=== PATIENT | female | born 1960 | race Caucasian/White ===

== ENCOUNTER → 2016-12-09 | Outpatient (CLI) | payer BC ==
[~2016-12-09] MED LIST: ADVIN25/60 INH; ALBUAER19 INH; ALPR-411 PO; APIX1TAB3 PO; ASPI81TA28 PO; BUPR150T7 PO; BUPR200T2 PO; CALC500T83 PO; DIPH25CA5 PO; GABA-113 PO; LIOT5TAB PO; LIOT5TAB9 PO; METF1000 PO; MULT-506 PO; OMEP20CA59 PO; PRAV80TA2 PO; PRVC40 PO; SNG10 PO; SPIR25TA PO; SPRIN/30 INH; SYN125 PO; THIO5CAP2 PO; TIOTCAP INH; TMB100 PO; VERA1TAB60 PO; VNTHFA/IN INH; VRPSR240 PO
--- NOTE | 2016-12-09 10:18 | DIAGNOSTIC IMAGING REPORT ---
(BARIUM SWALLOW) ESOPHAGUS CLINICAL HISTORY: DIFFICULTY SWALLOWING COMPARISON STUDY: None FLUOROSCOPY TIME: 1.4 minutes. 24 fluoroscopic spot images were acquired.. FINDINGS: The patient swallowed effervescent granules and barium without difficulty. Spot films of the pharynx examination were unremarkable. Slight mechanics appeared normal. There is no aspiration. No esophageal masses or ulcerations were visualized. The patient swallowed one half inch barium tablet which freely passed the stomach. There is disordered esophageal motility. There is a small sliding hiatal hernia. IMPRESSION: Small sliding hiatal hernia. Disordered esophageal motility. Otherwise normal study. Electronically signed by: Eric Agarwal M.D. 12/09/2016 10:16 AM Dictated Date/Time: 12/09/2016 10:14 AM
== END | disposition home or self-care (01) ==
LOC: C.RAD 09:02
PROVIDERS: ATTEND Family Medicine
DX: K22.4 Dyskinesia of esophagus (principal); K44.9 Diaphragmatic hernia without obstruction or gangrene

== ENCOUNTER → 2017-05-25 | Outpatient (CLI) | payer BC ==
[~2017-05-25] MED LIST changes: +BND25 PO; -DIPH25CA5 PO
--- NOTE | 2017-05-27 15:48 | MAMMOGRAPHY REPORT ---
BILATERAL DIGITAL SCREENING MAMMOGRAM TOMOSYNTHESIS WITH CAD: 05/25/2017 CLINICAL HISTORY: Routine screening. Patient has no complaints. TECHNIQUE: Breast tomosynthesis in addition to standard 2D mammography was performed. Current study was also evaluated with a Computer Aided Detection (CAD) system. Note that the patient had to return on 05/27/2017 for repeat bilateral CC and MLO 2-D images due to motion artifact. COMPARISON: Comparison is made to exams dated: 06/02/2016 mammogram, 05/19/2016 mammogram, 05/06/2016 mammogram, 05/05/2015 mammogram, 05/02/2014 mammogram, and 04/26/2013 mammogram - [facility] enter. BREAST COMPOSITION: There are scattered areas of fibroglandular density in both breasts. FINDINGS: No suspicious masses, calcifications, or areas of architectural distortion are noted in ei ther breast. There are new post surgical changes in the right subareolar breast from surgical excisi on of a papilloma, with new architectural distortion and density noted at the surgical bed. Bilatera l benign-appearing calcifications are not significantly changed. Bilateral asymmetries are stable. IMPRESSION: ACR BI-RADS CATEGORY 2: BENIGN There is no mammographic evidence of malignancy in either breast. A 1 year screening mammogram is rec ommended. The patient will receive written notification of the results. Approximately 10% of breast cancers are not detected with mammography. A negative mammographic report should not delay biopsy if a clinically suggestive mass is present. Annabel Lopez M.D. /:05/27/2017 12:36:58 Newspaper Managing Editor: Terra HENNESSY(Bianka)(Lamar)(CANDELARIO), [facility] letter sent: Normal 1/2 BI-RADS Code: ACR BI-RADS Category 2: Benign
== END | disposition home or self-care (01) ==
LOC: C.MAMM 17:02
PROVIDERS: ATTEND Obstetrics & Gynecology
DX: Z12.31 Encounter for screening mammogram for malignant neoplasm of breast (principal)

== ENCOUNTER 2017-05-27 15:39 | Inpatient (IN) | payer BC, OTHER ==
[~2017-05-27] VITALS: Ht 154.9 cm; Wt 74.1 kg
[2017-05-27] VITALS (7 sets, daily range): BP systolic 119–184; BP diastolic 73–94; PULSE 66–89; TEMP 36.4–36.5; O2SAT 93–98; Ht 154.9 cm; Wt 74.1 kg
[~2017-05-27 15:39] MED LIST changes: -ADVIN25/60 INH; -BND25 PO; -BUPR200T2 PO; -LIOT5TAB9 PO; -METF1000 PO; -OMEP20CA59 PO; -PRAV80TA2 PO; -SPRIN/30 INH; -VNTHFA/IN INH; -VRPSR240 PO
[2017-05-27] MEDS ORDERED: SODIUM CHLORIDE 0.9% 1000ML 1,000 ML IV SCH ×2 (16:09→20:00)
[2017-05-27 16:34] LABS: BASO % 0.3 %; BASO ABS # 0.02 K/uL (0-0.2); COMPLETE YES; EOS % 1.3 %; HEMATOCRIT 39.9 % (37-47); IG% 0.1 %; LYMPH % 33.2 %; MEAN CELL VOLUME 71.3 fL (80-100); MEAN CORPUSCULAR HEMOGLOBIN 24.6 pg (25-34); MEAN CORPUSCULAR HGB CONC 34.6 g/dl (32-36); MONO % 11.7 %; NEUT % 53.4 %; PLATELET COUNT 289 K/uL (130-400); WHITE BLOOD COUNT 6.93 K/uL (4.8-10.8)
--- NOTE | 2017-05-27 16:34 | DIAGNOSTIC IMAGING REPORT ---
HEAD WITHOUT CONTRAST (CT) CLINICAL HISTORY: 56 years-old Female presenting with Stroke. TECHNIQUE: Multidetector CT imaging of the head was performed without the use of intravenous contrast. IV contrast: None. A dose lowering technique was used consistent with the principles of ALARA (as low as reasonably achievable). COMPARISON: 11/04/2013. CT DOSE (mGy.cm): The estimated cumulative dose is 537.48 mGy.cm. FINDINGS: Frame Catcher topogram: Unremarkable. Ventricles and sulci normal in size. Periventricular and subcortical white matter hypoattenuation, nonspecific but likely indicative of chronic small vessel ischemic change. This is unchanged from prior exam. No mass effect or midline shift. No hemorrhage or acute territorial infarct. No extra-axial fluid collection. Paranasal sinuses and mastoid air cells clear. Calvarium intact. IMPRESSION: 1. No acute intracranial pathology. 2. Stable appearance of extensive chronic small vessel ischemic change. Electronically signed by: Rafael Nelson M.D. 05/27/2017 4:33 PM Dictated Date/Time: 05/27/2017 4:32 PM
[2017-05-27 16:42] LABS: INR 0.9 (0.9-1.1); PARTIAL THROMBOPLASTIN RATIO 1.3; PROTHROMBIN TIME (PATIENT) 9.9 SECONDS (9.0-12.0)
[2017-05-27 16:45] LABS: BLOOD UREA NITROGEN 11 mg/dl (7-18); BUN/CREATININE RATIO 15.5 (10-20); CALCIUM 9.4 mg/dl (8.5-10.1); CARBON DIOXIDE 24 mmol/L (21-32); CHLORIDE 92 mmol/L (98-107); CREATININE 0.68 mg/dl (0.60-1.20); GLUCOSE 92 mg/dl (70-99); POTASSIUM 4.3 mmol/L (3.5-5.1); SODIUM 127 mmol/L (136-145)
[2017-05-27 16:49] LABS: CKMB/CK RATIO 1.3 (0-3.0)
--- NOTE | 2017-05-27 17:00 | DIAGNOSTIC IMAGING REPORT ---
CHEST ONE VIEW PORTABLE CLINICAL HISTORY: 56 years-old Female presenting with Stroke. TECHNIQUE: Portable upright AP view of the chest was obtained. COMPARISON: 10/25/2014. FINDINGS: Atherosclerosis of aortic arch. Cardiac silhouette top normal in size. Lungs and pleural spaces clear. Osseous structures normal. Upper abdomen normal. IMPRESSION: 1. No acute cardiopulmonary disease. Electronically signed by: Rafael Nelson M.D. 05/27/2017 4:58 PM Dictated Date/Time: 05/27/2017 4:57 PM
[2017-05-27] MEDS ORDERED: PRAV80TA2 PO (17:52)
[2017-05-27] MEDS ORDERED: VRPSR240 PO (17:52)
[2017-05-27] MEDS ORDERED: BUPR200T2 PO (17:52)
[2017-05-27] MEDS ORDERED: LIOT5TAB9 PO (17:52)
[2017-05-27] MEDS ORDERED: ADVIN25/60 INH (17:55)
[2017-05-27] MEDS ORDERED: SPRIN/30 INH (17:55)
[2017-05-27] MEDS ORDERED: VNTHFA/IN INH (17:56)
--- NOTE | 2017-05-27 18:12 | EMERGENCY ROOM VISIT NOTE ---
History Report prepared by Natalya: Asmita Polanco Under the Supervision of: Dr. Basilio Flores M.D. First contact with patient: 16:00 Chief Complaint: STROKE SYMPTOMS Stated Complaint: DIZZINESS Nursing Triage Summary: pt to the ED via EMS from home after around 1415 she felt like something let loose in her head. pt states that she thinks she has a bleeding on her brain. she has a hx of previous CVA and LA with stents pt states that she has a funny feeling on her left arm and left leg as well as face History of Present Illness The patient is a 56 year old female who presents to the Emergency Room with complaints of persistent stroke symptoms starting 1415 today. The patient was watching TV and drinking coffee when she felt "something let go" in her brain. She is concerned for a brain bleed because she is on Eliquis. She started having dizziness which she describes as a lightheadedness and loss of equilibrium. She denies any room spinning. She had trouble walking and abnormal speech. She was not slurring her speech, but states that her mouth felt like it was not working. She was able to find words and understand words. She was with her son at the time. Her dizziness is improving. She is started to have a headache on the left side. She denies any fever or recent illness. She had a stroke 20 years ago. She had trouble writing with her right hand at that time.she currently still has some problems with fine motor skills in the right hand. She has a history of atrial fibrillation. Source of History: patient Onset: 1414 today Position: other (global) Quality: other (stroke symptoms) Timing: other (persistent) Associated Symptoms: + headache, No fevers, No weakness, No numbness Note: Pt reports lightheadedness, trouble walking, abnormal speech. Review of Systems See HPI for pertinent positives & negatives. A total of 10 systems reviewed and were otherwise negative. Past Medical & Surgical Medical Problems: (1) Asthma W/O Status Asthm (2) Asthma, Chronic Obstructive Wo Asthmaticus, Act Exac Or Unsp (3) Coron Atheroscler Nos Type Vessel, [place] Or Graft (4) Coronary Atherosclerosis Of [place] Coronary Vessel (5) Diab Ximena Wo Compl, Type Ii Or Unspec Type, Not Uncntrld (6) Diaphragmatic Hernia (7) Difficulty speaking (8) Diverticulosis Colon (W/O Ment Of Hemorrhage) (9) Dysmetabolic Syndrome X (10) Esophageal Reflux (11) Hyperlipidemia Nec/Nos (12) Hypertension (13) Hypertension Nos (14) Hypothyroidism Nos (15) Imbalance (16) Migraine Unspecified W/O Intractable Migraine (17) Obstructive Sleep Apnea (Adult) (Pediatric) (18) Osteomyelitis Nos-Ankle (19) Osteoporosis Nos (20) Schizoaffective Disorder, Unspecified (21) Tobacco Use Disorder Surgical Problems: (1) History of tubal ligation (2) History of wisdom tooth extraction (3) Percutaneous Translum Coron Angioplasty Status Family History Patient reports no known family medical history. Social History Smoking Status: Former Smoker Alcohol Use: none Drug Use: none Marital Status: Housing Status: lives with family Occupation Status: disabled Current/Historical Medications Scheduled Apixaban (Eliquis), 5 MG PO BID Aspirin (Aspirin Ec), 81 MG PO HS Bupropion Hcl (Wellbutrin Sr), 200 MG PO QAM Flecainide Acetate (Flecainide Acetate), 100 MG PO BID Fluticasone Prop/Salmeterol (Advair Diskus 250/50 60 Dose), 1 PUFF INH BID Levothyroxine Sodium (Synthroid), 125 MCG PO HS Liothyronine Sodium (Liothyronine Sodium), 5 MCG PO BID Metformin Hcl (Glucophage), 1,000 MG PO BID Montelukast Sod (Montelukast Sodium), 10 MG PO HS Multivitamin (Multivitamin), 1 TAB PO QAM Omeprazole (Prilosec), 20 MG PO BID Pravastatin Sodium (Pravastatin Sodium), 80 MG PO HS Spironolactone (Aldactone), 12.5 MG PO BID Thiothixene (Navane), 5 MG PO HS Tiotropium Monon (Spiriva Handihaler), 1 PUFF INH HS Verapamil HCl (Verapamil HCl ER), 240 MG PO HS Scheduled PRN Albuterol Hfa (Ventolin Hfa), 2 PUFFS INH QID PRN for SOB/Wheezing Diphenhydramine Hcl (Benadryl), 25 MG PO Q4H PRN for Allergy Symptoms Allergies Coded Allergies: Tetracycline (Verified Allergy, Intermediate, RASH; "MYCINS" ALLERGY, 02/17) Clindamycin (Verified Allergy, Unknown, "MYCINS" ALLERGY, 02/18/16) Diltiazem (Verified Allergy, Unknown, ?, 02/18/16) Sulfa Antibiotics (Verified Allergy, Unknown, ?, 02/18/16) Sumatriptan (Verified Allergy, Unknown, "TRIPTANS" ALLERGY, 02/13/16) Beta Adrenergic Blockers (Verified Adverse Reaction, Severe, SYNCOPE PER PATIENT, 02/13/16) Codeine (Verified Adverse Reaction, Severe, SYNCOPE PER PATIENT, 02/13/16) Acetaminophen (Verified Adverse Reaction, Mild, GI UPSET, 02/18/16) Oxycodone (Verified Adverse Reaction, Mild, GI UPSET, 02/18/16) Uncoded Allergies: METAL JEWELRY (Adverse Reaction, Mild, ITCHINESS "WITH CHEAP JEWELRY", 02/12) Physical Exam Vital Signs Date Time Temp Pulse Resp B/P (MAP) Pulse Ox O2 Delivery O2 Flow Rate FiO2 05/27/17 18:05 80 150/91 94 05/27/17 16:49 83 05/27/17 16:00 190/93 05/27/17 15:51 36.9 86 20 203/118 96 Room Air Physical Exam Constitutional: Vital signs reviewed. Repeat blood pressure is 190/93. Eyes: Pupils are equal round reactive to light. Conjunctiva are noninjected. ENT: Pharynx is clear without erythema or exudate. Mucous membranes are moist. Neck supple without meningeal signs. Respiratory: Clear to auscultation bilaterally. Breath sounds are equal bilaterally. Cardiovascular: Regular rate and rhythm. No rubs or gallops. GI: Soft, nondistended and nontender. Bowel sounds are present. Musculoskeletal: No peripheral edema. No lower extremity tenderness. Integumentary: No cyanosis. Neurological: The patient is awake and alert. Cranial nerves II-XII are intact , except diminished sensation to the left mid and upper face. Motor is 5 out of 5 all extremities. Sensation is intact to light touch all extremities, except diminished sensation to the left arm and leg. Normal speech. No pronator drift. No limb ataxia. Psychiatric: Normal affect. Medical Decision & Procedures ER Provider Diagnostic Interpretation: X-ray results as stated below per interpretation by me and the radiologist. Radiology results as stated below per my review and the radiologist's interpretation: CHEST ONE VIEW PORTABLE CLINICAL HISTORY: 56 years-old Female presenting with Stroke. TECHNIQUE: Portable upright AP view of the chest was obtained. COMPARISON: 10/25/2014. FINDINGS: Atherosclerosis of aortic arch. Cardiac silhouette top normal in size. Lungs and pleural spaces clear. Osseous structures normal. Upper abdomen normal. IMPRESSION: 1. No acute cardiopulmonary disease. Electronically signed by: Rafael Nelson M.D. 05/27/2017 4:58 PM Dictated Date/Time: 05/27/2017 4:57 PM HEAD WITHOUT CONTRAST (CT) CLINICAL HISTORY: 56 years-old Female presenting with Stroke. TECHNIQUE: Multidetector CT imaging of the head was performed without the use of intravenous contrast. IV contrast: None. A dose lowering technique was used consistent with the principles of ALARA (as low as reasonably achievable). COMPARISON: 11/04/2013. CT DOSE (mGy.cm): The estimated cumulative dose is 537.48 mGy.cm. FINDINGS: Nurse Companion topogram: Unremarkable. Ventricles and sulci normal in size. Periventricular and subcortical white matter hypoattenuation, nonspecific but likely indicative of chronic small vessel ischemic change. This is unchanged from prior exam. No mass effect or midline shift. No hemorrhage or acute territorial infarct. No extra-axial fluid collection. Paranasal sinuses and mastoid air cells clear. Calvarium intact. IMPRESSION: 1. No acute intracranial pathology. 2. Stable appearance of extensive chronic small vessel ischemic change. Electronically signed by: Rafael Nelson M.D. 05/27/2017 4:33 PM Dictated Date/Time: 05/27/2017 4:32 PM Laboratory Results 05/27/17 15:18 Red Blood Count 5.60, Mean Corpuscular Volume 71.3, Mean Corpuscular Hemoglobin 24.6, Mean Corpuscular Hemoglobin Concent 34.6, Mean Platelet Volume 10.0, Neutrophils (%) (Auto) 53.4, Lymphocytes (%) (Auto) 33.2, Monocytes (%) (Auto) 11.7, Eosinophils (%) (Auto) 1.3, Basophils (%) (Auto) 0.3, Neutrophils # (Auto ) 3.70, Lymphocytes # (Auto) 2.30, Monocytes # (Auto) 0.81, Eosinophils # (Auto ) 0.09, Basophils # (Auto) 0.02 05/27/17 15:18 Test 05/27/17 15:18 White Blood Count 6.93 K/uL (4.8-10.8) Red Blood Count 5.60 M/uL (4.2-5.4) Hemoglobin 13.8 g/dL (12.0-16.0) Hematocrit 39.9 % (37-47) Mean Corpuscular Volume 71.3 fL (80-100) Mean Corpuscular Hemoglobin 24.6 pg (25-34) Mean Corpuscular Hemoglobin Concent 34.6 g/dl (32-36) Platelet Count 289 K/uL (130-400) Mean Platelet Volume 10.0 fL (7.4-10.4) Neutrophils (%) (Auto) 53.4 % Lymphocytes (%) (Auto) 33.2 % Monocytes (%) (Auto) 11.7 % Eosinophils (%) (Auto) 1.3 % Basophils (%) (Auto) 0.3 % Neutrophils # (Auto) 3.70 K/uL (1.4-6.5) Lymphocytes # (Auto) 2.30 K/uL (1.2-3.4) Monocytes # (Auto) 0.81 K/uL (0.11-0.59) Eosinophils # (Auto) 0.09 K/uL (0-0.5) Basophils # (Auto) 0.02 K/uL (0-0.2) RDW Standard Deviation 43.7 fL (36.4-46.3) RDW Coefficient of Variation 17.0 % (11.5-14.5) Immature Granulocyte % (Auto) 0.1 % Immature Granulocyte # (Auto) 0.01 K/uL (0.00-0.02) Prothrombin Time 9.9 SECONDS (9.0-12.0) Prothromb Time International Ratio 0.9 (0.9-1.1) Activated Partial Thromboplast Time 34.9 SECONDS (21.0-31.0) Partial Thromboplastin Ratio 1.3 Anion Gap 11.0 mmol/L (3-11) Est Creatinine Clear Calc Drug Dose 85.8 ml/min Estimated GFR () 111.8 Estimated GFR (Non- 96.4 BUN/Creatinine Ratio 15.5 (10-20) Calcium Level 9.4 mg/dl (8.5-10.1) Total Creatine Kinase 94 U/L (26-192) Creatine Kinase MB 1.2 ng/ml (0.5-3.6) Creatine Kinase MB Ratio 1.3 (0-3.0) Troponin I < 0.015 ng/ml (0-0.045) Laboratory results as reviewed by me. Medications Administered Medications (Trade) Dose Ordered Sig/Lulu Route Start Time Stop Time Status Last Admin Dose Admin Sodium Chloride 1,000 ml @ 50 mls/hr Q20H IV 05/27/17 16:09 06/26/17 16:08 05/27/17 16:39 50 MLS/HR ECG Indication: other (stroke symptoms) Rate (beats per minute): 89 Rhythm: normal sinus Findings: ST depression (slight in V4-V6), no ectopy ED Course 1602: The patient was evaluated in room A4A. A complete history and physical exam was performed. 1609: NSS 1000 ml @ 50 mls/hr IV. 1700: I reevaluated the patient. Her blood pressure is now 178/96. She had a headache lasting 30-[address] which has completely resolved. I discussed the results with her. She verbalizes agreement of the treatment plan. She will be evaluated for further management. 1710: [facility] We discussed the patient and her results. The patient will be further evaluated by her. 1740: I spoke with Rhonda Lopez and informed her about the EKG findings. Medical Decision This is a 56-year-old female who presents with neurologic symptoms. Differential diagnosis includes TIA, CVA, intracranial hemorrhage, intracranial mass, metabolic derangement. I did perform a limited focused review of portions of the patient's old chart on the electronic medical record. The patient has had no recent pertinent visits to this hospital. I did evaluate the patient as noted above. The patient is presenting with dizziness and trouble with her speech starting at 2:00 PM today. She is taking Eliquis and is therefore not a TPA candidate. On examination she does have some diminished sensation on the left side including her arm, leg and upper and mid face. IV access was established. The patient was placed on a continuous diagnostic cardiac sonographer. I did order and personally review the patient's 12-lead EKG and chest x-ray as described above. Her EKG shows some mild ST depressions but she denies any chest pain or shortness of breath. I did order and review the patient's blood work as noted in the electronic medical record. Troponin is negative. She is mildly hyponatremic. I did order a CT of the head. I did review the images myself as well as the radiology report as described above. There is no evidence of acute intracranial process. I did reassess the patient. Her blood pressure steadily decreasing without any intervention. She states that whenever she goes to Hospital she has very high blood pressure which comes down on its own over several hours. I did discuss the test results with the patient and recommended hospitalization for further evaluation. I did discuss case with the hospitalist and case management associate. Medication Reconcilliation Current Medication List: was personally reviewed by me Blood Pressure Screening Patient's blood pressure: Elevated blood pressure Blood pressure disposition: Referred to PCP Consults Time Called: 1705 Consulting Physician: Rhonda Lopez PA-C [facility] hospitalist service Returned Call: 1710 I spoke with her. We discussed the patient and her results. The patient will be further evaluated by her. Impression Primary Impression: Dysarthria Additional Impressions: Disequilibrium Hyponatremia Poorly-controlled hypertension Left sided numbness Scribe Attestation The scribe's documentation has been prepared under my direct and personally reviewed by me in its entirety. I confirm that the note above accurately reflects all work, treatment, procedures, and medical decision making performed by me. Departure Information Dispostion Being Evaluated By Hospitalist Referrals Rd Anglin D.O. (PCP) Patient Instructions My [facility] Problem Qualifiers
[2017-05-27] MEDS ORDERED: BND25 PO (18:28)
[2017-05-27] MEDS ORDERED: METF1000 PO (18:28)
[2017-05-27] MEDS ORDERED: OMEP20CA59 PO (18:28)
[2017-05-27] MEDS ORDERED: ONDANSETRON INJ 2 MG/ML 2 ML VIAL IV PRN (18:45)
[2017-05-27] MEDS ORDERED: PHARMACIST DISCHARGE MED REC CONSULT PRN (18:45)
[2017-05-27] MEDS ORDERED: ASPIRIN 81 MG ECTAB PO ONE (19:20)
[2017-05-27] MEDS ORDERED: ALBUTEROL HFA 8 GM INHALER INH PRN (19:30)
--- NOTE | 2017-05-27 20:24 | History and Physical ---
History & Physical Date & Time of Service: May 27, 2017 at 19:49 Chief Complaint: Difficulty Speaking, Imbalance Primary Care Physician: Rd Anglin D.O. History of Present Illness Source: patient, clinic records, hospital records This is a 56yo F with a PMH of HTN, DM II, remote history of CVA, chronic A Fib (on Eliquis), CAD (s/p stent), schizoaffective disorder and other medical problems listed below who presents with stroke-like symptoms around 2 this afternoon. Patient was at home watching TV when she suddenly felt like "something let up" in her head. She further clarified this to mean that she felt a zimmerman of fluid to her head. When she stood up to get her son, she felt imbalanced while walking and had to hold onto the wall. When discussing these events with her son, she states that it was difficult to move her bottom lip. Also endorses a L-sided headache. Denies any facial droop, difficulty with word finding, motor weakness, etc. Son called EMS and patient was evaluated in the ER. By this point, all previous symptoms had resolved and patient started to experience L sided numbness including her L upper cheek, forearm and chance. Had a stroke approximately 20 years ago and has residual difficulty with fine motor skills such as chopping and dicing vegetables. Unable to find any imaging on chart review. Patient has been taking all medications regularly, including a Eliquis, baby aspirin and a statin. Admits to eating a high sodium diet lately and home BP readings have subsequently been higher than usual, with an average SBP of 175- 180. Denies any current lightheadedness, headache, visual changes, difficulty with speech, CP, SOB, weakness in any extremity, difficult with ambulation. Continues to endorse a fuzzy, numb feeling on left cheek. Numbness of L forearm and L lower leg are resolving. Past Medical/Surgical History Medical Problems: (1) Atrial fibrillation Status: Chronic (2) CAD (coronary artery disease) Status: Chronic (3) COPD (chronic obstructive pulmonary disease) Status: Chronic (4) Depression Status: Chronic (5) DM II (diabetes mellitus, type II), controlled Status: Chronic (6) Hypertension Status: Chronic (7) RAKESH on CPAP Status: Chronic (8) Schizoaffective disorder Status: Chronic Surgical Problems: (1) History of tubal ligation Status: Resolved (2) History of wisdom tooth extraction Status: Resolved Family History Family history was reviewed; no changes noted. Social History Smoking Status: Former Smoker (Quit in 2009) Drug Use: none Marital Status: Housing status: lives with family Occupational Status: disabled Immunizations History of Influenza Vaccine: N/A History of Tetanus Vaccine?: Yes History of Pneumococcal: Yes History of Hepatitis B Vaccine: Yes Multi-Drug Resistant Organisms History of MDRO: No Allergies Coded Allergies: Tetracycline (Verified Allergy, Intermediate, RASH; "MYCINS" ALLERGY, 02/17) Clindamycin (Verified Allergy, Unknown, "MYCINS" ALLERGY, 02/18/16) Diltiazem (Verified Allergy, Unknown, ?, 02/18/16) Sulfa Antibiotics (Verified Allergy, Unknown, ?, 02/18/16) Sumatriptan (Verified Allergy, Unknown, "TRIPTANS" ALLERGY, 02/13/16) Beta Adrenergic Blockers (Verified Adverse Reaction, Severe, SYNCOPE PER PATIENT, 02/13/16) Codeine (Verified Adverse Reaction, Severe, SYNCOPE PER PATIENT, 02/13/16) Acetaminophen (Verified Adverse Reaction, Mild, GI UPSET, 02/18/16) Oxycodone (Verified Adverse Reaction, Mild, GI UPSET, 02/18/16) Uncoded Allergies: METAL JEWELRY (Adverse Reaction, Mild, ITCHINESS "WITH CHEAP JEWELRY", 02/12) Home Medications Scheduled Apixaban (Eliquis), 5 MG PO BID Aspirin (Aspirin Ec), 81 MG PO HS Bupropion Hcl (Wellbutrin Sr), 200 MG PO QAM Flecainide Acetate (Flecainide Acetate), 100 MG PO BID Fluticasone Prop/Salmeterol (Advair Diskus 250/50 60 Dose), 1 PUFF INH BID Levothyroxine Sodium (Synthroid), 125 MCG PO HS Liothyronine Sodium (Liothyronine Sodium), 5 MCG PO BID Metformin Hcl (Glucophage), 1,000 MG PO BID Montelukast Sod (Montelukast Sodium), 10 MG PO HS Multivitamin (Multivitamin), 1 TAB PO QAM Omeprazole (Prilosec), 20 MG PO BID Pravastatin Sodium (Pravastatin Sodium), 80 MG PO HS Spironolactone (Aldactone), 12.5 MG PO DAILY Thiothixene (Navane), 5 MG PO HS Tiotropium [place] (Spiriva [place]), 1 PUFF INH HS Verapamil HCl (Verapamil HCl ER), 240 MG PO HS Scheduled PRN Albuterol Hfa (Ventolin Hfa), 2 PUFFS INH QID PRN for SOB/Wheezing Review of Systems Constitutional- no fever; no weight loss Eyes- See HPI ENT- no sinus drainage; no pharyngitis Pulmonary- no cough, no wheezing, no shortness of breath Cardiac- See HPI GI- no nausea, no vomiting, no diarrhea, no melena, no hematochezia - no dysuria, no hematuria Musculoskeletal- no arthralgias, no myalgias Derm- no rashes, no new skin lesions, no changing skin lesions Hematologic- no unusual bruising, no unusual bleeding Lymphatics- no adenopathy Endocrine- no polyuria or polydipsia; no heat or cold intolerance Neuro- See HPI Psych- no anxiety, no depression Physical Exam Vital Signs Date Time Temp Pulse Resp B/P (MAP) Pulse Ox O2 Delivery O2 Flow Rate FiO2 05/27/17 19:30 36.4 84 18 184/77 (112) 94 Room Air 05/27/17 19:21 36.4 84 18 184/77 94 Room Air 05/27/17 18:05 80 150/91 94 05/27/17 16:49 83 05/27/17 16:00 190/93 05/27/17 15:51 36.9 86 20 203/118 96 Room Air General Appearance: WD/WN, no apparent distress, + pertinent finding (Some involuntary movement of mouth and tongue) Head: normocephalic, atraumatic Eyes: normal inspection, PERRL, EOMI, sclerae normal ENT: hearing grossly normal Neck: supple, no adenopathy, thyroid normal, trachea midline Respiratory/Chest: chest non-tender, no respiratory distress, no accessory muscle use, + wheezing (Scattered expiratory wheezes) Cardiovascular: regular rate, rhythm, no murmur, normal peripheral pulses Abdomen/GI: normal bowel sounds, non tender, soft, no organomegaly Back: normal inspection Extremities/Musculoskelatal: normal inspection, no calf tenderness, normal capillary refill, no pedal edema Neurologic/Psych: towel 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 Otherwise CN exam wnl. FAROM, 5/5 ERMIAS. Gait normal. Negative pronator drift.), no motor/sensory deficits, alert, normal mood/affect, oriented x 3 Skin: normal color, warm/dry, no rash Diagnostics Laboratory Results Results Past 24 Hours Test 05/27/17 15:18 05/27/17 16:35 Range/Units White Blood Count 6.93 4.8-10.8 K/uL Red Blood Count 5.60 4.2-5.4 M/uL Hemoglobin 13.8 12.0-16.0 g/dL Hematocrit 39.9 37-47 % Mean Corpuscular Volume 71.3 80-100 fL Mean Corpuscular Hemoglobin 24.6 25-34 pg Mean Corpuscular Hemoglobin Concent 34.6 32-36 g/dl Platelet Count 289 130-400 K/uL Mean Platelet Volume 10.0 7.4-10.4 fL Neutrophils (%) (Auto) 53.4 % Lymphocytes (%) (Auto) 33.2 % Monocytes (%) (Auto) 11.7 % Eosinophils (%) (Auto) 1.3 % Basophils (%) (Auto) 0.3 % Neutrophils # (Auto) 3.70 1.4-6.5 K/uL Lymphocytes # (Auto) 2.30 1.2-3.4 K/uL Monocytes # (Auto) 0.81 0.11-0.59 K/uL Eosinophils # (Auto) 0.09 0-0.5 K/uL Basophils # (Auto) 0.02 0-0.2 K/uL RDW Standard Deviation 43.7 36.4-46.3 fL RDW Coefficient of Variation 17.0 11.5-14.5 % Immature Granulocyte % (Auto) 0.1 % Immature Granulocyte # (Auto) 0.01 0.00-0.02 K/uL Prothrombin Time 9.9 9.0-12.0 SECONDS Prothromb Time International Ratio 0.9 0.9-1.1 Activated Partial Thromboplast Time 34.9 21.0-31.0 SECONDS Partial Thromboplastin Ratio 1.3 Sodium Level 127 136-145 mmol/L Potassium Level 4.3 3.5-5.1 mmol/L Chloride Level 92 98-107 mmol/L Carbon Dioxide Level 24 21-32 mmol/L Anion Gap 11.0 3-11 mmol/L Blood Urea Nitrogen 11 7-18 mg/dl Creatinine 0.68 0.60-1.20 mg/dl Est Creatinine Clear Calc Drug Dose 85.8 ml/min Estimated GFR () 111.8 Estimated GFR (Non- 96.4 BUN/Creatinine Ratio 15.5 10-20 Random Glucose 92 70-99 mg/dl Osmolality 264 280-300 mOsm/kg Calcium Level 9.4 8.5-10.1 mg/dl Total Creatine Kinase 94 26-192 U/L Creatine Kinase MB 1.2 0.5-3.6 ng/ml Creatine Kinase MB Ratio 1.3 0-3.0 Troponin I < 0.015 0-0.045 ng/ml Bedside Glucose 98 70-90 mg/dl Diagnostic Radiology Head CT: IMPRESSION: 1. No acute intracranial pathology. 2. Stable appearance of extensive chronic small vessel ischemic change. CXR normal EKG Normal sinus rhythm Possible Left atrial enlargement Otherwise Normal ECG Impression Assessment and Plan This is a 56yo F with a PMH of HTN, DM II, remote history of CVA, chronic A Fib (on Eliquis), CAD (s/p stent), schizoaffective disorder and other medical problems listed below who presents with stroke-like symptoms around 2 this afternoon. Stroke work-up: -H/o CVA 20 years ago at age 33 -Unable to obtain more details on chart review -Has residual difficulty with fine motor movement of hands -CT head without any acute event -Work up: MRI brain without, MRA head without, MRA neck combo, echo -Fasting lipid panel and hgb a1c in AM -Continue baby aspirin, statin, Eliquis -Discussed with neuro, who recommended an extra dose of aspirin -PT/OT/Speech evals, discharge planning H/o insulin resistance: -Last hgb a1c of 5.8 -Takes metformin at home -No formal diagnosis of DM II -Continue metformin -BG checks AC HS Hyponatremia: -Na of 125 on admission -Dry on exam; initiated 1 L NSS @ 75mL -Held spironolactone -Could be SIADH 2/2 antipsychotic side effects -Serum osm, urine osm pending -Check Na Q4 hours A fib: -NSR on admission EKG -Continue Eliquis, flecainide HTN: -Initially elevated to SBP of 200, now down to 184/77 -Continue verapamil -Held spironolactone for now COPD: -Stable -Continue home inhalers, nebs, singular -Does not require home O2 CAD (s/p stent): -No chest pain -EKG with NSR, some questionable ST depression in V4-V6 -Initial troponin negative -Repeat EKG in AM RAKESH: -Stable -CPAP set-up ordered Hypothyroidism: -Continue home meds Schizoaffective disorder: -Continue thiothixene -Follows with out-patient psychiatrist Depression: -Continue bupropion DVT Ppx: On Eliquis Code status: FULL PCP: MEREDITH consulted for discharge per stroke protocol ATTENDING ADDENDUM delayed entry date of services as noted above care coordinated with DAKOTA Lopez please refer to her notes for full details, I agree with her notes patient seen and examined, records reviewed by myself as well on exam, patient seen sitting up in bed, in good spirits states left lower face numbness, left arm and lower leg numbness are improving denies other new neurologic symptoms no other symptoms VS noted and reviewed oriented x 3 , not in distress, speaks in sentences with no effort nor accessory muscle use normal rate, regular rhythm, no murmurs clear breath sounds bilaterally non distended, soft, nontender no bipedal edema, erythema, warmth mild decreased sensation small area on the left lower half of the face, left dorsal forearm, left anterior lower leg; otherwise no other focal neuro deficits Na [address] head: no acute CVA ASSESSMENT/PLAN> LEFT FACE, ARM, LEG WEAKNESS HISTORY OF A FIB ON ELIQUIS - symptoms improving - Brain MRI and MRA ordered discussed with Neurologist - continue Eliquis, Aspirin HYPONATREMIA - likely hypovolemic, possible SIADH - hold Aldactone, trial of NSS - monitor Na other diagnoses and plan of care as per DAKOTA Lopez's notes Reji Dos Santos MD Level of Care Telemetry Advanced Directives Existing Living Will: No Existing Power of Composite Bond Technician: No Resuscitation Status FULL RESUSCITATION VTE Prophylaxis VTE Risk Assessment Done? Y/N: Yes Risk Level: High Given or contraindicated: Other Anticoagulation Social Service Consult None Apply
[2017-05-27] MEDS ORDERED: INFLUENZA ADMINISTRATION CHARGE ONE (20:45)
[2017-05-27] MEDS ORDERED: INFLUENZA VIRUS QUAD VACCINE 0.5 ML SYR IM. ONE (20:45)
[2017-05-27] MEDS: FLUTICASONE/SALMETEROL 250/50 (ADVAIR) 14 PUFF/1 INHALER INH SCH (20:54)
[2017-05-27] MEDS: TIOTROPIUM BROMIDE 5 PUFF/90 MCG INH INH SCH (20:55)
[2017-05-27] MEDS: APIXABAN 2.5 MG TAB PO SCH (20:56)
[2017-05-27] MEDS: ASPIRIN 81 MG ECTAB PO SCH (20:56)
[2017-05-27] MEDS: VERAPAMIL HCL 240 MG TABCR PO SCH (20:56)
[2017-05-27] MEDS: THIOTHIXENE 5 MG CAP PO SCH (20:57)
[2017-05-27] MEDS: PANTOprazole SOD 40 MG TAB PO SCH (20:57)
[2017-05-27] MEDS: PRAVASTATIN SOD 40 MG TAB PO SCH (20:57)
[2017-05-27] MEDS: FLECAINIDE ACETATE 100 MG TAB PO SCH (20:58)
[2017-05-27] MEDS: MONTELUKAST SOD 10 MG TAB PO SCH (20:58)
[2017-05-27] MEDS ORDERED: LIOTHYRONINE SODIUM 5 MCG TAB PO SCH (21:00)
[2017-05-27] MEDS ORDERED: GADAVIST IV PRN (21:00)
--- NOTE | 2017-05-27 21:32 | DIAGNOSTIC IMAGING REPORT ---
BRAIN WITHOUT CONTRAST CLINICAL HISTORY: 56 years-old Female presenting with Stroke, dizzy for 4 hours, vision nolan fluid moving around in the brain and that brain is shadowing down, difficulty walking, history of stroke at the age of 35. TECHNIQUE: Multisequence, multiplanar MR imaging of the brain was performed without the use of intravenous contrast. IV contrast: None. COMPARISON: Correlation made to brain MR from 2014. FINDINGS: Ventricles and sulci normal in size. Periventricular and subcortical white matter T2/FLAIR hyperintensity, nonspecific but likely indicative of chronic small vessel ischemic change. These abnormalities are characterized by confluent white matter hyperintensity. Notably, the anterior temporal lobes are prominently involved. The severity and extent of disease is unchanged from prior. Extensive chronic infarct in the left basal ganglia unchanged. Additional foci of hyperintensity in the midbrain and king. No mass effect or midline shift. No restricted diffusion to suggest acute ischemia. No hemorrhage. No extra-axial fluid collection. T2 skull base flow voids preserved. Bone marrow signal intensity within the calvarium within normal limits. [place] lenses are absent from the globes bilaterally. IMPRESSION: 1. No acute intracranial abnormality. 2. Chronic severe subcortical white matter disease with focal old infarcts in the left basal ganglia and midbrain/king. 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 Differential considerations include subcortical arteriosclerotic encephalopathy or Susac syndrome. Electronically signed by: Rafael Nelson M.D. 05/27/2017 9:31 PM Dictated Date/Time: 05/27/2017 9:20 PM
--- NOTE | 2017-05-27 21:38 | DIAGNOSTIC IMAGING REPORT ---
MRA HEAD WITHOUT CONTRAST CLINICAL HISTORY: 56 years-old Female presenting with stroke, dizzy for 4 hours, difficulty ambulating, history of stroke at age 35. TECHNIQUE: MR angiography of the head was performed without the use of intravenous contrast using 3-D [id number] technique. 3-D volumetric and/or maximum intensity projection (MIP) images were subsequently reconstructed for review. IV contrast: None.. COMPARISON: None. FINDINGS: Anterior circulation demonstrates patent intracranial portions of the internal carotid arteries. Patent anterior and middle cerebral arteries and patent anterior commuting artery. Posterior circulation demonstrates codominant vertebral arteries with a patent basilar artery. Bilateral superior cerebellar and posterior cerebral arteries patent. Bilateral posterior communicating arteries patent. No evidence of aneurysm, focal vessel occlusion, or significant stenosis. IMPRESSION: 1. No significant stenosis, aneurysm, or focal vessel occlusion. Electronically signed by: Rafael Nelson M.D. 05/27/2017 9:36 PM Dictated Date/Time: 05/27/2017 9:32 PM
--- NOTE | 2017-05-27 21:45 | DIAGNOSTIC IMAGING REPORT ---
MRA NECK COMBO CLINICAL HISTORY: 56 years-old Female presenting with stroke like symptoms, dizzy for 4 hours, difficulty angulating. TECHNIQUE: MR angiography of the neck was performed before and after the administration of intravenous contrast. 3-D volumetric and/or maximum intensity projection (MIP) images were subsequently reconstructed for review. IV contrast: None. Stenosis measurements were based on NASCET-like criteria. COMPARISON: None. FINDINGS: Three-vessel aortic arch with patent origins of the major branch vessels. Bilateral common and internal carotid arteries patent. Bilateral codominant vertebral arteries patent at their origins and along the courses. Cervical veins patent. IMPRESSION: 1. No significant stenosis, aneurysm, or focal vessel occlusion. Electronically signed by: Rafael Nelson M.D. 05/27/2017 9:43 PM Dictated Date/Time: 05/27/2017 9:37 PM
[2017-05-27] MEDS ORDERED: CLONIDINE HCL 0.1 MG TAB PO PRN (23:00)
--- NOTE | 2017-05-27 23:02 | Progress Note ---
Progress Note Date of Service May 27, 2017. Progress Note please see addendum to H&P
[2017-05-28] VITALS (7 sets, daily range): BP systolic 114–156; BP diastolic 70–84; PULSE 60–82; TEMP 36.2–37.5; O2SAT 93–96
[2017-05-28 03:50] LABS: BASO % 0.3 %; BASO ABS # 0.02 K/uL (0-0.2); COMPLETE YES; EOS % 2.2 %; HEMATOCRIT 36.9 % (37-47); IG% 0.2 %; LYMPH % 41.2 %; LYMPH ABS # 2.57 K/uL (1.2-3.4); MEAN CELL VOLUME 72.1 fL (80-100); MEAN CORPUSCULAR HEMOGLOBIN 24.8 pg (25-34); MEAN CORPUSCULAR HGB CONC 34.4 g/dl (32-36); MEAN PLATELET VOLUME 9.6 fL (7.4-10.4); MONO % 14.1 %; PLATELET COUNT 258 K/uL (130-400); RED BLOOD COUNT 5.12 M/uL (4.2-5.4); WHITE BLOOD COUNT 6.24 K/uL (4.8-10.8)
[2017-05-28 04:30] LABS: BUN/CREATININE RATIO 17.2 (10-20); CALCIUM 8.9 mg/dl (8.5-10.1); CREATININE 0.69 mg/dl (0.60-1.20); POTASSIUM 4.4 mmol/L (3.5-5.1)
[2017-05-28 04:33] LABS: CHOLESTEROL/HDL RATIO 2.1
[2017-05-28] MEDS: LEVOTHYROXINE 125 MCG TAB PO SCH (05:33)
[2017-05-28] MEDS: BuPROPion SR 100 MG TABCR PO SCH (07:29)
[2017-05-28] MEDS: APIXABAN 2.5 MG TAB PO SCH ×2 (07:30→20:03)
[2017-05-28] MEDS: FLECAINIDE ACETATE 100 MG TAB PO SCH ×2 (07:30→20:05)
[2017-05-28] MEDS: FLUTICASONE/SALMETEROL 250/50 (ADVAIR) 14 PUFF/1 INHALER INH SCH ×2 (07:30→20:00)
[2017-05-28] MEDS: PANTOprazole SOD 40 MG TAB PO SCH ×2 (07:30→20:04)
--- NOTE | 2017-05-28 12:26 | ECHOCARDIOGRAM REPORT ---
*NOTICE TO RECEIVING LIBERTARIAN AGENCY This information is strictly Confidential and protected under [place] law. [place] law prohibits you from making any further disclosure of this information unless further disclosure is expressly permitted by the written consent of the person to whom it pertains or is authorized by law. A general authorization for the release of medical or other information is not sufficient for this purpose. Hospital accepts no responsibility if the information is made available to any other person, INCLUDING THE PATIENT. Interpretation Summary * Name: ROBERT TERRAZAS Study Date: 05/28/2017 06:28 AM BP: 114/70 mmHg * Patient Location: C.2T\S\S242\S\1 HR: 67 * : 1960 (M/d/yyyy) Gender: Female Height: 61 in * Age: 56 yrs Ethnicity: CA Weight: 174 lb * Ordering Physician: Rhonda Lopez * Referring Physician: Self, Referred * Performed By: Terra Morris RCS * * Reason For Study: CEREBRAL ISCHEMIA / EMBOLUS * BSA: 1.8 m2 * No cardiac source of emboli noted. * -- Conclusions -- * Left ventricular systolic function is normal. * The left atrium is mildly dilated. * Injection of contrast documented no interatrial shunt. Procedure Details * A complete two-dimensional transthoracic echocardiogram was performed (2D, M-mode, Doppler and color flow Doppler). * A saline contrast injection was performed to assess for cardiac shunting. * The injection was performed through an intravenous line in the left arm. * The attending nurse who injected the saline contrast was MOISES BROCK, RN. * A total of 10 cc of agitated saline was given. Left Ventricle * The left ventricle is normal in size. * There is normal left ventricular wall thickness. * Left ventricular systolic function is normal. * Ejection Fraction = 55-60%. * Diastolic function appears normal. * The left ventricular wall motion is normal. Right Ventricle * The right ventricle is normal in size and function. Atria * The left atrium is mildly dilated. * Right atrial size is normal. * Injection of contrast documented no interatrial shunt. Mitral Valve * The mitral valve anatomy is normal. * Significant mitral regurgitation is absent. Tricuspid Valve * The tricuspid valve is not well visualized, but is grossly normal. * Significant tricuspid regurgitation is absent. Aortic Valve * The aortic valve is normal in structure and function. * No hemodynamically significant valvular aortic stenosis. * There is no significant aortic regurgitation. Great Vessels * The aortic root is normal size. Pericardium/Pleural * There is no pericardial effusion. MMode 2D Measurements and Calculations IVSd 1.1 cm IVSs 1.2 cm LVIDd 4.4 cm LVIDs 3.2 cm LVPWd 1.0 cm LVPWs 1.4 cm IVS/LVPW 1.0 FS 27.1 % EDV(Teich) 87.5 ml ESV(Teich) 41.1 ml EF(Teich) 53.0 % EDV(cubed) 85.0 ml ESV(cubed) 32.9 ml EF(cubed) 61.3 % % IVS thick 11.0 % % LVPW thick 34.5 % LV mass(C)d 156.6 grams LV mass(C)dI 88.0 grams/m\S\2 LV mass(C)s 132.3 grams LV mass(C)sI 74.3 grams/m\S\2 SV(Teich) 46.4 ml SI(Teich) 26.1 ml/m\S\2 SV(cubed) 52.1 ml SI(cubed) 29.2 ml/m\S\2 Ao root diam 2.7 cm Ao root area 5.8 cm\S\2 LA dimension 4.1 cm LA/Ao 1.5 LVOT diam 2.0 cm LVOT area 3.2 cm\S\2 Doppler Measurements and Calculations MV E max janes 122.4 cm/sec MV A max janes 103.5 cm/sec MV E/A 1.2 MV P1/2t max janes 129.5 cm/sec MV P1/2t 71.9 msec MVA(P1/2t) 3.1 cm\S\2 MV dec slope 527.7 cm/sec\S\2 MV dec time 0.27 sec Ao V2 max 120.9 cm/sec Ao max PG 5.8 mmHg Ao max PG (full) 2.2 mmHg LEO(V,A) 2.6 cm\S\2 LEO(V,D) 2.6 cm\S\2 LV V1 max PG 3.7 mmHg LV V1 max 96.0 cm/sec PA V2 max 96.6 cm/sec PA max PG 3.7 mmHg
--- NOTE | 2017-05-28 13:32 | NEUROLOGY CONSULTATION ---
DATE OF CONSULTATION: 05/28/2017 REASON FOR CONSULTATION: Possible stroke. HISTORY OF PRESENT ILLNESS: Rebecca is a 56-year-old right-handed female with known atrial fibrillation, for which she is on Eliquis. 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 She also has known significant white matter disease and consideration of demyelinating disease such as multiple sclerosis has been considered. She apparently saw Dr. Arce in the past for evaluation and he felt that this was more vascular than it was demyelinating. The patient additionally has a stent and schizoaffective disorder. On this background, she was in her usual state of health. She was seated and she felt like something popped in her head and something ran down the right side of her head. She said she felt dizzy, but was not lightheaded or vertiginous. She felt mildly nauseated and she felt like it was hard to move her lower lip, but was not sure whether it is unilateral or bilateral. When she got up, she was stumbling, unclear if unidirectionally or not. While in the Emergency Room, although she had no subjective complaints of numbness, she indicated that it was found that there was some numbness in the left face, arm, and leg. These symptoms lasted for about 3 or 4 hours. Prior to going into the CAT scan machine, she had a minor ice pick type headache in the left side of her head. She has had ice pick type headaches in the past. This resolved after several seconds. She did notice in this time that she had some dizziness and mild nausea with movement that was better with holding still. She has never had vertigo in the past. She has some chronic right-sided hearing loss and she has some auditory processing difficulty with her left ear. She had no tinnitus, ear pain or pressure. She has otherwise been well. Recently, amitriptyline was discontinued. She is chronically taking a diuretic. In terms of the stroke, at age 33, she was not on oral contraceptives and it was thought to be a complicated migraine. She has mild residual difficulty with writing and fine motor and peeling potatoes with the right hand. She has had some chronic difficulty with swallowing, which has been attributed to esophageal dysmotility. There was no new change in swallowing. There was no diplopia, no dysarthria, and no unilateral weakness with this episode. She has been compliant with her medication; however, has been eating a high sodium diet and her blood pressures have been running somewhat higher than baseline. Her MRI of the brain shows chronic subcortical white matter changes and an infarct in the left basal ganglia. The radiologist appropriately raises the question whether or not she could have CADASIL or a subacute cortical arteriosclerotic encephalopathy or Susac's syndrome. MRA of the head, no significant stenosis or focal occlusion. EKG, normal sinus rhythm. White count 6.9, H&H 13/39, and platelet count 289. PT 9.9 and PTT 34.9. Chemistries: Sodium was 127. Parenthetically, the patient indicates she has had lower sodiums and not been symptomatic in the past. BUN and creatinine normal. Hemoglobin A1c 5.9. LDL 51. PAST MEDICAL HISTORY: AFib, coronary artery disease status post stenting, COPD, depression, schizoaffective disorder, type 2 diabetes, hypertension, obstructive sleep apnea, tubal ligation, wisdom teeth extraction, and D&C. SOCIAL HISTORY: Former smoker. Does not use drugs or alcohol. Lives with family. FAMILY HISTORY: Mother had a stroke at 50, of breast cancer and COPD. Father had cluster headache and uncle had a stroke at 70. Grandmother had dementia. Sister, liver cancer. Brother, hypertension. Son, schizoaffective disorder. ALLERGIES: TETRACYCLINE, CLINDAMYCIN, DILTIAZEM, SULFA, SUMATRIPTAN, BETA NITO, CODEINE, TYLENOL, OXYCODONE AND METAL JEWELRY. MEDICATIONS: Aspirin 81, Eliquis 5 mg b.i.d., Wellbutrin, flecainide, Advair, Synthroid, liothyronine, Glucophage, montelukast, multiple vitamins, Prilosec, pravastatin, Aldactone, Navane, Spiriva, verapamil, and albuterol p.r.n. PHYSICAL EXAMINATION: GENERAL: She is awake and alert. Normal speech and language. Affect appropriate, oriented x3. No right/left confusion. There are no carotid bruits. HEART: No heart murmurs. Heart is regular rate and rhythm. LUNGS: Clear. ABDOMEN: Soft and nontender. EXTREMITIES: Pulses are palpable in the feet. NEUROLOGIC: Pupils are equal, round, and reactive to light. I could not reliably visualize the optic nerves. There is normal nolan, motility, and facial symmetry. There is some mild flattening of the right nasolabial fold. There is decreased light touch in the left V1. Swallowing at bedside with cracker as well as applesauce was well tolerated. Motor 5/5. No drift. Normal rapid alternating movements. Sensation is decreased, cold in the left arm and leg. Reflexes are increased on the right. Toes are downgoing. [id number] and [id number] are normal. There is no dysdiadochokinesia. Gait tandem and Romberg are normal. Provocative head maneuvers with head hanging to the right, there is some mild nausea and some latency of dizziness, but no significantly abnormal eye movements and this was fatigable. IMPRESSION: This is a complicated patient, who despite hours of neurologic symptoms, has an unchanged MRI. Much of what she complained about could be attributed to positional vertigo, and she does have some findings of the same, but that would certainly not cause lack of movement to her lower lip. It would also not cause numbness in the left arm and leg, although that was something the patient discovered only by examination. She has very significant white matter changes on MRI that is subcortical and I think it does raise the question of CADASIL, cerebral autosomal dominant leukoencephalopathy with stroke-like symptoms that could be operative in this circumstance. PLAN: Echocardiography. Monitoring for dysrhythmia, which could cause nonspecific dizziness. Continue risk factor modification. I have consulted with our pharmacist about any studies about the increased risk associated with higher dose of aspirin (162 mg) when associated with Eliquis use. The patient has not had any bleeding complications that she is aware. I doubt the hyponatremia is significant enough to explain her symptoms. Finally, although I think she should be monitored in another 24 hours for dysrhythmia, I would like to see her as an outpatient and will see if her insurance would pay for genetic testing for CADASIL. QUEENIED
[2017-05-28 19:58] LABS: BUN/CREATININE RATIO 13.1 (10-20); CALCIUM 9.4 mg/dl (8.5-10.1); CREATININE 0.88 mg/dl (0.60-1.20); POTASSIUM 4.4 mmol/L (3.5-5.1)
[2017-05-28] MEDS: TIOTROPIUM BROMIDE 5 PUFF/90 MCG INH INH SCH (20:00)
[2017-05-28] MEDS: LIOTHYRONINE SODIUM 5 MCG PO SCH (20:02)
[2017-05-28] MEDS: VERAPAMIL HCL 240 MG TABCR PO SCH (20:03)
[2017-05-28] MEDS: PRAVASTATIN SOD 40 MG TAB PO SCH (20:04)
[2017-05-28] MEDS: MONTELUKAST SOD 10 MG TAB PO SCH (20:04)
[2017-05-28] MEDS ORDERED: NURSING VERBAL MED ORDER ONE (20:15)
[2017-05-28] MEDS ORDERED: ACETAMINOPHEN 325 MG TAB PO PRN (20:30)
--- NOTE | 2017-05-28 20:49 | Progress Note ---
Medicine Progress Note Date & Time of Visit: May 28, 2017 at 20:42. Subjective sitting up in bed, comfortable states left facial numbness is about the same left arm and leg numbness have resolved denies other symptoms Objective Last 8 Hrs Date Time Temp Pulse Resp B/P (MAP) Pulse Ox O2 Delivery O2 Flow Rate FiO2 05/28/17 19:43 36.4 82 20 156/78 (104) 96 Room Air 05/28/17 16:00 93 Room Air 05/28/17 15:59 37.5 73 18 138/83 (101) 93 Room Air Physical Exam: General- oriented x 3, not in distress, speaks in sentences with no effort Head- atraumatic Eyes- EOMI, anicteric ENT- oropharynx clear Neck- supple, no JVD, no adenopathy Lungs- clear to auscultation bilaterally Heart- regular rhythm; no murmur, normal rate Abdomen- normal bowel sounds, soft, nontender Extremities- no pretibial edema, no calf tenderness Neuro- alert, oriented x 3;no gross focal neuro deficits except for mild decreased sensation left lower half of the face Skin- warm & dry Laboratory Results: Last 24 Hours Test 05/27/17 23:49 05/28/17 03:31 05/28/17 07:18 05/28/17 16:16 Sodium Level 134 mmol/L 134 mmol/L 132 mmol/L White Blood Count 6.24 K/uL Red Blood Count 5.12 M/uL Hemoglobin 12.7 g/dL Hematocrit 36.9 % Mean Corpuscular Volume 72.1 fL Mean Corpuscular Hemoglobin 24.8 pg Mean Corpuscular Hemoglobin Concent 34.4 g/dl Platelet Count 258 K/uL Mean Platelet Volume 9.6 fL Neutrophils (%) (Auto) 42.0 % Lymphocytes (%) (Auto) 41.2 % Monocytes (%) (Auto) 14.1 % Eosinophils (%) (Auto) 2.2 % Basophils (%) (Auto) 0.3 % Neutrophils # (Auto) 2.62 K/uL Lymphocytes # (Auto) 2.57 K/uL Monocytes # (Auto) 0.88 K/uL Eosinophils # (Auto) 0.14 K/uL Basophils # (Auto) 0.02 K/uL RDW Standard Deviation 44.3 fL RDW Coefficient of Variation 16.8 % Immature Granulocyte % (Auto) 0.2 % Immature Granulocyte # (Auto) 0.01 K/uL Potassium Level 4.4 mmol/L Chloride Level 100 mmol/L Carbon Dioxide Level 26 mmol/L Anion Gap 8.0 mmol/L Blood Urea Nitrogen 12 mg/dl Creatinine 0.69 mg/dl Est Creatinine Clear Calc Drug Dose 84.5 ml/min Estimated GFR () 111.2 Estimated GFR (Non- 96.0 BUN/Creatinine Ratio 17.2 Random Glucose 101 mg/dl Calcium Level 8.9 mg/dl Triglycerides Level 61 mg/dl Cholesterol Level 120 mg/dl HDL Cholesterol 57 mg/dl LDL Cholesterol, Calculated 51 mg/dl VLDL Cholesterol, Calculated 12 mg/dl Cholesterol/HDL Ratio 2.1 Bedside Glucose 127 mg/dl Test 05/28/17 19:28 05/28/17 20:20 Sodium Level 132 mmol/L Potassium Level 4.4 mmol/L Chloride Level 99 mmol/L Carbon Dioxide Level 26 mmol/L Anion Gap 7.0 mmol/L Blood Urea Nitrogen 12 mg/dl Creatinine 0.88 mg/dl Est Creatinine Clear Calc Drug Dose 64.1 ml/min Estimated GFR () 83.9 Estimated GFR (Non- 72.4 BUN/Creatinine Ratio 13.1 Random Glucose 100 mg/dl Calcium Level 9.4 mg/dl Bedside Glucose 94 mg/dl Assessment & Plan This is a 56yo F with a PMH of CAD s/p Stent, Chronic A fib on Eliquis, remote history of CVA, DM, HTN,, Schizoaffective disorder and other medical problems listed below who presents with stroke-like symptoms on the day of admission. LEFT FACIAL NUMBNESS, LEFT ARM AND LEG WEAKNESS -H/o CVA 20 years ago at age 33 -Has residual difficulty with fine motor movement of hands -CT head without any acute event -Work up: MRI brain without: IMPRESSION: 1. No acute intracranial abnormality. 2. Chronic severe subcortical white matter disease with focal old infarcts in the left basal ganglia and midbrain/king. 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 Differential considerations include subcortical arteriosclerotic encephalopathy or Susac syndrome. MRA head without, MRA neck combo: unrevealing Echo: -- Conclusions -- * Left ventricular systolic function is normal. * The left atrium is mildly dilated. * Injection of contrast documented no interatrial shunt. --- added additional Aspirin Eliquis and Statin continued monitor in Tele -- possible w/u for CADASIL as outpatient H/o insulin resistance: -Takes metformin at home A1 c5.9 -No formal diagnosis of DM II -Continue metformin -BG checks AC HS Hyponatremia: -Na of 125 on admission -Dry on exam; initiated 1 L NSS @ 75mL -Held spironolactone -Could be SIADH 2/2 antipsychotic side effects -Serum osm, urine osm: Low -- Na improved to 132 monitor A fib: -NSR on admission EKG -Continue Eliquis, flecainide HTN: improving -Continue verapamil -Held spironolactone for now COPD: -Stable -Continue home inhalers, nebs, singular -Does not require home O2 CAD (s/p stent): -No chest pain -EKG with NSR, some questionable ST depression in V4-V6 -Initial troponin negative -Repeat EKG in AM : stable RAKESH: -Stable -CPAP set-up ordered Hypothyroidism: -Continue home meds Schizoaffective disorder: -Continue thiothixene -Follows with out-patient psychiatrist Depression: -Continue bupropion DVT Ppx: On Eliquis Code status: FULL Dispo pending anticipate d/c home Current Inpatient Medications: Current Inpatient Medications Medications (Trade) Dose Ordered Sig/Lulu Route Start Time Stop Time Status Last Admin Dose Admin Miscellaneous Information (Pharmacist Discharge Med Rec Consult) 1 ea UD PRN N/A 05/27/17 18:45 06/26/17 18:44 Ondansetron HCl (Zofran Inj) 4 mg Q6H PRN IV 05/27/17 18:45 06/26/17 18:44 Albuterol (Ventolin Hfa Inhaler) 2 puffs QID PRN INH 05/27/17 19:30 06/26/17 19:29 Aspirin (Ecotrin Tab) 81 mg HS PO 05/27/17 21:00 06/26/17 20:59 05/27/17 20:56 81 MG Bupropion HCl (Wellbutrin-Sr Tab) 200 mg QAM PO 05/28/17 09:00 06/27/17 08:59 05/28/17 07:29 200 MG Flecainide Acetate (Tambocor Tab) 100 mg BID PO 05/27/17 21:00 06/26/17 20:59 05/28/17 20:05 100 MG Salmeterol Xinafoate/ Fluticasone (Advair Diskus 250/50 Inh) 1 puff BID INH 05/27/17 21:00 06/26/17 20:59 05/28/17 20:00 1 PUFF Levothyroxine Sodium (Synthroid Tab) 125 mcg DAILYBB PO 05/28/17 06:00 06/27/17 05:59 05/28/17 05:33 125 MCG Montelukast Sodium (Singulair Tab) 10 mg HS PO 05/27/17 21:00 06/26/17 20:59 05/28/17 20:04 10 MG Thiothixene (Navane Cap) 5 mg HS PO 05/27/17 21:00 06/26/17 20:59 05/27/17 20:57 5 MG Tiotropium [place] (Spiriva Handihaler Inhaler) 1 puff HS INH 05/27/17 21:00 06/26/17 20:59 05/28/17 20:00 1 PUFF Verapamil HCl (Calan-Sr Tab) 240 mg HS PO 05/27/17 21:00 06/26/17 20:59 05/28/17 20:03 240 MG Apixaban (Eliquis Tab) 5 mg BID PO 05/27/17 21:00 06/26/17 20:59 05/28/17 20:03 5 MG Pantoprazole Sodium (Protonix Tab) 40 mg BID PO 05/27/17 21:00 06/26/17 20:59 05/28/17 20:04 40 MG Pravastatin Sodium (Pravachol Tab) 80 mg HS PO 05/27/17 21:00 06/26/17 20:59 05/28/17 20:04 80 MG Gadobutrol (Gadavist) 8 mmol UD PRN IV 05/27/17 21:00 05/31/17 20:59 Clonidine HCl (Catapres Tab) 0.1 mg Q6H PRN PO 05/27/17 23:00 06/26/17 22:59 Liothyronine Sodium (Cytomel Tab) 5 mcg BID PO 10/7/17 21:00 06/27/17 20:59 05/28/17 20:02 5 MCG Acetaminophen (Tylenol Tab) 650 mg Q6H PRN PO 05/28/17 20:30 06/27/17 20:29
[2017-05-28] MEDS: THIOTHIXENE 5 MG CAP PO SCH (20:55)
[2017-05-28] MEDS: ASPIRIN 81 MG ECTAB PO SCH (20:55)
[2017-05-28] MEDS ORDERED: ASPIRIN 81 MG ECTAB PO STA (21:13)
[2017-05-29 03:45] VITALS: BP 117/75; PULSE 61; TEMP 36.2; O2SAT 94
[2017-05-29] MEDS: LEVOTHYROXINE 125 MCG TAB PO SCH (05:55)
[2017-05-29 07:56] LABS: BUN/CREATININE RATIO 12.1 (10-20); CALCIUM 9.1 mg/dl (8.5-10.1); CREATININE 0.85 mg/dl (0.60-1.20)
[2017-05-29 08:12] VITALS: BP 123/62; PULSE 65; TEMP 36.9; O2SAT 95
[2017-05-29 08:24] LABS: HEMATOCRIT 39.6 % (37-47); MEAN CELL VOLUME 72.1 fL (80-100); MEAN CORPUSCULAR HEMOGLOBIN 24.2 pg (25-34); MEAN CORPUSCULAR HGB CONC 33.6 g/dl (32-36); MEAN PLATELET VOLUME 10.2 fL (7.4-10.4); PLATELET COUNT 293 K/uL (130-400); RED BLOOD COUNT 5.49 M/uL (4.2-5.4); WHITE BLOOD COUNT 5.37 K/uL (4.8-10.8)
[2017-05-29 08:40] LABS: BASO % 0.4 %; BASO ABS # 0.02 K/uL (0-0.2); COMPLETE YES; EOS % 3.4 %; LYMPH % 44.7 %; MONO % 12.3 %; NEUT % 39.2 %
--- NOTE | 2017-05-29 08:45 | Progress Note ---
Medicine Progress Note Date & Time of Visit: May 29, 2017 at 08:45. Objective Last 8 Hrs Date Time Temp Pulse Resp B/P (MAP) Pulse Ox O2 Delivery O2 Flow Rate FiO2 05/29/17 08:12 36.9 65 16 123/62 (82) 95 Room Air 05/29/17 04:24 Room Air 05/29/17 03:45 36.2 61 20 117/75 (89) 94 BiPAP Physical Exam: General- oriented x 3, not in distress, speaks in sentences with no effort Head- atraumatic Eyes- EOMI, anicteric ENT- oropharynx clear Neck- supple, no JVD, no adenopathy Lungs- clear to auscultation bilaterally Heart- regular rhythm; no murmur, normal rate Abdomen- normal bowel sounds, soft, nontender Extremities- no pretibial edema, no calf tenderness Neuro- alert, oriented x 3;no gross focal neuro deficits except for mild decreased sensation left lower half of the face Skin- warm & dry Laboratory Results: Last 24 Hours Test 05/28/17 16:16 05/28/17 19:28 05/28/17 20:20 05/29/17 06:59 Bedside Glucose 127 mg/dl 94 mg/dl Sodium Level 132 mmol/L 134 mmol/L Potassium Level 4.4 mmol/L 4.0 mmol/L Chloride Level 99 mmol/L 101 mmol/L Carbon Dioxide Level 26 mmol/L 26 mmol/L Anion Gap 7.0 mmol/L 7.0 mmol/L Blood Urea Nitrogen 12 mg/dl 10 mg/dl Creatinine 0.88 mg/dl 0.85 mg/dl Est Creatinine Clear Calc Drug Dose 64.1 ml/min 66.4 ml/min Estimated GFR () 83.9 87.5 Estimated GFR (Non- 72.4 75.5 BUN/Creatinine Ratio 13.1 12.1 Random Glucose 100 mg/dl 100 mg/dl Calcium Level 9.4 mg/dl 9.1 mg/dl White Blood Count 5.37 K/uL Red Blood Count 5.49 M/uL Hemoglobin 13.3 g/dL Hematocrit 39.6 % Mean Corpuscular Volume 72.1 fL Mean Corpuscular Hemoglobin 24.2 pg Mean Corpuscular Hemoglobin Concent 33.6 g/dl Platelet Count 293 K/uL Mean Platelet Volume 10.2 fL Neutrophils (%) (Auto) 39.2 % Lymphocytes (%) (Auto) 44.7 % Monocytes (%) (Auto) 12.3 % Eosinophils (%) (Auto) 3.4 % Basophils (%) (Auto) 0.4 % Neutrophils # (Auto) 2.11 K/uL Lymphocytes # (Auto) 2.40 K/uL Monocytes # (Auto) 0.66 K/uL Eosinophils # (Auto) 0.18 K/uL Basophils # (Auto) 0.02 K/uL RDW Standard Deviation 45.3 fL RDW Coefficient of Variation 17.1 % Immature Granulocyte % (Auto) 0.0 % Immature Granulocyte # (Auto) 0.00 K/uL Assessment & Plan This is a 56yo F with a PMH of CAD s/p Stent, Chronic A fib on Eliquis, remote history of CVA, DM, HTN,, Schizoaffective disorder and other medical problems listed below who presents with stroke-like symptoms on the day of admission. LEFT FACIAL NUMBNESS, LEFT ARM AND LEG WEAKNESS -H/o CVA 20 years ago at age 33 -Has residual difficulty with fine motor movement of hands -CT head without any acute event -Work up: MRI brain without: IMPRESSION: 1. No acute intracranial abnormality. 2. Chronic severe subcortical white matter disease with focal old infarcts in the left basal ganglia and midbrain/king. 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 Differential considerations include subcortical arteriosclerotic encephalopathy or Susac syndrome. MRA head without, MRA neck combo: unrevealing Echo: -- Conclusions -- * Left ventricular systolic function is normal. * The left atrium is mildly dilated. * Injection of contrast documented no interatrial shunt. --- added additional Aspirin Eliquis and Statin continued monitor in Tele -- possible w/u for CADASIL as outpatient H/o insulin resistance: -Takes metformin at home A1 c5.9 -No formal diagnosis of DM II -Continue metformin -BG checks AC HS Hyponatremia: -Na of 125 on admission -Dry on exam; initiated 1 L NSS @ 75mL -Held spironolactone -Could be SIADH 2/2 antipsychotic side effects -Serum osm, urine osm: Low -- Na improved to 132 monitor A fib: -NSR on admission EKG -Continue Eliquis, flecainide HTN: improving -Continue verapamil -Held spironolactone for now COPD: -Stable -Continue home inhalers, nebs, singular -Does not require home O2 CAD (s/p stent): -No chest pain -EKG with NSR, some questionable ST depression in V4-V6 -Initial troponin negative -Repeat EKG in AM : stable RAKESH: -Stable -CPAP set-up ordered Hypothyroidism: -Continue home meds Schizoaffective disorder: -Continue thiothixene -Follows with out-patient psychiatrist Depression: -Continue bupropion DVT Ppx: On Eliquis Code status: FULL Dispo pending anticipate d/c home Current Inpatient Medications: Current Inpatient Medications Medications (Trade) Dose Ordered Sig/Lulu Route Start Time Stop Time Status Last Admin Dose Admin Miscellaneous Information (Pharmacist Discharge Med Rec Consult) 1 ea UD PRN N/A 05/27/17 18:45 06/26/17 18:44 Ondansetron HCl (Zofran Inj) 4 mg Q6H PRN IV 05/27/17 18:45 06/26/17 18:44 Albuterol (Ventolin Hfa Inhaler) 2 puffs QID PRN INH 05/27/17 19:30 06/26/17 19:29 Bupropion HCl (Wellbutrin-Sr Tab) 200 mg QAM PO 05/28/17 09:00 06/27/17 08:59 05/28/17 07:29 200 MG Flecainide Acetate (Tambocor Tab) 100 mg BID PO 05/27/17 21:00 06/26/17 20:59 05/28/17 20:05 100 MG Salmeterol Xinafoate/ Fluticasone (Advair Diskus 250/50 Inh) 1 puff BID INH 05/27/17 21:00 06/26/17 20:59 05/28/17 20:00 1 PUFF Levothyroxine Sodium (Synthroid Tab) 125 mcg DAILYBB PO 05/28/17 06:00 06/27/17 05:59 05/29/17 05:55 125 MCG Montelukast Sodium (Singulair Tab) 10 mg HS PO 05/27/17 21:00 06/26/17 20:59 05/28/17 20:04 10 MG Thiothixene (Navane Cap) 5 mg HS PO 05/27/17 21:00 06/26/17 20:59 05/28/17 20:55 5 MG Tiotropium [place] (Spiriva Handihaler Inhaler) 1 puff HS INH 05/27/17 21:00 06/26/17 20:59 05/28/17 20:00 1 PUFF Verapamil HCl (Calan-Sr Tab) 240 mg HS PO 05/27/17 21:00 06/26/17 20:59 05/28/17 20:03 240 MG Apixaban (Eliquis Tab) 5 mg BID PO 05/27/17 21:00 06/26/17 20:59 05/28/17 20:03 5 MG Pantoprazole Sodium (Protonix Tab) 40 mg BID PO 05/27/17 21:00 06/26/17 20:59 05/28/17 20:04 40 MG Pravastatin Sodium (Pravachol Tab) 80 mg HS PO 05/27/17 21:00 06/26/17 20:59 05/28/17 20:04 80 MG Gadobutrol (Gadavist) 8 mmol UD PRN IV 05/27/17 21:00 05/31/17 20:59 Clonidine HCl (Catapres Tab) 0.1 mg Q6H PRN PO 05/27/17 23:00 06/26/17 22:59 Liothyronine Sodium (Cytomel Tab) 5 mcg BID PO 05/28/17 21:00 06/27/17 20:59 05/28/17 20:02 5 MCG Acetaminophen (Tylenol Tab) 650 mg Q6H PRN PO 05/28/17 20:30 06/27/17 20:29 05/28/17 20:55 650 MG Aspirin (Ecotrin Tab) 162 mg HS PO 05/29/17 21:00 06/26/17 20:59
[2017-05-29] MEDS: APIXABAN 2.5 MG TAB PO SCH (09:28)
[2017-05-29] MEDS: FLECAINIDE ACETATE 100 MG TAB PO SCH (09:28)
[2017-05-29] MEDS: BuPROPion SR 100 MG TABCR PO SCH (09:28)
[2017-05-29] MEDS: FLUTICASONE/SALMETEROL 250/50 (ADVAIR) 14 PUFF/1 INHALER INH SCH (09:29)
[2017-05-29] MEDS: PANTOprazole SOD 40 MG TAB PO SCH (09:29)
[2017-05-29] MEDS: LIOTHYRONINE SODIUM 5 MCG PO SCH (09:29)
[2017-05-29 11:03] VITALS: BP 129/83; PULSE 69; TEMP 36.6; O2SAT 92
--- NOTE | 2017-05-29 12:49 | PROGRESS NOTE ---
DATE: 05/29/2017 SUBJECTIVE: I am seeing Mrs. Doran in followup of an episode of vaguely described dizziness, imbalance, lower lip not moving as it should be, and numbness in the left face, arm, and leg, which was discovered by the examining physician that the patient was not aware of. Symptoms lasted about 3 or 4 hours or more. MRI of the brain showed extensive white matter changes and left basal ganglia infarction. Radiologist raised the question whether or not the patient could have CADASIL and she has been evaluated at least previously with thought of having multiple sclerosis; although, she did not have a lumbar puncture. MRA of the head and neck was noncontributory. Her echo is pending. Her EKG, although she has a history of AFib, showed sinus rhythm. She briefly had some dizziness after I saw her yesterday. She has no ongoing symptoms today. Provocative head maneuvers are negative. She is awake and alert. She has some tardive of movement of the tongue. IMPRESSION: This patient's episode is difficult to characterize and localize. She spoke with some nonspecific dizziness and imbalance and on exam had some positive provocative head maneuvers and MRI showed no acute infarction. She also had some subjective sensory loss, not explained by any new imaging finding. I cannot find any data suggesting that higher doses of aspirin used with Eliquis would be safe or further therapeutic. I think if she had had a true new infarction, that might change things somewhat in terms of management. It would also raised the question whether Eliquis was an adequate drug for her depending on whether an infarct was large vessel. That having been said, no new infarct was noted. I would just continue risk factor modification at current dosing of aspirin 81 and Eliquis. She has had some more elevated blood pressures recently and they should be gradually brought under control. Her cholesterol and blood sugar all otherwise appear unremarkable. I did demonstrate labyrinthine exercises and explained the symptoms of labyrinthine vertigo and symptoms that would be more consistent with the stroke. I think her imaging does raise the question whether or not she could have CADASIL and I would like to see her in 2-3 weeks in the office and we will see if insurance will pay for that genetic testing. JUSTINE
[2017-05-29 15:11] VITALS: BP 146/80; PULSE 75; TEMP 36.4; O2SAT 95
[2017-05-29 16:00] VITALS: O2SAT 95
--- NOTE | 2017-05-29 17:50 | Progress Note ---
Medicine Progress Note Date & Time of Visit: May 29, 2017 at 17:39. Subjective seen resting in bed, comfortable states she feels fine overall facial numbness is almost resolved no numbness of the arm and leg denies other symptoms ambulating with no problems states she is ready and would like to go home today Objective Last 8 Hrs Date Time Temp Pulse Resp B/P (MAP) Pulse Ox O2 Delivery O2 Flow Rate FiO2 05/29/17 16:00 95 Room Air 05/29/17 15:11 36.4 75 16 146/80 (102) 95 Room Air 05/29/17 12:00 Room Air 05/29/17 11:03 36.6 69 16 129/83 (98) 92 Room Air Physical Exam: General- oriented x 3, not in distress, speaks in sentences with no effort Eyes- anicteric Neck- supple, no JVD Lungs- clear breath sounds bilaterally Heart- regular rhythm; no murmur, normal rate Abdomen- normal bowel sounds, soft, nontender Extremities- no pretibial edema, no calf tenderness Neuro- alert, oriented x 3;no gross focal neuro deficits except for mild decreased sensation left lower half of the face Skin- warm & dry Laboratory Results: Last 24 Hours Test 05/28/17 19:28 05/28/17 20:20 05/29/17 06:59 05/29/17 16:00 Sodium Level 132 mmol/L 134 mmol/L Potassium Level 4.4 mmol/L 4.0 mmol/L Chloride Level 99 mmol/L 101 mmol/L Carbon Dioxide Level 26 mmol/L 26 mmol/L Anion Gap 7.0 mmol/L 7.0 mmol/L Blood Urea Nitrogen 12 mg/dl 10 mg/dl Creatinine 0.88 mg/dl 0.85 mg/dl Est Creatinine Clear Calc Drug Dose 64.1 ml/min 66.4 ml/min Estimated GFR () 83.9 87.5 Estimated GFR (Non- 72.4 75.5 BUN/Creatinine Ratio 13.1 12.1 Random Glucose 100 mg/dl 100 mg/dl Calcium Level 9.4 mg/dl 9.1 mg/dl Bedside Glucose 94 mg/dl 94 mg/dl White Blood Count 5.37 K/uL Red Blood Count 5.49 M/uL Hemoglobin 13.3 g/dL Hematocrit 39.6 % Mean Corpuscular Volume 72.1 fL Mean Corpuscular Hemoglobin 24.2 pg Mean Corpuscular Hemoglobin Concent 33.6 g/dl Platelet Count 293 K/uL Mean Platelet Volume 10.2 fL Neutrophils (%) (Auto) 39.2 % Lymphocytes (%) (Auto) 44.7 % Monocytes (%) (Auto) 12.3 % Eosinophils (%) (Auto) 3.4 % Basophils (%) (Auto) 0.4 % Neutrophils # (Auto) 2.11 K/uL Lymphocytes # (Auto) 2.40 K/uL Monocytes # (Auto) 0.66 K/uL Eosinophils # (Auto) 0.18 K/uL Basophils # (Auto) 0.02 K/uL RDW Standard Deviation 45.3 fL RDW Coefficient of Variation 17.1 % Immature Granulocyte % (Auto) 0.0 % Immature Granulocyte # (Auto) 0.00 K/uL Assessment & Plan This is a 56yo F with a PMH of CAD s/p Stent, Chronic A fib on Eliquis, remote history of CVA, DM, HTN,, Schizoaffective disorder and other medical problems listed below who presents with stroke-like symptoms on the day of admission. LEFT FACIAL NUMBNESS, LEFT ARM AND LEG WEAKNESS -H/o CVA 20 years ago at age 33 -Has residual difficulty with fine motor movement of hands -CT head without any acute event -Work up: MRI brain without: IMPRESSION: 1. No acute intracranial abnormality. 2. Chronic severe subcortical white matter disease with focal old infarcts in the left basal ganglia and midbrain/king. 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 Differential considerations include subcortical arteriosclerotic encephalopathy or Susac syndrome. MRA head without, MRA neck combo: unrevealing Echo: -- Conclusions -- * Left ventricular systolic function is normal. * The left atrium is mildly dilated. * Injection of contrast documented no interatrial shunt. --- evaluated by Neurology C- Dr. Price no new infarcts seen on Brain MRI w/u for CADASIL as outpatient , ff up with Neurology in 2-3 weeks Eliquis and Statin continued -- ff up with PCP in 3-5 days H/o insulin resistance, Pre Diabetes -Takes metformin at home A1 c5.9 -Continue metformin - monitor A1c Hyponatremia -Na of 125 on admission -Dry on exam; initiated 1 L NSS @ 75mL -Held spironolactone -Serum osm, urine osm: Low -- Na improved to 134 advised to decrease Spironolactone 12.5mg po daily instead of BID monitor for leg edema, dyspnea and call PCP if present -- repeat Na on ff up with PCP and monitor closely A fib: -NSR on admission EKG -Continue Eliquis, flecainide HTN: admitted with elevated BP, likely from stress BP improved eventually with no additional medications -Continue verapamil - monitor BP closely COPD: -Stable -Continue home inhalers, nebs, singular CAD (s/p stent): -No chest pain -EKG with NSR, some questionable ST depression in V4-V6 -Initial troponin negative -Repeat EKG: stable RAKESH: -Stable - continue CPAP Hypothyroidism: -Continue home meds Schizoaffective disorder: -Continue thiothixene -Follows with out-patient psychiatrist Depression: -Continue bupropion DVT Ppx: On Eliquis Code status: FULL Dispo d/c home ff up with PCP in 3-5 days ff up with Neurologist Dr. Price in 2-3 weeks Current Inpatient Medications: Current Inpatient Medications Medications (Trade) Dose Ordered Sig/Lulu Route Start Time Stop Time Status Last Admin Dose Admin Miscellaneous Information (Pharmacist Discharge Med Rec Consult) 1 ea UD PRN N/A 05/27/17 18:45 06/26/17 18:44 Ondansetron HCl (Zofran Inj) 4 mg Q6H PRN IV 05/27/17 18:45 06/26/17 18:44 Albuterol (Ventolin Hfa Inhaler) 2 puffs QID PRN INH 05/27/17 19:30 06/26/17 19:29 Bupropion HCl (Wellbutrin-Sr Tab) 200 mg QAM PO 05/28/17 09:00 06/27/17 08:59 05/29/17 09:28 200 MG Flecainide Acetate (Tambocor Tab) 100 mg BID PO 05/27/17 21:00 06/26/17 20:59 05/29/17 09:28 100 MG Salmeterol Xinafoate/ Fluticasone (Advair Diskus 250/50 Inh) 1 puff BID INH 05/27/17 21:00 06/26/17 20:59 05/29/17 09:29 1 PUFF Levothyroxine Sodium (Synthroid Tab) 125 mcg DAILYBB PO 05/28/17 06:00 06/27/17 05:59 05/29/17 05:55 125 MCG Montelukast Sodium (Singulair Tab) 10 mg HS PO 05/27/17 21:00 06/26/17 20:59 05/28/17 20:04 10 MG Thiothixene (Navane Cap) 5 mg HS PO 05/27/17 21:00 06/26/17 20:59 05/28/17 20:55 5 MG Tiotropium [place] (Spiriva Handihaler Inhaler) 1 puff HS INH 05/27/17 21:00 06/26/17 20:59 05/28/17 20:00 1 PUFF Verapamil HCl (Calan-Sr Tab) 240 mg HS PO 05/27/17 21:00 06/26/17 20:59 05/28/17 20:03 240 MG Apixaban (Eliquis Tab) 5 mg BID PO 05/27/17 21:00 06/26/17 20:59 05/29/17 09:28 5 MG Pantoprazole Sodium (Protonix Tab) 40 mg BID PO 05/27/17 21:00 06/26/17 20:59 05/29/17 09:29 40 MG Pravastatin Sodium (Pravachol Tab) 80 mg HS PO 05/27/17 21:00 06/26/17 20:59 05/28/17 20:04 80 MG Gadobutrol (Gadavist) 8 mmol UD PRN IV 05/27/17 21:00 05/31/17 20:59 Clonidine HCl (Catapres Tab) 0.1 mg Q6H PRN PO 05/27/17 23:00 06/26/17 22:59 Liothyronine Sodium (Cytomel Tab) 5 mcg BID PO 05/28/17 21:00 06/27/17 20:59 05/29/17 09:29 5 MCG Acetaminophen (Tylenol Tab) 650 mg Q6H PRN PO 05/28/17 20:30 06/27/17 20:29 05/28/17 20:55 650 MG Aspirin (Ecotrin Tab) 81 mg HS PO 05/29/17 21:00 06/28/17 20:59
[2017-05-29] MEDS ORDERED: SPIR25TA PO (17:53)
--- NOTE | 2017-05-29 17:59 | Discharge Instructions ---
Discharge Instructions Date of Service May 29, 2017. Admission Reason for Admission: Difficulty Speaking, Imbalance Discharge Discharge Diagnosis / Problem: LEFT FACE AND EXTREMITY NUMBNESS Discharge Goals Goal(s): Diagnostic testing, Therapeutic intervention Activity Recommendations Activity Limitations: as noted below (NO HEAVY EXERTION UNTIL REEVALUATED BY PRIMARY CARE PHYSICIAN) . Instructions / Follow-Up Instructions / Follow-Up PLEASE REVIEW YOUR NEW MEDICATION LIST AND FOLLOW INSTRUCTIONS CAREFULLY. CALL YOUR PRIMARY CARE PHYSICIAN OR RETURN TO ER IMMEDIATELY IF WITH INCREASING LEG SWELLING, SHORTNESS OF BREATH. Who to Call and When: Medical Emergencies: Call 911 immediately if you experience any of the following warning signs and symptoms of Stroke: * Sudden numbness or weakness of the face, arm or leg, especially on one side of the body * Sudden confusion, trouble speaking or understanding * Sudden trouble seeing in one or both eyes * Sudden trouble walking, dizziness, loss of balance or coordination * Sudden severe headache with no cause Do not delay calling 911 if you experience any warning signs or symptoms of a stroke. Delay in seeking medical attention may affect what treatments can be given to you. FOLLOW UP WITH YOUR PRIMARY CARE PHYSICIAN IN 3-5 DAYS. THE CLINIC WILL CALL YOU FOR THE APPOINTMENT SCHEDULE. FOLLOW UP WITH NEUROLOGIST DR. NUÑEZ IN 2-3 WEEKS. . Current Hospital Diet Patient's current hospital diet: Diabetes Type 2 Diet, AHA Diet (Heart Healthy) Discharge Diet Recommended Diet: AHA Diet (Heart Healthy), Diabetes Type 2 Diet Procedures Procedures Performed: BRAIN MRI, HEAD AND NECK MRA, ECHOCARDIOGRAM Pending Studies Studies pending at discharge: yes List of pending studies: BLOOD WORK C/O PRIMARY CARE PHYSICINA, NEUROLOGY FOLLOW UP Laboratory Results Hemoglobin A1c Test 05/27/17 15:18 Range/Units Estimated Average Glucose 123 mg/dl Hemoglobin A1c 5.9 H 4.5-5.6 % Lipid Panel Test 05/28/17 03:31 Range/Units Triglycerides Level 61 0-150 mg/dl Cholesterol Level 120 0-200 mg/dl HDL Cholesterol 57 mg/dl Cholesterol/HDL Ratio 2.1 LDL Cholesterol, Calculated 51 mg/dl Medical Emergencies . Who to Call and When: Medical Emergencies: If at any time you feel your situation is an emergency, please call 911 immediately. . Non-Emergent Contact Non-Emergency issues call your: Primary Care Provider Call Non-Emergent contact if: you have a fever, you have any medication questions . . "Provider Documentation" section prepared by Reji Dos Santos. . VTE Core Measure Inpt VTE Proph given/why not?: Other Anticoagulation
--- NOTE | 2017-05-29 18:01 | Discharge Summary ---
Discharge Summary Date of Service May 29, 2017. Discharge Summary Admission Date: May 27, 2017 at 18:01 Discharge Date: May 29, 2017 Discharge Disposition: Home Principal Diagnosis: LEFT FACIAL NUMBNESS, LEFT ARM AND LEG WEAKNESS Secondary Diagnoses/Problems: Please refer to hospital course below. Procedures: BRAIN WITHOUT CONTRAST CLINICAL HISTORY: 56 years-old Female presenting with Stroke, dizzy for 4 hours, vision nolan fluid moving around in the brain and that brain is shadowing down, difficulty walking, history of stroke at the age of 35. TECHNIQUE: Multisequence, multiplanar MR imaging of the brain was performed without the use of intravenous contrast. IV contrast: None. COMPARISON: Correlation made to brain MR from 2013. FINDINGS: Ventricles and sulci normal in size. Periventricular and subcortical white matter T2/FLAIR hyperintensity, nonspecific but likely indicative of chronic small vessel ischemic change. These abnormalities are characterized by confluent white matter hyperintensity. Notably, the anterior temporal lobes are prominently involved. The severity and extent of disease is unchanged from prior. Extensive chronic infarct in the left basal ganglia unchanged. Additional foci of hyperintensity in the midbrain and king. No mass effect or midline shift. No restricted diffusion to suggest acute ischemia. No hemorrhage. No extra-axial fluid collection. T2 skull base flow voids preserved. Bone marrow signal intensity within the calvarium within normal limits. [place] lenses are absent from the globes bilaterally. IMPRESSION: 1. No acute intracranial abnormality. 2. Chronic severe subcortical white matter disease with focal old infarcts in the left basal ganglia and midbrain/king. 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 Differential considerations include subcortical arteriosclerotic encephalopathy or Susac syndrome. Electronically signed by: Rafael Nelson M.D. 05/27/2017 9:31 PM MRA HEAD WITHOUT CONTRAST CLINICAL HISTORY: 56 years-old Female presenting with stroke, dizzy for 4 hours, difficulty ambulating, history of stroke at age 35. TECHNIQUE: MR angiography of the head was performed without the use of intravenous contrast using 3-D [id number] technique. 3-D volumetric and/or maximum intensity projection (MIP) images were subsequently reconstructed for review. IV contrast: None.. COMPARISON: None. FINDINGS: Anterior circulation demonstrates patent intracranial portions of the internal carotid arteries. Patent anterior and middle cerebral arteries and patent anterior commuting artery. Posterior circulation demonstrates codominant vertebral arteries with a patent basilar artery. Bilateral superior cerebellar and posterior cerebral arteries patent. Bilateral posterior communicating arteries patent. No evidence of aneurysm, focal vessel occlusion, or significant stenosis. IMPRESSION: 1. No significant stenosis, aneurysm, or focal vessel occlusion. ECHO: * -- Conclusions -- * Left ventricular systolic function is normal. * The left atrium is mildly dilated. * Injection of contrast documented no interatrial shunt. Consultations: Neurologist Dr. Price Pending Studies/Follow-Up: Please refer to hospital course below. Medication Reconciliation Changed Medications: Spironolactone (Aldactone) 25 Mg Tab 12.5 MG PO DAILY for 30 Days (Changed from: BID) Continued Medications: Albuterol Hfa (Ventolin Hfa) 200 Puffs/20899 Mcg Aers 2 PUFFS INH QID PRN for SOB/Wheezing Apixaban (Eliquis) 5 Mg Tab 5 MG PO BID Aspirin (Aspirin Ec) 81 Mg Tab 81 MG PO HS Bupropion Hcl (Wellbutrin Sr) 200 Mg Tab 200 MG PO QAM Flecainide Acetate (Flecainide Acetate) 100 Mg Tab 100 MG PO BID Fluticasone Prop/Salmeterol (Advair Diskus 250/50 60 Dose) 1 Ea Aerp 1 PUFF INH BID Levothyroxine Sodium (Synthroid) 125 Mcg Tab 125 MCG PO HS Liothyronine Sodium (Liothyronine Sodium) 5 Mcg Tab 5 MCG PO BID Metformin Hcl (Glucophage) 1,000 Mg Tab 1000 MG PO BID Montelukast Sod (Montelukast Sodium) 10 Mg Tab 10 MG PO HS Multivitamin (Multivitamin) Tab 1 TAB PO QAM, TAB Omeprazole (Prilosec) 20 Mg Capcr 20 MG PO BID Pravastatin Sodium (Pravastatin Sodium) 80 Mg Tab 80 MG PO HS Thiothixene (Navane) 5 Mg Cap 5 MG PO HS Tiotropium [place] (Spiriva Handihaler) 30 Puff/540 Mcg Aerp 1 PUFF INH HS Verapamil HCl (Verapamil HCl ER) 240 Mg Tabcr 240 MG PO HS Admission Information HPI (per Admitting provider): This is a 56yo F with a PMH of HTN, DM II, remote history of CVA, chronic A Fib (on Eliquis), CAD (s/p stent), schizoaffective disorder and other medical problems listed below who presents with stroke-like symptoms around 2 this afternoon. Patient was at home watching TV when she suddenly felt like "something let up" in her head. She further clarified this to mean that she felt a zimmerman of fluid to her head. When she stood up to get her son, she felt imbalanced while walking and had to hold onto the wall. When discussing these events with her son, she states that it was difficult to move her bottom lip. Also endorses a L-sided headache. Denies any facial droop, difficulty with word finding, motor weakness, etc. Son called EMS and patient was evaluated in the ER. By this point, all previous symptoms had resolved and patient started to experience L sided numbness including her L upper cheek, forearm and chance. Had a stroke approximately 20 years ago and has residual difficulty with fine motor skills such as chopping and dicing vegetables. Unable to find any imaging on chart review. Patient has been taking all medications regularly, including a Eliquis, baby aspirin and a statin. Admits to eating a high sodium diet lately and home BP readings have subsequently been higher than usual, with an average SBP of 175- 180. Denies any current lightheadedness, headache, visual changes, difficulty with speech, CP, SOB, weakness in any extremity, difficult with ambulation. Continues to endorse a fuzzy, numb feeling on left cheek. Numbness of L forearm and L lower leg are resolving. Physical Exam (per Admitting): General Appearance: WD/WN, no apparent distress, + pertinent finding (Some involuntary movement of mouth and tongue) Head: normocephalic, atraumatic Eyes: normal inspection, PERRL, EOMI, sclerae normal ENT: hearing grossly normal Neck: supple, no adenopathy, thyroid normal, trachea midline Respiratory/Chest: chest non-tender, no respiratory distress, no accessory muscle use, + wheezing (Scattered expiratory wheezes) Cardiovascular: regular rate, rhythm, no murmur, normal peripheral pulses Abdomen/GI: normal bowel sounds, non tender, soft, no organomegaly Back: normal inspection Extremities/Musculoskelatal: normal inspection, no calf tenderness, normal capillary refill, no pedal edema Neurologic/Psych: driveway sealer II-XII nml as tested (Delayed response to light touch on L cheek. Otherwise CN exam wnl. FAROM, 5/5 ERMIAS. Gait normal. Negative pronator drift.), no motor/sensory deficits, alert, normal mood/affect, oriented x 3 Skin: normal color, warm/dry, no rash Hospital Course This is a 56yo F with a PMH of CAD s/p Stent, Chronic A fib on Eliquis, remote history of CVA, DM, HTN,, Schizoaffective disorder and other medical problems listed below who presents with stroke-like symptoms on the day of admission. LEFT FACIAL NUMBNESS, LEFT ARM AND LEG WEAKNESS -H/o CVA 20 years ago at age 33 -CT head without any acute event -Work up: MRI brain without: IMPRESSION: 1. No acute intracranial abnormality. 2. Chronic severe subcortical white matter disease with focal old infarcts in the left basal ganglia and midbrain/king. 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 Differential considerations include subcortical arteriosclerotic encephalopathy or Susac syndrome. MRA head without, MRA neck combo: unrevealing Echo: -- Conclusions -- * Left ventricular systolic function is normal. * The left atrium is mildly dilated. * Injection of contrast documented no interatrial shunt. --- evaluated by Neurology SV- Dr. Price no new infarcts seen on Brain MRI w/u for CADASIL (cerebral autosomal dominant arteriopathy with subcortical infarcts and leukoencephalopathy) as outpatient , ff up with Neurology in 2-3 weeks Eliquis and Statin continued -- ff up with PCP in 3-5 days H/o insulin resistance, Pre Diabetes -Takes metformin at home A1 c5.9 -Continue metformin - monitor A1c Hyponatremia -Na of 125 on admission -Dry on exam; initiated 1 L NSS @ 75mL -Held spironolactone -Serum osm, urine osm: Low -- Na improved to 134 advised to decrease Spironolactone 12.5mg po daily instead of BID monitor for leg edema, dyspnea and call PCP if present -- repeat Na on ff up with PCP and monitor closely A fib: -NSR on admission EKG -Continue Eliquis, flecainide HTN: admitted with elevated BP, likely from stress BP improved eventually with no additional medications -Continue verapamil - monitor BP closely COPD: -Stable -Continue home inhalers, nebs, singular CAD (s/p stent): -No chest pain -EKG with NSR, some questionable ST depression in V4-V6 -Initial troponin negative -Repeat EKG: stable RAKESH: -Stable - continue CPAP Hypothyroidism: -Continue home meds Schizoaffective disorder: -Continue thiothixene -Follows with out-patient psychiatrist Depression: -Continue bupropion Dispo d/c home ff up with PCP in 3-5 days ff up with Neurologist Dr. Price in 2-3 weeks Total time spent on discharge = 35 minutes This includes examination of the patient, discharge planning, medication reconciliation, and communication with other providers. Discharge Instructions Discharge Instructions Date of Service May 29, 2017. Admission Reason for Admission: Difficulty Speaking, Imbalance Discharge Discharge Diagnosis / Problem: LEFT FACE AND EXTREMITY NUMBNESS Discharge Goals Goal(s): Diagnostic testing, Therapeutic intervention Activity Recommendations Activity Limitations: as noted below (NO HEAVY EXERTION UNTIL REEVALUATED BY PRIMARY CARE PHYSICIAN) . Instructions / Follow-Up Instructions / Follow-Up PLEASE REVIEW YOUR NEW MEDICATION LIST AND FOLLOW INSTRUCTIONS CAREFULLY. CALL YOUR PRIMARY CARE PHYSICIAN OR RETURN TO ER IMMEDIATELY IF WITH INCREASING LEG SWELLING, SHORTNESS OF BREATH. Who to Call and When: Medical Emergencies: Call 911 immediately if you experience any of the following warning signs and symptoms of Stroke: * Sudden numbness or weakness of the face, arm or leg, especially on one side of the body * Sudden confusion, trouble speaking or understanding * Sudden trouble seeing in one or both eyes * Sudden trouble walking, dizziness, loss of balance or coordination * Sudden severe headache with no cause Do not delay calling 911 if you experience any warning signs or symptoms of a stroke. Delay in seeking medical attention may affect what treatments can be given to you. FOLLOW UP WITH YOUR PRIMARY CARE PHYSICIAN IN 3-5 DAYS. THE CLINIC WILL CALL YOU FOR THE APPOINTMENT SCHEDULE. FOLLOW UP WITH NEUROLOGIST DR. PRICE IN 2-3 WEEKS. . Current Hospital Diet Patient's current hospital diet: Diabetes Type 2 Diet, AHA Diet (Heart Healthy) Discharge Diet Recommended Diet: AHA Diet (Heart Healthy), Diabetes Type 2 Diet Procedures Procedures Performed: BRAIN MRI, HEAD AND NECK MRA, ECHOCARDIOGRAM Pending Studies Studies pending at discharge: yes List of pending studies: BLOOD WORK C/O PRIMARY CARE PHYSICINA, NEUROLOGY FOLLOW UP
[2017-05-29 18:04] VITALS: BP 146/80; PULSE 75; TEMP 36.4; O2SAT 95
[2017-05-29] MEDS ORDERED: ASPIRIN 81 MG ECTAB PO SCH ×2 (21:00)
== END 2017-05-29 18:17 | disposition home or self-care (01) | DRG 92 ==
LOC: EDBD 15:39 → C.EDA 15:40 → C.2T 18:01 → ENRESERV 18:51
PROVIDERS: ADMIT Internal Medicine; ATTEND Internal Medicine
DX: R20.0 Anesthesia of skin (principal); E87.1 Hypo-osmolality and hyponatremia; I25.2 Old myocardial infarction; I10 Essential (primary) hypertension; I48.2 Chronic atrial fibrillation; F25.9 Schizoaffective disorder, unspecified; R73.03 Prediabetes; G47.33 Obstructive sleep apnea (adult) (pediatric); J44.9 Chronic obstructive pulmonary disease, unspecified; E03.9 Hypothyroidism, unspecified; I25.10 Atherosclerotic heart disease of native coronary artery without angina pectoris; R53.1 Weakness; F32.9 Major depressive disorder, single episode, unspecified; Z82.3 Family history of stroke; Z80.3 Family history of malignant neoplasm of breast; Z80.8 Family history of malignant neoplasm of other organs or systems; Z82.49 Family history of ischemic heart disease and other diseases of the circulatory system; Z86.73 Personal history of transient ischemic attack (TIA), and cerebral infarction without residual deficits; Z79.01 Long term (current) use of anticoagulants; Z82.0 Family history of epilepsy and other diseases of the nervous system; Z79.82 Long term (current) use of aspirin; Z95.5 Presence of coronary angioplasty implant and graft; Z87.891 Personal history of nicotine dependence

== ENCOUNTER 2019-11-06 16:57 | Inpatient (IN) ==
[2019-11-06] MEDS ORDERED: SODIUM CHLORIDE 0.9% 500 ML IV SCH (17:30)
--- NOTE | 2019-11-06 17:43 | XRay Report ---
XR chest 1V portable CLINICAL HISTORY: weakness COMPARISON STUDY: 10/31/2019 FINDINGS: The cardiac and mediastinal contours remain stable. There is no acute parenchymal consolida tion. There is no failure. There are no pleural effusions. Underlying emphysema is suspected.[ IMPRESSION: No active disease in the chest. ACT 112: Negative or not required by law. Electronically signed by: Eric Agarwal M.D. 11/06/2019 5:42 PM
--- NOTE | 2019-11-06 18:01 | Emergency Department Note ---
History of Present Illness General Chief complaint: Abnormal Labs/Diagnostic Testing Stated complaint: LOW SODIUM, LOW CHLORIDE Time Seen by Provider: 11/06/19 17:14 History of Present Illness Maximum Pain Intensity: 8 The patient is a 59-year-old female who was recently diagnosed with a recent diagnosis of lung cancer who presented to the emergency department for an evaluation of generalized weakness as well as abnormal laboratory studies. The patient has a history of atrial fibrillation. She does also have a history of COPD with emphysema. The patient is currently being evaluated for a new diagnosis of lung cancer. She does have a tobacco history in the past but she quit approximately 10 years ago. The patient is going to have a port placed very soon. She states that she has had biopsies with positive lymph nodes. He she had outpatient laboratory studies today which revealed a very low sodium and she was sent to the emergency department for further evaluation. At this time the patient denies having any chest pain or shortness of breath. She does wear oxygen as an outpatient. She does complain of cough which is not productive. She states that she has been compliant with her blood thinners. She denies having any fevers. She denies having any leg swelling greater than baseline. Home Medications Home Medications Medication Instructions Recorded Confirmed Type apixaban 5 mg tablet 5 mg PO BID #180 tab 03/14/19 11/06/19 History flecainide 100 mg tablet 100 mg PO BID #180 tab 03/14/19 11/06/19 History ipratropium 0.5 mg-albuterol 3 mg 3 ml INHALATION Q4H PRN ml 03/14/19 11/06/19 History (2.5 mg base)/3 mL nebulization soln levothyroxine 100 mcg tablet 100 mcg PO DAILYBB tab 03/14/19 11/06/19 History liothyronine 5 mcg tablet 5 mcg PO BID tab 03/14/19 11/06/19 History lisinopril 10 mg tablet 10 mg PO HS #90 tab 03/14/19 11/06/19 History metformin 500 mg tablet 500 mg PO BID tab 03/14/19 11/06/19 History montelukast 10 mg tablet 10 mg PO HS tab 03/14/19 11/06/19 History omeprazole 20 mg capsule,delayed 20 mg PO BID cap 03/14/19 11/06/19 History release pravastatin 40 mg tablet 80 mg PO HS #180 tab 03/14/19 11/06/19 History thiothixene 5 mg capsule 5 mg PO HS cap 03/14/19 11/06/19 History albuterol sulfate 90 mcg/actuation 1 puffs INH .COMPLEX PRN 03/27/19 11/06/19 History aerosol inhaler bupropion HCl 200 mg tablet,12 hr 200 mg PO QAM ea 03/27/19 11/06/19 History sustained-release fluticasone 250 mcg-salmeterol 50 1 puffs INH QDD ea 03/27/19 11/06/19 History mcg/dose blistr powdr for inhalation aspirin 81 mg PO HS 10/31/19 11/06/19 History tiotropium bromide [Spiriva with 18 mcg INHALATION QDD 10/31/19 11/06/19 History HandiHaler] ondansetron HCl 8 mg PO UD PRN 11/06/19 11/06/19 History prochlorperazine maleate 10 mg PO UD PRN 11/06/19 11/06/19 History [Compazine] verapamil 240 mg PO QAM 11/06/19 11/06/19 History Allergies Allergy/AdvReac Type Severity Reaction Status Date / Time Beta-Blockers Allergy Severe Confusion; Verified 11/06/19 19:17 (Beta-Adrenergic Bloc Diarrhea; Rash furosemide [From Lasix] Allergy Severe "LUNGS Verified 11/06/19 19:17 CLOSE UP" tetracycline Allergy Intermediate RASH; Verified 11/06/19 19:17 "MYCINS" ALLERGY acetaminophen Allergy Mild GI UPSET Verified 11/06/19 19:17 clindamycin Allergy Unknown "MYCINS" Verified 11/06/19 19:17 ALLERGY diltiazem Allergy Unknown ? Verified 11/06/19 19:17 Sulfa (Sulfonamide Allergy Unknown Unknown Unverified 11/06/19 19:17 Antibiotics) sumatriptan Allergy Unknown "TRIPTANS" Verified 11/06/19 19:17 ALLERGY codeine AdvReac Severe SYNCOPE Verified 11/06/19 19:17 PER PATIENT oxycodone AdvReac Mild GI UPSET Verified 11/06/19 19:17 METAL JEWELRY AdvReac Mild ITCHINESS Uncoded 10/31/19 10:48 "WITH CHEAP JEWELRY" Past Med/Surg History Medical History (Updated 11/06/19 @ 19:39 by Zully Thompson PA-C) Abnormal mammography CAD (coronary artery disease) Chronic cerebral ischemia Common migraine without aura Contusion of left hip (Resolved) COPD (chronic obstructive pulmonary disease) On oxygen Depression Diaphragmatic hernia Diverticulosis of colon Dizziness DS (disseminated sclerosis) Dyslipidemia Dysmetabolic syndrome X Eczema GERD (gastroesophageal reflux disease) Hearing loss Hyponatremia Hypothyroidism Memory loss Migraines Neuropathy Non-occlusive coronary artery disease RAKESH on CPAP Osteoporosis, unspecified Paroxysmal A-fib Pre-diabetes Schizoaffective disorder Unspecified osteomyelitis, ankle and foot Surgical History (Updated 11/06/19 @ 19:37 by Zully Thompson PA-C) History of bunionectomy History of colonoscopy History of coronary angioplasty Stent by Dr. Bryan History of tubal ligation (Resolved) History of wisdom tooth extraction (Resolved) Family History (Updated 11/06/19 @ 19:12 by Zully Thompson PA-C) Father Cancer Hypertension Mother Breast cancer Diabetes Hypertension Social History (Updated 11/06/19 @ 19:13 by Zully Thompson PA-C) Preferred Language: Kazakh Communication Ability: Effective Glove Maker Required: No Beliefs That Will Affect Care: None marital status: Single Current Living Situation: Family Current Living Situation Comment: Son and grandchild Feels Safe at Home: Yes Smoking Status: Former smoker Hx Alcohol Use: Yes Alcohol Intake Frequency: Rarely Hx Substance Use: No Review of Systems See HPI for pertinent positives & negatives. and A total of 10 systems reviewed and were otherwise negative Physical Exam Vital Signs Vital Signs - 24 hr 11/06/19 17:10 11/06/19 18:12 Temperature 36.5 C Temperature Source Oral Pulse Rate 71 Respiratory Rate 16 Respiratory Effort / Characteristics Non-Labored Spontaneous Respiratory Depth Normal Respiratory Pattern Regular Blood Pressure 180/82 H Blood Pressure Mean 114 Blood Pressure Position Sitting Pulse Oximetry 99 Oxygen Delivery Method Nasal Cannula Nasal Cannula Oxygen Flow Rate 2 2 Sepsis Recent Fever Within 48 Hours No Sepsis New/Unexplained Change in Mental Status No Sepsis Action Taken by Nursing No Action Required GENERAL: The patient is awake and alert. She is somewhat anxious appearing but comfortable. EYES: The conjunctivae are clear. The pupils are round and reactive. EARS, NOSE, MOUTH AND THROAT: The nose is without any evidence of any deformity. Mucous membranes are dry. NECK: The neck is nontender and supple. RESPIRATORY: Shallow respirations were noted. There were diminished breath sounds noted throughout. Scattered wheezing was noted. There was mild conver sational dyspnea. CARDIOVASCULAR: Regular rate and rhythm noted there no murmurs rubs or gallops normal S1 normal S2. GASTROINTESTINAL: The abdomen is soft. Abdomen is nontender. MUSCULOSKELETAL/EXTREMITIES: There is no evidence of gross deformity full range of motion is noted in the hips and shoulders. SKIN: There is no obvious evidence of any rash. Pedal edema was noted bilaterally. NEUROLOGIC: Patient is awake alert and oriented x3 strength is symmetric patellar reflexes are 2+ bilaterally Course Course 1749: I discussed this case with Zully who was covering for the on-call [facility] hospitalist group. They have agreed to evaluate the patient in the emergency department for further management and disposition. Administered Medications Apixaban (Eliquis) 5 mg PO BID [facility] Stop: 12/06/19 20:59 Last Admin: 11/08/19 08:37 Dose: 5 mg Documented by: [id number] Admin: 11/07/19 20:46 Dose: 5 mg Documented by: [id number] Admin: 11/07/19 08:31 Dose: 5 mg Documented by: [id number] Admin: 11/06/19 21:17 Dose: 5 mg Documented by: [id number] Aspirin (Ecotrin Ectab) 81 mg PO HS [facility] Stop: 12/06/19 20:59 Last Admin: 11/07/19 20:48 Dose: 81 mg Documented by: [id number] Admin: 11/06/19 21:17 Dose: 81 mg Documented by: [id number] Bupropion HCl (Wellbutrin-Sr) 200 mg PO QAM [facility] Stop: 12/07/19 08:59 Last Admin: 11/08/19 08:36 Dose: 200 mg Documented by: [id number] Admin: 11/07/19 08:30 Dose: 200 mg Documented by: [id number] Flecainide Acetate (Tambocor) 100 mg PO BID [facility] Stop: 12/06/19 20:59 Last Admin: 11/08/19 08:37 Dose: 100 mg Documented by: [id number] Admin: 11/07/19 20:47 Dose: 100 mg Documented by: [id number] Admin: 11/07/19 08:29 Dose: 100 mg Documented by: [id number] Admin: 11/06/19 21:19 Dose: 100 mg Documented by: [id number] Fluticasone/Vilanterol (Breo Ellipta 100/25 Mcg Inh) 1 puffs INH QDD [facility]; Protocol Stop: 12/07/19 16:29 Last Admin: 11/07/19 16:46 Dose: 1 puffs Documented by: [id number] Insulin Aspart (Novolog Flexpen) 0 units SC ACHS [facility] Stop: 12/07/19 01:59 Last Admin: 11/08/19 08:39 Dose: Not Given Documented by: [id number] Cosigned by: [id number] Admin: 11/07/19 21:25 Dose: Not Given Documented by: [id number] Cosigned by: [id number] Admin: 11/07/19 17:38 Dose: Not Given Documented by: [id number] Cosigned by: [id number] Admin: 11/07/19 12:10 Dose: Not Given Documented by: [id number] Cosigned by: [id number] Admin: 11/07/19 08:58 Dose: Not Given Documented by: [id number] Cosigned by: [id number] Admin: 11/07/19 02:20 Dose: Not Given Documented by: [id number] Cosigned by: [id number] Levothyroxine Sodium (Synthroid) 100 mcg PO DAILYBB [facility] Stop: 12/07/19 06:29 Last Admin: 11/08/19 06:03 Dose: 100 mcg Documented by: [id number] Admin: 11/07/19 06:02 Dose: 100 mcg Documented by: [id number] Lidocaine (Lidoderm 5%) 1 patch TD QAM [facility] Stop: 12/07/19 23:49 Last Admin: 11/08/19 08:37 Dose: 1 patch Documented by: [id number] Admin: 11/08/19 00:15 Dose: 1 patch Documented by: [id number] Liothyronine Sodium (Cytomel) 5 mcg PO BID [facility] Stop: 12/06/19 20:59 Last Admin: 11/08/19 08:36 Dose: 5 mcg Documented by: [id number] Admin: 11/07/19 20:49 Dose: 5 mcg Documented by: [id number] Admin: 11/07/19 08:30 Dose: 5 mcg Documented by: [id number] Admin: 11/06/19 21:17 Dose: 5 mcg Documented by: [id number] Lisinopril (Zestril) 20 mg PO BID [facility] Stop: 12/08/19 03:14 Last Admin: 11/08/19 04:23 Dose: 20 mg Documented by: [id number] Montelukast Sodium (Singulair) 10 mg PO [facility] Stop: 12/06/19 20:59 Last Admin: 11/07/19 20:46 Dose: 10 mg Documented by: [id number] Admin: 11/06/19 21:19 Dose: 10 mg Documented by: [id number] Pantoprazole Sodium (Protonix) 40 mg PO BID [facility] Stop: 12/06/19 20:59 Last Admin: 11/08/19 08:36 Dose: 40 mg Documented by: [id number] Admin: 11/07/19 20:48 Dose: 40 mg Documented by: [id number] Admin: 11/07/19 08:30 Dose: 40 mg Documented by: [id number] Admin: 11/06/19 21:18 Dose: 40 mg Documented by: [id number] Polyethylene Glycol (Miralax Powder Packet) 17 gm PO DAILY PRN PRN Reason: Constipation Stop: 12/06/19 19:58 Last Admin: 11/08/19 06:36 Dose: 17 gm Documented by: [id number] Admin: 11/07/19 08:41 Dose: 17 gm Documented by: [id number] Pravastatin Sodium (Pravachol) 80 mg PO [facility] Stop: 12/06/19 20:59 Last Admin: 11/07/19 20:47 Dose: 80 mg Documented by: [id number] Admin: 11/06/19 21:19 Dose: 80 mg Documented by: [id number] Senna/Docusate Sodium (Senokot S) 1 tab PO QAM [facility] Stop: 12/07/19 17:44 Last Admin: 11/08/19 08:36 Dose: 1 tab Documented by: [id number] Admin: 11/07/19 19:07 Dose: 1 tab Documented by: [id number] Thiothixene (Navane) 5 mg PO [facility] Stop: 12/06/19 20:59 Last Admin: 11/07/19 20:47 Dose: 5 mg Documented by: [id number] Admin: 11/06/19 21:22 Dose: 5 mg Documented by: [id number] Umeclidinium [place] (Incruse Ellipta) 1 puffs INH QDD [facility]; Protocol Stop: 12/07/19 16:29 Last Admin: 11/07/19 16:46 Dose: 1 puffs Documented by: [id number] Verapamil HCl (Calan Sr) 240 mg PO QAM [facility] Stop: 12/07/19 08:59 Last Admin: 11/08/19 08:39 Dose: 240 mg Documented by: [id number] Admin: 11/07/19 08:29 Dose: 240 mg Documented by: [id number] Discontinued Medications Sodium Chloride (Nss) 500 mls @ 999 mls/hr IV .Q31M [facility] Stop: 11/06/19 18:00 Last Admin: 11/06/19 18:43 Dose: Not Given Documented by: [id number] Lisinopril (Zestril) 10 mg PO HS [facility] Stop: 12/06/19 20:59 Last Admin: 11/07/19 20:48 Dose: 10 mg Documented by: [id number] Admin: 11/06/19 21:20 Dose: 10 mg Documented by: [id number] Lisinopril (Zestril) 10 mg PO NOW STA Stop: 11/07/19 23:48 Last Admin: 11/08/19 00:16 Dose: 10 mg Documented by: [id number] Medical Decision Making Differential Diagnosis Etiologies such as metabolic, infection, hypo/hyperglycemia, electrolyte abnormalities, cardiac sources, intracerebral event, toxicologic, neurologic, as well as others were entertained. Medical Records Attestation: I reviewed the patient's medical records. Home Medications Current Medication List: was personally reviewed by me Laboratory Data Attestation: I reviewed the patient's lab results. Result diagrams: 11/08/19 05:59 11/08/19 05:59 Lab Results 11/06/19 11/06/19 11/06/19 Range/Units 18:08 18:08 18:08 WBC 5.86 (4.8-10.8) K/uL RBC 4.85 (4.2-5.4) M/uL Hgb 11.1 L (12.0-16.0) g/dL Hct 33.5 L (37-47) % MCV 69.1 L (80-100) fL MCH 22.9 L (25-34) pg MCHC 33.1 (32-36) g/dL RDW Std Deviation 41.9 (36.4-46.3) fL RDW Coeff of Chepe 16.7 H (11.5-14.5) % Plt Count 288 (130-400) K/uL MPV 8.6 (7.4-10.4) fL Immature Gran % (Auto) 0.2 % Neut % (Auto) 52.4 % Lymph % (Auto) 37.0 % [place] % (Auto) 10.2 % Eos % (Auto) 0.0 % Baso % (Auto) 0.2 % Immature Gran # (Auto) 0.01 (0.00-0.02) K/uL Neut # (Auto) 3.07 (1.4-6.5) K/uL Lymph # (Auto) 2.17 (1.2-3.4) K/uL [place] # (Auto) 0.60 H (0.11-0.59) K/uL Eos # (Auto) 0.00 (0-0.5) K/uL Baso # (Auto) 0.01 (0-0.2) K/uL Hypochromasia Present Ovalocytes 1+ PT 10.2 (9.0-12.0) Seconds INR 1.0 (0.9-1.1) APTT 35.9 H (21.0-31.0) Seconds PTT Ratio 1.3 Sodium 118 L* (136-145) mmol/L Potassium 3.8 (3.5-5.1) mmol/L Chloride 83 L (98-107) mmol/L Carbon Dioxide 29 (21-32) mmol/L Anion Gap 6.0 (3-11) BUN 5 L (7-18) mg/dl Creatinine 0.53 L (0.6-1.2) mg/dl Est Cr Clr Drug Dosing 101.1 ml/min Est GFR ( Amer) 118.8 Est GFR (Non-Af Amer) 102.5 BUN/Creatinine Ratio 9.2 L (10-20) Glucose 102 H (70-99) mg/dl Osmolality (280-300) mOsm/kg Calcium 8.9 (8.5-10.1) mg/dl Magnesium 1.8 (1.8-2.4) mg/dl Total Bilirubin 0.2 (0.2-1) mg/dl AST 25 (15-37) U/L ALT 27 (12-78) U/L Alkaline Phosphatase 100 (45-117) U/L Troponin I < 0.015 (0-0.045) ng/ml Total Protein 7.5 (6.4-8.2) gm/dl Albumin 3.7 (3.4-5.0) gm/dl Globulin 3.8 (2.5-4.0) gm/dl Albumin/Globulin Ratio 1.0 (0.9-2) TSH 3.910 (0.300-4.500) uIu/ml 11/06/19 Range/Units 18:08 WBC (4.8-10.8) K/uL RBC (4.2-5.4) M/uL Hgb (12.0-16.0) g/dL Hct (37-47) % MCV (80-100) fL MCH (25-34) pg MCHC (32-36) g/dL RDW Std Deviation (36.4-46.3) fL RDW Coeff of Chepe (11.5-14.5) % Plt Count (130-400) K/uL MPV (7.4-10.4) fL Immature Gran % (Auto) % Neut % (Auto) % Lymph % (Auto) % [place] % (Auto) % Eos % (Auto) % Baso % (Auto) % Immature Gran # (Auto) (0.00-0.02) K/uL Neut # (Auto) (1.4-6.5) K/uL Lymph # (Auto) (1.2-3.4) K/uL [place] # (Auto) (0.11-0.59) K/uL Eos # (Auto) (0-0.5) K/uL Baso # (Auto) (0-0.2) K/uL Hypochromasia Ovalocytes PT (9.0-12.0) Seconds INR (0.9-1.1) APTT (21.0-31.0) Seconds PTT Ratio Sodium (136-145) mmol/L Potassium (3.5-5.1) mmol/L Chloride (98-107) mmol/L Carbon Dioxide (21-32) mmol/L Anion Gap (3-11) BUN (7-18) mg/dl Creatinine (0.6-1.2) mg/dl Est Cr Clr Drug Dosing ml/min Est GFR ( Amer) Est GFR (Non-Af Amer) BUN/Creatinine Ratio (10-20) Glucose (70-99) mg/dl Osmolality 244 L (280-300) mOsm/kg Calcium (8.5-10.1) mg/dl Magnesium (1.8-2.4) mg/dl Total Bilirubin (0.2-1) mg/dl AST (15-37) U/L ALT (12-78) U/L Alkaline Phosphatase (45-117) U/L Troponin I (0-0.045) ng/ml Total Protein (6.4-8.2) gm/dl Albumin (3.4-5.0) gm/dl Globulin (2.5-4.0) gm/dl Albumin/Globulin Ratio (0.9-2) TSH (0.300-4.500) uIu/ml Imaging Data Radiologist's Impression: XR chest 1V portable CLINICAL HISTORY: weakness COMPARISON STUDY: 10/31/2019 FINDINGS: The cardiac and mediastinal contours remain stable. There is no acute parenchymal consolidation. There is no failure. There are no pleural effusions. Underlying emphysema is suspected.[ IMPRESSION: No active disease in the chest. ACT 112: Negative or not required by law. Electronically signed by: Eric Agarwal M.D. 11/06/2019 5:42 PM Dictated: 11/06/191740 Transcribed: 11/06/191740 ECG Data Attestation: I personally reviewed and interpreted this ECG as follows: Indication: + weakness Rate (beats per minute): 72 Additional Comments: EKG revealed normal sinus rhythm at 72 bpm. No ectopy no acute ST segment abnormalities were noted. No significant change compared to tracing from September 04, 2018. Blood Pressure Blood Pressure Findings: Elevated blood pressure Blood Pressure Disposition: further management by hospitalist [facility] Narrative The patient is a 59-year-old female with recently diagnosed small cell lung carcinoma who presented to the emergency department for an evaluation of generalized weakness as well as abnormal laboratory studies. The patient had laboratory studies obtained in preparation for port placement as well as further treatment of this cancer and she was found to have very low sodium. The patient was advised to go to the emergency department. The patient was treated with a small fluid bolus in the emergency department. I discussed the patient's laboratory and radiographic studies with her. Because of the degree of hyponatremia I discussed her case with the on-call [facility] hospitalist group. They have agreed to evaluate the patient in the emergency department for further management and disposition. Impression & Plan Acute hyponatremia, Small cell lung cancer in adult Discharge Plan Visit Data *Final* Discharge Date/Time: 11/06/19 19:06 Chief Complaint: Abnormal Labs/Diagnostic Testing Stated Complaint: LOW SODIUM, LOW CHLORIDE ED Provider: Paulino Gudino Discharge Problem: Acute hyponatremia, Small cell lung cancer in adult Patient Disposition: Admitted As Inpatient Condition: Good Discharge Instructions Interventions: ED Discharge Assessment Last Done: 11/06/19 19:06
[2019-11-06 18:23] LABS: Basophils # (auto) 0.01 K/uL (0-0.2); Basophils % (auto) 0.2 %; Hematocrit (blood only) 33.5 % (37-47); Hemoglobin 11.1 g/dL (12.0-16.0); Immature Granulocytes # (auto) 0.01 K/uL (0.00-0.02); Immature Granulocytes % (auto) 0.2 %; Lymphocytes # (auto) 2.17 K/uL (1.2-3.4); Mean Corpuscular Hemoglobin 22.9 pg (25-34); Mean Corpuscular Hgb Conc 33.1 g/dL (32-36); Mean Corpuscular Volume 69.1 fL (80-100); Mean Platelet Volume 8.6 fL (7.4-10.4); Monocytes % (auto) 10.2 %; Neutrophils # (auto) 3.07 K/uL (1.4-6.5); Neutrophils % (auto) 52.4 %; Platelet Count 288 K/uL (130-400); RDW Coefficient of Variation 16.7 % (11.5-14.5); RDW Standard Deviation 41.9 fL (36.4-46.3); Red Blood Count 4.85 M/uL (4.2-5.4); White Blood Count 5.86 K/uL (4.8-10.8)
[2019-11-06 18:33] LABS: Partial Thromboplastin Ratio 1.3; Partial Thromboplastin Time 35.9 Seconds (21.0-31.0); Prothrombin Time 10.2 Seconds (9.0-12.0)
[2019-11-06 18:34] LABS: Appearance Urine Clear (Clear); Bacteria Urine Automated Negative (Negative); Bilirubin Urine Negative (Negative); Blood Urine Negative (Negative); Cast Urine Automated 0 /lpf (0-5); Color Urine Yellow; Epithelial Cell Urine Auto 0-5 /lpf (0-5); Glucose Urine UA Negative (Negative); Ketones Urine Negative (Negative); Leukocyte Esterase Urine 2+ (Negative); Nitrite Urine Negative (Negative); Protein Urine Negative (Negative); RBC Urine Automated 0-4 /hpf (0-4); Specific Gravity Urine 1.008 (1.000-1.030); Urobilinogen Urine Negative (Negative)
[2019-11-06 18:41] LABS: Alanine Aminotransferase 27 U/L (12-78); Albumin Level 3.7 gm/dl (3.4-5.0); Aspartate Aminotransferase 25 U/L (15-37); BUN Creatinine Ratio 9.2 (10-20); Blood Urea Nitrogen 5 mg/dl (7-18); Calcium 8.9 mg/dl (8.5-10.1); Carbon Dioxide 29 mmol/L (21-32); Chloride 83 mmol/L (98-107); Creatinine Clr Calc Pharmacy 101.1 ml/min; Est GFR (African American) 118.8; Est GFR (Non-African American) 102.5; Glucose 102 mg/dl (70-99); Magnesium 1.8 mg/dl (1.8-2.4); Potassium 3.8 mmol/L (3.5-5.1); Sodium 118 mmol/L (136-145)
[2019-11-06 18:45] LABS: Hypochromasia Present; Ovalocytes 1+
[2019-11-06 18:51] LABS: Alkaline Phosphatase 100 U/L (45-117); Bilirubin,Total 0.2 mg/dl (0.2-1); Globulin 3.8 gm/dl (2.5-4.0); Total Protein 7.5 gm/dl (6.4-8.2); Troponin I < 0.015 ng/ml (0-0.045)
--- NOTE | 2019-11-06 19:08 | History & Physical Report ---
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 Matson who recommends fluid restrict 1800ml with repeat Na at 9pm to be sure not over correcting Pt mostly asymptomatic except for dizziness and unsteady gait with freq falls She does have psych hx with psychosis and schizophrenia on Navane and expresses polydipsia (2) Small cell lung cancer in adult: recent dx follows thoracic medicine in [place] follows Dr. Nolasco for oncology To have port placed by Dr. Bergeron 11/11 and to begin chemo carboplatin 11/12 (3) Paroxysmal A-fib: rate and rhythm controlled on flecanide and verapamil continue eliquis for stroke prophylaxis (4) CAD (coronary artery disease): History of stent LAD Follows [facility] continue asa, statin, lisinopril (5) COPD (chronic obstructive pulmonary disease): Emphysema with chronic respiratory failure on 2 L of O2 Continue Advair, Spiriva No acute exacerbation (6) Hypertension: blood pressure elevated in ED continue lisinopril and verapamil monitor (7) RAKESH on CPAP: CPAP at bedtime (8) Pre-diabetes: Last A1c 5.7 08/13/19 She is on metformin 500 mg twice daily, hold while inpatient Monitor Accu-Cheks AC/HS if consistently > 180 add sliding scale coverage obtain A1C in a.m. (9) Left rib fracture: seen and examined in ED 10/30 09/23 to fall dx nondistracted left anterior 8th and 9th rib fractures seen on the rib series conservative tx, not complaining of pain (10) Hypothyroidism: Continue levothyroxine and Cytomel TSH WNL (11) Schizoaffective disorder: mood stable, does have mild TD sx continue navane (12) DVT prophylaxis: Continue eliquis Disposition: admit to tele Follow up: PCP Dr. Roland upon discharge Pt was seen and examined in collaboration with Dr. Rodriges, please see addendum History of Present Illness Chief Complaint: Referred by oncology secondary to abnormal labs Primary Care Provider: Dmitry Roland DO This is a 59-year-old female who has significant past medical history of recent ly diagnosed left lower lobe lung small cell carcinoma, PAF anticoagulated on Eliquis and rhythm controlled on flecainide, chronic respiratory failure secondary to emphysema on chronic 2 L of O2, RAKESH on CPAP, history of CVA without residual deficit, CAD, hypothyroidism, prediabetes, depression, schizoaffective disorder, PTSD who presents to ED at referral of her oncologist secondary to abnormal labs. She was told she had low sodium and low chloride and was urged to seek ED. Of significance patiently recently diagnosed with primary left lower lobe lung small cell CA by biopsy on 10/11/2019. She had appointment with general surgery Dr. Bergeron today to arrange Mediport placement on 11/11. She had preoperative lab work-up which revealed serum sodium of 117 and was urged to seek ED. She states this is the first time she has had low sodium as she has been told this before. She does admit over the past 2 to 3 weeks she has not been drinking as much because of having appointments. He said she usually drinks 8-16 ounce bottles of water daily, but lately has only been drinking 5. She also admits to frequent falls over the past 3 months with 5 of them and occasional dizziness. She denies any fever, chills, sweats, lightheadedness, syncope, chest pain, shortness of breath, palpitations, cough, hemoptysis, nausea, vomiting, abdominal pain. She is more on the constipated side and her l ast BM was 2 to 3 days ago. She denies any increased frequency with urination, dysuria or hematuria. Her appetite has otherwise been decreased. She has been compliant with her medications. In ED she remained hemodynamically stable. Lab work revealed serum sodium 118, K3.8, chloride 83, BUN 5, creatinine 1.53 glucose 102, serum osmolality 244, TSH and troponin WNL, urine osmolality 106, urine sodium 16. Chest x-ray was negative for acute cardiopulmonary abnormality. Allergies Allergy/AdvReac Type Severity Reaction Status Date / Time Beta-Blockers Allergy Severe Confusion; Verified 11/06/19 19:17 (Beta-Adrenergic Bloc Diarrhea; Rash furosemide [From Lasix] Allergy Severe "LUNGS Verified 11/06/19 19:17 CLOSE UP" tetracycline Allergy Intermediate RASH; Verified 11/06/19 19:17 "MYCINS" ALLERGY acetaminophen Allergy Mild GI UPSET Verified 11/06/19 19:17 clindamycin Allergy Unknown "MYCINS" Verified 11/06/19 19:17 ALLERGY diltiazem Allergy Unknown ? Verified 11/06/19 19:17 Sulfa (Sulfonamide Allergy Unknown Unknown Unverified 11/06/19 19:17 Antibiotics) sumatriptan Allergy Unknown "TRIPTANS" Verified 11/06/19 19:17 ALLERGY codeine AdvReac Severe SYNCOPE Verified 11/06/19 19:17 PER PATIENT oxycodone AdvReac Mild GI UPSET Verified 11/06/19 19:17 METAL JEWELRY AdvReac Mild ITCHINESS Uncoded 10/31/19 10:48 "WITH CHEAP JEWELRY" Home Medications Home Medications Medication Instructions Recorded Confirmed Type apixaban 5 mg tablet 5 mg PO BID #180 tab 03/14/19 11/06/19 History flecainide 100 mg tablet 100 mg PO BID #180 tab 03/14/19 11/06/19 History ipratropium 0.5 mg-albuterol 3 mg 3 ml INHALATION Q4H PRN ml 03/14/19 11/06/19 History (2.5 mg base)/3 mL nebulization soln levothyroxine 100 mcg tablet 100 mcg PO DAILYBB tab 03/14/19 11/06/19 History liothyronine 5 mcg tablet 5 mcg PO BID tab 03/14/19 11/06/19 History lisinopril 10 mg tablet 10 mg PO HS #90 tab 03/14/19 11/06/19 History metformin 500 mg tablet 500 mg PO BID tab 03/14/19 11/06/19 History montelukast 10 mg tablet 10 mg PO HS tab 03/14/19 11/06/19 History omeprazole 20 mg capsule,delayed 20 mg PO BID cap 03/14/19 11/06/19 History release pravastatin 40 mg tablet 80 mg PO HS #180 tab 03/14/19 11/06/19 History thiothixene 5 mg capsule 5 mg PO HS cap 03/14/19 11/06/19 History albuterol sulfate 90 mcg/actuation 1 puffs INH .COMPLEX PRN 03/27/19 11/06/19 History aerosol inhaler bupropion HCl 200 mg tablet,12 hr 200 mg PO QAM ea 03/27/19 11/06/19 History sustained-release fluticasone 250 mcg-salmeterol 50 1 puffs INH QDD ea 03/27/19 11/06/19 History mcg/dose blistr powdr for inhalation aspirin 81 mg PO HS 10/31/19 11/06/19 History tiotropium bromide [Spiriva with 18 mcg INHALATION QDD 10/31/19 11/06/19 History HandiHaler] ondansetron HCl 8 mg PO UD PRN 11/06/19 11/06/19 History prochlorperazine maleate 10 mg PO UD PRN 11/06/19 11/06/19 History [Compazine] verapamil 240 mg PO QAM 11/06/19 11/06/19 History Past Med/Surg History Medical History (Updated 11/06/19 @ 19:39 by Zully Thompson PA-C) Abnormal mammography CAD (coronary artery disease) Chronic cerebral ischemia Common migraine without aura Contusion of left hip (Resolved) COPD (chronic obstructive pulmonary disease) On oxygen Depression Diaphragmatic hernia Diverticulosis of colon Dizziness DS (disseminated sclerosis) Dyslipidemia Dysmetabolic syndrome X Eczema GERD (gastroesophageal reflux disease) Hearing loss Hyponatremia Hypothyroidism Memory loss Migraines Neuropathy Non-occlusive coronary artery disease RAKESH on CPAP Osteoporosis, unspecified Paroxysmal A-fib Pre-diabetes Schizoaffective disorder Unspecified osteomyelitis, ankle and foot Surgical History (Updated 11/06/19 @ 19:37 by Zully Thompson PA-C) History of bunionectomy History of colonoscopy History of coronary angioplasty Stent by Dr. Bryan History of tubal ligation (Resolved) History of wisdom tooth extraction (Resolved) Family History (Updated 11/06/19 @ 19:12 by Zully Thompson PA-C) Father Cancer Hypertension Mother Breast cancer Diabetes Hypertension Social History (Updated 11/06/19 @ 19:13 by Zully Thompson PA-C) Preferred Language: Hungarian Communication Ability: Effective Cco & President Required: No Beliefs That Will Affect Care: None marital status: Single Current Living Situation: Family Current Living Situation Comment: Son and grandchild Other Information That Helps Us Care for You: No Feels Safe at Home: Yes Safety Concerns: Feels Safe At This Time Smoking Status: Former smoker Tobacco Cessation Education Requested by Patient: No Hx Alcohol Use: Yes Alcohol Intake Frequency: Rarely Hx Substance Use: No Review of Systems Review of Systems: All systems reviewed & are unremarkable except as noted in HPI & below Physical Exam Physical Exam: Constitutional: WD/WN, female, appears older than stated age, vitals as above, NAD, sitting up in bed, pleasant, conversing easily Head: Normocephalic, Atraumatic Eyes: PERRL, conjunctivae normal, anicteric sclerae ENMT: external ear and nose normal, oropharynx normal Neck: trachea midline, no thyromegaly normal visual inspection Respiratory: normal respiratory effort, lungs clear to auscultation, no wheeze, rales, rhonchi. Normal insp/exp effort, no accessory muscle use Cardiovascular: RRR, no murmur, no edema Vessels: no JVD or carotid bruit Chest: normal inspection of chest Abdomen: Obese abdomen,normal bowel sounds, soft, nontender, no hepatosplenomegaly Musculoskeletal: no cyanosis or clubbing, extremities motor strength 5/5 Skin: no rashes, warm and dry normal turgor Neurologic: PERRL, EOMI, accommodation nl, no face palsy, no dysarthria CN's II-XI intact bilaterally and moves all extremities Psychiatric: A+Ox3, euthymic affect Lymphatic: no cervical or axillary lymphadenopathy : deferred Results & Data Vital Signs (Past 12 Hours) Vital Signs Temp Pulse Resp BP Pulse Ox 11/06/19 17:10 36.5 C 71 16 180/82 H 99 Laboratory Results Short CBC 11/06/19 Range/Units 18:08 WBC 5.86 (4.8-10.8) K/uL Hgb 11.1 L (12.0-16.0) g/dL Hct 33.5 L (37-47) % Plt Count 288 (130-400) K/uL BMP 11/06/19 18:08 Sodium 118 L* Potassium 3.8 Chloride 83 L Carbon Dioxide 29 BUN 5 L Creatinine 0.53 L Glucose 102 H Calcium 8.9 Cardiac Enzymes 11/06/19 Range/Units 18:08 Troponin I < 0.015 (0-0.045) ng/ml Liver Function 11/06/19 Range/Units 18:08 Total Bilirubin 0.2 (0.2-1) mg/dl AST 25 (15-37) U/L ALT 27 (12-78) U/L Alkaline Phosphatase 100 (45-117) U/L Albumin 3.7 (3.4-5.0) gm/dl Urine 11/06/19 Range/Units Unknown Urine Color Yellow Urine Appearance Clear (Clear) Urine pH 7.0 (4.5-7.5) Ur Specific [place] 1.008 (1.000-1.030) Urine Protein Negative (Negative) Urine Glucose (UA) Negative (Negative) Diagnostic Findings CXR: IMPRESSION: No active disease in the chest. Medications Administered Discontinued Medications Sodium Chloride (Nss) 500 mls @ 999 mls/hr IV .Q31M LEROY Stop: 11/06/19 18:00 Last Admin: 11/06/19 18:43 Dose: Not Given Documented by: [id number] ECG Rate (beats per minute): 72 Rhythm: normal sinus Code Status & VTE Plan Code Status Full Code VTE Prophylaxis Plan VTE Prophylaxis will be ordered: Yes Supervising Physician Co-Signing Physician Notes Care coordinated with Zully Thompson PA-C. Agree with above note. Patient seen and examined. Please refer to her notes for full details. Vital signs reviewed. Physical exam: General exam: Alert and oriented. Not in acute distress. CVS: S1 and S2 heard, regular rate and rhythm, no murmurs. RS: Clear to auscultation, no wheezing or crackles. ABD: Soft, bowel sounds present, nontender, no distention. 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 EXT: No edema, no erythema. Labs: Reviewed. Assessment and plan: 59F with multiple medical problems recent diagnosis of small cell lung cancer of left lower lobe and plan for a port placement next week and out patinet labs showed hyponatremia Hyponatremia na 118 today asymptomatic moslty siadh d/w nephrology plan for fluid restriction 1800ml/day bmp q4hrs close monitoring for over correction nephro consulted Lung cancer small cell followup with heme/onco Other diagnosis and plan of care as per Zully Thompson PA-C. Jarrod del rio MD. (1) Left rib fracture Encounter type: initial encounter Fracture type: closed Rib fracture type: multiple ribs Qualified Code(s): S22.42XA - Multiple fractures of ribs, left side, initial encounter for closed fracture
[2019-11-06] MEDS ORDERED: GLUCOSE 40% GEL 15 GM TUBE PO PRN (19:59)
[2019-11-06] MEDS ORDERED: GLUCAGON FOR INJ 1 MG VIAL SQ PRN (19:59)
[2019-11-06] MEDS ORDERED: ALBUTEROL HFA 8 GM INHALER INH PRN (19:59)
[2019-11-06] MEDS ORDERED: ALUMINUM/MAGNESIUM SUSP 30 ML UDC PO PRN (19:59)
[2019-11-06] MEDS ORDERED: DEXTROSE 50% 50 ML SYRINGE IV PRN (19:59)
[2019-11-06] MEDS ORDERED: ALBUT/IPRATROP 3MG/0.5MG NEB 3 ML VIAL INH PRN (19:59)
[2019-11-06] MEDS ORDERED: GLUCOSE 10 TABS/TUBE PO PRN (19:59)
[2019-11-06] MEDS ORDERED: CARBOHYDRATES FOR HYPOGLYCEMIA PO PRN (19:59)
[2019-11-06] MEDS: APIXABAN 5 MG TABLET PO SCH (21:17)
[2019-11-06] MEDS: ASPIRIN 81 MG ECTAB PO SCH (21:17)
[2019-11-06] MEDS: LIOTHYRONINE SODIUM 5 MCG TAB PO SCH (21:17)
[2019-11-06] MEDS: PANTOprazole 40 MG TAB PO SCH (21:18)
[2019-11-06] MEDS: FLECAINIDE ACETATE 100 MG TABLET PO SCH (21:19)
[2019-11-06] MEDS: MONTELUKAST SODIUM 10 MG TABLET PO SCH (21:19)
[2019-11-06] MEDS: PRAVASTATIN SOD 40 MG TAB PO SCH (21:19)
[2019-11-06] MEDS: lisinopriL 10 MG TAB PO SCH (21:20)
[2019-11-06] MEDS: THIOTHIXENE 5 MG CAP PO SCH (21:22)
[2019-11-06 21:27] LABS: BUN Creatinine Ratio 6.6 (10-20); Calcium 9.5 mg/dl (8.5-10.1); Creatinine Clr Calc Pharmacy 93.1 ml/min; Est GFR (African American) 115.3; Est GFR (Non-African American) 99.5; Potassium 3.6 mmol/L (3.5-5.1)
[2019-11-07 01:21] LABS: BUN Creatinine Ratio 11.7 (10-20); Calcium 8.7 mg/dl (8.5-10.1); Est GFR (Non-African American) 101.8; Potassium 3.9 mmol/L (3.5-5.1)
[2019-11-07] MEDS ORDERED: GLUCAGON FOR INJ 1 MG VIAL SQ PRN (01:56)
[2019-11-07] MEDS ORDERED: GLUCOSE 40% GEL 15 GM TUBE PO PRN (01:56)
[2019-11-07] MEDS ORDERED: GLUCOSE 10 TABS/TUBE PO PRN (01:56)
[2019-11-07] MEDS ORDERED: CARBOHYDRATES FOR HYPOGLYCEMIA PO PRN (01:56)
[2019-11-07] MEDS ORDERED: DEXTROSE 50% 50 ML SYRINGE IV PRN (01:56)
[2019-11-07] MEDS: INSULIN ASPART 100 UNITS/ML 3 ML PEN SC SCH ×5 (02:20→21:25)
[2019-11-07] MEDS: LEVOTHYROXINE SODIUM 100 MCG TABLET PO SCH (06:02)
[2019-11-07 06:11] LABS: Hemoglobin 11.2 g/dL (12.0-16.0); Mean Corpuscular Hemoglobin 22.5 pg (25-34); Mean Corpuscular Hgb Conc 32.9 g/dL (32-36); Mean Corpuscular Volume 68.4 fL (80-100); Mean Platelet Volume 8.9 fL (7.4-10.4); Platelet Count 290 K/uL (130-400); RDW Coefficient of Variation 16.9 % (11.5-14.5); RDW Standard Deviation 42.1 fL (36.4-46.3); Red Blood Count 4.97 M/uL (4.2-5.4); White Blood Count 4.77 K/uL (4.8-10.8)
[2019-11-07 06:44] LABS: BUN Creatinine Ratio 11.4 (10-20); Calcium 8.8 mg/dl (8.5-10.1); Creatinine Clr Calc Pharmacy 96.4 ml/min; Est GFR (African American) 116.6; Est GFR (Non-African American) 100.6; Potassium 4.1 mmol/L (3.5-5.1)
[2019-11-07] MEDS: VERAPAMIL HCL 240 MG TABCR PO SCH (08:29)
[2019-11-07] MEDS: FLECAINIDE ACETATE 100 MG TABLET PO SCH ×2 (08:29→20:47)
[2019-11-07] MEDS: PANTOprazole 40 MG TAB PO SCH ×2 (08:30→20:48)
[2019-11-07] MEDS: LIOTHYRONINE SODIUM 5 MCG TAB PO SCH ×2 (08:30→20:49)
[2019-11-07] MEDS: BuPROPion SR 100 MG TABCR PO SCH (08:30)
[2019-11-07] MEDS: APIXABAN 5 MG TABLET PO SCH ×2 (08:31→20:46)
[2019-11-07] MEDS: POLYETHYLENE (MIRALAX) 17 GM PACK PO PRN (08:41)
[2019-11-07 09:14] LABS: Estimated Average Glucose 120 mg/dl; Hemoglobin A1C 5.8 % (4.5-5.6)
[2019-11-07 09:43] LABS: BUN Creatinine Ratio 10.3 (10-20); Calcium 9.2 mg/dl (8.5-10.1); Creatinine Clr Calc Pharmacy 81.8 ml/min; Est GFR (African American) 110.5; Est GFR (Non-African American) 95.3; Potassium 4.1 mmol/L (3.5-5.1)
--- NOTE | 2019-11-07 09:47 | Consultation Report ---
DATE OF CONSULTATION: 11/07/2019 NEPHROLOGY CONSULTATION REASON FOR CONSULT: Hyponatremia. HISTORY OF PRESENT ILLNESS: The patient is a 59-year-old female with history of schizophrenia relatively controlled, but also has a diagnosis of left lower lobe small cell carcinoma; chronic atrial fibrillation, on Eliquis; chronic respiratory failure secondary to severe emphysema, on chronic oxygen; obstructive sleep apnea, on CPAP as well as history of stroke without residual deficit and multiple other medical problems. She was sent over to the Emergency Department yesterday by her oncologist because of abnormal labs. Her sodium has been somewhat low even in the past, but yesterday was extremely low at 118. She was completely asymptomatic. She has had low sodium of 125 on October 23 and 130 on October 11. She does drink lots of water as she feels she is constantly thirsty because of oxygen. She is to have MediPort placed on 11/12/2019 and to begin chemotherapy with carboplatin on 11/13/2019. Overnight, she was placed just on fluid restriction of 1800 mL, but with that sodium is correcting slightly faster than we like and is up to 126 by this morning. She is still completely asymptomatic. Blood pressure is slightly high in the 150 systolic range. She is already complaining a lot about fluid restriction. PAST MEDICAL AND SURGICAL HISTORY: Already reviewed in HPI. ALLERGIES: List reviewed in detail. HOME MEDICATIONS: List was reviewed in detail and includes extensive list of medicines including Eliquis, flecainide, levothyroxine, lisinopril, metformin, montelukast, omeprazole, pravastatin, albuterol inhaler, bupropion tablet, aspirin, Spiriva, ondansetron, Compazine, verapamil. PAST SURGICAL HISTORY: History of bunionectomy, history of colonoscopy, coronary angioplasty, tubal ligation. FAMILY HISTORY: Not significant for any renal disease. SOCIAL HISTORY: Former smoker. No heavy alcohol use. She is single, lives with her family. REVIEW OF SYSTEMS: Other than chronic shortness of breath from her severe COPD, no acute symptoms noted. PHYSICAL EXAMINATION: GENERAL: Middle-aged white female, who is not in any overt respiratory distress. She is awake, alert, oriented x3. HEENT: Mucous membrane is moist. NECK: Supple. No jugular venous distention. CHEST: Bilateral prolonged wheezing as well as prolonged expiration with occasional crackles. CARDIOVASCULAR: S1 and S2 distant. No edema, no JVD. ABDOMEN: Soft, nontender. EXTREMITIES: Shows no edema. NECK: Supple. No jugular venous distention. ABDOMEN: Soft and nontender. LABORATORY TESTS: Reviewed in detail. Serum sodium was 118 on admission with a urine osmolarity of 106, urine sodium was 16, BUN was 5, creatinine 0.5, chloride 83, serum osmolarity was 244. ASSESSMENT AND PLAN: A 59-year-old female with underlying severe COPD and small cell carcinoma of the lung, presenting with severe hyponatremia of 118. I have been consulted for hyponatremia. Hyponatremia: She has true hyponatremia. She is euvolemic in status. Both the diagnosis of severe COPD as well as small cell carcinoma of the lung makes her extremely susceptible to hyponatremia problem. She has underlying SIADH that is most likely related with her underlying diagnosis of small cell carcinoma of the lung. However, she does have significant component of polydipsia and was drinking excessive amount of liquid. She feels her mouth is constantly thirsty and she drinks a lot of water, although she is still in somewhat of a denial about the amount of fluid she is drinking. It also does not appear she has very good intake of protein, so the combination of underlying SIADH with excessive liquid drinking and inadequate protein intake is causing the super low serum sodium. Blood sodium has gone up relatively fast, in fact slightly too fast than ideal. I would like her serum sodium to go no more than 10 mEq in a 24-hour time period. At this time, it is going faster than that. We will increase the fluid limit to 2200 mL. Also suggested she can drink 1 bottle of water within the next few hours to slow down the rate of correction. She will be instructed about the fluid limit she can do when she gets discharged. However, it does not appear she actually needs a truly restrictive fluid restriction. She may just have to drink reasonable amount. We will do labs again in 6 hour at 12 o'clock and then again at 6:00 p.m. I expect her serum sodium to be 130 plus by tomorrow morning. [facility]
[2019-11-07] MEDS ORDERED: FLUTICASONE/SALMETEROL 250/50 (ADVAIR) 14 PUFF/1 INHALER INH SCH (11:00)
[2019-11-07] MEDS ORDERED: TIOTROPIUM BROMIDE 5 PUFF/90 MCG INH INH SCH (11:00)
--- NOTE | 2019-11-07 11:12 | Hospitalist Progress Note ---
Date of Service November 07, 2019 Assessment & Plan (1) Chronic hyponatremia: 59-year-old female who has significant past medical history of recently diagnosed left lower lobe lung small cell carcinoma, PAF anticoagulated on Eliquis and rhythm controlled on flecainide, chronic respiratory failure secondary to emphysema on chronic 2 L of O2, RAKESH on CPAP, history of CVA without residual deficit, CAD, hypothyroidism, prediabetes, depression, schizoaffective disorder, PTSD who presents to ED at referral of her oncologist secondary to abnormal labs. Na on 10/23 was 125 and 10/11/17 130 Chronic hyponatremia with Na 118 yesterday Hypotonic hypovolemia. Serum osm is 244. Uosm is 106. Euvolemia Likely combination of SIADH, excessive water drinking and low caloric intake Na has increased to 126 this AM. Increasing too fast in 24h Fluid restriction increased to 2200cc per Renal recs. RN updated. Continue to monitor Na q6h Avoid rapid correction of >10 in 24h (2) Small cell lung cancer in adult: Recent dx Follows thoracic medicine in [place] Follows Dr. Nolasco for oncology To have port placed by Dr. Bergeron 11/11 and to begin chemo carboplatin 11/12 (3) Paroxysmal A-fib: Rate and rhythm controlled on flecanide and verapamil continue eliquis for stroke prophylaxis (4) CAD (coronary artery disease): History of stent LAD Follows [facility] cardiology Continue asa, statin, lisinopril (5) COPD (chronic obstructive pulmonary disease): Emphysema with chronic respiratory failure on 2 L of O2 Continue Advair, Spiriva No acute exacerbation (6) Hypertension: BP elevated on admission Currently better controlled Continue lisinopril and verapamil Continue to monitor (7) RAKESH on CPAP: CPAP at bedtime (8) Pre-diabetes: Last A1c 5.7 08/13/19, now 5.8 She is on metformin 500 mg twice daily, hold while inpatient Monitor Accu-Cheks AC/HS if consistently > 180 add sliding scale coverage Insulin sliding scale for now (9) Left rib fracture: Seen and examined in ED 10/30 09/23 to fall dx nondistracted left anterior 8th and 9th rib fractures seen on the rib series conservative tx, not complaining of pain (10) Hypothyroidism: Continue levothyroxine and Cytomel TSH WNL (11) Schizoaffective disorder: Mood stable, does have mild TD sx Continue navane (12) DVT prophylaxis: Continue eliquis Admission and Anticipated Discharge Date Admission Date: November 06, 2019 Subjective Patient seen and examined. She has no new complaints Physical Exam Constitutional: + well hydrated; no acute distress Eyes: PERRL, conjunctivae normal, anicteric sclerae ENMT: external ear and nose normal, oropharynx normal On nasal oxygen at 2l/min Respiratory: normal respiratory effort, lungs clear to auscultation Cardiovascular: RRR, no murmur, no edema Gastrointestinal (Abdomen): normal bowel sounds, soft, nontender, no hepatos plenomegaly Musculoskeletal: no cyanosis or clubbing, extremities motor strength 5/5 Neurologic: PERRL, EOMI, accommodation nl, no face palsy, no dysarthria Psychiatric: A+Ox3, euthymic affect Results & Data ([facility] [place]) Vital Signs (Past 12 Hours) Vital Signs Temp Pulse Pulse Resp BP Pulse Ox 11/07/19 08:00 77 11/07/19 07:30 36.5 C 75 18 152/81 H 98 11/07/19 04:25 79 16 96 11/07/19 03:43 36.5 C 88 18 145/79 H 98 11/06/19 23:21 36.7 C 84 18 157/71 H 97 Laboratory Results Abnormal lab results 11/06/19 11/06/19 11/06/19 Range/Units 18:08 18:08 18:08 WBC (4.8-10.8) K/uL Hgb 11.1 L (12.0-16.0) g/dL Hct 33.5 L (37-47) % MCV 69.1 L (80-100) fL MCH 22.9 L (25-34) pg RDW Coeff of [place] 16.7 H (11.5-14.5) % [place] # (Auto) 0.60 H (0.11-0.59) K/uL APTT 35.9 H (21.0-31.0) Seconds Sodium 118 L* (136-145) mmol/L Chloride 83 L (98-107) mmol/L BUN 5 L (7-18) mg/dl Creatinine 0.53 L (0.6-1.2) mg/dl BUN/Creatinine Ratio 9.2 L (10-20) Glucose 102 H (70-99) mg/dl POC Glucose (70-99) mg/dl Hemoglobin A1c (4.5-5.6) % Osmolality (280-300) mOsm/kg Ur Leukocyte Esterase (Negative) Urine WBC (Auto) (0-5) /hpf Urine Osmolality (500-800) mOsm/kg 11/06/19 11/06/19 11/06/19 Range/Units 18:08 20:47 Unknown WBC (4.8-10.8) K/uL Hgb (12.0-16.0) g/dL Hct (37-47) % MCV (80-100) fL MCH (25-34) pg RDW Coeff of [place]pe (11.5-14.5) % [place] # (Auto) (0.11-0.59) K/uL APTT (21.0-31.0) Seconds Sodium 120 L (136-145) mmol/L Chloride 85 L (98-107) mmol/L BUN 4 L (7-18) mg/dl Creatinine 0.58 L (0.6-1.2) mg/dl BUN/Creatinine Ratio 6.6 L (10-20) Glucose 100 H (70-99) mg/dl POC Glucose (70-99) mg/dl Hemoglobin A1c (4.5-5.6) % Osmolality 244 L (280-300) mOsm/kg Ur Leukocyte Esterase 2+ H (Negative) Urine WBC (Auto) 10-30 H (0-5) /hpf Urine Osmolality (500-800) mOsm/kg 11/06/19 11/07/19 11/07/19 Range/Units Unknown 00:49 02:04 WBC (4.8-10.8) K/uL Hgb (12.0-16.0) g/dL Hct (37-47) % MCV (80-100) fL MCH (25-34) pg RDW Coeff of [place]pe (11.5-14.5) % [place] # (Auto) (0.11-0.59) K/uL APTT (21.0-31.0) Seconds Sodium 123 L (136-145) mmol/L Chloride 90 L (98-107) mmol/L BUN 6 L (7-18) mg/dl Creatinine 0.54 L (0.6-1.2) mg/dl BUN/Creatinine Ratio (10-20) Glucose 106 H (70-99) mg/dl POC Glucose 105 H (70-99) mg/dl Hemoglobin A1c (4.5-5.6) % Osmolality (280-300) mOsm/kg Ur Leukocyte Esterase (Negative) Urine WBC (Auto) (0-5) /hpf Urine Osmolality 106 L (500-800) mOsm/kg 11/07/19 11/07/19 11/07/19 Range/Units 05:57 05:57 05:57 WBC 4.77 L (4.8-10.8) K/uL Hgb 11.2 L (12.0-16.0) g/dL Hct 34.0 L (37-47) % MCV 68.4 L (80-100) fL MCH 22.5 L (25-34) pg RDW Coeff of [place]pe 16.9 H (11.5-14.5) % [place] # (Auto) (0.11-0.59) K/uL APTT (21.0-31.0) Seconds Sodium 126 L (136-145) mmol/L Chloride 92 L (98-107) mmol/L BUN 6 L (7-18) mg/dl Creatinine 0.56 L (0.6-1.2) mg/dl BUN/Creatinine Ratio (10-20) Glucose (70-99) mg/dl POC Glucose (70-99) mg/dl Hemoglobin A1c 5.8 H (4.5-5.6) % Osmolality (280-300) mOsm/kg Ur Leukocyte Esterase (Negative) Urine WBC (Auto) (0-5) /hpf Urine Osmolality (500-800) mOsm/kg 11/07/19 11/07/19 Range/Units 07:19 09:04 WBC (4.8-10.8) K/uL Hgb (12.0-16.0) g/dL Hct (37-47) % MCV (80-100) fL MCH (25-34) pg RDW Coeff of [place]pe (11.5-14.5) % [place] # (Auto) (0.11-0.59) K/uL APTT (21.0-31.0) Seconds Sodium 125 L (136-145) mmol/L Chloride 91 L (98-107) mmol/L BUN (7-18) mg/dl Creatinine (0.6-1.2) mg/dl BUN/Creatinine Ratio (10-20) Glucose (70-99) mg/dl POC Glucose 109 H (70-99) mg/dl Hemoglobin A1c (4.5-5.6) % Osmolality (280-300) mOsm/kg Ur Leukocyte Esterase (Negative) Urine WBC (Auto) (0-5) /hpf Urine Osmolality (500-800) mOsm/kg (1) Left rib fracture Encounter type: initial encounter Fracture type: closed Rib fracture type: multiple ribs Qualified Code(s): S22.42XA - Multiple fractures of ribs, left side, initial encounter for closed fracture
[2019-11-07 13:52] LABS: BUN Creatinine Ratio 12.9 (10-20); Calcium 9.1 mg/dl (8.5-10.1); Creatinine Clr Calc Pharmacy 88.5 ml/min; Est GFR (African American) 113.4; Est GFR (Non-African American) 97.8
--- NOTE | 2019-11-07 15:31 | Electrocardiogram Report ---
Test Reason : Blood Pressure : / mmHG Vent. Rate : 072 BPM Atrial Rate : 072 BPM P-R Int : 174 ms QRS Dur : 094 ms QT Int : 410 ms P-R-T Axes : 056 068 070 degrees QTc Int : 448 ms Poor data quality, interpretation may be adversely affected Normal sinus rhythm Normal ECG When compared with ECG of 04-SEP-2018 23:21, No significant change was found Confirmed by Mikhail Mayes ([id number]) on 11/07/2019 3:31:00 PM Referred By: REFERRED SELF Confirmed By:Mikhail Mayes
--- NOTE | 2019-11-07 15:57 | Electrocardiogram Report ---
Test Reason : Blood Pressure : / mmHG Vent. Rate : 075 BPM Atrial Rate : 075 BPM P-R Int : 184 ms QRS Dur : 090 ms QT Int : 390 ms P-R-T Axes : 080 073 076 degrees QTc Int : 435 ms Normal sinus rhythm Normal ECG When compared with ECG of 06-NOV-2019 18:12, No significant change was found Confirmed by Mikhail Mayes ([id number]) on 11/07/2019 3:56:53 PM Referred By: REFERRED SELF Confirmed By:Mikhail Mayes
[2019-11-07] MEDS: UMECLIDINIUM BROMIDE 62.5MCG/BLISTER 7 PUFFS/INHALER INH SCH (16:46)
[2019-11-07] MEDS: FLUTICASONE/VILANTEROL 100/25MCG 14 PUFFS/INHALER INH SCH (16:46)
[2019-11-07 18:49] LABS: BUN Creatinine Ratio 9.9 (10-20); Calcium 9.1 mg/dl (8.5-10.1); Est GFR (African American) 98.1; Est GFR (Non-African American) 84.7; Potassium 4.1 mmol/L (3.5-5.1)
[2019-11-07] MEDS: DOCUSATE SODIUM/SENNA 50/8.6MG TAB PO SCH (19:07)
[2019-11-07] MEDS: MONTELUKAST SODIUM 10 MG TABLET PO SCH (20:46)
[2019-11-07] MEDS: THIOTHIXENE 5 MG CAP PO SCH (20:47)
[2019-11-07] MEDS: PRAVASTATIN SOD 40 MG TAB PO SCH (20:47)
[2019-11-07] MEDS: lisinopriL 10 MG TAB PO SCH (20:48)
[2019-11-07] MEDS: ASPIRIN 81 MG ECTAB PO SCH (20:48)
[2019-11-07] MEDS ORDERED: lisinopriL 10 MG TAB PO STA (23:47)
[2019-11-08] MEDS: LIDOCAINE 5% 1 PATCH TD SCH ×2 (00:15→08:37)
[2019-11-08] MEDS: lisinopriL 20 MG TAB PO SCH ×2 (04:23→20:07)
[2019-11-08] MEDS: LEVOTHYROXINE SODIUM 100 MCG TABLET PO SCH (06:03)
[2019-11-08 06:17] LABS: Hematocrit (blood only) 34.5 % (37-47); Mean Corpuscular Hgb Conc 31.9 g/dL (32-36); Mean Corpuscular Volume 69.1 fL (80-100); Mean Platelet Volume 8.9 fL (7.4-10.4); Platelet Count 301 K/uL (130-400); RDW Coefficient of Variation 17.1 % (11.5-14.5); Red Blood Count 4.99 M/uL (4.2-5.4); White Blood Count 4.48 K/uL (4.8-10.8)
[2019-11-08] MEDS: POLYETHYLENE (MIRALAX) 17 GM PACK PO PRN (06:36)
[2019-11-08 06:50] LABS: BUN Creatinine Ratio 10.2 (10-20); Calcium 9.2 mg/dl (8.5-10.1); Creatinine Clr Calc Pharmacy 89.5 ml/min; Est GFR (Non-African American) 98.4; Potassium 4.2 mmol/L (3.5-5.1)
--- NOTE | 2019-11-08 08:00 | Nephrology Progress Note ---
Date of Service November 08, 2019 Assessment & Plan (1) Hyponatremia: improving clinically on FR 2L daily and no diuretic. Note that she had worse labs however this afternoon w/ sNa down to 126 -goal sNa 133 tomorrow -cont FR and after this afternoon's labs tightened FR to 1.5 L given lasix al lergy; salt tabs not an option d/t HTN; consider Urea in aM -check bmp later today -- order in (see response as above) -continue to encourage protein rich diet /protein supplements - may need to consult dietary for best supplement Present on Admission?: Yes (2) Hypertension: on verapamil 240 mg daily and lisinopril 20 mg bid (on 10 mg daily as OP). -this evening added hydralazine 5 mg IV q4h prn sbp >170 -lasix allergy noted; would avoid all diuretics in this case d/t hyponatremia Present on Admission?: Yes Admission and Anticipated Discharge Date Admission Date: November 06, 2019 Subjective seen on rounds this am; no c/o uncontrolled pain, n/v, sob, edema, voiding concerns, rash, confusion, gait concerns Review of Systems Review of Systems: All systems reviewed & are unremarkable except as noted in HPI & below Physical Exam Constitutional: well developed and well nourished; no acute distress sitting in bed on ra Eyes: EOM intact bilaterally ENMT: Ears: no external ear abnormality Nose: no external nose abnormality Mouth: + dry oral mucous membranes Neck: no nuchal rigidity Respiratory: normal respiratory effort Auscultation: lungs clear to auscultation bilaterally and + diminished lung sounds Cardiovascular: RRR, no murmur, no edema Gastrointestinal (Abdomen): Inspection/Auscultation: normal bowel sounds Percussion/Palpation: abdomen soft; abdomen nontender Musculoskeletal: no cyanosis or clubbing, extremities motor strength 5/5 Extremities: strength 5/5 throughout Skin: no rashes, warm and dry + pallor Neurologic: bonilla, fluent speech, no tremor Psychiatric: A+Ox3, euthymic affect Genitourinary: no gaming Results & Data ([facility]) Vital Signs (Past 12 Hours) Vital Signs Temp Pulse Resp BP BP Pulse Ox 11/08/19 07:27 36.4 C L 75 17 172/82 H 96 11/08/19 03:02 36.9 C 65 17 182/81 H 94 11/07/19 23:42 36.8 C 74 19 194/81 H 99 Laboratory Results 11/08/19 05:59 11/08/19 05:59
[2019-11-08] MEDS: PANTOprazole 40 MG TAB PO SCH ×2 (08:36→20:08)
[2019-11-08] MEDS: DOCUSATE SODIUM/SENNA 50/8.6MG TAB PO SCH (08:36)
[2019-11-08] MEDS: LIOTHYRONINE SODIUM 5 MCG TAB PO SCH ×2 (08:36→20:07)
[2019-11-08] MEDS: BuPROPion SR 100 MG TABCR PO SCH (08:36)
[2019-11-08] MEDS: APIXABAN 5 MG TABLET PO SCH ×2 (08:37→20:07)
[2019-11-08] MEDS: FLECAINIDE ACETATE 100 MG TABLET PO SCH ×2 (08:37→20:09)
[2019-11-08] MEDS: INSULIN ASPART 100 UNITS/ML 3 ML PEN SC SCH ×4 (08:39→20:43)
[2019-11-08] MEDS: VERAPAMIL HCL 240 MG TABCR PO SCH (08:39)
--- NOTE | 2019-11-08 09:45 | Electrocardiogram Report ---
Test Reason : Blood Pressure : / mmHG Vent. Rate : 078 BPM Atrial Rate : 078 BPM P-R Int : 176 ms QRS Dur : 092 ms QT Int : 388 ms P-R-T Axes : 076 070 071 degrees QTc Int : 442 ms Normal sinus rhythm Normal ECG When compared with ECG of 07-NOV-2019 06:57, No significant change was found Confirmed by Mikhail Mayes ([id number]) on 11/08/2019 9:45:14 AM Referred By: REFERRED SELF Confirmed By:Mikhail Mayes
--- NOTE | 2019-11-08 12:44 | Hospitalist Progress Note ---
Date of Service November 08, 2019 Assessment & Plan (1) Chronic hyponatremia: 59-year-old female who has significant past medical history of recently diagnosed left lower lobe lung small cell carcinoma, PAF anticoagulated on Eliquis and rhythm controlled on flecainide, chronic respiratory failure secondary to emphysema on chronic 2 L of O2, RAKESH on CPAP, history of CVA without residual deficit, CAD, hypothyroidism, prediabetes, depression, schizoaffective disorder, PTSD who presents to ED at referral of her oncologist secondary to abnormal labs. Na on 10/23 was 125 and 10/11/17 130 Chronic hyponatremia with Na 118 on admission Hypotonic hypovolemia. Serum osm is 244. Uosm is 106. 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 Encourage to take protein rich diet. (2) Small cell lung cancer in adult: Recent dx Follows thoracic medicine in [place] Follows Dr. Nolasco for oncology To have port placed by Dr. Bergeron 11/11 and to begin chemo carboplatin 11/12 (3) Paroxysmal A-fib: Rate and rhythm controlled on flecanide and verapamil continue eliquis for stroke prophylaxis (4) CAD (coronary artery disease): History of stent LAD [place] [facility] [place] Continue asa, statin, lisinopril (5) COPD (chronic obstructive pulmonary disease): Emphysema with chronic respiratory failure on 2 L of O2 Continue Advair, Spiriva No acute exacerbation (6) Hypertension: Still poorly controlled Lisinopril increased to 20mg bid Continue verapamil Continue to monitor (7) RAKESH on CPAP: CPAP at bedtime (8) Pre-diabetes: Last A1c 5.7 08/13/19, now 5.8 She is on metformin 500 mg twice daily, hold while inpatient Monitor Accu-Cheks AC/HS if consistently > 180 add sliding scale coverage Insulin sliding scale for now (9) Left rib fracture: Seen and examined in ED 10/30 09/23 to fall dx nondistracted left anterior 8th and 9th rib fractures seen on the rib series conservative tx, not complaining of pain (10) Hypothyroidism: Continue levothyroxine and Cytomel TSH WNL (11) Schizoaffective disorder: Mood stable, does have mild TD sx Continue navane (12) DVT prophylaxis: Continue eliquis Asymptomatic bacteruria Patient denies any urinary symptoms at this time Urine culture grew Grp B strep Will not treat for now Admission and Anticipated Discharge Date Admission Date: November 06, 2019 Subjective Patient seen and examined Denied any symptoms Denies any dysuria, frequency, incontinence, suprapubic pain no flank pain. Denies any fevers, chills, nausea vomiting Denies any abdominal pain, diarrhea Physical Exam Constitutional: well developed and + well hydrated; no acute distress Eyes: PERRL, conjunctivae normal, anicteric sclerae ENMT: external ear and nose normal, oropharynx normal Respiratory: normal respiratory effort, lungs clear to auscultation on nasal oxygen 2l/min Cardiovascular: RRR, no murmur, no edema Gastrointestinal (Abdomen): normal bowel sounds, soft, nontender, no hepatosplenomegaly Musculoskeletal: no cyanosis or clubbing, extremities motor strength 5/5 Neurologic: PERRL, EOMI, accommodation nl, no face palsy, no dysarthria Psychiatric: A+Ox3, euthymic affect Results & Data ([facility]) Vital Signs (Past 12 Hours) Vital Signs Temp Pulse Resp BP BP Pulse Ox 11/08/19 11:39 36.9 C 76 19 153/85 H 97 11/08/19 07:27 36.4 C L 75 17 172/82 H 96 11/08/19 03:02 36.9 C 65 17 182/81 H 94 Laboratory Results Short CBC 11/08/19 Range/Units 05:59 WBC 4.48 L (4.8-10.8) K/uL Hgb 11.0 L (12.0-16.0) g/dL Hct 34.5 L (37-47) % Plt Count 301 (130-400) K/uL BMP 11/07/19 11/07/19 11/08/19 13:10 18:25 05:59 Sodium 125 L 126 L 128 L Potassium 4.0 4.1 4.2 Chloride 91 L 92 L 95 L Carbon Dioxide 28 29 27 BUN 8 8 6 L Creatinine 0.61 0.76 0.60 Glucose 107 H 106 H 97 Calcium 9.1 9.1 9.2 (1) Left rib fracture Encounter type: initial encounter Fracture type: closed Rib fracture type: multiple ribs Qualified Code(s): S22.42XA - Multiple fractures of ribs, left side, initial encounter for closed fracture
[2019-11-08 16:32] LABS: BUN Creatinine Ratio 10.2 (10-20); Calcium 9.2 mg/dl (8.5-10.1); Creatinine Clr Calc Pharmacy 75.6 ml/min; Est GFR (African American) 106.5; Est GFR (Non-African American) 91.9; Potassium 4.2 mmol/L (3.5-5.1)
[2019-11-08] MEDS: UMECLIDINIUM BROMIDE 62.5MCG/BLISTER 7 PUFFS/INHALER INH SCH (17:26)
[2019-11-08] MEDS: FLUTICASONE/VILANTEROL 100/25MCG 14 PUFFS/INHALER INH SCH (17:26)
[2019-11-08] MEDS: THIOTHIXENE 5 MG CAP PO SCH (20:08)
[2019-11-08] MEDS: MONTELUKAST SODIUM 10 MG TABLET PO SCH (20:08)
[2019-11-08] MEDS: ASPIRIN 81 MG ECTAB PO SCH (20:08)
[2019-11-08] MEDS: PRAVASTATIN SOD 40 MG TAB PO SCH (20:09)
[2019-11-08] MEDS ORDERED: lisinopriL 20 MG TAB PO SCH (21:00)
[2019-11-08] MEDS: HydrALAZINE HCL 20 MG/ML VIAL IV PRN (23:49)
[2019-11-09] MEDS: LEVOTHYROXINE SODIUM 100 MCG TABLET PO SCH (06:14)
[2019-11-09 07:03] LABS: BUN Creatinine Ratio 11.6 (10-20); Calcium 9.1 mg/dl (8.5-10.1); Creatinine Clr Calc Pharmacy 78.4 ml/min; Est GFR (African American) 109.4; Est GFR (Non-African American) 94.4; Potassium 4.2 mmol/L (3.5-5.1)
--- NOTE | 2019-11-09 07:41 | Nephrology Progress Note ---
Date of Service November 09, 2019 Assessment & Plan (1) Hyponatremia: improvement stalled but remains asx -goal sNa 133 tomorrow -cont tightened FR to 1.5 L given lasix allergy; salt tabs not an option d/t HTN -trial of ureaN; unfortunately this will be over the counter med post d/c -check bmp later today -- order in (see response as above) -continue to encourage protein rich diet /protein supplements - may need to consult dietary for best supplement Present on Admission?: Yes (2) Hypertension: on verapamil 240 mg daily and lisinopril 20 mg bid (on 10 mg daily as OP). -cont added hydralazine 5 mg IV q4h prn sbp >170 -hydralazine 10 mg tid trial -lasix allergy noted; would avoid all diuretics in this case d/t hyponatremia Present on Admission?: Yes Admission and Anticipated Discharge Date Admission Date: November 06, 2019 Subjective no events overnight; aware of new tighter FR; no sob, no edema, no n/v, no confusion; worried about making CTX appt on 11/11 Review of Systems Review of Systems: All systems reviewed & are unremarkable except as noted in HPI & below Physical Exam Constitutional: well developed and well nourished waking up in bed on Eyes: EOM intact bilaterally ENMT: Mouth: + muffled voice and + dry oral mucous membranes Neck: no nuchal rigidity Respiratory: no respiratory distress Auscultation: lungs clear to auscultation bilaterally and + diminished lung sounds Cardiovascular: Rate/Rhythm: regular rate and regular rhythm Extremities: no edema Gastrointestinal (Abdomen): normal bowel sounds, soft, nontender, no hepatosplenomegaly Neurologic: awake Speech / Cognition: normal speech bonilla, speech fluent, no tremor Psychiatric: A+Ox3, euthymic affect Results & Data ([facility]) Vital Signs (Past 12 Hours) Vital Signs Temp Pulse Pulse Resp BP BP Pulse Ox 11/09/19 07:33 36.3 C L 77 18 178/81 H 95 11/09/19 07:30 80 11/09/19 03:31 36.6 C 82 18 161/75 H 96 11/09/19 03:27 86 17 94 11/08/19 23:34 36.7 C 75 18 197/81 H 99 11/08/19 22:23 72 16 98 Laboratory Results 11/08/19 05:59 11/09/19 06:06 (1) Hypertension Hypertension type: essential hypertension Qualified Code(s): I10 - Essential (primary) hypertension
[2019-11-09] MEDS: INSULIN ASPART 100 UNITS/ML 3 ML PEN SC SCH ×4 (08:00→21:09)
[2019-11-09] MEDS: PANTOprazole 40 MG TAB PO SCH ×2 (08:01→20:29)
[2019-11-09] MEDS: APIXABAN 5 MG TABLET PO SCH ×2 (08:01→20:31)
[2019-11-09] MEDS: VERAPAMIL HCL 240 MG TABCR PO SCH (08:01)
[2019-11-09] MEDS: BuPROPion SR 100 MG TABCR PO SCH (08:01)
[2019-11-09] MEDS: FLECAINIDE ACETATE 100 MG TABLET PO SCH ×2 (08:01→20:31)
[2019-11-09] MEDS: LIOTHYRONINE SODIUM 5 MCG TAB PO SCH ×2 (08:01→20:31)
[2019-11-09] MEDS: lisinopriL 20 MG TAB PO SCH ×2 (08:01→21:11)
[2019-11-09] MEDS: DOCUSATE SODIUM/SENNA 50/8.6MG TAB PO SCH (08:02)
[2019-11-09] MEDS: LIDOCAINE 5% 1 PATCH TD SCH ×2 (08:03→20:40)
[2019-11-09] MEDS: HydrALAZINE 10 MG TAB PO SCH ×3 (08:56→20:31)
--- NOTE | 2019-11-09 12:21 | Hospitalist Progress Note ---
Date of Service November 09, 2019 Assessment & Plan (1) Chronic hyponatremia: 59-year-old female who has significant past medical history of recently diagnosed left lower lobe lung small cell carcinoma, PAF anticoagulated on Eliquis and rhythm controlled on flecainide, chronic respiratory failure secondary to emphysema on chronic 2 L of O2, RAKESH on CPAP, history of CVA without residual deficit, CAD, hypothyroidism, prediabetes, depression, schizoaffective disorder, PTSD who presents to ED at referral of her oncologist secondary to abnormal labs. Na on 10/23 was 125 and 10/11/17 130 Chronic hyponatremia with Na 118 on admission Hypotonic hypovolemia. Serum osm is 244. Uosm is 106. 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 Nolasco for oncology To have port placed by Dr. Bergeron 11/11 and to begin chemo carboplatin 11/12 (3) Paroxysmal A-fib: Rate and rhythm controlled on flecanide and verapamil continue eliquis for stroke prophylaxis (4) CAD (coronary artery disease): History of stent LAD [place] [facility] [place] Continue asa, statin, lisinopril (5) COPD (chronic obstructive pulmonary disease): Emphysema with chronic respiratory failure on 2 L of O2 Continue Advair, Spiriva No acute exacerbation (6) Hypertension: Poorly controlled Lisinopril increased to 20mg bid Hydralazine added 10mg tid Continue verapamil Continue to monitor (7) RAKESH on CPAP: CPAP at bedtime (8) Pre-diabetes: Last A1c 5.7 08/13/19, now 5.8 She is on metformin 500 mg twice daily, hold while inpatient Monitor Accu-Cheks AC/HS if consistently > 180 add sliding scale coverage Insulin sliding scale for now (9) Left rib fracture: Seen and examined in ED 10/30 09/23 to fall dx nondistracted left anterior 8th and 9th rib fractures seen on the rib series conservative tx, not complaining of pain (10) Hypothyroidism: Continue levothyroxine and Cytomel TSH WNL (11) Schizoaffective disorder: Mood stable, does have mild TD sx Continue navane (12) DVT prophylaxis: Continue eliquis Asymptomatic bacteruria Patient denied any urinary symptoms at this time Urine culture grew Grp B strep Will not treat for now Admission and Anticipated Discharge Date Admission Date: November 06, 2019 Subjective Patient seen and examined Has no complaints Physical Exam Constitutional: well developed; no acute distress Eyes: PERRL, conjunctivae normal, anicteric sclerae ENMT: external ear and nose normal, oropharynx normal Respiratory: normal respiratory effort, lungs clear to auscultation Cardiovascular: RRR, no murmur, no edema Gastrointestinal (Abdomen): normal bowel sounds, soft, nontender, no hepatosplenomegaly Neurologic: PERRL, EOMI, accommodation nl, no face palsy, no dysarthria Psychiatric: A+Ox3, euthymic affect Results & Data ([facility]) Vital Signs (Past 12 Hours) Vital Signs Temp Pulse Pulse Resp BP BP Pulse Ox 11/09/19 11:25 36.5 C 67 16 133/69 93 11/09/19 07:33 36.3 C L 77 18 178/81 H 95 11/09/19 07:30 80 11/09/19 03:31 36.6 C 82 18 161/75 H 96 11/09/19 03:27 86 17 94 Laboratory Results BMP 11/08/19 11/09/19 15:58 06:06 Sodium 126 L 127 L Potassium 4.2 4.2 Chloride 92 L 94 L Carbon Dioxide 29 28 BUN 7 8 Creatinine 0.71 0.68 Glucose 116 H 104 H Calcium 9.2 9.1 (1) Hypertension Hypertension type: essential hypertension Qualified Code(s): I10 - Essential (primary) hypertension (2) Left rib fracture Encounter type: initial encounter Fracture type: closed Rib fracture type: multiple ribs Qualified Code(s): S22.42XA - Multiple fractures of ribs, left side, initial encounter for closed fracture
[2019-11-09] MEDS: UMECLIDINIUM BROMIDE 62.5MCG/BLISTER 7 PUFFS/INHALER INH SCH (17:12)
[2019-11-09] MEDS: FLUTICASONE/VILANTEROL 100/25MCG 14 PUFFS/INHALER INH SCH (17:12)
[2019-11-09] MEDS: ASPIRIN 81 MG ECTAB PO SCH (20:29)
[2019-11-09] MEDS: MONTELUKAST SODIUM 10 MG TABLET PO SCH (20:30)
[2019-11-09] MEDS: THIOTHIXENE 5 MG CAP PO SCH (20:30)
[2019-11-09] MEDS: PRAVASTATIN SOD 40 MG TAB PO SCH (20:30)
[2019-11-09] MEDS ORDERED: ACETAMINOPHEN 325 MG TAB PO PRN (21:32)
[2019-11-10] MEDS: HydrALAZINE HCL 20 MG/ML VIAL IV PRN (05:36)
[2019-11-10] MEDS: LEVOTHYROXINE SODIUM 100 MCG TABLET PO SCH (05:36)
[2019-11-10 07:19] LABS: BUN Creatinine Ratio 12.4 (10-20); Creatinine Clr Calc Pharmacy 79.4 ml/min; Est GFR (African American) 109.4; Est GFR (Non-African American) 94.4; Potassium 4.2 mmol/L (3.5-5.1)
[2019-11-10] MEDS: INSULIN ASPART 100 UNITS/ML 3 ML PEN SC SCH ×4 (07:43→20:46)
[2019-11-10] MEDS: DOCUSATE SODIUM/SENNA 50/8.6MG TAB PO SCH (08:59)
[2019-11-10] MEDS: HydrALAZINE 10 MG TAB PO SCH ×3 (09:00→20:08)
[2019-11-10] MEDS: PANTOprazole 40 MG TAB PO SCH ×2 (09:00→20:09)
[2019-11-10] MEDS: FLECAINIDE ACETATE 100 MG TABLET PO SCH ×2 (09:00→20:07)
[2019-11-10] MEDS: APIXABAN 5 MG TABLET PO SCH ×2 (09:00→20:08)
[2019-11-10] MEDS: BuPROPion SR 100 MG TABCR PO SCH (09:00)
[2019-11-10] MEDS: LIOTHYRONINE SODIUM 5 MCG TAB PO SCH ×2 (09:00→20:07)
[2019-11-10] MEDS: VERAPAMIL HCL 240 MG TABCR PO SCH (09:00)
[2019-11-10] MEDS: LIDOCAINE 5% 1 PATCH TD SCH (09:01)
[2019-11-10] MEDS: UREA (URE-NA) 15 GM PACK PO SCH ×2 (10:12→20:06)
[2019-11-10] MEDS ORDERED: VERAPAMIL HCL 40 MG TAB PO STA (10:41)
[2019-11-10] MEDS ORDERED: VERAPAMIL HCL 40 MG TAB PO ONE (10:45)
[2019-11-10] MEDS: lisinopriL 20 MG TAB PO SCH ×2 (11:46→20:09)
[2019-11-10] MEDS: VERAPAMIL HCL 40 MG TAB PO SCH ×2 (11:47→20:10)
--- NOTE | 2019-11-10 11:47 | Hospitalist Progress Note ---
Date of Service November 10, 2019 Assessment & Plan (1) Chronic hyponatremia: 59-year-old female who has significant past medical history of recently diagnosed left lower lobe lung small cell carcinoma, PAF anticoagulated on Eliquis and rhythm controlled on flecainide, chronic respiratory failure secondary to emphysema on chronic 2 L of O2, RAKESH on CPAP, history of CVA without residual deficit, CAD, hypothyroidism, prediabetes, depression, schizoaffective disorder, PTSD who presents to ED at referral of her oncologist secondary to abnormal labs. Na on 10/23 was 125 and 10/11/17 130 Chronic hyponatremia with Na 118 on admission Hypotonic hypovolemia. Serum osm is 244. Uosm is 106. 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 Started on Urea-Na today. Patient reports allergy to lasix, hence cannot do diuretic with sodium tab Patient does have chronic asymptomatic hyponatremia. Will monitor for another 24h. If hyponatremia does not worsen, may discharge tomorrow for repeat blood work on tuesday. patient reports she has chemo on Tue. Labs may be done at the time Will need follow up with nephrology outpatient for continued management (2) Small cell lung cancer in adult: Recent dx Follows thoracic medicine in [place] Follows Dr. Nolasco for oncology To have port placed by Dr. Bergeron 11/11 and to begin chemo carboplatin 11/12 (3) Paroxysmal A-fib: Rate and rhythm controlled on flecanide and verapamil continue eliquis for stroke prophylaxis (4) CAD (coronary artery disease): History of stent LAD Follows [facility] [place] Continue asa, statin, lisinopril (5) COPD (chronic obstructive pulmonary disease): Emphysema with chronic respiratory failure on 2 L of O2 Continue Advair, Spiriva No acute exacerbation (6) Hypertension: Poorly controlled Lisinopril increased to 20mg bid Hydralazine added 10mg tid Will give additional doses of verapamil short acting and assess response. If well tolerated, AM extended release may be increased tomorrow AM Continue to monitor (7) RAKESH on CPAP: CPAP at bedtime (8) Pre-diabetes: Last A1c 5.7 08/13/19, now 5.8 She is on metformin 500 mg twice daily, hold while inpatient Monitor Accu-Cheks AC/HS if consistently > 180 add sliding scale coverage Insulin sliding scale for now (9) Left rib fracture: Seen and examined in ED 10/30 2/ to fall dx nondistracted left anterior 8th and 9th rib fractures seen on the rib series conservative tx, not complaining of pain (10) Hypothyroidism: Continue levothyroxine and Cytomel TSH WNL (11) Schizoaffective disorder: Mood stable, does have mild TD sx Continue navane (12) DVT prophylaxis: Continue eliquis Asymptomatic bacteruria Patient denied any urinary symptoms at this time Urine culture grew Grp B strep Will not treat for now Admission and Anticipated Discharge Date Admission Date: November 06, 2019 Subjective Patient seen and examined No complaints. Patient still has poorly controlled BP and hyponatremia Physical Exam Constitutional: well developed; no acute distress Eyes: PERRL, conjunctivae normal, anicteric sclerae ENMT: external ear and nose normal, oropharynx normal Respiratory: normal respiratory effort, lungs clear to auscultation Cardiovascular: RRR, no murmur, no edema Gastrointestinal (Abdomen): normal bowel sounds, soft, nontender, no hepatosplenomegaly Neurologic: PERRL, EOMI, accommodation nl, no face palsy, no dysarthria Psychiatric: A+Ox3, euthymic affect Results & Data ([facility]) Vital Signs (Past 12 Hours) Vital Signs Temp Pulse Pulse Resp BP BP Pulse Ox 11/10/19 11:32 37.2 C 83 21 151/70 H 92 11/10/19 07:42 94 H 11/10/19 07:32 37.3 C 92 H 20 157/77 H 96 11/10/19 04:59 37.1 C 92 H 18 179/84 H 94 11/10/19 03:43 90 16 94 Laboratory Results [facility] 11/10/19 06:11 Sodium 127 L Potassium 4.2 Chloride 94 L Carbon Dioxide 27 BUN 8 Creatinine 0.68 Glucose 101 H Calcium 9.0 (1) Hypertension Hypertension type: essential hypertension Qualified Code(s): I10 - Essential (primary) hypertension (2) Left rib fracture Encounter type: initial encounter Fracture type: closed Rib fracture type: multiple ribs Qualified Code(s): S22.42XA - Multiple fractures of ribs, left side, initial encounter for closed fracture
[2019-11-10] MEDS: FLUTICASONE/VILANTEROL 100/25MCG 14 PUFFS/INHALER INH SCH (16:44)
[2019-11-10] MEDS: UMECLIDINIUM BROMIDE 62.5MCG/BLISTER 7 PUFFS/INHALER INH SCH (16:44)
[2019-11-10 16:46] LABS: BUN Creatinine Ratio 34.3 (10-20); Calcium 8.8 mg/dl (8.5-10.1); Est GFR (African American) 98.1; Est GFR (Non-African American) 84.7; Potassium 4.6 mmol/L (3.5-5.1)
--- NOTE | 2019-11-10 18:00 | Nephrology Progress Note ---
Date of Service November 10, 2019 Assessment & Plan (1) Hyponatremia: improvement stalled but remains asx -goal sNa 133 tomorrow -cont tightened FR to 1.5 L given lasix allergy; salt tabs not an option d/t HTN; FR 1.5 L now and at d/c -trial of ureaN; unfortunately this will be over the counter med post d/c; pt aware -continue to encourage protein rich diet /protein supplements Dr Fields aware of pt sob >> CXR pending (2) Hypertension: on verapamil 240 mg daily and lisinopril 20 mg bid (on 10 mg daily as OP). -cont added hydralazine 5 mg IV q4h prn sbp >170 -hydralazine 10 mg tid trial -increased verapamil to 320mg daily today to start this standing in am if tolerated -lasix allergy noted; would avoid all diuretics in this case d/t hyponatremia Admission and Anticipated Discharge Date Admission Date: November 06, 2019 Subjective seen on rounds about 1740; c/o increasing sob and more weakness generally ; tolerating po ; no chest pain Review of Systems Review of Systems: All systems reviewed & are unremarkable except as noted in HPI & below Physical Exam Constitutional: well developed, well nourished and + acute distress (very sligth w/ increased wob) Eyes: EOM intact bilaterally ENMT: Ears: no external ear abnormality Nose: no external nose abnormality Mouth: + muffled voice and + dry oral mucous membranes Neck: no nuchal rigidity Respiratory: normal respiratory effort, + labored breathing and + paradoxical thoraco-abdominal movement; + not able to speak in complete sentence (stops mid sentence but can then finish) Auscultation: + diminished lung sounds Cardiovascular: RRR, no murmur, no edema Rate/Rhythm: regular rate and regular rhythm Extremities: no edema Gastrointestinal (Abdomen): normal bowel sounds, soft, nontender, no hepatosplenomegaly Inspection/Auscultation: normal bowel sounds Percussion/Palpation: abdomen soft; abdomen nontender Musculoskeletal: no cyanosis or clubbing, extremities motor strength 5/5 Extremities: strength 5/5 throughout Skin: no rashes, warm and dry + pallor Neurologic: awake Speech / Cognition: normal speech Psychiatric: A+Ox3, euthymic affect Results & Data ([facility]) Vital Signs (Past 12 Hours) Vital Signs Temp Pulse Pulse Resp BP BP Pulse Ox 11/10/19 15:16 36.7 C 70 18 126/68 91 11/10/19 14:59 81 11/10/19 14:17 80 138/76 11/10/19 11:32 37.2 C 83 21 151/70 H 92 11/10/19 07:42 94 H 11/10/19 07:32 37.3 C 92 H 20 157/77 H 96 Laboratory Results 11/08/19 05:59 11/10/19 16:03 (1) Hypertension Hypertension type: essential hypertension Qualified Code(s): I10 - Essential (primary) hypertension
--- NOTE | 2019-11-10 18:25 | XRay Report ---
XR chest 1V portable HISTORY: shortness of breath COMPARISON: Chest 11/06/2019. FINDINGS: No focal lung consolidations to suggest pneumonia. Mild interstitial prominence is likely d ue to the AP portable technique. The heart is normal in size. No pleural effusions. No pneumothorax. No evidence for pulmonary edema. IMPRESSION: No acute process. ACT 112: Negative or not required by law. Electronically signed by: Abiel Garza M.D. 11/10/2019 6:23 PM
[2019-11-10] MEDS: POLYETHYLENE (MIRALAX) 17 GM PACK PO PRN (19:36)
[2019-11-10] MEDS: THIOTHIXENE 5 MG CAP PO SCH (20:09)
[2019-11-10] MEDS: PRAVASTATIN SOD 40 MG TAB PO SCH (20:09)
[2019-11-10] MEDS: MONTELUKAST SODIUM 10 MG TABLET PO SCH (20:09)
[2019-11-10] MEDS: ASPIRIN 81 MG ECTAB PO SCH (20:09)
[2019-11-11] MEDS: LEVOTHYROXINE SODIUM 100 MCG TABLET PO SCH (05:44)
[2019-11-11 06:50] LABS: Calcium 8.8 mg/dl (8.5-10.1); Creatinine Clr Calc Pharmacy 90.3 ml/min; Est GFR (Non-African American) 98.4; Potassium 4.2 mmol/L (3.5-5.1)
[2019-11-11] MEDS: INSULIN ASPART 100 UNITS/ML 3 ML PEN SC SCH ×4 (08:25→20:28)
[2019-11-11] MEDS: APIXABAN 5 MG TABLET PO SCH ×2 (08:26→20:27)
[2019-11-11] MEDS: PANTOprazole 40 MG TAB PO SCH ×2 (08:26→20:25)
[2019-11-11] MEDS: lisinopriL 20 MG TAB PO SCH ×2 (08:26→20:26)
[2019-11-11] MEDS: LIOTHYRONINE SODIUM 5 MCG TAB PO SCH ×2 (08:26→20:25)
[2019-11-11] MEDS: DOCUSATE SODIUM/SENNA 50/8.6MG TAB PO SCH (08:26)
[2019-11-11] MEDS: UREA (URE-NA) 15 GM PACK PO SCH ×2 (08:27→20:25)
[2019-11-11] MEDS: FLECAINIDE ACETATE 100 MG TABLET PO SCH ×2 (08:27→20:26)
[2019-11-11] MEDS: BuPROPion SR 100 MG TABCR PO SCH (08:27)
[2019-11-11] MEDS: HydrALAZINE 10 MG TAB PO SCH ×3 (08:27→20:26)
[2019-11-11] MEDS: LIDOCAINE 5% 1 PATCH TD SCH (08:28)
[2019-11-11] MEDS: VERAPAMIL HCL 180 MG TABCR PO SCH (09:01)
--- NOTE | 2019-11-11 11:54 | Hospitalist Progress Note ---
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 Na on 10/23 was 125 and 10/11/17 130 Chronic hyponatremia with Na 118 on admission Hypotonic hypovolemia. Serum osm is 244. Uosm is 106. Euvolemic Likely combination of SIADH, excessive water drinking and low caloric intake Na has been improving slowly. 128 today Continue fluid restriction at 1500cc Discussed with high school band director Dr [place]. Started on Urea-Na yesterday (2) Small cell lung cancer in adult: Recent dx Follows thoracic medicine in [place] Follows Dr. Nolasco for oncology Patient was supposed to have ports placed by Dr. Bergeron on 11/11 and to begin chemo carboplatin 11/12 However, due to the coronavirus pandemic, patient outpatient port placement scheduled was canceled. I discussed this protective services case worker and Dr. Bergeron. Dr Bergeron agreed to do the port placement tomorrow prior to discharge so that patient can continue with chemo planned for 11/12 (3) Paroxysmal A-fib: Rate and rhythm controlled on flecanide and verapamil continue eliquis for stroke prophylaxis (4) CAD (coronary artery disease): History of stent LAD [place] [facility] [place] Continue asa, statin, lisinopril (5) COPD (chronic obstructive pulmonary disease): Emphysema with chronic respiratory failure on 2 L of O2 Continue Advair, Spiriva No acute exacerbation (6) Hypertension: Blood pressure is better controlled. Lisinopril increased to 20mg bid Will continue verapamil at increased dose of 360 mg ER daily on discharge (7) RAKESH on CPAP: CPAP at bedtime (8) Pre-diabetes: Last A1c 5.7 08/13/19, now 5.8 She is on metformin 500 mg twice daily, hold while inpatient Monitor Accu-Cheks AC/HS if consistently > 180 add sliding scale coverage Insulin sliding scale for now (9) Left rib fracture: Seen and examined in ED 3/11 2/2 to fall dx nondistracted left anterior 8th and 9th rib fractures seen on the rib series conservative tx, not complaining of pain (10) Hypothyroidism: Continue levothyroxine and Cytomel TSH WNL (11) Schizoaffective disorder: Mood stable, does have mild TD sx Continue navane (12) DVT prophylaxis: Continue eliquis Asymptomatic bacteruria Patient denied any urinary symptoms at this time Urine culture grew Grp B strep Will not treat for now Admission and Anticipated Discharge Date Admission Date: November 06, 2019 Subjective Patient seen and examined. Denies any complaints Physical Exam Constitutional: well developed and + well hydrated; no acute distress Eyes: PERRL, conjunctivae normal, anicteric sclerae ENMT: external ear and nose normal, oropharynx normal Respiratory: normal respiratory effort, lungs clear to auscultation Cardiovascular: RRR, no murmur, no edema Gastrointestinal (Abdomen): normal bowel sounds, soft, nontender, no hepatosplenomegaly Musculoskeletal: no cyanosis or clubbing, extremities motor strength 5/5 Neurologic: PERRL, EOMI, accommodation nl, no face palsy, no dysarthria Psychiatric: A+Ox3, euthymic affect Results & Data ([facility]) Vital Signs (Past 12 Hours) Vital Signs Temp Pulse Pulse Resp BP Pulse Ox 11/11/19 10:53 36.7 C 85 19 157/73 H 95 11/11/19 07:39 86 11/11/19 07:17 36.8 C 87 18 138/70 90 11/11/19 03:57 37.1 C 80 20 136/63 94 11/11/19 02:40 80 16 95 (1) Left rib fracture Encounter type: initial encounter Fracture type: closed Rib fracture type: multiple ribs Qualified Code(s): S22.42XA - Multiple fractures of ribs, left side, initial encounter for closed fracture (2) Hypertension Hypertension type: essential hypertension Qualified Code(s): I10 - Essential (primary) hypertension
[2019-11-11] MEDS: UMECLIDINIUM BROMIDE 62.5MCG/BLISTER 7 PUFFS/INHALER INH SCH (16:17)
[2019-11-11] MEDS: FLUTICASONE/VILANTEROL 100/25MCG 14 PUFFS/INHALER INH SCH (16:17)
[2019-11-11] MEDS: PRAVASTATIN SOD 40 MG TAB PO SCH (20:27)
[2019-11-11] MEDS: THIOTHIXENE 5 MG CAP PO SCH (20:27)
[2019-11-11] MEDS: ASPIRIN 81 MG ECTAB PO SCH (20:27)
[2019-11-11] MEDS: MONTELUKAST SODIUM 10 MG TABLET PO SCH (20:27)
[2019-11-12] MEDS: LEVOTHYROXINE SODIUM 100 MCG TABLET PO SCH (05:37)
[2019-11-12] MEDS ORDERED: fentaNYL citrate 100 MCG/2 ML VIAL IV ONE (07:22)
[2019-11-12] MEDS ORDERED: MIDAZOLAM HCL 1 MG/ML 2ML VIAL IV ONE (07:22)
[2019-11-12] MEDS ORDERED: PROPOFOL IV EMULSION 10 MG/ML 20 ML VIAL IV ONE (07:24)
[2019-11-12] MEDS ORDERED: LIDOCAINE HCL 2% 2 ML VIAL/AMP(20MG/ML) INFIL ONE (07:24)
[2019-11-12 07:26] LABS: BUN Creatinine Ratio 34.6 (10-20); Calcium 9.1 mg/dl (8.5-10.1); Creatinine Clr Calc Pharmacy 94.6 ml/min; Est GFR (Non-African American) 100.1; Potassium 4.1 mmol/L (3.5-5.1)
[2019-11-12] MEDS ORDERED: HEPARIN 100 UNIT/ML 5ML FLUSH IV ONE (07:27)
[2019-11-12] MEDS ORDERED: CEFAZOLIN 2,000 MG/15 ML IV PUSH IV ONE (07:57)
[2019-11-12] MEDS ORDERED: CEFAZOLIN 2000MG 2,000 MG/15 ML SYR IV ONE (08:14)
[2019-11-12] MEDS ORDERED: ONDANSETRON INJ 2 MG/ML 2 ML VIAL IV ONE (08:44)
[2019-11-12] MEDS ORDERED: HEPARIN 100 UNIT/ML 5ML FLUSH ONE (09:09)
[2019-11-12] MEDS ORDERED: BUPIVACAINE 0.5 % 5 MG/1 ML MPF 30ML VIAL ONE (09:09)
[2019-11-12] MEDS ORDERED: LIDOCAINE HCL 1% 20 ML VIAL ONE (09:09)
[2019-11-12] MEDS ORDERED: ATROPINE SULFATE 0.1 MG/ML 10ML SYR IV PRN (09:40)
--- NOTE | 2019-11-12 09:40 | Anesthesiology Progress Note ---
Date of Service November 12, 2019 Anesthesia Post Procedure Vital Signs Vital Signs: Temp Pulse Pulse Pulse Resp BP BP 11/12/19 09:35 36.8 C 78 17 143/79 H 11/12/19 09:25 79 18 137/64 11/12/19 09:15 79 18 139/60 11/12/19 09:07 36.4 C L 83 19 126/78 11/12/19 08:00 80 11/12/19 07:35 37 C 81 20 163/83 H 11/12/19 07:00 36.8 C 78 16 142/80 H 11/12/19 04:11 36.4 C L 76 17 146/84 H 11/12/19 03:16 70 16 11/11/19 23:41 36.9 C 71 18 137/73 11/11/19 23:18 72 16 11/11/19 22:19 65 11/11/19 19:12 36.7 C 60 20 134/75 11/11/19 16:29 64 11/11/19 15:26 36.7 C 67 20 101/63 11/11/19 14:14 112/66 11/11/19 10:53 36.7 C 85 19 157/73 H Pulse Ox 11/12/19 09:35 93 11/12/19 09:25 93 11/12/19 09:15 91 11/12/19 09:07 89 L 11/12/19 08:00 11/12/19 07:35 92 11/12/19 07:00 92 11/12/19 04:11 90 11/12/19 03:16 94 11/11/19 23:41 92 11/11/19 23:18 93 11/11/19 22:19 11/11/19 19:12 92 11/11/19 16:29 11/11/19 15:26 92 11/11/19 14:14 11/11/19 10:53 95 Pain Intensity Left Lower Ribs: Pain Intensity: 3 Transfer of Care Handoff Completed per policy Notes Mental Status: alert / awake / arousable Patient Amnestic to Procedure: Yes Nausea / Vomiting: adequately controlled Pain: adequately controlled Airway Patency, RR, SpO2: stable & adequate BP & HR: stable & adequate Hydration State: stable & adequate Anesthetic Complications: no major complications apparent
--- NOTE | 2019-11-12 09:56 | Operative Report (OR) ---
DATE OF OPERATION: 11/12/2019 PREOPERATIVE DIAGNOSIS: Lung cancer. POSTOPERATIVE DIAGNOSIS: Lung cancer. PROCEDURE: Tunneled insertion port catheter on right internal jugular vein. SURGEON: Rachael Begreron MD. ANESTHESIA: Conscious sedation plus local. ESTIMATED BLOOD LOSS: About 5 mL FINDINGS: Patent right internal jugular vein. COMPLICATIONS: None. INDICATIONS FOR THE PROCEDURE: This is a 59-year-old female who has new diagnosis of lung cancer. The patient required to do the port reinsertion, I did talk to the patient about the benefit and risk, alternate procedure. I indicated the risks may include but not limited such as bleeding, infection, blood clot, dysfunction catheter. The patient understands and she signed informed consent and I answered all questions. DETAILS OF PROCEDURE: We brought the patient to the OR, put the patient in the supine position. The patient received SCD on bilateral legs to prevent DVT. Also, patient received 2 grams Ancef IV for prophylactic antibiotic. The patient received conscious sedation by the Anesthesiology. The patient's right side upper neck and right upper chest was appropriately draped in routine sterile fashion. After timeout, I injected the local anesthesia on the right side of the neck and right upper chest by using 1% lidocaine mixed with 0.5% Marcaine. Then we used the ultrasound guide to use a 16 gauge needle, punctured the right internal jugular vein, easy blood return, passed the wire and removed the needle. Then we used the fluorescence to confirm the wire located at superior vena cava then I made about 2.5 cm incision on the right upper chest to create the approach to subcutaneous layer and hemostasis was obtained. Then we passed the catheter through the right upper chest towards the right side of neck; the end of the port catheter connected to the port. Then, we used the dilator with sheath to pass the wire, removed the wire, removed the dilator and passed the catheter through the sheath. Then we removed the sheath. Again, we used fluorescence to confirm the table catheter located junction between the right atrium and superior vena cava, then closed the incision subcutaneous layer by using 2-0 Vicryl continuous running and also before we closed the incision, we used a 2-0 Prolene to fix the port on the chest wall at 3 points. Then we used 2-0 Vicryl to close subcutaneous layer continuous running, closed skin by using 4-0 Vicryl continuous running. Then we put the dressing on. Then we used heparinized saline needle connected to the port from all sites of skin, easy blood returned and injected 10 mL heparin with saline into port. Then we put the dressing on. The patient tolerated the procedure well. All instrument, needle and sponge count were correct x2 at the end of the case. The patient transferred to recovery room in stable condition. I attest to the content of the Intraoperative Record and any orders documented therein. Any exceptions are noted below. QUEENIED
[2019-11-12] MEDS ORDERED: ONDANSETRON 4 MG OD TAB PO PRN (10:09)
[2019-11-12] MEDS ORDERED: PROCHLORPERAZINE MALEATE 10 MG TAB PO PRN (10:09)
[2019-11-12] MEDS: INSULIN ASPART 100 UNITS/ML 3 ML PEN SC SCH ×2 (10:11→12:19)
[2019-11-12] MEDS: LIDOCAINE 5% 1 PATCH TD SCH (10:12)
[2019-11-12] MEDS: DOCUSATE SODIUM/SENNA 50/8.6MG TAB PO SCH (10:13)
[2019-11-12] MEDS: HydrALAZINE 10 MG TAB PO SCH ×2 (10:13→13:51)
[2019-11-12] MEDS: PANTOprazole 40 MG TAB PO SCH (10:13)
[2019-11-12] MEDS: LIOTHYRONINE SODIUM 5 MCG TAB PO SCH (10:13)
[2019-11-12] MEDS: UREA (URE-NA) 15 GM PACK PO SCH (10:14)
[2019-11-12] MEDS: BuPROPion SR 100 MG TABCR PO SCH (10:14)
[2019-11-12] MEDS: lisinopriL 20 MG TAB PO SCH (10:14)
[2019-11-12] MEDS: VERAPAMIL HCL 180 MG TABCR PO SCH (10:14)
[2019-11-12] MEDS: FLECAINIDE ACETATE 100 MG TABLET PO SCH (10:14)
[2019-11-12] MEDS: APIXABAN 5 MG TABLET PO SCH (10:28)
--- NOTE | 2019-11-12 10:43 | Discharge Summary ---
Date of Service November 12, 2019 Admission HPI Per Admitting Provider This is a 59-year-old female who has significant past medical history of recently diagnosed left lower lobe lung small cell carcinoma, PAF anticoagulated on Eliquis and rhythm controlled on flecainide, chronic respiratory failure secondary to emphysema on chronic 2 L of O2, RAKESH on CPAP, history of CVA without residual deficit, CAD, hypothyroidism, prediabetes, depression, schizoaffective disorder, PTSD who presents to ED at referral of her oncologist secondary to abnormal labs. She was told she had low sodium and low chloride and was urged to seek ED. Of significance patiently recently diagnosed with primary left lower lobe lung small cell CA by biopsy on 10/11/2019. She had appointment with general surgery Dr. Bergeron today to arrange Mediport placement on 11/11. She had preoperative lab work-up which revealed serum sodium of 117 and was urged to seek ED. She states this is the first time she has had low sodium as she has been told this before. She does admit over the past 2 to 3 weeks she has not been drinking as much because of having appointments. He said she usually drinks 8-16 ounce bottles of water daily, but lately has only been drinking 5. She also admits to frequent falls over the past 3 months with 5 of them and occasional dizziness. She denies any fever, chills, sweats, lightheadedness, syncope, chest pain, shortness of breath, palpitations, cough, hemoptysis, nausea, vomiting, abdominal pain. She is more on the constipated side and her last BM was 2 to 3 days ago. She denies any increased frequency with urination, dysuria or hematuria. Her appetite has otherwise been decreased. She has been compliant with her medications. In ED she remained hemodynamically stable. Lab work revealed serum sodium 118, K3.8, chloride 83, BUN 5, creatinine 1.53 glucose 102, serum osmolality 244, TSH and troponin WNL, urine osmolality 106, urine sodium 16. Chest x-ray was negative for acute cardiopulmonary abnormality. Admission Exam Per Admitting Provider Constitutional: WD/WN, female, appears older than stated age, vitals as above, NAD, sitting up in bed, pleasant, conversing easily Head: Normocephalic, Atraumatic Eyes: PERRL, conjunctivae normal, anicteric sclerae ENMT: external ear and nose normal, oropharynx normal Neck: trachea midline, no thyromegaly normal visual inspection Respiratory: normal respiratory effort, lungs clear to auscultation, no wheeze, rales, rhonchi. Normal insp/exp effort, no accessory muscle use Cardiovascular: RRR, no murmur, no edema Vessels: no JVD or carotid bruit Chest: normal inspection of chest Abdomen: Obese abdomen,normal bowel sounds, soft, nontender, no hepatosplenomegaly Musculoskeletal: no cyanosis or clubbing, extremities motor strength 5/5 Skin: no rashes, warm and dry normal turgor Neurologic: PERRL, EOMI, accommodation nl, no face palsy, no dysarthria CN's II-XI intact bilaterally and moves all extremities Psychiatric: A+Ox3, euthymic affect Lymphatic: no cervical or axillary lymphadenopathy : deferred Principal Diagnosis Chronic hyponatremia Hypertension Recent diagnosis of Small cell lung cancer Asymptomatic bacteruria Discharge Exam Constitutional well developed and + well hydrated; no acute distress Eyes PERRL, conjunctivae normal, anicteric sclerae ENMT external ear and nose normal, oropharynx normal On nasal oxygen (chronically) Respiratory normal respiratory effort, lungs clear to auscultation Cardiovascular RRR, no murmur, no edema Gastrointestinal (Abdomen) normal bowel sounds, soft, nontender, no hepatosplenomegaly Musculoskeletal no cyanosis or clubbing, extremities motor strength 5/5 Neurologic PERRL, EOMI, accommodation nl, no face palsy, no dysarthria Psychiatric A+Ox3, euthymic affect Discharge Data Allergies Allergy/AdvReac Type Severity Reaction Status Date / Time Beta-Blockers Allergy Severe Confusion; Verified 11/12/19 07:53 (Beta-Adrenergic Bloc Diarrhea; Rash furosemide [From Lasix] Allergy Severe "LUNGS Verified 11/12/19 07:53 CLOSE UP" tetracycline Allergy Intermediate RASH; Verified 11/12/19 07:53 "MYCINS" ALLERGY acetaminophen Allergy Mild GI UPSET Verified 11/12/19 07:53 clindamycin Allergy Unknown "MYCINS" Verified 11/12/19 07:53 ALLERGY diltiazem Allergy Unknown ? Verified 11/12/19 07:53 Sulfa (Sulfonamide Allergy Unknown Unknown Unverified 11/12/19 07:53 Antibiotics) sumatriptan Allergy Unknown "TRIPTANS" Verified 11/12/19 07:53 ALLERGY codeine AdvReac Severe SYNCOPE Verified 11/12/19 07:53 PER PATIENT oxycodone AdvReac Mild GI UPSET Verified 11/12/19 07:53 METAL JEWELRY AdvReac Mild ITCHINESS Uncoded 11/12/19 07:53 "WITH CHEAP JEWELRY" Consultations 11/06/19 18:11 ED Decision to Admit Stat 11/06/19 19:59 Consult Case Management - Discharge Planning Routine Consult Nephrology Routine 11/12/19 07:28 Consult General Surgery Routine Procedures Performed Operation Date: 11/12/19 08:50 Actual Procedures p Mediport Placement Right Internal Jugular(Right) - Rachael Bergeron MD Hospital Course (1) Chronic hyponatremia: 59-year-old female who has significant past medical history of recently diagnosed left lower lobe lung small cell carcinoma, PAF anticoagulated on Eliquis and rhythm controlled on flecainide, chronic respiratory failure secondary to emphysema on chronic 2 L of O2, RAKESH on CPAP, history of CVA without residual deficit, CAD, hypothyroidism, prediabetes, depression, schizoaffective disorder, PTSD who presents to ED at referral of her oncologist secondary to abnormal labs. Na on 10/23 was 125 and 10/11/17 130 Chronic hyponatremia with Na 118 on admission Hypotonic hypovolemia. Serum osm is 244. Uosm is 106. Euvolemic Likely combination of SIADH, excessive water drinking and low caloric intake Na has been improving slowly. 131 today Continue fluid restriction at 1500cc at home Was started on urea-na. Patient to continue taking this at home on discharge. Provided patient with pharm details at [facility] where patient can get this tomorrow Patient gets labwork with chemo that is supposed to start tomorrow. Discussed with Dr Alford, Blasting Entry Specialist, He will follow up patient's sodium outpatient (2) Small cell lung cancer in adult: Recent dx Follows thoracic medicine in [place] Follows Dr. Nolasco for oncology Patient was supposed to have ports placed by Dr. Bergeron on 11/11 outpatient and to begin chemo carboplatin 11/12 However, due to the coronavirus pandemic, patient outpatient port placement scheduled was canceled. I discussed with Dr. Bergeron. and he had the port placed this morning. Patient discharged today to follow up with her preplanned chemotherapy from tomorrow (3) Paroxysmal A-fib: Rate and rhythm controlled on flecanide Continue eliquis for stroke prophylaxis (4) CAD (coronary artery disease): History of stent LAD [place] [facility] Continue asa, statin, lisinopril (5) COPD (chronic obstructive pulmonary disease): Emphysema with chronic respiratory failure on 2 L of O2 Continue Advair, Spiriva No acute exacerbation (6) Hypertension: Patient's blood pressure was very poorly controlled Hypertensive urgency. Adjustments were made to patient's blood pressure meds Lisinopril increased to 20mg bid Verapamil was increased dose to 360 mg ER daily (7) RAKESH on CPAP: CPAP at bedtime (8) Pre-diabetes: Last A1c 5.7 08/13/19, now 5.8 Continue home metformin 500 mg twice daily (9) Left rib fracture: Seen and examined in ED 10/30 09/23 to fall dx nondistracted left anterior 8th and 9th rib fractures seen on the rib series conservative tx, not complaining of pain (10) Hypothyroidism: Continue levothyroxine and Cytomel TSH WNL (11) Schizoaffective disorder: Mood stable, does have mild TD sx Continue navane Asymptomatic bacteruria Patient denied any urinary symptoms at this time Urine culture grew Grp B strep Will not treat for now Total Time Total Time Spent Total Time Spent (In Minutes): 50 Total Time Includes: Examination of the Patient, Discharge Planning, Medication Reconciliation and Communication With Other Providers Discharge Plan Discharge Items Patient Disposition: Home - Self-Care Reason For Visit: HYPONATREMIA Discharge Diagnosis: Hyponatremia Asymptomatic bacteruria Condition on Discharge: Good Activity: Resume your previous activity Non-emergency contact: Primary Care Provider and Blasting Entry Specialist Call non-emergency contact if: you have any medication questions Follow-up/Referrals: Dmitry Roland DO [Primary Care Provider] - 11/16/19 9:50 am (11/16/2019 9:50 AM Provider Michaela Anglin DO [facility] ) Diet: Regular Fluids: 2000ml (8 cups) Addtl Attending Provider Instructions: Ms Doran You were sent to the hospital due to very low sodium levels. You were evaluated and treated for this. Your sodium level improved It is important you monitor how much you drink and not take more [id number] per day. Eat high protein diet as we discussed Please continue to follow up with your doctors. You also got port placed for your planned chemotherapy for your lung cancer. It was a pleasure taking care of you. Pending Studies at Discharge: No Stand-Alone Forms: My [facility], Smoking Cessation Medications and DC Order Prescriptions: New lisinopril 20 mg Tablet 20 mg PO BID 30 Days Qty: 60 RF: 0 sennosides-docusate sodium [Senokot-S] 8.6-50 mg Tablet 1 tab PO QAM PRN (Reason: constipation) Qty: 30 RF: 0 verapamil 360 mg capsule,ext rel. pellets 24 hr 360 mg PO DAILY Qty: 30 RF: 0 urea 15 gram powder in packet 1 pkt PO DAILY 14 Days Qty: 8 RF: 0 Continued ipratropium-albuterol 0.5 mg-3 mg(2.5 mg base)/3 mL solution for nebulization 3 ml inhalation Q4H PRN (Reason: Shortness Of Breath Or Wheezing) RF: 0 apixaban 5 mg tablet 5 mg PO BID Qty: 180 RF: 0 flecainide 100 mg tablet 100 mg PO BID Qty: 180 RF: 0 liothyronine 5 mcg tablet 5 mcg PO BID RF: 0 levothyroxine 100 mcg tablet 100 mcg PO DAILYBB RF: 0 metformin 500 mg tablet 500 mg PO BID RF: 0 omeprazole 20 mg capsule,delayed release(DR/EC) 20 mg PO BID RF: 0 pravastatin 40 mg tablet 80 mg PO HS Qty: 180 RF: 0 montelukast 10 mg tablet 10 mg PO HS RF: 0 thiothixene 5 mg capsule 5 mg PO HS RF: 0 fluticasone propion-salmeterol [Advair Diskus] 250-50 mcg/dose blister with device 1 puffs INH QDD RF: 0 albuterol sulfate [Ventolin HFA] 90 mcg/actuation HFA aerosol inhaler 1 puffs INH .COMPLEX PRN (Reason: Shortness Of Breath Or Wheezing) RF: 0 bupropion HCl 200 mg tablet sustained-release 12 hr 200 mg PO QAM RF: 0 aspirin 81 mg Tablet,Delayed Release (Dr/Ec) 81 mg PO HS RF: 0 Spiriva with HandiHaler 18 mcg capsule, w/inhalation device 18 mcg INHALATION QDD RF: 0 ondansetron HCl 8 mg tablet 8 mg PO UD PRN (Reason: nausea/vomiting) RF: 0 prochlorperazine maleate [Compazine] 10 mg tablet 10 mg PO UD PRN (Reason: Nausea) RF: 0 Discontinued lisinopril 10 mg tablet 10 mg PO HS Qty: 90 RF: 0 verapamil 240 mg tablet extended release 240 mg PO QAM RF: 0 Discharge Orders: Discharge Order (Routine); Ordered 11/12/19 Ordered By: Cindy Santiago/Other Patient Handouts: Vascular Access Port Implantation, Urea oral solution Admission Data Admit Date/Time: 11/06/19 18:13 Attending Provider: Cindy Fields I. Admit Provider: Jarrod Rodriges Primary Care Provider: Dmitry Roland Other Providers: Jarrod Rodriges ; Donavan Matson ; Rachael Bergeron Other Interventions: Discharge Summary Assessment (RN) Last Done: 11/12/19 13:51
--- NOTE | 2019-11-12 10:55 | Nephrology Progress Note ---
Date of Service November 12, 2019 Assessment & Plan (1) Hyponatremia: improvement stalled but remains asx. na at 131 today -cont tightened FR to 1.2 L given lasix allergy; salt tabs not an option d/t HTN; FR 1.5 L now and at d/c -trial of ureaN; unfortunately this will be over the counter med post d/c; pt aware. -If patient can not afford the cost for Corona bid, will try 15g once daily with 1.2 litre fluid restriction. Case management also following up. -continue to encourage protein rich diet /protein supplements -BMP weekly by hem/Onc to be copied to Nephrology. Dr Fields aware (2) Hypertension: Controlled on current medications. Admission and Anticipated Discharge Date Admission Date: November 06, 2019 Subjective Patient had a port placed this morning. No new complaints Review of Systems Review of Systems: All systems reviewed & are unremarkable except as noted in HPI & below Physical Exam Physical Exam: General exam: Appears comfortable, no acute distress HEENT: Pupils are equal and reactive to light Neck: No JVD, neck is supple trachea is midline Respiratory system: Clear breath sounds bilaterally. Gastrointestinal: Abdomen is soft, non distended, non tender, bowel sounds are present CVS: Regular rate and rhythm. No murmurs, rubs or gallops Musculoskeletal: No joint or muscle tenderness Extremities: Non tender, no edema, peripheral pulses are present Neuro: Oriented, no tremors, no focal neurological deficits Skin: No rashes Results & Data ([facility]) Vital Signs (Past 12 Hours) Vital Signs Temp Pulse Pulse Pulse Resp BP Pulse Ox 11/12/19 10:20 82 20 133/75 90 11/12/19 10:10 36.8 C 80 18 133/75 93 11/12/19 09:45 36.8 C 78 14 144/80 H 92 11/12/19 09:35 36.8 C 78 17 143/79 H 93 11/12/19 09:25 79 18 137/64 93 11/12/19 09:15 79 18 139/60 91 11/12/19 09:07 36.4 C L 83 19 126/78 89 L 11/12/19 08:00 80 11/12/19 07:35 37 C 81 20 163/83 H 92 11/12/19 07:00 36.8 C 78 16 142/80 H 92 11/12/19 04:11 36.4 C L 76 17 146/84 H 90 11/12/19 03:16 70 16 94 11/11/19 23:41 36.9 C 71 18 137/73 92 11/11/19 23:18 72 16 93 Laboratory Results 11/12/19 05:55 (1) Hypertension Hypertension type: essential hypertension Qualified Code(s): I10 - Essential (primary) hypertension
[2019-11-12 11:40] VITALS: TEMP 97.9
[2019-11-12 13:53] VITALS: BP 122/72; PULSE 85; O2SAT 91
[2019-11-12] MEDS ORDERED: METFORMIN HCL 500 MG TAB PO SCH (21:00)
[2019-11-12] MEDS ORDERED: lisinopriL 10 MG TAB PO SCH (21:00)
[2019-11-13] MEDS ORDERED: VERAPAMIL HCL 240 MG TABCR PO SCH (09:00)
== END 2019-11-12 15:00 | disposition home or self-care (01) | DRG 644 ==
LOC: ED 16:57 → SUATTDRO 18:13 → 2S 18:13

== ENCOUNTER 2019-11-13 12:38 | Inpatient (IN) ==
[2019-11-13] MEDS ORDERED: SODIUM CHLORIDE 0.9% 500 ML IV ONE (12:56)
[2019-11-13 13:25] LABS: Basophils # (auto) 0.01 K/uL (0-0.2); Basophils % (auto) 0.2 %; Eosinophils # (auto) 0.02 K/uL (0-0.5); Eosinophils % (auto) 0.4 %; Hematocrit (blood only) 30.8 % (37-47); Hemoglobin 9.8 g/dL (12.0-16.0); Immature Granulocytes # (auto) 0.01 K/uL (0.00-0.02); Immature Granulocytes % (auto) 0.2 %; Lymphocytes # (auto) 0.75 K/uL (1.2-3.4); Lymphocytes % (auto) 13.3 %; Mean Corpuscular Hemoglobin 22.2 pg (25-34); Mean Corpuscular Hgb Conc 31.8 g/dL (32-36); Mean Corpuscular Volume 69.8 fL (80-100); Mean Platelet Volume 9.5 fL (7.4-10.4); Monocytes # (auto) 0.63 K/uL (0.11-0.59); Monocytes % (auto) 11.2 %; Neutrophils # (auto) 4.21 K/uL (1.4-6.5); Neutrophils % (auto) 74.7 %; Platelet Count 241 K/uL (130-400); RDW Coefficient of Variation 17.7 % (11.5-14.5); RDW Standard Deviation 45.5 fL (36.4-46.3); Red Blood Count 4.41 M/uL (4.2-5.4); White Blood Count 5.63 K/uL (4.8-10.8)
[2019-11-13 13:38] LABS: INR 1.1 (0.9-1.1); Partial Thromboplastin Ratio 1.4; Partial Thromboplastin Time 38.5 Seconds (21.0-31.0); Prothrombin Time 11.8 Seconds (9.0-12.0)
[2019-11-13 13:44] LABS: Albumin Level 2.9 gm/dl (3.4-5.0); BUN Creatinine Ratio 27.6 (10-20); Calcium 8.8 mg/dl (8.5-10.1); Creatinine Clr Calc Pharmacy 83.4 ml/min; Est GFR (African American) 110.5; Est GFR (Non-African American) 95.3; Magnesium 2.1 mg/dl (1.8-2.4); Microcytosis Present; Ovalocytes 1+; Potassium 4.5 mmol/L (3.5-5.1)
[2019-11-13 13:58] LABS: Albumin Globulin Ratio 0.7 (0.9-2); Bilirubin Direct 0.1 mg/dl (0-0.2); Bilirubin,Total 0.2 mg/dl (0.2-1); Globulin 4.1 gm/dl (2.5-4.0); Phosphorus 3.6 mg/dl (2.5-4.9); Thyroid Stimulating Hormone 3.02 uIu/ml (0.300-4.500); Troponin I 0.399 ng/ml (0-0.045)
--- NOTE | 2019-11-13 13:58 | XRay Report ---
XR chest 1V portable HISTORY: SEPSIS COMPARISON: Chest 11/12/2019. FINDINGS: No pneumothorax. No pleural effusions. The heart is normal in size. Mild diffuse interstiti al thickening has slightly progressed. No new focal lung consolidations to suggest pneumonia. No evid ence for pulmonary edema. Right jugular Port-A-Cath terminates in the proximal SVC. This remains unch anged. IMPRESSION: Progression of the mild interstitial thickening. This may represent mild congestive change on the carmelo k[place] of chronic interstitial lung disease. ACT 112: Negative or not required by law. Electronically signed by: Abiel Garza M.D. 11/13/2019 1:57 PM
--- NOTE | 2019-11-13 14:33 | Electrocardiogram Report ---
Test Reason : Blood Pressure : / mmHG Vent. Rate : 090 BPM Atrial Rate : 090 BPM P-R Int : 196 ms QRS Dur : 096 ms QT Int : 348 ms P-R-T Axes : 072 077 068 degrees QTc Int : 425 ms Normal sinus rhythm Normal ECG When compared with ECG of 08-NOV-2019 06:13, No significant change was found Confirmed by Get Nick ([id number]) on 11/13/2019 2:32:33 PM Referred By: ED Confirmed By:Andre Nick
[2019-11-13] MEDS ORDERED: OPTIRAY 320 125ml IV PRN (15:23)
--- NOTE | 2019-11-13 15:35 | CT Scan Report ---
CT SCAN OF THE BRAIN WITHOUT IV CONTRAST CLINICAL HISTORY: Change in mental status. History of lung cancer. COMPARISON STUDY: CT of the brain dated 04/20/2018. MRI of the brain dated 05/27/2017. TECHNIQUE: Unenhanced axial CT scan of the brain is performed from the vertex to the skull base. A do se lowering technique was utilized adhering to the principles of ALARA. The skull base was scanned tw ice due to motion artifact. FINDINGS: Brain parenchyma: There is advanced confluent change seen throughout the subcortical and periventricu lar White matter. There is no hemorrhage, mass effect, or evidence of acute territorial ischemia by C T criteria. A chronic lacunar infarct is noted in the left basal ganglia and. Leone-white matter diffe rentiation is preserved. No extra-axial fluid collection is seen. Ventricles, sulci, cisterns: Prominent secondary to involutional change. Intracranial vasculature: There is atherosclerotic calcification of the cavernous carotid and vertebr al arteries. Calvarium: Unremarkable. Sinuses and mastoids: The visualized paranasal sinuses are clear. The mastoid air cells are well pneu matized. Orbits: The bony orbits are grossly intact. There are bilateral ocular lens implants. IMPRESSION: 1. There is no hemorrhage, mass effect, or evidence of acute territorial ischemia by CT criteria. 2. Advanced confluent change throughout the subcortical and periventricular white matter likely repre sents microangiopathic disease. This could also represent treatment related change if there has been a history of brain radiation. This is unchanged from prior studies and clinical correlation will be e ssential. ACT 112: Negative or not required by law. Electronically signed by: Tan Ruiz M.D. 11/13/2019 3:34 PM
--- NOTE | 2019-11-13 15:44 | Emergency Department Note ---
ED Provider Note NAME: ROBERT TERRAZAS AGE: 59 SEX: F ARRIVES VIA: Ambulance INFORMANT: Patient, ED PROVIDER(S): Thad Bergeron MD CHIEF COMPLAINT: Confusion MEDICAL DECISION MAKING: The patient is a pleasant 59-year-old woman with a past medical history of left lower lobe small cell lung cancer, PAF on Eliquis and flecainide, chronic respiratory failure secondary to emphysema on chronic 2 L nasal cannula, RAKESH on CPAP, history of CVA without residual deficit, CAD, hypothyroidism, prediabetes, depression, schizoaffective disorder, PTSD who presents emergency department for evaluation of intermittent confusion which family noticed today in the setting of being evaluated for possible initiation of chemotherapy today but was deferred given temperature of 99.8 and report of elevated liver function test with plan to reassess tomorrow for treatment and discharged home but seen by family were concerned that she was more confused and wondered if she may have had a "stroke". On arrival the patient is chronically ill-appearing but no acute distress, afebrile stable vital signs. She is mentating normally at this time without confusion. EKG without overt acute ischemia. Chest x-ray with mild progression of interstitial thickening and otherwise no acute process. WBC and platelets within normal limits. H/H 9.8/30.8 lately decreased from last week. Sodium 124 on lower end of range of patient's recent values. History without acidosis. Lactate 1.3, within normal limits. AST 62 slightly elevated from previous normal value however LFTs otherwise unremarkable. Troponin is elevated at 0.399 without prior elevations documented. TSH within normal limits. CT head negative for acute process and similar to prior. CT of the chest negative for PE or focal infiltrates. The patient's previous the identified left lower lobe SC LC is again seen. CT abdomen pelvis negative for acute process. Given the patient's elevated troponin reasonable admit the patient for further management and monitoring of symptoms. Case was discussed with John Marquez PA-C working with Dr. Fields, John hospitalist, who will evaluate the patient for admission. Triage Nursing notes reviewed and agree them. Prior medical records reviewed Vital Signs: reviewed and remarkable for hypertension Differential diagnosis: Infection, hypoglycemia, electrolyte abnormalities, overdose, toxicologic, cardiac sources, intracerebral event, neurologic, trauma, as well as other pathologies. ER treatment provided: See Below. Diagnostics interpreted by me: ECG: Normal sinus rhythm, 90 bpm, normal axis, no ST elevation or depression, QTC 425, QRS 96. Cardiac Monitoring: Normal sinus rhythm, 90 bpm, no ectopy. Laboratory studies: See below Imaging studies: XR chest 1V portable HISTORY: SEPSIS COMPARISON: Chest 11/12/2019. FINDINGS: No pneumothorax. No pleural effusions. The heart is normal in size. Mild diffuse interstitial thickening has slightly progressed. No new focal lung consolidations to suggest pneumonia. No evidence for pulmonary edema. Right jugular Port-A-Cath terminates in the proximal SVC. This remains unchanged. IMPRESSION: Progression of the mild interstitial thickening. This may represent mild congestive change on the background of chronic interstitial lung disease. -- CT SCAN OF THE BRAIN WITHOUT IV CONTRAST CLINICAL HISTORY: Change in mental status. History of lung cancer. COMPARISON STUDY: CT of the brain dated 04/20/2018. MRI of the brain dated 05/27/2017. TECHNIQUE: Unenhanced axial CT scan of the brain is performed from the vertex to the skull base. A dose lowering technique was utilized adhering to the principles of ALARA. The skull base was scanned twice due to motion artifact. FINDINGS: Brain parenchyma: There is advanced confluent change seen throughout the sub cortical and periventricular White matter. There is no hemorrhage, mass effect, or evidence of acute territorial ischemia by CT criteria. A chronic lacunar infarct is noted in the left basal ganglia and. Leone-white matter differentiation is preserved. No extra-axial fluid collection is seen. Ventricles, sulci, cisterns: Prominent secondary to involutional change. Intracranial vasculature: There is atherosclerotic calcification of the cavernous carotid and vertebral arteries. Calvarium: Unremarkable. Sinuses and mastoids: The visualized paranasal sinuses are clear. The mastoid air cells are well pneumatized. Orbits: The bony orbits are grossly intact. There are bilateral ocular lens impl ants. IMPRESSION: 1. There is no hemorrhage, mass effect, or evidence of acute territorial ischem ia by CT criteria. 2. Advanced confluent change throughout the subcortical and periventricular whit e matter likely represents microangiopathic disease. This could also represent treatment related change if there has been a history of brain radiation. This is unchanged from prior studies and clinical correlation will be essential. -- Consultation(s): None HPI: The patient is a pleasant 59-year-old woman with a past medical history of left lower lobe small cell lung cancer, PAF on Eliquis and flecainide, chronic respiratory failure secondary to emphysema on chronic 2 L nasal cannula, RAKESH on CPAP, history of CVA without residual deficit, CAD, hypothyroidism, prediabetes, depression, schizoaffective disorder, PTSD who presents emergency department for evaluation of intermittent confusion which family noticed today in the setting of being evaluated for possible initiation of chemotherapy today but was deferred given temperature of 99.8 and report of elevated liver function test with plan to reassess tomorrow for treatment and discharged home but seen by family were concerned that she was more confused and wondered if she may have had a "stroke". The details of the patient's confusion are unclear but per the patient's report he had missed her medications today and did not eat breakfast which is not normal for her. However, patient family did call to check on the patient and again expressed her concern that she was confused to the degree that they were worried she had a stroke. Patient denies any confusion at this time, chest pain or new shortness of breath. She denies nausea, vomiting, diarrhea. ROS: See above HPI for pertinent positives & negatives. A total of 10 systems reviewed and were otherwise negative. PAST MEDICAL HISTORY:See Below PAST SURGICAL HISTORY:See Below FAMILY HISTORY:See Below SOCIAL HISTORY:See Below HOME MEDICATIONS:See Below ALLERGIES:See Below VITALS:See Below PHYSICAL EXAMINATION: GENERAL: Awake, alert, chronically ill-appearing, in no distress HENT: Normocephalic, atraumatic. Oropharynx with dry mucous membranes and otherwise unremarkable. EYES: Normal conjunctiva. Sclera non-icteric. NECK: Supple. No nuchal rigidity. FROM. No JVD. RESPIRATORY: Diminished breath sounds at the bases with diminished breath sounds of the left lung field. CARDIAC: Regular rate, normal rhythm. Extremities warm and well perfused. Pulses equal. ABDOMEN: Soft, non-distended. No tenderness to palpation. No rebound or guarding. No masses. RECTAL: Deferred. MUSCULOSKELETAL: Chest examination reveals no tenderness. The back is symmetrical on inspection without obvious abnormality. There is no CVA tenderness to palpation. No joint edema. LOWER EXTREMITIES: Calves are equal size bilaterally and non-tender. No edema. No discoloration. NEURO: Normal sensorium. No sensory or motor deficits noted. 5/5 strength and SILT x 4 extremities. Cerebellar function intact including [id number], alternating palms, [id number]. SKIN: No rash or jaundice noted. Thad Bergeron MD Impression & Plan Small cell lung cancer in adult, Hyponatremia, Intermittent confusion, Elevated troponin Past Med/Surg History Medical History Abnormal mammography CAD (coronary artery disease) Chronic cerebral ischemia Common migraine without aura Contusion of left hip (Resolved) COPD (chronic obstructive pulmonary disease) On oxygen Depression Diaphragmatic hernia Diverticulosis of colon Dizziness DS (disseminated sclerosis) Dyslipidemia Dysmetabolic syndrome X Eczema GERD (gastroesophageal reflux disease) Hearing loss Hyponatremia Hypothyroidism Memory loss Migraines Neuropathy Non-occlusive coronary artery disease RAKESH on CPAP Osteoporosis, unspecified Paroxysmal A-fib Pre-diabetes Schizoaffective disorder Unspecified osteomyelitis, ankle and foot Surgical History History of bunionectomy History of colonoscopy History of coronary angioplasty Stent by Dr. 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[place] Required: No Beliefs That Will Affect Care: None marital status: Single Current Living Situation: Alone Current Living Situation Comment: Son and grandchild Other Information That Helps Us Care for You: No Feels Safe at Home: Yes Safety Concerns: Feels Safe At This Time Smoking Status: Former smoker Do You Dip or Chew Tobacco: No ; Second Hand Exposure: No ; Tobacco Cessation Education Requested by Patient: No Hx Alcohol Use: Yes Alcohol Intake Frequency: Rarely Hx Substance Use: No Results & Data (ED) Vital Signs Vital Signs - 24 hr 11/13/19 12:42 11/13/19 12:45 11/13/19 12:47 Temperature 36.8 C Temperature Source Oral Pulse Rate 90 94 H 89 Pulse Rate from SpO2 Sensor 91 H 89 Respiratory Rate 23 30 H 25 H Respiratory Depth Shallow Respiratory Pattern Tachypnea Blood Pressure 158/85 H 158/85 H Blood Pressure Mean 104 109 Blood Pressure Position Sitting Pulse Oximetry 95 94 95 Oxygen Delivery Method Nasal Cannula Oxygen Flow Rate 2 Sepsis Recent Fever Within 48 Hours Yes Sepsis Action Taken by Nursing No Action Required 11/13/19 12:50 11/13/19 13:00 11/13/19 13:10 Temperature Temperature Source Pulse Rate 87 86 88 Pulse Rate from SpO2 Sensor 87 86 Respiratory Rate 21 22 29 H Respiratory Depth Respiratory Pattern Blood Pressure Blood Pressure Mean Blood Pressure Position Pulse Oximetry 95 94 Oxygen Delivery Method Oxygen Flow Rate Sepsis Recent Fever Within 48 Hours Sepsis Action Taken by Nursing 11/13/19 13:12 11/13/19 13:15 11/13/19 13:20 Temperature Temperature Source Pulse Rate 87 87 Pulse Rate from SpO2 Sensor 89 88 Respiratory Rate 23 22 Respiratory Depth Respiratory Pattern Blood Pressure 165/91 H Blood Pressure Mean 127 Blood Pressure Position Pulse Oximetry 92 96 95 Oxygen Delivery Method Nasal Cannula Oxygen Flow Rate 2 Sepsis Recent Fever Within 48 Hours Sepsis Action Taken by Nursing 11/13/19 13:30 11/13/19 13:40 11/13/19 13:45 Temperature Temperature Source Pulse Rate 88 87 88 Pulse Rate from SpO2 Sensor 88 87 88 Respiratory Rate 20 19 20 Respiratory Depth Respiratory Pattern Blood Pressure 159/83 H 169/88 H Blood Pressure Mean 89 119 Blood Pressure Position Pulse Oximetry 95 96 94 Oxygen Delivery Method Oxygen Flow Rate Sepsis Recent Fever Within 48 Hours Sepsis Action Taken by Nursing 11/13/19 13:50 11/13/19 14:00 11/13/19 14:01 Temperature Temperature Source Pulse Rate 88 88 90 Pulse Rate from SpO2 Sensor 88 88 89 Respiratory Rate 20 21 22 Respiratory Depth Respiratory Pattern Blood Pressure 171/89 H Blood Pressure Mean 121 Blood Pressure Position Pulse Oximetry 94 94 93 Oxygen Delivery Method Oxygen Flow Rate Sepsis Recent Fever Within 48 Hours Sepsis Action Taken by Nursing 11/13/19 14:10 11/13/19 14:15 11/13/19 14:20 Temperature Temperature Source Pulse Rate 88 87 88 Pulse Rate from SpO2 Sensor 88 89 88 Respiratory Rate 21 20 20 Respiratory Depth Respiratory Pattern Blood Pressure 154/87 H Blood Pressure Mean 103 Blood Pressure Position Pulse Oximetry 95 93 94 Oxygen Delivery Method Oxygen Flow Rate Sepsis Recent Fever Within 48 Hours Sepsis Action Taken by Nursing 11/13/19 14:30 11/13/19 14:31 11/13/19 14:40 Temperature Temperature Source Pulse Rate 87 87 88 Pulse Rate from SpO2 Sensor 88 88 87 Respiratory Rate 20 20 20 Respiratory Depth Respiratory Pattern Blood Pressure 173/81 H Blood Pressure Mean 111 Blood Pressure Position Pulse Oximetry 94 94 94 Oxygen Delivery Method Oxygen Flow Rate Sepsis Recent Fever Within 48 Hours Sepsis Action Taken by Nursing 11/13/19 14:45 11/13/19 14:50 11/13/19 15:00 Temperature Temperature Source Pulse Rate 89 87 87 Pulse Rate from SpO2 Sensor 89 88 86 Respiratory Rate 24 21 24 Respiratory Depth Respiratory Pattern Blood Pressure 158/85 H 152/94 H Blood Pressure Mean 93 113 Blood Pressure Position Pulse Oximetry 94 96 96 Oxygen Delivery Method Oxygen Flow Rate Sepsis Recent Fever Within 48 Hours Sepsis Action Taken by Nursing 11/13/19 15:10 11/13/19 15:15 11/13/19 15:33 Temperature Temperature Source Pulse Rate 87 87 88 Pulse Rate from SpO2 Sensor 87 88 Respiratory Rate 22 25 H 22 Respiratory Depth Respiratory Pattern Blood Pressure 154/90 H Blood Pressure Mean 126 Blood Pressure Position Pulse Oximetry 91 92 Oxygen Delivery Method Oxygen Flow Rate Sepsis Recent Fever Within 48 Hours Sepsis Action Taken by Nursing 11/13/19 15:40 11/13/19 15:46 11/13/19 15:50 Temperature Temperature Source Pulse Rate 83 85 84 Pulse Rate from SpO2 Sensor 87 84 Respiratory Rate 22 26 H 24 Respiratory Depth Respiratory Pattern Blood Pressure 181/103 H Blood Pressure Mean 130 Blood Pressure Position Pulse Oximetry 97 98 Oxygen Delivery Method Oxygen Flow Rate Sepsis Recent Fever Within 48 Hours Sepsis Action Taken by Nursing 11/13/19 16:00 11/13/19 16:10 11/13/19 16:15 Temperature Temperature Source Pulse Rate 84 84 85 Pulse Rate from SpO2 Sensor 86 83 85 Respiratory Rate 23 25 H 20 Respiratory Depth Respiratory Pattern Blood Pressure 174/107 H Blood Pressure Mean 127 Blood Pressure Position Pulse Oximetry 99 100 100 Oxygen Delivery Method Oxygen Flow Rate Sepsis Recent Fever Within 48 Hours Sepsis Action Taken by Nursing 11/13/19 16:20 11/13/19 16:30 11/13/19 16:40 Temperature Temperature Source Pulse Rate 83 83 84 Pulse Rate from SpO2 Sensor 83 82 85 Respiratory Rate 23 23 33 H Respiratory Depth Respiratory Pattern Blood Pressure 177/91 H Blood Pressure Mean 116 Blood Pressure Position Pulse Oximetry 100 100 100 Oxygen Delivery Method Oxygen Flow Rate Sepsis Recent Fever Within 48 Hours Sepsis Action Taken by Nursing 11/13/19 16:50 11/13/19 17:02 11/13/19 17:10 Temperature Temperature Source Pulse Rate 86 114 H 86 Pulse Rate from SpO2 Sensor 86 87 Respiratory Rate 28 H 31 H 18 Respiratory Depth Respiratory Pattern Blood Pressure Blood Pressure Mean Blood Pressure Position Pulse Oximetry 100 94 Oxygen Delivery Method Oxygen Flow Rate Sepsis Recent Fever Within 48 Hours Sepsis Action Taken by Nursing 11/13/19 17:17 11/13/19 17:20 11/13/19 17:30 Temperature Temperature Source Pulse Rate 84 84 86 Pulse Rate from SpO2 Sensor 84 84 81 Respiratory Rate 20 22 15 Respiratory Depth Respiratory Pattern Blood Pressure 197/117 H Blood Pressure Mean 159 Blood Pressure Position Pulse Oximetry 97 97 93 Oxygen Delivery Method Nasal Cannula Oxygen Flow Rate 2 Sepsis Recent Fever Within 48 Hours Sepsis Action Taken by Nursing 11/13/19 17:35 11/13/19 17:37 Temperature Temperature Source Pulse Rate 85 85 Pulse Rate from SpO2 Sensor 85 86 Respiratory Rate 20 21 Respiratory Depth Respiratory Pattern Blood Pressure 165/71 H Blood Pressure Mean 105 Blood Pressure Position Pulse Oximetry 98 99 Oxygen Delivery Method Oxygen Flow Rate Sepsis Recent Fever Within 48 Hours Sepsis Action Taken by Nursing Laboratory Data Attestation: I reviewed the patient's lab results. Result diagrams: 11/13/19 13:05 11/13/19 13:05 Lab Results 11/13/19 11/13/19 11/13/19 Range/Units 13:05 13:05 13:05 WBC 5.63 (4.8-10.8) K/uL RBC 4.41 (4.2-5.4) M/uL Hgb 9.8 L (12.0-16.0) g/dL Hct 30.8 L (37-47) % MCV 69.8 L (80-100) fL MCH 22.2 L (25-34) pg MCHC 31.8 L (32-36) g/dL RDW Std Deviation 45.5 (36.4-46.3) fL RDW Coeff of Chepe 17.7 H (11.5-14.5) % Plt Count 241 (130-400) K/uL MPV 9.5 (7.4-10.4) fL Immature Gran % (Auto) 0.2 % Neut % (Auto) 74.7 % Lymph % (Auto) 13.3 % [place] % (Auto) 11.2 % Eos % (Auto) 0.4 % Baso % (Auto) 0.2 % Immature Gran # (Auto) 0.01 (0.00-0.02) K/uL Neut # (Auto) 4.21 (1.4-6.5) K/uL Lymph # (Auto) 0.75 L (1.2-3.4) K/uL [place] # (Auto) 0.63 H (0.11-0.59) K/uL Eos # (Auto) 0.02 (0-0.5) K/uL Baso # (Auto) 0.01 (0-0.2) K/uL Microcytosis Present Ovalocytes 1+ PT 11.8 (9.0-12.0) Seconds INR 1.1 (0.9-1.1) APTT 38.5 H (21.0-31.0) Seconds PTT Ratio 1.4 Sodium 124 L D (136-145) mmol/L Potassium 4.5 (3.5-5.1) mmol/L Chloride 94 L (98-107) mmol/L Carbon Dioxide 26 (21-32) mmol/L Anion Gap 4.0 (3-11) BUN 18 (7-18) mg/dl Creatinine 0.66 (0.6-1.2) mg/dl Est Cr Clr Drug Dosing 83.4 ml/min Est GFR ( Amer) 110.5 Est GFR (Non-Af Amer) 95.3 BUN/Creatinine Ratio 27.6 H (10-20) Glucose 108 H (70-99) mg/dl Osmolality (280-300) mOsm/kg Lactate (0.4-2.0) mmol/L Calcium 8.8 (8.5-10.1) mg/dl Phosphorus 3.6 (2.5-4.9) mg/dl Magnesium 2.1 (1.8-2.4) mg/dl Total Bilirubin 0.2 (0.2-1) mg/dl Direct Bilirubin 0.1 (0-0.2) mg/dl AST 60 H (15-37) U/L ALT 60 (12-78) U/L Alkaline Phosphatase 114 (45-117) U/L Troponin I 0.399 H* (0-0.045) ng/ml Total Protein 7.0 (6.4-8.2) gm/dl Albumin 2.9 L (3.4-5.0) gm/dl Globulin 4.1 H (2.5-4.0) gm/dl Albumin/Globulin Ratio 0.7 L (0.9-2) TSH 3.020 (0.300-4.500) uIu/ml Urine Color Urine Appearance (Clear) Urine pH (4.5-7.5) Ur Specific Muir (1.000-1.030) Urine Protein (Negative) Urine Glucose (UA) (Negative) Urine Ketones (Negative) Urine Blood (Negative) Urine Nitrite (Negative) Urine Bilirubin (Negative) Urine Urobilinogen (Negative) Ur Leukocyte Esterase (Negative) 11/13/19 11/13/19 11/13/19 Range/Units 13:05 17:05 17:05 WBC (4.8-10.8) K/uL RBC (4.2-5.4) M/uL Hgb (12.0-16.0) g/dL Hct (37-47) % MCV (80-100) fL MCH (25-34) pg MCHC (32-36) g/dL RDW Std Deviation (36.4-46.3) fL RDW Coeff of Chepe (11.5-14.5) % Plt Count (130-400) K/uL MPV (7.4-10.4) fL Immature Gran % (Auto) % Neut % (Auto) % Lymph % (Auto) % [place] % (Auto) % Eos % (Auto) % Baso % (Auto) % Immature Gran # (Auto) (0.00-0.02) K/uL Neut # (Auto) (1.4-6.5) K/uL Lymph # (Auto) (1.2-3.4) K/uL [place] # (Auto) (0.11-0.59) K/uL Eos # (Auto) (0-0.5) K/uL Baso # (Auto) (0-0.2) K/uL Microcytosis Ovalocytes PT (9.0-12.0) Seconds INR (0.9-1.1) APTT (21.0-31.0) Seconds PTT Ratio Sodium (136-145) mmol/L Potassium (3.5-5.1) mmol/L Chloride (98-107) mmol/L Carbon Dioxide (21-32) mmol/L Anion Gap (3-11) BUN (7-18) mg/dl Creatinine (0.6-1.2) mg/dl Est Cr Clr Drug Dosing ml/min Est GFR ( Amer) Est GFR (Non-Af Amer) BUN/Creatinine Ratio (10-20) Glucose (70-99) mg/dl Osmolality 271 L (280-300) mOsm/kg Lactate 1.3 (0.4-2.0) mmol/L Calcium (8.5-10.1) mg/dl Phosphorus (2.5-4.9) mg/dl Magnesium (1.8-2.4) mg/dl Total Bilirubin (0.2-1) mg/dl Direct Bilirubin (0-0.2) mg/dl AST (15-37) U/L ALT (12-78) U/L Alkaline Phosphatase (45-117) U/L Troponin I (0-0.045) ng/ml Total Protein (6.4-8.2) gm/dl Albumin (3.4-5.0) gm/dl Globulin (2.5-4.0) gm/dl Albumin/Globulin Ratio (0.9-2) TSH (0.300-4.500) uIu/ml Urine Color Yellow Urine Appearance Clear (Clear) Urine pH 6.0 (4.5-7.5) Ur Specific Muir <= 1.005 (1.000-1.030) Urine Protein Negative (Negative) Urine Glucose (UA) Negative (Negative) Urine Ketones Negative (Negative) Urine Blood Negative (Negative) Urine Nitrite Negative (Negative) Urine Bilirubin Negative (Negative) Urine Urobilinogen Negative (Negative) Ur Leukocyte Esterase Negative (Negative) Administered Medications Ioversol (Optiray 320 125ml) 118 ml IV ONCE PRN PRN Reason: Interaction Checking Stop: 11/17/19 15:22 Last Admin: 11/13/19 15:23 Dose: 118 ml Documented by: [id number] Discontinued Medications Sodium Chloride (Nss) 500 mls @ 999 mls/hr IV .Q31M ONE Stop: 11/13/19 13:26 Last Infusion: 11/13/19 14:23 Dose: 0 mls/hr Documented by: [id number] Admin: 11/13/19 13:37 Dose: 999 mls/hr Documented by: [id number] Blood Pressure Blood Pressure Findings: Elevated blood pressure Blood Pressure Disposition: further management by hospitalist Discharge Plan Visit Data Chief Complaint: Illness ED Provider: Thad Bergeron Discharge Problem: Small cell lung cancer in adult, Hyponatremia, Intermittent confusion, Elevated troponin Discharge Instructions Interventions: ED Discharge Assessment Last Done: 11/13/19 17:17 Forms Stand Alone Forms: [employer] Prescriptions Prescriptions: No Action ipratropium-albuterol 0.5 mg-3 mg(2.5 mg base)/3 mL solution for nebulization 3 ml inhalation Q4H PRN (Reason: Shortness Of Breath Or Wheezing) RF: 0 apixaban 5 mg tablet 5 mg PO BID Qty: 180 RF: 0 flecainide 100 mg tablet 100 mg PO BID Qty: 180 RF: 0 levothyroxine 100 mcg tablet 100 mcg PO DAILYBB RF: 0 omeprazole 20 mg capsule,delayed release(DR/EC) 20 mg PO BID RF: 0 pravastatin 40 mg tablet 80 mg PO HS Qty: 180 RF: 0 montelukast 10 mg tablet 10 mg PO HS RF: 0 thiothixene 5 mg capsule 5 mg PO HS RF: 0 fluticasone propion-salmeterol [Advair Diskus] 250-50 mcg/dose blister with device 1 puffs INH QDD RF: 0 albuterol sulfate [Ventolin HFA] 90 mcg/actuation HFA aerosol inhaler 1 puffs INH .COMPLEX PRN (Reason: Shortness Of Breath Or Wheezing) RF: 0 bupropion HCl 200 mg tablet sustained-release 12 hr 200 mg PO QAM RF: 0 lisinopril 10 mg tablet 20 mg PO BID RF: 0 lorazepam 0.5 mg tablet 0.5 mg PO BID RF: 0 verapamil 360 mg Capsule,Ext Rel. Pellets 24 Hr 360 mg PO DAILY RF: 0 metformin 500 mg Tablet 500 mg PO BID RF: 0 aspirin 81 mg Tablet,Delayed Release (Dr/Ec) 81 mg PO HS RF: 0 Spiriva with HandiHaler 18 mcg capsule, w/inhalation device 18 mcg INHALATION QDD RF: 0 ondansetron HCl 8 mg tablet 8 mg PO UD PRN (Reason: nausea/vomiting) RF: 0 prochlorperazine maleate [Compazine] 10 mg tablet 10 mg PO UD PRN (Reason: Nausea) RF: 0 sennosides-docusate sodium [Senokot-S] 8.6-50 mg Tablet 1 tab PO QAM PRN (Reason: constipation) Qty: 30 RF: 0 urea 15 gram powder in packet 1 pkt PO DAILY 14 Days Qty: 8 RF: 0 Referrals Referrals: Dmitry Roland DO [Primary Care Provider] -
--- NOTE | 2019-11-13 15:52 | CT Scan Report ---
CT ANGIOGRAM OF THE CHEST; CT SCAN OF THE ABDOMEN AND PELVIS WITH IV CONTRAST CLINICAL HISTORY: Fever. Lung cancer. Change in mental status. Elevated serum troponin levels. COMPARISON STUDY: Chest CT scans dated 09/13/2019 and 07/02/2014. Pelvic CT dated 04/20/2018. TECHNIQUE: Following the IV administration of 118 of Optiray 320, CT angiogram of the chest is perfor med from the upper abdomen to the thoracic inlet utilizing the pulmonary embolus protocol. Images are reviewed in the axial, sagittal, coronal planes. 3-D MIPS images are created and assessed. Subsequen tly, CT scan of the abdomen and pelvis was performed from the lung bases to the proximal femora. Imag es are reviewed in the axial, sagittal, and coronal planes. IV contrast was administered without comp lication. A dose lowering technique was utilized adhering to the principles of ALARA. CT DOSE: 2596.60 mGy.cm FINDINGS: CHEST: Thyroid: Atrophic versus surgically absent. Thoracic aorta: There is atherosclerotic calcification of the thoracic aorta, which is normal in [place] and demonstrates standard 3-vessel arch anatomy. No dissection is seen. Pulmonary vasculature: The pulmonary trunk is mildly dilated measuring 3.3 cm in diameter. This sugge sts pulmonary artery hypertension. There are no filling defects identified in the main, lobar, or seg mental pulmonary arteries to indicate pulmonary embolus. Heart: A right internal jugular central venous infusion port is in place. The heart is mildly enlarge d and without pericardial effusion. The coronary arteries are densely calcified. Lungs and pleural spaces: Advanced emphysema is again noted. There are trace pleural effusions. No ai rspace consolidation is identified typical for pneumonia. The trachea and central airways are clear. Mild diffuse peribronchial thickening is noted. A linear irregular opacity in the left lower lobe see n on image #101 measures approximately 3 x 2 x 1 cm. This is similar in appearance to 09/13/[facility]. Tiny satellite nodules are again noted, and this remains concerning for neoplasm. No addition al pulmonary lesion is clearly identified. Infrahilar/peribronchial lymph nodes are noted in the left lower lobe. There is mild diffuse intralobular septal thickening. Mediastinum: There are mildly enlarged mediastinal lymph nodes. A pretracheal node on image #220 angi ures 1.1 cm in short axis. An AP window node on image #190 measures 1.1 cm in short axis. Myrna: Enlarged left hilar lymph nodes measure up to 1.3 cm in short axis. Axillae: There is no axillary lymphadenopathy. Bony thorax: The skeletal structures are osteopenic. No lytic or blastic lesions are identified. Soft tissues: A 5 cm intramuscular lipoma is again noted in the left chest wall on image #123. ABDOMEN AND PELVIS: Liver: The contrast-enhanced liver is enlarged, measuring 20.7 cm in length. The liver is otherwise n ormal in contour and attenuation. There is no intrahepatic or ductal dilatation. The hepatic veins an d portal veins are patent. Gallbladder: There are calcified gallstones with no CT evidence of acute cholecystitis. Spleen: Normal in size and attenuation. Pancreas: Unremarkable. Adrenal glands: A 2.1 cm right adrenal adenoma is unchanged dating back to 2013. The left adrenal gla nd is normal in appearance. Kidneys: The contrast enhanced kidneys are normal in size and without hydronephrosis. The kidneys enh ance symmetrically. Abdominal vasculature: The abdominal aorta is normal in course and caliber noting advanced atheroscle rotic calcification. Bowel: There is moderate colonic fecal retention. No bowel obstruction is seen. The appendix is well -visualized and normal. Peritoneum: There is no intraperitoneal free air or abdominal ascites. Lymphadenopathy: None. Pelvic viscera: The bladder is distended but otherwise normal in appearance. The uterus and adnexa ar e normal as imaged. Skeletal structures: The skeletal structures are osteopenic. No lytic or blastic lesions are seen. IMPRESSION: 1. There is no evidence of pulmonary embolus in the main, lobar, or segmental pulmonary arteries. 2. Mild cardiac enlargement and advanced emphysema. Intraoperative septal thickening suggests a compo nent of congestive failure. Clinical correlation will be required. 3. An irregular linear/branching lesion at the left lung base is similar in appearance to 09/13/2019. This remains concerning for neoplasm. 4. There is left hilar adenopathy as well as left infrahilar/peribronchial adenopathy. 5. Mild diffuse pericardial thickening suggests bronchitis/reactive airway disease. Clinical correlat ion will be required. 6. Trace pleural effusions. 7. There are no acute infectious or inflammatory findings in the abdomen or pelvis. 8. Moderate constipation. 9. Hepatomegaly. 10. Cholelithiasis. 11. Additional findings as above. ACT 112: Negative or not required by law. Electronically signed by: Tan Ruiz M.D. 11/13/2019 3:51 PM
[2019-11-13 17:19] LABS: Appearance Urine Clear (Clear); Bilirubin Urine Negative (Negative); Blood Urine Negative (Negative); Color Urine Yellow; Glucose Urine UA Negative (Negative); Ketones Urine Negative (Negative); Leukocyte Esterase Urine Negative (Negative); Nitrite Urine Negative (Negative); Protein Urine Negative (Negative); Specific Gravity Urine <= 1.005 (1.000-1.030); Urobilinogen Urine Negative (Negative)
--- NOTE | 2019-11-13 17:25 | History & Physical Report ---
Date of Service November 13, 2019 Assessment & Plan (1) Intermittent confusion: (2) Elevated temperature: This is a 59-year-old female who has significant past medical history of recently diagnosed left lower lobe lung small cell carcinoma, PAF anticoagulated on Eliquis and rhythm controlled on flecainide, chronic respiratory failure secondary to emphysema on chronic 2 L of O2, RAKESH on CPAP, history of CVA without residual deficit, CAD, hypothyroidism, prediabetes, depression, schizoaffective disorder, PTSD who presents to ED 2/2 to elevated temperature and reported confusion prior to arrival. During recent admission pt did have asymptomatic bacteria, group B strep Given above symptoms, despite afebrile and normal WBC will initiate IV ceftriaxone 2 g daily. Her mental status is at baseline with no signs .of confusion currently Blood cultures obtained. Repeat urine culture. Lactic acid WNL. No signs of SIRS/SEPSIS per current guidelines Possible increase confusion given significant decrease in serum na in 24hrs admit to PCU obtain MRSA swab - give Vanco x 1 dose, if mrsa swab negative d/c (given recent port placement 11/11) begin empiric tx for UTI with Ceftriaxone PT/OT repeat bmp 10pm (3) Elevated troponin: pt with elevated troponin 0.399 She is without complaint of chest pain and no EKG changes Uncertain etiology for elevated troponin Cycle x2 Repeat EKG Obtain echocardiogram low threshold for cards consult; she [place] [facility] [place]) Chronic hyponatremia: 2/2 to Small cell lung ca and polydipsia Na 131 at d/c yesterday; today 124 may be contributing to intermittent confusion Patient does report polydipsia last evening Strict 1.2L FR, increase urea to BID consult nephro - appreciate their input (5) Small cell lung cancer in adult: recent dx follows thoracic medicine in [place] follows Dr. Nolasco for oncology Had port placement by Dr. Bergeron yesterday, dressing clean and dry Was to begin Chemo - carboplatin today, but did not due to abn labs (6) Paroxysmal A-fib: rate and rhythm controlled with flecainide and verapamil continue Eliquis for stroke prophylaxis (7) CAD (coronary artery disease): History of stent LAD Follow[place] [facility] [place] continue asa, statin, lisinopril eval for elevated trop as above (8) COPD (chronic obstructive pulmonary disease): With CHRONIC Hypoxic Resp Failure on 2L of O2 pt with wheezing on exam schedule duoneb continue Inhaled corticosteroid (9) Hypertension: blood pressure elevated in ED During recent admission had lisinopril increased to 20 mg twice daily and verapamil increased to 360 mg daily continue lisinopril and verapamil monitor (10) RAKESH on CPAP: CPAP at HS (11) Pre-diabetes: Last A1c 5.8 11/07/19 She is on metformin 500 mg twice daily, hold while inpatient Novolog sliding scale per protocol (12) Left rib fracture: seen and examined in ED 10/30 09/23 to fall dx nondistracted left anterior 8th and 9th rib fractures seen on the rib series conservative tx, not complaining of pain (13) Schizoaffective disorder: mood stable, does get TD sx continue navane (14) Chronic cerebral ischemia: documented on Head CT had outpt brain MRI 10/2019 which revealed chronic microvascular ischemic white matter changes On ASA, statin, Eliquis Recommend good blood pressure control (15) Hypothyroidism: Continue levothyroxine and Cytomel TSH WNL (16) DVT prophylaxis: Continue eliquis Disposition: admit to tele Follow up: PCP Dr. Roland upon discharge Pt was seen and examined in collaboration with Dr. Fields, please see addendum History of Present Illness Chief Complaint: Elevated temperature and report confusion prior to arrival. Primary Care Provider: Dmitry Roland DO This is a 59-year-old female who has significant past medical history of recently diagnosed left lower lobe lung small cell carcinoma, PAF anticoagulated on Eliquis and rhythm controlled on flecainide, chronic respiratory failure secondary to emphysema on chronic 2 L of O2, RAKESH on CPAP, history of CVA without residual deficit, CAD, hypothyroidism, prediabetes, depression, schizoaffective disorder, PTSD who presents to ED 09/23 to elevated temperature and reported confusion prior to arrival. Of significance patient recently hospitalized 11/05 to 11/12 secondary to chronic hyponatremia in setting of SIADH and known small cell lung CA and polydipsia. She was seen and evaluated by nephrology. Placed on fluid restriction which was adjusted to 1.2 L at discharge. She was also placed on urea 15 g daily. During hospitalization she did undergo right chest wall port placement by Dr. Bergeron due to plan for chemo today. She went to oncology office when it was documented she had a low-grade 99.4 elevated temperature. Notable lab abnormalities included low sodium and elevated LFTs. Due to this she did not undergo her chemo treatment today and was told to come back tomorrow for repeat blood work. When she went home family felt that she was confused and sent her to ED. She elicits that she woke this morning approximately 4 AM and felt, "not herself." When she got up she felt like she was stumbling around and still feels like her gait is off. She denies any documented fever but states when she went into oncology office she felt warm. She denies any chills or sweats, lightheadedness, dizziness, syncope, fall, chest pain, shortness breath, cough, palpitations, nausea, vomiting, abdominal pain. She does elicit to still having some left chest wall pain secondary to old rib fracture. She denies any flank pain. She admits to increased urine frequency but denies any dysuria or hematuria. Her last bowel movement was this morning and normal for her. She has not had anything to eat today. She states when she was discharged yesterday she had eggs for dinner and 3 - 24 oz glasses of water. She states she only drank one small cup of water today. She did not check her blood sugar when feeling, "off." But after drinking boost this morning it did make her feel improved. She denies similar feeling in the past. She is currently living with son and girlfriend and denies any contact with CoVid-19. In ED patient remained hemodynamically stable saturating well on her usual 2 L of O2. She was hypertensive 177/91 but admits to likely not taking her morning meds. Lab work revealed normal WBC, H&H 9.8 and 30.8, platelet 241, sodium 124, chloride 94, BUN 18, creatinine 0.66, glucose 108, lactate 1.3, AST 60, normal ALT, troponin 0.399, TSH WNL. EKG revealed normal sinus rhythm with no ST or T wave changes. Urinalysis currently pending. She did undergo a head CT which is negative for acute intracranial abnormality. Did reveal advanced confluent changes throughout the subcortical and periventricular white matter likely representing microangiopathic disease. CTA of chest abdomen pelvis revealed no PE, cardiac enlargement and advanced emphysema, known left lung neoplasm, with hilar adenopathy, bronchitis/reactive airway disease, trace pleural effusions, moderate constipation, hepatomegaly. She received IVF while in ED. Allergies Allergy/AdvReac Type Severity Reaction Status Date / Time Beta-Blockers Allergy Severe Confusion; Verified 11/13/19 13:32 (Beta-Adrenergic Bloc Diarrhea; Rash furosemide [From Lasix] Allergy Severe "LUNGS Verified 11/13/19 13:32 CLOSE UP" tetracycline Allergy Intermediate RASH; Verified 11/13/19 13:32 "MYCINS" ALLERGY acetaminophen Allergy Mild GI UPSET Verified 11/13/19 13:32 clindamycin Allergy Unknown "MYCINS" Verified 11/13/19 13:32 ALLERGY diltiazem Allergy Unknown ? Verified 11/13/19 13:32 Sulfa (Sulfonamide Allergy Unknown Unknown Unverified 11/13/19 13:32 Antibiotics) sumatriptan Allergy Unknown "TRIPTANS" Verified 11/13/19 13:32 ALLERGY codeine AdvReac Severe SYNCOPE Verified 11/13/19 13:32 PER PATIENT oxycodone AdvReac Mild GI UPSET Verified 11/13/19 13:32 METAL JEWELRY AdvReac Mild ITCHINESS Uncoded 11/13/19 13:32 "WITH CHEAP JEWELRY" Home Medications Home Medications Medication Instructions Recorded Confirmed Type apixaban 5 mg tablet 5 mg PO BID #180 tab 03/14/19 11/13/19 History flecainide 100 mg tablet 100 mg PO BID #180 tab 03/14/19 11/13/19 History ipratropium 0.5 mg-albuterol 3 mg 3 ml INHALATION Q4H PRN ml 03/14/19 11/13/19 History (2.5 mg base)/3 mL nebulization soln levothyroxine 100 mcg tablet 100 mcg PO DAILYBB tab 03/14/19 11/13/19 History montelukast 10 mg tablet 10 mg PO HS tab 03/14/19 11/13/19 History omeprazole 20 mg capsule,delayed 20 mg PO BID cap 03/14/19 11/13/19 History release pravastatin 40 mg tablet 80 mg PO HS #180 tab 03/14/19 11/13/19 History thiothixene 5 mg capsule 5 mg PO HS cap 03/14/19 11/13/19 History albuterol sulfate 90 mcg/actuation 1 puffs INH .COMPLEX PRN 03/27/19 11/13/19 History aerosol inhaler bupropion HCl 200 mg tablet,12 hr 200 mg PO QAM ea 03/27/19 11/13/19 History sustained-release fluticasone 250 mcg-salmeterol 50 1 puffs INH QDD ea 03/27/19 11/13/19 History mcg/dose blistr powdr for inhalation Spiriva with HandiHaler 18 mcg INHALATION QDD 10/31/19 11/13/19 History aspirin 81 mg PO HS 10/31/19 11/13/19 History ondansetron HCl 8 mg PO UD PRN 11/06/19 11/13/19 History prochlorperazine maleate 10 mg PO UD PRN 11/06/19 11/13/19 History [Compazine] sennosides-docusate sodium 1 tab PO QAM PRN #30 tab 11/12/19 11/13/19 Rx [Senokot-S] urea 1 pkt PO DAILY 14 Days #8 ea 11/12/19 11/13/19 Rx lisinopril 20 mg PO BID 11/13/19 11/13/19 History lorazepam 0.5 mg PO BID 11/13/19 11/13/19 History metformin 500 mg PO BID 11/13/19 11/13/19 History verapamil 360 mg PO DAILY 11/13/19 11/13/19 History Past Med/Surg History Medical History Abnormal mammography CAD (coronary artery disease) Chronic cerebral ischemia Common migraine without aura Contusion of left hip (Resolved) COPD (chronic obstructive pulmonary disease) On oxygen Depression Diaphragmatic hernia Diverticulosis of colon Dizziness DS (disseminated sclerosis) Dyslipidemia Dysmetabolic syndrome X Eczema GERD (gastroesophageal reflux disease) Hearing loss Hyponatremia Hypothyroidism Memory loss Migraines Neuropathy Non-occlusive coronary artery disease RAKESH on CPAP Osteoporosis, unspecified Paroxysmal A-fib Pre-diabetes Schizoaffective disorder Unspecified osteomyelitis, ankle and foot Surgical History History of bunionectomy History of colonoscopy History of coronary angioplasty Stent by Dr. Bryan History of tubal ligation (Resolved) History of wisdom tooth extraction (Resolved) Family History Father Cancer Hypertension Mother Breast cancer Diabetes Hypertension Social History Preferred Language: Romanian Communication Ability: Effective Press Manager Required: No Beliefs That Will Affect Care: None marital status: Single Current Living Situation: Alone Current Living Situation Comment: Son and grandchild Other Information That Helps Us Care for You: No Feels Safe at Home: Yes Safety Concerns: Feels Safe At This Time Smoking Status: Former smoker Do You Dip or Chew Tobacco: No ; Second Hand Exposure: No ; Tobacco Cessation Education Requested by Patient: No Hx Alcohol Use: Yes Alcohol Intake Frequency: Rarely Hx Substance Use: No Review of Systems Review of Systems: All systems reviewed & are unremarkable except as noted in HPI & below Physical Exam Physical Exam: Please refer to Dr. Fields addendum for Physical Exam Results & Data Vital Signs (Past 12 Hours) Vital Signs Temp Pulse Resp BP Pulse Ox 11/13/19 16:30 83 23 177/91 H 100 11/13/19 16:20 83 23 100 11/13/19 16:15 85 20 100 11/13/19 16:10 84 25 H 100 11/13/19 16:00 84 23 174/107 H 99 11/13/19 15:50 84 24 98 11/13/19 15:46 85 26 H 181/103 H 97 11/13/19 15:40 83 22 11/13/19 15:33 88 22 11/13/19 15:15 87 25 H 154/90 H 92 11/13/19 15:10 87 22 91 11/13/19 15:00 87 24 152/94 H 96 11/13/19 14:50 87 21 96 11/13/19 14:45 89 24 158/85 H 94 11/13/19 14:40 88 20 94 11/13/19 14:31 87 20 94 11/13/19 14:30 87 20 173/81 H 94 11/13/19 14:20 88 20 94 11/13/19 14:15 87 20 154/87 H 93 11/13/19 14:10 88 21 95 11/13/19 14:01 90 22 93 11/13/19 14:00 88 21 171/89 H 94 11/13/19 13:50 88 20 94 11/13/19 13:45 88 20 169/88 H 94 11/13/19 13:40 87 19 96 11/13/19 13:30 88 20 159/83 H 95 11/13/19 13:20 87 22 95 11/13/19 13:15 87 23 165/91 H 96 11/13/19 13:12 92 11/13/19 13:10 88 29 H 11/13/19 13:00 86 22 94 11/13/19 12:50 87 21 95 11/13/19 12:47 89 25 H 95 11/13/19 12:45 36.8 C 94 H 30 H 158/85 H 94 11/13/19 12:42 90 23 158/85 H 95 Laboratory Results Short CBC 11/13/19 Range/Units 13:05 WBC 5.63 (4.8-10.8) K/uL Hgb 9.8 L (12.0-16.0) g/dL Hct 30.8 L (37-47) % MCV 69.8 L (80-100) fL MCH 22.2 L (25-34) pg Plt Count 241 (130-400) K/uL BMP 11/13/19 13:05 Sodium 124 L D Potassium 4.5 Chloride 94 L Carbon Dioxide 26 BUN 18 Creatinine 0.66 Glucose 108 H Calcium 8.8 Cardiac Enzymes 11/13/19 Range/Units 13:05 Troponin I 0.399 H* (0-0.045) ng/ml Liver Function 11/13/19 Range/Units 13:05 Total Bilirubin 0.2 (0.2-1) mg/dl Direct Bilirubin 0.1 (0-0.2) mg/dl AST 60 H (15-37) U/L ALT 60 (12-78) U/L Alkaline Phosphatase 114 (45-117) U/L Albumin 2.9 L (3.4-5.0) gm/dl Urine 11/13/19 Range/Units 17:05 Urine Color Yellow Urine Appearance Clear (Clear) Urine pH 6.0 (4.5-7.5) Ur Specific [place] <= 1.005 (1.000-1.030) Urine Protein Negative (Negative) Urine Glucose (UA) Negative (Negative) Diagnostic Findings CXR: IMPRESSION: Progression of the mild interstitial thickening. This may represent mild congestive change on the background of chronic interstitial lung disease. Chest/Abd/pelvis CT: ABDOMEN AND PELVIS: Liver: The contrast-enhanced liver is enlarged, measuring 20.7 cm in length. The liver is otherwise normal in contour and attenuation. There is no intrahepatic or ductal dilatation. The hepatic veins and portal veins are patent. Gallbladder: There are calcified gallstones with no CT evidence of acute cholecystitis. Spleen: Normal in size and attenuation. Pancreas: Unremarkable. Adrenal glands: A 2.1 cm right adrenal adenoma is unchanged dating back to 2013. The left adrenal gland is normal in appearance. Kidneys: The contrast enhanced kidneys are normal in size and without h ydronephrosis. The kidneys enhance symmetrically. Abdominal vasculature: The abdominal aorta is normal in course and caliber noting advanced atherosclerotic calcification. Bowel: There is moderate colonic fecal retention. No bowel obstruction is seen. The appendix is well-visualized and normal. Peritoneum: There is no intraperitoneal free air or abdominal ascites. Lymphadenopathy: None. Pelvic viscera: The bladder is distended but otherwise normal in appearance. The uterus and adnexa are normal as imaged. Skeletal structures: The skeletal structures are osteopenic. No lytic or blastic lesions are seen. IMPRESSION: 1. There is no evidence of pulmonary embolus in the main, lobar, or segmental pulmonary arteries. 2. Mild cardiac enlargement and advanced emphysema. Intraoperative septal thickening suggests a component of congestive failure. Clinical correlation will be required. 3. An irregular linear/branching lesion at the left lung base is similar in appearance to 09/13/2019. This remains concerning for neoplasm. 4. There is left hilar adenopathy as well as left infrahilar/peribronchial adenopathy. 5. Mild diffuse pericardial thickening suggests bronchitis/reactive airway disease. Clinical correlation will be required. 6. Trace pleural effusions. 7. There are no acute infectious or inflammatory findings in the abdomen or pelvis. 8. Moderate constipation. 9. Hepatomegaly. 10. Cholelithiasis. 11. Additional findings as above. Head CT: IMPRESSION: 1. There is no hemorrhage, mass effect, or evidence of acute territorial ischemia by CT criteria. 2. Advanced confluent change throughout the subcortical and periventricular white matter likely represents microangiopathic disease. This could also represent treatment related change if there has been a history of brain radiation. This is unchanged from prior studies and clinical correlation will be essential. Medications Administered Ioversol (Optiray 320 125ml) 118 ml IV ONCE PRN PRN Reason: Interaction Checking Stop: 11/17/19 15:22 Last Admin: 11/13/19 15:23 Dose: 118 ml Documented by: [id number] Discontinued Medications Sodium Chloride (Nss) 500 mls @ 999 mls/hr IV .Q31M ONE Stop: 11/13/19 13:26 Last Infusion: 11/13/19 14:23 Dose: 0 mls/hr Documented by: [id number] Admin: 11/13/19 13:37 Dose: 999 mls/hr Documented by: [id number] ECG Rate (beats per minute): 90 Rhythm: normal sinus Change: no significant change Code Status & VTE Plan Code Status Full Code VTE Prophylaxis Plan VTE Prophylaxis will be ordered: Yes Supervising Physician Co-Signing Physician Notes 59-year-old female who has significant past medical history of recently diagnosed left lower lobe lung small cell carcinoma, PAF anticoagulated on Eliquis and rhythm controlled on flecainide, chronic respiratory failure secondary to emphysema on chronic 2 L of O2, RAKESH on CPAP, history of CVA without residual deficit, CAD, hypothyroidism, prediabetes, depression, schizoaffective disorder, PTSD who presents to ED 2/2 to elevated temperature and reported confusion prior to arrival. Patient was recently discharged yesterday after being managed for hyponatremia She also got port placement yesterday for commencement of chemo today for her recent lung cancer diagnosis Detailed history as documented by Zully Thompson PA-C History notable for subjective fever at chemo, temp of 99 at the time. When asked if she was having is having urinary frequency, she answered yes but only acknowledged urinating twice today. Denied any other urinary symptoms Denied any worsening pain at port site. Reports mild chest discomfort on left which she stated was chronic and related to her old rib fractures Denied any shortness of breath, cough Physical exam General: Well hydrated, obese, no acute distress and not ill appearing Eyes: PERRL, conjunctivae normal, not pale, anicteric sclerae, EOM intact bilaterally ENMT: External ear and nose normal, oropharynx normal Neck: Normal visual inspection, no tracheal deviation, no swelling noted Respiratory: Normal respiratory effort, no respiratory distress, on nasal oxygen at 2l/min (baseline), mild expiratory rhonchi, no crackles Cardiovascular: Pulse is RRR. S1 S2. No pedal edema Chest (Breasts): Chest: normal inspection of chest Gastrointestinal (Abdomen): Abdomen is not distended, soft, non-tender to palpation, no guarding, no palpable hepatosplenomegaly, normal bowel sounds Musculoskeletal: No cyanosis or clubbing, all extremities motor strength 5/5 Genitourinary: No suprapubic tenderness or CVA tenderness Neurologic: Alert and oriented x 3, No focal weakness, sensation grossly intact Psychiatric: Alert and oriented x 3, euthymic affect Labs significant for Na 124, serum osm 271 Urine osm 449 Trop 0.399 AST 60 UA was unremarkable Assessment Confusion Reported confusion is currently resolved. Patient is back to her baseline. Son not available to provide more history. Possibilities include UTI. Port site does not look infected. Patient did have asymptomatic bacteruria on recent admission. UA does not suggest infection but will send for culture and start ceftriaxone for now pending culture result. Confusion is likely related to hyponatremia which is due to SIADH + poor caloric intake per labs and history Na is 124, was 131 yesterday on discharge. Was discharged on urea 15g daily as she could not afford BID and was supposed to pick this [facility] but was brought to the hospital before that. Resume urea 15g bid Continue fluid restriction Nephrology consult Elevated troponin, unclear cause Patient does not report any ACS symptoms EKG was NSR, no ischemic changes. Will trend trop and monitor. Get 2D Echo Possible cause is demand from elevated blood pressure Stated she did not take her BP meds today Resume verapamil and lisinopril and monitor BP Nebs for wheezing Other plans as above (1) Left rib fracture Encounter type: initial encounter Fracture type: closed Rib fracture type: multiple ribs Qualified Code(s): S22.42XA - Multiple fractures of ribs, left side, initial encounter for closed fracture (2) Hypertension Hypertension type: essential hypertension Qualified Code(s): I10 - Essential (primary) hypertension
[2019-11-13] MEDS ORDERED: DEXTROSE 50% 50 ML SYRINGE IV PRN (17:56)
[2019-11-13] MEDS ORDERED: CARBOHYDRATES FOR HYPOGLYCEMIA PO PRN (17:56)
[2019-11-13] MEDS ORDERED: ONDANSETRON INJ 2 MG/ML 2 ML VIAL IV PRN (17:56)
[2019-11-13] MEDS ORDERED: ALUMINUM/MAGNESIUM SUSP 30 ML UDC PO PRN (17:56)
[2019-11-13] MEDS ORDERED: GLUCOSE 10 TABS/TUBE PO PRN (17:56)
[2019-11-13] MEDS ORDERED: VANCOMYCIN CONSULT ACTIVE PRN (17:56)
[2019-11-13] MEDS ORDERED: GLUCAGON FOR INJ 1 MG VIAL SQ PRN (17:56)
[2019-11-13] MEDS ORDERED: GLUCOSE 40% GEL 15 GM TUBE PO PRN (17:56)
[2019-11-13] MEDS ORDERED: VERAPAMIL HCL 40 MG TAB PO ONE (18:30)
[2019-11-13] MEDS ORDERED: VANCOMYCIN HCL 2,000 MG in SODIUM CHLORIDE 0.9% 500 ML IV ONE (18:30)
[2019-11-13] MEDS ORDERED: ALBUT/IPRATROP 3MG/0.5MG NEB 3 ML VIAL NEB SCH (19:00)
[2019-11-13] MEDS: cefTRIAXone SODIUM 2,000 MG in DEXTROSE 5% 50 ML IV SCH (19:02)
[2019-11-13] MEDS ORDERED: ALBUT/IPRATROP 3MG/0.5MG NEB 3 ML VIAL NEB PRN (20:17)
[2019-11-13] MEDS: LORazepam 0.5 MG TAB PO SCH (20:51)
[2019-11-13] MEDS: APIXABAN 5 MG TABLET PO SCH (20:52)
[2019-11-13] MEDS: lisinopriL 20 MG TAB PO SCH (20:53)
[2019-11-13] MEDS: MONTELUKAST SODIUM 10 MG TABLET PO SCH (20:54)
[2019-11-13] MEDS: FLECAINIDE ACETATE 100 MG TABLET PO SCH (20:54)
[2019-11-13] MEDS: UREA (URE-NA) 15 GM PACK PO SCH (20:54)
[2019-11-13] MEDS: DOCUSATE SODIUM/SENNA 50/8.6MG TAB PO SCH (20:54)
[2019-11-13] MEDS: THIOTHIXENE 5 MG CAP PO SCH (20:55)
[2019-11-13] MEDS: PRAVASTATIN SOD 40 MG TAB PO SCH (20:55)
[2019-11-13] MEDS: PANTOprazole 40 MG TAB PO SCH (20:55)
--- NOTE | 2019-11-13 21:48 | Pharmacy Report ---
Pharmacy Abx Initial Consult - Date of Service November 13, 2019 - Pharmacy Dosing Scope Date of Consult: 11/13/2019 Consultation requested by: Zully Thompson Pharmacy is consulted to initiate vancomycin IV dosing therapy, order appropriate labs and adjust drug dose/frequency. - Subjective The patient is a 59 year old F admitted on 11/13/19 16:29 with weakness. - Objective Height: 5 ft 1 in Weight: 75.8 kg Vital Signs (Past 12hrs): Vital Signs Temp Pulse Pulse Resp BP BP Pulse Ox 11/13/19 19:13 36.6 C 93 H 20 168/81 H 99 11/13/19 19:05 93 H 18 91 11/13/19 18:00 89 11/13/19 17:37 85 21 165/71 H 99 11/13/19 17:35 85 20 98 11/13/19 17:30 37.1 C 86 88 15 181/84 H 99 11/13/19 17:20 84 22 97 11/13/19 17:17 84 20 197/117 H 97 11/13/19 17:10 86 18 94 11/13/19 17:02 114 H 31 H 11/13/19 16:50 86 28 H 100 11/13/19 16:40 84 33 H 100 11/13/19 16:30 83 23 177/91 H 100 11/13/19 16:20 83 23 100 11/13/19 16:15 85 20 100 11/13/19 16:10 84 25 H 100 11/13/19 16:00 84 23 174/107 H 99 11/13/19 15:50 84 24 98 11/13/19 15:46 85 26 H 181/103 H 97 11/13/19 15:40 83 22 11/13/19 15:33 88 22 11/13/19 15:15 87 25 H 154/90 H 92 11/13/19 15:10 87 22 91 11/13/19 15:00 87 24 152/94 H 96 11/13/19 14:50 87 21 96 11/13/19 14:45 89 24 158/85 H 94 11/13/19 14:40 88 20 94 11/13/19 14:31 87 20 94 11/13/19 14:30 87 20 173/81 H 94 11/13/19 14:20 88 20 94 11/13/19 14:15 87 20 154/87 H 93 11/13/19 14:10 88 21 95 11/13/19 14:01 90 22 93 11/13/19 14:00 88 21 171/89 H 94 11/13/19 13:50 88 20 94 11/13/19 13:45 88 20 169/88 H 94 11/13/19 13:40 87 19 96 11/13/19 13:30 88 20 159/83 H 95 11/13/19 13:20 87 22 95 11/13/19 13:15 87 23 165/91 H 96 11/13/19 13:12 92 11/13/19 13:10 88 29 H 11/13/19 13:00 86 22 94 11/13/19 12:50 87 21 95 11/13/19 12:47 89 25 H 95 11/13/19 12:45 36.8 C 94 H 30 H 158/85 H 94 11/13/19 12:42 90 23 158/85 H 95 Lab Results (24hrs): Laboratory Tests (24 Hours) 11/13/19 11/13/19 13:05 13:05 WBC 5.63 Neut # (Auto) 4.21 Creatinine 0.66 Est Cr Clr Drug Dosing 83.4 Micro Results: 11/13/19 13:05 Aerobic Blood Culture - Pending Blood Anaerobic Blood Culture - Pending 11/13/19 13:05 Aerobic Blood Culture - Pending Blood Anaerobic Blood Culture - Pending - Risk Factors for Resistance * Hospitalization for 48 hours or more within the past 90 days * COPD * recent diagnosis of LLL SCLC - Assessment & Plan Assessment 59 year old F admitted with weakness and possible pneumonia. Plan vancomycin for treatment of pneumonia Vancomycin IV * Loading dose: 2000 mg (25 mg/kg) * Maintenance dose: 1250 mg IV (16 mg/kg) every 12 hours * Patient meets criteria for vancomycin AUC dosing nomogram * AUC/CHRISTIAN is the preferred PK/PD target for vancomycin * Target AUC/CHRISTIAN = 400-600 * AUC guided dosing is effective and associated with decreased risk of nephrotoxicity Pharmacy will continue to follow and will adjust dose/frequency as necessary. Thank you.
[2019-11-13 21:56] LABS: BUN Creatinine Ratio 17.8 (10-20); Calcium 8.7 mg/dl (8.5-10.1); Creatinine Clr Calc Pharmacy 82.1 ml/min; Est GFR (Non-African American) 94.9; Potassium 4.4 mmol/L (3.5-5.1)
[2019-11-13] MEDS: INSULIN ASPART 100 UNITS/ML 3 ML PEN SC SCH (21:57)
[2019-11-13] MEDS: ASPIRIN 81 MG ECTAB PO SCH (22:04)
[2019-11-14] MEDS: LEVOTHYROXINE SODIUM 100 MCG TABLET PO SCH (06:02)
[2019-11-14 06:28] LABS: Alanine Aminotransferase 125 U/L (12-78); Albumin Level 2.6 gm/dl (3.4-5.0); Alkaline Phosphatase 158 U/L (45-117); Aspartate Aminotransferase 139 U/L (15-37); Bilirubin Direct < 0.1 mg/dl (0-0.2); Bilirubin,Total 0.3 mg/dl (0.2-1); Iron 13 mcg/dl (35-150); Total Iron Binding Capacity 263 mcg/dl (250-450); Total Protein 6.5 gm/dl (6.4-8.2); Transferrin 203 mg/dl (200-360)
[2019-11-14] MEDS: lisinopriL 20 MG TAB PO SCH ×2 (07:49→20:44)
[2019-11-14] MEDS: FLECAINIDE ACETATE 100 MG TABLET PO SCH ×2 (07:50→20:43)
[2019-11-14] MEDS: UREA (URE-NA) 15 GM PACK PO SCH ×2 (07:50→20:44)
[2019-11-14] MEDS: PANTOprazole 40 MG TAB PO SCH ×2 (07:51→20:43)
[2019-11-14] MEDS: DOCUSATE SODIUM/SENNA 50/8.6MG TAB PO SCH ×2 (07:51→20:41)
[2019-11-14] MEDS: BuPROPion SR 100 MG TABCR PO SCH (07:52)
[2019-11-14] MEDS: VERAPAMIL HCL 180 MG TABCR PO SCH (07:52)
[2019-11-14] MEDS: APIXABAN 5 MG TABLET PO SCH ×2 (07:53→20:42)
[2019-11-14] MEDS: ALBUTEROL HFA 8 GM INHALER INH SCH ×4 (07:54→20:44)
[2019-11-14] MEDS: FLUTICASONE/VILANTEROL 100/25MCG 14 PUFFS/INHALER INH SCH (07:55)
[2019-11-14] MEDS: UMECLIDINIUM BROMIDE 62.5MCG/BLISTER 7 PUFFS/INHALER INH SCH (07:56)
[2019-11-14] MEDS: LORazepam 0.5 MG TAB PO SCH (07:59)
[2019-11-14] MEDS: INSULIN ASPART 100 UNITS/ML 3 ML PEN SC SCH ×5 (08:00→20:45)
[2019-11-14] MEDS ORDERED: VANCOMYCIN HCL 1,250 MG in SODIUM CHLORIDE 0.9% 250 ML IV SCH (08:00)
[2019-11-14] MEDS ORDERED: POLYETHYLENE (MIRALAX) 17 GM PACK PO PRN (08:34)
--- NOTE | 2019-11-14 10:39 | Nephrology Consultation ---
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 Sodium was 131 2 days ago but dropped to 124 yesterday and now back up to 1.7. Resume 1.2 L fluid restriction. Patient will need to adhere to some fluid restriction even after discharge. Continue urea 15 g twice daily given on discharge. Monitor sodium daily. History of Present Illness Attending Physician: Benigno Shannon MD History of Present Illness This is a 59-year-old female who has significant past medical history of recently diagnosed left lower lobe lung small cell carcinoma, PAF anticoagulated on Eliquis and rhythm controlled on flecainide, chronic respiratory failure secondary to emphysema on chronic 2 L of O2, RAKESH on CPAP, history of CVA without residual deficit, CAD, hypothyroidism, prediabetes, depression, schizoaffective disorder, PTSD who was admitted on 11/13/2019 with altered mental status and fever. I have been asked to evaluate her for hyponatremia. Patient recently hospitalized 11/06/2019 with hyponatremia of 118. She improved on urea and discharge sodium was 131 on 11/12/2019. The patient was at the oncologist office yesterday for possible chemotherapy but was found to have hyponatremia of 124 as well as liver enzyme abnormalities and chemo could not be administered. She r eports drinking an extra bottle of water at home and had no urea at home.The son later brought her to the emergency room due to altered mental status. She was restarted on urea and her sodium is back up 127. This morning she is awake and oriented. No confusion. No shortness of breath. She is also receiving empiric ceftriaxone given history of UTI on the last admission. Allergies Allergy/AdvReac Type Severity Reaction Status Date / Time Beta-Blockers Allergy Severe Confusion; Verified 11/13/19 13:32 (Beta-Adrenergic Bloc Diarrhea; Rash furosemide [From Lasix] Allergy Severe "LUNGS Verified 11/13/19 13:32 CLOSE UP" tetracycline Allergy Intermediate RASH; Verified 11/13/19 13:32 "MYCINS" ALLERGY acetaminophen Allergy Mild GI UPSET Verified 11/13/19 13:32 clindamycin Allergy Unknown "MYCINS" Verified 11/13/19 13:32 ALLERGY diltiazem Allergy Unknown ? Verified 11/13/19 13:32 Sulfa (Sulfonamide Allergy Unknown Unknown Unverified 11/13/19 13:32 Antibiotics) sumatriptan Allergy Unknown "TRIPTANS" Verified 11/13/19 13:32 ALLERGY codeine AdvReac Severe SYNCOPE Verified 11/13/19 13:32 PER PATIENT oxycodone AdvReac Mild GI UPSET Verified 11/13/19 13:32 METAL JEWELRY AdvReac Mild ITCHINESS Uncoded 11/13/19 13:32 "WITH CHEAP JEWELRY" Home Medications Home Medications Medication Instructions Recorded Confirmed Type apixaban 5 mg tablet 5 mg PO BID #180 tab 03/14/19 11/13/19 History flecainide 100 mg tablet 100 mg PO BID #180 tab 03/14/19 11/13/19 History ipratropium 0.5 mg-albuterol 3 mg 3 ml INHALATION Q4H PRN ml 03/14/19 11/13/19 History (2.5 mg base)/3 mL nebulization soln levothyroxine 100 mcg tablet 100 mcg PO DAILYBB tab 03/14/19 11/13/19 History montelukast 10 mg tablet 10 mg PO HS tab 03/14/19 11/13/19 History omeprazole 20 mg capsule,delayed 20 mg PO BID cap 03/14/19 11/13/19 History release pravastatin 40 mg tablet 80 mg PO HS #180 tab 03/14/19 11/13/19 History thiothixene 5 mg capsule 5 mg PO HS cap 03/14/19 11/13/19 History albuterol sulfate 90 mcg/actuation 1 puffs INH .COMPLEX PRN 03/27/19 11/13/19 History aerosol inhaler bupropion HCl 200 mg tablet,12 hr 200 mg PO QAM ea 03/27/19 11/13/19 History sustained-release fluticasone 250 mcg-salmeterol 50 1 puffs INH QDD ea 03/27/19 11/13/19 History mcg/dose blistr powdr for inhalation Spiriva with HandiHaler 18 mcg INHALATION QDD 10/31/19 11/13/19 History aspirin 81 mg PO HS 10/31/19 11/13/19 History ondansetron HCl 8 mg PO UD PRN 11/06/19 11/13/19 History prochlorperazine maleate 10 mg PO UD PRN 11/06/19 11/13/19 History [Compazine] sennosides-docusate sodium 1 tab PO QAM PRN #30 tab 11/12/19 11/13/19 Rx [Senokot-S] urea 1 pkt PO DAILY 14 Days #8 ea 11/12/19 11/13/19 Rx lisinopril 20 mg PO BID 11/13/19 11/13/19 History lorazepam 0.5 mg PO BID 11/13/19 11/13/19 History metformin 500 mg PO BID 11/13/19 11/13/19 History verapamil 360 mg PO DAILY 11/13/19 11/13/19 History Patient History Medical History Abnormal mammography CAD (coronary artery disease) Chronic cerebral ischemia Common migraine without aura Contusion of left hip (Resolved) COPD (chronic obstructive pulmonary disease) On oxygen Depression Diaphragmatic hernia Diverticulosis of colon Dizziness DS (disseminated sclerosis) Dyslipidemia Dysmetabolic syndrome X Eczema GERD (gastroesophageal reflux disease) Hearing loss Hyponatremia Hypothyroidism Memory loss Migraines Neuropathy Non-occlusive coronary artery disease RAKESH on CPAP Osteoporosis, unspecified Paroxysmal A-fib Pre-diabetes Schizoaffective disorder Unspecified osteomyelitis, ankle and foot Surgical History History of bunionectomy History of colonoscopy History of coronary angioplasty Stent by Dr. Bryan History of tubal ligation (Resolved) History of wisdom tooth extraction (Resolved) Family History Father Cancer Hypertension Mother Breast cancer Diabetes Hypertension Social History Preferred Language: Citizen Of [place] Communication Ability: Effective Coagulant Dipper Required: No Beliefs That Will Affect Care: None marital status: Single Current Living Situation: Alone Current Living Situation Comment: Son and grandchild Other Information That Helps Us Care for You: No Feels Safe at Home: Yes Safety Concerns: Feels Safe At This Time Smoking Status: Former smoker Do You Dip or Chew Tobacco: No ; Second Hand Exposure: No ; Tobacco Cessation Education Requested by Patient: No Hx Alcohol Use: Yes Alcohol Intake Frequency: Rarely Hx Substance Use: No Review of Systems Review of Systems: All systems reviewed & are unremarkable except as noted in HPI & below Physical Exam Physical Exam: General exam: Appears comfortable, no acute distress HEENT: Pupils are equal and reactive to light Neck: No JVD, neck is supple trachea is midline Respiratory system: Clear breath sounds bilaterally. Gastrointestinal: Abdomen is soft, non distended, non tender, bowel sounds are present CVS: Regular rate and rhythm. No murmurs, rubs or gallops Musculoskeletal: No joint or muscle tenderness Extremities: Non tender, no edema, peripheral pulses are present Neuro: Oriented, no tremors, no focal neurological deficits Skin: No rashes Results & Data Vital Signs (Past 12 Hours) Vital Signs Temp Pulse Pulse Resp BP Pulse Ox Pulse Ox 11/14/19 08:00 81 95 11/14/19 07:13 37.2 C 78 19 155/79 H 95 11/14/19 04:20 37.2 C 86 18 163/77 H 93 11/13/19 23:47 36.8 C 83 19 150/81 H 95 Laboratory Results 11/13/19 21:08 11/13/19 11/13/19 11/14/19 13:05 13:05 05:18 WBC 5.63 RBC 4.41 MCV 69.8 L MCH 22.2 L MCHC 31.8 L RDW Std Deviation 45.5 RDW Coeff of [place] 17.7 H Plt Count 241 MPV 9.5 Phosphorus 3.6 Albumin 2.9 L 2.6 L
--- NOTE | 2019-11-14 11:58 | XCELERA ---
[id number] \\[email or web address]\[id number]_[email or web address]\[id number]
--- NOTE | 2019-11-14 15:36 | Hospitalist Progress Note ---
Date of Service November 14, 2019 Assessment & Plan (1) Intermittent confusion: (2) Elevated temperature: Patient is a 59 yr female with H/O left lower lobe lung small cell carcinoma, PAF on Eliquis, chronic respiratory failure secondary to emphysema on chronic 2 L of O2, RAKESH on CPAP, H/O CVA, CAD, hypothyroidism, prediabetes, depression, schizoaffective disorder, PTSD who presented with elevated temperature and reported confusion prior to arrival. Encephalopathy DD: Metabolic in setting of hyponatremia Medication induced as per patient--due to Ativan --CT Head:There is no hemorrhage, mass effect, or evidence of acute territorial ischemia by CT criteria. Advanced confluent change throughout the subcortical and periventricular white matter likely represents microangiopathic disease. This could also represent treatment related change if there has been a history of brain radiation. This is unchanged from prior studies and clinical correlation will be essential. --Mental status back to baseline --Less likely UTI--given asymptomatic and afebrile currently. Receiving IV Rocephin --Blood Cx:No growth to date (3) Elevated troponin: Likely due to uncontrolled HTN on admission Denies any Angina Symptoms ECHO: No wall motion abnormality She is without complaint of chest pain and no EKG changes EKG: no signs of Ischemia (4) Chronic hyponatremia: Likely due to SIADH in setting of small cell lung cancer Sodium level improved to 127 today Continue fluid restriction Continue urea sodium Appreciate nephrology input Monitor sodium levels (5) Small cell lung cancer in adult: Recently diagnosed Follows with thoracic medicine in [place] Follows with Dr. Nolasco for oncology Chemo Port placement by Dr. Bergeron on 11/12/19 Planned to be started on Chemotherapy as outpatient (6) Paroxysmal A-fib: Continue flecainide and verapamil On Eliquis for anticoagulation (7) CAD (coronary artery disease): Follows [facility] [place] cardiology continue Aspirin, statin, lisinopril (8) COPD (chronic obstructive pulmonary disease): Chronic Hypoxic Respiratory Failure on 2L of O2 Continue usual meds (9) Hypertension: Last admission, lisinopril increased to 20 mg twice daily and verapamil increased to 360 mg daily continue lisinopril and verapamil monitor (10) RAKESH on CPAP: CPAP at HS (11) Pre-diabetes: Last A1c 5.8 11/07/19 Hold PO meds while hospitalized Novolog sliding scale per protocol (12) Left rib fracture: Secondary to fall dx nondistracted left anterior 8th and 9th rib fractures seen on the rib series conservative management (13) Schizoaffective disorder: mood stable continue navane (14) Chronic cerebral ischemia: Outpatient brain MRI 10/2019 which revealed chronic microvascular ischemic white matter changes On ASA, statin, Eliquis (15) Hypothyroidism: Continue levothyroxine and Cytomel TSH: Normal (16) DVT prophylaxis: On Eliquis Code Status Full Code Admission and Anticipated Discharge Date Admission Date: November 14, 2019 Subjective Patient is seen and examined at bedside States having mild discomfort at the Chemo-Port placement Mental status back to baseline--oriented today Sodium levels improved to 127 today Offers no other complaints Review of Systems Review of Systems: All systems reviewed & are unremarkable except as noted in HPI & below Physical Exam Physical Exam: Physical Exam: Vitals signs as noted above General Appearance:Moderately built and nourished, no apparent distress Head: normocephalic, Atraumatic Eyes: normal inspection, EOMI Neck: supple, Trachea midline Respiratory/Chest: Decreased breath sounds, CTA, + Chemo Port Cardiovascular: S1, S2, No murmur Abdomen/GI:Soft, Non tender, Bowel sounds present Extremities/Musculoskelatal:normal inspection, no edema Neurologic/Psych:AAOX3, grossly no focal neurological deficits Skin: normal color, warm Results & Data Results & Data ([facility]) Vital Signs (Past 12 Hours) Vital Signs Temp Pulse Pulse Resp BP Pulse Ox Pulse Ox 11/14/19 13:59 11/14/19 13:42 90 11/14/19 11:49 37.0 C 80 18 139/76 93 11/14/19 08:00 81 95 11/14/19 07:13 37.2 C 78 19 155/79 H 95 11/14/19 04:20 37.2 C 86 18 163/77 H 93 Pulse Ox Pulse Ox Pulse Ox 11/14/19 13:59 92 89 L 78 L 11/14/19 13:42 11/14/19 11:49 11/14/19 08:00 11/14/19 07:13 11/14/19 04:20 Laboratory Results BMP 11/13/19 21:08 Sodium 127 L Potassium 4.4 Chloride 94 L Carbon Dioxide 28 BUN 12 Creatinine 0.67 Glucose 112 H Calcium 8.7 Cardiac Enzymes 11/13/19 11/14/19 Range/Units 17:05 00:18 Troponin I 0.505 H* 0.445 H* (0-0.045) ng/ml Liver Function 11/14/19 Range/Units 05:18 Total Bilirubin 0.3 (0.2-1) mg/dl Direct Bilirubin < 0.1 (0-0.2) mg/dl AST 139 H (15-37) U/L ALT 125 H (12-78) U/L Alkaline Phosphatase 158 H (45-117) U/L Albumin 2.6 L (3.4-5.0) gm/dl Urine 11/13/19 Range/Units 17:05 Urine Color Yellow Urine Appearance Clear (Clear) Urine pH 6.0 (4.5-7.5) Ur Specific [place] <= 1.005 (1.000-1.030) Urine Protein Negative (Negative) Urine Glucose (UA) Negative (Negative) (1) Hypertension Hypertension type: essential hypertension Qualified Code(s): I10 - Essential (primary) hypertension (2) Left rib fracture Encounter type: initial encounter Fracture type: closed Rib fracture type: multiple ribs Qualified Code(s): S22.42XA - Multiple fractures of ribs, left side, initial encounter for closed fracture
[2019-11-14] MEDS: cefTRIAXone SODIUM 2,000 MG in DEXTROSE 5% 50 ML IV SCH (20:02)
[2019-11-14] MEDS: ASPIRIN 81 MG ECTAB PO SCH (20:40)
[2019-11-14] MEDS: PRAVASTATIN SOD 40 MG TAB PO SCH (20:41)
[2019-11-14] MEDS: THIOTHIXENE 5 MG CAP PO SCH (20:42)
[2019-11-14] MEDS: MONTELUKAST SODIUM 10 MG TABLET PO SCH (20:43)
[2019-11-15] MEDS: LEVOTHYROXINE SODIUM 100 MCG TABLET PO SCH (05:28)
[2019-11-15 06:01] LABS: Hematocrit (blood only) 28.9 % (37-47); Hemoglobin 9.2 g/dL (12.0-16.0); Mean Corpuscular Hemoglobin 22.3 pg (25-34); Mean Corpuscular Hgb Conc 31.8 g/dL (32-36); Platelet Count 253 K/uL (130-400); RDW Coefficient of Variation 17.7 % (11.5-14.5); RDW Standard Deviation 45.5 fL (36.4-46.3); Red Blood Count 4.13 M/uL (4.2-5.4); White Blood Count 6.42 K/uL (4.8-10.8)
[2019-11-15 06:39] LABS: BUN Creatinine Ratio 32.6 (10-20); Calcium 8.7 mg/dl (8.5-10.1); Creatinine Clr Calc Pharmacy 104.7 ml/min; Est GFR (African American) 119.5; Est GFR (Non-African American) 103.1; Potassium 3.7 mmol/L (3.5-5.1)
[2019-11-15 07:25] VITALS: TEMP 98.4
[2019-11-15] MEDS: INSULIN ASPART 100 UNITS/ML 3 ML PEN SC SCH ×2 (08:21→12:26)
[2019-11-15] MEDS: lisinopriL 20 MG TAB PO SCH (08:22)
[2019-11-15] MEDS: DOCUSATE SODIUM/SENNA 50/8.6MG TAB PO SCH ×2 (08:22→10:53)
[2019-11-15] MEDS: BuPROPion SR 100 MG TABCR PO SCH (08:22)
[2019-11-15] MEDS: UMECLIDINIUM BROMIDE 62.5MCG/BLISTER 7 PUFFS/INHALER INH SCH (08:23)
[2019-11-15] MEDS: UREA (URE-NA) 15 GM PACK PO SCH (08:23)
[2019-11-15] MEDS: VERAPAMIL HCL 180 MG TABCR PO SCH (08:23)
[2019-11-15] MEDS: FLECAINIDE ACETATE 100 MG TABLET PO SCH (08:23)
[2019-11-15] MEDS: PANTOprazole 40 MG TAB PO SCH (08:23)
[2019-11-15] MEDS: FLUTICASONE/VILANTEROL 100/25MCG 14 PUFFS/INHALER INH SCH (08:23)
[2019-11-15] MEDS: APIXABAN 5 MG TABLET PO SCH (08:23)
[2019-11-15] MEDS: ALBUTEROL HFA 8 GM INHALER INH SCH ×2 (08:23→13:46)
[2019-11-15] MEDS ORDERED: POTASSIUM CHLORIDE PWD 20 MEQ PACK PO SCH (09:15)
[2019-11-15 11:10] VITALS: BP 130/77; PULSE 76
--- NOTE | 2019-11-15 14:29 | Hospitalist Progress Note ---
Date of Service November 15, 2019 Assessment & Plan (1) Intermittent confusion: (2) Elevated temperature: Patient is a 59 yr female with H/O left lower lobe lung small cell carcinoma, PAF on Eliquis, chronic respiratory failure secondary to emphysema on chronic 2 L of O2, RAKESH on CPAP, H/O CVA, CAD, hypothyroidism, prediabetes, depression, schizoaffective disorder, PTSD who presented with elevated temperature and reported confusion prior to arrival. Encephalopathy--Resolved DD: Metabolic in setting of hyponatremia Medication induced as per patient--due to Ativan --CT Head:There is no hemorrhage, mass effect, or evidence of acute territorial ischemia by CT criteria. Advanced confluent change throughout the subcortical and periventricular white matter likely represents microangiopathic disease. This could also represent treatment related change if there has been a history of brain radiation. This is unchanged from prior studies and clinical correlation will be essential. --Mental status back to baseline --Less likely UTI--given asymptomatic and afebrile currently. Receiving IV Rocephin --Blood Cx:No growth to date (3) Elevated troponin: Likely demand ischemia due to uncontrolled HTN on admission Denies any Angina Symptoms ECHO: No wall motion abnormality She is without complaint of chest pain and no EKG changes EKG: no signs of Ischemia (4) Chronic hyponatremia: Likely due to SIADH in setting of small cell lung cancer Sodium level improved to 130 today Continue fluid restriction 1.2 liters/day upon discharge Continue urea sodium 15mg Twice a day Appreciate nephrology input Monitor sodium levels Needs repeat BMP in 1 week upon discharge (5) Small cell lung cancer in adult: Recently diagnosed Follows with thoracic medicine in [place] Follows with Dr. Nolasco for oncology Chemo Port placement by Dr. Bergeron on 11/12/19 Planned to be started on Chemotherapy as outpatient (6) Paroxysmal A-fib: Continue flecainide and verapamil On Eliquis for anticoagulation (7) CAD (coronary artery disease): Follows [facility] [place] cardiology continue Aspirin, statin, lisinopril (8) COPD (chronic obstructive pulmonary disease): Chronic Hypoxic Respiratory Failure on 2L of O2 Continue usual meds (9) Hypertension: Last admission, lisinopril increased to 20 mg twice daily and verapamil increased to 360 mg daily BP variable continue lisinopril and verapamil monitor (10) RAKESH on CPAP: CPAP at (11) Pre-diabetes: Last A1c 5.8 3/18/20 Hold PO meds while hospitalized Novolog sliding scale per protocol (12) Left rib fracture: Secondary to fall dx nondistracted left anterior 8th and 9th rib fractures seen on the rib series conservative management (13) Schizoaffective disorder: mood stable continue navane (14) Chronic cerebral ischemia: Outpatient brain MRI 10/2019 which revealed chronic microvascular ischemic white matter changes On ASA, statin, Eliquis (15) Hypothyroidism: Continue levothyroxine and Cytomel TSH: Normal (16) DVT prophylaxis: On Eliquis Code Status Full Code Admission and Anticipated Discharge Date Admission Date: November 14, 2019 Subjective Patient is seen and examined at bedside Doing well today Still has some soreness at the Chemo-Port site Sodium levels improved to 130 today Discussed with Nephrology today Offers no other complaints Review of Systems Review of Systems: All systems reviewed & are unremarkable except as noted in HPI & below Physical Exam Physical Exam: Physical Exam: Vitals signs as noted above General Appearance:Moderately built and nourished, no apparent distress Head: normocephalic, Atraumatic Eyes: normal inspection, EOMI Neck: supple, Trachea midline Respiratory/Chest: Decreased breath sounds, CTA, + Chemo Port Cardiovascular: S1, S2, No murmur Abdomen/GI:Soft, Non tender, Bowel sounds present Extremities/Musculoskelatal:normal inspection, no edema Neurologic/Psych:AAOX3, grossly no focal neurological deficits Skin: normal color, warm Results & Data Results & Data ([facility]) Vital Signs (Past 12 Hours) Vital Signs Temp Pulse Pulse Resp BP BP Pulse Ox 11/15/19 11:09 36.9 C 76 18 130/77 93 11/15/19 07:24 36.9 C 79 18 173/85 H 96 11/15/19 04:05 70 18 97 11/15/19 03:15 36.6 C 70 16 169/78 H 98 Laboratory Results Short CBC 11/15/19 Range/Units 05:17 WBC 6.42 (4.8-10.8) K/uL Hgb 9.2 L (12.0-16.0) g/dL Hct 28.9 L (37-47) % Plt Count 253 (130-400) K/uL BMP 11/15/19 05:17 Sodium 130 L Potassium 3.7 D Chloride 96 L Carbon Dioxide 29 BUN 17 Creatinine 0.52 L Glucose 97 Calcium 8.7 (1) Hypertension Hypertension type: essential hypertension Qualified Code(s): I10 - Essential (primary) hypertension (2) Left rib fracture Encounter type: initial encounter Fracture type: closed Rib fracture type: multiple ribs Qualified Code(s): S22.42XA - Multiple fractures of ribs, left side, initial encounter for closed fracture
[2019-11-15 14:32] VITALS: O2SAT 85
--- NOTE | 2019-11-15 14:40 | Discharge Summary ---
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 Of significance patient recently hospitalized 11/05 to 11/12 secondary to chronic hyponatremia in setting of SIADH and known small cell lung CA and polydipsia. She was seen and evaluated by nephrology. Placed on fluid restriction which was adjusted to 1.2 L at discharge. She was also placed on urea 15 g daily. During hospitalization she did undergo right chest wall port placement by Dr. Bergeron due to plan for chemo today. She went to oncology office when it was documented she had a low-grade 99.4 elevated temperature. Notable lab abnormalities included low sodium and elevated LFTs. Due to this she did not undergo her chemo treatment today and was told to come back tomorrow for repeat blood work. When she went home family felt that she was confused and sent her to ED. She elicits that she woke this morning approximately 4 AM and felt, "not herself." When she got up she felt like she was stumbling around and still feels like her gait is off. She denies any documented fever but states when she went into oncology office she felt warm. She denies any chills or sweats, lightheadedness, dizziness, syncope, fall, chest pain, shortness breath, cough, palpitations, nausea, vomiting, abdominal pain. She does elicit to still having some left chest wall pain secondary to old rib fracture. She denies any flank pain. She admits to increased urine frequency but denies any dysuria or hematuria. Her last bowel movement was this morning and normal for her. She has not had anything to eat today. She states when she was discharged yesterday she had eggs for dinner and 3 - 24 oz glasses of water. She states she only drank one small cup of water today. She did not check her blood sugar when feeling, "off." But after drinking boost this morning it did make her feel improved. She denies similar feeling in the past. She is currently living with son and girlfriend and denies any contact with CoVid-19. In ED patient remained hemodynamically stable saturating well on her usual 2 L of O2. She was hypertensive 177/91 but admits to likely not taking her morning meds. Lab work revealed normal WBC, H&H 9.8 and 30.8, platelet 241, sodium 124, chloride 94, BUN 18, creatinine 0.66, glucose 108, lactate 1.3, AST 60, normal ALT, troponin 0.399, TSH WNL. EKG revealed normal sinus rhythm with no ST or T wave changes. Urinalysis currently pending. She did undergo a head CT which is negative for acute intracranial abnormality. Did reveal advanced confluent changes throughout the subcortical and periv entricular white matter likely representing microangiopathic disease. CTA of chest abdomen pelvis revealed no PE, cardiac enlargement and advanced emphysema, known left lung neoplasm, with hilar adenopathy, bronchitis/reactive airway disease, trace pleural effusions, moderate constipation, hepatomegaly. She received IVF while in ED. Admission Exam Per Admitting Provider Physical exam General: Well hydrated, obese, no acute distress and not ill appearing Eyes: PERRL, conjunctivae normal, not pale, anicteric sclerae, EOM intact bilaterally ENMT: External ear and nose normal, oropharynx normal Neck: Normal visual inspection, no tracheal deviation, no swelling noted Respiratory: Normal respiratory effort, no respiratory distress, on nasal oxygen at 2l/min (baseline), mild expiratory rhonchi, no crackles Cardiovascular: Pulse is RRR. S1 S2. No pedal edema Chest (Breasts): Chest: normal inspection of chest Gastrointestinal (Abdomen): Abdomen is not distended, soft, non-tender to palpation, no guarding, no palpable hepatosplenomegaly, normal bowel sounds Musculoskeletal: No cyanosis or clubbing, all extremities motor strength 5/5 Genitourinary: No suprapubic tenderness or CVA tenderness Neurologic: Alert and oriented x 3, No focal weakness, sensation grossly intact Psychiatric: Alert and oriented x 3, euthymic affect Principal Diagnosis Hyponatremia Encephalopathy Discharge Data Allergies Allergy/AdvReac Type Severity Reaction Status Date / Time Beta-Blockers Allergy Severe Confusion; Verified 11/13/19 13:32 (Beta-Adrenergic Bloc Diarrhea; Rash furosemide [From Lasix] Allergy Severe "LUNGS Verified 11/13/19 13:32 CLOSE UP" tetracycline Allergy Intermediate RASH; Verified 11/13/19 13:32 "MYCINS" ALLERGY acetaminophen Allergy Mild GI UPSET Verified 11/13/19 13:32 clindamycin Allergy Unknown "MYCINS" Verified 11/13/19 13:32 ALLERGY diltiazem Allergy Unknown ? Verified 11/13/19 13:32 Sulfa (Sulfonamide Allergy Unknown Unknown Unverified 11/13/19 13:32 Antibiotics) sumatriptan Allergy Unknown "TRIPTANS" Verified 11/13/19 13:32 ALLERGY codeine AdvReac Severe SYNCOPE Verified 11/13/19 13:32 PER PATIENT oxycodone AdvReac Mild GI UPSET Verified 11/13/19 13:32 METAL JEWELRY AdvReac Mild ITCHINESS Uncoded 11/13/19 13:32 "WITH CHEAP JEWELRY" Consultations 11/13/19 16:14 ED Decision to Admit Stat 11/13/19 17:56 Consult Case Management - Discharge Planning Routine Consult Nephrology Routine Procedures Performed CT Head:There is no hemorrhage, mass effect, or evidence of acute territorial ischemia by CT criteria. Advanced confluent change throughout the subcortical and periventricular white matter likely represents microangiopathic disease. This could also represent treatment related change if there has been a history of brain radiation. This is unchanged from prior studies and clinical correlation will be essential. 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 Encephalopathy--Resolved DD: Metabolic in setting of hyponatremia Medication induced as per patient--due to Ativan --CT Head:There is no hemorrhage, mass effect, or evidence of acute territorial ischemia by CT criteria. Advanced confluent change throughout the subcortical and periventricular white matter likely represents microangiopathic disease. This could also represent treatment related change if there has been a history of brain radiation. This is unchanged from prior studies and clinical correlation will be essential. --Mental status back to baseline --Less likely UTI--given asymptomatic and afebrile currently. Received IV Rocephin --Blood Cx:No growth to date (3) Elevated troponin: Likely demand ischemia due to uncontrolled HTN on admission Denies any Angina Symptoms ECHO: No wall motion abnormality She is without complaint of chest pain and no EKG changes EKG: no signs of Ischemia (4) Chronic hyponatremia: Likely due to SIADH in setting of small cell lung cancer Sodium level improved to 130 today Continue fluid restriction 1.2 liters/day upon discharge Continue urea sodium 15mg Twice a day Appreciate nephrology input Monitor sodium levels Needs repeat BMP in 1 week upon discharge (5) Small cell lung cancer in adult: Recently diagnosed Follows with thoracic medicine in [place] Follows with Dr. Nolasco for oncology Chemo Port placement by Dr. Bergeron on 11/12/19 Planned to be started on Chemotherapy as outpatient (6) Paroxysmal A-fib: Continue flecainide and verapamil On Eliquis for anticoagulation (7) CAD (coronary artery disease): Follows [facility] cardiology continue Aspirin, statin, lisinopril (8) COPD (chronic obstructive pulmonary disease): Chronic Hypoxic Respiratory Failure on 2L of O2 Continue usual meds (9) Hypertension: Last admission, lisinopril increased to 20 mg twice daily and verapamil increased to 360 mg daily BP variable continue lisinopril and verapamil monitor (10) RAKESH on CPAP: CPAP at (11) Pre-diabetes: Last A1c 5.8 11/07/19 Hold PO meds while hospitalized Novolog sliding scale per protocol (12) Left rib fracture: Secondary to fall dx nondistracted left anterior 8th and 9th rib fractures seen on the rib series conservative management (13) Schizoaffective disorder: mood stable continue navane (14) Chronic cerebral ischemia: Outpatient brain MRI 10/2019 which revealed chronic microvascular ischemic white matter changes On ASA, statin, Eliquis (15) Hypothyroidism: Continue levothyroxine and Cytomel TSH: Normal (16) DVT prophylaxis: On Eliquis Code Status Full Code Total Time Total Time Spent Total Time Spent (In Minutes): 40 minutes Total Time Includes: Examination of the Patient, Discharge Planning, Medication Reconciliation, Communication With Other Providers and Other Discharge Plan Discharge Items Patient Disposition: Home - Self-Care Reason For Visit: ELEVATED TROPONIN, CONFUSION Discharge Diagnosis: Hyponatremia Activity: Resume your previous activity Exercise/Sports: Gradually increase as tolerated Non-emergency contact: Primary Care Provider and Investor Relations Coordinator Call non-emergency contact if: you have any medication questions, your symptoms worsen, your pain is not controlled, your pain is worsening, your pain is unusual for you, your pain is concerning for you and you have a fever Diet: Heart Healthy Fluids: 1200ml (5 cups) Diet Texture: Easy to Chew Ambulatory Orders: Basic Metabolic Panel (Routine) Timeframe: 1 Week Location: Determined by Patient Ordered By: Benigon Blankenship Attending Provider Instructions: Follow-up with your primary physician Dr. Moralez on 11/16/19 at 9:25AM Follow-up with your station baggage agent Dr. Alford in 2 weeks as advised --Get Blood test (basic metabolic panel) in 1 week and follow-up with your station baggage agent--Dr. Alford with results --Your fluid daily intake is restricted to 1200ml/day as recommended by your station baggage agent --Your blood pressure is variable during your hospital stay. Check your blood pressure regularly at home and discuss with your physician for further adjustment of your blood pressure medications as needed. --Final blood cultures are pending at the time of discharge. Follow-up with your physician for results. Seek immediate medical attention if your symptoms reoccur or worsen Pending Studies at Discharge: Yes Studies:: Blood Cultures Stand-Alone Forms: My [facility] [employer], Smoking Cessation Medications and DC Order Prescriptions: New potassium chloride 20 mEq Packet 20 meq PO QAM Qty: 30 RF: 0 Continued ipratropium-albuterol 0.5 mg-3 mg(2.5 mg base)/3 mL solution for nebulization 3 ml inhalation Q4H PRN (Reason: Shortness Of Breath Or Wheezing) RF: 0 apixaban 5 mg tablet 5 mg PO BID Qty: 180 RF: 0 flecainide 100 mg tablet 100 mg PO BID Qty: 180 RF: 0 levothyroxine 100 mcg tablet 100 mcg PO DAILYBB RF: 0 omeprazole 20 mg capsule,delayed release(DR/EC) 20 mg PO BID RF: 0 pravastatin 40 mg tablet 80 mg PO HS Qty: 180 RF: 0 montelukast 10 mg tablet 10 mg PO HS RF: 0 thiothixene 5 mg capsule 5 mg PO HS RF: 0 fluticasone propion-salmeterol [Advair Diskus] 250-50 mcg/dose blister with device 1 puffs INH QDD RF: 0 albuterol sulfate [Ventolin HFA] 90 mcg/actuation HFA aerosol inhaler 1 puffs INH .COMPLEX PRN (Reason: Shortness Of Breath Or Wheezing) RF: 0 bupropion HCl 200 mg tablet sustained-release 12 hr 200 mg PO QAM RF: 0 lisinopril 10 mg tablet 20 mg PO BID RF: 0 verapamil 360 mg Capsule,Ext Rel. Pellets 24 Hr 360 mg PO DAILY RF: 0 metformin 500 mg Tablet 500 mg PO BID RF: 0 aspirin 81 mg Tablet,Delayed Release (Dr/Ec) 81 mg PO HS RF: 0 Spiriva with HandiHaler 18 mcg capsule, w/inhalation device 18 mcg INHALATION QDD RF: 0 ondansetron HCl 8 mg tablet 8 mg PO UD PRN (Reason: nausea/vomiting) RF: 0 prochlorperazine maleate [Compazine] 10 mg tablet 10 mg PO UD PRN (Reason: Nausea) RF: 0 sennosides-docusate sodium [Senokot-S] 8.6-50 mg Tablet 1 tab PO QAM PRN (Reason: constipation) Qty: 30 RF: 0 urea 15 gram powder in packet 1 pkt PO DAILY 14 Days Qty: 8 RF: 0 Discontinued lorazepam 0.5 mg tablet 0.5 mg PO BID RF: 0 Discharge Orders: Discharge Order (Routine); Ordered 11/15/19 Ordered By: Benigno Shannon Admission Data Admit Date/Time: 11/14/19 08:24 Attending Provider: Benigno Shannon Admit Provider: Cindy Fields I. Primary Care Provider: Dmitry Roland Other Providers: Cindy Fields I. ; Radha Alford Other Interventions: Discharge Summary Assessment (RN) Last Done: 11/15/19 14:46 DC Date/Time DO NOT enter until pt leaves facility: 11/15/19 15:56
== END 2019-11-15 15:56 | disposition home or self-care (01) | DRG 643 ==
LOC: 2S 12:38 → ED 12:38 → SUATTDRO 16:29 → 2S 17:17

== ENCOUNTER 2020-07-21 14:19 | Observation (INO) ==
[2020-07-21] MEDS ORDERED: SODIUM CHLORIDE 0.9% 1000ML 1,000 ML IV SCH (15:00)
[2020-07-21 15:35] LABS: Hematocrit (blood only) 36.1 % (37-47); Hemoglobin 11.7 g/dL (12.0-16.0); Immature Granulocytes # (auto) 0.01 K/uL (0.00-0.02); Immature Granulocytes % (auto) 0.2 %; Lymphocytes # (auto) 0.72 K/uL (1.2-3.4); Lymphocytes % (auto) 12.8 %; Mean Corpuscular Hemoglobin 25.9 pg (25-34); Mean Corpuscular Hgb Conc 32.4 g/dL (32-36); Mean Corpuscular Volume 79.9 fL (80-100); Mean Platelet Volume 9.8 fL (7.4-10.4); Monocytes # (auto) 0.68 K/uL (0.11-0.59); Monocytes % (auto) 12.1 %; Neutrophils # (auto) 4.23 K/uL (1.4-6.5); Neutrophils % (auto) 74.9 %; Platelet Count 256 K/uL (130-400); RDW Coefficient of Variation 21.1 % (11.5-14.5); RDW Standard Deviation 62.6 fL (36.4-46.3); Red Blood Count 4.52 M/uL (4.2-5.4); White Blood Count 5.64 K/uL (4.8-10.8)
--- NOTE | 2020-07-21 15:37 | Emergency Department Note ---
History of Present Illness General Chief complaint: Confusion Time Seen by Provider: 07/21/20 14:43 Source: patient Mode of arrival: EMS Limitations: no limitations History of Present Illness Provider complaint: Weakness Onset (ago): day(s) 4 Associated symptoms: + loss of appetite, + malaise, + nausea/vomiting and + weakness Treatments prior to arrival: none This is a 59-year-old female with complicated past medical history who presents due to concern for worsening weakness. Patient states she was seen and evaluated here last for weakness also and was ultimately sent home. Patient states last she noticed that she was having difficulty writing. She states that this is happened before, and has been a persistent finding since a prior stroke. Patient states it is intermittent now, and she is not aware of any triggers or patterns to these episodes. Patient states she felt that she was less weak and improving over the weekend until today when she felt worse. Patient states she feels better when she eats, however she usually only gets to eat dinner because her son whom she lives with has to prepare her food and he sleeps in so late that she does not typically get lunch. Patient denies any change in medications. Patient denies any change in bowel movements, and then mentions "I think I might have a UTI". Patient denies fevers or chills, cough or cold symptoms, chest pain, abdominal pain, shortness of breath, dizziness, vision changes. Patient states she does not wear home oxygen despite it being listed in her history. Pt seen during a time of high acuity and national emergency pandemic while wearing PPE. Home Medications Medication Instructions Recorded Confirmed Type apixaban 5 mg tablet 5 mg PO BID #180 tab 03/14/19 07/21/20 History flecainide 100 mg tablet 100 mg PO BID #180 tab 03/14/19 07/21/20 History levothyroxine 100 mcg tablet 100 mcg PO DAILYBB tab 03/14/19 07/21/20 History montelukast 10 mg tablet 10 mg PO HS tab 03/14/19 07/21/20 History omeprazole 20 mg capsule,delayed 20 mg PO BID cap 03/14/19 07/21/20 History release albuterol sulfate 90 mcg/actuation 2 puffs INH Q6H PRN 03/27/19 07/21/20 History aerosol inhaler bupropion HCl 200 mg tablet,12 hr 200 mg PO QAM ea 03/27/19 07/21/20 History sustained-release sennosides-docusate sodium 1 tab PO QAM PRN #30 tab 11/12/19 07/21/20 Rx [Senokot-S] Oxygen Home #1 ea 11/20/19 07/21/20 History calcium carbonate 500 mg calcium 500 mg PO DAILY 11/20/19 07/21/20 History (1,250 mg) tablet liothyronine 5 mcg tablet 5 mcg PO BID tab 11/20/19 07/21/20 History magnesium oxide 400 mg PO DAILY 11/20/19 07/21/20 History metformin 1,000 mg tablet 1,000 mg PO BID 11/20/19 07/21/20 History multivitamin 1 tab PO DAILY 11/20/19 07/21/20 History ondansetron HCl 8 mg tablet 8 mg PO TID PRN tab 11/20/19 07/21/20 History prochlorperazine maleate 10 mg 10 mg PO Q6H PRN tab 11/20/19 07/21/20 History tablet verapamil 240 mg 24 hr 240 mg PO DAILY 11/20/19 07/21/20 History capsule,extended release fluticasone propionate 50 2 sprays INTNAS DAILY PRN 11/22/19 07/21/20 History mcg/actuation nasal spray,suspension thiothixene 5 mg capsule 5 mg PO DAILY cap 11/22/19 07/21/20 History tiotropium bromide 18 mcg capsule 18 mcg INHALATION DAILY puffs 01/21/20 07/21/20 History with inhalation device albuterol sulfate 2.5 mg INH Q6H PRN 04/01/20 07/21/20 History tizanidine 2 mg capsule 2 mg PO HS PRN cap 04/01/20 07/21/20 History fluticasone propion-salmeterol 1 ea INHALATION BID 07/21/20 07/21/20 History [Emelynxela Inhub] lisinopril 20 mg PO BID 07/21/20 07/21/20 History pravastatin 80 mg PO DAILY 07/21/20 07/21/20 History prednisone 0 mg PO .TAPER UD 07/21/20 07/21/20 History urea 1 packet PO DAILY 07/21/20 07/21/20 History aspirin 162 mg PO HS #30 tab 07/22/20 07/21/20 Rx Allergies Allergy/AdvReac Type Severity Reaction Status Date / Time Beta-Blockers Allergy Severe Confusion; Verified 07/21/20 18:11 (Beta-Adrenergic Bloc Diarrhea; Rash furosemide [From Lasix] Allergy Severe "LUNGS Verified 07/21/20 18:11 CLOSE UP" tetracycline Allergy Intermediate RASH; Verified 07/21/20 18:11 "MYCINS" ALLERGY acetaminophen Allergy Mild GI UPSET Verified 07/21/20 18:11 clindamycin Allergy Unknown "MYCINS" Verified 07/21/20 18:11 ALLERGY diltiazem Allergy Unknown ? Verified 07/21/20 18:11 Sulfa (Sulfonamide Allergy Unknown Unknown Verified 07/21/20 18:11 Antibiotics) sumatriptan Allergy Unknown "TRIPTANS" Verified 07/21/20 18:11 ALLERGY morphine Allergy Unknown Verified 07/21/20 18:11 codeine AdvReac Severe SYNCOPE Verified 07/21/20 18:11 PER PATIENT oxycodone AdvReac Mild GI UPSET Verified 07/21/20 18:11 METAL JEWELRY AdvReac Mild ITCHINESS Uncoded 05/12/20 13:27 "WITH CHEAP JEWELRY" Past Med/Surg History Medical History (Updated 07/22/20 @ 20:03 by Shell Valencia DO) Abnormal mammography CAD (coronary artery disease) Chronic cerebral ischemia Chronic hyponatremia Chronic respiratory failure with hypoxia Common migraine without aura Contusion of left hip COPD (chronic obstructive pulmonary disease) On oxygen Depression Diaphragmatic hernia Diverticulosis of colon Dizziness DS (disseminated sclerosis) Dyslipidemia Dysmetabolic syndrome X Eczema Encounter for pre-operative examination GERD (gastroesophageal reflux disease) Hearing loss HTN (hypertension) Hypothyroidism Memory loss Migraines Neuropathy Non-occlusive coronary artery disease Old anteroseptal myocardial infarction (2004) RAKESH on CPAP Osteoporosis, unspecified Paroxysmal A-fib Presence of stent in LAD coronary artery (2004) Schizoaffective disorder SIADH (syndrome of inappropriate ADH production) Small cell carcinoma of lung Unspecified osteomyelitis, ankle and foot Surgical History History of bunionectomy History of colonoscopy History of coronary angioplasty Stent by Dr. Bryan History of tubal ligation History of wisdom tooth extraction Family History Father , 56yo Hypertension Liver cancer Migraines Mother , at 65yo Breast cancer Diabetes Hypertension Emphysema lung Brother No problems noted. Sister Diabetes Liver cancer H/O liver transplant Hypertension Son No problems noted. Son Prediabetes Social History Smoking Status: Former smoker Tobacco Type: Cigarettes Cigarettes Per Day: 2-2.5 packs per day; Second Hand Exposure: No; Do You Dip or Chew Tobacco: No; Hx Alcohol Use: No Hx Substance Use: No Preferred Language: Polish Communication Ability: Effective Visual Impairment: No Limitations Hearing Ability: Normal Press Service Reader Required: No Beliefs That Will Affect Care: None marital status: Current Living Situation: Family Current Living Situation Comment: Son and grandchild current occupational status: unemployed current occupation: On disability How many Children do You have: 2 Other Information That Helps Us Care for You: No Feels Safe at Home: Yes Safety Concerns: Feels Safe At This Time Diet Comment: High protein diet, fluid restriction, diabetic diet; caffeine: No during the past year weight has: decreased > 10 lbs Assistive Devices: CPAP Review of Systems See HPI for pertinent positives & negatives. and A total of 10 systems reviewed and were otherwise negative Physical Exam Vital Signs Vital Signs - 24 hr 07/21/20 14:25 07/21/20 15:04 Temperature 36.7 C Temperature Source Oral Pulse Rate 102 H Respiratory Rate 18 Respiratory Effort / Characteristics Non-Labored Spontaneous Respiratory Depth Normal Blood Pressure 142/81 H Blood Pressure Mean 101 Blood Pressure Position Lying Pulse Oximetry 95 95 Oxygen Delivery Method Room Air Room Air Sepsis Recent Fever Within 48 Hours No Sepsis New/Unexplained Change in Mental Status N/A Sepsis Action Taken by Nursing No Action Required GENERAL: alert, well appearing, well nourished, no distress, non-toxic, alopecia, wearing a hat EYE EXAM: normal conjunctiva, PERRL and EOM's grossly intact OROPHARYNX: no exudate, no erythema, lips, buccal mucosa, and tongue normal and mucous membranes are moist NECK: supple, no nuchal rigidity, no adenopathy, non-tender LUNGS: Clear to auscultation. Normal chest wall mechanics, no w/r/r, no increased work of breathing HEART: no murmurs, S1 normal and S2 normal ABDOMEN: abdomen soft, non-tender, normo-active bowel sounds, no masses, no rebound or guarding. BACK: Back is symmetrical on inspection and there is no deformity, no midline tenderness, no CVA tenderness. SKIN: no rashes and no bruising UPPER EXTREMITIES: upper extremities are grossly normal. FROM, nml pulses b/l. LOWER EXTREMITIES: No pitting edema. FROM, nml pulses b/l. NEURO EXAM: Normal sensorium, cranial nerves II-XII grossly intact, normal speech, no facial droop, no gross weakness of arms, no gross weakness of legs. Gross sensation intact. Course Administered Medications Discontinued Medications Apixaban (Apixaban 5 Mg Tablet) 5 mg PO BID [facility] Stop: 08/20/20 20:59 Last Admin: 07/22/20 08:02 Dose: 5 mg Documented by: [id number] Admin: 07/21/20 21:37 Dose: 5 mg Documented by: [id number] Aspirin (Aspirin 81 Mg Ectab) 162 mg PO QAM [facility] Stop: 08/20/20 20:01 Last Admin: 07/22/20 08:03 Dose: 162 mg Documented by: [id number] Admin: 07/21/20 21:36 Dose: 162 mg Documented by: [id number] Bupropion HCl (Bupropion Sr 100 Mg Tabcr) 200 mg PO QAM [facility] Stop: 08/21/20 08:59 Last Admin: 07/22/20 08:01 Dose: 200 mg Documented by: [id number] Calcium Carbonate (Calcium Carbonate 1250mg Tab) 1,250 mg PO DAILY [facility] Stop: 08/21/20 08:59 Last Admin: 07/22/20 08:13 Dose: Not Given Documented by: [id number] Flecainide Acetate (Flecainide Acetate 100 Mg Tablet) 100 mg PO BID [facility] Stop: 08/20/20 20:59 Last Admin: 07/22/20 08:01 Dose: 100 mg Documented by: [id number] Admin: 07/21/20 21:38 Dose: 100 mg Documented by: [id number] Fluticasone/Vilanterol (Fluticasone/Vilanterol 100/25mcg 14 Puffs/Inhaler) 1 puffs INH DAILY [facility] Stop: 08/21/20 08:59 Last Admin: 07/22/20 08:01 Dose: 1 puffs Documented by: [id number] Gadobutrol (Gadobutrol 65ml Vial) 7.6 ml IV ONCE ONE Stop: 07/21/20 22:35 Last Admin: 07/21/20 22:35 Dose: 7.6 ml Documented by: [id number] Heparin Sodium (Porcine) (Heparin 100 Unit/Ml 5ml Flush) 5 ml FLUSH PRN PRN PRN Reason: Flush Stop: 08/20/20 22:10 Last Admin: 07/22/20 16:46 Dose: 5 ml Documented by: [id number] Sodium Chloride (Nss 1000ml) 1,000 mls @ 999 mls/hr IV .Q1H1M [facility] Stop: 07/21/20 16:00 Last Infusion: 07/21/20 16:48 Dose: 0 mls/hr Documented by: [id number] Admin: 07/21/20 15:34 Dose: 999 mls/hr Documented by: [id number] Magnesium Sulfate/Dextrose (Magnesium Sulfate / D5w) 1 gm in 100 mls @ 100 mls/hr IV NOW STA Stop: 07/21/20 18:15 Last Infusion: 07/21/20 18:30 Dose: 0 mls/hr Documented by: [id number] Admin: 07/21/20 17:33 Dose: 100 mls/hr Documented by: [id number] Levofloxacin/Dextrose (Levaquin/D5w) 750 mg in 150 mls @ 100 mls/hr IV NOW STA Stop: 07/21/20 18:49 Last Infusion: 07/21/20 21:51 Dose: 0 mls/hr Documented by: [id number] Admin: 07/21/20 18:28 Dose: 100 mls/hr Documented by: [id number] Sodium Chloride (Nss 1000ml) 1,000 mls @ 80 mls/hr IV .[id number] [facility] Stop: 08/20/20 20:01 Last Admin: 07/22/20 08:00 Dose: 80 mls/hr Documented by: [id number] Infusion: 07/22/20 08:00 Dose: 80 mls/hr Documented by: [id number] Admin: 07/21/20 21:01 Dose: 80 mls/hr Documented by: [id number] Insulin Aspart (Insulin Aspart 100 Units/Ml 3 Ml Pen) 0 units SC ACHS [facility] Stop: 08/20/20 20:59 Last Admin: 07/22/20 17:41 Dose: Not Given Documented by: [id number] Cosigned by: [id number] Admin: 07/22/20 12:07 Dose: 3 units Documented by: [id number] Cosigned by: [id number] Admin: 07/22/20 07:59 Dose: 2 units Documented by: [id number] Cosigned by: [id number] Admin: 07/21/20 21:39 Dose: 2 units Documented by: [id number] Cosigned by: [id number] Ioversol (Optiray 320 125ml) 118 ml IV ONCE ONE Stop: 07/21/20 20:32 Last Admin: 07/22/20 00:43 Dose: Not Given Documented by: [id number] Levothyroxine Sodium (Levothyroxine Sodium 100 Mcg Tablet) 100 mcg PO DAILYBB [facility] Stop: 08/21/20 06:29 Last Admin: 07/22/20 06:08 Dose: 100 mcg Documented by: [id number] Liothyronine Sodium (Liothyronine Sodium 5 Mcg Tab) 5 mcg PO BID@0600,1800 [facility] Stop: 08/20/20 20:59 Last Admin: 07/22/20 17:16 Dose: 5 mcg Documented by: [id number] Admin: 07/22/20 06:08 Dose: 5 mcg Documented by: [id number] Admin: 07/21/20 21:37 Dose: 5 mcg Documented by: [id number] Lisinopril (Lisinopril 20 Mg Tab) 20 mg PO BID [facility] Stop: 08/20/20 20:59 Last Admin: 07/22/20 08:02 Dose: 20 mg Documented by: [id number] Admin: 07/21/20 21:36 Dose: 20 mg Documented by: [id number] Magnesium Oxide (Magnesium Oxide 400 Mg Tab) 400 mg PO DAILY [facility] Stop: 08/21/20 08:59 Last Admin: 07/22/20 08:13 Dose: Not Given Documented by: [id number] Montelukast Sodium (Montelukast Sodium 10 Mg Tablet) 10 mg PO HS [facility] Stop: 08/20/20 20:59 Last Admin: 07/21/20 21:38 Dose: 10 mg Documented by: [id number] Multivitamins (Multivitamin Tab) 1 tab PO DAILY [facility] Stop: 08/21/20 08:59 Last Admin: 07/22/20 08:02 Dose: 1 tab Documented by: [id number] Pantoprazole Sodium (Pantoprazole 40 Mg Tab) 40 mg PO BID [facility] Stop: 08/20/20 20:59 Last Admin: 07/22/20 08:02 Dose: 40 mg Documented by: [id number] Admin: 07/21/20 21:38 Dose: 40 mg Documented by: [id number] Pravastatin Sodium (Pravastatin Sod 40 Mg Tab) 80 mg PO DAILY [facility] Stop: 08/21/20 08:59 Last Admin: 07/22/20 08:02 Dose: 80 mg Documented by: [id number] Prednisone (Prednisone 5 Mg Tab) 5 mg PO DAILY [facility] Stop: 07/24/20 08:59 Last Admin: 07/22/20 08:02 Dose: 5 mg Documented by: [id number] Umeclidinium [place] (Umeclidinium [place] 62.5mcg/Blister 7 Puffs/Inhaler) 1 puffs INH DAILY [facility] Stop: 08/21/20 08:59 Last Admin: 07/22/20 08:08 Dose: 1 puffs Documented by: [id number] Urea (Urea (Ure-Na) 15 Gm Pack) 15 gm PO DAILY [facility] Stop: 08/21/20 08:59 Last Admin: 07/22/20 08:03 Dose: 15 gm Documented by: [id number] Verapamil HCl (Verapamil Hcl 240 Mg Tabcr) 240 mg PO DAILY [facility] Stop: 08/21/20 08:59 Last Admin: 07/22/20 08:02 Dose: 240 mg Documented by: [id number] Medical Decision Making Differential Diagnosis Differential Diagnosis includes but is not limited to dehydration, stroke, anemia, hypoglycemia, hyponatremia, hypernatremia, urinary tract infection, pneumonia, bronchitis, sepsis, gastroenteritis, additional abdominal pathology, metabolic abnormalities and infections. Medical Records Attestation: I reviewed the patient's medical records. Home Medications Current Medication List: was personally reviewed by me Laboratory Data Attestation: I reviewed the patient's lab results. Result diagrams: 07/22/20 06:14 07/22/20 06:14 Lab Results 07/21/20 07/21/20 07/21/20 Range/Units 14:26 15:24 15:24 WBC 5.64 (4.8-10.8) K/uL RBC 4.52 (4.2-5.4) M/uL Hgb 11.7 L (12.0-16.0) g/dL Hct 36.1 L (37-47) % MCV 79.9 L (80-100) fL MCH 25.9 (25-34) pg MCHC 32.4 (32-36) g/dL RDW Std Deviation 62.6 H (36.4-46.3) fL RDW Coeff of Chepe 21.1 H (11.5-14.5) % Plt Count 256 (130-400) K/uL MPV 9.8 (7.4-10.4) fL Immature Gran % (Auto) 0.2 % Neut % (Auto) 74.9 % Lymph % (Auto) 12.8 % [place] % (Auto) 12.1 % Eos % (Auto) 0.0 % Baso % (Auto) 0.0 % Neut # (Auto) 4.23 (1.4-6.5) K/uL Lymph # (Auto) 0.72 L (1.2-3.4) K/uL [place] # (Auto) 0.68 H (0.11-0.59) K/uL Eos # (Auto) 0.00 (0-0.5) K/uL Baso # (Auto) 0.00 (0-0.2) K/uL Immature Gran # (Auto) 0.01 (0.00-0.02) K/uL Anisocytosis Present PT 10.9 (9.0-12.0) Seconds INR 1.0 (0.9-1.1) APTT 48.8 H* (21.0-31.0) Seconds PTT Ratio 1.7 Sodium (136-145) mmol/L Potassium (3.5-5.1) mmol/L Chloride (98-107) mmol/L Carbon Dioxide (21-32) mmol/L Anion Gap (3-11) BUN (7-18) mg/dl Creatinine (0.6-1.2) mg/dl Est Cr Clr Drug Dosing ml/min Est GFR ( Amer) Est GFR (Non-Af Amer) BUN/Creatinine Ratio (10-20) Glucose (70-99) mg/dl POC Glucose 101 H (70-99) mg/dl Lactate (0.4-2.0) mmol/L Calcium (8.5-10.1) mg/dl Magnesium (1.8-2.4) mg/dl Total Bilirubin (0.2-1) mg/dl AST (15-37) U/L ALT (12-78) U/L Alkaline Phosphatase (45-117) U/L Troponin I (0-0.045) ng/ml Total Protein (6.4-8.2) gm/dl Albumin (3.4-5.0) gm/dl Globulin (2.5-4.0) gm/dl Albumin/Globulin Ratio (0.9-2) Procalcitonin (0-0.5) ng/ml Urine Color Urine Appearance (Clear) Urine pH (4.5-7.5) Ur Specific [place] (1.000-1.030) Urine Protein (Negative) Urine Glucose (UA) (Negative) Urine Ketones (Negative) Urine Blood (Negative) Urine Nitrite (Negative) Urine Bilirubin (Negative) Urine Urobilinogen (Negative) Ur Leukocyte Esterase (Negative) COVID-19 Eval Order Influ A Molecular Assay (Negative) Influ B Molecular Assay (Negative) SARS-CoV-2, RNA, NAAT (NEGATIVE) 07/21/20 07/21/20 07/21/20 Range/Units 15:24 15:24 15:24 WBC (4.8-10.8) K/uL RBC (4.2-5.4) M/uL Hgb (12.0-16.0) g/dL Hct (37-47) % MCV (80-100) fL MCH (25-34) pg MCHC (32-36) g/dL RDW Std Deviation (36.4-46.3) fL RDW Coeff of Chepe (11.5-14.5) % Plt Count (130-400) K/uL MPV (7.4-10.4) fL Immature Gran % (Auto) % Neut % (Auto) % Lymph % (Auto) % [place] % (Auto) % Eos % (Auto) % Baso % (Auto) % Neut # (Auto) (1.4-6.5) K/uL Lymph # (Auto) (1.2-3.4) K/uL [place] # (Auto) (0.11-0.59) K/uL Eos # (Auto) (0-0.5) K/uL Baso # (Auto) (0-0.2) K/uL Immature Gran # (Auto) (0.00-0.02) K/uL Anisocytosis PT (9.0-12.0) Seconds INR (0.9-1.1) APTT (21.0-31.0) Seconds PTT Ratio Sodium 131 L (136-145) mmol/L Potassium 4.2 (3.5-5.1) mmol/L Chloride 100 (98-107) mmol/L Carbon Dioxide 24 (21-32) mmol/L Anion Gap 7.0 (3-11) BUN 10 (7-18) mg/dl Creatinine 0.69 (0.6-1.2) mg/dl Est Cr Clr Drug Dosing 80.4 ml/min Est GFR ( Amer) 108.9 Est GFR (Non-Af Amer) 94.0 BUN/Creatinine Ratio 14.5 (10-20) Glucose 105 H (70-99) mg/dl POC Glucose (70-99) mg/dl Lactate 3.4 H* (0.4-2.0) mmol/L Calcium 9.1 (8.5-10.1) mg/dl Magnesium 1.7 L (1.8-2.4) mg/dl Total Bilirubin 0.2 (0.2-1) mg/dl AST 7 L (15-37) U/L ALT 16 (12-78) U/L Alkaline Phosphatase 61 (45-117) U/L Troponin I < 0.015 (0-0.045) ng/ml Total Protein 6.7 (6.4-8.2) gm/dl Albumin 3.3 L (3.4-5.0) gm/dl Globulin 3.4 (2.5-4.0) gm/dl Albumin/Globulin Ratio 1.0 (0.9-2) Procalcitonin < 0.05 (0-0.5) ng/ml Urine Color Urine Appearance (Clear) Urine pH (4.5-7.5) Ur Specific [place] (1.000-1.030) Urine Protein (Negative) Urine Glucose (UA) (Negative) Urine Ketones (Negative) Urine Blood (Negative) Urine Nitrite (Negative) Urine Bilirubin (Negative) Urine Urobilinogen (Negative) Ur Leukocyte Esterase (Negative) COVID-19 Eval Order Influ A Molecular Assay (Negative) Influ B Molecular Assay (Negative) SARS-CoV-2, RNA, NAAT (NEGATIVE) 07/21/20 07/21/20 07/21/20 Range/Units 16:50 16:51 16:51 WBC (4.8-10.8) K/uL RBC (4.2-5.4) M/uL Hgb (12.0-16.0) g/dL Hct (37-47) % MCV (80-100) fL MCH (25-34) pg MCHC (32-36) g/dL RDW Std Deviation (36.4-46.3) fL RDW Coeff of Chepe (11.5-14.5) % Plt Count (130-400) K/uL MPV (7.4-10.4) fL Immature Gran % (Auto) % Neut % (Auto) % Lymph % (Auto) % [place] % (Auto) % Eos % (Auto) % Baso % (Auto) % Neut # (Auto) (1.4-6.5) K/uL Lymph # (Auto) (1.2-3.4) K/uL [place] # (Auto) (0.11-0.59) K/uL Eos # (Auto) (0-0.5) K/uL Baso # (Auto) (0-0.2) K/uL Immature Gran # (Auto) (0.00-0.02) K/uL Anisocytosis PT (9.0-12.0) Seconds INR (0.9-1.1) APTT (21.0-31.0) Seconds PTT Ratio Sodium (136-145) mmol/L Potassium (3.5-5.1) mmol/L Chloride (98-107) mmol/L Carbon Dioxide (21-32) mmol/L Anion Gap (3-11) BUN (7-18) mg/dl Creatinine (0.6-1.2) mg/dl Est Cr Clr Drug Dosing ml/min Est GFR ( Amer) Est GFR (Non-Af Amer) BUN/Creatinine Ratio (10-20) Glucose (70-99) mg/dl POC Glucose (70-99) mg/dl Lactate (0.4-2.0) mmol/L Calcium (8.5-10.1) mg/dl Magnesium (1.8-2.4) mg/dl Total Bilirubin (0.2-1) mg/dl AST (15-37) U/L ALT (12-78) U/L Alkaline Phosphatase (45-117) U/L Troponin I (0-0.045) ng/ml Total Protein (6.4-8.2) gm/dl Albumin (3.4-5.0) gm/dl Globulin (2.5-4.0) gm/dl Albumin/Globulin Ratio (0.9-2) Procalcitonin (0-0.5) ng/ml Urine Color Urine Appearance (Clear) Urine pH (4.5-7.5) Ur Specific [place] (1.000-1.030) Urine Protein (Negative) Urine Glucose (UA) (Negative) Urine Ketones (Negative) Urine Blood (Negative) Urine Nitrite (Negative) Urine Bilirubin (Negative) Urine Urobilinogen (Negative) Ur Leukocyte Esterase (Negative) COVID[facility]19 [facility] A Molecular Assay Negative (Negative) Influ B Molecular Assay Negative (Negative) SARS-CoV-2, RNA, NAAT NEGATIVE (NEGATIVE) 07/21/20 07/21/20 Range/Units 17:08 18:08 WBC (4.8-10.8) K/uL RBC (4.2-5.4) M/uL Hgb (12.0-16.0) g/dL Hct (37-47) % MCV (80-100) fL MCH (25-34) pg MCHC (32-36) g/dL RDW Std Deviation (36.4-46.3) fL RDW Coeff of Chepe (11.5-14.5) % Plt Count (130-400) K/uL MPV (7.4-10.4) fL Immature Gran % (Auto) % Neut % (Auto) % Lymph % (Auto) % [place] % (Auto) % Eos % (Auto) % Baso % (Auto) % Neut # (Auto) (1.4-6.5) K/uL Lymph # (Auto) (1.2-3.4) K/uL [place] # (Auto) (0.11-0.59) K/uL Eos # (Auto) (0-0.5) K/uL Baso # (Auto) (0-0.2) K/uL Immature Gran # (Auto) (0.00-0.02) K/uL Anisocytosis PT (9.0-12.0) Seconds INR (0.9-1.1) APTT (21.0-31.0) Seconds PTT Ratio Sodium (136-145) mmol/L Potassium (3.5-5.1) mmol/L Chloride (98-107) mmol/L Carbon Dioxide (21-32) mmol/L Anion Gap (3-11) BUN (7-18) mg/dl Creatinine (0.6-1.2) mg/dl Est Cr Clr Drug Dosing ml/min Est GFR ( Amer) Est GFR (Non-Af Amer) BUN/Creatinine Ratio (10-20) Glucose (70-99) mg/dl POC Glucose (70-99) mg/dl Lactate 2.9 H* (0.4-2.0) mmol/L Calcium (8.5-10.1) mg/dl Magnesium (1.8-2.4) mg/dl Total Bilirubin (0.2-1) mg/dl AST (15-37) U/L ALT (12-78) U/L Alkaline Phosphatase (45-117) U/L Troponin I (0-0.045) ng/ml Total Protein (6.4-8.2) gm/dl Albumin (3.4-5.0) gm/dl Globulin (2.5-4.0) gm/dl Albumin/Globulin Ratio (0.9-2) Procalcitonin (0-0.5) ng/ml Urine Color Yellow Urine Appearance Clear (Clear) Urine pH 6.0 (4.5-7.5) Ur Specific [place] 1.005 (1.000-1.030) Urine Protein Negative (Negative) Urine Glucose (UA) Negative (Negative) Urine Ketones Negative (Negative) Urine Blood Negative (Negative) Urine Nitrite Negative (Negative) Urine Bilirubin Negative (Negative) Urine Urobilinogen Negative (Negative) Ur Leukocyte Esterase Negative (Negative) COVID-19 Eval Order Influ A Molecular Assay (Negative) Influ B Molecular Assay (Negative) SARS-CoV-2, RNA, NAAT (NEGATIVE) Imaging Data Radiologist's Impression: CT head/brain wo con CLINICAL HISTORY: weakness, nausea COMPARISON STUDY: 11/13/2019 TECHNIQUE: Axial CT of the brain is performed from the vertex to the skull base. IV contrast was not administered for this examination. A dose lowering technique was utilized adhering to the principles of ALARA. CT DOSE: 614.27 mGy.cm FINDINGS: No intra or extra-axial mass lesions are visualized. There is no CT evidence of acute cortical infarction. There is no evidence of midline shift. There is no acute hemorrhage. No calvarial fractures are visualized. There are moderately extensive white matter hypodensities likely on a small vessel basis, or related to prior radiation therapy. There is an old left basal ganglia lacunar infarct. There is no evidence of pathologic ventricular dilatation. There is no evidence of acute sinusitis IMPRESSION: No acute intracranial findings ACT 112: Negative or not required by law. Electronically signed by: Eric Agarwal M.D. 07/21/2020 3:55 PM XR chest 1V portable HISTORY: SEPSIS COMPARISON: Chest 07/15/2020. FINDINGS: Right jugular Port-A-Cath terminates at the proximal SVC. No pneumothorax. No pleural effusions. Emphysema. Patchy left retrocardiac density is noted. The right lung is clear. No evidence for pulmonary edema. IMPRESSION: There is a patchy left retrocardiac density. This may represent a developing pneumonia. ACT 112: Negative or not required by law. Electronically signed by: Abiel Garza M.D. 07/21/2020 3:44 PM ECG Data Attestation: I personally reviewed and interpreted this ECG as follows: Indication: + weakness Rate (beats per minute): 101 Rhythm: + sinus tachycardia ECG Intervals/blocks: + Normal QRS and + Normal QT ECG [place]: + Normal ECG ST segments: + Normal ST segments Additional Comments: low voltage MDM Narrative This is an ill-appearing female who lives at home with family who presents with complaints of increased weakness. Patient was a poor and difficult historian and her description of events and review of systems changed multiple times yoana jameson my initial evaluation as well as on subsequent repeat evaluation. Patient remained hemodynamically stable here. She was reevaluated multiple times. Due to her concern as well as a mention of nausea and dizziness, patient was sent for head CT which was unremarkable. Chest x-ray did reveal possible evolving retrocardiac pneumonia. Coronavirus testing was sent, patient started on antibiotics as a precaution due to her underlying COPD and use of home oxygen. It does seem in discussion with the patient that she is noncompliant and tends to pick and choose when she wants to use oxygen which makes me concern for her compliance with her medication regimen also. Patient denied trauma or injury, no evidence of sepsis. No evidence of underlying cardiac etiology. Coronavirus testing ultimately negative as was influenza. Patient did have an elevated lactic acid which is new compared to 4 days ago. While she does use Metformin, this is significantly elevated and I feel should be monitored and rechecked especially in light of an evolving infection. No evidence for DKA. Mild anemia was noted and this does appear chronic for the patient. Mild hypomagnesemia was noted and was repleted while in the emergency room. Patient does have a history of chronic hyponatremia, level today improved compared to 4 days ago. Patient kept up-to-date on all results on subsequent rechecks, and was in agreement with plan. Patient did not feel safe going home despite no use of oxygen here. Case discussed with hospitalist. An order was placed for continuous cardiac monitoring. The monitor shows a rate of _92_ with _normal sinus_ rhythm. Impression & Plan Weakness, Hyponatremia, Pneumonia, Hypomagnesemia, Anemia Discharge Plan Visit Data Chief Complaint: Confusion ED Provider: Shell Valencia Discharge Problem: Weakness, Hyponatremia, Pneumonia, Hypomagnesemia, Anemia Patient Disposition: Admitted As Inpatient Discharge Instructions Interventions: ED Discharge Assessment Last Done: 07/21/20 18:48 Discharge Problem: Pneumonia Qualifiers: Pneumonia type: due to unspecified organism Laterality: left Lung location: lower lobe of lung Qualified Code(s): J18.9 - Pneumonia, unspecified organism Anemia Qualifiers: Anemia type: unspecified type Qualified Code(s): D64.9 - Anemia, unspecified
--- NOTE | 2020-07-21 15:45 | XRay Report ---
XR chest 1V portable HISTORY: SEPSIS COMPARISON: Chest 07/15/2020. FINDINGS: Right jugular Port-A-Cath terminates at the proximal SVC. No pneumothorax. No pleural effus ions. Emphysema. Patchy left retrocardiac density is noted. The right lung is clear. No evidence for pulmonary edema. IMPRESSION: There is a patchy left retrocardiac density. This may represent a developing pneumonia. ACT 112: Negative or not required by law. Electronically signed by: Abiel Garza M.D. 07/21/2020 3:44 PM
[2020-07-21 15:57] LABS: Alanine Aminotransferase 16 U/L (12-78); Albumin Level 3.3 gm/dl (3.4-5.0); Aspartate Aminotransferase 7 U/L (15-37); BUN Creatinine Ratio 14.5 (10-20); Blood Urea Nitrogen 10 mg/dl (7-18); Calcium 9.1 mg/dl (8.5-10.1); Carbon Dioxide 24 mmol/L (21-32); Chloride 100 mmol/L (98-107); Creatinine Clr Calc Pharmacy 80.4 ml/min; Est GFR (African American) 108.9; Glucose 105 mg/dl (70-99); Magnesium 1.7 mg/dl (1.8-2.4); Potassium 4.2 mmol/L (3.5-5.1); Sodium 131 mmol/L (136-145)
--- NOTE | 2020-07-21 15:57 | CT Scan Report ---
CT head/brain wo con CLINICAL HISTORY: weakness, nausea COMPARISON STUDY: 11/13/2019 TECHNIQUE: Axial CT of the brain is performed from the vertex to the skull base. IV contrast was not administered for this examination. A dose lowering technique was utilized adhering to the principles of ALARA. CT DOSE: 614.27 mGy.cm FINDINGS: No intra or extra-axial mass lesions are visualized. There is no CT evidence of acute cortical infarc tion. There is no evidence of midline shift. There is no acute hemorrhage. No calvarial fractures ar e visualized. There are moderately extensive white matter hypodensities likely on a small vessel basis, or related to prior radiation therapy. There is an old left basal ganglia lacunar infarct. There is no evidence of pathologic ventricular dilatation. There is no evidence of acute sinusitis IMPRESSION: No acute intracranial findings ACT 112: Negative or not required by law. Electronically signed by: Eric Agarwal M.D. 07/21/2020 3:55 PM
[2020-07-21 15:58] LABS: Partial Thromboplastin Ratio 1.7; Prothrombin Time 10.9 Seconds (9.0-12.0)
[2020-07-21 16:02] LABS: Alkaline Phosphatase 61 U/L (45-117); Anisocytosis Present; Bilirubin,Total 0.2 mg/dl (0.2-1); Globulin 3.4 gm/dl (2.5-4.0); Total Protein 6.7 gm/dl (6.4-8.2); Troponin I < 0.015 ng/ml (0-0.045)
[2020-07-21 16:07] LABS: Partial Thromboplastin Time 48.8 Seconds (21.0-31.0)
--- NOTE | 2020-07-21 16:28 | Electrocardiogram Report ---
Test Reason : Blood Pressure : / mmHG Vent. Rate : 101 BPM Atrial Rate : 101 BPM P-R Int : 156 ms QRS Dur : 084 ms QT Int : 356 ms P-R-T Axes : 079 082 081 degrees QTc Int : 461 ms Poor data quality, interpretation may be adversely affected Sinus tachycardia Low voltage QRS Nonspecific ST abnormality Abnormal ECG When compared with ECG of 15-JUL-2020 17:43, No significant change was found Confirmed by Get Nick ([id number]) on 07/21/2020 4:28:00 PM Referred By: REFERRED SELF Confirmed By:Andre Nick
[2020-07-21] MEDS ORDERED: MAGNESIUM SULFATE / D5W 1 GM/100 ML BAG IV STA (17:16)
[2020-07-21 17:20] LABS: Appearance Urine Clear (Clear); Bilirubin Urine Negative (Negative); Blood Urine Negative (Negative); Color Urine Yellow; Glucose Urine UA Negative (Negative); Ketones Urine Negative (Negative); Leukocyte Esterase Urine Negative (Negative); Nitrite Urine Negative (Negative); Protein Urine Negative (Negative); Specific Gravity Urine 1.005 (1.000-1.030); Urobilinogen Urine Negative (Negative)
[2020-07-21] MEDS ORDERED: levoFLOXacin/D5W 750 MG/150 ML BAG IV STA (17:20)
[2020-07-21 17:35] LABS: Influenza A virus by PCR Negative (Negative); Influenza B virus by PCR Negative (Negative)
[2020-07-21] MEDS ORDERED: GLUCAGON FOR INJ 1 MG VIAL SQ PRN (20:02)
[2020-07-21] MEDS ORDERED: CARBOHYDRATES FOR HYPOGLYCEMIA PO PRN (20:02)
[2020-07-21] MEDS ORDERED: PHARMACIST DISCHARGE MED REC CONSULT PRN (20:02)
[2020-07-21] MEDS ORDERED: GLUCOSE 40% GEL 15 GM TUBE PO PRN (20:02)
[2020-07-21] MEDS ORDERED: ALBUTEROL 0.083% NEBU SOLN 3 ML VIAL INH PRN (20:02)
[2020-07-21] MEDS ORDERED: GLUCOSE 10 TABS/TUBE PO PRN (20:02)
[2020-07-21] MEDS ORDERED: DOCUSATE SODIUM/SENNA 50/8.6MG TAB PO PRN (20:02)
[2020-07-21] MEDS ORDERED: DEXTROSE 50% 50 ML SYRINGE IV PRN (20:02)
[2020-07-21] MEDS ORDERED: OPTIRAY 320 125ml IV ONE (20:31)
--- NOTE | 2020-07-21 20:37 | History & Physical Report ---
Date of Service July 21, 2020 Assessment & Plan (1) Stroke-like symptom: -Admit to [facility] with telemetry -Patient presenting from home with reports of generalized weakness and difficulty with speech -History of prior CVA and idiopathic leukoencephalopathy -Head CT negative for acute findings -Case discussed with neurology, Dr. Hatch -Increase aspirin to 162 mg daily, continue statin -Brain MRI -Head/neck CTA -Echo -Neuro checks (2) Elevated lactic acid level: -Lactic acid 3.4 -> 2.9 -Likely due to dehydration and/or Metformin -Doubt sepsis given lack of fever and leukocytosis and normal procalcitonin -IVF, trend lactate (3) Radiation pneumonitis: -Currently on steroid taper, to complete on 07/23 -patchy left retrocardiac density seen on CXR likely secondary to radiation pneumonitis (similar in appearance from outpatient CT chest 07/09/2020) -No pulmonary symptoms reported, saturating well on room air -Normal procalcitonin -Continue steroids to complete taper (4) SIADH (syndrome of inappropriate ADH production): -Na+ 131, at baseline -Follow sodium levels (5) Small cell carcinoma of lung: -S/p chemotherapy completed 02/2020, radiation completed 01/2020, prophylactic cranial radiation completed 04/2020 (6) Chronic respiratory failure with hypoxia: (7) COPD (chronic obstructive pulmonary disease): -Patient reports wearing 2 L of oxygen continuous -Currently saturating well on room air -No signs of acute exacerbation -Continue home inhalers (8) Paroxysmal A-fib: -Rate controlled on verapamil, rhythm controlled on flecainide, anticoagulated on Eliquis (9) CAD (coronary artery disease): -Appears stable, no reports of chest pain -Continue aspirin and statin (10) HTN (hypertension): -BP controlled, continue lisinopril (11) RAKESH on CPAP: -CPAP as per home settings (12) Hypothyroidism: -Continue levothyroxine (13) Schizoaffective disorder: -Stable, continue home meds (14) DVT prophylaxis: -Anticoagulated on Eliquis Admission and Anticipated Discharge Date Admission Date: July 21, 2020 History of Present Illness Chief Complaint: Weakness, speech difficulty Primary Care Provider: Dmitry Roland DO 59-year-old female with PMH chronic hypoxic respiratory failure, COPD, SIADH, hypothyroidism, small cell lung CA s/p chemo and radiation, idiopathic leukoencephalopathy, schizoaffective disorder, CAD, paroxysmal atrial fibrillation anticoagulated on Eliquis, and other problems listed below who presents to the ED for evaluation of generalized weakness and difficulty speaking. Patient was seen in the ED on 07/15 for complaints of generalized weakness and nausea. Patient had great improvement after IVF and was discharged home. Patient reports that over the past 1 week, she has noted increasing speech difficulties and difficulty forming sentences. She reports she feels generally weak and is having trouble getting out of bed and standing up from her chair. She notes increased tremors. Today she reports a headache. Denies blurred or double vision. No unilateral weakness, numbness, tingling. Denies difficulty swallowing or understanding. No chest pain or shortness of breath. Denies lightheadedness, dizziness, diaphoresis, syncopal events. Reports a poor appetite and some nausea however denies vomiting, abdominal pain. Reports some intermittent diarrhea last week however that has since resolved. No fevers or chills. Reports chronic urinary frequency which is unchanged from baseline. In the ED, labs show elevated lactate 3.4, otherwise unremarkable. Patient has mild tachycardia, otherwise hemodynamically stable. CXR shows patchy left retrocardiac density. Head CT negative for acute findings. Patient received IVF, IV Levaquin, IV magnesium replacement. Allergies Allergy/AdvReac Type Severity Reaction Status Date / Time Beta-Blockers Allergy Severe Confusion; Verified 07/21/20 18:11 (Beta-Adrenergic Bloc Diarrhea; Rash furosemide [From Lasix] Allergy Severe "LUNGS Verified 07/21/20 18:11 CLOSE UP" tetracycline Allergy Intermediate RASH; Verified 07/21/20 18:11 "MYCINS" ALLERGY acetaminophen Allergy Mild GI UPSET Verified 07/21/20 18:11 clindamycin Allergy Unknown "MYCINS" Verified 07/21/20 18:11 ALLERGY diltiazem Allergy Unknown ? Verified 07/21/20 18:11 Sulfa (Sulfonamide Allergy Unknown Unknown Verified 07/21/20 18:11 Antibiotics) sumatriptan Allergy Unknown "TRIPTANS" Verified 07/21/20 18:11 ALLERGY morphine Allergy Unknown Verified 07/21/20 18:11 codeine AdvReac Severe SYNCOPE Verified 07/21/20 18:11 PER PATIENT oxycodone AdvReac Mild GI UPSET Verified 07/21/20 18:11 METAL JEWELRY AdvReac Mild ITCHINESS Uncoded 05/12/20 13:27 "WITH CHEAP JEWELRY" Home Medications Medication Instructions Recorded Confirmed Type apixaban 5 mg tablet 5 mg PO BID #180 tab 03/14/19 07/21/20 History flecainide 100 mg tablet 100 mg PO BID #180 tab 03/14/19 07/21/20 History levothyroxine 100 mcg tablet 100 mcg PO DAILYBB tab 03/14/19 07/21/20 History montelukast 10 mg tablet 10 mg PO HS tab 03/14/19 07/21/20 History omeprazole 20 mg capsule,delayed 20 mg PO BID cap 03/14/19 07/21/20 History release albuterol sulfate 90 mcg/actuation 2 puffs INH Q6H PRN 03/27/19 07/21/20 History aerosol inhaler bupropion HCl 200 mg tablet,12 hr 200 mg PO QAM ea 03/27/19 07/21/20 History sustained-release aspirin 81 mg PO HS 10/31/19 07/21/20 History sennosides-docusate sodium 1 tab PO QAM PRN #30 tab 11/12/19 07/21/20 Rx [Senokot-S] Oxygen Home #1 ea 11/20/19 07/21/20 History calcium carbonate 500 mg calcium 500 mg PO DAILY 11/20/19 07/21/20 History (1,250 mg) tablet liothyronine 5 mcg tablet 5 mcg PO BID tab 11/20/19 07/21/20 History magnesium oxide 400 mg PO DAILY 11/20/19 07/21/20 History metformin 1,000 mg tablet 1,000 mg PO BID 11/20/19 07/21/20 History multivitamin 1 tab PO DAILY 11/20/19 07/21/20 History ondansetron HCl 8 mg tablet 8 mg PO TID PRN tab 11/20/19 07/21/20 History prochlorperazine maleate 10 mg 10 mg PO Q6H PRN tab 11/20/19 07/21/20 History tablet verapamil 240 mg 24 hr 240 mg PO DAILY 11/20/19 07/21/20 History capsule,extended release fluticasone propionate 50 2 sprays INTNAS DAILY PRN 11/22/19 07/21/20 History mcg/actuation nasal spray,suspension thiothixene 5 mg capsule 5 mg PO DAILY cap 11/22/19 07/21/20 History tiotropium bromide 18 mcg capsule 18 mcg INHALATION DAILY puffs 01/21/20 07/21/20 History with inhalation device albuterol sulfate 2.5 mg INH Q6H PRN 04/01/20 07/21/20 History tizanidine 2 mg capsule 2 mg PO HS PRN cap 04/01/20 07/21/20 History fluticasone propion-salmeterol 1 ea INHALATION BID 07/21/20 07/21/20 History [Wixela Inhub] lisinopril 20 mg PO BID 07/21/20 07/21/20 History pravastatin 80 mg PO DAILY 07/21/20 07/21/20 History prednisone 0 mg PO .TAPER UD 07/21/20 07/21/20 History urea 1 packet PO DAILY 07/21/20 07/21/20 History Past Med/Surg History Medical History (Updated 07/21/20 @ 20:34 by PARRIS Burton) Abnormal mammography CAD (coronary artery disease) Chronic cerebral ischemia Chronic hyponatremia Chronic respiratory failure with hypoxia Common migraine without aura Contusion of left hip COPD (chronic obstructive pulmonary disease) On oxygen Depression Diaphragmatic hernia Diverticulosis of colon Dizziness DS (disseminated sclerosis) Dyslipidemia Dysmetabolic syndrome X Eczema Encounter for pre-operative examination GERD (gastroesophageal reflux disease) Hearing loss HTN (hypertension) Hypothyroidism Memory loss Migraines Neuropathy Non-occlusive coronary artery disease Old anteroseptal myocardial infarction (2004) RAKESH on CPAP Osteoporosis, unspecified Paroxysmal A-fib Presence of stent in LAD coronary artery (2004) Schizoaffective disorder SIADH (syndrome of inappropriate ADH production) Small cell carcinoma of lung Unspecified osteomyelitis, ankle and foot Surgical History History of bunionectomy History of colonoscopy History of coronary angioplasty Stent by Dr. Bryan History of tubal ligation History of wisdom tooth extraction Family History Father , 56yo Hypertension Liver cancer Migraines Mother , at 65yo Breast cancer Diabetes Hypertension Emphysema lung Brother No problems noted. Sister Diabetes Liver cancer H/O liver transplant Hypertension Son No problems noted. Son Prediabetes Social History Smoking Status: Former smoker Tobacco Type: Cigarettes Cigarettes Per Day: 2-2.5 packs per day; Second Hand Exposure: No; Do You Dip or Chew Tobacco: No; Hx Alcohol Use: No Hx Substance Use: No Preferred Language: Welsh Communication Ability: Impaired Visual Impairment: No Limitations Hearing Ability: Normal Lamp Wirer Required: No Beliefs That Will Affect Care: None marital status: Single Current Living Situation: Family Current Living Situation Comment: Son and grandchild current occupational status: unemployed current occupation: On disability Other Information That Helps Us Care for You: No Feels Safe at Home: Yes Safety Concerns: Feels Safe At This Time Diet Comment: High protein diet, fluid restriction, diabetic diet; caffeine: No during the past year weight has: decreased > 10 lbs Assistive Devices: CPAP Review of Systems Review of Systems: ROS per HPI, all other systems reviewed and negative Physical Exam Constitutional: WD/WN, vitals as above Eyes: PERRL, conjunctivae normal, anicteric sclerae ENMT: Ears: no external ear abnormality Nose: no external nose abnormality Mouth: + dry oral mucous membranes Respiratory: normal respiratory effort; no respiratory distress Auscultation: + wheezes (Very scattered, faint) Cardiovascular: Rate/Rhythm: regular rate and regular rhythm Vessels: normal peripheral pulses Extremities: no edema Gastrointestinal (Abdomen): normal bowel sounds, soft, nontender, no hepatosplenomegaly Musculoskeletal: no cyanosis or clubbing, extremities motor strength 5/5 Skin: no rashes, warm and dry Neurologic: PERRL, EOMI, accommodation nl, no face palsy, no dysarthria moves all extremities and awake; no focal motor deficits Speech / Cognition: + abnormal speech (Intermittent word finding/expressive aphasia) Motor/Sensory: + tremor Coordination: normal [id number] test Psychiatric: A+Ox3, euthymic affect Results & Data Results & Data ([facility]) Vital Signs (Past 12 Hours) Vital Signs Temp Pulse Pulse Resp BP BP Pulse Ox 07/21/20 20:03 36.3 C L 109 H 19 164/85 H 93 07/21/20 18:24 102 H 18 149/91 H 94 07/21/20 17:00 104 H 20 127/81 95 07/21/20 16:45 101 H 18 142/76 H 93 07/21/20 16:30 97 H 24 123/70 95 07/21/20 16:20 95 H 20 07/21/20 16:10 95 H 22 07/21/20 16:01 95 H 19 07/21/20 16:00 96 H 22 132/98 94 07/21/20 15:54 95 H 21 115/84 07/21/20 15:53 97 H 16 07/21/20 15:40 100 H 20 07/21/20 15:31 97 H 20 07/21/20 15:30 96 H 19 135/80 95 07/21/20 15:20 96 H 22 93 07/21/20 15:10 95 H 22 92 07/21/20 15:04 95 07/21/20 15:01 97 H 24 93 07/21/20 15:00 97 H 24 127/79 93 07/21/20 14:50 98 H 19 95 07/21/20 14:40 95 H 20 92 07/21/20 14:33 97 H 18 94 07/21/20 14:30 96 H 20 133/80 94 07/21/20 14:25 36.7 C 102 H 18 142/81 H 95 Laboratory Results Short CBC 07/21/20 07/21/20 07/21/20 Range/Units 15:24 15:24 18:08 WBC 5.64 (4.8-10.8) K/uL Hgb 11.7 L (12.0-16.0) g/dL Hct 36.1 L (37-47) % Plt Count 256 (130-400) K/uL Lactate 3.4 H* 2.9 H* (0.4-2.0) mmol/L BMP 07/21/20 15:24 Sodium 131 L Potassium 4.2 Chloride 100 Carbon Dioxide 24 BUN 10 Creatinine 0.69 Glucose 105 H Calcium 9.1 Cardiac Enzymes 07/21/20 Range/Units 15:24 Troponin I < 0.015 (0-0.045) ng/ml Liver Function 07/21/20 Range/Units 15:24 Total Bilirubin 0.2 (0.2-1) mg/dl AST 7 L (15-37) U/L ALT 16 (12-78) U/L Alkaline Phosphatase 61 (45-117) U/L Albumin 3.3 L (3.4-5.0) gm/dl Urine 07/21/20 Range/Units 17:08 Urine Color Yellow Urine Appearance Clear (Clear) Urine pH 6.0 (4.5-7.5) Ur Specific [place] 1.005 (1.000-1.030) Urine Protein Negative (Negative) Urine Glucose (UA) Negative (Negative) Diagnostic Findings HEAD CT IMPRESSION: No acute intracranial findings CXR IMPRESSION: There is a patchy left retrocardiac density. This may represent a developing pneumonia. Code Status & VTE Plan Code Status Patient is a full code as per my discussion with her. VTE Prophylaxis Plan VTE Prophylaxis will be ordered: No Supervising Physician Co-Signing Physician Notes HISTORY: Record reviewed. Patient interviewed and examined in her room. Care coordinated with PARRIS Burton. Please refer to her documentation for complete history. Briefly, 59 YO F with history of PAF on apixaban, stroke, lung Ca, radiation pneumonitis, DM, and other problems. Presented to ED complaining of weakness and difficulty speaking. No headache. No other neuro symptoms. No fever, cough, SOB. EXAM: General- no distress Lungs- clear to auscultation; no respiratory distress Cardiovascular- RRR; no murmur; no gallop; no JVD; no pretibial edema Abdomen- + bowel sounds, soft, nontender Extremities- no cyanosis; no calf tenderness Neuro- alert, oriented; PERRL, EOMI; no facial palsy; ? mild dysarthria; motor strength 5/5 bilat Skin- warm & dry DATA: Hgb 11.7 WBC 5640 Plts 256,000 Na 131 Lactate 3.4 --> 2.9 Procalcitonin < 0.05 Other lab studies as noted. Chest x-ray demonstrated left retrocardiac density, ? pneumonia. CT head negative. EKG performed at [address] at 101 / minute, no acute changes. ASSESSMENT AND PLAN: STROKE-LIKE SYMPTOMS History of PAF, anticoagulated on apixaban. Head CT negative. Check MRI. Consult Neuro. LACTIC ACIDOSIS Does not appear to be septic. Afebrile. No leukocytosis. Procalcitonin normal. No cough. LLL pulmonary density noted on previous imaging and probably due to radiation pneumonitis. Hold metformin. Follow. ABNORMAL CHEST X-RAY Doubt pneumonia as discussed above. PAF Currently in SR. Continue verapamil and apixaban. HYPONATREMIA Chronic. Probable SIADH. Follow. Consider fluid restriction. Please refer to TOM Navas's documentation for discussion of other issues.
[2020-07-21] MEDS ORDERED: ASPIRIN 81 MG ECTAB PO SCH (21:00)
[2020-07-21] MEDS ORDERED: MONTELUKAST SODIUM 10 MG TABLET PO SCH (21:00)
[2020-07-21] MEDS: SODIUM CHLORIDE 0.9% 1000ML 1,000 ML IV SCH (21:01)
[2020-07-21] MEDS: lisinopril 20 MG TAB PO SCH (21:36)
[2020-07-21] MEDS: ASPIRIN 81 MG ECTAB PO SCH (21:36)
[2020-07-21] MEDS: APIXABAN 5 MG TABLET PO SCH (21:37)
[2020-07-21] MEDS: LIOTHYRONINE SODIUM 5 MCG TAB PO SCH (21:37)
[2020-07-21] MEDS: PANTOprazole 40 MG TAB PO SCH (21:38)
[2020-07-21] MEDS: FLECAINIDE ACETATE 100 MG TABLET PO SCH (21:38)
[2020-07-21] MEDS: INSULIN ASPART 100 UNITS/ML 3 ML PEN SC SCH (21:39)
--- NOTE | 2020-07-21 21:55 | CT Scan Report ---
HEAD & NECK CTA HISTORY: expressive aphasia TECHNIQUE: Multiaxial CT images of the head were performed following the intravenous administration o f contrast to evaluate the major cerebral vessels. Multiaxial CT images of the neck were also perform ed following the intravenous administration of contrast to evaluate the major cervical vessels. Maxim um intensity projection images were also obtained. A dose lowering technique was utilized adhering to the principles of ALARA. COMPARISON: Head CT 07/21/2020. FINDINGS: There is no mass, hematoma, midline shift, or acute infarct. Mild calcified plaque within the bilater al carotid siphons with mild focal narrowing at the bilateral supraclinoid ICAs. The distal vertebral arteries, and basilar artery are widely patent. There is no significant stenosis, occlusion, or aneu rysm seen within the bilateral ACAs, MCAs, or change management manager. The aortic arch and proximal great vessels are widely patent. There is no significant stenosis, occ lusion, or dissection identified within the bilateral common carotid, internal carotid, or vertebral arteries. There is a right jugular Port-A-Cath identified. Mild calcified plaque within the bilateral carotid indications. IMPRESSION: 1. Mild narrowing of the bilateral supraclinoid ICAs. Otherwise, no significant stenosis, occlusion, or aneurysm within the [place]. 2. No significant stenosis, occlusion, or dissection identified within the cervical carotid or verteb ral arteries. ACT 112: Negative or not required by law. Electronically signed by: Abiel Garza M.D. 07/21/2020 9:53 PM
--- NOTE | 2020-07-21 21:55 | CT Scan Report ---
HEAD & NECK CTA HISTORY: expressive aphasia TECHNIQUE: Multiaxial CT images of the head were performed following the intravenous administration o f contrast to evaluate the major cerebral vessels. Multiaxial CT images of the neck were also perform ed following the intravenous administration of contrast to evaluate the major cervical vessels. Maxim um intensity projection images were also obtained. A dose lowering technique was utilized adhering to the principles of ALARA. COMPARISON: Head CT 07/21/2020. FINDINGS: There is no mass, hematoma, midline shift, or acute infarct. Mild calcified plaque within the bilater al carotid siphons with mild focal narrowing at the bilateral supraclinoid ICAs. The distal vertebral arteries, and basilar artery are widely patent. There is no significant stenosis, occlusion, or aneu rysm seen within the bilateral ACAs, MCAs, or bridge crane operator. The aortic arch and proximal great vessels are widely patent. There is no significant stenosis, occ lusion, or dissection identified within the bilateral common carotid, internal carotid, or vertebral arteries. There is a right jugular Port-A-Cath identified. Mild calcified plaque within the bilateral carotid indications. IMPRESSION: 1. Mild narrowing of the bilateral supraclinoid ICAs. Otherwise, no significant stenosis, occlusion, or aneurysm within the [place]. 2. No significant stenosis, occlusion, or dissection identified within the cervical carotid or verteb ral arteries. ACT 112: Negative or not required by law. Electronically signed by: Abiel Garza M.D. 07/21/2020 9:53 PM
[2020-07-21] MEDS ORDERED: HEPARIN 100 UNIT/ML 5ML FLUSH FLUSH PRN (22:11)
[2020-07-21] MEDS ORDERED: GADOBUTROL 65ML VIAL IV ONE (22:34)
[2020-07-22] MEDS: LIOTHYRONINE SODIUM 5 MCG TAB PO SCH ×2 (06:08→17:16)
[2020-07-22] MEDS ORDERED: LEVOTHYROXINE SODIUM 100 MCG TABLET PO SCH (06:30)
[2020-07-22 06:37] LABS: Hematocrit (blood only) 33.3 % (37-47); Hemoglobin 10.6 g/dL (12.0-16.0); Mean Corpuscular Hemoglobin 25.7 pg (25-34); Mean Corpuscular Hgb Conc 31.8 g/dL (32-36); Mean Corpuscular Volume 80.6 fL (80-100); Mean Platelet Volume 9.7 fL (7.4-10.4); Platelet Count 217 K/uL (130-400); RDW Coefficient of Variation 20.9 % (11.5-14.5); RDW Standard Deviation 62.1 fL (36.4-46.3); Red Blood Count 4.13 M/uL (4.2-5.4); White Blood Count 4.89 K/uL (4.8-10.8)
[2020-07-22 07:06] LABS: BUN Creatinine Ratio 10.3 (10-20); Calcium 8.5 mg/dl (8.5-10.1); Creatinine Clr Calc Pharmacy 76.3 ml/min; Est GFR (African American) 106.5; Est GFR (Non-African American) 91.9
[2020-07-22 07:07] LABS: Estimated Average Glucose 126 mg/dl
--- NOTE | 2020-07-22 07:51 | Magnetic Resonance Report ---
MRI OF THE BRAIN WITHOUT AND WITH IV CONTRAST CLINICAL HISTORY: expressive aphasia LUNG CARCINOMA. COMPARISON STUDY: MRI dated 10/25/2019, head CT dated 07/21/2020 TECHNIQUE: MRI of the brain was performed from the vertex to the skull base utilizing various T1 and T2 weighted sequences. Following the IV administration of 7.6 mL of Gadavist contrast, additional enh anced images were obtained. FINDINGS: Sagittal T1, axial diffusion, proton density and T2 weighted axial, coronal FLAIR, and pre and post a xial T1-weighted images were acquired. These were supplemented with post gadolinium coronal T1 weight ed images. No intra or extra-axial mass lesions are visualized. Axial diffusion-weighted images reveal no evidence of acute or subacute infarction. There is no evidence of ventricular dilatation. Proton density T2-weighted and FLAIR images reveal extensive confluent foci of increased T2 and FLAIR signal within the white matter. The findings may be secondary to post radiation change. There is an old left basal ganglia infarct. There are no abnormal flow voids. There is no evidence of pathologic enhancement. IMPRESSION: 1. No acute intracranial findings 2. No evidence of acute or subacute infarction 3. No evidence of metastatic disease 4. Old left basal ganglia infarct 5. Extensive white matter disease, possibly secondary to prior brain irradiation. ACT 112: Negative or not required by law. Electronically signed by: Eric Agarwal M.D. 07/22/2020 7:50 AM
[2020-07-22] MEDS: INSULIN ASPART 100 UNITS/ML 3 ML PEN SC SCH ×3 (07:59→17:41)
[2020-07-22] MEDS: SODIUM CHLORIDE 0.9% 1000ML 1,000 ML IV SCH (08:00)
[2020-07-22] MEDS: FLECAINIDE ACETATE 100 MG TABLET PO SCH (08:01)
[2020-07-22] MEDS: lisinopril 20 MG TAB PO SCH (08:02)
[2020-07-22] MEDS: APIXABAN 5 MG TABLET PO SCH (08:02)
[2020-07-22] MEDS: MAGNESIUM OXIDE 400 MG TAB PO SCH ×2 (08:02→08:13)
[2020-07-22] MEDS: PANTOprazole 40 MG TAB PO SCH (08:02)
[2020-07-22] MEDS: CALCIUM CARBONATE 1250MG TAB PO SCH ×2 (08:03→08:13)
[2020-07-22] MEDS: ASPIRIN 81 MG ECTAB PO SCH (08:03)
[2020-07-22] MEDS ORDERED: Nursing to Pharmacy Communication SCH (08:15)
[2020-07-22] MEDS ORDERED: UREA (URE-NA) 15 GM PACK PO SCH (09:00)
[2020-07-22] MEDS ORDERED: MULTIVITAMIN TAB PO SCH (09:00)
[2020-07-22] MEDS ORDERED: UMECLIDINIUM BROMIDE 62.5MCG/BLISTER 7 PUFFS/INHALER INH SCH (09:00)
[2020-07-22] MEDS ORDERED: buPROPion SR 100 MG TABCR PO SCH (09:00)
[2020-07-22] MEDS ORDERED: FLUTICASONE/VILANTEROL 100/25MCG 14 PUFFS/INHALER INH SCH (09:00)
[2020-07-22] MEDS ORDERED: PRAVASTATIN SOD 40 MG TAB PO SCH (09:00)
[2020-07-22] MEDS ORDERED: THIOTHIXENE 5 MG CAP PO SCH ×2 (09:00→21:00)
[2020-07-22] MEDS ORDERED: VERAPAMIL HCL 240 MG TABCR PO SCH (09:00)
[2020-07-22] MEDS ORDERED: predniSONE 5 MG TAB PO SCH (09:00)
[2020-07-22 11:12] VITALS: O2SAT 95
[2020-07-22 15:13] VITALS: BP 117/76; PULSE 88; TEMP 97.9
--- NOTE | 2020-07-22 15:39 | Neurology Consultation ---
Date of Consultation July 22, 2020 Assessment & Plan (1) Stroke-like symptom: 1. MRI with no new stroke 2. progressive white matter changes and CADASIL (not confirmed by genetic testing) can cause stroke like symptoms and she has also had whole brain radiation that can cause cognitive issues 3. optimize HTN, HLD, DM LDL <70 4. continue Eliquis 5 mg twice daily 5. increase aspirin from 81 mg to 162 mg daily 6. TTE no ASD 7. will see back in our office in 3-4 weeks for further evaluation 8. follow as schedule with hemotology and PCP Present on Admission?: Yes (2) SIADH (syndrome of inappropriate ADH production): Present on Admission?: Yes (3) Paroxysmal A-fib: Present on Admission?: Yes Supervising Physician Co-Signing Physician Notes I have seen and discussed above patient with Dr Norris Hatch, neurology I have interviewed and examined this unfortunate woman with Pearl Black PA-C. 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 or syndrome closely related to this and now is in atrial fibrillation is on Eliquis, aspirin, as small cell carcinoma lung status post whole brain radiation August 2019 now has several weeks of intermittent confusion with negative evidence on MRI for new ischemic events, with no evidence for potential NBTE on echocardiography and with no significant intracranial or extracranial stenoses on CT angiography studies of the head and neck She is better with hydration today examination shows evidence for what appears to be a polyneuropathy, mild gait apraxia, and some minimal dysarthria of speech My suspicions are that this is 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 I doubt that these are partial seizures but on an outpatient basis we may elect to get an EEG possibly a 72 hour study if the episodes recur and we will see her back in the office for assessment in several weeks time We will try to schedule this actually as a video visit to minimize her transportation needs Unfortunately I do not see any other treatable conditions here and I am not willing to start her on anticonvulsants based on the relatively flimsy history for seizures I obtained today but would reconsider should the EEG show unequ ivocal focal spikes Dr. Collins is going to discharge her to home today and we will arrange the follow-up Norris Hatch MD History of Present Illness Reason for Consultation: aphasia and generalized weakness Requesting Physician: Cony Soto Attending Physician: Cony Soto MD History of Present Illness Rebecca is a 59 year old female with PMH- chronic hypoxic respiratory failure, COPD, SIADH, hypothyroidism, small cell lung CA s/p chemo (last 6 weeks ago) and radiation (last in August), idiopathic leukoencephalopathy, schizoaffective disorder, CAD, paroxysmal afib on Eliquis. She was evalated in the ED for generalized weakness and difficulty speaking. She was also assessed in the ED on 07/15 for complaints of generalized weakness and nausea. IVF were given and she was discharged home. For the past 2 weeks, she has noted increasing speech difficulties and difficulty forming sentences. She also feels generally weak and is having trouble getting out of bed and standing up from her chair. Her tremors are also increased. and was having a headache. She does have a poor appetite and some nausea without vomiting or abdominal pain. Her lactate acid wa s 3.4. Today she states she is feeling better after the IV fluids were given. She still feels she needs a walker to support her walking. denies CP, SOB, abdominal pain, headache, vision changes new bowel or bladder issues. Allergies Allergy/AdvReac Type Severity Reaction Status Date / Time Beta-Blockers Allergy Severe Confusion; Verified 07/21/20 18:11 (Beta-Adrenergic Bloc Diarrhea; Rash furosemide [From Lasix] Allergy Severe "LUNGS Verified 07/21/20 18:11 CLOSE UP" tetracycline Allergy Intermediate RASH; Verified 07/21/20 18:11 "MYCINS" ALLERGY acetaminophen Allergy Mild GI UPSET Verified 07/21/20 18:11 clindamycin Allergy Unknown "MYCINS" Verified 07/21/20 18:11 ALLERGY diltiazem Allergy Unknown ? Verified 07/21/20 18:11 Sulfa (Sulfonamide Allergy Unknown Unknown Verified 07/21/20 18:11 Antibiotics) sumatriptan Allergy Unknown "TRIPTANS" Verified 07/21/20 18:11 ALLERGY morphine Allergy Unknown Verified 07/21/20 18:11 codeine AdvReac Severe SYNCOPE Verified 07/21/20 18:11 PER PATIENT oxycodone AdvReac Mild GI UPSET Verified 07/21/20 18:11 METAL JEWELRY AdvReac Mild ITCHINESS Uncoded 05/12/20 13:27 "WITH CHEAP JEWELRY" Home Medications Medication Instructions Recorded Confirmed Type apixaban 5 mg tablet 5 mg PO BID #180 tab 03/14/19 07/21/20 History flecainide 100 mg tablet 100 mg PO BID #180 tab 03/14/19 07/21/20 History levothyroxine 100 mcg tablet 100 mcg PO DAILYBB tab 03/14/19 07/21/20 History montelukast 10 mg tablet 10 mg PO HS tab 03/14/19 07/21/20 History omeprazole 20 mg capsule,delayed 20 mg PO BID cap 03/14/19 07/21/20 History release albuterol sulfate 90 mcg/actuation 2 puffs INH Q6H PRN 03/27/19 07/21/20 History aerosol inhaler bupropion HCl 200 mg tablet,12 hr 200 mg PO QAM ea 03/27/19 07/21/20 History sustained-release sennosides-docusate sodium 1 tab PO QAM PRN #30 tab 11/12/19 07/21/20 Rx [Senokot-S] Oxygen Home #1 ea 11/20/19 07/21/20 History calcium carbonate 500 mg calcium 500 mg PO DAILY 11/20/19 07/21/20 History (1,250 mg) tablet liothyronine 5 mcg tablet 5 mcg PO BID tab 11/20/19 07/21/20 History magnesium oxide 400 mg PO DAILY 11/20/19 07/21/20 History metformin 1,000 mg tablet 1,000 mg PO BID 11/20/19 07/21/20 History multivitamin 1 tab PO DAILY 11/20/19 07/21/20 History ondansetron HCl 8 mg tablet 8 mg PO TID PRN tab 11/20/19 07/21/20 History prochlorperazine maleate 10 mg 10 mg PO Q6H PRN tab 11/20/19 07/21/20 History tablet verapamil 240 mg 24 hr 240 mg PO DAILY 11/20/19 07/21/20 History capsule,extended release fluticasone propionate 50 2 sprays INTNAS DAILY PRN 11/22/19 07/21/20 History mcg/actuation nasal spray,suspension thiothixene 5 mg capsule 5 mg PO DAILY cap 11/22/19 07/21/20 History tiotropium bromide 18 mcg capsule 18 mcg INHALATION DAILY puffs 01/21/20 07/21/20 History with inhalation device albuterol sulfate 2.5 mg INH Q6H PRN 04/01/20 07/21/20 History tizanidine 2 mg capsule 2 mg PO HS PRN cap 04/01/20 07/21/20 History fluticasone propion-salmeterol 1 ea INHALATION BID 07/21/20 07/21/20 History [Wixela Inhub] lisinopril 20 mg PO BID 07/21/20 07/21/20 History pravastatin 80 mg PO DAILY 07/21/20 07/21/20 History prednisone 0 mg PO .TAPER UD 07/21/20 07/21/20 History urea 1 packet PO DAILY 07/21/20 07/21/20 History aspirin 162 mg PO HS #30 tab 07/22/20 07/21/20 Rx Patient History Medical History (Updated 07/21/20 @ 20:34 by PARRIS Burton) Abnormal mammography CAD (coronary artery disease) Chronic cerebral ischemia Chronic hyponatremia Chronic respiratory failure with hypoxia Common migraine without aura Contusion of left hip COPD (chronic obstructive pulmonary disease) On oxygen Depression Diaphragmatic hernia Diverticulosis of colon Dizziness DS (disseminated sclerosis) Dyslipidemia Dysmetabolic syndrome X Eczema Encounter for pre-operative examination GERD (gastroesophageal reflux disease) Hearing loss HTN (hypertension) Hypothyroidism Memory loss Migraines Neuropathy Non-occlusive coronary artery disease Old anteroseptal myocardial infarction (2004) RAKESH on CPAP Osteoporosis, unspecified Paroxysmal A-fib Presence of stent in LAD coronary artery (2004) Schizoaffective disorder SIADH (syndrome of inappropriate ADH production) Small cell carcinoma of lung Unspecified osteomyelitis, ankle and foot Surgical History History of bunionectomy History of colonoscopy History of coronary angioplasty Stent by Dr. Bryan History of tubal ligation History of wisdom tooth extraction Family History Father , 56yo Hypertension Liver cancer Migraines Mother , at 65yo Breast cancer Diabetes Hypertension Emphysema lung Brother No problems noted. Sister Diabetes Liver cancer H/O liver transplant Hypertension Son No problems noted. 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 Required: No Beliefs That Will Affect Care: None marital status: Current Living Situation: Family Current Living Situation Comment: Son and grandchild current occupational status: unemployed current occupation: On disability How many Children do You have: 2 Other Information That Helps Us Care for You: No Feels Safe at Home: Yes Safety Concerns: Feels Safe At This Time Diet Comment: High protein diet, fluid restriction, diabetic diet; caffeine: No during the past year weight has: decreased > 10 lbs Assistive Devices: CPAP Review of Systems Review of Systems: All systems reviewed & are unremarkable except as noted in HPI & below and All systems reviewed & are unremarkable except as noted in Subjective Physical Exam Physical Exam: Physical Exam: Constitutional: appearance over nourished, ill appearing Ears, Nose, Mouth and Throat: mucous membranes moist, no injection and skin normal, eyes normal Cardiovascular: irregular Respiratory: course breath sounds Musculoskeletal: no peripheral edema Skin: no stigmata of neurocutaneous disease noted and normal and intact Eyes: extraocular muscles intact (EOMI) and pupils equal, round and reactive to light (PERRL) NEUROLOGIC EXAMINATION: Mental status: Alert and interactive Oriented to person Speech no evidence of aphasia but slowed speech Cranial Nerves no facial asymmetry Reflexes: Deep tendon reflexes were symmetrical UE 2/5, LE decreased down going toes Sensory: intact to light touch Coordination: finger to nose slow but no bipass Gait/Stance: Posture normal. Gait normal: steady with walker or assistance tandem gait. stands up from bed without assistance Motor: Negative for pronator drift of out stretched arms with eyes closed. Strength: hand skull splitter biceps triceps bilaterally 5/5, hip flex plantar flex ext 4+/5 Results & Data ([facility]) Vital Signs (Past 12 Hours) Vital Signs Temp Pulse Pulse Resp BP Pulse Ox 07/22/20 15:12 36.6 C 88 20 117/76 95 07/22/20 15:00 79 07/22/20 13:45 95 07/22/20 11:11 36.7 C 92 H 20 130/83 95 12/01/20 07:28 36.6 C 84 20 136/87 96 07/22/20 07:24 66 07/22/20 04:25 36.5 C 92 H 18 118/75 94 Laboratory Results Abnormal lab results 07/21/20 07/21/20 07/21/20 Range/Units 15:24 15:24 15:24 RBC (4.2-5.4) M/uL Hgb (12.0-16.0) g/dL Hct (37-47) % MCHC (32-36) g/dL RDW Std Deviation (36.4-46.3) fL RDW Coeff of Chepe (11.5-14.5) % APTT 48.8 H* (21.0-31.0) Seconds Sodium 131 L (136-145) mmol/L Glucose 105 H (70-99) mg/dl POC Glucose (70-99) mg/dl Hemoglobin A1c (4.5-5.6) % Lactate 3.4 H* (0.4-2.0) mmol/L Magnesium 1.7 L (1.8-2.4) mg/dl AST 7 L (15-37) U/L Albumin 3.3 L (3.4-5.0) gm/dl 07/21/20 07/22/20 07/22/20 Range/Units 18:08 06:14 06:14 RBC 4.13 L (4.2-5.4) M/uL Hgb 10.6 L (12.0-16.0) g/dL Hct 33.3 L (37-47) % MCHC 31.8 L (32-36) g/dL RDW Std Deviation 62.1 H (36.4-46.3) fL RDW Coeff of Chepe 20.9 H (11.5-14.5) % APTT (21.0-31.0) Seconds Sodium 133 L (136-145) mmol/L Glucose (70-99) mg/dl POC Glucose (70-99) mg/dl Hemoglobin A1c (4.5-5.6) % Lactate 2.9 H* (0.4-2.0) mmol/L Magnesium (1.8-2.4) mg/dl AST (15-37) U/L Albumin (3.4-5.0) gm/dl 07/22/20 07/22/20 07/22/20 Range/Units 06:14 07:19 11:20 RBC (4.2-5.4) M/uL Hgb (12.0-16.0) g/dL Hct (37-47) % MCHC (32-36) g/dL RDW Std Deviation (36.4-46.3) fL RDW Coeff of Chepe (11.5-14.5) % APTT (21.0-31.0) Seconds Sodium (136-145) mmol/L Glucose (70-99) mg/dl POC Glucose 126 H 110 H (70-99) mg/dl Hemoglobin A1c 6.0 H (4.5-5.6) % Lactate (0.4-2.0) mmol/L Magnesium (1.8-2.4) mg/dl AST (15-37) U/L Albumin (3.4-5.0) gm/dl Diagnostic Findings MRI brain with and without-. No acute intracranial findings No evidence of acute or subacute infarction No evidence of metastatic disease Old left basal ganglia infarct Extensive white matter disease, possibly secondary to prior brain irradiation. CTA head/neck-Mild narrowing of the bilateral supraclinoid ICAs. Otherwise, no significant stenosis, occlusion, or aneurysm within the [place]. No significant stenosis, occlusion, or dissection identified within the cervical carotid or vertebral arteries. TTE- 55-60% no ASD
[2020-07-22] MEDS ORDERED: STROKE PATIENT DISCHARGE STA (15:58)
--- NOTE | 2020-07-22 17:29 | Discharge Summary ---
Date of Service July 22, 2020 Admission HPI Per Admitting Provider 59-year-old female with PMH chronic hypoxic respiratory failure, COPD, SIADH, hypothyroidism, small cell lung CA s/p chemo and radiation, idiopathic leukoencephalopathy, schizoaffective disorder, CAD, paroxysmal atrial fibrillation anticoagulated on Eliquis, and other problems listed below who presents to the ED for evaluation of generalized weakness and difficulty speaking. Patient was seen in the ED on 07/15 for complaints of generalized weakness and nausea. Patient had great improvement after IVF and was discharged home. Patient reports that over the past 1 week, she has noted increasing speech difficulties and difficulty forming sentences. She reports she feels generally weak and is having trouble getting out of bed and standing up from her chair. She notes increased tremors. Today she reports a headache. Denies blurred or double vision. No unilateral weakness, numbness, tingling. Denies difficulty swallowing or understanding. No chest pain or shortness of breath. Denies lightheadedness, dizziness, diaphoresis, syncopal events. Reports a poor appetite and some nausea however denies vomiting, abdominal pain. Reports some intermittent diarrhea last week however that has since resolved. No fevers or chills. Reports chronic urinary frequency which is unchanged from baseline. In the ED, labs show elevated lactate 3.4, otherwise unremarkable. Patient has mild tachycardia, otherwise hemodynamically stable. CXR shows patchy left retrocardiac density. Head CT negative for acute findings. Patient received IVF, IV Levaquin, IV magnesium replacement. Principal Diagnosis Stroke like symptoms/TIA Discharge Exam Constitutional WD/WN, vitals as above Eyes PERRL, conjunctivae normal, anicteric sclerae ENMT external ear and nose normal, oropharynx normal Neck trachea midline, no thyromegaly Respiratory normal respiratory effort and + cough Auscultation: + diminished lung sounds Cardiovascular RRR, no murmur, no edema Gastrointestinal (Abdomen) normal bowel sounds, soft, nontender, no hepatosplenomegaly Musculoskeletal no cyanosis or clubbing, extremities motor strength 5/5 Skin no rashes, warm and dry Neurologic PERRL, EOMI, accommodation nl, no face palsy, no dysarthria Psychiatric A+Ox3, euthymic affect Discharge Data Allergies Allergy/AdvReac Type Severity Reaction Status Date / Time Beta-Blockers Allergy Severe Confusion; Verified 07/21/20 18:11 (Beta-Adrenergic Bloc Diarrhea; Rash furosemide [From Lasix] Allergy Severe "LUNGS Verified 07/21/20 18:11 CLOSE UP" tetracycline Allergy Intermediate RASH; Verified 07/21/20 18:11 "MYCINS" ALLERGY acetaminophen Allergy Mild GI UPSET Verified 07/21/20 18:11 clindamycin Allergy Unknown "MYCINS" Verified 07/21/20 18:11 ALLERGY diltiazem Allergy Unknown ? Verified 07/21/20 18:11 Sulfa (Sulfonamide Allergy Unknown Unknown Verified 07/21/20 18:11 Antibiotics) sumatriptan Allergy Unknown "TRIPTANS" Verified 07/21/20 18:11 ALLERGY morphine Allergy Unknown Verified 07/21/20 18:11 codeine AdvReac Severe SYNCOPE Verified 07/21/20 18:11 PER PATIENT oxycodone AdvReac Mild GI UPSET Verified 07/21/20 18:11 METAL JEWELRY AdvReac Mild ITCHINESS Uncoded 05/12/20 13:27 "WITH CHEAP JEWELRY" Consultations 07/21/20 18:47 ED Decision to Admit Stat 07/21/20 20:02 Consult Case Management - Discharge Planning Routine Consult Case Management - Discharge Planning Routine Consult Neurology Routine Ordered Studies 07/21/20 14:54 CT head/brain wo con Stat 07/21/20 20:02 CT angio head w con Routine CT angio neck with con Routine MR brain wo/w con Routine Hospital Course (1) Stroke-like symptom: -Patient presented from home with reports of generalized weakness and difficulty with speech -symptoms has resolved , speech fluent , no weakness or paresthesia -History of prior CVA and idiopathic leukoencephalopathy -Head CT negative for acute findings/MRI of brain shows no new stroke -appreciate input neurology, Dr. Hatch -Increase aspirin to 162 mg daily, continue statin -stable to be discharged home today -Neurology follow up in 2-3 weeks (2) Elevated lactic acid level: -resolved /lactic acid level normalized after Iv hydration -Likely due to dehydration and/or Metformin -no evidence of infection , no abx indicated (3) Radiation pneumonitis: -Currently on steroid taper, to complete on 07/23 -patchy left retrocardiac density seen on CXR likely secondary to radiation pneumonitis (similar in appearance from outpatient CT chest 07/09/2020) -No pulmonary symptoms reported, saturating well on room air -Normal procalcitonin -Continue steroids to complete taper (4) SIADH (syndrome of inappropriate ADH production): -Na+ 131, at baseline - (5) Small cell carcinoma of lung: -S/p chemotherapy completed 02/2020, radiation completed 01/2020, prophylactic cranial radiation completed 04/2020 (6) Chronic respiratory failure with hypoxia: (7) COPD (chronic obstructive pulmonary disease): -Patient reports wearing 2 L of oxygen continuous -Currently saturating well on room air -No signs of acute exacerbation -Continue home inhalers (8) Paroxysmal A-fib: -Rate controlled on verapamil, rhythm controlled on flecainide, anticoagulated on Eliquis (9) CAD (coronary artery disease): -Appears stable, no reports of chest pain -Continue aspirin dose adjusted as above and statin (10) HTN (hypertension): -BP controlled, continue lisinopril (11) RAKESH on CPAP: -CPAP as per home settings (12) Hypothyroidism: -Continue levothyroxine (13) Schizoaffective disorder: -Stable, continue home meds (14) DVT prophylaxis: -Anticoagulated on Eliquis DISPOSITION discharged home today Total Time Total Time Spent Total Time Spent (In Minutes): 30 mins Total Time Includes: Examination of the Patient, Discharge Planning and Medication Reconciliation Discharge Plan Discharge Items Patient Disposition: Home - Self-Care Reason For Visit: WEAKNESS,ELEVATED LACTIC ACID Discharge Diagnosis: STROKE LIKE SYMPTOMS/TIA Activity: Resume your previous activity Non-emergency contact: Primary Care Provider Call non-emergency contact if: you have any medication questions Follow-up/Referrals: Norris Hatch MD [Physician] - (NEUROLOGY FOLLOW UP IN 2-3 WEEKS ) Dmitry Roland DO [Primary Care Provider] - (HOSPITAL FOLLOW UP IN A WEEK ) Diet: Heart Healthy Addtl Attending Provider Instructions: ASPIRIN DOSE INCREASED TO 162 MG ( 2X 81 MG TABLET ) DAILY -TAKE WITH FOOD NEUROLOGY FOLLOW UP IN 2-3 WEEKS Pending Studies at Discharge: No Stand-Alone Forms: My [employer], Smoking Cessation Medications and DC Order Prescriptions: Continued calcium carbonate [Calcium 500] 500 mg calcium (1,250 mg) tablet 500 mg PO DAILY RF: 0 magnesium oxide 400 mg magnesium capsule 400 mg PO DAILY RF: 0 metformin 1,000 mg tablet 1,000 mg PO BID RF: 0 verapamil 240 mg capsule,ext rel. pellets 24 hr 240 mg PO DAILY RF: 0 (DME) Oxygen Home Liters Per Minute See Rx Instructions .ROUTE .MEDSUPPLY Qty: 1 RF: 0 liothyronine [Cytomel] 5 mcg tablet 5 mcg PO BID RF: 0 multivitamin Tablet 1 tab PO DAILY RF: 0 fluticasone propionate [Flonase Allergy Relief] 50 mcg/actuation spray,suspension 2 sprays INTNAS DAILY PRN (Reason: allergy symptoms) RF: 0 albuterol sulfate 2.5 mg /3 mL (0.083 %) solution for nebulization 2.5 mg INH Q6H PRN (Reason: shortness of breath or wheezing) RF: 0 tizanidine 2 mg capsule 2 mg PO HS PRN (Reason: muscle spasticity) RF: 0 apixaban 5 mg tablet 5 mg PO BID Qty: 180 RF: 0 flecainide 100 mg tablet 100 mg PO BID Qty: 180 RF: 0 levothyroxine 100 mcg tablet 100 mcg PO DAILYBB RF: 0 omeprazole 20 mg capsule,delayed release(DR/EC) 20 mg PO BID RF: 0 montelukast 10 mg tablet 10 mg PO HS RF: 0 albuterol sulfate [Ventolin HFA] 90 mcg/actuation HFA aerosol inhaler 2 puffs INH Q6H PRN (Reason: Shortness Of Breath Or Wheezing) RF: 0 bupropion HCl 200 mg tablet sustained-release 12 hr 200 mg PO QAM RF: 0 thiothixene 5 mg capsule 5 mg PO DAILY RF: 0 Spiriva with HandiHaler 18 mcg capsule, w/inhalation device 18 mcg INHALATION DAILY RF: 0 sennosides-docusate sodium [Senokot-S] 8.6-50 mg Tablet 1 tab PO QAM PRN (Reason: constipation) Qty: 30 RF: 0 ondansetron HCl 8 mg tablet 8 mg PO TID PRN (Reason: nausea/vomiting) RF: 0 prochlorperazine maleate [Compazine] 10 mg tablet 10 mg PO Q6H PRN (Reason: Nausea) RF: 0 prednisone 10 mg tablet 0 mg PO .TAPER UD RF: 0 pravastatin 80 mg tablet 80 mg PO DAILY RF: 0 fluticasone propion-salmeterol [Wixela Inhub] 500-50 mcg/dose blister with device 1 ea INHALATION BID RF: 0 urea 15 gram Powder In Packet 1 packet PO DAILY RF: 0 lisinopril 20 mg tablet 20 mg PO BID RF: 0 Changed aspirin 81 mg Tablet,Delayed Release (Dr/Ec) 162 mg PO HS Qty: 30 RF: 3 Discharge Orders: Discharge Order (Routine); Ordered 07/22/20 Ordered By: Cony Santiago/Other Patient Handouts: Prediabetes, 5 Steps for Eating Healthier, A1C Admission Data Admit Date/Time: 07/21/20 18:21 Attending Provider: Cony Soto Admit Provider: Norris Kenyon Primary Care Provider: Dmitry Roland Other Providers: Norris Kenyon ; Norris Hatch Other Interventions: Discharge Summary Assessment (RN) Last Done: 07/22/20 16:15
== END 2020-07-22 18:32 | disposition home or self-care (01) ==
LOC: ED 14:19 → 2W 14:19 → SUATTDRO 18:21 → 2W 18:48

== ENCOUNTER 2020-10-01 14:06 | Inpatient (IN) ==
[2020-10-01] MEDS ORDERED: SODIUM CHLORIDE 0.9% 500 ML IV SCH ×2 (14:30→17:48)
--- NOTE | 2020-10-01 14:32 | Emergency Department Note ---
Impression & Plan Weakness, Dizziness, Acute hyponatremia, Falling ED Provider Note NAME: ROBERT TERRAZAS AGE: 60 SEX: F : 1960 ARRIVES VIA: Walk-In INFORMANT: [Patient] ED PROVIDER(S): [Tan Ibarra MD] CHIEF COMPLAINT: Weakness, dizziness HISTORY OF PRESENT ILLNESS: The patient is a 60-year-old female with small cell lung cancer. He also has COPD and wears 3 L of oxygen at all times. Patient in the last month has had increasing dizziness and weakness. She was in our ED just under a month ago for a fall. Imaging was unrevealing. The patient states that she has stumbled a few times since the visit in the ED but has not had any serious fall since then. She complains of some occasional headaches but they are minimal. She has no chest pain, no shortness of breath. There has been no vomiting or diarrhea. She has not had fever. There have been no Covid exposures. She has no urinary complaints. Patient had outpatient laboratory work done showing a sodium of 120, she has a history of hyponatremia. She states that she was sent here for hospitalization. REVIEW OF SYSTEMS: See HPI for pertinent positives and negatives. A total of ten systems were reviewed and were otherwise negative. PMHx/PSHx: See Below SOCIAL HISTORY: See Below. PHYSICAL EXAM: GENERAL: Patient is in no acute distress. HEENT: No acute trauma, normocephalic atraumatic, mucous membranes moist, no nasal congestion, no scleral icterus. NECK: No stridor, no adenopathy, no meningismus, trachea is midline. LUNGS: Clear to auscultation bilaterally, no wheeze, no rhonchi, breath sounds equal. HEART: Without murmurs gallops or rubs, regular rate and rhythm. ABDOMEN: Soft, nontender, bowel sounds positive, no hernias, no peritonitis. EXTREMITIES: No cyanosis or edema, full range of motion of all the joints without pain or difficulty, no signs for acute trauma. NEUROLOGIC: Oriented x 3, no acute motor or sensory deficits, no focal weakness. No speech slur, no one-sided weakness. SKIN: No rash, no jaundice, no diaphoresis. DIFFERENTIAL DIAGNOSIS: Infection, dehydration, metabolic abnormality, hypo/hyperglycemia, electrolyte disturbance, anemia, hypoxia, cardiac sources, intracerebral event, toxicologic issues, stroke, TIA, as well as other pathologies. EMERGENCY DEPARTMENT COURSE/PROCEDURES: ECG: Refused by the patient. MEDICAL DECISION MAKING: There is a slightly low white count at 3.87. There is a mild anemia at 11.5. Platelet count was normal. Renal panel testing showed a low sodium at 122, no kidney failure. Magnesium is low at 1.7. No worrisome liver enzyme elevation. TSH was elevated however, the T4 was normal. ECG was refused by the patient. Cardiac enzyme testing x1 does not show evidence for acute cardiac injury. Chest x-ray showed some chronic findings, there was no acute infiltrate, no pneumothorax or CHF. On exam, there were no focal neurologic findings. The patient presents with falling, dizziness and weakness. She was found to have a low sodium as an outpatient, this was confirmed by our repeat testing. The patient received 750 cc of IV saline, she was given IV magnesium. Given the low sodium value, given her dizziness, weakness and falling, hospitalization is warranted. I spoke to the patient, I talked to case management. The on-call hospitalist was consulted. Past Med/Surg History Medical History Abnormal mammography CAD (coronary artery disease) Chronic cerebral ischemia Chronic hyponatremia Chronic respiratory failure with hypoxia Common migraine without aura Contusion of left hip COPD (chronic obstructive pulmonary disease) On oxygen Depression Diaphragmatic hernia Diverticulosis of colon Dizziness DS (disseminated sclerosis) Dyslipidemia Dysmetabolic syndrome X Eczema Encounter for pre-operative examination GERD (gastroesophageal reflux disease) Hearing loss HTN (hypertension) Hypothyroidism Memory loss Migraines Neuropathy Non-occlusive coronary artery disease Old anteroseptal myocardial infarction (2004) RAKESH on CPAP Osteoporosis, unspecified Paroxysmal A-fib Presence of stent in LAD coronary artery (2004) Schizoaffective disorder SIADH (syndrome of inappropriate ADH production) Small cell carcinoma of lung Unspecified osteomyelitis, ankle and foot Surgical History History of bunionectomy History of colonoscopy History of coronary angioplasty Stent by Dr. Bryan History of tubal ligation History of wisdom tooth extraction Family History Father , 56yo Hypertension Liver cancer Migraines Mother , at 65yo Breast cancer Diabetes Hypertension Emphysema lung Brother No problems noted. Sister Diabetes Liver cancer H/O liver transplant Hypertension Son No problems noted. Son Prediabetes Social History Smoking Status: Never smoker Tobacco Type: Cigarettes Cigarettes Per Day: 2-2.5 packs per day; Second Hand Exposure: No; Hx Alcohol Use: No Hx Substance Use: No Preferred Language: Kinyarwanda Communication Ability: Effective Visual Impairment: No Limitations Hearing Ability: Normal [place] Administrator Required: No Beliefs That Will Affect Care: None marital status: Current Living Situation: Family Current Living Situation Comment: Son and grandchild current occupational status: unemployed current occupation: On disability How many Children do You have: 2 Feels Safe at Home: Yes Diet Comment: High protein diet, fluid restriction, diabetic diet; caffeine: No during the past year weight has: decreased > 10 lbs Assistive Devices: CPAP Allergies Allergies Allergy/AdvReac Type Severity Reaction Status Date / Time Beta-Blockers Allergy Severe Confusion; Verified 09/03/20 00:11 (Beta-Adrenergic Bloc Diarrhea; Rash furosemide [From Lasix] Allergy Severe "LUNGS Verified 09/03/20 00:11 CLOSE UP" tetracycline Allergy Intermediate RASH; Verified 09/03/20 00:11 "MYCINS" ALLERGY acetaminophen Allergy Mild GI UPSET Verified 09/03/20 00:11 clindamycin Allergy Unknown "MYCINS" Verified 09/03/20 00:11 ALLERGY diltiazem Allergy Unknown ? Verified 09/03/20 00:11 Sulfa (Sulfonamide Allergy Unknown Unknown Verified 09/03/20 00:11 Antibiotics) sumatriptan Allergy Unknown "TRIPTANS" Verified 09/03/20 00:11 ALLERGY morphine Allergy Unknown Verified 09/03/20 00:11 codeine AdvReac Severe SYNCOPE Verified 09/03/20 00:11 PER PATIENT oxycodone AdvReac Mild GI UPSET Verified 09/03/20 00:11 METAL JEWELRY AdvReac Mild ITCHINESS Uncoded 09/03/20 00:11 "WITH CHEAP JEWELRY" Home Meds Home Medications Medication Instructions Recorded Confirmed apixaban 5 mg tablet 5 mg PO BID #180 tab 03/14/19 09/03/20 flecainide 100 mg tablet 100 mg PO BID #180 tab 03/14/19 09/03/20 levothyroxine 100 mcg tablet 100 mcg PO DAILYBB tab 03/14/19 09/03/20 montelukast 10 mg tablet 10 mg PO HS tab 03/14/19 09/03/20 omeprazole 20 mg capsule,delayed 20 mg PO BID cap 03/14/19 09/03/20 release albuterol sulfate 90 mcg/actuation 2 puffs INH Q6H PRN 03/27/19 09/03/20 aerosol inhaler bupropion HCl 200 mg tablet,12 hr 200 mg PO QAM ea 03/27/19 09/03/20 sustained-release Oxygen Home #1 ea 11/20/19 07/21/20 calcium carbonate 500 mg calcium 500 mg PO DAILY 11/20/19 09/03/20 (1,250 mg) tablet liothyronine 5 mcg tablet 5 mcg PO BID tab 11/20/19 09/03/20 magnesium oxide 400 mg PO DAILY 11/20/19 09/03/20 metformin 1,000 mg tablet 1,000 mg PO BID 11/20/19 09/03/20 multivitamin 1 tab PO DAILY 11/20/19 09/03/20 ondansetron HCl 8 mg tablet 8 mg PO TID PRN tab 11/20/19 09/03/20 prochlorperazine maleate 10 mg 10 mg PO Q6H PRN tab 11/20/19 09/03/20 tablet verapamil 240 mg 24 hr 240 mg PO DAILY 11/20/19 09/03/20 capsule,extended release fluticasone propionate 50 2 sprays INTNAS DAILY PRN 11/22/19 09/03/20 mcg/actuation nasal spray,suspension thiothixene 5 mg capsule 5 mg PO DAILY cap 11/22/19 09/03/20 tiotropium bromide 18 mcg capsule 18 mcg INHALATION DAILY puffs 01/21/20 09/03/20 with inhalation device albuterol sulfate 2.5 mg INH Q6H PRN 04/01/20 09/03/20 tizanidine 2 mg capsule 2 mg PO HS PRN cap 04/01/20 09/03/20 fluticasone propion-salmeterol 1 ea INHALATION BID 07/21/20 09/03/20 [Wixela Inhub] lisinopril 20 mg PO BID 07/21/20 09/03/20 pravastatin 80 mg PO DAILY 07/21/20 09/03/20 prednisone 0 mg PO .TAPER UD 07/21/20 09/03/20 urea 1 packet PO DAILY 07/21/20 09/03/20 Previous Rx's Medication Instructions Recorded sennosides-docusate sodium 1 tab PO QAM PRN #30 tab 11/12/19 [Senokot-S] aspirin 162 mg PO HS #30 tab 07/22/20 Results & Data (ED) Vital Signs Vital Signs - 24 hr 10/01/20 14:07 Temperature 36.9 C Temperature Source Temporal Artery Scan Pulse Rate 88 Respiratory Rate 16 Blood Pressure 152/88 H Blood Pressure Mean 109 Pulse Oximetry 100 Oxygen Delivery Method Nasal Cannula Oxygen Flow Rate 2 Sepsis Recent Fever Within 48 Hours No Sepsis New/Unexplained Change in Mental Status No Sepsis Action Taken by Nursing No Action Required Home Medications Current Medication List: was personally reviewed by me Laboratory Data Attestation: I reviewed the patient's lab results. Result diagrams: 10/01/20 15:00 10/01/20 15:00 Lab Results 10/01/20 10/01/20 10/01/20 Range/Units 15:00 15:00 15:00 WBC 3.87 L (4.8-10.8) K/uL RBC 4.56 (4.2-5.4) M/uL Hgb 11.5 L (12.0-16.0) g/dL Hct 34.2 L (37-47) % MCV 75.0 L (80-100) fL MCH 25.2 (25-34) pg MCHC 33.6 (32-36) g/dL RDW Std Deviation 42.4 (36.4-46.3) fL RDW Coeff of Chepe 15.5 H (11.5-14.5) % Plt Count 254 (130-400) K/uL MPV 8.8 (7.4-10.4) fL Immature Gran % (Auto) 0.3 % Neut % (Auto) 71.3 % Lymph % (Auto) 16.5 % [place] % (Auto) 11.9 % Eos % (Auto) 0.0 % Baso % (Auto) 0.0 % Neut # (Auto) 2.76 (1.4-6.5) K/uL Lymph # (Auto) 0.64 L (1.2-3.4) K/uL [place] # (Auto) 0.46 (0.11-0.59) K/uL Eos # (Auto) 0.00 (0-0.5) K/uL Baso # (Auto) 0.00 (0-0.2) K/uL Immature Gran # (Auto) 0.01 (0.00-0.02) K/uL Sodium 122 L (136-145) mmol/L Potassium 4.2 (3.5-5.1) mmol/L Chloride 91 L (98-107) mmol/L Carbon Dioxide 23 (21-32) mmol/L Anion Gap 8.0 (3-11) BUN 6 L (7-18) mg/dl Creatinine 0.60 (0.6-1.2) mg/dl Est Cr Clr Drug Dosing Not Reportable Est GFR ( Amer) 113.2 Est GFR (Non-Af Amer) 97.7 BUN/Creatinine Ratio 10.5 (10-20) Glucose 80 (70-99) mg/dl Osmolality 248 L (280-300) mOsm/kg Calcium 9.0 (8.5-10.1) mg/dl Phosphorus 3.8 (2.5-4.9) mg/dl Magnesium 1.7 L (1.8-2.4) mg/dl Total Bilirubin 0.3 (0.2-1) mg/dl AST 11 L (15-37) U/L ALT 18 (12-78) U/L Alkaline Phosphatase 72 (45-117) U/L Troponin I < 0.015 (0-0.045) ng/ml Total Protein 7.1 (6.4-8.2) gm/dl Albumin 3.8 (3.4-5.0) gm/dl Globulin 3.3 (2.5-4.0) gm/dl Albumin/Globulin Ratio 1.2 (0.9-2) TSH 13.000 H (0.300-4.500) uIu/ml Free T4 1.05 (0.8-1.6) ng/dl Administered Medications Magnesium Sulfate/Dextrose (Magnesium Sulfate / D5w) 1 gm in 100 mls @ 100 mls/hr IV NOW STA Stop: 10/01/20 16:38 Last Admin: 10/01/20 15:45 Dose: 100 mls/hr Documented by: [id number] Discontinued Medications Sodium Chloride (Nss) 500 mls @ 999 mls/hr IV .Q31M LEROY Stop: 10/01/20 15:00 Last Infusion: 10/01/20 15:35 Dose: 0 mls/hr Documented by: [id number] Admin: 10/01/20 15:00 Dose: 999 mls/hr Documented by: [id number] Sodium Chloride (Nss) 250 mls @ 999 mls/hr IV .Q16M ONE Stop: 10/01/20 15:54 Last Infusion: 10/01/20 16:08 Dose: 0 mls/hr Documented by: [id number] Admin: 10/01/20 15:45 Dose: 999 mls/hr Documented by: [id number] Imaging Data Radiologist's Impression: SINGLE VIEW CHEST CLINICAL HISTORY: Generalized weakness. FINDINGS: An AP, portable, semierect chest radiograph is compared to study dated 07/21/2020 and correlated with chest CT dated 05/01/2020. The examination is degraded by portable technique, apical lordotic positioning, and patient rotation. A right internal jugular central venous infusion port is unchanged in position. The cardiomediastinal silhouette is unremarkable noting atherosclerotic calcification of the thoracic aorta. Emphysema and chronic interstitial thickening is similar to previous. There are foci of bibasilar scarring/atelectasis. Fibrotic change is seen at the left lung base. No airspace consolidation or large pleural effusion is identified. No pneumothorax is seen. The skeletal structures are osteopenic. The bony thorax is grossly intact. IMPRESSION: 1. Advanced emphysematous change with no acute cardiopulmonary abnormality. 2. Fibrotic change is again noted at the left lung base. Discharge Plan Visit Data Chief Complaint: Abnormal Labs/Diagnostic Testing Stated Complaint: SODIUM IS LOW ED Provider: Tan Ibarra Discharge Problem: Weakness, Dizziness, Acute hyponatremia, Falling Patient Disposition: Admitted As Inpatient Condition: Fair Forms Stand Alone Forms: My [facility] Guide Prescriptions Prescriptions: No Action calcium carbonate [Calcium 500] 500 mg calcium (1,250 mg) tablet 500 mg PO DAILY RF: 0 magnesium oxide 400 mg magnesium capsule 400 mg PO DAILY RF: 0 metformin 1,000 mg tablet 1,000 mg PO BID RF: 0 verapamil 240 mg capsule,ext rel. pellets 24 hr 240 mg PO DAILY RF: 0 (DME) Oxygen Home Liters Per Minute See Rx Instructions .ROUTE .MEDSUPPLY Qty: 1 RF: 0 liothyronine [Cytomel] 5 mcg tablet 5 mcg PO BID RF: 0 multivitamin Tablet 1 tab PO DAILY RF: 0 fluticasone propionate [Flonase Allergy Relief] 50 mcg/actuation spray,suspension 2 sprays INTNAS DAILY PRN (Reason: allergy symptoms) RF: 0 albuterol sulfate 2.5 mg /3 mL (0.083 %) solution for nebulization 2.5 mg INH Q6H PRN (Reason: shortness of breath or wheezing) RF: 0 tizanidine 2 mg capsule 2 mg PO HS PRN (Reason: muscle spasticity) RF: 0 apixaban 5 mg tablet 5 mg PO BID Qty: 180 RF: 0 flecainide 100 mg tablet 100 mg PO BID Qty: 180 RF: 0 levothyroxine 100 mcg tablet 100 mcg PO DAILYBB RF: 0 omeprazole 20 mg capsule,delayed release(DR/EC) 20 mg PO BID RF: 0 montelukast 10 mg tablet 10 mg PO HS RF: 0 albuterol sulfate [Ventolin HFA] 90 mcg/actuation HFA aerosol inhaler 2 puffs INH Q6H PRN (Reason: Shortness Of Breath Or Wheezing) RF: 0 bupropion HCl 200 mg tablet sustained-release 12 hr 200 mg PO QAM RF: 0 thiothixene 5 mg capsule 5 mg PO DAILY RF: 0 Spiriva with HandiHaler 18 mcg capsule, w/inhalation device 18 mcg INHALATION DAILY RF: 0 sennosides-docusate sodium [Senokot-S] 8.6-50 mg Tablet 1 tab PO QAM PRN (Reason: constipation) Qty: 30 RF: 0 ondansetron HCl 8 mg tablet 8 mg PO TID PRN (Reason: nausea/vomiting) RF: 0 prochlorperazine maleate [Compazine] 10 mg tablet 10 mg PO Q6H PRN (Reason: Nausea) RF: 0 prednisone 10 mg tablet 0 mg PO .TAPER UD RF: 0 pravastatin 80 mg tablet 80 mg PO DAILY RF: 0 fluticasone propion-salmeterol [Wixela Inhub] 500-50 mcg/dose blister with device 1 ea INHALATION BID RF: 0 urea 15 gram Powder In Packet 1 packet PO DAILY RF: 0 lisinopril 20 mg tablet 20 mg PO BID RF: 0 aspirin 81 mg Tablet,Delayed Release (Dr/Ec) 162 mg PO HS Qty: 30 RF: 3 Referrals Referrals: Dmitry Roland DO [Primary Care Provider] -
[2020-10-01 15:11] LABS: Hematocrit (blood only) 34.2 % (37-47); Hemoglobin 11.5 g/dL (12.0-16.0); Immature Granulocytes # (auto) 0.01 K/uL (0.00-0.02); Immature Granulocytes % (auto) 0.3 %; Lymphocytes # (auto) 0.64 K/uL (1.2-3.4); Lymphocytes % (auto) 16.5 %; Mean Corpuscular Hemoglobin 25.2 pg (25-34); Mean Corpuscular Hgb Conc 33.6 g/dL (32-36); Mean Platelet Volume 8.8 fL (7.4-10.4); Monocytes # (auto) 0.46 K/uL (0.11-0.59); Monocytes % (auto) 11.9 %; Neutrophils # (auto) 2.76 K/uL (1.4-6.5); Neutrophils % (auto) 71.3 %; Platelet Count 254 K/uL (130-400); RDW Coefficient of Variation 15.5 % (11.5-14.5); RDW Standard Deviation 42.4 fL (36.4-46.3); Red Blood Count 4.56 M/uL (4.2-5.4); White Blood Count 3.87 K/uL (4.8-10.8)
[2020-10-01 15:36] LABS: Alanine Aminotransferase 18 U/L (12-78); Albumin Level 3.8 gm/dl (3.4-5.0); Aspartate Aminotransferase 11 U/L (15-37); BUN Creatinine Ratio 10.5 (10-20); Blood Urea Nitrogen 6 mg/dl (7-18); Carbon Dioxide 23 mmol/L (21-32); Chloride 91 mmol/L (98-107); Est GFR (African American) 113.2; Est GFR (Non-African American) 97.7; Glucose 80 mg/dl (70-99); Magnesium 1.7 mg/dl (1.8-2.4); Potassium 4.2 mmol/L (3.5-5.1); Sodium 122 mmol/L (136-145)
[2020-10-01] MEDS ORDERED: MAGNESIUM SULFATE / D5W 1 GM/100 ML BAG IV STA (15:39)
[2020-10-01] MEDS ORDERED: SODIUM CHLORIDE 0.9% 250 ML IV ONE (15:39)
[2020-10-01 15:47] LABS: Albumin Globulin Ratio 1.2 (0.9-2); Alkaline Phosphatase 72 U/L (45-117); Bilirubin,Total 0.3 mg/dl (0.2-1); Globulin 3.3 gm/dl (2.5-4.0); Total Protein 7.1 gm/dl (6.4-8.2); Troponin I < 0.015 ng/ml (0-0.045)
--- NOTE | 2020-10-01 15:52 | XRay Report ---
SINGLE VIEW CHEST CLINICAL HISTORY: Generalized weakness. FINDINGS: An AP, portable, semierect chest radiograph is compared to study dated 07/21/2020 and corre lated with chest CT dated 05/01/2020. The examination is degraded by portable technique, apical lordot ic positioning, and patient rotation. A right internal jugular central venous infusion port is unchan ged in position. The cardiomediastinal silhouette is unremarkable noting atherosclerotic calcificatio n of the thoracic aorta. Emphysema and chronic interstitial thickening is similar to previous. There are foci of bibasilar scarring/atelectasis. Fibrotic change is seen at the left lung base. No airspac e consolidation or large pleural effusion is identified. No pneumothorax is seen. The skeletal struct ures are osteopenic. The bony thorax is grossly intact. IMPRESSION: 1. Advanced emphysematous change with no acute cardiopulmonary abnormality. 2. Fibrotic change is again noted at the left lung base. ACT 112: Negative or not required by law. Electronically signed by: Tan Ruiz M.D. 10/01/2020 3:51 PM
[2020-10-01 15:59] LABS: T4 Free Thyroxine 1.05 ng/dl (0.8-1.6)
[2020-10-01 16:21] LABS: Phosphorus 3.8 mg/dl (2.5-4.9)
--- NOTE | 2020-10-01 16:48 | History & Physical Report ---
Date of Service October 01, 2020 Assessment & Plan (1) Weakness: (2) SIADH (syndrome of inappropriate ADH production): (3) Hyponatremia: This is a 60 year-old female who has significant past medical history of Small cell lung ca s/p 4 cycles of carboplatin and etoposide with radiation completed 02/21/2020 as well as prophylactic cranial radiation, SIADH, PAF anticoagulated on Eliquis and rhythm controlled on flecainide, chronic respiratory failure secondary to emphysema on chronic 2 L of O2, RAKESH on CPAP, history of CVA without residual deficit, CAD, hypothyroidism, prediabetes, depression, schizoaffective disorder, PTSD who presents to ED 2/2 hyponatremia and referred by oncology. OP NA 120, ED 122 Pt with Chronic hyponatremia, Known hx of SIADH and has been compliant with FR 1.2-1.5L but states has not been even drinking that much appears dry on exam, although renal function okay Has been compliant with UREA last Na 07/22 - 133 received 700ml of IVF in ED so far admit to PCU repeat bmp NA 122 --> 123, give 500ml IV @ 80cc/hr consult nephro obtain urine na, urine osm continue UREA daily bmp q4hr pt/ot (4) Hypomagnesemia: repleted with 1g mag sulfate repeat mag in a.m. (5) Chronic respiratory failure with hypoxia: 2/2 to COPD continue 2-3L of O2, home inhalers no acute exacerbation (6) Small cell carcinoma of lung: Small cell lung ca s/p 4 cycles of carboplatin and etoposide with radiation completed 02/21/2020 as well as prophylactic cranial radiation, Follows Dr. Gaurav burroughs in place (7) Paroxysmal A-fib: rate and rhythm controlled on flecainide anticoagulated with Eliquis HTN bp elevated in ED continue lisinopril and verapmil PRE DIABETES on metformin, last a1c 5.8 09/30 will monitor accuchecks for now but no coverage HX of RADIATION PNEUMONITIS follows [facility] pulm s/p prednisone therapy, completed Hx of CVA continue asa, statin, eliquis no current deficits RAKESH bipap 02/20 @ HS HYPOTHYROIDISM elevated TSH, but t4 ok continue levothyroxine, cytomel, thiothixene DISPO: PCU PCP: Asuncion FULL CODE Pt was seen and examined in collaboration with Dr. Borges, please see addendum History of Present Illness Chief Complaint: Referred by oncology 09/23 to hyponatremia Primary Care Provider: Dmitry Roland DO This is a 60 year-old female who has significant past medical history of Small cell lung ca s/p 4 cycles of carboplatin and etoposide with radiation completed 02/21/2020 as well as prophylactic cranial radiation, SIADH, PAF anticoagulated on Eliquis and rhythm controlled on flecainide, chronic respiratory failure secondary to emphysema on chronic 2 L of O2, RAKESH on CPAP, history of CVA without residual deficit, CAD, hypothyroidism, prediabetes, depression, schizoaffective disorder, PTSD who presents to ED 2/2 hyponatremia and referred by oncology. Of significance patient last hospitalization was 07/21 to 07/22/2020 secondary to strokelike symptoms. MRI was negative for new insult. She was discharged home with increased ASA dose to 160 mg daily. She was also seen and evaluated in ED on 09/03/2020 secondary to fall and was diagnosed with new T-spine compression fracture. This has since improved. She presents today after abnormal lab work done by hematology. Her sodium is outpatient was found to be 120. She was seen and evaluated by hematology yesterday and noted to have increased weakness, dizziness and mental fogginess. She also complains of being fatigued. She has had a 10 pound weight loss in the past 2 months, unintentional. Overall decent appetite but poor fluid intake. She has been following 1.2 to 1.5 L fluid restriction, but most days drinks less than that. She does live at home with her son. No new falls since August. Since being in ED she overall feels improved and feels mentally, "clear." She she also denies any dizziness or lightheadedness. She states this has improved since receiving some IV fluid. She otherwise denies recent illness, fever, chills, sweats, syncope, chest pain, shortness of breath, palpitations, nausea, vomiting, abdominal pain, dysuria, increased urgency or frequency with urination, melena or hematochezia. She does have a chronic dry cough secondary to lung cancer. In ED sodium mildly improved to 122. So far she has received 700 mL of IV fluid. Allergies Allergy/AdvReac Type Severity Reaction Status Date / Time Beta-Blockers Allergy Severe Confusion; Verified 09/03/20 00:11 (Beta-Adrenergic Bloc Diarrhea; Rash furosemide [From Lasix] Allergy Severe "LUNGS Verified 09/03/20 00:11 CLOSE UP" tetracycline Allergy Intermediate RASH; Verified 09/03/20 00:11 "MYCINS" ALLERGY acetaminophen Allergy Mild GI UPSET Verified 09/03/20 00:11 clindamycin Allergy Unknown "MYCINS" Verified 09/03/20 00:11 ALLERGY diltiazem Allergy Unknown ? Verified 09/03/20 00:11 Sulfa (Sulfonamide Allergy Unknown Unknown Verified 09/03/20 00:11 Antibiotics) sumatriptan Allergy Unknown "TRIPTANS" Verified 09/03/20 00:11 ALLERGY morphine Allergy Unknown Verified 09/03/20 00:11 codeine AdvReac Severe SYNCOPE Verified 09/03/20 00:11 PER PATIENT oxycodone AdvReac Mild GI UPSET Verified 09/03/20 00:11 METAL JEWELRY AdvReac Mild ITCHINESS Uncoded 09/03/20 00:11 "WITH CHEAP JEWELRY" Home Medications Medication Instructions Recorded Confirmed Type apixaban 5 mg tablet 5 mg PO BID #180 tab 03/14/19 10/01/20 History flecainide 100 mg tablet 100 mg PO BID #180 tab 03/14/19 10/01/20 History levothyroxine 100 mcg tablet 100 mcg PO DAILYBB tab 03/14/19 10/01/20 History montelukast 10 mg tablet 10 mg PO HS tab 03/14/19 10/01/20 History omeprazole 20 mg capsule,delayed 20 mg PO BID cap 03/14/19 10/01/20 History release albuterol sulfate 90 mcg/actuation 2 puffs INH Q6H PRN 03/27/19 10/01/20 History aerosol inhaler bupropion HCl 200 mg tablet,12 hr 200 mg PO QAM ea 03/27/19 10/01/20 History sustained-release sennosides-docusate sodium 1 tab PO QAM PRN #30 tab 11/12/19 10/01/20 Rx [Senokot-S] Oxygen Home #1 ea 11/20/19 10/01/20 History calcium carbonate 500 mg calcium 500 mg PO DAILY 11/20/19 10/01/20 History (1,250 mg) tablet liothyronine 5 mcg tablet 5 mcg PO BID tab 11/20/19 10/01/20 History magnesium oxide 400 mg PO DAILY 11/20/19 10/01/20 History metformin 1,000 mg tablet 1,000 mg PO BID 11/20/19 10/01/20 History multivitamin 1 tab PO DAILY 11/20/19 10/01/20 History ondansetron HCl 8 mg tablet 8 mg PO TID PRN tab 11/20/19 10/01/20 History prochlorperazine maleate 10 mg 10 mg PO Q6H PRN tab 11/20/19 10/01/20 History tablet verapamil 240 mg 24 hr 240 mg PO DAILY 11/20/19 10/01/20 History capsule,extended release fluticasone propionate 50 2 sprays INTNAS DAILY PRN 11/22/19 10/01/20 History mcg/actuation nasal spray,suspension thiothixene 5 mg capsule 5 mg PO DAILY cap 11/22/19 10/01/20 History tiotropium bromide 18 mcg capsule 18 mcg INHALATION DAILY puffs 01/21/20 10/01/20 History with inhalation device albuterol sulfate 2.5 mg INH Q6H PRN 04/01/20 10/01/20 History lisinopril 20 mg PO BID 07/21/20 10/01/20 History pravastatin 80 mg PO DAILY 07/21/20 10/01/20 History urea 1 packet PO DAILY 07/21/20 10/01/20 History aspirin 162 mg PO HS #30 tab 07/22/20 10/01/20 Rx fluticasone propion-salmeterol 1 inh INHALATION Q12H 10/01/20 10/01/20 History [Shanae Inhsrinivasan] Past Med/Surg History Medical History Abnormal mammography CAD (coronary artery disease) Chronic cerebral ischemia Chronic hyponatremia Chronic respiratory failure with hypoxia Common migraine without aura Contusion of left hip COPD (chronic obstructive pulmonary disease) On oxygen Depression Diaphragmatic hernia Diverticulosis of colon Dizziness DS (disseminated sclerosis) Dyslipidemia Dysmetabolic syndrome X Eczema Encounter for pre-operative examination GERD (gastroesophageal reflux disease) Hearing loss HTN (hypertension) Hypothyroidism Memory loss Migraines Neuropathy Non-occlusive coronary artery disease Old anteroseptal myocardial infarction (2004) RAKESH on CPAP Osteoporosis, unspecified Paroxysmal A-fib Presence of stent in LAD coronary artery (2004) Schizoaffective disorder SIADH (syndrome of inappropriate ADH production) Small cell carcinoma of lung Unspecified osteomyelitis, ankle and foot Surgical History History of bunionectomy History of colonoscopy History of coronary angioplasty Stent by Dr. Bryan History of tubal ligation History of wisdom tooth extraction Family History Father , 56yo Hypertension Liver cancer Migraines Mother , at 65yo Breast cancer Diabetes Hypertension Emphysema lung Brother No problems noted. Sister Diabetes Liver cancer H/O liver transplant Hypertension Son No problems noted. Son Prediabetes Social History Smoking Status: Never smoker Tobacco Type: Cigarettes Cigarettes Per Day: 2-2.5 packs per day; Second Hand Exposure: No; Hx Alcohol Use: No Hx Substance Use: No Preferred Language: Citizen Of [place] Communication Ability: Effective Visual Impairment: No Limitations Hearing Ability: Normal Moulder Operator Required: No Beliefs That Will Affect Care: None marital status: Current Living Situation: Family Current Living Situation Comment: Lives with son current occupational status: unemployed current occupation: On disability How many Children do You have: 2 Other Information That Helps Us Care for You: No Feels Safe at Home: Yes Safety Concerns: Feels Safe At This Time Diet Comment: High protein diet, fluid restriction, diabetic diet; caffeine: No during the past year weight has: decreased > 10 lbs Assistive Devices: Oxygen - Continuous Review of Systems Review of Systems: All systems reviewed & are unremarkable except as noted in HPI & below Physical Exam Physical Exam: Constitutional: Petite, chronically ill-appearing, female, vitals as above, NAD, sitting up in bed, pleasant, conversing easily Head: Normocephalic, Atraumatic Eyes: PERRL, conjunctivae normal, anicteric sclerae ENMT: external ear and nose normal, oropharynx normal Neck: trachea midline, no thyromegaly normal visual inspection Respiratory: normal respiratory effort, lungs clear to auscultation, no wheeze, rales, rhonchi. Normal insp/exp effort, no accessory muscle use Cardiovascular: RRR, no murmur, no edema Vessels: no JVD or carotid bruit Chest: RACW port in place Abdomen: normal bowel sounds, soft, nontender, no hepatosplenomegaly Musculoskeletal: no cyanosis or clubbing, extremities motor strength 5/5 Skin: no rashes, warm and dry moderate turgor Neurologic: PERRL, EOMI, accommodation nl, no face palsy, no dysarthria CN's II-XI intact bilaterally and moves all extremities Psychiatric: A+Ox3, euthymic affect Lymphatic: no cervical or axillary lymphadenopathy : deferred Results & Data Results & Data ([facility]) Vital Signs (Past 12 Hours) Vital Signs Temp Pulse Resp BP Pulse Ox 10/01/20 14:07 36.9 C 88 16 152/88 H 100 Diagnostic Findings CXR: IMPRESSION: 1. Advanced emphysematous change with no acute cardiopulmonary abnormality. 2. Fibrotic change is again noted at the left lung base. Medications Administered Discontinued Medications Sodium Chloride (Nss) 500 mls @ 999 mls/hr IV .Q31M LEROY Stop: 10/01/20 15:00 Last Infusion: 10/01/20 15:35 Dose: 0 mls/hr Documented by: [id number] Admin: 10/01/20 15:00 Dose: 999 mls/hr Documented by: [id number] Magnesium Sulfate/Dextrose (Magnesium Sulfate / D5w) 1 gm in 100 mls @ 100 mls/hr IV NOW STA Stop: 10/01/20 16:38 Last Infusion: 10/01/20 16:46 Dose: 0 mls/hr Documented by: [id number] Admin: 10/01/20 15:45 Dose: 100 mls/hr Documented by: [id number] Sodium Chloride (Nss) 250 mls @ 999 mls/hr IV .Q16M ONE Stop: 10/01/20 15:54 Last Infusion: 10/01/20 16:08 Dose: 0 mls/hr Documented by: [id number] Admin: 10/01/20 15:45 Dose: 999 mls/hr Documented by: [id number] COVID-19 Results Results COVID-19 Adm Lab Results: RBC 4.50 M/uL (4.2-5.4) 10/03/20 WBC 2.99 K/uL (4.8-10.8) L 10/03/20 Hgb 11.2 g/dL (12.0-16.0) L 10/03/20 Hct 33.9 % (37-47) L 10/03/20 Plt Count 260 K/uL (130-400) 10/03/20 Neutrophils (%) (Auto) 71.3 % 10/01/20 Lymphocytes (%) (Auto) 16.5 % 10/01/20 Monocytes # (Auto) 0.46 K/uL (0.11-0.59) 10/01/20 Eosinophils # (Auto) 0.00 K/uL (0-0.5) 10/01/20 Immature Granulocyte % (Auto) 0.3 % 10/01/20 Neutrophils # (Auto) 2.76 K/uL (1.4-6.5) 10/01/20 Lymphocytes # (Auto) 0.64 K/uL (1.2-3.4) L 10/01/20 Monocytes # (Auto) 0.46 K/uL (0.11-0.59) 10/01/20 Eosinophils # (Auto) 0.00 K/uL (0-0.5) 10/01/20 Basophils # (Auto) 0.00 K/uL (0-0.2) 10/01/20 Immature Granulocyte # (Auto) 0.01 K/uL (0.00-0.02) 10/01/20 Na 130 mmol/L (136-145) L 10/04/20 K 4.0 mmol/L (3.5-5.1) 10/04/20 Cl 96 mmol/L (98-107) L 10/04/20 CO2 27 mmol/L (21-32) 10/04/20 Anion Gap 7.0 (3-11) 10/04/20 BUN 15 mg/dl (7-18) 10/04/20 Creatinine 0.57 mg/dl (0.6-1.2) L 10/04/20 BUN/Creatinine Ratio 27.0 (10-20) H 10/04/20 Glucose Level 95 mg/dl (70-99) 10/04/20 Ca 9.1 mg/dl (8.5-10.1) 10/04/20 Phosphorus Level 3.8 mg/dl (2.5-4.9) 10/01/20 Total Bilirubin 0.3 mg/dl (0.2-1) 10/02/20 AST/SGOT 9 U/L (15-37) L 10/02/20 ALT/SGPT 17 U/L (12-78) 10/02/20 Alkaline Phosphatase 68 U/L (45-117) 10/02/20 Total Protein 6.1 gm/dl (6.4-8.2) L 10/02/20 Albumin 3.3 gm/dl (3.4-5.0) L 10/02/20 Globulin 2.8 gm/dl (2.5-4.0) 10/02/20 Albumin/Globulin Ratio 1.2 (0.9-2) 10/02/20 Troponin I < 0.015 ng/ml (0-0.045) 10/01/20 SARS-CoV-2, RNA, NAAT NEGATIVE (NEGATIVE) 10/01/20 Chest X-Ray 10/01/20 Code Status & VTE Plan Code Status Full Code VTE Prophylaxis Plan VTE Prophylaxis will be ordered: Yes Supervising Physician Co-Signing Physician Notes Pt seen and examined by me, care coordinated with Zully Thompson PA-C, pls refer to her note above for further detail. Pt is a 60 y/o F with hx of Small cell lung ca s/p 4 cycles of carboplatin and etoposide with radiation completed 02/21/2020 as well as prophylactic cranial radiation, SIADH, PAF anticoagulated on Eliquis and rhythm controlled on flecainide, chronic respiratory failure secondary to emphysema on chronic 2 L of O2, RAKESH on CPAP, history of CVA without residual deficit, CAD, hypothyroidism, prediabetes, depression, schizoaffective disorder, PTSD who presents with weakness and found to be hyponatremic and was referred by oncology. She has been following 1.2 to 1.5 L fluid restriction, but most days drinks less than that. Reports that she stopped taking urea for about a month and then restarted few days ago. She received about 700 cc of IVF in the ED and feels improved. Currently sitting up in bed in NAD. She is alert and oriented and answering questions appropriately. Her speech is soft and slow. She is using suppl. O2 which is chronic for her. 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 Hearts sounds seem regular, nl. s1s2, abd. soft, nontender, pt moves extremities spontaneously. UA ordered as well urine studies - U sodium and U osm/S osm. Luis ferris monitor BMP after pt received IVF. Nephrology consult. PT/OT. Mag replaced. TSH elevated T4 pending. Dilcia Borges MD
[2020-10-01 17:18] LABS: BUN Creatinine Ratio 9.6 (10-20); Blood Urea Nitrogen 5 mg/dl (7-18); Calcium 8.9 mg/dl (8.5-10.1); Carbon Dioxide 23 mmol/L (21-32); Chloride 90 mmol/L (98-107); Est GFR (African American) 117.9; Est GFR (Non-African American) 101.8; Glucose 111 mg/dl (70-99); Sodium 123 mmol/L (136-145)
[2020-10-01] MEDS ORDERED: CARBOHYDRATES FOR HYPOGLYCEMIA PO PRN (17:48)
[2020-10-01] MEDS ORDERED: ALUMINUM/MAGNESIUM SUSP 30 ML UDC PO PRN (17:48)
[2020-10-01] MEDS ORDERED: POLYETHYLENE (MIRALAX) 17 GM PACK PO PRN (17:48)
[2020-10-01] MEDS ORDERED: GLUCOSE 10 TABS/TUBE PO PRN (17:48)
[2020-10-01] MEDS ORDERED: ALBUTEROL 0.083% NEBU SOLN 3 ML VIAL INH PRN (17:48)
[2020-10-01] MEDS ORDERED: DEXTROSE 50% 50 ML SYRINGE IV PRN (17:48)
[2020-10-01] MEDS ORDERED: FLUTICASONE PROPIONATE NA SPR 16 GM BTL PRN (17:48)
[2020-10-01] MEDS ORDERED: MAGNESIUM HYDROXIDE SUSP 30 ML UDC PO PRN (17:48)
[2020-10-01] MEDS ORDERED: ALBUTEROL HFA 8 GM INHALER INH PRN (17:48)
[2020-10-01] MEDS ORDERED: ONDANSETRON INJ 2 MG/ML 2 ML VIAL IV PRN (17:48)
[2020-10-01] MEDS ORDERED: GLUCOSE 40% GEL 15 GM TUBE PO PRN (17:48)
[2020-10-01] MEDS ORDERED: DOCUSATE SODIUM/SENNA 50/8.6MG TAB PO PRN (17:48)
[2020-10-01] MEDS ORDERED: GLUCAGON FOR INJ 1 MG VIAL SQ PRN (17:48)
[2020-10-01] MEDS: LIOTHYRONINE SODIUM 5 MCG TAB PO SCH (20:58)
[2020-10-01] MEDS: APIXABAN 5 MG TABLET PO SCH (20:59)
[2020-10-01] MEDS: ASPIRIN 81 MG ECTAB PO SCH (20:59)
[2020-10-01] MEDS: FLECAINIDE ACETATE 100 MG TABLET PO SCH (20:59)
[2020-10-01] MEDS: PANTOprazole 40 MG TAB PO SCH (20:59)
[2020-10-01] MEDS: MONTELUKAST SODIUM 10 MG TABLET PO SCH (20:59)
[2020-10-01] MEDS: lisinopril 20 MG TAB PO SCH (21:00)
[2020-10-01 22:21] LABS: Appearance Urine Clear (Clear); Bilirubin Urine Negative (Negative); Blood Urine Negative (Negative); Color Urine Yellow; Glucose Urine UA Negative (Negative); Ketones Urine Negative (Negative); Leukocyte Esterase Urine 2+ (Negative); Nitrite Urine Positive (Negative); Protein Urine Negative (Negative); Specific Gravity Urine 1.008 (1.000-1.030); Urobilinogen Urine Negative (Negative)
[2020-10-01 22:32] LABS: RBC Urine 0-4 /hpf (0-4)
[2020-10-01 22:33] LABS: Bacteria Urine 3+ (Negative); Renal Epithelial Cells Urine 0-5 /lpf (0-5); WBC Urine >30 /hpf (0-5)
[2020-10-01 23:08] LABS: BUN Creatinine Ratio 9.1 (10-20); Calcium 8.8 mg/dl (8.5-10.1); Creatinine Clr Calc Pharmacy 81.6 ml/min; Est GFR (African American) 111.4; Est GFR (Non-African American) 96.1; Potassium 3.7 mmol/L (3.5-5.1)
[2020-10-02 02:26] LABS: Hemoglobin 10.3 g/dL (12.0-16.0); Mean Corpuscular Hemoglobin 25.1 pg (25-34); Mean Corpuscular Hgb Conc 33.2 g/dL (32-36); Mean Corpuscular Volume 75.6 fL (80-100); Platelet Count 234 K/uL (130-400); RDW Coefficient of Variation 15.6 % (11.5-14.5); RDW Standard Deviation 43.7 fL (36.4-46.3); White Blood Count 3.11 K/uL (4.8-10.8)
[2020-10-02 02:44] LABS: Albumin Level 3.3 gm/dl (3.4-5.0); BUN Creatinine Ratio 9.5 (10-20); Calcium 8.3 mg/dl (8.5-10.1); Creatinine Clr Calc Pharmacy 93.5 ml/min; Est GFR (African American) 116.5; Est GFR (Non-African American) 100.5; Magnesium 1.8 mg/dl (1.8-2.4); Potassium 3.8 mmol/L (3.5-5.1)
[2020-10-02 02:46] LABS: Albumin Globulin Ratio 1.2 (0.9-2); Bilirubin,Total 0.3 mg/dl (0.2-1); Globulin 2.8 gm/dl (2.5-4.0); Total Protein 6.1 gm/dl (6.4-8.2)
[2020-10-02] MEDS: LEVOTHYROXINE SODIUM 100 MCG TABLET PO SCH (05:07)
[2020-10-02 06:53] LABS: BUN Creatinine Ratio 8.9 (10-20); Calcium 8.5 mg/dl (8.5-10.1); Creatinine Clr Calc Pharmacy 92.9 ml/min; Est GFR (African American) 115.8; Est GFR (Non-African American) 99.9; Potassium 3.7 mmol/L (3.5-5.1)
[2020-10-02] MEDS: UMECLIDINIUM BROMIDE 62.5MCG/BLISTER 7 PUFFS/INHALER INH SCH (08:19)
[2020-10-02] MEDS: FLUTICASONE/VILANTEROL 100/25MCG 14 PUFFS/INHALER INH SCH (08:20)
[2020-10-02] MEDS: MULTIVITAMIN TAB PO SCH (08:20)
[2020-10-02] MEDS: PRAVASTATIN SOD 40 MG TAB PO SCH (08:20)
[2020-10-02] MEDS: PANTOprazole 40 MG TAB PO SCH ×2 (08:20→20:56)
[2020-10-02] MEDS: VERAPAMIL HCL 240 MG TABCR PO SCH (08:20)
[2020-10-02] MEDS: FLECAINIDE ACETATE 100 MG TABLET PO SCH ×2 (08:20→20:56)
[2020-10-02] MEDS: LIOTHYRONINE SODIUM 5 MCG TAB PO SCH ×2 (08:20→20:56)
[2020-10-02] MEDS: APIXABAN 5 MG TABLET PO SCH ×2 (08:20→20:56)
[2020-10-02] MEDS: lisinopril 20 MG TAB PO SCH (08:20)
[2020-10-02] MEDS: MAGNESIUM OXIDE 400 MG TAB PO SCH (08:21)
[2020-10-02] MEDS: buPROPion SR 100 MG TABCR PO SCH (08:21)
[2020-10-02] MEDS: UREA (URE-NA) 15 GM PACK PO SCH (08:21)
[2020-10-02] MEDS: CALCIUM CARBONATE 1250MG TAB PO SCH (08:21)
[2020-10-02] MEDS ORDERED: THIOTHIXENE 5 MG CAP PO SCH (09:00)
[2020-10-02 10:33] LABS: BUN Creatinine Ratio 31.4 (10-20); Calcium 9.2 mg/dl (8.5-10.1); Creatinine Clr Calc Pharmacy 92.9 ml/min; Est GFR (African American) 115.8; Est GFR (Non-African American) 99.9; Potassium 3.8 mmol/L (3.5-5.1)
--- NOTE | 2020-10-02 11:11 | Nephrology Consultation ---
Date of Consultation October 02, 2020 Assessment & Plan (1) Hyponatremia: hypotonic euvolemic hyponatremia > most c/w SIADH, though she had an element of volume depletion on presentation; response to hydration stalled. also w/ elevated TSH, on recently increased nsaid, and ACEI. OP sNa 120; was 122 on presentation 10/01 at 1500; trended up to 126 by 0200 then plateau'd as of 10 am today. K and mag ok. Max sNa for tomorrow am is 130 -tightened FR to 1.5L -recheck bmp 1600 ordered -cont urea -defer to primary service to manage thyroid meds as needed -lowered lisinopril to 10 mg bid from 20 bid -no further IV fluids at this time -cont current ASA for now -lasix allergy noted Present on Admission?: Yes History of Present Illness Reason for Consultation: hyponatremia Requesting Physician: Dr Shannon Attending Physician: Benigno Shannon MD History of Present Illness 60 y/o F whom I'm asked to see for hyponatremia was admitted w/ sNa 122 (120 as OP) yesterday after presenting w/ lightheadedness, generalized weakness, and inability to ambulate. PMH includes small cell lung ca s/p 4 cycles of carboplatin and etoposide with radiation completed 02/21/2020 including prophylactic cranial radiation, known hx of SIADH on urea and 1.2-1.5L FR as OP, hypothyroid, HTN, PAF on Eliquis and flecainide, chronic respiratory failure secondary to emphysema on 2-3 L of O2, RAKESH on CPAP, history of CVA without residual deficit, CAD, prediabetes, depression, schizoaffective disorder, PTSD. Also w/ recent fall 09/03/20 > c/b acute T spine compression fracture -- her ASA was increased to 162 mg daily for this. Note severe allergy to lasix. Denies other nsaid use. Most recent sodium prior to this was 07/22 at 133. She states had not been drinking even a liter daily of late. Had 700 mL NS in ER as well as another 500 mL overnight. SNa has uptrended to 126 where it has since plateau'd from 0200 through 10 am labs today. No sob and w/ stable chronic cough, no n/v, no fall. endorses some confusion, vinny at admission, as well as marked fatigue, unintended 10 lb wt loss past 8 wks. Allergies Allergy/AdvReac Type Severity Reaction Status Date / Time Beta-Blockers Allergy Severe Confusion; Verified 09/03/20 00:11 (Beta-Adrenergic Bloc Diarrhea; Rash furosemide [From Lasix] Allergy Severe "LUNGS Verified 09/03/20 00:11 CLOSE UP" tetracycline Allergy Intermediate RASH; Verified 09/03/20 00:11 "MYCINS" ALLERGY acetaminophen Allergy Mild GI UPSET Verified 09/03/20 00:11 clindamycin Allergy Unknown "MYCINS" Verified 09/03/20 00:11 ALLERGY diltiazem Allergy Unknown ? Verified 09/03/20 00:11 Sulfa (Sulfonamide Allergy Unknown Unknown Verified 09/03/20 00:11 Antibiotics) sumatriptan Allergy Unknown "TRIPTANS" Verified 09/03/20 00:11 ALLERGY morphine Allergy Unknown Verified 09/03/20 00:11 codeine AdvReac Severe SYNCOPE Verified 09/03/20 00:11 PER PATIENT oxycodone AdvReac Mild GI UPSET Verified 09/03/20 00:11 METAL JEWELRY AdvReac Mild ITCHINESS Uncoded 09/03/20 00:11 "WITH CHEAP JEWELRY" Home Medications Medication Instructions Recorded Confirmed Type apixaban 5 mg tablet 5 mg PO BID #180 tab 03/14/19 10/01/20 History flecainide 100 mg tablet 100 mg PO BID #180 tab 03/14/19 10/01/20 History levothyroxine 100 mcg tablet 100 mcg PO DAILYBB tab 03/14/19 10/01/20 History montelukast 10 mg tablet 10 mg PO HS tab 03/14/19 10/01/20 History omeprazole 20 mg capsule,delayed 20 mg PO BID cap 03/14/19 10/01/20 History release albuterol sulfate 90 mcg/actuation 2 puffs INH Q6H PRN 03/27/19 10/01/20 History aerosol inhaler bupropion HCl 200 mg tablet,12 hr 200 mg PO QAM ea 03/27/19 10/01/20 History sustained-release sennosides-docusate sodium 1 tab PO QAM PRN #30 tab 11/12/19 10/01/20 Rx [Senokot-S] Oxygen Home #1 ea 11/20/19 10/01/20 History calcium carbonate 500 mg calcium 500 mg PO DAILY 11/20/19 10/01/20 History (1,250 mg) tablet liothyronine 5 mcg tablet 5 mcg PO BID tab 11/20/19 10/01/20 History magnesium oxide 400 mg PO DAILY 11/20/19 10/01/20 History metformin 1,000 mg tablet 1,000 mg PO BID 11/20/19 10/01/20 History multivitamin 1 tab PO DAILY 11/20/19 10/01/20 History ondansetron HCl 8 mg tablet 8 mg PO TID PRN tab 11/20/19 10/01/20 History prochlorperazine maleate 10 mg 10 mg PO Q6H PRN tab 11/20/19 10/01/20 History tablet verapamil 240 mg 24 hr 240 mg PO DAILY 11/20/19 10/01/20 History capsule,extended release fluticasone propionate 50 2 sprays INTNAS DAILY PRN 11/22/19 10/01/20 History mcg/actuation nasal spray,suspension thiothixene 5 mg capsule 5 mg PO DAILY cap 11/22/19 10/01/20 History tiotropium bromide 18 mcg capsule 18 mcg INHALATION DAILY puffs 01/21/20 10/01/20 History with inhalation device albuterol sulfate 2.5 mg INH Q6H PRN 04/01/20 10/01/20 History lisinopril 20 mg PO BID 07/21/20 10/01/20 History pravastatin 80 mg PO DAILY 07/21/20 10/01/20 History urea 1 packet PO DAILY 07/21/20 10/01/20 History aspirin 162 mg PO HS #30 tab 07/22/20 10/01/20 Rx fluticasone propion-salmeterol 1 inh INHALATION Q12H 10/01/20 10/01/20 History [Wixela Inhub] Patient History Medical History Abnormal mammography CAD (coronary artery disease) Chronic cerebral ischemia Chronic hyponatremia Chronic respiratory failure with hypoxia Common migraine without aura Contusion of left hip COPD (chronic obstructive pulmonary disease) On oxygen Depression Diaphragmatic hernia Diverticulosis of colon Dizziness DS (disseminated sclerosis) Dyslipidemia Dysmetabolic syndrome X Eczema Encounter for pre-operative examination GERD (gastroesophageal reflux disease) Hearing loss HTN (hypertension) Hypothyroidism Memory loss Migraines Neuropathy Non-occlusive coronary artery disease Old anteroseptal myocardial infarction (2004) RAKESH on CPAP Osteoporosis, unspecified Paroxysmal A-fib Presence of stent in LAD coronary artery (2004) Schizoaffective disorder SIADH (syndrome of inappropriate ADH production) Small cell carcinoma of lung Unspecified osteomyelitis, ankle and foot Surgical History History of bunionectomy History of colonoscopy History of coronary angioplasty Stent by Dr. Bryan History of tubal ligation History of wisdom tooth extraction Family History Father , 56yo Hypertension Liver cancer Migraines Mother , at 65yo Breast cancer Diabetes Hypertension Emphysema lung Brother No problems noted. Sister Diabetes Liver cancer H/O liver transplant Hypertension Son No problems noted. Son Prediabetes Social History Smoking Status: Never smoker Tobacco Type: Cigarettes Cigarettes Per Day: 2-2.5 packs per day; Second Hand Exposure: No; Hx Alcohol Use: No Hx Substance Use: No Preferred Language: [place]ian Communication Ability: Effective Visual Impairment: No Limitations Hearing Ability: Normal Oxyacetylene Burner Required: No Beliefs That Will Affect Care: None marital status: Current Living Situation: Family Current Living Situation Comment: Lives with son current occupational status: unemployed current occupation: On disability How many Children do You have: 2 Other Information That Helps Us Care for You: No Feels Safe at Home: Yes Safety Concerns: Feels Safe At This Time Diet Comment: High protein diet, fluid restriction, diabetic diet; caffeine: No during the past year weight has: decreased > 10 lbs Assistive Devices: None Review of Systems Review of Systems: All systems reviewed & are unremarkable except as noted in HPI & below Physical Exam Constitutional: well developed; no acute distress on 02NC; appears chronically ill/frail Eyes: EOM intact bilaterally ENMT: Ears: no external ear abnormality Nose: no external nose abnormality Mouth: + dry oral mucous membranes Neck: no nuchal rigidity Respiratory: normal respiratory effort Auscultation: lungs clear to auscultation bilaterally and + diminished lung sounds Cardiovascular: Rate/Rhythm: regular rate and regular rhythm Extremities: no edema Gastrointestinal (Abdomen): Inspection/Auscultation: normal bowel sounds Percussion/Palpation: abdomen soft; abdomen nontender Musculoskeletal: Extremities: strength 5/5 throughout Skin: no rashes, warm and dry Neurologic: bonilla, fluent speech, no tremor Psychiatric: Orientation: alert and oriented x 3 (some confusion) Speech: normal rate/rhythm/volume of speech Results & Data ([facility]) Vital Signs (Past 12 Hours) Vital Signs Temp Pulse Pulse Resp BP BP Pulse Ox 10/02/20 07:29 36.6 C 77 19 117/76 99 10/02/20 04:06 20 10/02/20 02:46 36.8 C 82 24 153/88 H 96 10/01/20 23:39 36.5 C 82 24 151/81 H 100 10/01/20 23:07 82 16 98 Laboratory Results 10/02/20 02:17 10/02/20 09:52 TSH 13 serum osm 255 urine osm 257, Danish 60 UA s.g 1008
--- NOTE | 2020-10-02 15:39 | Hospitalist Progress Note ---
Date of Service October 02, 2020 Assessment & Plan (1) Weakness: (2) SIADH (syndrome of inappropriate ADH production): (3) Hyponatremia: Patient is a 60 yr female With H/O Small cell lung ca s/p 4 cycles of carboplatin and etoposide with radiation completed 02/21/2020 as well as prophylactic cranial radiation, SIADH, PAF anticoagulated on Eliquis and rhythm controlled on flecainide, chronic respiratory failure secondary to emphysema on chronic 2 L of O2, RAKESH on CPAP, history of CVA without residual deficit, CAD, hypothyroidism, prediabetes, depression, schizoaffective disorder, PTSD who presents to ED 2/2 hyponatremia and referred by oncology. Hyponatremia Likely SIADH H/O Chronic hyponatremia, SIADH Sodium levels: 122>>126 Continue fluid restriction Continue renal Appreciate nephrology input IV fluids discontinued Monitor sodium levels Elevated TSH H/O hypothyroidism Normal Free T4 continue levothyroxine, cytomel, thiothixene Will recheck TSH, Free T4 in AM (4) Hypomagnesemia: Replace electrolytes as needed Monitor (5) Chronic respiratory failure with hypoxia: Secondary to COPD continue 2-3L of O2, home inhalers No signs of acute exacerbation Continue home inhalers (6) Small cell carcinoma of lung: Small cell lung ca s/p 4 cycles of carboplatin and etoposide with radiation completed 02/21/2020 as well as prophylactic cranial radiation Follows Dr. Nolasco (7) Paroxysmal A-fib: Rate controlled Continue verapamil, flecainide On apixaban for anticoagulation HTN Lisinopril dose decreased to 10 mg twice daily Continue current medications Prediabetes HbA1C: 6.0 on 07/22/20 Was on metformin Diet control History of radiation pneumonitis Follows with [facility] pulmonology s/p prednisone therapy H/O CVA continue Asa, statin Also on Eliquis RAKESH Bipap 02/20 @ HS DVT Px: Apixaban Code Status Full Code Disposition Likely discharge home when medically stable Admission and Anticipated Discharge Date Admission Date: October 01, 2020 Subjective Patient is seen and examined at bedside States feeling tired today Sodium level slowly improving Denies chest pain, dyspnea, dizziness, nausea, abdominal pain Offers no other complaints Review of Systems Review of Systems: All systems reviewed & are unremarkable except as noted in HPI & below Physical Exam Physical Exam: Physical Exam: Vitals signs as noted above General Appearance:Moderately built and nourished, no apparent distress Head: normocephalic, Atraumatic Eyes: normal inspection, EOMI Neck: supple, Trachea midline Respiratory/Chest: Decreased breath sounds, CTA, No accessory muscle use Cardiovascular: S1, S2, No murmur Abdomen/GI:Soft, Non tender, Bowel sounds present Extremities/Musculoskelatal:normal inspection, no edema Neurologic/Psych:AAOX3, grossly no focal neurological deficits Skin: normal color, warm Results & Data Results & Data ([facility]) Vital Signs (Past 12 Hours) Vital Signs Temp Pulse Resp BP Pulse Ox 10/02/20 11:32 36.9 C 79 17 144/78 H 95 10/02/20 07:29 36.6 C 77 19 117/76 99 10/02/20 04:06 20 Laboratory Results Short CBC 10/02/20 Range/Units 02:17 WBC 3.11 L (4.8-10.8) K/uL Hgb 10.3 L (12.0-16.0) g/dL Hct 31.0 L (37-47) % Plt Count 234 (130-400) K/uL BMP 10/01/20 10/01/20 10/02/20 16:55 22:25 02:17 Sodium 123 L 124 L 126 L Potassium 4.0 3.7 3.8 Chloride 90 L 91 L 94 L Carbon Dioxide 23 24 26 BUN 5 L 6 L 5 L Creatinine 0.53 L 0.63 0.55 L Glucose 111 H 77 81 Calcium 8.9 8.8 8.3 L 10/02/20 10/02/20 05:44 09:52 Sodium 126 L 126 L Potassium 3.7 3.8 Chloride 94 L 92 L Carbon Dioxide 24 27 BUN 5 L 18 D Creatinine 0.56 L 0.56 L Glucose 72 79 Calcium 8.5 9.2 Cardiac Enzymes 10/01/20 Range/Units 15:00 Troponin I < 0.015 (0-0.045) ng/ml Liver Function 10/01/20 10/02/20 Range/Units 15:00 02:17 Total Bilirubin 0.3 0.3 (0.2-1) mg/dl AST 9 L (15-37) U/L ALT 17 (12-78) U/L Alkaline Phosphatase 72 68 (45-117) U/L Albumin 3.3 L (3.4-5.0) gm/dl Urine 10/01/20 Range/Units 22:00 Urine Color Yellow Urine Appearance Clear (Clear) Urine pH 6.0 (4.5-7.5) Ur Specific [place] 1.008 (1.000-1.030) Urine Protein Negative (Negative) Urine Glucose (UA) Negative (Negative)
[2020-10-02 16:30] LABS: BUN Creatinine Ratio 28.1 (10-20); Creatinine Clr Calc Pharmacy 76.5 ml/min; Est GFR (African American) 108.7; Est GFR (Non-African American) 93.7; Potassium 4.1 mmol/L (3.5-5.1)
[2020-10-02] MEDS: lisinopril 10 MG TAB PO SCH (20:56)
[2020-10-02] MEDS: MONTELUKAST SODIUM 10 MG TABLET PO SCH (20:56)
[2020-10-02] MEDS: ASPIRIN 81 MG ECTAB PO SCH (20:56)
[2020-10-02] MEDS: THIOTHIXENE 5 MG CAP PO SCH (22:07)
[2020-10-03] MEDS: LEVOTHYROXINE SODIUM 100 MCG TABLET PO SCH (06:32)
[2020-10-03 06:57] LABS: Hematocrit (blood only) 33.9 % (37-47); Hemoglobin 11.2 g/dL (12.0-16.0); Mean Corpuscular Hemoglobin 24.9 pg (25-34); Mean Corpuscular Volume 75.3 fL (80-100); Mean Platelet Volume 9.6 fL (7.4-10.4); Platelet Count 260 K/uL (130-400); RDW Coefficient of Variation 15.5 % (11.5-14.5); RDW Standard Deviation 42.9 fL (36.4-46.3); White Blood Count 2.99 K/uL (4.8-10.8)
[2020-10-03 07:44] LABS: BUN Creatinine Ratio 14.9 (10-20); Calcium 9.2 mg/dl (8.5-10.1); Creatinine Clr Calc Pharmacy 89.2 ml/min; Est GFR (African American) 114.5; Est GFR (Non-African American) 98.8; Magnesium 1.7 mg/dl (1.8-2.4); Potassium 3.7 mmol/L (3.5-5.1)
[2020-10-03 07:50] LABS: T4 Free Thyroxine 0.93 ng/dl (0.8-1.6); Thyroid Stimulating Hormone 11.4 uIu/ml (0.300-4.500)
[2020-10-03] MEDS ORDERED: POTASSIUM CHLORIDE CRTAB 20 MEQ TABCR PO ONE (09:02)
--- NOTE | 2020-10-03 09:02 | Nephrology Progress Note ---
Date of Service October 03, 2020 Assessment & Plan (1) Hyponatremia: hypotonic euvolemic hyponatremia > most c/w SIADH, though she had an element of volume depletion on presentation; response to hydration stalled. also w/ elevated TSH, on recently increased nsaid, and ACEI. OP sNa 120; was 122 on presentation 10/01 at 1500; trended up to 126 by 0200 on 10/02 since then plateau'd 126-128. K and mag ok. Max sNa for tomorrow am is 133 ->>>tightened FR to 1.2L ->>>recheck bmp 1600 ordered>> K 4.1, Na 127 still; no changes to care ->>>doubled urea dose to 30 gm daily >>>repleted K -defer to primary service to manage thyroid meds as needed -lowered lisinopril to 10 mg bid from 20 bid -no further IV fluids at this time -cont current ASA for now -lasix allergy noted Care coordinated w/ Dr Shannon. Admission and Anticipated Discharge Date Admission Date: October 01, 2020 Subjective no interval events or concerns -- denies N, worsenign sob, edema, confusion; feels her weaknes sis improving. seen on rounds this am 1020. Review of Systems Review of Systems: All systems reviewed & are unremarkable except as noted in Subjective Physical Exam Constitutional: well developed; no acute distress Eyes: EOM intact bilaterally ENMT: Ears: no external ear abnormality Nose: no external nose abnormality Mouth: + dry oral mucous membranes Neck: no nuchal rigidity Respiratory: normal respiratory effort Auscultation: lungs clear to auscultation bilaterally and + diminished lung sounds Cardiovascular: Rate/Rhythm: regular rate and regular rhythm Extremities: no edema Gastrointestinal (Abdomen): Inspection/Auscultation: normal bowel sounds Percussion/Palpation: abdomen soft; abdomen nontender Musculoskeletal: Extremities: strength 5/5 throughout Skin: no rashes, warm and dry Neurologic: bonilla, fluent speech, no tremor Psychiatric: Orientation: alert and oriented x 3 (some confusion) Speech: normal rate/rhythm/volume of speech Results & Data ([facility]) Vital Signs (Past 12 Hours) Vital Signs Temp Pulse Resp BP BP Pulse Ox 10/03/20 08:47 37.0 C 88 18 104/64 95 10/03/20 05:04 36.5 C 76 16 139/83 99 10/02/20 23:40 36.4 C L 75 16 149/84 H 99 Laboratory Results 10/03/20 06:37 10/03/20 06:37
[2020-10-03] MEDS: UREA (URE-NA) 15 GM PACK PO SCH ×2 (09:56→10:47)
[2020-10-03] MEDS: buPROPion SR 100 MG TABCR PO SCH (09:57)
[2020-10-03] MEDS: FLECAINIDE ACETATE 100 MG TABLET PO SCH ×2 (09:57→21:27)
[2020-10-03] MEDS: MULTIVITAMIN TAB PO SCH (09:57)
[2020-10-03] MEDS: PRAVASTATIN SOD 40 MG TAB PO SCH (09:57)
[2020-10-03] MEDS: lisinopril 10 MG TAB PO SCH ×2 (09:57→21:26)
[2020-10-03] MEDS: VERAPAMIL HCL 240 MG TABCR PO SCH (09:57)
[2020-10-03] MEDS: PANTOprazole 40 MG TAB PO SCH ×2 (09:57→21:27)
[2020-10-03] MEDS: LIOTHYRONINE SODIUM 5 MCG TAB PO SCH ×2 (09:57→21:28)
[2020-10-03] MEDS: APIXABAN 5 MG TABLET PO SCH ×2 (09:57→21:26)
[2020-10-03] MEDS: cefTRIAXone SODIUM 1,000 MG in DEXTROSE 5% 50 ML IV SCH (09:58)
[2020-10-03] MEDS: CALCIUM CARBONATE 1250MG TAB PO SCH (09:58)
[2020-10-03] MEDS: FLUTICASONE/VILANTEROL 100/25MCG 14 PUFFS/INHALER INH SCH (09:58)
[2020-10-03] MEDS: MAGNESIUM OXIDE 400 MG TAB PO SCH (09:58)
[2020-10-03] MEDS: UMECLIDINIUM BROMIDE 62.5MCG/BLISTER 7 PUFFS/INHALER INH SCH (09:58)
--- NOTE | 2020-10-03 15:43 | Hospitalist Progress Note ---
Date of Service October 03, 2020 Assessment & Plan (1) Weakness: (2) SIADH (syndrome of inappropriate ADH production): (3) Hyponatremia: Patient is a 60 yr female With H/O Small cell lung ca s/p 4 cycles of carboplatin and etoposide with radiation completed 02/21/2020 as well as prophylactic cranial radiation, SIADH, PAF anticoagulated on Eliquis and rhythm controlled on flecainide, chronic respiratory failure secondary to emphysema on chronic 2 L of O2, RAKESH on CPAP, history of CVA without residual deficit, CAD, hypothyroidism, prediabetes, depression, schizoaffective disorder, PTSD who presents to ED 2/2 hyponatremia and referred by oncology. Hyponatremia Likely SIADH H/O Chronic hyponatremia, SIADH Sodium levels: 122>>126>127 Continue fluid restriction-- Continue Urea--increased o 30mg daily Appreciate nephrology input IV fluids discontinued Monitor sodium levels UTI-POA Urine Cx:E.Coli Continue Ceftriaxone Subclinical hypothyroidism H/O hypothyroidism Elevated TSH Normal Free T4 continue levothyroxine, cytomel, thiothixene Increased Levothyroxine to 112 mcg daily Needs repeat thyroid function tests in 4 to 6 weeks as outpatient (4) Hypomagnesemia: Replace electrolytes as needed Monitor (5) Chronic respiratory failure with hypoxia: Secondary to COPD continue 2-3L of O2, home inhalers No signs of acute exacerbation Continue home inhalers (6) Small cell carcinoma of lung: Small cell lung ca s/p 4 cycles of carboplatin and etoposide with radiation completed 02/21/2020 as well as prophylactic cranial radiation Follows Dr. Nolasco (7) Paroxysmal A-fib: Rate controlled Continue verapamil, flecainide On apixaban for anticoagulation HTN Lisinopril dose decreased to 10 mg twice daily Continue current medications Prediabetes HbA1C: 6.0 on 07/22/20 Was on metformin Diet control History of radiation pneumonitis Follows with [facility] pulmonology s/p prednisone therapy H/O CVA continue Asa, statin Also on Eliquis RAKESH Bipap 02/20 @ HS DVT Px: Apixaban Code Status Full Code Disposition Likely discharge home when medically stable Admission and Anticipated Discharge Date Admission Date: October 01, 2020 Subjective Patient is seen and examined at bedside Generalized weakness much improved Reports increased urine frequency Denies chest pain, dyspnea, dizziness, nausea, abdominal pain, dysuria, hematria Offers no other complaints Review of Systems Review of Systems: All systems reviewed & are unremarkable except as noted in HPI & below Physical Exam Physical Exam: Physical Exam: Vitals signs as noted above General Appearance:Moderately built and nourished, no apparent distress Head: normocephalic, Atraumatic Eyes: normal inspection, EOMI Neck: supple, Trachea midline Respiratory/Chest: Decreased breath sounds, CTA, No accessory muscle use Cardiovascular: S1, S2, No murmur Abdomen/GI:Soft, Non tender, Bowel sounds present Extremities/Musculoskelatal:normal inspection, no edema Neurologic/Psych:AAOX3, grossly no focal neurological deficits Skin: normal color, warm Results & Data Results & Data ([facility]) Vital Signs (Past 12 Hours) Vital Signs Temp Pulse Pulse Resp BP BP Pulse Ox 10/03/20 12:25 36.9 C 82 18 112/74 100 10/03/20 08:47 37.0 C 88 18 104/64 95 10/03/20 08:00 72 10/03/20 05:04 36.5 C 76 16 139/83 99 Laboratory Results Short CBC 10/03/20 Range/Units 06:37 WBC 2.99 L (4.8-10.8) K/uL Hgb 11.2 L (12.0-16.0) g/dL Hct 33.9 L (37-47) % Plt Count 260 (130-400) K/uL BMP 10/02/20 10/03/20 15:54 06:37 Sodium 128 L 127 L Potassium 4.1 3.7 Chloride 94 L 93 L Carbon Dioxide 27 26 BUN 19 H 9 D Creatinine 0.68 0.58 L Glucose 86 87 Calcium 9.0 9.2
[2020-10-03 17:30] LABS: BUN Creatinine Ratio 52.8 (10-20); Calcium 9.2 mg/dl (8.5-10.1); Est GFR (African American) 108.7; Est GFR (Non-African American) 93.7; Potassium 4.1 mmol/L (3.5-5.1)
[2020-10-03] MEDS: THIOTHIXENE 5 MG CAP PO SCH (21:27)
[2020-10-03] MEDS: ASPIRIN 81 MG ECTAB PO SCH (21:27)
[2020-10-03] MEDS: MONTELUKAST SODIUM 10 MG TABLET PO SCH (21:27)
[2020-10-03] MEDS ORDERED: HEPARIN 100 UNIT/ML 5ML FLUSH FLUSH PRN (22:59)
[2020-10-04] MEDS: LEVOTHYROXINE SODIUM 112 MCG TABLET PO SCH (06:30)
[2020-10-04 07:11] LABS: Calcium 9.1 mg/dl (8.5-10.1); Creatinine Clr Calc Pharmacy 90.7 ml/min; Est GFR (African American) 115.2; Est GFR (Non-African American) 99.4; Magnesium 1.9 mg/dl (1.8-2.4)
[2020-10-04] MEDS: VERAPAMIL HCL 240 MG TABCR PO SCH (07:55)
[2020-10-04] MEDS: FLUTICASONE/VILANTEROL 100/25MCG 14 PUFFS/INHALER INH SCH (07:55)
[2020-10-04] MEDS: PANTOprazole 40 MG TAB PO SCH ×2 (07:55→20:35)
[2020-10-04] MEDS: CALCIUM CARBONATE 1250MG TAB PO SCH (07:55)
[2020-10-04] MEDS: LIOTHYRONINE SODIUM 5 MCG TAB PO SCH ×2 (07:55→20:32)
[2020-10-04] MEDS: MAGNESIUM OXIDE 400 MG TAB PO SCH (07:55)
[2020-10-04] MEDS: APIXABAN 5 MG TABLET PO SCH ×2 (07:55→20:33)
[2020-10-04] MEDS: MULTIVITAMIN TAB PO SCH (07:55)
[2020-10-04] MEDS: UMECLIDINIUM BROMIDE 62.5MCG/BLISTER 7 PUFFS/INHALER INH SCH (07:55)
[2020-10-04] MEDS: PRAVASTATIN SOD 40 MG TAB PO SCH (07:55)
[2020-10-04] MEDS: UREA (URE-NA) 15 GM PACK PO SCH (07:56)
[2020-10-04] MEDS: buPROPion SR 100 MG TABCR PO SCH (07:56)
[2020-10-04] MEDS: lisinopril 10 MG TAB PO SCH ×2 (07:56→20:35)
[2020-10-04] MEDS: FLECAINIDE ACETATE 100 MG TABLET PO SCH ×2 (07:56→20:35)
[2020-10-04] MEDS: cefTRIAXone SODIUM 1,000 MG in DEXTROSE 5% 50 ML IV SCH (10:16)
--- NOTE | 2020-10-04 15:01 | Hospitalist Progress Note ---
Date of Service October 04, 2020 Assessment & Plan (1) Weakness: (2) SIADH (syndrome of inappropriate ADH production): (3) Hyponatremia: Patient is a 60 yr female With H/O Small cell lung ca s/p 4 cycles of carboplatin and etoposide with radiation completed 02/21/2020 as well as prophylactic cranial radiation, SIADH, PAF anticoagulated on Eliquis and rhythm controlled on flecainide, chronic respiratory failure secondary to emphysema on chronic 2 L of O2, RAKESH on CPAP, history of CVA without residual deficit, CAD, hypothyroidism, prediabetes, depression, schizoaffective disorder, PTSD who presents to ED 2/2 hyponatremia and referred by oncology. Hyponatremia Likely SIADH H/O Chronic hyponatremia, SIADH Sodium levels: 122>>126>127>130 Continue fluid restriction Continue Urea--increased o 30mg daily Appreciate nephrology input IV fluids discontinued Monitor sodium levels Nephrology following UTI-POA Urine Cx:E.Coli Continue Ceftriaxone Day #2 Subclinical hypothyroidism H/O hypothyroidism Elevated TSH Normal Free T4 continue levothyroxine, cytomel, thiothixene Increased Levothyroxine to 112 mcg daily Needs repeat thyroid function tests in 4 to 6 weeks as outpatient (4) Hypomagnesemia: Replace electrolytes as needed Monitor (5) Chronic respiratory failure with hypoxia: Secondary to COPD continue 2-3L of O2, home inhalers No signs of acute exacerbation Continue home inhalers (6) Small cell carcinoma of lung: Small cell lung ca s/p 4 cycles of carboplatin and etoposide with radiation completed 02/21/2020 as well as prophylactic cranial radiation Follows Dr. Nolasco (7) Paroxysmal A-fib: Rate controlled Continue verapamil, flecainide On apixaban for anticoagulation HTN Lisinopril dose decreased to 10 mg twice daily Continue current medications Prediabetes HbA1C: 6.0 on 07/22/20 Was on metformin Diet control History of radiation pneumonitis Follows with [facility] pulmonology s/p prednisone therapy H/O CVA continue Asa, statin Also on Eliquis RAKESH Bipap 02/20 @ HS DVT Px: Apixaban Code Status Full Code Disposition Likely discharge home when medically stable Admission and Anticipated Discharge Date Admission Date: October 01, 2020 Subjective Patient is seen and examined at bedside Sitting in bed comfortably this morning No new complaints Sodium levels improved to 130 Denies chest pain, dyspnea, dizziness, nausea, abdominal pain, dysuria, hematuria Review of Systems Review of Systems: All systems reviewed & are unremarkable except as noted in HPI & below Physical Exam Physical Exam: Physical Exam: Vitals signs as noted above General Appearance:Moderately built and nourished, no apparent distress Head: normocephalic, Atraumatic Eyes: normal inspection, EOMI Neck: supple, Trachea midline Respiratory/Chest: Decreased breath sounds, CTA, No accessory muscle use Cardiovascular: S1, S2, No murmur Abdomen/GI:Soft, Non tender, Bowel sounds present Extremities/Musculoskelatal:normal inspection, no edema Neurologic/Psych:AAOX3, grossly no focal neurological deficits Skin: normal color, warm Results & Data Results & Data ([facility]) Vital Signs (Past 12 Hours) Vital Signs Temp Pulse Pulse Resp BP Pulse Ox 10/04/20 11:12 36.6 C 74 18 144/58 H 99 10/04/20 08:00 36.4 C 76 20 136/85 98 10/04/20 07:32 68 Laboratory Results [facility] 10/03/20 10/04/20 16:31 06:13 Sodium 127 L 130 L Potassium 4.1 4.0 Chloride 92 L 96 L Carbon Dioxide 27 27 BUN 36 H D 15 D Creatinine 0.68 0.57 L Glucose 111 H 95 Calcium 9.2 9.1 Diagnostic Findings [facility] 10/03/20 10/04/20 16:31 06:13 Sodium 127 L 130 L Potassium 4.1 4.0 Chloride 92 L 96 L Carbon Dioxide 27 27 BUN 36 H D 15 D Creatinine 0.68 0.57 L Glucose 111 H 95 Calcium 9.2 9.1
--- NOTE | 2020-10-04 15:27 | Progress Notes ---
DATE: 10/04/2020 SUBJECTIVE: Overnight, no new issues. Serum sodium has steadily improved and is now 130. OBJECTIVE: VITAL SIGNS: Blood pressure 144/58, pulse rate 74, temperature 36.6, 99% on 2 liter nasal cannula. HEENT: Mucous membranes moist. NECK: Supple. No jugular venous distention. CHEST: Bilateral prolonged expiration. Occasional wheezing. CARDIOVASCULAR: S1, S2 regular. ABDOMEN: Soft, nontender. EXTREMITIES: Shows no edema. NEUROLOGIC: No focal deficit. LABORATORY TESTS: From this morning was reviewed and compared to the previous labs; sodium slightly better at 130, BUN 15, creatinine 0.57. ASSESSMENT AND PLAN: A 60-year-old female with hyponatremia. Hyponatremia -----consistent with syndrome of inappropriate antidiuretic hormone secretion with some element of volume depletion on presentation. Serum sodium has improved to 130 with fluid restriction and urea. Given the rate of correction, which is appropriate, continue current management. At this point, we can do labs 2 times a day. [facility]
[2020-10-04] MEDS: ASPIRIN 81 MG ECTAB PO SCH (20:32)
[2020-10-04] MEDS: THIOTHIXENE 5 MG CAP PO SCH (20:34)
[2020-10-04] MEDS: MONTELUKAST SODIUM 10 MG TABLET PO SCH (20:34)
[2020-10-05] MEDS: LEVOTHYROXINE SODIUM 112 MCG TABLET PO SCH (05:56)
[2020-10-05 08:22] LABS: BUN Creatinine Ratio 20.1 (10-20); Calcium 8.8 mg/dl (8.5-10.1); Creatinine Clr Calc Pharmacy 87.9 ml/min; Est GFR (African American) 113.9; Est GFR (Non-African American) 98.2; Magnesium 1.9 mg/dl (1.8-2.4)
--- NOTE | 2020-10-05 08:27 | Progress Notes ---
DATE: 10/05/2020 NEPHROLOGY PROGRESS NOTE SUBJECTIVE: Overnight, no new issues. Her serum sodium from this morning is not back yet. She denies any complaints. PHYSICAL EXAMINATION: VITAL SIGNS: Blood pressure 118/73, pulse rate 74, temperature 36.5, 100% on 3 liter nasal cannula. HEENT: Mucous membrane is moist. NECK: Supple. No jugular venous distention. CHEST: Bilaterally clear to auscultation. Poor inspiratory effort. CARDIOVASCULAR: S1, S2 regular. ABDOMEN: Soft, nontender. EXTREMITIES: Show no edema. LABORATORY TEST: From this morning is not back, but it is pending. ASSESSMENT AND PLAN: A 60-year-old female with hyponatremia. Hyponatremia: This is consistent with syndrome of inappropriate antidiuretic hormone secretion with some element of volume depletion on presentation. Serum sodium was 130 with fluid restriction and low-dose urea yesterday. Further recommendation will depend on the blood work results that is still pending at this time. Please call me with the result of the BMP for recommendation regarding discharge medications.
[2020-10-05] MEDS: UMECLIDINIUM BROMIDE 62.5MCG/BLISTER 7 PUFFS/INHALER INH SCH (08:31)
[2020-10-05] MEDS: FLUTICASONE/VILANTEROL 100/25MCG 14 PUFFS/INHALER INH SCH (08:31)
[2020-10-05] MEDS: MULTIVITAMIN TAB PO SCH (08:32)
[2020-10-05] MEDS: CALCIUM CARBONATE 1250MG TAB PO SCH (08:32)
[2020-10-05] MEDS: PRAVASTATIN SOD 40 MG TAB PO SCH (08:32)
[2020-10-05] MEDS: MAGNESIUM OXIDE 400 MG TAB PO SCH (08:32)
[2020-10-05] MEDS: LIOTHYRONINE SODIUM 5 MCG TAB PO SCH (08:32)
[2020-10-05] MEDS: PANTOprazole 40 MG TAB PO SCH (08:32)
[2020-10-05] MEDS: APIXABAN 5 MG TABLET PO SCH (08:32)
[2020-10-05] MEDS: FLECAINIDE ACETATE 100 MG TABLET PO SCH (08:32)
[2020-10-05] MEDS: lisinopril 10 MG TAB PO SCH (08:32)
[2020-10-05] MEDS: buPROPion SR 100 MG TABCR PO SCH (08:32)
[2020-10-05] MEDS: VERAPAMIL HCL 240 MG TABCR PO SCH (08:32)
[2020-10-05] MEDS: UREA (URE-NA) 15 GM PACK PO SCH (08:33)
[2020-10-05] MEDS: cefTRIAXone SODIUM 1,000 MG in DEXTROSE 5% 50 ML IV SCH (10:11)
[2020-10-05 11:11] VITALS: PULSE 75; TEMP 98.1; O2SAT 98
--- NOTE | 2020-10-05 12:11 | Hospitalist Progress Note ---
Date of Service October 05, 2020 Assessment & Plan (1) Weakness: (2) SIADH (syndrome of inappropriate ADH production): (3) Hyponatremia: Patient is a 60 yr female With H/O Small cell lung ca s/p 4 cycles of carboplatin and etoposide with radiation completed 02/21/2020 as well as prophylactic cranial radiation, SIADH, PAF anticoagulated on Eliquis and rhythm controlled on flecainide, chronic respiratory failure secondary to emphysema on chronic 2 L of O2, RAKESH on CPAP, history of CVA without residual deficit, CAD, hypothyroidism, prediabetes, depression, schizoaffective disorder, PTSD who presents to ED 2/2 hyponatremia and referred by oncology. Hyponatremia Likely SIADH H/O Chronic hyponatremia, SIADH Sodium levels: 122>126>127>130>132 Continue fluid restriction Continue Urea Appreciate nephrology input Monitor sodium levels Needs follow up with Nephrology upon discharge UTI-POA Urine Cx:E.Coli Continue Ceftriaxone Day #3 Subclinical hypothyroidism H/O hypothyroidism Elevated TSH Normal Free T4 continue levothyroxine, cytomel, thiothixene Increased Levothyroxine to 112 mcg daily Needs repeat thyroid function tests in 4 to 6 weeks as outpatient (4) Hypomagnesemia: Replace electrolytes as needed Monitor (5) Chronic respiratory failure with hypoxia: Secondary to COPD continue 2-3L of O2, home inhalers No signs of acute exacerbation Continue home inhalers (6) Small cell carcinoma of lung: Small cell lung ca s/p 4 cycles of carboplatin and etoposide with radiation completed 02/21/2020 as well as prophylactic cranial radiation Follows Dr. Nolasco (7) Paroxysmal A-fib: Rate controlled Continue verapamil, flecainide On apixaban for anticoagulation HTN Lisinopril dose decreased to 10 mg twice daily Continue current medications Prediabetes HbA1C: 6.0 on 07/22/20 Was on metformin Diet control History of radiation pneumonitis Follows with [facility] pulmonology s/p prednisone therapy H/O CVA continue Asa, statin Also on Eliquis RAKESH Bipap 02/20 @ HS DVT Px: Apixaban Code Status Full Code Disposition Plan to discharge home today Admission and Anticipated Discharge Date Admission Date: October 01, 2020 Subjective Patient is seen and examined at bedside Sodium levels improved to 132 today Discussed with Nephrology Denies chest pain, dyspnea, dizziness, nausea, abdominal pain, dysuria, hematuria Eager to get discharged Review of Systems Review of Systems: All systems reviewed & are unremarkable except as noted in HPI & below Physical Exam Physical Exam: Physical Exam: Vitals signs as noted above General Appearance:Moderately built and nourished, no apparent distress Head: normocephalic, Atraumatic Eyes: normal inspection, EOMI Neck: supple, Trachea midline Respiratory/Chest: Decreased breath sounds, CTA, No accessory muscle use Cardiovascular: S1, S2, No murmur Abdomen/GI:Soft, Non tender, Bowel sounds present Extremities/Musculoskelatal:normal inspection, no edema Neurologic/Psych:AAOX3, grossly no focal neurological deficits Skin: normal color, warm Results & Data Results & Data ([facility]) Vital Signs (Past 12 Hours) Vital Signs Temp Pulse Pulse Resp BP Pulse Ox 10/05/20 11:10 36.7 C 75 20 125/81 98 10/05/20 07:41 36.5 C 74 18 118/73 100 10/05/20 07:01 69 10/05/20 03:08 36.5 C 69 17 146/81 H 100 10/05/20 00:29 63 Laboratory Results [facility] 10/05/20 07:15 Sodium 132 L Potassium 4.0 Chloride 97 L Carbon Dioxide 29 BUN 12 Creatinine 0.59 L Glucose 101 H Calcium 8.8
--- NOTE | 2020-10-05 12:34 | Discharge Summary ---
Date of Service October 05, 2020 Admission HPI Per Admitting Provider This is a 60 year-old female who has significant past medical history of Small cell lung ca s/p 4 cycles of carboplatin and etoposide with radiation completed 02/21/2020 as well as prophylactic cranial radiation, SIADH, PAF anticoagulated on Eliquis and rhythm controlled on flecainide, chronic respiratory failure secondary to emphysema on chronic 2 L of O2, RAKESH on CPAP, history of CVA without residual deficit, CAD, hypothyroidism, prediabetes, depression, schizoaffective disorder, PTSD who presents to ED 2/2 hyponatremia and referred by oncology. Of significance patient last hospitalization was 07/21 to 07/22/2020 secondary to strokelike symptoms. MRI was negative for new insult. She was discharged home with increased ASA dose to 160 mg daily. She was also seen and evaluated in ED on 09/03/2020 secondary to fall and was diagnosed with new T-spine compression fracture. This has since improved. She presents today after abnormal lab work done by hematology. Her sodium is outpatient was found to be 120. She was seen and evaluated by hematology yesterday and noted to have increased weakness, dizziness and mental fogginess. She also complains of being fatigued. She has had a 10 pound weight loss in the past 2 months, unintentional. Overall decent appetite but poor fluid intake. She has been following 1.2 to 1.5 L fluid restriction, but most days drinks less than that. She does live at home with her son. No new falls since August. Since being in ED she overall feels improved and feels mentally, "clear." She she also denies any dizziness or lightheadedness. She states this has improved since receiving some IV fluid. She otherwise denies recent illness, fever, chills, sweats, syncope, chest pain, shortness of breath, palpitations, nausea, vomiting, abdominal pain, dysuria, increased urgency or frequency with urination, melena or hematochezia. She does have a chronic dry cough secondary to lung cancer. In ED sodium mildly improved to 122. So far she has received 700 mL of IV fluid. Admission Exam Per Admitting Provider Physical Exam Physical Exam: Constitutional: Petite, chronically ill-appearing, female, vitals as above, NAD, sitting up in bed, pleasant, conversing easily Head: Normocephalic, Atraumatic Eyes: PERRL, conjunctivae normal, anicteric sclerae ENMT: external ear and nose normal, oropharynx normal Neck: trachea midline, no thyromegaly normal visual inspection Respiratory: normal respiratory effort, lungs clear to auscultation, no wheeze, rales, rhonchi. Normal insp/exp effort, no accessory muscle use Cardiovascular: RRR, no murmur, no edema Vessels: no JVD or carotid bruit Chest: RACW port in place Abdomen: normal bowel sounds, soft, nontender, no hepatosplenomegaly Musculoskeletal: no cyanosis or clubbing, extremities motor strength 5/5 Skin: no rashes, warm and dry moderate turgor Neurologic: PERRL, EOMI, accommodation nl, no face palsy, no dysarthria CN's II-XI intact bilaterally and moves all extremities Psychiatric: A+Ox3, euthymic affect Lymphatic: no cervical or axillary lymphadenopathy : deferred Principal Diagnosis Hyponatremia Urinary Tract Infection Hypothyroidism Discharge Data Allergies Allergy/AdvReac Type Severity Reaction Status Date / Time Beta-Blockers Allergy Severe Confusion; Verified 09/03/20 00:11 (Beta-Adrenergic Bloc Diarrhea; Rash furosemide [From Lasix] Allergy Severe "LUNGS Verified 09/03/20 00:11 CLOSE UP" tetracycline Allergy Intermediate RASH; Verified 09/03/20 00:11 "MYCINS" ALLERGY acetaminophen Allergy Mild GI UPSET Verified 09/03/20 00:11 clindamycin Allergy Unknown "MYCINS" Verified 09/03/20 00:11 ALLERGY diltiazem Allergy Unknown ? Verified 09/03/20 00:11 Sulfa (Sulfonamide Allergy Unknown Unknown Verified 09/03/20 00:11 Antibiotics) sumatriptan Allergy Unknown "TRIPTANS" Verified 09/03/20 00:11 ALLERGY morphine Allergy Unknown Verified 09/03/20 00:11 codeine AdvReac Severe SYNCOPE Verified 09/03/20 00:11 PER PATIENT oxycodone AdvReac Mild GI UPSET Verified 09/03/20 00:11 METAL JEWELRY AdvReac Mild ITCHINESS Uncoded 09/03/20 00:11 "WITH CHEAP JEWELRY" Consultations 10/01/20 15:44 ED Decision to Admit Stat 10/01/20 15:54 Consult Nephrology Routine Procedures Performed CXR: 1. Advanced emphysematous change with no acute cardiopulmonary abnormality. 2. Fibrotic change is again noted at the left lung base. Hospital Course (1) SIADH (syndrome of inappropriate ADH production): (2) Hyponatremia: Patient is a 60 yr female With H/O Small cell lung ca s/p 4 cycles of carbop latin and etoposide with radiation completed 02/21/2020 as well as prophylactic cranial radiation, SIADH, PAF anticoagulated on Eliquis and rhythm controlled on flecainide, chronic respiratory failure secondary to emphysema on chronic 2 L of O2, RAKESH on CPAP, history of CVA without residual deficit, CAD, hypothyroidism, prediabetes, depression, schizoaffective disorder, PTSD who presents to ED 2/2 hyponatremia and referred by oncology. Hyponatremia Likely SIADH H/O Chronic hyponatremia, SIADH Sodium levels: 122>126>127>130>132 Continue fluid restriction Continue Urea Appreciate nephrology input Monitor sodium levels Needs follow up with Nephrology upon discharge UTI-POA Urine Cx:E.Coli Continue Ceftriaxone Day #3 Subclinical hypothyroidism H/O hypothyroidism Elevated TSH Normal Free T4 continue levothyroxine, cytomel, thiothixene Increased Levothyroxine to 112 mcg daily Needs repeat thyroid function tests in 4 to 6 weeks as outpatient (3) Chronic respiratory failure with hypoxia: Secondary to COPD continue 2-3L of O2, home inhalers No signs of acute exacerbation Continue home inhalers (4) Small cell carcinoma of lung: Small cell lung ca s/p 4 cycles of carboplatin and etoposide with radiation completed 02/21/2020 as well as prophylactic cranial radiation Follows Dr. Nolasco (5) Paroxysmal A-fib: Rate controlled Continue verapamil, flecainide On apixaban for anticoagulation HTN Lisinopril dose decreased to 10 mg twice daily Continue current medications Prediabetes HbA1C: 6.0 on 07/22/20 Was on metformin Diet control History of radiation pneumonitis Follows with [facility] pulmonology s/p prednisone therapy H/O CVA continue Asa, statin Also on Eliquis RAKESH Bipap 02/20 @ HS DVT Px: Apixaban Code Status Full Code Disposition Plan to discharge home today Total Time Total Time Spent Total Time Spent (In Minutes): 41 minutes Discharge Plan Discharge Items Patient Disposition: Home - Self-Care Reason For Visit: Hyponatremia Discharge Diagnosis: Hyponatremia Urinary Tract Infection Hypothyroidism Condition on Discharge: Fair Activity: Per Instructions section Exercise/Sports: Gradually increase as tolerated Non-emergency contact: Primary Care Provider and Assistant Tennis Professional Call non-emergency contact if: you have any medication questions, your symptoms worsen, your pain is not controlled, your pain is worsening, your pain is concerning for you and you have a fever Follow-up/Referrals: Dmitry Roland DO [Primary Care Provider] - Diet: Carb Consistent or DM2 and Heart Healthy Fluids: 1500ml (6 cups) Ambulatory Orders: Basic Metabolic Panel (Routine) Timeframe: 3 Days Location: Determined by Patient Ordered By: Benigno Blankenship Attending Provider Instructions: Follow-up with your primary care physician Dr. Roland in 1 week Follow up with your Assistant Tennis Professional in 1 week with blood test (Basic metabolic Panel) Complete the antibiotic course Cefuroxime 250mg Twice a day for 2 more days to complete the antibiotic course for urinary tract infection Get Blood Test (Basic metabolic Panel) in 3 days and follow-up with your sterile preparation technician for further recommendations. Get repeat thyroid function tests (TSH, Free T4) in 4 weeks and follow-up with your primary care physician/Land Resource Specialist for further adjustment of your levothyroxine dose. Continue Fluid restriction as recommended by your Assistant Tennis Professional. Medication Changes: Lisinopril is decreased to 10 mg twice a day as recommended by your sterile preparation technician Levothyroxine is increased to 112 mcg daily Seek immediate medical attention if your symptoms reoccur or worsen Pending Studies at Discharge: No Stand-Alone Forms: My Results [employer], Smoking Cessation Medications and DC Order Prescriptions: New lisinopril 10 mg Tablet 10 mg PO BID Qty: 60 RF: 0 levothyroxine [Synthroid] 112 mcg Tablet 112 mcg PO DAILYBB Qty: 30 RF: 0 cefuroxime axetil 250 mg tablet 250 mg PO BID Qty: 4 RF: 0 Continued calcium carbonate [Calcium 500] 500 mg calcium (1,250 mg) tablet 500 mg PO DAILY RF: 0 magnesium oxide 400 mg magnesium capsule 400 mg PO DAILY RF: 0 metformin 1,000 mg tablet 1,000 mg PO BID RF: 0 verapamil 240 mg capsule,ext rel. pellets 24 hr 240 mg PO DAILY RF: 0 (DME) Oxygen Home Liters Per Minute See Rx Instructions .ROUTE .MEDSUPPLY Qty: 1 RF: 0 liothyronine [Cytomel] 5 mcg tablet 5 mcg PO BID RF: 0 multivitamin Tablet 1 tab PO DAILY RF: 0 fluticasone propionate [Flonase Allergy Relief] 50 mcg/actuation spray,suspension 2 sprays INTNAS DAILY PRN (Reason: allergy symptoms) RF: 0 albuterol sulfate 2.5 mg /3 mL (0.083 %) solution for nebulization 2.5 mg INH Q6H PRN (Reason: shortness of breath or wheezing) RF: 0 apixaban 5 mg tablet 5 mg PO BID Qty: 180 RF: 0 flecainide 100 mg tablet 100 mg PO BID Qty: 180 RF: 0 omeprazole 20 mg capsule,delayed release(DR/EC) 20 mg PO BID RF: 0 montelukast 10 mg tablet 10 mg PO HS RF: 0 albuterol sulfate [Ventolin HFA] 90 mcg/actuation HFA aerosol inhaler 2 puffs INH Q6H PRN (Reason: Shortness Of Breath Or Wheezing) RF: 0 bupropion HCl 200 mg tablet sustained-release 12 hr 200 mg PO QAM RF: 0 thiothixene 5 mg capsule 5 mg PO DAILY RF: 0 fluticasone propion-salmeterol [Wixela Inhub] 500-50 mcg/dose Blister With Device 1 inh INHALATION Q12H RF: 0 Spiriva with HandiHaler 18 mcg capsule, w/inhalation device 18 mcg INHALATION DAILY RF: 0 sennosides-docusate sodium [Senokot-S] 8.6-50 mg Tablet 1 tab PO QAM PRN (Reason: constipation) Qty: 30 RF: 0 ondansetron HCl 8 mg tablet 8 mg PO TID PRN (Reason: nausea/vomiting) RF: 0 prochlorperazine maleate [Compazine] 10 mg tablet 10 mg PO Q6H PRN (Reason: Nausea) RF: 0 pravastatin 80 mg tablet 80 mg PO DAILY RF: 0 urea 15 gram Powder In Packet 1 packet PO DAILY RF: 0 aspirin 81 mg Tablet,Delayed Release (Dr/Ec) 162 mg PO HS Qty: 30 RF: 3 Discontinued levothyroxine 100 mcg tablet 100 mcg PO DAILYBB RF: 0 lisinopril 20 mg tablet 20 mg PO BID RF: 0 Discharge Orders: Discharge Order (Routine); Ordered 10/05/20 Ordered By: Benigno Shannon Admission Data Admit Date/Time: 10/01/20 15:54 Attending Provider: Benigno Shannon Admit Provider: Darrian Borges Primary Care Provider: Dmitry Roland Other Providers: Darrian Borges ; Lu [place] Other Interventions: Discharge Summary Assessment (RN) Last Done: 10/05/20 12:41
[2020-10-05 12:42] VITALS: BP 138/82
== END 2020-10-05 16:15 | disposition home or self-care (01) | DRG 644 ==
LOC: ED 14:06 → 2S 15:54 → SUATTDRO 15:54 → 2S 17:06 → 2N 10-04 01:47

== ENCOUNTER 2021-02-02 13:04 | Inpatient (IN) ==
--- NOTE | 2021-02-02 14:35 | Emergency Department Note ---
Impression & Plan Hyponatremia, Small cell carcinoma of lung, SIADH (syndrome of inappropriate ADH production) ED Provider Note NAME: ROBERT TERRAZAS AGE: 60 SEX: F : 1960 ARRIVES VIA: Ambulance INFORMANT: Patient, ED PROVIDER(S): Philippe Caban MD CHIEF COMPLAINT: Abnormal lab HPI: This is a 60-year-old female who presents emergency department after being sent in by her oncologist. The patient's oncologist is concerned that the patient's sodium level is low. The patient has a history of SIADH. She has been diagnosed with small cell carcinoma of the lung however she reports she is not receiving any treatment including radiation or chemotherapy. The patient herself has no complaints. She denies any fevers chills weakness confusion. ROS: See above HPI for pertinent positives & negatives. A total of 10 systems reviewed and were otherwise negative. PAST MEDICAL HISTORY: See Below PAST SURGICAL HISTORY: See Below FAMILY HISTORY: See Below SOCIAL HISTORY: See Below HOME MEDICATIONS: See Below ALLERGIES: See Below VITALS: See Below PHYSICAL EXAMINATION: VITAL SIGNS - Vital signs and nursing notes were reviewed. GENERAL - 60-year-old female appearing stated age who is in no acute distress. Communicates well with provider and answers questions appropriately. SKIN - Without rashes. HEAD - NC/AT. EYES - PERRL with EOMI bilaterally. Sclera anicteric. Palpebral conjunctiva pink and moist with no injection noted. EARS - No deformities of external structures noted on gross examination bilaterally. NOSE - Midline and without cyanosis. No epistaxis or purulent drainage noted. Septum midline without deviation or septal hematoma noted. MOUTH/OROPHARYNX - Without perioral cyanosis. Buccal mucosa pink and moist and without leukoplakia. Tongue midline with equal elevation of palate bilaterally. No tonsillar hypertrophy, erythema, or exudates noted. NECK - Neck with FROM. Supple to palpation. No nuchal rigidity. LUNGS - Chest wall symmetric without accessory muscle use, intercostals retractions, or central cyanosis. Normal vesicular breath sounds CTA B/L. No wheezes, rales, or rhonchi appreciated. CARDIAC - RRR with S1/S2. No murmur, rubs, or gallops appreciated. ABDOMEN - Abdominal contour without pulsations or visible masses. BS normoactive all four quadrants. No tenderness, palpable masses, hepatosplenomegaly, or ascites noted. EXTREMITIES - No clubbing or peripheral cyanosis. No pretibial edema present. +3/5 radial, posterior tibial, and dorsalis pedis pulses palpated throughout. +5/5 strength noted in UE/LE bilaterally. NEUROLOGIC - Cranial nerves II through XII grossly intact. Sensory intact to light touch throughout. Patellar reflexes +2/4. PSYCH - A&Ox3 and cooperates fully with examiner. Pt is very pleasant and interacts well with examiner. MEDICAL DECISION MAKING: Patient was seen and evaluated as above in room A3. Review was performed of nursing notes and vital signs. I did review pertinent previous visits and patien t history. After obtaining a thorough history and physical examination the above work up was performed. This 60-year-old female with a history of SIADH who presents to the [facility] complaining of hyponatremia. Patient sodium level was found to be low at 122. She was given a normal saline bolus here. I did discuss the case with the hospitalist service he did agree to admit the patient. Patient is in agreement with treatment plan An order was placed for continuous cardiac monitoring. The monitor shows a rate of 80 with Normal SInus rhythm. The patient was evaluated during a period of high volume and high acuity during the global COVID-19 pandemic, and that diagnosis was suspected/considered upon their initial presentation. Their evaluation, treatment and testing was consistent with current guidelines for patients who present with complaints or symptoms that may be related to COVID-19. Patient was seen while provider was wearing PPE. Triage Nursing notes reviewed. Prior medical records reviewed Vital Signs: reviewed and remarkable for no significant abnormalities Differential diagnosis: Infection, dehydration, metabolic abnormality, hypo/hyperglycemia, electrolyte disturbance, anemia, hypoxia, cardiac sources, intracerebral event, toxicologic, neurologic, as well as other pathologies. ER treatment provided: See below Diagnostics interpreted by me: ECG: Normal sinus rhythm QTC is 452 ventricular rate is [address] elevation or depression, EKG is compared to 07/21/2020 no significant change was found. Laboratory studies: As stated above and show below. Imaging studies: See below Consultation(s): Internal Medicine Past Med/Surg History Medical History Abnormal mammography CAD (coronary artery disease) Chronic cerebral ischemia Chronic hyponatremia Chronic respiratory failure with hypoxia Common migraine without aura Contusion of left hip COPD (chronic obstructive pulmonary disease) On oxygen Depression Diaphragmatic hernia Diverticulosis of colon Dizziness DS (disseminated sclerosis) Dyslipidemia Dysmetabolic syndrome X Eczema Encounter for pre-operative examination GERD (gastroesophageal reflux disease) Hearing loss HTN (hypertension) Hypothyroidism Memory loss Migraines Neuropathy Non-occlusive coronary artery disease Old anteroseptal myocardial infarction (2004) RAKESH on CPAP Osteoporosis, unspecified Paroxysmal A-fib Presence of stent in LAD coronary artery (2004) Schizoaffective disorder SIADH (syndrome of inappropriate ADH production) Small cell carcinoma of lung Unspecified osteomyelitis, ankle and foot Surgical History History of bunionectomy History of colonoscopy History of coronary angioplasty Stent by Dr. Bryan History of tubal ligation History of wisdom tooth extraction Family History Father , 56yo Hypertension Liver cancer Migraines Mother , at 65yo Breast cancer Diabetes Hypertension Emphysema lung Brother No problems noted. Sister Diabetes Liver cancer H/O liver transplant Hypertension Son No problems noted. 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 Operator Required: No Beliefs That Will Affect Care: None marital status: Current Living Situation: Family Current Living Situation Comment: House no steps into home, into bedroom or into bathroom current occupational status: unemployed current occupation: On disability How many Children do You have: 2 Other Information That Helps Us Care for You: No Feels Safe at Home: Yes Safety Concerns: Feels Safe At This Time Diet Comment: High protein diet, fluid restriction, diabetic diet; caffeine: No during the past year weight has: decreased > 10 lbs Assistive Devices: Oxygen - Continuous Assistive Devices Comment: has CPAP but does not use Allergies Allergies Allergy/AdvReac Type Severity Reaction Status Date / Time Beta-Blockers Allergy Severe Confusion; Verified 02/02/21 14:01 (Beta-Adrenergic Bloc Diarrhea; Rash tetracycline Allergy Intermediate RASH; Verified 02/02/21 14:01 "MYCINS" ALLERGY clindamycin Allergy Unknown "MYCINS" Verified 02/02/21 14:01 ALLERGY diltiazem Allergy Unknown ? Verified 02/02/21 14:01 Sulfa (Sulfonamide Allergy Unknown Unknown Verified 02/02/21 14:01 Antibiotics) sumatriptan Allergy Unknown "TRIPTANS" Verified 02/02/21 14:01 ALLERGY morphine Allergy Unknown Verified 02/02/21 14:01 codeine AdvReac Severe SYNCOPE Verified 02/02/21 14:01 PER PATIENT oxycodone AdvReac Mild GI UPSET Verified 02/02/21 14:01 Home Meds Home Medications Medication Instructions Recorded Confirmed apixaban 5 mg tablet 5 mg PO BID #180 tab 03/14/19 02/02/21 flecainide 100 mg tablet 100 mg PO BID #180 tab 03/14/19 02/02/21 montelukast 10 mg tablet 10 mg PO HS tab 03/14/19 02/02/21 omeprazole 20 mg capsule,delayed 20 mg PO BID cap 03/14/19 02/02/21 release albuterol sulfate 90 mcg/actuation 2 puffs INH Q6H PRN 03/27/19 02/02/21 aerosol inhaler bupropion HCl 200 mg tablet,12 hr 200 mg PO QAM ea 03/27/19 02/02/21 sustained-release Oxygen Home #1 ea 11/20/19 02/02/21 calcium carbonate 500 mg calcium 500 mg PO DAILY 11/20/19 02/02/21 (1,250 mg) tablet liothyronine 5 mcg tablet 5 mcg PO BID tab 11/20/19 02/02/21 magnesium oxide 400 mg PO DAILY 11/20/19 02/02/21 metformin 1,000 mg tablet 1,000 mg PO BID 11/20/19 02/02/21 multivitamin 1 tab PO DAILY 11/20/19 02/02/21 ondansetron HCl 8 mg tablet 8 mg PO TID PRN tab 11/20/19 02/02/21 prochlorperazine maleate 10 mg 10 mg PO Q6H PRN tab 11/20/19 02/02/21 tablet verapamil 240 mg 24 hr 240 mg PO DAILY 11/20/19 02/02/21 capsule,extended release fluticasone propionate 50 2 sprays INTNAS DAILY PRN 11/22/19 02/02/21 mcg/actuation nasal spray,suspension thiothixene 5 mg capsule 5 mg PO DAILY cap 11/22/19 02/02/21 tiotropium bromide 18 mcg capsule 18 mcg INHALATION DAILY puffs 01/21/20 02/02/21 with inhalation device pravastatin 80 mg PO DAILY 07/21/20 02/02/21 urea 1 packet PO DAILY 07/21/20 02/02/21 fluticasone propion-salmeterol 1 inh INHALATION Q12H 10/01/20 02/02/21 [Wixela Inhub] furosemide 20 mg PO BID 02/02/21 02/02/21 sodium chloride 1,000 mg PO BID 02/02/21 02/02/21 Previous Rx's Medication Instructions Recorded sennosides-docusate sodium 1 tab PO QAM PRN #30 tab 11/12/19 [Senokot-S] aspirin 162 mg PO HS #30 tab 07/22/20 levothyroxine [Synthroid] 112 mcg PO DAILYBB #30 tab 10/05/20 lisinopril 10 mg PO BID #60 tab 10/05/20 Results & Data (ED) Vital Signs Vital Signs - 24 hr 02/02/21 13:24 Temperature 36.7 C Temperature Source Oral Pulse Rate 82 Respiratory Rate 18 Blood Pressure 148/93 H Blood Pressure Mean 111 Pulse Oximetry 93 Oxygen Delivery Method Room Air Sepsis Recent Fever Within 48 Hours No Sepsis New/Unexplained Change in Mental Status N/A Sepsis Action Taken by Nursing No Action Required Laboratory Data Result diagrams: 02/04/21 04:08 02/04/21 15:50 Lab Results 02/02/21 02/02/21 02/02/21 Range/Units 14:25 14:25 14:25 WBC 3.61 L (4.8-10.8) K/uL RBC 4.74 (4.2-5.4) M/uL Hgb 12.2 (12.0-16.0) g/dL Hct 35.4 L (37-47) % MCV 74.7 L (80-100) fL MCH 25.7 (25-34) pg MCHC 34.5 (32-36) g/dL RDW Std Deviation 49.2 H (36.4-46.3) fL RDW Coeff of Chepe 17.8 H (11.5-14.5) % Plt Count 237 (130-400) K/uL MPV 9.3 (7.4-10.4) fL Immature Gran % (Auto) 0.0 % Neut % (Auto) 70.0 % Lymph % (Auto) 21.6 % [place] % (Auto) 7.8 % Eos % (Auto) 0.6 % Baso % (Auto) 0.0 % Neut # (Auto) 2.53 (1.4-6.5) K/uL Lymph # (Auto) 0.78 L (1.2-3.4) K/uL [place] # (Auto) 0.28 (0.11-0.59) K/uL Eos # (Auto) 0.02 (0-0.5) K/uL Baso # (Auto) 0.00 (0-0.2) K/uL Immature Gran # (Auto) 0.00 (0.00-0.02) K/uL Sodium 120 L (136-145) mmol/L Potassium 3.9 (3.5-5.1) mmol/L Chloride 86 L (98-107) mmol/L Carbon Dioxide 25 (21-32) mmol/L Anion Gap 9.0 (3-11) BUN 10 (7-18) mg/dl Creatinine 0.45 L (0.6-1.2) mg/dl Est Cr Clr Drug Dosing 116.4 ml/min Est GFR ( Amer) 124.5 ml/min Est GFR (Non-Af Amer) 107.4 ml/min BUN/Creatinine Ratio 20.9 H (10-20) Glucose 93 (70-99) mg/dl Osmolality (280-300) mOsm/kg Calcium 8.9 (8.5-10.1) mg/dl Total Bilirubin 0.3 (0.2-1) mg/dl AST 18 (15-37) U/L ALT 20 (12-78) U/L Alkaline Phosphatase 89 (45-117) U/L Total Creatine Kinase 65 (26-192) U/L Troponin I < 0.015 (0-0.045) ng/ml Total Protein 7.0 (6.4-8.2) gm/dl Albumin 3.6 (3.4-5.0) gm/dl Globulin 3.4 (2.5-4.0) gm/dl Albumin/Globulin Ratio 1.0 (0.9-2) TSH 3.490 (0.300-4.500) uIu/ml COVID-19 Eval Order Covid19 at [facility] SARS-CoV-2 (PCR) (Negative) 02/02/21 02/02/21 Range/Units 14:25 14:25 WBC (4.8-10.8) K/uL RBC (4.2-5.4) M/uL Hgb (12.0-16.0) g/dL Hct (37-47) % MCV (80-100) fL MCH (25-34) pg MCHC (32-36) g/dL RDW Std Deviation (36.4-46.3) fL RDW Coeff of Chepe (11.5-14.5) % Plt Count (130-400) K/uL MPV (7.4-10.4) fL Immature Gran % (Auto) % Neut % (Auto) % Lymph % (Auto) % [place] % (Auto) % Eos % (Auto) % Baso % (Auto) % Neut # (Auto) (1.4-6.5) K/uL Lymph # (Auto) (1.2-3.4) K/uL [place] # (Auto) (0.11-0.59) K/uL Eos # (Auto) (0-0.5) K/uL Baso # (Auto) (0-0.2) K/uL Immature Gran # (Auto) (0.00-0.02) K/uL Sodium (136-145) mmol/L Potassium (3.5-5.1) mmol/L Chloride (98-107) mmol/L Carbon Dioxide (21-32) mmol/L Anion Gap (3-11) BUN (7-18) mg/dl Creatinine (0.6-1.2) mg/dl Est Cr Clr Drug Dosing ml/min Est GFR ( Amer) ml/min Est GFR (Non-Af Amer) ml/min BUN/Creatinine Ratio (10-20) Glucose (70-99) mg/dl Osmolality 247 L (280-300) mOsm/kg Calcium (8.5-10.1) mg/dl Total Bilirubin (0.2-1) mg/dl AST (15-37) U/L ALT (12-78) U/L Alkaline Phosphatase (45-117) U/L Total Creatine Kinase (26-192) U/L Troponin I (0-0.045) ng/ml Total Protein (6.4-8.2) gm/dl Albumin (3.4-5.0) gm/dl Globulin (2.5-4.0) gm/dl Albumin/Globulin Ratio (0.9-2) TSH (0.300-4.500) uIu/ml COVID-19 Eval Order SARS-CoV-2 (PCR) NEGATIVE (Negative) Administered Medications Bupropion HCl (Bupropion Sr 100 Mg Tabcr) 200 mg PO QAM LEROY Stop: 03/05/21 08:59 Last Admin: 02/04/21 10:06 Dose: 200 mg Documented by: [id number] Admin: 02/03/21 08:30 Dose: 200 mg Documented by: [id number] Calcium Carbonate (Calcium Carbonate 1250mg Tab) 1,250 mg PO DAILY LEROY Stop: 03/05/21 08:59 Last Admin: 02/04/21 10:06 Dose: 1,250 mg Documented by: [id number] Admin: 02/03/21 08:30 Dose: 1,250 mg Documented by: [id number] Flecainide Acetate (Flecainide Acetate 100 Mg Tablet) 100 mg PO BID LEROY Stop: 03/04/21 20:59 Last Admin: 02/04/21 22:00 Dose: 100 mg Documented by: [id number] Admin: 02/04/21 10:06 Dose: 100 mg Documented by: [id number] Admin: 02/03/21 21:34 Dose: 100 mg Documented by: [id number] Admin: 02/03/21 08:31 Dose: 100 mg Documented by: [id number] Admin: 02/02/21 21:02 Dose: 100 mg Documented by: [id number] Fluticasone/Vilanterol (Fluticasone/Vilanterol 200/25mcg 14 Puffs/Inhaler) 1 puffs INH DAILY LEROY Stop: 03/05/21 08:59 Last Admin: 02/04/21 10:04 Dose: 1 puffs Documented by: [id number] Admin: 02/03/21 08:29 Dose: 1 puffs Documented by: [id number] Sodium Chloride (Nss 1000ml) 1,000 mls @ 80 mls/hr IV .[id number] LEROY Stop: 03/05/21 09:59 Last Admin: 02/04/21 13:41 Dose: 80 mls/hr Documented by: [id number] Infusion: 02/04/21 13:31 Dose: 80 mls/hr Documented by: [id number] Infusion: 02/04/21 10:03 Dose: 80 mls/hr Documented by: [id number] Infusion: 02/04/21 06:06 Dose: 80 mls/hr Documented by: [id number] Admin: 02/04/21 01:01 Dose: 80 mls/hr Documented by: [id number] Infusion: 02/03/21 23:14 Dose: 80 mls/hr Documented by: [id number] Admin: 02/03/21 10:44 Dose: 80 mls/hr Documented by: [id number] Furosemide 20 mg/ Syringe 2 mls @ 4 mls/min IV BID LEROY Stop: 03/05/21 09:59 Last Admin: 02/04/21 22:00 Dose: 4 mls/min Documented by: [id number] Admin: 02/04/21 10:10 Dose: 4 mls/min Documented by: [id number] Admin: 02/03/21 21:33 Dose: 4 mls/min Documented by: [id number] Admin: 02/03/21 10:45 Dose: 4 mls/min Documented by: [id number] Levothyroxine Sodium (Levothyroxine Sodium 112 Mcg Tablet) 112 mcg PO DAILYBB LEROY Stop: 03/05/21 06:29 Last Admin: 02/04/21 05:52 Dose: 112 mcg Documented by: [id number] Admin: 02/03/21 06:09 Dose: 112 mcg Documented by: [id number] Liothyronine Sodium (Liothyronine Sodium 5 Mcg Tab) 5 mcg PO BID LEROY Stop: 03/04/21 20:59 Last Admin: 02/04/21 22:00 Dose: 5 mcg Documented by: [id number] Admin: 02/04/21 10:06 Dose: 5 mcg Documented by: [id number] Admin: 02/03/21 21:33 Dose: 5 mcg Documented by: [id number] Admin: 02/03/21 08:30 Dose: 5 mcg Documented by: [id number] Admin: 02/02/21 21:01 Dose: 5 mcg Documented by: [id number] Lisinopril (Lisinopril 10 Mg Tab) 10 mg PO BID LEROY Stop: 03/05/21 08:59 Last Admin: 02/04/21 10:06 Dose: 10 mg Documented by: [id number] Admin: 02/03/21 21:33 Dose: 10 mg Documented by: [id number] Admin: 02/03/21 08:30 Dose: 10 mg Documented by: [id number] Magnesium Oxide (Magnesium Oxide 400 Mg Tab) 400 mg PO DAILY LEROY Stop: 03/05/21 08:59 Last Admin: 02/04/21 10:06 Dose: 400 mg Documented by: [id number] Admin: 02/03/21 08:30 Dose: 400 mg Documented by: [id number] Montelukast Sodium (Montelukast Sodium 10 Mg Tablet) 10 mg PO HS LEROY Stop: 03/04/21 20:59 Last Admin: 02/04/21 22:00 Dose: 10 mg Documented by: [id number] Admin: 02/03/21 21:33 Dose: 10 mg Documented by: [id number] Admin: 02/02/21 21:02 Dose: 10 mg Documented by: [id number] Multivitamins (Multivitamin Tab) 1 tab PO DAILY LEROY Stop: 03/05/21 08:59 Last Admin: 02/04/21 10:06 Dose: 1 tab Documented by: [id number] Admin: 02/03/21 08:30 Dose: 1 tab Documented by: [id number] Ondansetron HCl (Ondansetron Inj 2 Mg/Ml 2 Ml Vial) 4 mg IV Q6H PRN PRN Reason: Nausea Stop: 03/04/21 18:02 Last Admin: 02/04/21 10:18 Dose: 4 mg Documented by: [id number] Pantoprazole Sodium (Pantoprazole 40 Mg Tab) 40 mg PO BID LEROY Stop: 03/04/21 20:59 Last Admin: 02/04/21 22:00 Dose: 40 mg Documented by: [id number] Admin: 02/04/21 10:05 Dose: 40 mg Documented by: [id number] Admin: 02/03/21 21:34 Dose: 40 mg Documented by: [id number] Admin: 02/03/21 08:30 Dose: 40 mg Documented by: [id number] Admin: 02/02/21 21:01 Dose: 40 mg Documented by: [id number] Pravastatin Sodium (Pravastatin Sod 40 Mg Tab) 80 mg PO DAILY LEROY Stop: 03/05/21 08:59 Last Admin: 02/04/21 10:06 Dose: 80 mg Documented by: [id number] Admin: 02/03/21 08:30 Dose: 80 mg Documented by: [id number] Sodium Chloride (Sodium Chloride 1 Gm Tablet) 1 gm PO BID LEROY Stop: 03/04/21 20:59 Last Admin: 02/04/21 22:00 Dose: 1 gm Documented by: [id number] Admin: 02/04/21 10:05 Dose: 1 gm Documented by: [id number] Admin: 02/03/21 21:34 Dose: 1 gm Documented by: [id number] Admin: 02/03/21 08:31 Dose: 1 gm Documented by: [id number] Admin: 02/02/21 21:01 Dose: 1 gm Documented by: [id number] Thiothixene (Thiothixene 5 Mg Cap) 5 mg PO DAILY LEROY Stop: 03/05/21 08:59 Last Admin: 02/04/21 10:06 Dose: 5 mg Documented by: [id number] Admin: 02/03/21 08:30 Dose: 5 mg Documented by: [id number] Umeclidinium [place] (Umeclidinium [place] 62.5mcg/Blister 7 Puffs/Inhaler) 1 puffs INH DAILY LEROY Stop: 03/05/21 08:59 Last Admin: 02/04/21 10:05 Dose: 1 puffs Documented by: [id number] Admin: 02/03/21 08:29 Dose: 1 puffs Documented by: [id number] Urea (Urea (Ure-Na) 15 Gm Pack) 15 gm PO TID LEROY Stop: 03/05/21 09:59 Last Admin: 02/04/21 22:00 Dose: 15 gm Documented by: [id number] Admin: 02/04/21 14:43 Dose: 15 gm Documented by: [id number] Admin: 02/04/21 10:15 Dose: 15 gm Documented by: [id number] Admin: 02/03/21 21:34 Dose: 15 gm Documented by: [id number] Admin: 02/03/21 13:32 Dose: 15 gm Documented by: [id number] Admin: 02/03/21 10:01 Dose: Not Given Documented by: [id number] Verapamil HCl (Verapamil Hcl 240 Mg Tabcr) 240 mg PO DAILY LEROY Stop: 03/05/21 08:59 Last Admin: 02/04/21 10:05 Dose: 240 mg Documented by: [id number] Admin: 02/03/21 08:30 Dose: 240 mg Documented by: [id number] Discontinued Medications Apixaban (Apixaban 5 Mg Tablet) 5 mg PO BID LEROY Stop: 03/04/21 20:59 Last Admin: 02/02/21 21:02 Dose: 5 mg Documented by: [id number] Aspirin (Aspirin 81 Mg Ectab) 162 mg PO HS LEROY Stop: 03/04/21 20:59 Last Admin: 02/02/21 21:01 Dose: 162 mg Documented by: [id number] Furosemide (Furosemide 20 Mg Tab) 20 mg PO BID17 LEROY Stop: 03/05/21 08:59 Last Admin: 02/03/21 08:30 Dose: 20 mg Documented by: [id number] Lisinopril (Lisinopril 10 Mg Tab) 10 mg PO NOW ONE Stop: 02/02/21 20:01 Last Admin: 02/02/21 21:02 Dose: 10 mg Documented by: [id number] Urea (Urea (Ure-Na) 15 Gm Pack) 15 gm PO DAILY LEROY Stop: 03/04/21 19:44 Last Admin: 02/03/21 08:31 Dose: 15 gm Documented by: [id number] Admin: 02/02/21 21:01 Dose: 15 gm Documented by: [id number] Discharge Plan Visit Data Chief Complaint: Abnormal Labs/Diagnostic Testing Stated Complaint: LOW NA ED Provider: Philippe Caban Discharge Problem: Hyponatremia, Small cell carcinoma of lung, SIADH (syndrome of inappropriate ADH production) Patient Disposition: Admitted As Inpatient Discharge Instructions Interventions: ED Discharge Assessment Last Done: 02/02/21 17:36
[2021-02-02 14:54] LABS: Eosinophils # (auto) 0.02 K/uL (0-0.5); Eosinophils % (auto) 0.6 %; Hematocrit (blood only) 35.4 % (37-47); Hemoglobin 12.2 g/dL (12.0-16.0); Lymphocytes # (auto) 0.78 K/uL (1.2-3.4); Lymphocytes % (auto) 21.6 %; Mean Corpuscular Hemoglobin 25.7 pg (25-34); Mean Corpuscular Hgb Conc 34.5 g/dL (32-36); Mean Corpuscular Volume 74.7 fL (80-100); Mean Platelet Volume 9.3 fL (7.4-10.4); Monocytes # (auto) 0.28 K/uL (0.11-0.59); Monocytes % (auto) 7.8 %; Neutrophils # (auto) 2.53 K/uL (1.4-6.5); Platelet Count 237 K/uL (130-400); RDW Coefficient of Variation 17.8 % (11.5-14.5); RDW Standard Deviation 49.2 fL (36.4-46.3); Red Blood Count 4.74 M/uL (4.2-5.4); White Blood Count 3.61 K/uL (4.8-10.8)
--- NOTE | 2021-02-02 15:16 | XRay Report ---
XR chest 1V portable HISTORY: weakness COMPARISON: Chest 10/01/2020. FINDINGS: Right jugular Port-A-Cath remains at the proximal SVC. No pneumothorax. No pleural effusion s. The heart is normal in size. Mild emphysema. The right lung is clear. A 1 cm nodular density withi n the left lung apex. This could be due to the overlapping second rib. There is also a new left infra hilar density with a few linear scarlike densities in the left midlung zone. Left basilar interstitia l thickening remain stable. IMPRESSION: Left infrahilar irregular density which is new from the prior study and could be due to post radiatio n change. There is also possible 1 cm left upper lobe nodule. Follow-up chest CT is recommended for f urther evaluation of these findings. ACT 112: Negative or not required by law. Electronically signed by: Abiel Garza M.D. 02/02/2021 3:15 PM
[2021-02-02 15:22] LABS: Alanine Aminotransferase 20 U/L (12-78); Albumin Level 3.6 gm/dl (3.4-5.0); Alkaline Phosphatase 89 U/L (45-117); Aspartate Aminotransferase 18 U/L (15-37); BUN Creatinine Ratio 20.9 (10-20); Bilirubin,Total 0.3 mg/dl (0.2-1); Blood Urea Nitrogen 10 mg/dl (7-18); Calcium 8.9 mg/dl (8.5-10.1); Carbon Dioxide 25 mmol/L (21-32); Chloride 86 mmol/L (98-107); Creatine Kinase 65 U/L (26-192); Creatinine Clr Calc Pharmacy 116.4 ml/min; Est GFR (African American) 124.5 ml/min; Est GFR (Non-African American) 107.4 ml/min; Globulin 3.4 gm/dl (2.5-4.0); Glucose 93 mg/dl (70-99); Potassium 3.9 mmol/L (3.5-5.1); Sodium 120 mmol/L (136-145); Troponin I < 0.015 ng/ml (0-0.045)
--- NOTE | 2021-02-02 16:40 | History & Physical Report ---
Date of Service February 02, 2021 Assessment & Plan (1) Hyponatremia: (2) SIADH (syndrome of inappropriate ADH production): (3) Small cell carcinoma of lung: (4) Chronic respiratory failure with hypoxia: (5) COPD (chronic obstructive pulmonary disease): (6) Paroxysmal A-fib: (7) Hypertension: (8) Chronic cerebral ischemia: (9) Hypothyroidism: (10) Depression: (11) RAKESH on CPAP: This is a 60yo F with a PMH of small cell lung ca s/p 4 cycles of carboplatin and etoposide with radiation completed 02/21/2020 as well as prophylactic cranial radiation, SIADH, PAF anticoagulated on Eliquis and rhythm controlled on flecainide, chronic respiratory failure secondary to emphysema on chronic 2 L of O2, RAKESH on CPAP, history of CVA without residual deficit, CAD, hypothyroidism, prediabetes, depression, schizoaffective disorder, PTSD and other medical problems listed below who was sent over by oncologist for laboratory findings of hyponatremia. Hyponatremia History of chronic hyponatremia, known hx of SIADH - patient unsure whether or note she has been compliant with fluid restriction of 1.2-1.5L -believes she has been drinking less but does not count Endorses "groggy" feeling, generalized weakness CT head wo contrast ordered Unsure if compliant with Urea Sodium of 119 today, last Na was 134 on 12/26/20 Serum osm low at 247 Urine osm, urine urea pending Discussed with Dr. Matson of nephrology - fluid restrict at 1.2 L, continue sodium tablets, urea and lasix per home doses BMP Q4H Small cell carcinoma of lung S/p 4 cycles of carboplatin and etoposide with radiation completed 02/21/2020 as well as prophylactic cranial radiation Recent PET scan from December 2020 shows new metabolically active hepatic metastasis and new lung nodules and metabolically active mediastinal lymphadenopathy. now considered incurable disease Plan to start palliative chemotherapy today with atezolizumab but sent to ER for admission for hyponatremia Follows with Dr. Nolasco Chronic respiratory failure with hypoxia COPD In setting of COPD Continue O2 supplementation 2L NC, home inhalers Paroxysmal Atrial fibrillation Rate and rhythm controlled on flecainide Anticoagulated with Eliquis Hypertension Unsure whether or not she took home BP medications today Continue lisinopril and Verapmil History of CVA Continue asa, statin, Eliquis No current deficits Hypothyroidism TSH wnl Continue levothyroxine, Cytomel, thiothixene Depression Continue bupropion Prediabetes A1c 5.7 in Sep 2020 Holding metformin while inpatient BSG ACHS, add SSI if indicated RAKESH bipap 02/20 @ HS DVT Ppx: Eliquis Code status: FULL PCP: [facility] Dispo: Admitted to PCU Patient seen in collaboration with Dr. Soto. Please see addendum. History of Present Illness Chief Complaint: hyponatremia, sent from onc Primary Care Provider: Dmitry Roland DO This is a 60yo F with a PMH of small cell lung ca s/p 4 cycles of carboplatin and etoposide with radiation completed 02/21/2020 as well as prophylactic cranial radiation, SIADH, PAF anticoagulated on Eliquis and rhythm controlled on flecain anuradha, chronic respiratory failure secondary to emphysema on chronic 2 L of O2, RAKESH on CPAP, history of CVA without residual deficit, CAD, hypothyroidism, prediabetes, depression, schizoaffective disorder, PTSD and other medical problems listed below who was sent over by oncologist for laboratory findings of hyponatremia. Patient follows with oncologist Dr. Nolasco. Recent PET scan from December 2020 shows new metabolically active hepatic metastasis and new lung nodules and metabolically active mediastinal lymphadenopathy. Also with history of a small 5 mm nodule in the brain. She have received 2 prophylactic cranial radiation therapy. Per most recent oncology note, recurrent metastatic disease is incurable. Plan to start palliative chemotherapy with atezolizumab today but lab work revealed hyponatremia at 119. Patient was sent to ED for further evaluation and treatment. Patient with history of SIADH in the setting of lung cancer with fluid restriction in the past of 1.2 to [address] Matson of nephrology in clinic. When asked today about recent food and fluid intake, patient states appetite is decreased and she has been nauseous. Unable to quantify amount of fluid or answer whether or not she is being compliant with restriction. Unsure how many glasses of water she is drinking daily. Feels mentally foggy but not confused. Chronic difficulty with word finding, follows with neurology. Endorses generalized weakness and decreased urinary output. Denies any fever, chills, headache, chest pain, palpitations, shortness of breath, vomiting. Mild left lower quadrant abdominal pain. Denies any diarrhea or constipation. Allergies Allergy/AdvReac Type Severity Reaction Status Date / Time Beta-Blockers Allergy Severe Confusion; Verified 02/02/21 14:01 (Beta-Adrenergic Bloc Diarrhea; Rash furosemide [From Lasix] Allergy Severe "LUNGS Verified 02/02/21 14:01 CLOSE UP" tetracycline Allergy Intermediate RASH; Verified 02/02/21 14:01 "MYCINS" ALLERGY acetaminophen Allergy Mild GI UPSET Verified 02/02/21 14:01 clindamycin Allergy Unknown "MYCINS" Verified 02/02/21 14:01 ALLERGY diltiazem Allergy Unknown ? Verified 02/02/21 14:01 Sulfa (Sulfonamide Allergy Unknown Unknown Verified 02/02/21 14:01 Antibiotics) sumatriptan Allergy Unknown "TRIPTANS" Verified 02/02/21 14:01 ALLERGY morphine Allergy Unknown Verified 02/02/21 14:01 codeine AdvReac Severe SYNCOPE Verified 02/02/21 14:01 PER PATIENT oxycodone AdvReac Mild GI UPSET Verified 02/02/21 14:01 METAL JEWELRY AdvReac Mild ITCHINESS Uncoded 02/02/21 14:01 "WITH CHEAP JEWELRY" Home Medications Medication Instructions Recorded Confirmed Type apixaban 5 mg tablet 5 mg PO BID #180 tab 03/14/19 02/02/21 History flecainide 100 mg tablet 100 mg PO BID #180 tab 03/14/19 02/02/21 History montelukast 10 mg tablet 10 mg PO HS tab 03/14/19 02/02/21 History omeprazole 20 mg capsule,delayed 20 mg PO BID cap 03/14/19 02/02/21 History release albuterol sulfate 90 mcg/actuation 2 puffs INH Q6H PRN 03/27/19 02/02/21 History aerosol inhaler bupropion HCl 200 mg tablet,12 hr 200 mg PO QAM ea 03/27/19 02/02/21 History sustained-release sennosides-docusate sodium 1 tab PO QAM PRN #30 tab 11/12/19 02/02/21 Rx [Senokot-S] Oxygen Home #1 ea 11/20/19 02/02/21 History calcium carbonate 500 mg calcium 500 mg PO DAILY 11/20/19 02/02/21 History (1,250 mg) tablet liothyronine 5 mcg tablet 5 mcg PO BID tab 11/20/19 02/02/21 History magnesium oxide 400 mg PO DAILY 11/20/19 02/02/21 History metformin 1,000 mg tablet 1,000 mg PO BID 11/20/19 02/02/21 History multivitamin 1 tab PO DAILY 11/20/19 02/02/21 History ondansetron HCl 8 mg tablet 8 mg PO TID PRN tab 11/20/19 02/02/21 History prochlorperazine maleate 10 mg 10 mg PO Q6H PRN tab 11/20/19 02/02/21 History tablet verapamil 240 mg 24 hr 240 mg PO DAILY 11/20/19 02/02/21 History capsule,extended release fluticasone propionate 50 2 sprays INTNAS DAILY PRN 11/22/19 02/02/21 History mcg/actuation nasal spray,suspension thiothixene 5 mg capsule 5 mg PO DAILY cap 11/22/19 02/02/21 History tiotropium bromide 18 mcg capsule 18 mcg INHALATION DAILY puffs 01/21/20 02/02/21 History with inhalation device pravastatin 80 mg PO DAILY 07/21/20 02/02/21 History urea 1 packet PO DAILY 07/21/20 02/02/21 History aspirin 162 mg PO HS #30 tab 07/22/20 02/02/21 Rx fluticasone propion-salmeterol 1 inh INHALATION Q12H 10/01/20 02/02/21 History [Wixela Inhub] levothyroxine [Synthroid] 112 mcg PO DAILYBB #30 tab 10/05/20 02/02/21 Rx lisinopril 10 mg PO BID #60 tab 10/05/20 02/02/21 Rx furosemide 20 mg PO BID 02/02/21 02/02/21 History sodium chloride 1,000 mg PO BID 02/02/21 02/02/21 History Past Med/Surg History Medical History Abnormal mammography CAD (coronary artery disease) Chronic cerebral ischemia Chronic hyponatremia Chronic respiratory failure with hypoxia Common migraine without aura Contusion of left hip COPD (chronic obstructive pulmonary disease) On oxygen Depression Diaphragmatic hernia Diverticulosis of colon Dizziness DS (disseminated sclerosis) Dyslipidemia Dysmetabolic syndrome X Eczema Encounter for pre-operative examination GERD (gastroesophageal reflux disease) Hearing loss HTN (hypertension) Hypothyroidism Memory loss Migraines Neuropathy Non-occlusive coronary artery disease Old anteroseptal myocardial infarction (2004) RAKESH on CPAP Osteoporosis, unspecified Paroxysmal A-fib Presence of stent in LAD coronary artery (2004) Schizoaffective disorder SIADH (syndrome of inappropriate ADH production) Small cell carcinoma of lung Unspecified osteomyelitis, ankle and foot Surgical History History of bunionectomy History of colonoscopy History of coronary angioplasty Stent by Dr. Bryan History of tubal ligation History of wisdom tooth extraction Family History Father , 56yo Hypertension Liver cancer Migraines Mother , at 65yo Breast cancer Diabetes Hypertension Emphysema lung Brother No problems noted. Sister Diabetes Liver cancer H/O liver transplant Hypertension Son No problems noted. Son Prediabetes Social History Smoking Status: Former smoker Tobacco Type: Cigarettes Cigarettes Per Day: 2-2.5 packs per day; Second Hand Exposure: No; Hx Alcohol Use: No Hx Substance Use: No Preferred Language: Kiswahili Communication Ability: Effective Visual Impairment: No Limitations Hearing Ability: Normal Educational Paraprofessional Required: No Beliefs That Will Affect Care: None marital status: Current Living Situation: Family Current Living Situation Comment: House no steps into home, into bedroom or into bathroom current occupational status: unemployed current occupation: On disability How many Children do You have: 2 Other Information That Helps Us Care for You: No Feels Safe at Home: Yes Safety Concerns: Feels Safe At This Time Diet Comment: High protein diet, fluid restriction, diabetic diet; caffeine: No during the past year weight has: decreased > 10 lbs Assistive Devices: Oxygen - Continuous Assistive Devices Comment: has CPAP but does not use Review of Systems Review of Systems: At least ten systems reviewed and negative except as noted in the HPI. Physical Exam Physical Exam: General Appearance: vitals as above, sitting up in bed, appears chronically ill pleasant, answers questions appropriately but slow zina to speech Head: normocephalic, atraumatic Eyes: normal inspection, PERRL, conjunctivae normal, anicteric sclerae ENT: external ear and nose normal, oropharynx normal Neck: normal visual inspection, trachea midline, no thyromegaly Respiratory: normal respiratory effort, lungs clear to auscultation, no wheeze, rales, rhonchi. No accessory muscle use Cardiovascular: regular rate, rhythm, no murmur appreciated, normal peripheral pulses, no BLE edema. Vessels: no JVD Chest: normal inspection of chest. Port in place Abdomen/GI: normal bowel sounds, soft, mild TTP of LLQ. No hepatosplenomegaly Extremities/Musculoskeletal: no cyanosis or clubbing, extremities motor strength 5/5 Neurologic: PERRL, EOMI, accommodation nl, no face palsy, no dysarthria, CN's II-XI intact bilaterally and moves all extremities Psychiatric: A+Ox3, euthymic affect Skin: no rashes, normal color, warm/dry Results & Data Results & Data ([facility]) Vital Signs (Past 12 Hours) Vital Signs Temp Pulse Pulse Resp BP BP Pulse Ox 02/02/21 15:39 81 21 160/88 H 100 02/02/21 15:30 79 18 02/02/21 15:00 79 22 02/02/21 14:33 93 02/02/21 14:32 93 02/02/21 14:31 81 21 148/92 H 02/02/21 14:30 81 20 148/92 H 93 02/02/21 13:24 36.7 C 82 18 148/93 H 93 Laboratory Results Short CBC 02/02/21 02/02/21 02/02/21 Range/Units 14:25 14:25 14:25 WBC 3.61 L (4.8-10.8) K/uL RBC 4.74 (4.2-5.4) M/uL Hgb 12.2 (12.0-16.0) g/dL Hct 35.4 L (37-47) % MCV 74.7 L (80-100) fL MCH 25.7 (25-34) pg MCHC 34.5 (32-36) g/dL RDW Std Deviation 49.2 H (36.4-46.3) fL RDW Coeff of Chepe 17.8 H (11.5-14.5) % Plt Count 237 (130-400) K/uL MPV 9.3 (7.4-10.4) fL Immature Gran % (Auto) 0.0 % Neut % (Auto) 70.0 % Lymph % (Auto) 21.6 % [place] % (Auto) 7.8 % Eos % (Auto) 0.6 % Baso % (Auto) 0.0 % Neut # (Auto) 2.53 (1.4-6.5) K/uL Lymph # (Auto) 0.78 L (1.2-3.4) K/uL [place] # (Auto) 0.28 (0.11-0.59) K/uL Eos # (Auto) 0.02 (0-0.5) K/uL Baso # (Auto) 0.00 (0-0.2) K/uL Immature Gran # (Auto) 0.00 (0.00-0.02) K/uL Sodium 120 L (136-145) mmol/L Potassium 3.9 (3.5-5.1) mmol/L Chloride 86 L (98-107) mmol/L Carbon Dioxide 25 (21-32) mmol/L Anion Gap 9.0 (3-11) BUN 10 (7-18) mg/dl Creatinine 0.45 L (0.6-1.2) mg/dl Est Cr Clr Drug Dosing 116.4 ml/min Est GFR ( Amer) 124.5 ml/min Est GFR (Non-Af Amer) 107.4 ml/min BUN/Creatinine Ratio 20.9 H (10-20) Glucose 93 (70-99) mg/dl Osmolality (280-300) mOsm/kg Calcium 8.9 (8.5-10.1) mg/dl Total Bilirubin 0.3 (0.2-1) mg/dl AST 18 (15-37) U/L ALT 20 (12-78) U/L Alkaline Phosphatase 89 (45-117) U/L Total Creatine Kinase 65 (26-192) U/L Troponin I < 0.015 (0-0.045) ng/ml Total Protein 7.0 (6.4-8.2) gm/dl Albumin 3.6 (3.4-5.0) gm/dl Globulin 3.4 (2.5-4.0) gm/dl Albumin/Globulin Ratio 1.0 (0.9-2) TSH 3.490 (0.300-4.500) uIu/ml COVID-19 Eval Order Covid19 at [facility] SARS-CoV-2 (PCR) (Negative) 02/02/21 02/02/21 Range/Units 14:25 14:25 WBC (4.8-10.8) K/uL RBC (4.2-5.4) M/uL Hgb (12.0-16.0) g/dL Hct (37-47) % MCV (80-100) fL MCH (25-34) pg MCHC (32-36) g/dL RDW Std Deviation (36.4-46.3) fL RDW Coeff of Chepe (11.5-14.5) % Plt Count (130-400) K/uL MPV (7.4-10.4) fL Immature Gran % (Auto) % Neut % (Auto) % Lymph % (Auto) % [place] % (Auto) % Eos % (Auto) % Baso % (Auto) % Neut # (Auto) (1.4-6.5) K/uL Lymph # (Auto) (1.2-3.4) K/uL [place] # (Auto) (0.11-0.59) K/uL Eos # (Auto) (0-0.5) K/uL Baso # (Auto) (0-0.2) K/uL Immature Gran # (Auto) (0.00-0.02) K/uL Sodium (136-145) mmol/L Potassium (3.5-5.1) mmol/L Chloride (98-107) mmol/L Carbon Dioxide (21-32) mmol/L Anion Gap (3-11) BUN (7-18) mg/dl Creatinine (0.6-1.2) mg/dl Est Cr Clr Drug Dosing ml/min Est GFR ( Amer) ml/min Est GFR (Non-Af Amer) ml/min BUN/Creatinine Ratio (10-20) Glucose (70-99) mg/dl Osmolality 247 L (280-300) mOsm/kg Calcium (8.5-10.1) mg/dl Total Bilirubin (0.2-1) mg/dl AST (15-37) U/L ALT (12-78) U/L Alkaline Phosphatase (45-117) U/L Total Creatine Kinase (26-192) U/L Troponin I (0-0.045) ng/ml Total Protein (6.4-8.2) gm/dl Albumin (3.4-5.0) gm/dl Globulin (2.5-4.0) gm/dl Albumin/Globulin Ratio (0.9-2) TSH (0.300-4.500) uIu/ml COVID-19 Eval Order SARS-CoV-2 (PCR) NEGATIVE (Negative) BMP 02/02/21 14:25 Sodium 120 L Potassium 3.9 Chloride 86 L Carbon Dioxide 25 BUN 10 Creatinine 0.45 L Glucose 93 Calcium 8.9 Cardiac Enzymes 02/02/21 Range/Units 14:25 Total Creatine Kinase 65 (26-192) U/L Troponin I < 0.015 (0-0.045) ng/ml Liver Function 02/02/21 Range/Units 14:25 Total Bilirubin 0.3 (0.2-1) mg/dl AST 18 (15-37) U/L ALT 20 (12-78) U/L Alkaline Phosphatase 89 (45-117) U/L Albumin 3.6 (3.4-5.0) gm/dl Diagnostic Findings Chest X-Ray 02/02/21 14:18 XR chest 1V portable HISTORY: weakness COMPARISON: Chest 10/01/2020. FINDINGS: Right jugular Port-A-Cath remains at the proximal SVC. No pneumothorax. No pleural effusions. The heart is normal in size. Mild emphysema. The right lung is clear. A 1 cm nodular density within the left lung apex. This could be due to the overlapping second rib. There is also a new left infrahilar density with a few linear scarlike densities in the left midlung zone. Left basilar interstitial thickening remain stable. IMPRESSION: Left infrahilar irregular density which is new from the prior study and could be due to post radiation change. There is also possible 1 cm left upper lobe nodule. Follow-up chest CT is recommended for further evaluation of these findings. ACT 112: Negative or not required by law. Electronically signed by: Abiel Garza M.D. 02/02/2021 3:15 PM Code Status & VTE Plan VTE Prophylaxis Plan VTE Prophylaxis will be ordered: Yes Supervising Physician Co-Signing Physician Notes 60 yo F with hx of lung ca with brain mets; SIADH presented with weakness , lethargy , fatigue Na 121 continue fluid restriction 1.2 L , on Lasix and salt tab repeat BMP in 4 hrs shows improvement of Na 121 no indication for IV fluid , will worsen hyponatremia -due to dilution /fluid retention in setting of SIADH cont to follow BMP q4 hrs expecting gradual improvement of Na level Nephrology consulted , please refer to further documentation by Rhonda Lopez PA-C for discussion of other medical issues Cony Soto MD (1) Hypertension Hypertension type: essential hypertension Qualified Code(s): I10 - Essential (primary) hypertension
--- NOTE | 2021-02-02 17:07 | Electrocardiogram Report ---
Test Reason : Blood Pressure : / mmHG Vent. Rate : 080 BPM Atrial Rate : 080 BPM P-R Int : 160 ms QRS Dur : 088 ms QT Int : 392 ms P-R-T Axes : 064 079 071 degrees QTc Int : 452 ms Normal sinus rhythm Normal ECG When compared with ECG of 21-JUL-2020 14:25, No significant change was found Confirmed by Get Nick ([id number]) on 02/02/2021 5:07:29 PM Referred By: Confirmed By:Andre Nick
[2021-02-02] MEDS ORDERED: ONDANSETRON INJ 2 MG/ML 2 ML VIAL IV PRN (18:03)
[2021-02-02] MEDS ORDERED: POLYETHYLENE (MIRALAX) 17 GM PACK PO PRN (18:03)
[2021-02-02 19:09] LABS: BUN Creatinine Ratio 17.7 (10-20); Calcium 8.7 mg/dl (8.5-10.1); Creatinine Clr Calc Pharmacy 111.8 ml/min; Est GFR (African American) 124.5 ml/min; Est GFR (Non-African American) 107.4 ml/min; Magnesium 1.7 mg/dl (1.8-2.4); Potassium 3.9 mmol/L (3.5-5.1)
[2021-02-02] MEDS ORDERED: ALBUTEROL HFA 8 GM INHALER INH PRN (19:37)
[2021-02-02] MEDS ORDERED: DOCUSATE SODIUM/SENNA 50/8.6MG TAB PO PRN (19:37)
[2021-02-02] MEDS ORDERED: FLUTICASONE PROPIONATE NA SPR 16 GM BTL NAE PRN (19:37)
[2021-02-02] MEDS ORDERED: PROCHLORPERAZINE MALEATE 10 MG TAB PO PRN (19:37)
[2021-02-02] MEDS ORDERED: lisinopril 10 MG TAB PO ONE (20:00)
[2021-02-02] MEDS ORDERED: ASPIRIN 81 MG ECTAB PO SCH (21:00)
[2021-02-02] MEDS ORDERED: APIXABAN 5 MG TABLET PO SCH (21:00)
[2021-02-02] MEDS: UREA (UREA-NA) 15 GM PACK PO SCH (21:01)
[2021-02-02] MEDS: LIOTHYRONINE SODIUM 5 MCG TAB PO SCH (21:01)
[2021-02-02] MEDS: SODIUM CHLORIDE 1 GM TABLET PO SCH (21:01)
[2021-02-02] MEDS: PANTOprazole 40 MG TAB PO SCH (21:01)
[2021-02-02] MEDS: FLECAINIDE ACETATE 100 MG TABLET PO SCH (21:02)
[2021-02-02] MEDS: MONTELUKAST SODIUM 10 MG TABLET PO SCH (21:02)
--- NOTE | 2021-02-02 21:12 | CT Scan Report ---
CT head/brain wo con CLINICAL HISTORY: mentation change COMPARISON STUDY: September 02, 2020 TECHNIQUE: Axial CT of the brain is performed from the vertex to the skull base. IV contrast was not administered for this examination. A dose lowering technique was utilized adhering to the principles of ALARA. CT DOSE: 614.27 mGy.cm FINDINGS: Interval development of focal area of increased attenuation adjacent to the posterior aspect of the f jose/temporal region which was not seen during September 11, 2020 and might represent developing calcifi cations, however small focal hemorrhage cannot be completely ruled out (301/111). Evaluation is limit ed due to beam hardening artifact. Mild atrophic changes of brain parenchyma are again seen and associated with ex vacuo dilatation of v entricles. Large lacunar infarct is seen within left basal ganglia and was also seen during prior study. Extensive areas of decreased attenuation are seen within periventricular and subcortical white matter likely representing chronic small vessel ischemia. There is no acute depressed skull fractures seen. Visualized paranasal sinuses and mastoid air cells are patent and well aerated. IMPRESSION: 1. Interval development of small focal area of increased attenuation adjacent to the posterior aspec t of the falx which was not seen on on recent prior study, might represent developing calcifications, however small bleeding cannot be completely ruled out. Short-term follow-up is recommended. 2. Extensive areas of decreased attenuation within periventricular and subcortical white matter are similar to prior study representing chronic small vessel ischemia. 3. Large lacunar infarct within the left basal ganglia, was also seen during prior study. 4. Limited exam due to beam hardening artifact. ACT 112: Positive. There are findings on this exam that require communication between the performing entity and the patient following Patient Test Result Information Act ([place] Act 112) guidelines. The above report was generated using voice recognition software. It may contain grammatical, syntax o r spelling errors. Electronically signed by: Miranda Campa DO 02/02/2021 9:11 PM
--- NOTE | 2021-02-02 21:20 | Communication Note ---
Date of Service: February 02, 2021 60 yo F with hx of lung ca with brain mets; SIADH presented with weakness , lethargy , fatigue Na 121 continue fluid restriction 1.2 L , on Lasix and salt tab repeat BMP in 4 hrs shows improvement of Na 121 no indication for IV fluid , will worsen hyponatremia -due to dilution /fluid retention in setting of SIADH cont to follow BMP q4 hrs expecting gradual improvement of Na level Nephrology consulted , please refer to further documentation by hRonda Lopez PA-C for discussion of other medical issues Cony Soto MD
[2021-02-02 23:26] LABS: Appearance Urine Clear (Clear); Bacteria Urine Automated 4+ (Negative); Bilirubin Urine Negative (Negative); Blood Urine Negative (Negative); Color Urine Yellow; Glucose Urine UA Negative (Negative); Ketones Urine Negative (Negative); Leukocyte Esterase Urine 1+ (Negative); Nitrite Urine Positive (Negative); Protein Urine Negative (Negative); RBC Urine Automated 0-4 /hpf (0-4); Specific Gravity Urine 1.016 (1.000-1.030); Urobilinogen Urine Negative (Negative); WBC Urine Automated >30 /hpf (0-5); pH Urine 6.5 (4.5-7.5)
[2021-02-02 23:45] LABS: BUN Creatinine Ratio 60.2 (10-20); Calcium 9.2 mg/dl (8.5-10.1); Creatinine Clr Calc Pharmacy 94.9 ml/min; Est GFR (African American) 117.9 ml/min; Est GFR (Non-African American) 101.8 ml/min; Potassium 3.7 mmol/L (3.5-5.1)
[2021-02-03 03:52] LABS: Hematocrit (blood only) 34.1 % (37-47); Hemoglobin 11.6 g/dL (12.0-16.0); Mean Corpuscular Hemoglobin 25.2 pg (25-34); Platelet Count 209 K/uL (130-400); RDW Coefficient of Variation 17.9 % (11.5-14.5); RDW Standard Deviation 48.3 fL (36.4-46.3); Red Blood Count 4.61 M/uL (4.2-5.4); White Blood Count 3.51 K/uL (4.8-10.8)
[2021-02-03 04:09] LABS: BUN Creatinine Ratio 44.3 (10-20); Calcium 8.4 mg/dl (8.5-10.1); Creatinine Clr Calc Pharmacy 100.6 ml/min; Est GFR (African American) 120.2 ml/min; Est GFR (Non-African American) 103.7 ml/min; Potassium 3.9 mmol/L (3.5-5.1)
[2021-02-03] MEDS: LEVOTHYROXINE SODIUM 112 MCG TABLET PO SCH (06:09)
[2021-02-03] MEDS: UMECLIDINIUM BROMIDE 62.5MCG/BLISTER 7 PUFFS/INHALER INH SCH (08:29)
[2021-02-03] MEDS: FLUTICASONE/VILANTEROL 200/25MCG 14 PUFFS/INHALER INH SCH (08:29)
[2021-02-03] MEDS: lisinopril 10 MG TAB PO SCH ×2 (08:30→21:33)
[2021-02-03] MEDS: MULTIVITAMIN TAB PO SCH (08:30)
[2021-02-03] MEDS: VERAPAMIL HCL 240 MG TABCR PO SCH (08:30)
[2021-02-03] MEDS: CALCIUM CARBONATE 1250MG TAB PO SCH (08:30)
[2021-02-03] MEDS: buPROPion SR 100 MG TABCR PO SCH (08:30)
[2021-02-03] MEDS: PRAVASTATIN SOD 40 MG TAB PO SCH (08:30)
[2021-02-03] MEDS: LIOTHYRONINE SODIUM 5 MCG TAB PO SCH ×2 (08:30→21:33)
[2021-02-03] MEDS: MAGNESIUM OXIDE 400 MG TAB PO SCH (08:30)
[2021-02-03] MEDS: PANTOprazole 40 MG TAB PO SCH ×2 (08:30→21:34)
[2021-02-03] MEDS: THIOTHIXENE 5 MG CAP PO SCH (08:30)
[2021-02-03] MEDS: FLECAINIDE ACETATE 100 MG TABLET PO SCH ×2 (08:31→21:34)
[2021-02-03] MEDS: UREA (UREA-NA) 15 GM PACK PO SCH ×4 (08:31→21:34)
[2021-02-03] MEDS: SODIUM CHLORIDE 1 GM TABLET PO SCH ×2 (08:31→21:34)
[2021-02-03] MEDS ORDERED: FUROSEMIDE 20 MG TAB PO SCH (09:00)
[2021-02-03] MEDS: SODIUM CHLORIDE 0.9% 1000ML 1,000 ML IV SCH (10:44)
[2021-02-03] MEDS: FUROSEMIDE 20 MG in SYRINGE 0 ML IV SCH ×2 (10:45→21:33)
--- NOTE | 2021-02-03 12:33 | Consultation Report ---
NEPHROLOGY CONSULTATION NOTE DATE OF CONSULTATION: 02/03/2021. REASON FOR CONSULTATION: Hyponatremia. HISTORY OF PRESENT ILLNESS: The patient is a 60-year-old female who has known diagnosis of small abril l lung cancer, undergoing chemotherapy. She also has associated hyponatremia which has been worked u p in detail in the past and was secondary to SIADH. She has had hyponatremia of varying severity for the last few months. She had routine blood work done yesterday through oncology and because of the low sodium, she was transferred to the Emergency Department. Serum sodium is around 120, but not sidney nging much. She really cannot tell about the fluid intake, she has given her psychological status as well as weakness. Renal function is normal. At home, she is supposed to be on salt tablet, Lasix an d fluid restriction. She claims she is doing all of that even though she was prescribed urea tablet in the past. She is not really taking it at this time because of insurance/cost issue. Patient's bl ood pressure was slightly high at the time of admission, serum osmolarity was low, urine osmolarity y was 491. Urine sodium was 60. She was fairly euvolemic. PAST MEDICAL AND SURGICAL HISTORY: Includes hyponatremia secondary to SIADH, small cell carcinoma of the lung recently diagnosed undergoing chemotherapy, COPD, chronic respiratory failure with hypoxia, history of paroxysmal AFib, hypertension, chronic cerebral ischemia, hypothyroidism, depression, obs tructive sleep apnea on CPAP, history of CVA, seizure affective disorder, posttraumatic stress disord er. ALLERGY: List is very long and was reviewed in detail and is as per the reconciliation list. HOME MEDICATIONS: List was also reviewed in detail. I want to clarify that even the urea is listed in the medicine list. She was not taking it. Lasix 20 twice daily, sodium chloride 1000 twice daily. PAST SURGICAL HISTORY: Bunion surgery, colonoscopy, coronary angioplasty, tubal ligation, wisdom brenton th extraction. FAMILY HISTORY: Negative for renal disease or dialysis. SOCIAL HISTORY: Former smoker for many years. No alcohol. She is . She is unemployed and is on disability. She uses oxygen continuous at home. REVIEW OF SYSTEMS: Unable to obtain as the patient really does not seem to be in good condition to a nswer the question. PHYSICAL EXAMINATION: GENERAL: A middle-aged white female, who appears older than her stated age. She is awake, alert, ca nnot really comment about the orientation secondary to lack of patient effort. CHEST: Bilateral decreased breath sounds, prolonged expiration occasional crackles. CARDIOVASCULAR: S1, S2 regular. ABDOMEN: Soft, nontender. EXTREMITIES: Shows no edema. NEUROLOGIC: She is awake and alert, answering normal questions, normal sounding speech, but slow. SKIN: Appears without rashes. LABORATORY TEST: Urine osmolality is inappropriately high at 491. Serum osmolarity is low, serum sod ium is 120 range for the last 3 readings, most recent one is 122 this morning, BUN 22, creatinine 0.5 , calcium 8.4, potassium 3.9, hemoglobin 11.6. Chest x-ray did not show any evidence of CHF. There is mention of some lung mass which is not totally new. ASSESSMENT AND PLAN: A 60-year-old female with known chronic hyponatremia secondary to syndrome of i nappropriate antidiuretic hormone in the setting of small cell cancer of lung for which she is underg oing chemotherapy. Hyponatremia. There is no question about the diagnosis of syndrome of inappropriate antidiuretic hor antolin in the setting of small cell lung cancer. I am not quite certain how closely, she follows with the fluid restriction at home. During her previous admission, we managed her essentially with fluid restriction and some salt tablets and Lasix. We will do the same this time. RECOMMENDATIONS: For today; 1. Normal saline 1000 mL at 80 mL per hour. 2. Lasix 20 mg IV twice daily. 3. Urea 15 grams twice daily. 4. Salt tablet 1 g twice daily. 5. BMP every 8 hours. 6. Our goal for sodium will be around 127 by tomorrow. 7. Most likely she will continue to have chronic mild hyponatremia given underlying SIADH in the set ting of small cell lung cancer. Job ID: [id number]
--- NOTE | 2021-02-03 14:32 | CT Scan Report ---
HEAD CT NONCONTRAST CT DOSE: 884.08 mGy.cm HISTORY: questionable small bleeding ? on prior ct scan TECHNIQUE: Multiaxial CT images of the head were performed without the use of intravenous contrast. A utomated exposure control was utilized for this study. A dose lowering technique was utilized adheri ng to the principles of ALARA. Comparison: Head CT 02/02/2021 and 09/02/2020. Findings: The paranasal sinuses and mastoid air cells are clear. Old left basal ganglia infarct remai ns unchanged. Extensive white matter hypodensity is also unchanged and favors advanced microvascular ischemic change. No midline shift identified. Redemonstration of the 4 mm hyperdense focus within the cortex of the right high convexity. This may contain a small focus of calcification. However, a smal l intraparenchymal hematoma cannot be excluded. [address] follow-up recommended to ensure stability. Impression: Redemonstration of the 4 mm hyperdense focus within the cortex of the right high convexity. This may contain a small focus of calcification. However, a small intraparenchymal hematoma cannot be excluded . [address] follow-up recommended to ensure stability. ACT 112: Negative or not required by law. Electronically signed by: Abiel Garza M.D. 02/03/2021 2:30 PM
--- NOTE | 2021-02-03 15:12 | Communication Note ---
Date of Service: February 03, 2021 CT head noncontrast this morning Impression: Redemonstration of the 4 mm hyperdense focus within the cortex of the right high convexity. This may contain a small focus of calcification. However, a small intraparenchymal hematoma cannot be excluded. [address] follow-up recommended to ensure stability. Continue to hold aspirin and Eliquis Repeat CT head noncontrast ordered for morning Patient cardiac rhythm has been stable, no tachyarrhythmia noted, cardiac monitoring discontinued Cony Soto MD
[2021-02-03 16:30] LABS: BUN Creatinine Ratio 56.2 (10-20); Calcium 8.8 mg/dl (8.5-10.1); Creatinine Clr Calc Pharmacy 82.4 ml/min; Est GFR (African American) 112.6 ml/min; Est GFR (Non-African American) 97.2 ml/min; Potassium 3.7 mmol/L (3.5-5.1)
--- NOTE | 2021-02-03 17:00 | Hospitalist Progress Note ---
Date of Service February 03, 2021 Assessment & Plan (1) Hyponatremia: (2) SIADH (syndrome of inappropriate ADH production): (3) Small cell carcinoma of lung: (4) Chronic respiratory failure with hypoxia: (5) COPD (chronic obstructive pulmonary disease): (6) Paroxysmal A-fib: (7) Hypertension: (8) Chronic cerebral ischemia: (9) Hypothyroidism: (10) Depression: (11) RAKESH on CPAP: This is a 60yo F with a PMH of small cell lung ca s/p 4 cycles of carboplatin and etoposide with radiation completed 02/21/2020 as well as prophylactic cranial radiation, SIADH, PAF anticoagulated on Eliquis and rhythm controlled on flecainide, chronic respiratory failure secondary to emphysema on chronic 2 L of O2, RAKESH on CPAP, history of CVA without residual deficit, CAD, hypothyroidism, prediabetes, depression, schizoaffective disorder, PTSD and other medical problems listed below who was sent over by oncologist for laboratory findings of hyponatremia. Hyponatremia History of chronic hyponatremia, known hx of SIADH - patient unsure whether or note she has been compliant with fluid restriction of 1.2-1.5L -believes she has been drinking less but does not count Endorses "groggy" feeling, generalized weakness fluid restrict at 1.2 L, continue sodium tablets, urea and lasix per home doses nephrology consulted Small cell carcinoma of lung S/p 4 cycles of carboplatin and etoposide with radiation completed 02/21/2020 as well as prophylactic cranial radiation Recent PET scan from December 2020 shows new metabolically active hepatic metastasis and new lung nodules and metabolically active mediastinal lymphadenopathy. now considered incurable disease Follows with Dr. Nolasco Chronic respiratory failure with hypoxia COPD In setting of COPD Continue O2 supplementation 2L NC, home inhalers Paroxysmal Atrial fibrillation Rate and rhythm controlled on flecainide Anticoagulated with Eliquis Hypertension Unsure whether or not she took home BP medications today Continue lisinopril and Verapmil History of CVA Continue asa, statin, Eliquis No current deficits Hypothyroidism TSH wnl Continue levothyroxine, Cytomel, thiothixene Depression Continue bupropion Prediabetes A1c 5.7 in Sep 2020 Holding metformin while inpatient BSG ACHS, add SSI if indicated RAKESH bipap 02/20 @ HS DVT Ppx: Eliquis Code status: FULL PCP: [facility] Admission and Anticipated Discharge Date Admission Date: February 02, 2021 Physical Exam Physical Exam: Physical exam: General: No acute distress, alert awake oriented x3 HEENT: PERRLA, EOMI, Heart: Regular S1-S2, no carotid bruit, no JVD, no lower extremity edema Lungs: Clear to auscultate, no wheeze or rales Abdomen: Soft nontender, no organomegaly Extremity: No cyanosis, no deformity, normal strength 5 out of 5 with upper and lower Neuro: No focal neurological deficit normal speech, normal visual field, Motor strength : normal both upper and lower extremity, sensation intact Psych: Alert awake oriented x3, normal affect Results & Data Results & Data ([facility]) Vital Signs (Past 12 Hours) Vital Signs Temp Pulse Pulse Pulse Resp BP Pulse Ox 02/03/21 16:20 90 02/03/21 15:37 36.3 C L 84 16 116/67 93 02/03/21 11:37 36.8 C 86 20 115/71 95 02/03/21 07:48 36.3 C L 80 20 147/81 H 98 02/03/21 07:00 79 (1) Hypertension Hypertension type: essential hypertension Qualified Code(s): I10 - Essential (primary) hypertension
[2021-02-03] MEDS: MONTELUKAST SODIUM 10 MG TABLET PO SCH (21:33)
[2021-02-04] MEDS: SODIUM CHLORIDE 0.9% 1000ML 1,000 ML IV SCH ×2 (01:01→13:41)
[2021-02-04 04:23] LABS: Hematocrit (blood only) 34.6 % (37-47); Hemoglobin 11.7 g/dL (12.0-16.0); Mean Corpuscular Hemoglobin 25.4 pg (25-34); Mean Corpuscular Hgb Conc 33.8 g/dL (32-36); Mean Corpuscular Volume 75.2 fL (80-100); Mean Platelet Volume 8.8 fL (7.4-10.4); Platelet Count 192 K/uL (130-400); RDW Standard Deviation 49.8 fL (36.4-46.3); White Blood Count 3.45 K/uL (4.8-10.8)
[2021-02-04 04:38] LABS: BUN Creatinine Ratio 61.1 (10-20); Calcium 8.6 mg/dl (8.5-10.1); Creatinine Clr Calc Pharmacy 85.2 ml/min; Est GFR (African American) 113.9 ml/min; Est GFR (Non-African American) 98.2 ml/min; Magnesium 1.8 mg/dl (1.8-2.4); Potassium 3.6 mmol/L (3.5-5.1)
[2021-02-04] MEDS: LEVOTHYROXINE SODIUM 112 MCG TABLET PO SCH (05:52)
--- NOTE | 2021-02-04 09:11 | CT Scan Report ---
HEAD CT NONCONTRAST CT DOSE: 823.94 mGycm HISTORY: Abnormal head CT. Follow-up. eval for intracranial bleed TECHNIQUE: Multiaxial CT images of the head were performed without the use of intravenous contrast. A utomated exposure control was utilized for this study. A dose lowering technique was utilized adheri ng to the principles of ALARA. Comparison: Head CT 02/03/2021. Findings: The paranasal sinuses and mastoid air cells are clear. The calvarium and skull base are int act. Stable punctate 4 mm hyperdense focus within the right high convexity. Stable chronic periventri cular white matter hypodensity and an old left basal ganglia lacunar infarct are identified. No acute infarcts or midline shift. The ventricles and sulci are stable. Impression: No change in the 4 mm hyperdense focus within the right high convexity. This could represent calcific ation or a small hyperdense lesion rather than intraparenchymal hemorrhage given the stability. [facility] er, an additional [address] or MRI follow-up recommended for confirmation. ACT 112: Negative or not required by law. Electronically signed by: Abiel Garza M.D. 02/04/2021 9:10 AM
--- NOTE | 2021-02-04 09:26 | Nephrology Progress Note ---
Date of Service February 04, 2021 Assessment & Plan Admission and Anticipated Discharge Date Admission Date: February 02, 2021 Subjective No new issues. Making urine. Na rising slowly. PHYSICAL EXAMINATION: GENERAL: A middle-aged white female, who appears older than her stated age. She is awake, alert, cannot really comment about the orientation secondary to lack of patient effort. CHEST: Bilateral decreased breath sounds, prolonged expiration occasional crackles. CARDIOVASCULAR: S1, S2 regular. ABDOMEN: Soft, nontender. EXTREMITIES: Shows no edema. NEUROLOGIC: She is awake and alert, answering normal questions, normal sounding speech, but slow. SKIN: Appears without rashes. LABORATORY TEST: Urine osmolality is inappropriately high at 491. Serum osmolarity is low, serum sodium is 120 range for the last 3 readings, most recent one is 122 this morning, BUN 22, creatinine 0.5, calcium 8.4, potassium 3.9, hemoglobin 11.6. Chest x-ray did not show any evidence of CHF. There is mention of some lung mass which is not totally new. ASSESSMENT AND PLAN: A 60-year-old female with known chronic hyponatremia secondary to syndrome of inappropriate antidiuretic hormone in the setting of small cell cancer of lung for which she is undergoing chemotherapy. Hyponatremia. There is no question about the diagnosis of syndrome of inappropriate antidiuretic hormone in the setting of small cell lung cancer. I am not quite certain how closely, she follows with the fluid restriction at home. During her previous admission, we managed her essentially with fluid restriction and some salt tablets and Lasix. We will do the same this time. RECOMMENDATIONS: For today; 1. Continue Normal saline 1000 mL at 80 mL per hour. 2. Lasix 20 mg IV twice daily. 3. Urea 15 grams twice daily. 4. Salt tablet 1 g twice daily. 5. BMP every 12 hours. 6. So continue same as yesterday. 7. Most likely she will continue to have chronic mild hyponatremia given underlying SIADH in the setting of small cell lung cancer. Results & Data ([facility]) Vital Signs (Past 12 Hours) Vital Signs Temp Pulse Resp BP Pulse Ox 02/04/21 07:52 36.5 C 68 19 118/79 96 02/03/21 22:24 36.3 C L 68 16 106/68 94
[2021-02-04] MEDS: FLUTICASONE/VILANTEROL 200/25MCG 14 PUFFS/INHALER INH SCH (10:04)
[2021-02-04] MEDS: UMECLIDINIUM BROMIDE 62.5MCG/BLISTER 7 PUFFS/INHALER INH SCH (10:05)
[2021-02-04] MEDS: PANTOprazole 40 MG TAB PO SCH ×2 (10:05→22:00)
[2021-02-04] MEDS: SODIUM CHLORIDE 1 GM TABLET PO SCH ×2 (10:05→22:00)
[2021-02-04] MEDS: VERAPAMIL HCL 240 MG TABCR PO SCH (10:05)
[2021-02-04] MEDS: MULTIVITAMIN TAB PO SCH (10:06)
[2021-02-04] MEDS: MAGNESIUM OXIDE 400 MG TAB PO SCH (10:06)
[2021-02-04] MEDS: CALCIUM CARBONATE 1250MG TAB PO SCH (10:06)
[2021-02-04] MEDS: lisinopril 10 MG TAB PO SCH ×2 (10:06→22:04)
[2021-02-04] MEDS: buPROPion SR 100 MG TABCR PO SCH (10:06)
[2021-02-04] MEDS: FLECAINIDE ACETATE 100 MG TABLET PO SCH ×2 (10:06→22:00)
[2021-02-04] MEDS: LIOTHYRONINE SODIUM 5 MCG TAB PO SCH ×2 (10:06→22:00)
[2021-02-04] MEDS: THIOTHIXENE 5 MG CAP PO SCH (10:06)
[2021-02-04] MEDS: PRAVASTATIN SOD 40 MG TAB PO SCH (10:06)
[2021-02-04] MEDS: FUROSEMIDE 20 MG in SYRINGE 0 ML IV SCH ×2 (10:10→22:00)
[2021-02-04] MEDS: UREA (UREA-NA) 15 GM PACK PO SCH ×3 (10:15→22:00)
[2021-02-04 16:48] LABS: BUN Creatinine Ratio 70.9 (10-20); Calcium 8.7 mg/dl (8.5-10.1); Creatinine Clr Calc Pharmacy 77.3 ml/min; Est GFR (African American) 110.3 ml/min; Est GFR (Non-African American) 95.2 ml/min; Potassium 3.7 mmol/L (3.5-5.1)
--- NOTE | 2021-02-04 19:00 | Hospitalist Progress Note ---
Date of Service February 04, 2021 Assessment & Plan (1) Hyponatremia: (2) SIADH (syndrome of inappropriate ADH production): (3) Small cell carcinoma of lung: (4) Chronic respiratory failure with hypoxia: (5) COPD (chronic obstructive pulmonary disease): (6) Paroxysmal A-fib: (7) Hypertension: (8) Chronic cerebral ischemia: (9) Hypothyroidism: (10) Depression: (11) RAKESH on CPAP: This is a 60yo F with a PMH of small cell lung ca s/p 4 cycles of carboplatin and etoposide with radiation completed 02/21/2020 as well as prophylactic cranial radiation, SIADH, PAF anticoagulated on Eliquis and rhythm controlled on flecainide, chronic respiratory failure secondary to emphysema on chronic 2 L of O2, RAKESH on CPAP, history of CVA without residual deficit, CAD, hypothyroidism, prediabetes, depression, schizoaffective disorder, PTSD and other medical problems listed below who was sent over by oncologist for laboratory findings of hyponatremia. Hyponatremia History of chronic hyponatremia, known hx of SIADH - patient unsure whether or note she has been compliant with fluid restriction of 1.2-1.5L -believes she has been drinking less but does not count Endorses "groggy" feeling, generalized weakness CT head wo contrast ordered Unsure if compliant with Urea Sodium of 120 on admission last Na was 134 on 12/26/20 Na 128 today Serum osm low at 247 Nephrology on board Recommended to continue fluid restrict at 1.2 L, continue sodium tablets, urea and lasix per home doses Continue monitor BMP Small cell carcinoma of lung S/p 4 cycles of carboplatin and etoposide with radiation completed 02/21/2020 as well as prophylactic cranial radiation Recent PET scan from December 2020 shows new metabolically active hepatic metastasis and new lung nodules and metabolically active mediastinal lymphadenopathy. now considered incurable disease Plan to start palliative chemotherapy today with atezolizumab but sent to ER for admission for hyponatremia Follows with Dr. Nolasco Chronic respiratory failure with hypoxia COPD In setting of COPD Continue O2 supplementation 2L NC, home inhalers Paroxysmal Atrial fibrillation Rate and rhythm controlled on flecainide Anticoagulated with Eliquis that has been on hold Abnormal CT head finding Pt said that she had a fall 2 weeks ago when she hit her head No focal neuro deficit currently CT head on admission showed interval development of small focal area of increased attenuation adjacent to the posterior aspect of the falx which was not seen on on recent prior study, might represent developing calcifications, however small bleeding cannot be completely ruled out. Short-term follow-up is recommended. Repeat CT head on 02/04 showed no change in the 4 mm hyperdense focus within the right high convexity. This could represent calcification or a small hyperdense lesion rather than intraparenchymal hemorrhage given the stability. Continue to hold Eliquis for now Will get an MRI of the head Hypertension Unsure whether or not she took home BP medications today Continue lisinopril and Verapmil History of CVA Continue asa, statin No current deficits Hypothyroidism TSH wnl Continue levothyroxine, Cytomel, thiothixene Depression Continue bupropion Prediabetes A1c 5.7 in Sep 2020 Holding metformin while inpatient BSG ACHS, add SSI if indicated RAKESH bipap 02/20 @ HS DVT Ppx: Eliquis on hold Will add SCD Code status: FULL PCP: [facility] Admission and Anticipated Discharge Date Admission Date: February 02, 2021 Subjective Pt was seen and examined Sitting in chair with no distress Pt said that she feels fine Denies any chest pain, palpitation, dizziness and SOB Review of Systems Review of Systems: All systems reviewed & are unremarkable except as noted in Subjective Physical Exam Physical Exam: General- No acute distress Head- atraumatic Eyes- PERRL, EOMI, ENT- oropharynx clear Neck- supple, no JVD Lungs- clear to auscultation Heart- regular rhythm; no murmur Abdomen- normal bowel sounds, soft, nontender Extremities- no calf tenderness Neuro- alert, oriented x 3; PERRL, EOMI; no facial palsy; no dysarthria Skin- warm & dry Results & Data Results & Data ([facility]) Vital Signs (Past 12 Hours) Vital Signs Temp Pulse Resp BP Pulse Ox 02/04/21 15:55 36.5 C 67 16 89/56 L 94 02/04/21 07:52 36.5 C 68 19 118/79 96 (1) Hypertension Hypertension type: essential hypertension Qualified Code(s): I10 - Essential (primary) hypertension
[2021-02-04] MEDS: MONTELUKAST SODIUM 10 MG TABLET PO SCH (22:00)
[2021-02-05] MEDS: SODIUM CHLORIDE 0.9% 1000ML 1,000 ML IV SCH (01:12)
[2021-02-05 04:52] LABS: BUN Creatinine Ratio 78.6 (10-20); Creatinine Clr Calc Pharmacy 104.7 ml/min; Est GFR (African American) 121.8 ml/min; Est GFR (Non-African American) 105.1 ml/min; Potassium 3.5 mmol/L (3.5-5.1)
[2021-02-05] MEDS: LEVOTHYROXINE SODIUM 112 MCG TABLET PO SCH (05:51)
[2021-02-05] MEDS: FLUTICASONE/VILANTEROL 200/25MCG 14 PUFFS/INHALER INH SCH (09:08)
[2021-02-05] MEDS: UREA (UREA-NA) 15 GM PACK PO SCH ×2 (09:09→14:17)
[2021-02-05] MEDS: UMECLIDINIUM BROMIDE 62.5MCG/BLISTER 7 PUFFS/INHALER INH SCH (09:09)
[2021-02-05] MEDS: CALCIUM CARBONATE 1250MG TAB PO SCH (09:10)
[2021-02-05] MEDS: buPROPion SR 100 MG TABCR PO SCH (09:10)
[2021-02-05] MEDS: FLECAINIDE ACETATE 100 MG TABLET PO SCH (09:10)
[2021-02-05] MEDS: SODIUM CHLORIDE 1 GM TABLET PO SCH (09:10)
[2021-02-05] MEDS: PRAVASTATIN SOD 40 MG TAB PO SCH (09:10)
[2021-02-05] MEDS: MULTIVITAMIN TAB PO SCH (09:10)
[2021-02-05] MEDS: LIOTHYRONINE SODIUM 5 MCG TAB PO SCH (09:10)
[2021-02-05] MEDS: lisinopril 10 MG TAB PO SCH (09:10)
[2021-02-05] MEDS: PANTOprazole 40 MG TAB PO SCH (09:10)
[2021-02-05] MEDS: VERAPAMIL HCL 240 MG TABCR PO SCH (09:10)
[2021-02-05] MEDS: MAGNESIUM OXIDE 400 MG TAB PO SCH (09:10)
[2021-02-05] MEDS: FUROSEMIDE 20 MG in SYRINGE 0 ML IV SCH (09:13)
[2021-02-05] MEDS: HEPARIN 100 UNIT/ML 5ML FLUSH FLUSH PRN ×2 (10:16→16:55)
--- NOTE | 2021-02-05 11:39 | Magnetic Resonance Report ---
Brain MRI WITHOUT CONTRAST HISTORY: Normal head CT. F/U 4 mm hyperdense focus TECHNIQUE: Multiplanar multisequence MRI of the brain was performed without the use of contrast. COMPARISON STUDY: Head CT 02/04/2021. Brain MRI 07/21/2020. FINDINGS: There is again noted a subtle nodular focus within the right parietal lobe near the high co nvexity best seen on axial T2 image 19 and coronal FLAIR sequence image 19. There is minimal surround ing edema. This is hypointense on both T2 and T1 sequences. There appears to be a small amount of res tricted diffusion at this location. This remains nonspecific but is concerning for a small lesion and could be metastatic. Contrast-enhanced sequences of the brain are recommended for follow-up. A small focus of hemorrhage could also a similar appearance. Extensive white matter T2 hyperintensity seen t hroughout the supratentorial brain has progressed in the interval. There is an old left basal ganglia infarct, unchanged. The paranasal sinuses and mastoid air cells are clear. The nature vascular flow voids at the skull base are well-maintained. No midline shift or acute infarct. IMPRESSION: 1. Redemonstration of a subtle nodular focus within the right parietal lobe near the high convexity w ith minimal surrounding edema. This demonstrates hypointense signal with possible restricted diffusio n. This remains nonspecific but is concerning for a small lesion could represent a metastatic focus. Small focus of intracranial hemorrhage is considered less likely but not entirely excluded. Therefore , dedicated contrast-enhanced MR of the brain is recommended for further evaluation. 2. No acute infarct. 3. Progressive T2 signal abnormality seen throughout the white matter. This could be due to posttreat ment changes or a nonspecific leukoencephalopathy. ACT 112: Negative or not required by law. Electronically signed by: Abiel Garza M.D. 02/05/2021 11:38 AM
--- NOTE | 2021-02-05 11:47 | Nephrology Progress Note ---
Date of Service February 05, 2021 Assessment & Plan Admission and Anticipated Discharge Date Admission Date: February 02, 2021 Subjective No new issues. Making urine. Na rising slowly and now normal. PHYSICAL EXAMINATION: GENERAL: A middle-aged white female, who appears older than her stated age. She is awake, alert, cannot really comment about the orientation secondary to lack of patient effort. CHEST: Bilateral decreased breath sounds, prolonged expiration occasional crackles. CARDIOVASCULAR: S1, S2 regular. ABDOMEN: Soft, nontender. EXTREMITIES: Shows no edema. NEUROLOGIC: She is awake and alert, answering normal questions, normal sounding speech, but slow. SKIN: Appears without rashes. LABORATORY TEST: Urine osmolality is inappropriately high at 491. There is mention of some lung mass which is not totally new. ASSESSMENT AND PLAN: A 60-year-old female with known chronic hyponatremia secondary to syndrome of inappropriate antidiuretic hormone in the setting of small cell cancer of lung for which she is undergoing chemotherapy. Hyponatremia. There is no question about the diagnosis of syndrome of inappropriate antidiuretic hormone in the setting of small cell lung cancer. I am not quite certain how closely, she follows with the fluid restriction at home. During her previous admission, we managed her essentially with fluid restriction and some salt tablets and Lasix. We will do the same this time. RECOMMENDATIONS: For today; 1. Stop Normal saline 2. Lasix 20 mg po twice daily. 3. Urea 15 grams twice daily--continue if we can get the Rx covered 4. Salt tablet 1 g twice daily. 5. BMP on tuesday--post discharge 6. Most likely she will continue to have chronic mild hyponatremia given underlying SIADH in the setting of small cell lung cancer. 7 Can be discharged today Results & Data ([facility]) Vital Signs (Past 12 Hours) Vital Signs Temp Pulse Resp BP Pulse Ox 02/05/21 07:40 36.4 C L 73 16 132/76 96
[2021-02-05 12:01] VITALS: O2SAT 96
[2021-02-05 15:38] VITALS: TEMP 97.7
--- NOTE | 2021-02-05 16:21 | Hospitalist Progress Note ---
Date of Service February 05, 2021 Assessment & Plan (1) Hyponatremia: (2) SIADH (syndrome of inappropriate ADH production): (3) Small cell carcinoma of lung: (4) Chronic respiratory failure with hypoxia: (5) COPD (chronic obstructive pulmonary disease): (6) Paroxysmal A-fib: (7) Hypertension: (8) Chronic cerebral ischemia: (9) Hypothyroidism: (10) Depression: (11) RAKESH on CPAP: This is a 60yo F with a PMH of small cell lung ca s/p 4 cycles of carboplatin and etoposide with radiation completed 02/21/2020 as well as prophylactic cranial radiation, SIADH, PAF anticoagulated on Eliquis and rhythm controlled on flecainide, chronic respiratory failure secondary to emphysema on chronic 2 L of O2, RAKESH on CPAP, history of CVA without residual deficit, CAD, hypothyroidism, prediabetes, depression, schizoaffective disorder, PTSD and other medical problems listed below who was sent over by oncologist for laboratory findings of hyponatremia. Hyponatremia History of chronic hyponatremia, known hx of SIADH - patient unsure whether or note she has been compliant with fluid restriction of 1.2-1.5L -believes she has been drinking less but does not count Endorses "groggy" feeling, generalized weakness CT head wo contrast ordered Unsure if compliant with Urea Sodium of 120 on admission last Na was 134 on 12/26/20 Na 133 today Serum osm low at 247 Nephrology on board Case discussed with Nephrology that recommended to continue Lasix 20 mg po twice daily, Urea 15 grams twice daily--continue if we can get the Rx covered, Salt tablet 1 g twice daily. Will check BMP on Tuesday Ok from nephrology standpoint to discharge home Small cell carcinoma of lung S/p 4 cycles of carboplatin and etoposide with radiation completed 02/21/2020 as well as prophylactic cranial radiation Recent PET scan from December 2020 shows new metabolically active hepatic metastasis and new lung nodules and metabolically active mediastinal lymphadenopathy. now considered incurable disease Plan to start palliative chemotherapy today with atezolizumab but sent to ER for admission for hyponatremia Follows with Dr. Nolasco Chronic respiratory failure with hypoxia COPD In setting of COPD Continue O2 supplementation 2L NC, home inhalers Paroxysmal Atrial fibrillation Rate and rhythm controlled on flecainide Anticoagulated with Eliquis was on hold, will resume Abnormal CT head finding Pt said that she had a fall 2 weeks ago when she hit her head No focal neuro deficit currently CT head on admission showed interval development of small focal area of increased attenuation adjacent to the posterior aspect of the falx which was not seen on on recent prior study, might represent developing calcifications, however small bleeding cannot be completely ruled out. Short-term follow-up is recommended. Repeat CT head on 02/04 showed no change in the 4 mm hyperdense focus within the right high convexity. This could represent calcification or a small hyperdense lesion rather than intraparenchymal hemorrhage given the stability. MRI on 02/05 showed redemonstration of a subtle nodular focus within the right parietal lobe near the high convexity with minimal surrounding edema. This demonstrates hypointense signal with possible restricted diffusion. This remains nonspecific but is concerning for a small lesion could represent a metastatic focus. Small focus of intracranial hemorrhage is considered less likely but not entirely excluded. No acute infarct. Imaging finding discussed with patient in details Discussed MRI finding with neurology Dr. Ny that recommended to repeat the MRI in 1 month. No additional testing needed for now Ok from neurology standpoint to resume the Eliquis (No official consult place for neurology ) Will need to repeat MRI in 1 month Hypertension Unsure whether or not she took home BP medications today Continue lisinopril and Verapmil Continue monitor BP History of CVA Continue asa, statin No current deficits Hypothyroidism TSH wnl Continue levothyroxine, Cytomel, thiothixene Depression Continue bupropion Prediabetes A1c 5.7 in Sep 2020 Holding metformin while inpatient BSG ACHS, add SSI if indicated RAKESH bipap 7/2 @ HS DVT Ppx: Eliquis on hold due to abnormal CT head finding Will add SCD Code status: FULL PCP: Asuncion Disposition Will discharge home today Admission and Anticipated Discharge Date Admission Date: February 02, 2021 Subjective Pt was seen and examined for follow up of hyponatremia Lying in bed with no distress comfortable Pt said that she feels ok She denies any new complaints Denies any chest pain, palpitation, dizziness Review of Systems Review of Systems: All systems reviewed & are unremarkable except as noted in Subjective Physical Exam Physical Exam: General- No acute distress Head- atraumatic Eyes- PERRL, EOMI, ENT- oropharynx clear Neck- supple, no JVD Lungs- clear to auscultation Heart- regular rhythm; no murmur Abdomen- normal bowel sounds, soft, nontender Extremities- no calf tenderness Neuro- alert, oriented x 3; PERRL, EOMI; no facial palsy; no dysarthria Skin- warm & dry Results & Data Results & Data ([facility]) Vital Signs (Past 12 Hours) Vital Signs Temp Pulse Resp BP BP Pulse Ox 02/05/21 15:43 73 98/63 L 02/05/21 15:37 36.5 C 76 16 95/63 L 96 02/05/21 07:00 36.4 C L 73 16 132/76 96 (1) Hypertension Hypertension type: essential hypertension Qualified Code(s): I10 - Essential (primary) hypertension
[2021-02-05 16:46] VITALS: BP 132/76; PULSE 86
--- NOTE | 2021-02-05 16:48 | Hospitalist Progress Note ---
Date of Service February 05, 2021 Assessment & Plan (1) Hyponatremia: (2) SIADH (syndrome of inappropriate ADH production): (3) Small cell carcinoma of lung: (4) Chronic respiratory failure with hypoxia: (5) COPD (chronic obstructive pulmonary disease): (6) Paroxysmal A-fib: (7) Hypertension: (8) Chronic cerebral ischemia: (9) Hypothyroidism: (10) Depression: (11) RAKESH on CPAP: This is a 60yo F with a PMH of small cell lung ca s/p 4 cycles of carboplatin and etoposide with radiation completed 02/21/2020 as well as prophylactic cranial radiation, SIADH, PAF anticoagulated on Eliquis and rhythm controlled on flecainide, chronic respiratory failure secondary to emphysema on chronic 2 L of O2, RAKESH on CPAP, history of CVA without residual deficit, CAD, hypothyroidism, prediabetes, depression, schizoaffective disorder, PTSD and other medical problems listed below who was sent over by oncologist for laboratory findings of hyponatremia. Hyponatremia History of chronic hyponatremia, known hx of SIADH - patient unsure whether or note she has been compliant with fluid restriction of 1.2-1.5L -believes she has been drinking less but does not count Endorses "groggy" feeling, generalized weakness CT head wo contrast ordered Unsure if compliant with Urea Sodium of 120 on admission last Na was 134 on 12/26/20 Na 133 today Serum osm low at 247 Nephrology on board Case discussed with Nephrology that recommended to continue Lasix 20 mg po twice daily, Urea 15 grams twice daily--continue if we can get the Rx covered, Salt tablet 1 g twice daily. Will check BMP on Tuesday Ok from nephrology standpoint to discharge home Small cell carcinoma of lung S/p 4 cycles of carboplatin and etoposide with radiation completed 02/21/2020 as well as prophylactic cranial radiation Recent PET scan from December 2020 shows new metabolically active hepatic metastasis and new lung nodules and metabolically active mediastinal lymphadenopathy. now considered incurable disease Plan to start palliative chemotherapy today with atezolizumab but sent to ER for admission for hyponatremia Follows with Dr. Nolasco Chronic respiratory failure with hypoxia COPD In setting of COPD Continue O2 supplementation 2L NC, home inhalers Paroxysmal Atrial fibrillation Rate and rhythm controlled on flecainide Anticoagulated with Eliquis was on hold, will resume Abnormal CT head finding Pt said that she had a fall 2 weeks ago when she hit her head No focal neuro deficit currently CT head on admission showed interval development of small focal area of increased attenuation adjacent to the posterior aspect of the falx which was not seen on on recent prior study, might represent developing calcifications, however small bleeding cannot be completely ruled out. Short-term follow-up is recommended. Repeat CT head on 02/04 showed no change in the 4 mm hyperdense focus within the right high convexity. This could represent calcification or a small hyperdense lesion rather than intraparenchymal hemorrhage given the stability. MRI on 02/05 showed redemonstration of a subtle nodular focus within the right parietal lobe near the high convexity with minimal surrounding edema. This demonstrates hypointense signal with possible restricted diffusion. This remains nonspecific but is concerning for a small lesion could represent a metastatic focus. Small focus of intracranial hemorrhage is considered less likely but not entirely excluded. No acute infarct. Discussed MRI finding with neurology Dr. Ny that recommended to repeat the MRI in 1 month. No additional testing needed for now Ok from neurology standpoint to resume the Eliquis (No official consult place for neurology ) Will need to repeat MRI in 1 month Hypertension Unsure whether or not she took home BP medications today Continue lisinopril and Verapmil Continue monitor BP History of CVA Continue asa, statin No current deficits Hypothyroidism TSH wnl Continue levothyroxine, Cytomel, thiothixene Depression Continue bupropion Prediabetes A1c 5.7 in Sep 2020 Holding metformin while inpatient BSG ACHS, add SSI if indicated RAKESH bipap 7/2 @ HS DVT Ppx: Eliquis on hold due to abnormal CT head finding Will add SCD Code status: FULL PCP: Asuncion Disposition Will discharge home today Admission and Anticipated Discharge Date Admission Date: February 02, 2021 Physical Exam Physical Exam: General- No acute distress Head- atraumatic Eyes- PERRL, EOMI, ENT- oropharynx clear Neck- supple, no JVD Lungs- clear to auscultation Heart- regular rhythm; no murmur Abdomen- normal bowel sounds, soft, nontender Extremities- no calf tenderness Neuro- alert, oriented x 3; PERRL, EOMI; no facial palsy; no dysarthria Skin- warm & dry Results & Data Results & Data ([facility]) Vital Signs (Past 12 Hours) Vital Signs Temp Pulse Pulse Pulse Resp BP BP 02/05/21 16:43 36.5 C 86 67 73 16 132/76 98/63 L 02/05/21 15:43 73 98/63 L 02/05/21 15:37 36.5 C 76 16 95/63 L 02/05/21 07:00 36.4 C L 73 16 132/76 Pulse Ox 02/05/21 16:43 96 02/05/21 15:43 02/05/21 15:37 96 02/05/21 07:00 96 (1) Hypertension Hypertension type: essential hypertension Qualified Code(s): I10 - Essential (primary) hypertension
[2021-02-05] MEDS ORDERED: FUROSEMIDE 20 MG TAB PO SCH (17:00)
[2021-02-05] MEDS: THIOTHIXENE 5 MG CAP PO SCH (18:09)
--- NOTE | 2021-02-09 08:53 | Discharge Summary ---
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 Patient follows with oncologist Dr. Nolasco. Recent PET scan from December 2020 shows new metabolically active hepatic metastasis and new lung nodules and metabolically active mediastinal lymphadenopathy. Also with history of a small 5 mm nodule in the brain. She have received 2 prophylactic cranial radiation therapy. Per most recent oncology note, recurrent metastatic disease is incurable. Plan to start palliative chemotherapy with atezolizumab today but lab work revealed hyponatremia at 119. Patient was sent to ED for further evaluation and treatment. Patient with history of SIADH in the setting of lung cancer with fluid restriction in the past of 1.2 to 1.[address] Matson of nephrology in clinic. When asked today about recent food and fluid intake, patient states appetite is decreased and she has been nauseous. Unable to quantify amount of fluid or answer whether or not she is being compliant with restriction. Unsure how many glasses of water she is drinking daily. Feels mentally foggy but not confused. Chronic difficulty with word finding, follows with neurology. Endorses generalized weakness and decreased urinary output. Denies any fever, chills, headache, chest pain, palpitations, shortness of breath, vomiting. Mild left l ower quadrant abdominal pain. Denies any diarrhea or constipation. Admission Exam Per Admitting Provider General Appearance: vitals as above, sitting up in bed, appears chronically ill pleasant, answers questions appropriately but slow zina to speech Head: normocephalic, atraumatic Eyes: normal inspection, PERRL, conjunctivae normal, anicteric sclerae ENT: external ear and nose normal, oropharynx normal Neck: normal visual inspection, trachea midline, no thyromegaly Respiratory: normal respiratory effort, lungs clear to auscultation, no wheeze, rales, rhonchi. No accessory muscle use Cardiovascular: regular rate, rhythm, no murmur appreciated, normal peripheral pulses, no BLE edema. Vessels: no JVD Chest: normal inspection of chest. Port in place Abdomen/GI: normal bowel sounds, soft, mild TTP of LLQ. No hepatosplenomegaly Extremities/Musculoskeletal: no cyanosis or clubbing, extremities motor str ength 5/5 Neurologic: PERRL, EOMI, accommodation nl, no face palsy, no dysarthria, CN's II-XI intact bilaterally and moves all extremities Psychiatric: A+Ox3, euthymic affect Skin: no rashes, normal color, warm/dry Principal Diagnosis (1) Hyponatremia: (2) SIADH (syndrome of inappropriate ADH production): (3) Small cell carcinoma of lung: (4) Chronic respiratory failure with hypoxia: (5) COPD (chronic obstructive pulmonary disease): (6) Paroxysmal A-fib: (7) Hypertension: (8) Chronic cerebral ischemia: (9) Hypothyroidism: (10) Depression: (11) RAKESH on CPAP: Discharge Exam General- No acute distress Head- atraumatic Eyes- PERRL, EOMI, ENT- oropharynx clear Neck- supple, no JVD Lungs- clear to auscultation Heart- regular rhythm; no murmur Abdomen- normal bowel sounds, soft, nontender Extremities- no calf tenderness Neuro- alert, oriented x 3; PERRL, EOMI; no facial palsy; no dysarthria Skin- warm & dry Discharge Data Allergies Allergy/AdvReac Type Severity Reaction Status Date / Time Beta-Blockers Allergy Severe Confusion; Verified 02/02/21 14:01 (Beta-Adrenergic Bloc Diarrhea; Rash tetracycline Allergy Intermediate RASH; Verified 02/02/21 14:01 "MYCINS" ALLERGY clindamycin Allergy Unknown "MYCINS" Verified 02/02/21 14:01 ALLERGY diltiazem Allergy Unknown ? Verified 02/02/21 14:01 Sulfa (Sulfonamide Allergy Unknown Unknown Verified 02/02/21 14:01 Antibiotics) sumatriptan Allergy Unknown "TRIPTANS" Verified 02/02/21 14:01 ALLERGY morphine Allergy Unknown Verified 02/02/21 14:01 codeine AdvReac Severe SYNCOPE Verified 02/02/21 14:01 PER PATIENT oxycodone AdvReac Mild GI UPSET Verified 02/02/21 14:01 Consultations 02/02/21 15:58 ED Decision to Admit Stat 02/02/21 18:03 Consult Nephrology Routine Ordered Studies 02/02/21 19:43 CT head/brain wo con Urgent 02/03/21 07:00 CT head/brain wo con Routine 02/04/21 09:00 CT head/brain wo con Routine 02/05/21 09:22 MR brain wo con Routine Brain MRI WITHOUT CONTRAST HISTORY: Normal head CT. F/U 4 mm hyperdense focus TECHNIQUE: Multiplanar multisequence MRI of the brain was performed without the use of contrast. COMPARISON STUDY: Head CT 02/04/2021. Brain MRI 07/21/2020. FINDINGS: There is again noted a subtle nodular focus within the right parietal lobe near the high convexity best seen on axial T2 image 19 and coronal FLAIR sequence image 19. There is minimal surrounding edema. This is hypointense on both T2 and T1 sequences. There appears to be a small amount of restricted diffusion at this location. This remains nonspecific but is concerning for a small lesion and could be metastatic. Contrast-enhanced sequences of the brain are recommended for follow-up. A small focus of hemorrhage could also a similar appearance. Extensive white matter T2 hyperintensity seen throughout the supratentorial brain has progressed in the interval. There is an old left basal ganglia infarct, unchanged. The paranasal sinuses and mastoid air cells are clear. The nature vascular flow voids at the skull base are well-maintained. No midline shift or acute infarct. IMPRESSION: 1. Redemonstration of a subtle nodular focus within the right parietal lobe near the high convexity with minimal surrounding edema. This demonstrates hypointense signal with possible restricted diffusion. This remains nonspecific but is concerning for a small lesion could represent a metastatic focus. Small focus of intracranial hemorrhage is considered less likely but not entirely excluded. Therefore, dedicated contrast-enhanced MR of the brain is recommended for further evaluation. 2. No acute infarct. 3. Progressive T2 signal abnormality seen throughout the white matter. This could be due to posttreatment changes or a nonspecific leukoencephalopathy. ACT 112: Negative or not required by law. Electronically signed by: Abiel Garza M.D. 02/05/2021 11:38 AM Dictated: 02/05/21 1130Transcribed: 02/05/[address] DOSE: 823.94 mGycm HISTORY: Abnormal head CT. Follow-up. eval for intracranial bleed TECHNIQUE: Multiaxial CT images of the head were performed without the use of intravenous contrast. Automated exposure control was utilized for this study. A dose lowering technique was utilized adhering to the principles of ALARA. Comparison: Head CT 02/03/2021. Findings: The paranasal sinuses and mastoid air cells are clear. The calvarium and skull base are intact. Stable punctate 4 mm hyperdense focus within the right high convexity. Stable chronic periventricular white matter hypodensity and an old left basal ganglia lacunar infarct are identified. No acute infarcts or midline shift. The ventricles and sulci are stable. Impression: No change in the 4 mm hyperdense focus within the right high convexity. This could represent calcification or a small hyperdense lesion rather than intraparenchymal hemorrhage given the stability. However, an additional [address] or MRI follow-up recommended for confirmation. ACT 112: Negative or not required by law. Electronically signed by: Abiel Garza M.D. 02/04/2021 9:10 AM Dictated: 02/04/21 0907Transcribed: 02/04/[address] DOSE: 884.08 mGy.cm HISTORY: questionable small bleeding ? on prior ct scan TECHNIQUE: Multiaxial CT images of the head were performed without the use of intravenous contrast. Automated exposure control was utilized for this study. A dose lowering technique was utilized adhering to the principles of ALARA. Comparison: Head CT 02/02/2021 and 09/02/2020. Findings: The paranasal sinuses and mastoid air cells are clear. Old left basal ganglia infarct remains unchanged. Extensive white matter hypodensity is also unchanged and favors advanced microvascular ischemic change. No midline shift identified. Redemonstration of the 4 mm hyperdense focus within the cortex of the right high convexity. This may contain a small focus of calcification. However, a small intraparenchymal hematoma cannot be excluded. [address] follow-up recommended to ensure stability. Impression: Redemonstration of the 4 mm hyperdense focus within the cortex of the right high convexity. This may contain a small focus of calcification. However, a small intraparenchymal hematoma cannot be excluded. [address] follow-up recommended to ensure stability. ACT 112: Negative or not required by law. Electronically signed by: Abiel Garza M.D. 02/03/2021 2:30 PM Dictated: 02/03/211420Transcribed: 02/03/211420 CT head/brain wo con CLINICAL HISTORY: mentation change COMPARISON STUDY: September 02, 2020 TECHNIQUE: Axial CT of the brain is performed from the vertex to the skull base. IV contrast was not administered for this examination. A dose lowering technique was utilized adhering to the principles of ALARA. CT DOSE: 614.27 mGy.cm FINDINGS: Interval development of focal area of increased attenuation adjacent to the posterior aspect of the falx/temporal region which was not seen during September 11, 2020 and might represent developing calcifications, however small focal hemorrhage cannot be completely ruled out (301/111). Evaluation is limited due to beam hardening artifact. Mild atrophic changes of brain parenchyma are again seen and associated with ex vacuo dilatation of ventricles. Large lacunar infarct is seen within left basal ganglia and was also seen during prior study. Extensive areas of decreased attenuation are seen within periventricular and subcortical white matter likely representing chronic small vessel ischemia. There is no acute depressed skull fractures seen. Visualized paranasal sinuses and mastoid air cells are patent and well aerated. IMPRESSION: 1. Interval development of small focal area of increased attenuation adjacent to the posterior aspect of the falx which was not seen on on recent prior study, might represent developing calcifications, however small bleeding cannot be completely ruled out. Short-term follow-up is recommended. 2. Extensive areas of decreased attenuation within periventricular and subcortical white matter are similar to prior study representing chronic small vessel ischemia. 3. Large lacunar infarct within the left basal ganglia, was also seen during prior study. 4. Limited exam due to beam hardening artifact. ACT 112: Positive. There are findings on this exam that require communication between the performing entity and the patient following Patient Test Result Information Act ([place] Act 112) guidelines. The above report was generated using voice recognition software. It may contain grammatical, syntax or spelling errors. Electronically signed by: Miranda Campa DO 02/02/2021 9:11 PM Dictated: 02/02/212046Transcribed: 02/02/212049 XR chest 1V portable HISTORY: weakness COMPARISON: Chest 10/01/2020. FINDINGS: Right jugular Port-A-Cath remains at the proximal SVC. No pneumotho rax. No pleural effusions. The heart is normal in size. Mild emphysema. The right lung is clear. A 1 cm nodular density within the left lung apex. This could be due to the overlapping second rib. There is also a new left infrahilar density with a few linear scarlike densities in the left midlung zone. Left basilar interstitial thickening remain stable. IMPRESSION: Left infrahilar irregular density which is new from the prior study and could be due to post radiation change. There is also possible 1 cm left upper lobe nodule. Follow-up chest CT is recommended for further evaluation of these fi ndings. ACT 112: Negative or not required by law. Electronically signed by: Abiel Garza M.D. 02/02/2021 3:15 PM Dictated: 02/02/21 1506Transcribed: 02/02/21 1506 Hospital Course (1) Hyponatremia: (2) SIADH (syndrome of inappropriate ADH production): (3) Small cell carcinoma of lung: (4) Chronic respiratory failure with hypoxia: (5) COPD (chronic obstructive pulmonary disease): (6) Paroxysmal A-fib: (7) Hypertension: (8) Chronic cerebral ischemia: (9) Hypothyroidism: (10) Depression: (11) RAKESH on CPAP: This is a 60yo F with a PMH of small cell lung ca s/p 4 cycles of carboplatin and etoposide with radiation completed 02/21/2020 as well as prophylactic cranial radiation, SIADH, PAF anticoagulated on Eliquis and rhythm controlled on flecainide, chronic respiratory failure secondary to emphysema on chronic 2 L of O2, RAKESH on CPAP, history of CVA without residual deficit, CAD, hypothyroidism, prediabetes, depression, schizoaffective disorder, PTSD and other medical problems listed below who was sent over by oncologist for laboratory findings of hyponatremia. Hyponatremia History of chronic hyponatremia, known hx of SIADH - patient unsure whether or note she has been compliant with fluid restriction of 1.2-1.5L -believes she has been drinking less but does not count Endorses "groggy" feeling, generalized weakness CT head wo contrast ordered Unsure if compliant with Urea Sodium of 120 on admission last Na was 134 on 12/26/20 Na 133 today Serum osm low at 247 Nephrology on board Case discussed with Nephrology that recommended to continue Lasix 20 mg po twice daily, Urea 15 grams twice daily--continue if we can get the Rx covered, Salt tablet 1 g twice daily. Will check BMP on Tuesday Ok from nephrology standpoint to discharge home Small cell carcinoma of lung S/p 4 cycles of carboplatin and etoposide with radiation completed 02/21/2020 as well as prophylactic cranial radiation Recent PET scan from December 2020 shows new metabolically active hepatic metastasis and new lung nodules and metabolically active mediastinal lymphadenopathy. now considered incurable disease Plan to start palliative chemotherapy today with atezolizumab but sent to ER for admission for hyponatremia Follows with Dr. Nolasco Chronic respiratory failure with hypoxia COPD In setting of COPD Continue O2 supplementation 2L NC, home inhalers Paroxysmal Atrial fibrillation Rate and rhythm controlled on flecainide Anticoagulated with Eliquis was on hold, will resume Abnormal CT head finding Pt said that she had a fall 2 weeks ago when she hit her head No focal neuro deficit currently CT head on admission showed interval development of small focal area of increased attenuation adjacent to the posterior aspect of the falx which was not seen on on recent prior study, might represent developing calcifications, however small bleeding cannot be completely ruled out. Short-term follow-up is recommended. Repeat CT head on 02/04 showed no change in the 4 mm hyperdense focus within the right high convexity. This could represent calcification or a small hyperdense lesion rather than intraparenchymal hemorrhage given the stability. MRI on 02/05 showed redemonstration of a subtle nodular focus within the right parietal lobe near the high convexity with minimal surrounding edema. This demonstrates hypointense signal with possible restricted diffusion. This remains nonspecific but is concerning for a small lesion could represent a metastatic focus. Small focus of intracranial hemorrhage is considered less likely but not entirely excluded. No acute infarct. Imaging finding discussed with patient in details Discussed MRI finding with neurology Dr. Ny that recommended to repeat the MRI in 1 month. No additional testing needed for now Ok from neurology standpoint to resume the Eliquis (No official consult place for neurology ) Will need to repeat MRI in 1 month Hypertension Unsure whether or not she took home BP medications today Continue lisinopril and Verapmil Continue monitor BP History of CVA Continue asa, statin No current deficits Hypothyroidism TSH wnl Continue levothyroxine, Cytomel, thiothixene Depression Continue bupropion Prediabetes A1c 5.7 in Sep 2020 Holding metformin while inpatient BSG ACHS, add SSI if indicated RAKESH bipap 7/ @ HS DVT Ppx: Eliquis on hold due to abnormal CT head finding Will add SCD Code status: FULL PCP: [facility] Disposition Will discharge home today Total Time Total Time Spent Total Time Spent (In Minutes): 35 minutes Total Time Includes: Examination of the Patient, Discharge Planning, Medication Reconciliation, Communication With Other Providers and Other Discharge Plan Discharge Items Patient Disposition: Home - Self-Care Reason For Visit: Hyponatremia Discharge Diagnosis: (1) Hyponatremia: (2) SIADH (syndrome of inappropriate ADH production): (3) Small cell carcinoma of lung: (4) Chronic respiratory failure with hypoxia: (5) COPD (chronic obstructive pulmonary disease): (6) Paroxysmal A-fib: (7) Hypertension: (8) Chronic cerebral ischemia: (9) Hypothyroidism: (10) Depression: (11) RAKESH on CPAP: Activity: Resume your previous activity Non-emergency contact: Primary Care Provider Call non-emergency contact if: you have any medication questions Follow-up/Referrals: Dmitry Roland DO [Primary Care Provider] - Diet: Heart Healthy Fluids: 1200ml (5 cups) Addtl Attending Provider Instructions: Follow up with your primary care provider Dr. Roland within 1 week Check BMP on Friday 02/09 to monitor your electrolytes You will need to get a repeat MRI brain for follow up of the calcification lesion that was seen on your brain Continue fluid restriction with 1200ml daily Continue oxygen supplement Continue monitor your blood pressure Continue oxygen supplement continue urea 15 grams twice daily if you can get the (if covered by insurance) Pending Studies at Discharge: No Stand-Alone Forms: [employer], Smoking Cessation Medications and DC Order Prescriptions: Continued calcium carbonate [Calcium 500] 500 mg calcium (1,250 mg) tablet 500 mg PO DAILY RF: 0 magnesium oxide 400 mg magnesium capsule 400 mg PO DAILY RF: 0 metformin 1,000 mg tablet 1,000 mg PO BID RF: 0 verapamil 240 mg capsule,ext rel. pellets 24 hr 240 mg PO DAILY RF: 0 (DME) Oxygen Home Liters Per Minute See Rx Instructions .ROUTE .MEDSUPPLY Qty: 1 RF: 0 liothyronine [Cytomel] 5 mcg tablet 5 mcg PO BID RF: 0 multivitamin Tablet 1 tab PO DAILY RF: 0 fluticasone propionate [Flonase Allergy Relief] 50 mcg/actuation spray,suspension 2 sprays INTNAS DAILY PRN (Reason: allergy symptoms) RF: 0 apixaban 5 mg tablet 5 mg PO BID Qty: 180 RF: 0 flecainide 100 mg tablet 100 mg PO BID Qty: 180 RF: 0 omeprazole 20 mg capsule,delayed release(DR/EC) 20 mg PO BID RF: 0 montelukast 10 mg tablet 10 mg PO HS RF: 0 albuterol sulfate [Ventolin HFA] 90 mcg/actuation HFA aerosol inhaler 2 puffs INH Q6H PRN (Reason: Shortness Of Breath Or Wheezing) RF: 0 bupropion HCl 200 mg tablet sustained-release 12 hr 200 mg PO QAM RF: 0 thiothixene 5 mg capsule 5 mg PO DAILY RF: 0 fluticasone propion-salmeterol [Wixela Inhub] 500-50 mcg/dose Blister With Device 1 inh INHALATION Q12H RF: 0 lisinopril 10 mg Tablet 10 mg PO BID Qty: 60 RF: 0 levothyroxine [Synthroid] 112 mcg Tablet 112 mcg PO DAILYBB Qty: 30 RF: 0 Spiriva with HandiHaler 18 mcg capsule, w/inhalation device 18 mcg INHALATION DAILY RF: 0 sennosides-docusate sodium [Senokot-S] 8.6-50 mg Tablet 1 tab PO QAM PRN (Reason: constipation) Qty: 30 RF: 0 prochlorperazine maleate [Compazine] 10 mg tablet 10 mg PO Q6H PRN (Reason: Nausea) RF: 0 pravastatin 80 mg tablet 80 mg PO DAILY RF: 0 aspirin 81 mg Tablet,Delayed Release (Dr/Ec) 162 mg PO HS Qty: 30 RF: 3 sodium chloride 1,000 mg Tablet,Soluble 1,000 mg PO BID RF: 0 ondansetron HCl 8 mg tablet 8 mg PO TID PRN (Reason: nausea/vomiting) Qty: 30 RF: 0 furosemide 20 mg tablet 20 mg PO BID Qty: 60 RF: 0 Changed urea 15 gram Powder In Packet 1 packet PO BID Qty: 60 RF: 0 Discharge Orders: Discharge Order (Routine); Ordered 02/05/21 Ordered By: Miguelito Santiago/Other Patient Handouts: Hyponatremia Dc, Discharge Instructions for ..., ED Fall Dizziness Weakn Balance Admission Data Admit Date/Time: 02/02/21 16:34 Attending Provider: Miguelito Bonilla Admit Provider: Cony Soto Primary Care Provider: Dmitry Roland Other Providers: Cony Soto ; Donavan Matson Other Interventions: Discharge Summary Assessment (RN) Last Done: 02/05/21 16:43
== END 2021-02-05 18:45 | disposition home or self-care (01) | DRG 644 ==
LOC: ED 13:04 → 2E 16:34 → SUATTDRO 16:34 → 2E 17:36 → 3W 02-03 15:19

== ENCOUNTER 2021-03-21 17:25 | Inpatient (IN) ==
[2021-03-21] MEDS ORDERED: SODIUM CHLORIDE 0.9% 1000ML 1,000 ML IV SCH (17:45)
--- NOTE | 2021-03-21 17:46 | Emergency Department Note ---
History of Present Illness General Chief complaint: Lethargic Time Seen by Provider: 03/21/21 17:26 History of Present Illness 60-year-old female presents somewhat confused and lethargic. The patient was found by her son lethargic at her home today. EMS provided most of the available history. They report that the patient has a history of lung cancer with metastatic disease. She has a history of diabetes. Her prehospital blood sugar was 140. She had a Covid vaccine yesterday. The patient denies having any pain. When asked specific questions, the patient was reluctant or unable to answer. No additional information available from the patient at this time. Home Medications Medication Instructions Recorded Confirmed Type apixaban 5 mg tablet 5 mg PO BID #180 tab 03/14/19 03/21/21 History flecainide 100 mg tablet 100 mg PO BID #180 tab 03/14/19 03/21/21 History montelukast 10 mg tablet 10 mg PO HS tab 03/14/19 03/21/21 History omeprazole 20 mg capsule,delayed 20 mg PO BID cap 03/14/19 03/21/21 History release albuterol sulfate 90 mcg/actuation 2 puffs INH Q6H PRN 03/27/19 03/21/21 History aerosol inhaler (Ventolin HFA) sennosides 8.6 mg-docusate sodium 1 tab PO QAM PRN #30 tab 11/12/19 03/21/21 Rx 50 mg tablet (Senokot-S) Oxygen Home #1 ea 11/20/19 02/02/21 History calcium carbonate 500 mg calcium 500 mg PO DAILY 11/20/19 03/21/21 History (1,250 mg) tablet (Calcium 500) liothyronine 5 mcg tablet (Cytomel) 5 mcg PO BID tab 11/20/19 03/21/21 History magnesium oxide 400 mg PO DAILY 11/20/19 03/21/21 History metformin 1,000 mg tablet 1,000 mg PO BID 11/20/19 03/21/21 History multivitamin 1 tab PO DAILY 11/20/19 03/21/21 History verapamil 240 mg 24 hr 240 mg PO DAILY 11/20/19 03/21/21 History capsule,extended release fluticasone propionate 50 2 sprays INTNAS DAILY PRN 11/22/19 03/21/21 History mcg/actuation nasal spray,suspension (Flonase Allergy Relief) thiothixene 5 mg capsule 5 mg PO DAILY cap 11/22/19 03/21/21 History pravastatin 80 mg tablet 80 mg PO DAILY 07/21/20 03/21/21 History aspirin 81 mg tablet,delayed 162 mg PO HS #30 tab 07/22/20 03/21/21 Rx release fluticasone 500 mcg-salmeterol 50 1 inh INHALATION Q12H 10/01/20 03/21/21 History mcg/dose blistr powdr for inhalation (Wixela Inhub) lisinopril 10 mg tablet 10 mg PO BID #60 tab 10/05/20 03/21/21 Rx sodium chloride 1,000 mg soluble 1,000 mg PO BID 02/02/21 03/21/21 History tablet furosemide 20 mg tablet 20 mg PO BID #60 tab 02/05/21 03/21/21 Rx ondansetron HCl 8 mg tablet 8 mg PO TID PRN #30 tab 02/05/21 03/21/21 Rx urea 15 gram oral powder packet 1 packet PO BID #60 ea 02/05/21 03/21/21 Rx bupropion HCl 200 mg tablet,12 hr 200 mg PO DAILY 03/21/21 03/21/21 History sustained-release levothyroxine 125 mcg tablet 125 mcg PO DAILYBB 03/21/21 03/21/21 History Allergies Allergy/AdvReac Type Severity Reaction Status Date / Time Beta-Blockers Allergy Severe Confusion; Verified 03/21/21 19:12 (Beta-Adrenergic Bloc Diarrhea; Rash tetracycline Allergy Intermediate RASH; Verified 03/21/21 19:12 "MYCINS" ALLERGY clindamycin Allergy Unknown "MYCINS" Verified 03/21/21 19:12 ALLERGY diltiazem Allergy Unknown ? Verified 03/21/21 19:12 Sulfa (Sulfonamide Allergy Unknown Unknown Verified 03/21/21 19:12 Antibiotics) sumatriptan Allergy Unknown "TRIPTANS" Verified 03/21/21 19:12 ALLERGY morphine Allergy Unknown Verified 03/21/21 19:12 codeine AdvReac Severe SYNCOPE Verified 03/21/21 19:12 PER PATIENT oxycodone AdvReac Mild GI UPSET Verified 03/21/21 19:12 Past Med/Surg History Medical History Abnormal mammography CAD (coronary artery disease) Chronic hyponatremia Common migraine without aura Contusion of left hip Diaphragmatic hernia Diverticulosis of colon Dizziness DS (disseminated sclerosis) Dyslipidemia Dysmetabolic syndrome X Eczema Encounter for pre-operative examination GERD (gastroesophageal reflux disease) Hearing loss HTN (hypertension) Hyponatremia Memory loss Migraines Neuropathy Non-occlusive coronary artery disease Old anteroseptal myocardial infarction (2004) Osteoporosis, unspecified Presence of stent in LAD coronary artery (2004) Schizoaffective disorder SIADH (syndrome of inappropriate ADH production) Small cell carcinoma of lung Unspecified osteomyelitis, ankle and foot Surgical History History of bunionectomy History of colonoscopy History of coronary angioplasty Stent by Dr. Bryan History of tubal ligation History of wisdom tooth extraction Family History Father , 56yo Hypertension Liver cancer Migraines Mother , at 65yo Breast cancer Diabetes Hypertension Emphysema lung Brother No problems noted. Sister Diabetes Liver cancer H/O liver transplant Hypertension Son No problems noted. Son Prediabetes Social History Smoking Status: Former smoker Tobacco Type: Cigarettes Cigarettes Per Day: 2-2.5 packs per day; Second Hand Exposure: No; Hx Alcohol Use: No Hx Substance Use: No Preferred Language: Spanish Communication Ability: Effective Visual Impairment: No Limitations Hearing Ability: Normal Sonar Technician Required: No Beliefs That Will Affect Care: None marital status: Current Living Situation: Family Current Living Situation Comment: House no steps into home, into bedroom or into bathroom current occupational status: unemployed current occupation: On disability How many Children do You have: 2 Feels Safe at Home: Yes Diet Comment: High protein diet, fluid restriction, diabetic diet; caffeine: No during the past year weight has: decreased > 10 lbs Assistive Devices: Glasses Review of Systems Unobtainable due to cognitive status Physical Exam Vital Signs Vital Signs - 24 hr 03/21/21 17:11 03/21/21 17:34 03/21/21 17:37 Temperature 37.4 C Temperature Source Oral Pulse Rate 100 H 103 H Pulse Rate from SpO2 Sensor 102 H Pulse Rhythm Regular Pulse Strength Normal Respiratory Rate 27 H 26 H Respiratory Effort / Characteristics Non-Labored Spontaneous Respiratory Depth Normal Respiratory Pattern Regular Blood Pressure 158/109 H Blood Pressure Mean 125 Blood Pressure Position Lying Pulse Oximetry 100 100 100 Oxygen Delivery Method Nasal Cannula Nasal Cannula Oxygen Flow Rate 3 3 Sepsis Recent Fever Within 48 Hours Yes Sepsis New/Unexplained Change in Mental Status Yes Sepsis Action Taken by Nursing Physician Notified 03/21/21 18:24 03/21/21 18:30 03/21/21 19:00 Temperature Temperature Source Pulse Rate 100 H 101 H 103 H Pulse Rate from SpO2 Sensor 100 H 101 H 103 H Pulse Rhythm Pulse Strength Respiratory Rate 23 23 24 Respiratory Effort / Characteristics Respiratory Depth Respiratory Pattern Blood Pressure 149/99 H 161/97 H 159/104 H Blood Pressure Mean 115 118 122 Blood Pressure Position Pulse Oximetry 99 98 99 Oxygen Delivery Method Oxygen Flow Rate Sepsis Recent Fever Within 48 Hours Sepsis New/Unexplained Change in Mental Status Sepsis Action Taken by Nursing 03/21/21 19:30 Temperature Temperature Source Pulse Rate 108 H Pulse Rate from SpO2 Sensor 108 H Pulse Rhythm Pulse Strength Respiratory Rate 23 Respiratory Effort / Characteristics Respiratory Depth Respiratory Pattern Blood Pressure 172/96 H Blood Pressure Mean 121 Blood Pressure Position Pulse Oximetry 99 Oxygen Delivery Method Oxygen Flow Rate 2 Sepsis Recent Fever Within 48 Hours Sepsis New/Unexplained Change in Mental Status Sepsis Action Taken by Nursing CONSTITUTIONAL/VITAL SIGNS: Reviewed / noted above. GENERAL: Non-toxic in appearance. INTEGUMENTARY: Warm, dry, and [place]. HEAD: Normocephalic. EYES: without scleral icterus or trauma. ENT/OROPHARYNX: clear and moist. LYMPHADENOPATHY/NECK: Is supple without lymphadenopathy or meningismus. RESPIRATORY: Clear to auscultation bilaterally. No increased work of breathing. CARDIOVASCULAR: Regular rate and rhythm. GI/ABDOMEN: Soft and nontender. No organomegaly or pulsatile mass. EXTREMITIES: Warm and well perfused. BACK: No CVA tenderness. NEUROLOGICAL: The patient is awake. Answers basic questions but unable to carry a conversation or complete entire sentence. Not sure if the patient is just not listening, does not understand or does not want to respond. MUSCULOSKELETAL: No obvious trauma. TRIAGE NURSING DOCUMENTATION REVIEWED. Course Administered Medications Discontinued Medications Sodium Chloride (Nss 1000ml) 1,000 mls @ 999 mls/hr IV .Q1H1M LEROY Stop: 03/21/21 18:45 Last Infusion: 03/21/21 19:55 Dose: 0 mls/hr Documented by: [id number] Admin: 03/21/21 18:21 Dose: 999 mls/hr Documented by: [id number] Piperacillin Sod/Tazobactam Sod (Zosyn) 4.5 gm in 120 mls @ 240 mls/hr IV NOW ONE Stop: 03/21/21 19:32 Last Admin: 03/21/21 19:56 Dose: 240 mls/hr Documented by: [id number] Medical Decision Making Differential Diagnosis Differential includes acute coronary syndrome, myocardial infarction, CVA, TIA, anemia, infection, pneumonia, UTI, pyelonephritis, poor nutrition, dehydration, electrolyte disturbance,hypoglycemia. Medical Records Attestation: I reviewed the patient's medical records. Home Medications Current Medication List: was personally reviewed by me Laboratory Data Attestation: I reviewed the patient's lab results. Result diagrams: 03/21/21 18:05 03/21/21 18:05 Lab Results 03/21/21 03/21/21 03/21/21 Range/Units 18:05 18:05 18:05 WBC 1.05 L (4.8-10.8) K/uL RBC 3.78 L (4.2-5.4) M/uL Hgb 10.1 L (12.0-16.0) g/dL Hct 29.1 L (37-47) % MCV 77.0 L (80-100) fL MCH 26.7 (25-34) pg MCHC 34.7 (32-36) g/dL RDW Std Deviation 52.4 H (36.4-46.3) fL RDW Coeff of Chepe 20.6 H (11.5-14.5) % Plt Count 77 L (130-400) K/uL MPV 9.0 (7.4-10.4) fL Immature Gran % (Auto) 0.0 % Neut % (Auto) 63.9 % Lymph % (Auto) 19.0 % Cameron % (Auto) 17.1 % Eos % (Auto) 0.0 % Baso % (Auto) 0.0 % Neut # (Auto) 0.67 L* (1.4-6.5) K/uL Lymph # (Auto) 0.20 L (1.2-3.4) K/uL Cameron # (Auto) 0.18 (0.11-0.59) K/uL Eos # (Auto) 0.00 (0-0.5) K/uL Baso # (Auto) 0.00 (0-0.2) K/uL Immature Gran # (Auto) 0.00 (0.00-0.02) K/uL Platelet Estimate Decreased L (Normal) Polychromasia 1+ Hypochromasia Present Ovalocytes 1+ Sodium 120 L (136-145) mmol/L Potassium 4.2 (3.5-5.1) mmol/L Chloride 90 L (98-107) mmol/L Carbon Dioxide 23 (21-32) mmol/L Anion Gap 7.0 (3-11) BUN 6 L (7-18) mg/dl Creatinine 0.46 L (0.6-1.2) mg/dl Est Cr Clr Drug Dosing 112.1 ml/min Est GFR ( Amer) 123.6 ml/min Est GFR (Non-Af Amer) 106.6 ml/min BUN/Creatinine Ratio 13.5 (10-20) Glucose 114 H (70-99) mg/dl Calcium 8.7 (8.5-10.1) mg/dl Magnesium 1.7 L (1.8-2.4) mg/dl Total Bilirubin 0.4 (0.2-1) mg/dl AST 14 L (15-37) U/L ALT 20 (12-78) U/L Alkaline Phosphatase 94 (45-117) U/L Total Creatine Kinase 35 (26-192) U/L Troponin I < 0.015 (0-0.045) ng/ml Total Protein 7.2 (6.4-8.2) gm/dl Albumin 3.5 (3.4-5.0) gm/dl Globulin 3.7 (2.5-4.0) gm/dl Albumin/Globulin Ratio 0.9 (0.9-2) TSH 1.090 (0.300-4.500) uIu/ml Urine Color Yellow Urine Appearance Clear (Clear) Urine pH >= 9.0 H (4.5-7.5) Ur Specific Murray 1.016 (1.000-1.030) Urine Protein Trace H (Negative) Urine Glucose (UA) Negative (Negative) Urine Ketones Negative (Negative) Urine Blood Negative (Negative) Urine Nitrite Negative (Negative) Urine Bilirubin Negative (Negative) Urine Urobilinogen Negative (Negative) Ur Leukocyte Esterase 1+ H (Negative) Urine WBC (Auto) 10-30 H (0-5) /hpf Urine RBC (Auto) 0-4 (0-4) /hpf U Hyaline Cast (Auto) 1-5 (0-5) /lpf U Epithel Cells (Auto) 5-10 H (0-5) /lpf Urine Bacteria (Auto) 4+ H (Negative) COVID-19 Eval Order SARS-CoV-2 (PCR) (Negative) 03/21/21 03/21/21 Range/Units 18:08 18:08 WBC (4.8-10.8) K/uL RBC (4.2-5.4) M/uL Hgb (12.0-16.0) g/dL Hct (37-47) % MCV (80-100) fL MCH (25-34) pg MCHC (32-36) g/dL RDW Std Deviation (36.4-46.3) fL RDW Coeff of Chepe (11.5-14.5) % Plt Count (130-400) K/uL MPV (7.4-10.4) fL Immature Gran % (Auto) % Neut % (Auto) % Lymph % (Auto) % Cameron % (Auto) % Eos % (Auto) % Baso % (Auto) % Neut # (Auto) (1.4-6.5) K/uL Lymph # (Auto) (1.2-3.4) K/uL Cameron # (Auto) (0.11-0.59) K/uL Eos # (Auto) (0-0.5) K/uL Baso # (Auto) (0-0.2) K/uL Immature Gran # (Auto) (0.00-0.02) K/uL Platelet Estimate (Normal) Polychromasia Hypochromasia Ovalocytes Sodium (136-145) mmol/L Potassium (3.5-5.1) mmol/L Chloride (98-107) mmol/L Carbon Dioxide (21-32) mmol/L Anion Gap (3-11) BUN (7-18) mg/dl Creatinine (0.6-1.2) mg/dl Est Cr Clr Drug Dosing ml/min Est GFR ( Amer) ml/min Est GFR (Non-Af Amer) ml/min BUN/Creatinine Ratio (10-20) Glucose (70-99) mg/dl Calcium (8.5-10.1) mg/dl Magnesium (1.8-2.4) mg/dl Total Bilirubin (0.2-1) mg/dl AST (15-37) U/L ALT (12-78) U/L Alkaline Phosphatase (45-117) U/L Total Creatine Kinase (26-192) U/L Troponin I (0-0.045) ng/ml Total Protein (6.4-8.2) gm/dl Albumin (3.4-5.0) gm/dl Globulin (2.5-4.0) gm/dl Albumin/Globulin Ratio (0.9-2) TSH (0.300-4.500) uIu/ml Urine Color Urine Appearance (Clear) Urine pH (4.5-7.5) Ur Specific Murray (1.000-1.030) Urine Protein (Negative) Urine Glucose (UA) (Negative) Urine Ketones (Negative) Urine Blood (Negative) Urine Nitrite (Negative) Urine Bilirubin (Negative) Urine Urobilinogen (Negative) Ur Leukocyte Esterase (Negative) Urine WBC (Auto) (0-5) /hpf Urine RBC (Auto) (0-4) /hpf U Hyaline Cast (Auto) (0-5) /lpf U Epithel Cells (Auto) (0-5) /lpf Urine Bacteria (Auto) (Negative) COVID-19 Eval Order Covid19 at [facility] SARS-CoV-2 (PCR) NEGATIVE (Negative) Imaging Data Radiologist's Impression: Chest X-Ray 03/21/21 17:34 SINGLE VIEW CHEST CLINICAL HISTORY: Generalized weakness. Lung cancer. FINDINGS: An AP, portable, upright chest radiograph is compared to study dated 02/02/2021 and correlated with chest CT dated 05/01/2020. The examination is degraded by portable technique and patient rotation. A right internal jugular central venous infusion port is unchanged in position. The cardiomediastinal silhouette is unremarkable noting atherosclerotic calcification of the thoracic aorta. Emphysema and chronic interstitial thickening is similar to previous. There are foci of bibasilar scarring/atelectasis. Fibrotic change is again seen in the left perihilar region with elevation of the left hemidiaphragm. There is no evidence of superimposed airspace consolidation or large pleural effusion. No pneumothorax is seen. The skeletal structures are osteopenic. The bony thorax is grossly intact. IMPRESSION: 1. Advanced emphysematous change. 2. There is increasing fibrotic change in the perihilar left lung which could represent tumor/adenopathy versus treatment related change. 3. No airspace consolidation is seen typical for pneumonia and there is no large pleural effusion. ACT 112: Negative or not required by law. Electronically signed by: Tan Ruiz M.D. 03/21/2021 6:35 PM ECG Data Attestation: I personally reviewed and interpreted this ECG as follows: Additional Comments: Twelve-lead EKG: Per my interpretation there is a sinus tach at a rate of 101. No ST elevation. No ectopy. Normal QTC. MDM Narrative Patient presents with altered mental status as detailed above. The patient's EKG shows a sinus tach at a rate of 101. The white blood cell count is 1.05. ANC is 0.67. Hemoglobin is 10.1. Chest x-ray shows some increasing fibrotic changes in the left perihilar area but no acute pneumonia. Urine suggest infection. The patient sodium is 120 with a chloride of 90. She does have history of SIADH and history of hyponatremia in the past. She was admitted last month for the same. Troponin was negative. The patient was given empiric IV fluids of normal saline during her ED stay. She was given some IV Zosyn as well. She will be seen by the hospitalist for further inpatient evaluation and care. Impression & Plan Altered mental status, UTI (urinary tract infection), Acute hyponatremia Discharge Plan Visit Data Chief Complaint: Lethargic ED Provider: Philippe Bone Discharge Problem: Altered mental status, UTI (urinary tract infection), Acute hyponatremia Forms Stand Alone Forms: My [employer] Prescriptions Prescriptions: No Action calcium carbonate [Calcium 500] 500 mg calcium (1,250 mg) tablet 500 mg PO DAILY RF: 0 magnesium oxide 400 mg magnesium capsule 400 mg PO DAILY RF: 0 metformin 1,000 mg tablet 1,000 mg PO BID RF: 0 verapamil 240 mg capsule,ext rel. pellets 24 hr 240 mg PO DAILY RF: 0 (DME) Oxygen Home Liters Per Minute See Rx Instructions .ROUTE .MEDSUPPLY Qty: 1 RF: 0 liothyronine [Cytomel] 5 mcg tablet 5 mcg PO BID RF: 0 multivitamin Tablet 1 tab PO DAILY RF: 0 fluticasone propionate [Flonase Allergy Relief] 50 mcg/actuation spray,suspension 2 sprays INTNAS DAILY PRN (Reason: allergy symptoms) RF: 0 apixaban 5 mg tablet 5 mg PO BID Qty: 180 RF: 0 flecainide 100 mg tablet 100 mg PO BID Qty: 180 RF: 0 omeprazole 20 mg capsule,delayed release(DR/EC) 20 mg PO BID RF: 0 montelukast 10 mg tablet 10 mg PO HS RF: 0 albuterol sulfate [Ventolin HFA] 90 mcg/actuation HFA aerosol inhaler 2 puffs INH Q6H PRN (Reason: Shortness Of Breath Or Wheezing) RF: 0 thiothixene 5 mg capsule 5 mg PO DAILY RF: 0 fluticasone propion-salmeterol [Wixela Inhub] 500-50 mcg/dose Blister With Device 1 inh INHALATION Q12H RF: 0 lisinopril 10 mg Tablet 10 mg PO BID Qty: 60 RF: 0 sennosides-docusate sodium [Senokot-S] 8.6-50 mg Tablet 1 tab PO QAM PRN (Reason: constipation) Qty: 30 RF: 0 pravastatin 80 mg tablet 80 mg PO DAILY RF: 0 aspirin 81 mg Tablet,Delayed Release (Dr/Ec) 162 mg PO HS Qty: 30 RF: 3 bupropion HCl 200 mg tablet sustained-release 12 hr 200 mg PO DAILY RF: 0 levothyroxine 125 mcg tablet 125 mcg PO DAILYBB RF: 0 sodium chloride 1,000 mg Tablet,Soluble 1,000 mg PO BID RF: 0 ondansetron HCl 8 mg tablet 8 mg PO TID PRN (Reason: nausea/vomiting) Qty: 30 RF: 0 furosemide 20 mg tablet 20 mg PO BID Qty: 60 RF: 0 urea 15 gram Powder In Packet 1 packet PO BID Qty: 60 RF: 0 Referrals Referrals: Dmitry Roland DO [Primary Care Provider] - Discharge Problem: Altered mental status Qualifiers: Altered mental status type: disorientation Qualified Code(s): R41.0 - Disorientation, unspecified
[2021-03-21 18:30] LABS: Hematocrit (blood only) 29.1 % (37-47); Hemoglobin 10.1 g/dL (12.0-16.0); Mean Corpuscular Hemoglobin 26.7 pg (25-34); Mean Corpuscular Hgb Conc 34.7 g/dL (32-36); RDW Coefficient of Variation 20.6 % (11.5-14.5); RDW Standard Deviation 52.4 fL (36.4-46.3); Red Blood Count 3.78 M/uL (4.2-5.4); White Blood Count 1.05 K/uL (4.8-10.8)
[2021-03-21 18:31] LABS: Appearance Urine Clear (Clear); Bacteria Urine Automated 4+ (Negative); Bilirubin Urine Negative (Negative); Blood Urine Negative (Negative); Color Urine Yellow; Glucose Urine UA Negative (Negative); Ketones Urine Negative (Negative); Leukocyte Esterase Urine 1+ (Negative); Nitrite Urine Negative (Negative); RBC Urine Automated 0-4 /hpf (0-4); Specific Gravity Urine 1.016 (1.000-1.030); Urobilinogen Urine Negative (Negative); pH Urine >= 9.0 (4.5-7.5)
--- NOTE | 2021-03-21 18:36 | XRay Report ---
SINGLE VIEW CHEST CLINICAL HISTORY: Generalized weakness. Lung cancer. FINDINGS: An AP, portable, upright chest radiograph is compared to study dated 02/02/2021 and correlat ed with chest CT dated 05/01/2020. The examination is degraded by portable technique and patient rotat ion. A right internal jugular central venous infusion port is unchanged in position. The cardiomedias tinal silhouette is unremarkable noting atherosclerotic calcification of the thoracic aorta. Emphysem a and chronic interstitial thickening is similar to previous. There are foci of bibasilar scarring/at electasis. Fibrotic change is again seen in the left perihilar region with elevation of the left chapo diaphragm. There is no evidence of superimposed airspace consolidation or large pleural effusion. No pneumothorax is seen. The skeletal structures are osteopenic. The bony thorax is grossly intact. IMPRESSION: 1. Advanced emphysematous change. 2. There is increasing fibrotic change in the perihilar left lung which could represent tumor/adenopa thy versus treatment related change. 3. No airspace consolidation is seen typical for pneumonia and there is no large pleural effusion. ACT 112: Negative or not required by law. Electronically signed by: Tan Ruiz M.D. 03/21/2021 6:35 PM
[2021-03-21 18:47] LABS: Protein Urine Trace (Negative)
[2021-03-21 18:52] LABS: Platelet Count 77 K/uL (130-400)
[2021-03-21 18:53] LABS: Hypochromasia Present; Monocytes # (auto) 0.18 K/uL (0.11-0.59); Monocytes % (auto) 17.1 %; Neutrophils # (auto) 0.67 K/uL (1.4-6.5); Neutrophils % (auto) 63.9 %; Ovalocytes 1+; Platelet Estimate Decreased (Normal); Polychromasia 1+
[2021-03-21] MEDS ORDERED: PIPERACILL/TAZOBAC CONSULT ACTIVE PRN (19:03)
[2021-03-21] MEDS ORDERED: PIPERACILLIN/TAZOBACTAM 4.5 GM/120 ML BAG IV ONE (19:03)
[2021-03-21 19:12] LABS: Alanine Aminotransferase 20 U/L (12-78); Albumin Globulin Ratio 0.9 (0.9-2); Albumin Level 3.5 gm/dl (3.4-5.0); Alkaline Phosphatase 94 U/L (45-117); Aspartate Aminotransferase 14 U/L (15-37); BUN Creatinine Ratio 13.5 (10-20); Bilirubin,Total 0.4 mg/dl (0.2-1); Blood Urea Nitrogen 6 mg/dl (7-18); Calcium 8.7 mg/dl (8.5-10.1); Carbon Dioxide 23 mmol/L (21-32); Chloride 90 mmol/L (98-107); Creatine Kinase 35 U/L (26-192); Creatinine Clr Calc Pharmacy 112.1 ml/min; Est GFR (African American) 123.6 ml/min; Est GFR (Non-African American) 106.6 ml/min; Globulin 3.7 gm/dl (2.5-4.0); Glucose 114 mg/dl (70-99); Magnesium 1.7 mg/dl (1.8-2.4); Potassium 4.2 mmol/L (3.5-5.1); Sodium 120 mmol/L (136-145); Total Protein 7.2 gm/dl (6.4-8.2); Troponin I < 0.015 ng/ml (0-0.045)
[2021-03-21] MEDS ORDERED: MAGNESIUM SULFATE / D5W 1 GM/100 ML BAG IV ONE (20:51)
--- NOTE | 2021-03-21 21:26 | CT Scan Report ---
CT SCAN OF THE BRAIN WITHOUT IV CONTRAST CLINICAL HISTORY: Change in mental status. COMPARISON STUDY: CT of the brain dated 02/04/2021. TECHNIQUE: Unenhanced axial CT scan of the brain is performed from the vertex to the skull base. A do se lowering technique was utilized adhering to the principles of ALARA. CT DOSE: 609.72 mGycm FINDINGS: Brain parenchyma: There are age-related involutional changes noting advanced confluent subcortical a nd periventricular microangiopathic change. There is no hemorrhage, mass effect, or evidence of acute territorial ischemia by CT criteria. A chronic lacunar infarct is noted in the left brambila radiata. Leone-white matter differentiation is preserved. A tiny hyperdense focus along the high right posterio r midline falx is unchanged. No extra-axial fluid collection is seen. Ventricles, sulci, cisterns: Prominent secondary to involutional change. Intracranial vasculature: There is atherosclerotic calcification of the cavernous carotid and vertebr al arteries. Calvarium: Unremarkable. Sinuses and mastoids: The paranasal sinuses are clear. The mastoid air cells are well pneumatized. Orbits: The bony orbits are grossly intact. There are bilateral ocular lens implants. IMPRESSION: There is no hemorrhage, mass effect, or evidence of acute territorial ischemia by CT kaia alvarado. ACT 112: Negative or not required by law. Electronically signed by: Tan Ruiz M.D. 03/21/2021 9:25 PM
[2021-03-21 21:36] LABS: Reticulocyte % 2.1 % (0.5-2.0); Reticulocytes # 0.08 10^6/uL (0.02-0.10)
--- NOTE | 2021-03-21 23:12 | History & Physical Report ---
Date of Service March 21, 2021 Assessment & Plan (1) Encephalopathy: Plan: Multifactorial : Sepsis (complicated UTI, possible aspiration pneumonitis, history esophageal dysmotility as per records) Chronic hyponatremia, hx SIADH Home meds contributory hx CAD status post stent hx CVA PAF on Eliquis, patient NSR, rate slightly elevated secondary to illness hx recurrent metastatic SCLC sp chemoradiation chronic respiratory failure secondary to COPD, RAKESH on CPAP prediabetes, hemoglobin A1c of 6.22 July 2020 Pancytopenia secondary to chemotherapy schizoaffective/mood disorder hypothyroidism, euthyroid as of today's TSH past tobacco abuse Medical telemetry CS, Zosyn Aspiration precautions Hold bupropion until patient mentation back to baseline Nephrology consult Re: Hyponatremia; Hold hold home Lasix for now, fluid restriction 1.5 L DVT prophylaxis. Eliquis Full code as per brother/medical POA, Mr. Andrade Files, contact #[phone]. Text document was generated using [employer] voice recognition software. It may contain grammatical or spelling errors. Kindly contact undersigned for clarification of any documentation item in question. History of Present Illness Chief Complaint: Lethargy as per records Primary Care Provider: Dmitry Roland DO History obtained from patient, family, and records. Limited history from patient secondary to lethargy. Medical history significant for CAD status post stent, A. fib on Eliquis, recurrent metastatic SCLC sp chemoradiation,hx CVA, chronic respiratory failure secondary to COPD, RAKESH on CPAP, chronic hyponatremia, SIADH, prediabetes, chronic anemia (baseline hemoglobin 10-11), schizoaffective/mood disorder, hypothyroidism, prediabetes, history esophageal dysmotility as per records, past tobacco abuse. Last confinement January 2021 for hyponatremia secondary to SIADH. Patient looks different yesterday as per brother. Not talking a lot. Somewhat confused and lethargic. Cough symptoms noted at the ER by staff. Patient given Zosyn at the ER for sepsis. Medical History as above Surgical History : Breast biopsy, bunion surgery, dental surgery, gynecologic procedure, sebaceous cyst removal Family History : Breast cancer, COPD Personal/Social history : Past tobacco abuse, occasional EtOH intake, disabled, lives with son Allergies Allergy/AdvReac Type Severity Reaction Status Date / Time Beta-Blockers Allergy Severe Confusion; Verified 03/21/21 19:12 (Beta-Adrenergic Bloc Diarrhea; Rash tetracycline Allergy Intermediate RASH; Verified 03/21/21 19:12 "MYCINS" ALLERGY clindamycin Allergy Unknown "MYCINS" Verified 03/21/21 19:12 ALLERGY diltiazem Allergy Unknown ? Verified 03/21/21 19:12 Sulfa (Sulfonamide Allergy Unknown Unknown Verified 03/21/21 19:12 Antibiotics) sumatriptan Allergy Unknown "TRIPTANS" Verified 03/21/21 19:12 ALLERGY morphine Allergy Unknown Verified 03/21/21 19:12 codeine AdvReac Severe SYNCOPE Verified 03/21/21 19:12 PER PATIENT oxycodone AdvReac Mild GI UPSET Verified 03/21/21 19:12 Home Medications Medication Instructions Recorded Confirmed Type apixaban 5 mg tablet 5 mg PO BID #180 tab 03/14/19 03/21/21 History flecainide 100 mg tablet 100 mg PO BID #180 tab 03/14/19 03/21/21 History montelukast 10 mg tablet 10 mg PO HS tab 03/14/19 03/21/21 History omeprazole 20 mg capsule,delayed 20 mg PO BID cap 03/14/19 03/21/21 History release albuterol sulfate 90 mcg/actuation 2 puffs INH Q6H PRN 03/27/19 03/21/21 History aerosol inhaler (Ventolin HFA) sennosides 8.6 mg-docusate sodium 1 tab PO QAM PRN #30 tab 11/12/19 03/21/21 Rx 50 mg tablet (Senokot-S) Oxygen Home #1 ea 11/20/19 02/02/21 History calcium carbonate 500 mg calcium 500 mg PO DAILY 11/20/19 03/21/21 History (1,250 mg) tablet (Calcium 500) liothyronine 5 mcg tablet (Cytomel) 5 mcg PO BID tab 11/20/19 03/21/21 History magnesium oxide 400 mg PO DAILY 11/20/19 03/21/21 History metformin 1,000 mg tablet 1,000 mg PO BID 11/20/19 03/21/21 History multivitamin 1 tab PO DAILY 11/20/19 03/21/21 History verapamil 240 mg 24 hr 240 mg PO DAILY 11/20/19 03/21/21 History capsule,extended release fluticasone propionate 50 2 sprays INTNAS DAILY PRN 11/22/19 03/21/21 History mcg/actuation nasal spray,suspension (Flonase Allergy Relief) thiothixene 5 mg capsule 5 mg PO DAILY cap 11/22/19 03/21/21 History pravastatin 80 mg tablet 80 mg PO DAILY 07/21/20 03/21/21 History aspirin 81 mg tablet,delayed 162 mg PO HS #30 tab 07/22/20 03/21/21 Rx release fluticasone 500 mcg-salmeterol 50 1 inh INHALATION Q12H 10/01/20 03/21/21 History mcg/dose blistr powdr for inhalation (Wixela Inhub) lisinopril 10 mg tablet 10 mg PO BID #60 tab 10/05/20 03/21/21 Rx sodium chloride 1,000 mg soluble 1,000 mg PO BID 02/02/21 03/21/21 History tablet furosemide 20 mg tablet 20 mg PO BID #60 tab 02/05/21 03/21/21 Rx ondansetron HCl 8 mg tablet 8 mg PO TID PRN #30 tab 02/05/21 03/21/21 Rx urea 15 gram oral powder packet 1 packet PO BID #60 ea 02/05/21 03/21/21 Rx bupropion HCl 200 mg tablet,12 hr 200 mg PO DAILY 03/21/21 03/21/21 History sustained-release levothyroxine 125 mcg tablet 125 mcg PO DAILYBB 03/21/21 03/21/21 History Past Med/Surg History Medical History Abnormal mammography CAD (coronary artery disease) Chronic hyponatremia Common migraine without aura Contusion of left hip Diaphragmatic hernia Diverticulosis of colon Dizziness DS (disseminated sclerosis) Dyslipidemia Dysmetabolic syndrome X Eczema Encounter for pre-operative examination GERD (gastroesophageal reflux disease) Hearing loss HTN (hypertension) Hyponatremia Memory loss Migraines Neuropathy Non-occlusive coronary artery disease Old anteroseptal myocardial infarction (2004) Osteoporosis, unspecified Presence of stent in LAD coronary artery (2004) Schizoaffective disorder SIADH (syndrome of inappropriate ADH production) Small cell carcinoma of lung Unspecified osteomyelitis, ankle and foot Surgical History History of bunionectomy History of colonoscopy History of coronary angioplasty Stent by Dr. Bryan History of tubal ligation History of wisdom tooth extraction Family History Father , 56yo Hypertension Liver cancer Migraines Mother , at 65yo Breast cancer Diabetes Hypertension Emphysema lung Brother No problems noted. Sister Diabetes Liver cancer H/O liver transplant Hypertension Son No problems noted. Son Prediabetes Social History Smoking Status: Former smoker Tobacco Type: Cigarettes Cigarettes Per Day: 2-2.5 packs per day; Second Hand Exposure: No; Hx Alcohol Use: No Hx Substance Use: No Preferred Language: B[place] Communication Ability: Effective Visual Impairment: No Limitations Hearing Ability: Normal Elephant Tamer Required: No Beliefs That Will Affect Care: None marital status: Current Living Situation: Alone Current Living Situation Comment: House no steps into home, into bedroom or into bathroom current occupational status: unemployed current occupation: On disability How many Children do You have: 2 Other Information That Helps Us Care for You: No Feels Safe at Home: Yes Safety Concerns: Feels Safe At This Time Diet Comment: High protein diet, fluid restriction, diabetic diet; caffeine: No during the past year weight has: decreased > 10 lbs Assistive Devices: Cane Review of Systems Review of Systems: Could not be reliably obtained Physical Exam Physical Exam: GENERAL: uncomfortable, incoherent, occasional coughing, no respiratory distress SKIN: Pallor, warm HEENT: Sparse hair, pale palpebral conjunctivae, no ptosis, dry buccal mucosa NECK : Supple, no tenderness CHEST : Decreased breath sounds, no tenderness HEART : Tachycardic, no obvious murmurs ABDOMEN: Some distention, nontender RECTAL : Intact sphincter, brown stool (FOBT negative) EXTREMITIES : No LE swelling/tenderness, no other conspicuous deformities noted NEUROLOGIC : Incoherent, no facial asymmetry, gait and stance not assessed Results & Data Results & Data ([facility]) Vital Signs (Past 12 Hours) Vital Signs Temp Pulse Resp BP Pulse Ox 03/21/21 21:30 104 H 22 166/87 H 96 03/21/21 21:00 105 H 25 H 148/87 H 94 03/21/21 20:30 101 H 20 157/93 H 94 03/21/21 20:00 107 H 23 161/105 H 92 03/21/21 19:30 108 H 23 172/96 H 99 03/21/21 19:00 103 H 24 159/104 H 99 03/21/21 18:30 101 H 23 161/97 H 98 03/21/21 18:24 100 H 23 149/99 H 99 03/21/21 17:37 103 H 26 H 100 03/21/21 17:34 100 03/21/21 17:11 37.4 C 100 H 27 H 158/109 H 100 Laboratory Results Laboratory Results WBC 1.05 K/uL (4.8-10.8) L 03/21/21 18:05 RBC 3.78 M/uL (4.2-5.4) L 03/21/21 18:05 Hgb 10.1 g/dL (12.0-16.0) L 03/21/21 18:05 Hct 29.1 % (37-47) L 03/21/21 18:05 MCV 77.0 fL (80-100) L 03/21/21 18:05 MCH 26.7 pg (25-34) 03/21/21 18:05 MCHC 34.7 g/dL (32-36) 03/21/21 18:05 RDW Std Deviation 52.4 fL (36.4-46.3) H 03/21/21 18:05 RDW Coeff of [place]pe 20.6 % (11.5-14.5) H 03/21/21 18:05 Plt Count 77 K/uL (130-400) L 03/21/21 18:05 MPV 9.0 fL (7.4-10.4) 03/21/21 18:05 Immature Gran % (Auto) 0.0 % 03/21/21 18:05 Neut % (Auto) 63.9 % 03/21/21 18:05 Lymph % (Auto) 19.0 % 03/21/21 18:05 [place] % (Auto) 17.1 % 03/21/21 18:05 Eos % (Auto) 0.0 % 03/21/21 18:05 Baso % (Auto) 0.0 % 03/21/21 18:05 Reticulocyte % (Auto) 2.1 % (0.5-2.0) H 03/21/21 18:05 Neut # (Auto) 0.67 K/uL (1.4-6.5) L* 03/21/21 18:05 Lymph # (Auto) 0.20 K/uL (1.2-3.4) L 03/21/21 18:05 [place] # (Auto) 0.18 K/uL (0.11-0.59) 03/21/21 18:05 Eos # (Auto) 0.00 K/uL (0-0.5) 03/21/21 18:05 Baso # (Auto) 0.00 K/uL (0-0.2) 03/21/21 18:05 Reticulocyte # 0.08 10^6/uL (0.02-0.10) 03/21/21 18:05 Immature Gran # (Auto) 0.00 K/uL (0.00-0.02) 03/21/21 18:05 Platelet Estimate Decreased (Normal) L 03/21/21 18:05 Polychromasia 1+ 03/21/21 18:05 Hypochromasia Present 03/21/21 18:05 Ovalocytes 1+ 03/21/21 18:05 Sodium 121 mmol/L (136-145) L 03/21/21 22:08 Potassium 4.2 mmol/L (3.5-5.1) 03/21/21 18:05 Chloride 90 mmol/L (98-107) L 03/21/21 18:05 Carbon Dioxide 23 mmol/L (21-32) 03/21/21 18:05 Anion Gap 7.0 (3-11) 03/21/21 18:05 BUN 6 mg/dl (7-18) L 03/21/21 18:05 Creatinine 0.46 mg/dl (0.6-1.2) L 03/21/21 18:05 Est Cr Clr Drug Dosing 112.1 ml/min 03/21/21 18:05 Est GFR ( Amer) 123.6 ml/min 03/21/21 18:05 Est GFR (Non-Af Amer) 106.6 ml/min 03/21/21 18:05 BUN/Creatinine Ratio 13.5 (10-20) 03/21/21 18:05 Glucose 114 mg/dl (70-99) H 03/21/21 18:05 Osmolality 250 mOsm/kg (280-300) L 03/21/21 18:05 Lactate 0.7 mmol/L (0.4-2.0) 03/21/21 22:08 Calcium 8.7 mg/dl (8.5-10.1) 03/21/21 18:05 Magnesium 1.7 mg/dl (1.8-2.4) L 03/21/21 18:05 Iron 22 mcg/dl (35-150) L 03/21/21 22:08 TIBC 337 mcg/dl (250-450) 03/21/21 22:08 Transferrin 235 mg/dl (200-360) 03/21/21 22:08 Ferritin 119.0 ng/ml (8-388) 03/21/21 22:08 Total Bilirubin 0.4 mg/dl (0.2-1) 03/21/21 18:05 AST 14 U/L (15-37) L 03/21/21 18:05 ALT 20 U/L (12-78) 03/21/21 18:05 Alkaline Phosphatase 94 U/L (45-117) 03/21/21 18:05 Ammonia < 10.0 umol/L (11-32) L 03/21/21 22:08 Total Creatine Kinase 35 U/L (26-192) 03/21/21 18:05 Troponin I < 0.015 ng/ml (0-0.045) 03/21/21 18:05 Total Protein 7.2 gm/dl (6.4-8.2) 03/21/21 18:05 Albumin 3.5 gm/dl (3.4-5.0) 03/21/21 18:05 Globulin 3.7 gm/dl (2.5-4.0) 03/21/21 18:05 Albumin/Globulin Ratio 0.9 (0.9-2) 03/21/21 18:05 TSH 1.090 uIu/ml (0.300-4.500) 03/21/21 18:05 Urine Color Yellow 03/21/21 18:05 Urine Appearance Clear (Clear) 03/21/21 18:05 Urine pH >= 9.0 (4.5-7.5) H 03/21/21 18:05 Ur Specific [place] 1.016 (1.000-1.030) 03/21/21 18:05 Urine Protein Trace (Negative) H 03/21/21 18:05 Urine Glucose (UA) Negative (Negative) 03/21/21 18:05 Urine Ketones Negative (Negative) 03/21/21 18:05 Urine Blood Negative (Negative) 03/21/21 18:05 Urine Nitrite Negative (Negative) 03/21/21 18:05 Urine Bilirubin Negative (Negative) 03/21/21 18:05 Urine Urobilinogen Negative (Negative) 03/21/21 18:05 Ur Leukocyte Esterase 1+ (Negative) H 03/21/21 18:05 Urine WBC (Auto) 10-30 /hpf (0-5) H 03/21/21 18:05 Urine RBC (Auto) 0-4 /hpf (0-4) 03/21/21 18:05 U Hyaline Cast (Auto) 1-5 /lpf (0-5) 03/21/21 18:05 U Epithel Cells (Auto) 5-10 /lpf (0-5) H 03/21/21 18:05 Urine Bacteria (Auto) 4+ (Negative) H 03/21/21 18:05 COVID-19 Eval Order Covid19 at [facility] 03/21/21 18:08 SARS-CoV-2 (PCR) NEGATIVE (Negative) 03/21/21 18:08 Blood Type O Positive 03/21/21 22:08 Antibody Screen NEGATIVE 03/21/21 22:[address] 03/21/21 17:32 CT SCAN OF THE BRAIN WITHOUT IV CONTRAST CLINICAL HISTORY: Change in mental status. COMPARISON STUDY: CT of the brain dated 02/04/2021. TECHNIQUE: Unenhanced axial CT scan of the brain is performed from the vertex to the skull base. A dose lowering technique was utilized adhering to the principles of ALARA. CT DOSE: 609.72 mGycm FINDINGS: Brain parenchyma: There are age-related involutional changes noting advanced confluent subcortical and periventricular microangiopathic change. There is no hemorrhage, mass effect, or evidence of acute territorial ischemia by CT criteria. A chronic lacunar infarct is noted in the left brambila radiata. [place]-white matter differentiation is preserved. A tiny hyperdense focus along the high right posterior midline falx is unchanged. No extra-axial fluid collection is seen. Ventricles, sulci, cisterns: Prominent secondary to involutional change. Intracranial vasculature: There is atherosclerotic calcification of the cavernous carotid and vertebral arteries. Calvarium: Unremarkable. Sinuses and mastoids: The paranasal sinuses are clear. The mastoid air cells are well pneumatized. Orbits: The bony orbits are grossly intact. There are bilateral ocular lens implants. IMPRESSION: There is no hemorrhage, mass effect, or evidence of acute territorial ischemia by CT criteria. ACT 112: Negative or not required by law. Electronically signed by: Tan Ruiz M.D. 03/21/2021 9:25 PM Chest X-Ray 03/21/21 17:34 SINGLE VIEW CHEST CLINICAL HISTORY: Generalized weakness. Lung cancer. FINDINGS: An AP, portable, upright chest radiograph is compared to study dated 02/02/2021 and correlated with chest CT dated 05/01/2020. The examination is degraded by portable technique and patient rotation. A right internal jugular central venous infusion port is unchanged in position. The cardiomediastinal silhouette is unremarkable noting atherosclerotic calcification of the thoracic aorta. Emphysema and chronic interstitial thickening is similar to previous. Th ere are foci of bibasilar scarring/atelectasis. Fibrotic change is again seen in the left perihilar region with elevation of the left hemidiaphragm. There is no evidence of superimposed airspace consolidation or large pleural effusion. No pneumothorax is seen. The skeletal structures are osteopenic. The bony thorax is grossly intact. IMPRESSION: 1. Advanced emphysematous change. 2. There is increasing fibrotic change in the perihilar left lung which could represent tumor/adenopathy versus treatment related change. 3. No airspace consolidation is seen typical for pneumonia and there is no large pleural effusion. ACT 112: Negative or not required by law. Electronically signed by: Tan Ruiz M.D. 03/21/2021 6:35 PM Diagnostic Findings EKG as per my interpretation rate 105, sinus tachycardia, normal axis, no ischemia
[2021-03-21] MEDS ORDERED: VERAPAMIL HCL 2.5 MG/ML 2 ML VIAL IV STA (23:15)
[2021-03-21 23:38] LABS: Folate (Folic Acid) > 20.00 ng/ml (>5.38); Vitamin B12 471 pg/ml (193-986)
[2021-03-22] MEDS ORDERED: IPRATROPIUM BROMIDE NEB SOLN 0.02% 2.5 ML VIAL INH PRN (03:44)
[2021-03-22] MEDS ORDERED: XOPENEX/ATROVENT 1.25mg/0.5MG NEB COMBO NEB PRN (03:44)
[2021-03-22] MEDS ORDERED: DOCUSATE SODIUM/SENNA 50/8.6MG TAB PO PRN (03:44)
[2021-03-22] MEDS ORDERED: ACETAMINOPHEN 325 MG TAB PO PRN (03:44)
[2021-03-22] MEDS ORDERED: PROMETHAZINE HCL 12.5 MG in SODIUM CHLORIDE 0.9% 50 ML IV PRN (03:44)
[2021-03-22] MEDS ORDERED: LEVALBUTEROL 1.25MG/0.5ML NEB INH PRN (03:44)
[2021-03-22] MEDS ORDERED: lisinopril 10 MG TAB PO SCH (03:44)
[2021-03-22] MEDS ORDERED: APIXABAN 5 MG TABLET PO SCH (04:00)
[2021-03-22] MEDS ORDERED: FLECAINIDE ACETATE 100 MG TABLET PO SCH (04:00)
[2021-03-22] MEDS: PIPERACILLIN/TAZOBACTAM 3.375 GM in DEXTROSE 5% 100 ML IV SCH ×3 (05:04→19:52)
[2021-03-22] MEDS: LEVOTHYROXINE SODIUM 125 MCG TABLET PO SCH (05:04)
[2021-03-22] MEDS ORDERED: Nursing to Pharmacy Communication SCH (05:30)
[2021-03-22] MEDS: SODIUM CHLORIDE 1 GM TABLET PO SCH ×2 (08:31→19:52)
[2021-03-22] MEDS: THIOTHIXENE 5 MG CAP PO SCH (08:31)
[2021-03-22] MEDS: MAGNESIUM OXIDE 400 MG TAB PO SCH (08:31)
[2021-03-22] MEDS: VERAPAMIL HCL 240 MG TABCR PO SCH (08:31)
[2021-03-22] MEDS: MULTIVITAMIN TAB PO SCH (08:32)
[2021-03-22] MEDS: LIOTHYRONINE SODIUM 5 MCG TAB PO SCH ×2 (08:32→19:53)
[2021-03-22] MEDS: PRAVASTATIN SOD 40 MG TAB PO SCH (08:32)
[2021-03-22] MEDS: FLUTICASONE/VILANTEROL 200/25MCG 14 PUFFS/INHALER INH SCH (08:32)
[2021-03-22] MEDS: UREA (UREA-NA) 15 GM PACK PO SCH ×2 (08:32→20:34)
[2021-03-22] MEDS: PANTOprazole 40 MG TAB PO SCH ×2 (08:32→19:53)
--- NOTE | 2021-03-22 09:38 | Electrocardiogram Report ---
Test Reason : Blood Pressure : / mmHG Vent. Rate : 101 BPM Atrial Rate : 101 BPM P-R Int : 158 ms QRS Dur : 086 ms QT Int : 348 ms P-R-T Axes : 073 082 079 degrees QTc Int : 451 ms Poor data quality, interpretation may be adversely affected Sinus tachycardia Otherwise normal ECG When compared with ECG of 02-FEB-2021 13:18, No significant change was found Confirmed by Presley Bryan ([id number]) on 03/22/2021 9:37:27 AM Referred By: REFERRED SELF Confirmed By:Presley Bryan
[2021-03-22 10:06] LABS: Hematocrit (blood only) 27.5 % (37-47); Hemoglobin 9.4 g/dL (12.0-16.0); Mean Corpuscular Hgb Conc 34.2 g/dL (32-36); Mean Platelet Volume 9.4 fL (7.4-10.4); Platelet Count 67 K/uL (130-400); RDW Coefficient of Variation 20.9 % (11.5-14.5); RDW Standard Deviation 55.7 fL (36.4-46.3); Red Blood Count 3.48 M/uL (4.2-5.4); White Blood Count 0.85 K/uL (4.8-10.8)
[2021-03-22 10:31] LABS: Lymphocytes # (auto) 0.16 K/uL (1.2-3.4); Lymphocytes % (auto) 18.8 %; Monocytes # (auto) 0.15 K/uL (0.11-0.59); Monocytes % (auto) 17.6 %; Neutrophils # (auto) 0.54 K/uL (1.4-6.5); Neutrophils % (auto) 63.6 %; Ovalocytes 1+
[2021-03-22 10:43] LABS: BUN Creatinine Ratio 52.8 (10-20); Calcium 8.4 mg/dl (8.5-10.1); Est GFR (Non-African American) 104.4 ml/min; Potassium 3.6 mmol/L (3.5-5.1)
--- NOTE | 2021-03-22 10:54 | Nephrology Consultation ---
Date of Consultation March 22, 2021 Assessment & Plan (1) Acute hyponatremia: Known SIADH, with fluctuating Na ( most recent 133 as per EMR) - She was supposed to be on 1.5 lit FR with 1 gm BID salt tabs( was prescribed urea by Dr Merino , but was changed to salt tablet as she could no afford it), not sure how adhered she was with this.She had an element of volume depletion on presentation and was give 1 lit Ns , do not give any more IV fluids. Max sNa for tomorrow am is 127 ( 10. am) - FR to 1.5L -recheck Na 6 hourly, Use D5w If over corrects. -cont urea, salt tab BID - previous note she is allergic to lasix , but the prescription has lasix on it, Need to clarify this with patinet and her son. (2) Altered mental status: Multifactorial : Sepsis (complicated UTI, possible aspiration pneumonitis, history esophageal dysmotility as per records) Home meds contributory. - If her confusion is 2/ hyponatremia, this should resolve by a sodium rise of 6 m mol from presentation, If the symptoms continue , it is unlikey that the confusion is related to hyponatremia. History of Present Illness Reason for Consultation: Hyponatremia Attending Physician: Miguelito Bonilla MD History of Present Illness Limited history from the [facility] due to confusion. Consult as per previous notes. 60 year old,with known hx of SIADH ,FR as OP, hypothyroid, HTN, PAF on Eliquis and flecainide, chronic respiratory failure secondary to emphysema on 2-3 L of O2, RAKESH on CPAP, history of CVA without residual deficit, CAD, prediabetes, depression, schizoaffective disorder, PTSD. She was admitted yesterday as she was more somnolant , confused as per her brother. Not sure if she was adhering to fluid restriction and salt tablets. She got 1 lit of NS in ER. She was found to have sNa 121 (10.00 pm)yesterday after presenting with confusion.Renal functions were normal. Allergies Allergy/AdvReac Type Severity Reaction Status Date / Time Beta-Blockers Allergy Severe Confusion; Verified 03/21/21 19:12 (Beta-Adrenergic Bloc Diarrhea; Rash tetracycline Allergy Intermediate RASH; Verified 03/21/21 19:12 "MYCINS" ALLERGY clindamycin Allergy Unknown "MYCINS" Verified 03/21/21 19:12 ALLERGY diltiazem Allergy Unknown ? Verified 03/21/21 19:12 Sulfa (Sulfonamide Allergy Unknown Unknown Verified 03/21/21 19:12 Antibiotics) sumatriptan Allergy Unknown "TRIPTANS" Verified 03/21/21 19:12 ALLERGY morphine Allergy Unknown Verified 03/21/21 19:12 codeine AdvReac Severe SYNCOPE Verified 03/21/21 19:12 PER PATIENT oxycodone AdvReac Mild GI UPSET Verified 03/21/21 19:12 Home Medications Medication Instructions Recorded Confirmed Type apixaban 5 mg tablet 5 mg PO BID #180 tab 03/14/19 03/21/21 History flecainide 100 mg tablet 100 mg PO BID #180 tab 03/14/19 03/21/21 History montelukast 10 mg tablet 10 mg PO HS tab 03/14/19 03/21/21 History omeprazole 20 mg capsule,delayed 20 mg PO BID cap 03/14/19 03/21/21 History release albuterol sulfate 90 mcg/actuation 2 puffs INH Q6H PRN 03/27/19 03/21/21 History aerosol inhaler (Ventolin HFA) sennosides 8.6 mg-docusate sodium 1 tab PO QAM PRN #30 tab 11/12/19 03/21/21 Rx 50 mg tablet (Senokot-S) Oxygen Home #1 ea 11/20/19 02/02/21 History calcium carbonate 500 mg calcium 500 mg PO DAILY 11/20/19 03/21/21 History (1,250 mg) tablet (Calcium 500) liothyronine 5 mcg tablet (Cytomel) 5 mcg PO BID tab 11/20/19 03/21/21 History magnesium oxide 400 mg PO DAILY 11/20/19 03/21/21 History metformin 1,000 mg tablet 1,000 mg PO BID 11/20/19 03/21/21 History multivitamin 1 tab PO DAILY 11/20/19 03/21/21 History verapamil 240 mg 24 hr 240 mg PO DAILY 11/20/19 03/21/21 History capsule,extended release fluticasone propionate 50 2 sprays INTNAS DAILY PRN 11/22/19 03/21/21 History mcg/actuation nasal spray,suspension (Flonase Allergy Relief) thiothixene 5 mg capsule 5 mg PO DAILY cap 11/22/19 03/21/21 History pravastatin 80 mg tablet 80 mg PO DAILY 07/21/20 03/21/21 History aspirin 81 mg tablet,delayed 162 mg PO HS #30 tab 07/22/20 03/21/21 Rx release fluticasone 500 mcg-salmeterol 50 1 inh INHALATION Q12H 10/01/20 03/21/21 History mcg/dose blistr powdr for inhalation (Wixela Inhub) lisinopril 10 mg tablet 10 mg PO BID #60 tab 10/05/20 03/21/21 Rx sodium chloride 1,000 mg soluble 1,000 mg PO BID 02/02/21 03/21/21 History tablet furosemide 20 mg tablet 20 mg PO BID #60 tab 02/05/21 03/21/21 Rx ondansetron HCl 8 mg tablet 8 mg PO TID PRN #30 tab 02/05/21 03/21/21 Rx urea 15 gram oral powder packet 1 packet PO BID #60 ea 02/05/21 03/21/21 Rx bupropion HCl 200 mg tablet,12 hr 200 mg PO DAILY 03/21/21 03/21/21 History sustained-release levothyroxine 125 mcg tablet 125 mcg PO DAILYBB 03/21/21 03/21/21 History Patient History Medical History Abnormal mammography CAD (coronary artery disease) Chronic hyponatremia Common migraine without aura Contusion of left hip Diaphragmatic hernia Diverticulosis of colon Dizziness DS (disseminated sclerosis) Dyslipidemia Dysmetabolic syndrome X Eczema Encounter for pre-operative examination GERD (gastroesophageal reflux disease) Hearing loss HTN (hypertension) Hyponatremia Memory loss Migraines Neuropathy Non-occlusive coronary artery disease Old anteroseptal myocardial infarction (2004) Osteoporosis, unspecified Presence of stent in LAD coronary artery (2004) Schizoaffective disorder SIADH (syndrome of inappropriate ADH production) Small cell carcinoma of lung Unspecified osteomyelitis, ankle and foot Surgical History History of bunionectomy History of colonoscopy History of coronary angioplasty Stent by Dr. Bryan History of tubal ligation History of wisdom tooth extraction Family History Father , 56yo Hypertension Liver cancer Migraines Mother , at 65yo Breast cancer Diabetes Hypertension Emphysema lung Brother No problems noted. Sister Diabetes Liver cancer H/O liver transplant Hypertension Son No problems noted. Son Prediabetes Social History Smoking Status: Former smoker Tobacco Type: Cigarettes Cigarettes Per Day: 2-2.5 packs per day; Second Hand Exposure: No; Hx Alcohol Use: No Hx Substance Use: No Preferred Language: Khmer Communication Ability: Effective Visual Impairment: No Limitations Hearing Ability: Normal Hall Coordinator Required: No Beliefs That Will Affect Care: None marital status: Current Living Situation: Alone Current Living Situation Comment: House no steps into home, into bedroom or into bathroom current occupational status: unemployed current occupation: On disability How many Children do You have: 2 Other Information That Helps Us Care for You: No Feels Safe at Home: Yes Safety Concerns: Feels Safe At This Time Diet Comment: High protein diet, fluid restriction, diabetic diet; caffeine: No during the past year weight has: decreased > 10 lbs Assistive Devices: Cane Review of Systems Review of Systems: Unobtainable due to cognitive status Physical Exam Physical Exam: General exam: apperas comfortable, but confused. Neck: No JVD, neck is supple trachea is midline Respiratory system: Clear breath sounds bilaterally. Gastrointestinal: Abdomen is soft, non distended, non tender, bowel sounds are present CVS: Regular rate and rhythm. No murmurs, rubs or gallops Musculoskeletal: No joint or muscle tenderness Extremities: Non tender, no edema, peripheral pulses are present Neuro: Confused Results & Data ([facility]) Vital Signs (Past 12 Hours) Vital Signs Temp Pulse Pulse Resp BP BP Pulse Ox 03/22/21 10:00 91 H 03/22/21 07:58 36.6 C 93 H 19 136/78 96 03/22/21 03:44 36.7 C 97 H 97 H 18 137/85 99 03/22/21 03:15 92 H 20 140/77 03/22/21 03:00 91 H 20 133/92 03/22/21 02:45 96 H 20 133/87 03/22/21 02:30 95 H 27 H 143/87 H 03/22/21 02:15 90 19 149/93 H 99 03/22/21 02:00 90 21 148/82 H 99 03/22/21 01:45 91 H 19 152/93 H 100 03/22/21 01:30 89 19 132/78 100 03/22/21 01:15 91 H 19 151/104 H 99 03/22/21 01:00 94 H 20 146/97 H 99 03/22/21 00:45 96 H 22 156/85 H 98 03/22/21 00:30 97 H 21 143/89 H 100 03/22/21 00:15 98 H 21 143/94 H 100 03/22/21 00:00 100 H 23 149/74 H 100 03/21/21 23:30 99 H 21 180/93 H 100 03/21/21 23:00 102 H 23 166/94 H 91 Pulse Ox 03/22/21 10:00 03/22/21 07:58 03/22/21 03:44 99 03/22/21 03:15 03/22/21 03:00 03/22/21 02:45 03/22/21 02:30 03/22/21 02:15 03/22/21 02:00 03/22/21 01:45 03/22/21 01:30 03/22/21 01:15 03/22/21 01:00 03/22/21 00:45 03/22/21 00:30 03/22/21 00:15 03/22/21 00:00 03/21/21 23:30 03/21/21 23:00 Laboratory Results 03/22/21 09:22 03/22/21 09:22 (1) Altered mental status Altered mental status type: disorientation Qualified Code(s): R41.0 - Disorientation, unspecified
[2021-03-22 17:33] LABS: BUN Creatinine Ratio 27.1 (10-20); Calcium 8.2 mg/dl (8.5-10.1); Est GFR (African American) 118.7 ml/min; Est GFR (Non-African American) 102.4 ml/min
[2021-03-22] MEDS: APIXABAN 5 MG TABLET PO SCH (19:53)
[2021-03-22] MEDS: FLECAINIDE ACETATE 100 MG TABLET PO SCH (19:53)
[2021-03-22] MEDS: lisinopril 10 MG TAB PO SCH (19:53)
[2021-03-22] MEDS: MONTELUKAST SODIUM 10 MG TABLET PO SCH (19:53)
--- NOTE | 2021-03-22 23:05 | Hospitalist Progress Note ---
Date of Service March 22, 2021 Assessment & Plan (1) Metabolic encephalopathy: Plan: Multifactorial mostly due to UTI and hyponatremia CT head showed no hemorrhage, mass effect, or evidence of acute territorial ischemia Na on admission 120 UA Positive for Leukocytes and Nitrite CXR negative Continue monitor closely Hyponatremia Hyponatremia Discharged about 6 weeks ago for Hyponatremia History of chronic hyponatremia, known hx of SIADH Sodium of 120 on admission Urine Na and Urine Osmolarity normal Nephrology on board Case discussed with Nephrology that recommended 1.2L fluid restriction, continue salt tablet and urea to continue Hold Lasix for now Goal for Na around 127 by 10PM Continue monitor BMP Small cell carcinoma of lung S/p 4 cycles of carboplatin and etoposide with radiation completed 02/21/2020 as well as prophylactic cranial radiation Recent PET scan from December 2020 shows new metabolically active hepatic metastasis and new lung nodules and metabolically active mediastinal lymphadenopathy. now considered incurable disease Plan to start palliative chemotherapy today with atezolizumab but sent to ER for admission for hyponatremia Follows with Dr. Nolasco Chronic respiratory failure with hypoxia COPD In setting of COPD Continue O2 supplementation 2L NC, home inhalers Paroxysmal Atrial fibrillation Rate and rhythm controlled on flecainide Anticoagulated with Eliquis Abnormal CT head finding during last admission No focal neuro deficit currently CT head on last admission showed interval development of small focal area of increased attenuation adjacent to the posterior aspect of the falx which was not seen on on recent prior study, might represent developing calcifications, however small bleeding cannot be completely ruled out. Repeat CT head on 02/04 showed no change in the 4 mm hyperdense focus within the right high convexity. This could represent calcification or a small hyperdense lesion rather than intraparenchymal hemorrhage given the stability. MRI on 02/05 showed redemonstration of a subtle nodular focus within the right parietal lobe near the high convexity with minimal surrounding edema. This demonstrates hypointense signal with possible restricted diffusion. This remains nonspecific but is concerning for a small lesion could represent a metastatic focus. Small focus of intracranial hemorrhage is considered less likely but not entirely excluded. No acute infarct. Recent CT head on this admission showed the tiny hyperdense focus along the high right posterior midline falx is unchanged compare to the Imaging 6 weeks ago Continue outpatient follow up Hypertension Continue lisinopril and Verapmil Continue monitor BP History of CVA Continue asa, statin No current deficits Hypothyroidism TSH wnl Continue levothyroxine, thiothixene, Liothyronine Depression Will resume bupropion RAKESH Continue Bipap HS DVT Ppx on Eliquis Code status: FULL brother/medical POA, Mr. Andrade Files, contact #[phone]. Admission and Anticipated Discharge Date Admission Date: March 21, 2021 Subjective Pt was seen and examined for follow up of confusion and hyponatremia Lying in bed confused and sleepy not able to keep her eyes opened He takes a few seconds to respond Denies any chest pain, palpitation, dizziness and SOB Physical Exam Physical Exam: General- No acute distress Head- atraumatic Eyes- PERRL, EOMI, ENT- oropharynx clear Neck- supple, no JVD Lungs- clear to auscultation Heart- regular rhythm; no murmur Abdomen- normal bowel sounds, soft, nontender Extremities- no calf tenderness Neuro- alert, oriented x 3; PERRL, EOMI; no facial palsy; no dysarthria Skin- warm & dry Results & Data Results & Data ([facility]) Vital Signs (Past 12 Hours) Vital Signs Temp Pulse Pulse Resp BP Pulse Ox 03/22/21 19:22 36.8 C 78 20 101/65 95 03/22/21 16:07 75 03/22/21 14:49 36.5 C 74 19 97/61 L 94 03/22/21 11:42 84 18 109/73 94
[2021-03-23] MEDS: PIPERACILLIN/TAZOBACTAM 3.375 GM in DEXTROSE 5% 100 ML IV SCH ×3 (04:14→20:59)
[2021-03-23] MEDS: LEVOTHYROXINE SODIUM 125 MCG TABLET PO SCH (05:53)
[2021-03-23] MEDS: UREA (UREA-NA) 15 GM PACK PO SCH ×2 (08:37→21:03)
[2021-03-23] MEDS: MAGNESIUM OXIDE 400 MG TAB PO SCH (08:38)
[2021-03-23] MEDS: PRAVASTATIN SOD 40 MG TAB PO SCH (08:38)
[2021-03-23] MEDS: APIXABAN 5 MG TABLET PO SCH ×2 (08:38→21:02)
[2021-03-23] MEDS: MULTIVITAMIN TAB PO SCH (08:38)
[2021-03-23] MEDS: lisinopril 10 MG TAB PO SCH ×2 (08:38→21:04)
[2021-03-23] MEDS: PANTOprazole 40 MG TAB PO SCH ×2 (08:38→21:01)
[2021-03-23] MEDS: SODIUM CHLORIDE 1 GM TABLET PO SCH ×2 (08:38→21:02)
[2021-03-23] MEDS: LIOTHYRONINE SODIUM 5 MCG TAB PO SCH ×2 (08:38→21:03)
[2021-03-23] MEDS: THIOTHIXENE 5 MG CAP PO SCH (08:38)
[2021-03-23] MEDS: FLUTICASONE/VILANTEROL 200/25MCG 14 PUFFS/INHALER INH SCH (08:39)
[2021-03-23] MEDS: FLECAINIDE ACETATE 100 MG TABLET PO SCH ×2 (08:39→21:01)
[2021-03-23] MEDS: VERAPAMIL HCL 240 MG TABCR PO SCH (09:59)
[2021-03-23 11:39] LABS: Hematocrit (blood only) 26.2 % (37-47); Hemoglobin 9.1 g/dL (12.0-16.0); Mean Corpuscular Hemoglobin 27.5 pg (25-34); Mean Corpuscular Hgb Conc 34.7 g/dL (32-36); Mean Corpuscular Volume 79.2 fL (80-100); RDW Coefficient of Variation 21.1 % (11.5-14.5); RDW Standard Deviation 56.1 fL (36.4-46.3); Red Blood Count 3.31 M/uL (4.2-5.4); White Blood Count 1.39 K/uL (4.8-10.8)
[2021-03-23 11:48] LABS: Mean Platelet Volume 9.1 fL (7.4-10.4); Platelet Count 68 K/uL (130-400)
[2021-03-23 14:25] LABS: BUN Creatinine Ratio 55.2 (10-20); Calcium 8.5 mg/dl (8.5-10.1); Creatinine Clr Calc Pharmacy 110.8 ml/min; Est GFR (African American) 122.7 ml/min; Est GFR (Non-African American) 105.9 ml/min; Potassium 3.6 mmol/L (3.5-5.1)
--- NOTE | 2021-03-23 16:59 | Nephrology Progress Note ---
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 She had an element of volume depletion on presentation and was given 1 lit Ns , do not give any more IV fluids. Max sNa for tomorrow am is 133 -cont FR 1.2L > she denied thirst to me -recheck bmp ordered for this am >> up to 127 this AM -daily bmp ok at this point; bid would be ok as well -cont urea, salt tab BID - previous note she is allergic to lasix , but the prescription has lasix on it, Need to clarify this with patient and her son. (2) Altered mental status: Plan: Multifactorial : Sepsis (complicated UTI, possible aspiration pneumonitis, history esophageal dysmotility as per records) Home meds contributory. Not sure of her baseline MS but not severely confused today Admission and Anticipated Discharge Date Admission Date: March 21, 2021 Subjective seen on rounds at 0950; no c/o n/v, worsening confusion, edema; states breathing at baseline Review of Systems Review of Systems: All systems reviewed & are unremarkable except as noted in Subjective Physical Exam Constitutional: well developed, cooperative and + malnourished Eyes: EOM intact bilaterally ENMT: Ears: no external ear abnormality Nose: no external nose abnormality Mouth: + dry oral mucous membranes Neck: no nuchal rigidity Respiratory: normal respiratory effort Auscultation: + diminished lung stephanie nds and + crackles (R base) Cardiovascular: Rate/Rhythm: regular rate and regular rhythm Extremities: no edema Gastrointestinal (Abdomen): Inspection/Auscultation: normal bowel sounds Percussion/Palpation: abdomen soft; abdomen nontender Musculoskeletal: Extremities: + abnormal strength (generalized weakness) Skin: no rashes, warm and dry +alopecia Neurologic: bonilla, fluent speech but notable psychomotor slowing, no tremor Psychiatric: Orientation: alert, oriented to person and oriented to place Eye Contact: + fair eye contact Genitourinary: gaming w/ ample light colored urine Results & Data ([facility]) Vital Signs (Past 12 Hours) Vital Signs Temp Pulse Pulse Resp BP Pulse Ox 03/23/21 15:41 36.6 C 82 20 100/64 92 03/23/21 15:30 84 03/23/21 11:37 36.6 C 87 20 98/65 L 92 03/23/21 07:32 37.0 C 83 20 98/63 L 96 03/23/21 07:19 75 Laboratory Results 03/23/21 11:28 03/23/21 11:29 (1) Altered mental status Altered mental status type: disorientation Qualified Code(s): R41.0 - Disorientation, unspecified
[2021-03-23] MEDS: MONTELUKAST SODIUM 10 MG TABLET PO SCH (21:02)
--- NOTE | 2021-03-23 22:49 | Hospitalist Progress Note ---
Date of Service March 23, 2021 Assessment & Plan (1) Metabolic encephalopathy: Plan: Multifactorial mostly due to UTI and hyponatremia CT head showed no hemorrhage, mass effect, or evidence of acute territorial ischemia Na on admission 120 UA Positive for Leukocytes and Nitrite CXR negative Continue monitor closely Clinically improves Hyponatremia Discharged about 6 weeks ago for Hyponatremia History of chronic hyponatremia, known hx of SIADH Sodium of 120 on admission Urine Na and Urine Osmolarity normal Nephrology on board Case discussed with Nephrology that recommended 1.2L fluid restriction, continue salt tablet and urea to continue Na improved to 127 today Hold Lasix for now ( nephro note said that she has lasix allergy, doubt it because last admission I gave her lasix with no reaction) Continue monitor BMP UTI UA positive for Leukocytes and bacteria Urine cx positive Ecoli Currently on IV zosyn Will transition to PO Keflex Small cell carcinoma of lung S/p 4 cycles of carboplatin and etoposide with radiation completed 02/21/2020 as well as prophylactic cranial radiation Recent PET scan from December 2020 shows new metabolically active hepatic metastasis and new lung nodules and metabolically active mediastinal lymphadenopathy. now considered incurable disease Follows with Dr. Nolasco Chronic respiratory failure with hypoxia COPD In setting of COPD Continue O2 supplementation 2L NC, home inhalers Paroxysmal Atrial fibrillation Rate and rhythm controlled on flecainide Anticoagulated with Eliquis Abnormal CT head finding during last admission No focal neuro deficit currently CT head on last admission showed interval development of small focal area of increased attenuation adjacent to the posterior aspect of the falx which was not seen on on recent prior study, might represent developing calcifications, howeve r small bleeding cannot be completely ruled out. Repeat CT head on 02/04 showed no change in the 4 mm hyperdense focus within the right high convexity. This could represent calcification or a small hyperdense lesion rather than intraparenchymal hemorrhage given the stability. MRI on 02/05 showed redemonstration of a subtle nodular focus within the right parietal lobe near the high convexity with minimal surrounding edema. This demonstrates hypointense signal with possible restricted diffusion. This remains nonspecific but is concerning for a small lesion could represent a metastatic focus. Small focus of intracranial hemorrhage is considered less likely but not entirely excluded. No acute infarct. Recent CT head on this admission showed the tiny hyperdense focus along the high right posterior midline falx is unchanged compare to the Imaging 6 weeks ago Continue outpatient follow up Hypertension Continue lisinopril and Verapmil Continue monitor BP History of CVA Continue asa, statin No current deficits Hypothyroidism TSH wnl Continue levothyroxine, thiothixene, Liothyronine Depression Will resume bupropion RAKESH Continue Bipap HS DVT Ppx on Eliquis Code status: FULL brother/medical POA, Mr. Raymond Syed, contact #[phone]. Admission and Anticipated Discharge Date Admission Date: March 21, 2021 Subjective Pt was seen and examined for follow up of confusion and hyponatremia Sitting in chair with no distress eating her lunch She is more awake today She said that was watching her fluid intake, but she drank boost daily Denies any chest pain, palpitation, dizziness and SOB Physical Exam Physical Exam: General- No acute distress Head- atraumatic Eyes- PERRL, EOMI, ENT- oropharynx clear Neck- supple, no JVD Lungs- clear to auscultation Heart- regular rhythm; no murmur Abdomen- normal bowel sounds, soft, nontender Extremities- no calf tenderness Neuro- alert, oriented x 3; PERRL, EOMI; no facial palsy; no dysarthria Skin- warm & dry Results & Data Results & Data ([facility]) Vital Signs (Past 12 Hours) Vital Signs Temp Pulse Pulse Resp BP Pulse Ox 03/23/21 19:23 36.8 C 91 H 20 110/69 92 03/23/21 15:41 36.6 C 82 20 100/64 92 03/23/21 15:30 84 03/23/21 11:37 36.6 C 87 20 98/65 L 92
[2021-03-24] MEDS: PIPERACILLIN/TAZOBACTAM 3.375 GM in DEXTROSE 5% 100 ML IV SCH (03:41)
[2021-03-24] MEDS: LEVOTHYROXINE SODIUM 125 MCG TABLET PO SCH (06:03)
[2021-03-24] MEDS: MULTIVITAMIN TAB PO SCH (08:48)
[2021-03-24] MEDS: PRAVASTATIN SOD 40 MG TAB PO SCH (08:48)
[2021-03-24] MEDS: THIOTHIXENE 5 MG CAP PO SCH ×3 (08:48→20:58)
[2021-03-24] MEDS: SODIUM CHLORIDE 1 GM TABLET PO SCH ×2 (08:49→20:57)
[2021-03-24] MEDS: VERAPAMIL HCL 240 MG TABCR PO SCH (08:49)
[2021-03-24] MEDS: PANTOprazole 40 MG TAB PO SCH ×2 (08:49→20:55)
[2021-03-24] MEDS: UREA (UREA-NA) 15 GM PACK PO SCH ×2 (08:49→20:54)
[2021-03-24] MEDS: APIXABAN 5 MG TABLET PO SCH ×2 (08:49→20:55)
[2021-03-24] MEDS: LIOTHYRONINE SODIUM 5 MCG TAB PO SCH ×2 (08:49→20:54)
[2021-03-24] MEDS: FLUTICASONE/VILANTEROL 200/25MCG 14 PUFFS/INHALER INH SCH (08:49)
[2021-03-24] MEDS: FLECAINIDE ACETATE 100 MG TABLET PO SCH ×2 (08:49→20:55)
[2021-03-24] MEDS: MAGNESIUM OXIDE 400 MG TAB PO SCH (08:49)
[2021-03-24] MEDS: lisinopril 10 MG TAB PO SCH ×2 (08:49→20:57)
[2021-03-24 09:31] LABS: Hemoglobin 9.4 g/dL (12.0-16.0); Mean Corpuscular Hemoglobin 26.5 pg (25-34); Mean Corpuscular Hgb Conc 33.6 g/dL (32-36); Mean Corpuscular Volume 78.9 fL (80-100); RDW Coefficient of Variation 21.4 % (11.5-14.5); RDW Standard Deviation 57.9 fL (36.4-46.3); Red Blood Count 3.55 M/uL (4.2-5.4); White Blood Count 1.58 K/uL (4.8-10.8)
[2021-03-24 09:46] LABS: Mean Platelet Volume 10.1 fL (7.4-10.4); Platelet Count 82 K/uL (130-400)
[2021-03-24] MEDS: HEPARIN 100 UNIT/ML 5ML FLUSH FLUSH PRN (09:46)
[2021-03-24 09:58] LABS: BUN Creatinine Ratio 19.6 (10-20); Calcium 8.7 mg/dl (8.5-10.1); Creatinine Clr Calc Pharmacy 129.6 ml/min; Est GFR (African American) 129.4 ml/min; Est GFR (Non-African American) 111.6 ml/min; Potassium 3.2 mmol/L (3.5-5.1)
--- NOTE | 2021-03-24 10:01 | Nephrology Progress Note ---
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 She had an element of volume depletion on presentation and do not give any more IV fluids. Max sNa for today is 133. pending labs for today -cont FR 1.2L -recheck bmp q12hr - -cont urea, salt tab BID --Can remove gaming Subjective no c/o n/v, worsening confusion, edema; states breathing at baseline has gaming and does not like it. Review of Systems Review of Systems: All systems reviewed & are unremarkable except as noted in Subjective Physical Exam Constitutional: well developed, cooperative and + malnourished Eyes: EOM intact bilaterally ENMT: Ears: no external ear abnormality Nose: no external nose abnormality Mouth: + dry oral mucous membranes Neck: no nuchal rigidity Respiratory: normal respiratory effort Auscultation: + diminished lung sounds and + crackles (R base) Cardiovascular: Rate/Rhythm: regular rate and regular rhythm Extremities: no edema Gastrointestinal (Abdomen): Inspection/Auscultation: normal bowel sounds Percussion/Palpation: abdomen soft; abdomen nontender Musculoskeletal: Extremities: + abnormal strength (generalized weakness) Skin: no rashes, warm and dry +alopecia Neurologic: bonilla, fluent speech but notable psychomotor slowing, no tremor Psychiatric: Orientation: alert, oriented to person and oriented to place Eye Contact: + fair eye contact Genitourinary: gaming w/ ample light colored urine Results & Data ([facility]) Vital Signs (Past 12 Hours) Vital Signs Temp Pulse Pulse Resp BP Pulse Ox 03/24/21 07:35 76 03/24/21 07:31 36.4 C L 76 20 122/73 100 03/24/21 04:19 36.8 C 83 18 112/69 97 03/24/21 00:14 36.8 C 79 18 113/71 95 03/23/21 22:19 83
[2021-03-24] MEDS ORDERED: POTASSIUM CHLORIDE CRTAB 20 MEQ TABCR PO STA (10:02)
[2021-03-24] MEDS: cephALEXin 500 MG CAP PO SCH ×2 (10:43→22:41)
--- NOTE | 2021-03-24 17:46 | Hospitalist Progress Note ---
Date of Service March 24, 2021 Assessment & Plan (1) Metabolic encephalopathy: Plan: Multifactorial mostly due to UTI and hyponatremia CT head showed no hemorrhage, mass effect, or evidence of acute territorial ischemia Na on admission 120 UA Positive for Leukocytes and Nitrite CXR negative Continue monitor closely Clinically improves Hyponatremia Discharged about 6 weeks ago for Hyponatremia History of chronic hyponatremia, known hx of SIADH Sodium of 120 on admission Urine Na and Urine Osmolarity normal Nephrology on board Case discussed with Nephrology that recommended 1.2L fluid restriction, continue salt tablet and urea to continue Na improved to 128 today Hold Lasix for now ( nephro note said that she has lasix allergy, doubt it because last admission I gave her lasix with no reaction) Continue monitor BMP UTI UA positive for Leukocytes and bacteria Urine cx positive Ecoli Currently on IV zosyn Will transition to PO Keflex Small cell carcinoma of lung S/p 4 cycles of carboplatin and etoposide with radiation completed 02/21/2020 as well as prophylactic cranial radiation Recent PET scan from December 2020 shows new metabolically active hepatic metastasis and new lung nodules and metabolically active mediastinal lymphadenopathy. now considered incurable disease Follows with Dr. Nolasco Chronic respiratory failure with hypoxia COPD In setting of COPD Continue O2 supplementation 2L NC, home inhalers Paroxysmal Atrial fibrillation Rate and rhythm controlled on flecainide Anticoagulated with Eliquis Abnormal CT head finding during last admission No focal neuro deficit currently CT head on last admission showed interval development of small focal area of increased attenuation adjacent to the posterior aspect of the falx which was not seen on on recent prior study, might represent developing calcifications, howeve r small bleeding cannot be completely ruled out. Repeat CT head on 02/04 showed no change in the 4 mm hyperdense focus within the right high convexity. This could represent calcification or a small hyperdense lesion rather than intraparenchymal hemorrhage given the stability. MRI on 02/05 showed redemonstration of a subtle nodular focus within the right parietal lobe near the high convexity with minimal surrounding edema. This demonstrates hypointense signal with possible restricted diffusion. This remains nonspecific but is concerning for a small lesion could represent a metastatic focus. Small focus of intracranial hemorrhage is considered less likely but not entirely excluded. No acute infarct. Recent CT head on this admission showed the tiny hyperdense focus along the high right posterior midline falx is unchanged compare to the Imaging 6 weeks ago Continue outpatient follow up Hypertension Continue lisinopril and Verapmil Continue monitor BP History of CVA Continue asa, statin No current deficits Hypothyroidism TSH wnl Continue levothyroxine, thiothixene, Liothyronine Depression Will resume bupropion RAKESH Continue Bipap HS DVT Ppx on Eliquis Code status: FULL brother/medical POA, Mr. Raymond Syed, contact #[phone]. Admission and Anticipated Discharge Date Admission Date: March 21, 2021 Subjective Pt was seen and examined for confusion and hyponatremia Sitting in chair with no distress Pt mental status is back to normal Denies an chest pain, palpitation and SOB Physical Exam Physical Exam: General- No acute distress Head- atraumatic Eyes- PERRL, EOMI, ENT- oropharynx clear Neck- supple, no JVD Lungs- clear to auscultation Heart- regular rhythm; no murmur Abdomen- normal bowel sounds, soft, nontender Extremities- no calf tenderness Neuro- alert, oriented x 3; PERRL, EOMI; no facial palsy; no dysarthria Skin- warm & dry Results & Data Results & Data ([facility]) Vital Signs (Past 12 Hours) Vital Signs Temp Pulse Pulse Resp BP BP Pulse Ox 03/24/21 15:36 36.6 C 59 L 20 84/48 L 94 03/24/21 15:14 60 03/24/21 12:36 36.6 C 63 20 84/50 L 97 03/24/21 07:35 76 03/24/21 07:31 36.4 C L 76 20 122/73 100
[2021-03-24] MEDS: MONTELUKAST SODIUM 10 MG TABLET PO SCH (20:56)
[2021-03-25] MEDS: LEVOTHYROXINE SODIUM 125 MCG TABLET PO SCH (06:12)
[2021-03-25] MEDS: MULTIVITAMIN TAB PO SCH (09:08)
[2021-03-25] MEDS: SODIUM CHLORIDE 1 GM TABLET PO SCH ×2 (09:08→20:50)
[2021-03-25] MEDS: MAGNESIUM OXIDE 400 MG TAB PO SCH (09:08)
[2021-03-25] MEDS: lisinopril 10 MG TAB PO SCH ×2 (09:08→20:49)
[2021-03-25] MEDS: UREA (UREA-NA) 15 GM PACK PO SCH ×2 (09:08→20:46)
[2021-03-25] MEDS: PANTOprazole 40 MG TAB PO SCH ×2 (09:08→20:51)
[2021-03-25] MEDS: PRAVASTATIN SOD 40 MG TAB PO SCH (09:08)
[2021-03-25] MEDS: FLECAINIDE ACETATE 100 MG TABLET PO SCH ×2 (09:08→20:51)
[2021-03-25] MEDS: APIXABAN 5 MG TABLET PO SCH ×2 (09:08→20:47)
[2021-03-25] MEDS: LIOTHYRONINE SODIUM 5 MCG TAB PO SCH ×2 (09:09→20:52)
[2021-03-25] MEDS: FLUTICASONE/VILANTEROL 200/25MCG 14 PUFFS/INHALER INH SCH (09:09)
[2021-03-25] MEDS: VERAPAMIL HCL 240 MG TABCR PO SCH (09:10)
[2021-03-25 09:32] LABS: BUN Creatinine Ratio 35.8 (10-20); Calcium 8.7 mg/dl (8.5-10.1); Creatinine Clr Calc Pharmacy 129.8 ml/min; Est GFR (African American) 129.4 ml/min; Est GFR (Non-African American) 111.6 ml/min; Potassium 4.1 mmol/L (3.5-5.1)
[2021-03-25] MEDS: cephALEXin 500 MG CAP PO SCH (10:28)
--- NOTE | 2021-03-25 13:58 | Nephrology Progress Note ---
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 She had an element of volume depletion on presentation and was given 1 lit Ns , do not give any more IV fluids. Max sNa for tomorrow am is 137; doubt she will hit this -cont FR 1.2L > she again today denied thirst to me -recheck bmp daily -cont urea, salt tab BID > if stable tomorrow will consider stop urea, since she cannot access as OP - previous note she is allergic to lasix , but the prescription has lasix on it, Need to clarify this with patient and her son. (2) Altered mental status: Plan: Multifactorial : Sepsis (complicated UTI, possible aspiration pneumonitis, history esophageal dysmotility as per records) Home meds contributory. Not sure of her baseline MS but not severely confused today Admission and Anticipated Discharge Date Admission Date: March 21, 2021 Subjective no interval clinical events. pt up in chair, states enjoyed midday meal, no edema, no uncontrolled pain, no N Review of Systems Review of Systems: All systems reviewed & are unremarkable except as noted in Subjective Physical Exam Constitutional: well developed, cooperative and + malnourished Eyes: EOM intact bilaterally ENMT: Ears: no external ear abnormality Nose: no external nose abnormality Mouth: + dry oral mucous membranes Neck: no nuchal rigidity Respiratory: normal respiratory effort Auscultation: + diminished lung sounds and + crackles (R base) on 02NC today Cardiovascular: Rate/Rhythm: regular rate and regular rhythm Extremities: no edema Gastrointestinal (Abdomen): Inspection/Auscultation: normal bowel sounds Percussion/Palpation: abdomen soft; abdomen nontender Musculoskeletal: Extremities: + abnormal strength (generalized weakness) Skin: no rashes, warm and dry Neurologic: bonilla, fluent speech but slighty psychomotor delay Psychiatric: Orientation: alert, oriented to person and oriented to place Eye Contact: + fair eye contact Results & Data ([facility]) Vital Signs (Past 12 Hours) Vital Signs Temp Pulse Pulse Resp BP BP Pulse Ox 03/25/21 12:20 36.5 C 86 18 99/66 L 99/60 L 98 03/25/21 10:02 113 H 03/25/21 09:10 36.5 C 116 H 16 124/83 99 03/25/21 04:48 36.5 C 106 H 16 122/75 95 Laboratory Results 03/24/21 09:00 03/25/21 08:17 (1) Altered mental status Altered mental status type: disorientation Qualified Code(s): R41.0 - Disorientation, unspecified
--- NOTE | 2021-03-25 20:39 | Hospitalist Progress Note ---
Date of Service March 25, 2021 Assessment & Plan (1) Metabolic encephalopathy: Plan: per Dr. Bonilla's notes: Multifactorial mostly due to Hyponatremia, UTI- E coli CT head showed no hemorrhage, mass effect, or evidence of acute territorial ischemia Na on admission 120 UA Positive for Leukocytes and Nitrite CXR negative Hyponatremia per Dr. Bonilla's notes: Discharged about 6 weeks ago for Hyponatremia History of chronic hyponatremia, known hx of SIADH Sodium of 120 on admission Na improved to 131 Nephro on board continue fluid restriction, continue salt tablet and urea Hold Lasix for now ( nephro note said that she has lasix allergy, doubt it because last admission I gave her lasix with no reaction) Continue monitor BMP E coli UTI UA positive for Leukocytes and bacteria Urine cx positive Ecoli change to IV Cefepime given left upper arm cellulitis Left upper arm cellulitis check nasal MRSA start IV Cefepime Pancytopenia from [place]? underlying infection? check peripheral smear monitor Small cell carcinoma of lung S/p 4 cycles of carboplatin and etoposide with radiation completed 02/21/2020 as well as prophylactic cranial radiation Recent PET scan from December 2020 shows new metabolically active hepatic metastasis and new lung nodules and metabolically active mediastinal lymphadenopathy. now considered incurable disease Follows with Dr. Nolasco Chronic respiratory failure with hypoxia COPD In setting of COPD Continue O2 supplementation 2L NC, home inhalers Paroxysmal Atrial fibrillation Rate and rhythm controlled on flecainide Anticoagulated with Eliquis Abnormal CT head finding during last admission per Dr. Bonilla's notes: No focal neuro deficit currently CT head on last admission showed interval development of small focal area of increased attenuation adjacent to the posterior aspect of the falx which was not seen on on recent prior study, might represent developing calcifications, however small bleeding cannot be completely ruled out. Repeat CT head on 02/04 showed no change in the 4 mm hyperdense focus within the right high convexity. This could represent calcification or a small hyperdense lesion rather than intraparenchymal hemorrhage given the stability. MRI on 02/05 showed redemonstration of a subtle nodular focus within the right parietal lobe near the high convexity with minimal surrounding edema. This demonstrates hypointense signal with possible restricted diffusion. This remains nonspecific but is concerning for a small lesion could represent a metastatic focus. Small focus of intracranial hemorrhage is considered less likely but not entirely excluded. No acute infarct. Recent CT head on this admission showed the tiny hyperdense focus along the high right posterior midline falx is unchanged compare to the Imaging 6 weeks ago Continue outpatient follow up Hypertension Continue lisinopril and Verapmil Continue monitor BP History of CVA Continue asa, statin No current deficits Hypothyroidism TSH wnl Continue levothyroxine, thiothixene, Liothyronine Depression bupropion RAKESH Continue Bipap HS DVT Ppx on Eliquis Code status: FULL Disposition pending Admission and Anticipated Discharge Date Admission Date: March 21, 2021 Subjective ff up for encephalopathy, etc seen resting in bedside chair, comfortable not in distress, in good spirits oriented x 3, answers all questions appropriately states she feels much better overall denies confusion denies urinary symptoms does report and showed her left arm - swollen, red, painful x few days since receiving 2nd dose of COVID shot no other symptoms Review of Systems Review of Systems: all noted and negative except for above Physical Exam Physical Exam: General- oriented x 3, not in distress, speaks in sentences with no effort or accessory muscle use Head- atraumatic Eyes- PERRL, EOMI, anicteric ENT- oropharynx clear Neck- supple, no JVD, no adenopathy, no thyromegaly; carotids +2/2, no bruits appreciated Lungs- clear to auscultation bilaterally, no rales/wheezes Heart- normal rate, regular rhythm; no murmur, no gallop, no rub appreciated Abdomen- normal bowel sounds, nondistended, soft, nontender, no masses or hepatosplenomegaly Extremities- no pretibial edema, no calf tenderness; peripheral pulses intact left upper arm: (+) erythema- moderate, with mild warmth and tenderness, demarcated Neuro- alert, oriented x 3; CN 2-12 grossly intact; motor 5/5 bilaterally;sensation 100% on all extremities; no other gross focal neurologic deficits Skin- warm & dry Results & Data Results & Data ([facility]) Vital Signs (Past 12 Hours) Vital Signs Temp Pulse Pulse Resp BP BP Pulse Ox 03/25/21 19:40 36.6 C 86 18 111/74 97 03/25/21 16:23 36.5 C 86 20 97/66 L 95 03/25/21 15:00 89 03/25/21 12:20 36.5 C 86 18 99/66 L 99/60 L 98 03/25/21 10:02 113 H 03/25/21 09:10 36.5 C 116 H 16 124/83 99 all noted and reviewed including below
[2021-03-25] MEDS ORDERED: CEFEPIME CONSULT ACTIVE PRN (20:44)
[2021-03-25] MEDS: MONTELUKAST SODIUM 10 MG TABLET PO SCH (20:46)
[2021-03-25] MEDS: THIOTHIXENE 5 MG CAP PO SCH (20:49)
[2021-03-25] MEDS: CEFEPIME 2,000 MG in SYRINGE 0 ML IV SCH (21:42)
[2021-03-26] MEDS: LEVOTHYROXINE SODIUM 125 MCG TABLET PO SCH (05:39)
[2021-03-26] MEDS: CEFEPIME 2,000 MG in SYRINGE 0 ML IV SCH (05:39)
[2021-03-26] MEDS: FLUTICASONE/VILANTEROL 200/25MCG 14 PUFFS/INHALER INH SCH (07:30)
[2021-03-26] MEDS: APIXABAN 5 MG TABLET PO SCH ×2 (07:31→21:14)
[2021-03-26] MEDS: PANTOprazole 40 MG TAB PO SCH ×2 (07:31→21:15)
[2021-03-26] MEDS: UREA (UREA-NA) 15 GM PACK PO SCH (07:31)
[2021-03-26] MEDS: lisinopril 10 MG TAB PO SCH ×2 (07:31→21:17)
[2021-03-26] MEDS: MULTIVITAMIN TAB PO SCH (07:31)
[2021-03-26] MEDS: SODIUM CHLORIDE 1 GM TABLET PO SCH ×2 (07:31→21:16)
[2021-03-26] MEDS: PRAVASTATIN SOD 40 MG TAB PO SCH (07:31)
[2021-03-26] MEDS: LIOTHYRONINE SODIUM 5 MCG TAB PO SCH ×2 (07:31→21:17)
[2021-03-26] MEDS: MAGNESIUM OXIDE 400 MG TAB PO SCH (07:31)
[2021-03-26] MEDS: VERAPAMIL HCL 240 MG TABCR PO SCH (07:31)
[2021-03-26] MEDS: FLECAINIDE ACETATE 100 MG TABLET PO SCH ×2 (07:32→21:16)
[2021-03-26 07:46] LABS: BUN Creatinine Ratio 56.4 (10-20); Calcium 8.6 mg/dl (8.5-10.1); Creatinine Clr Calc Pharmacy 138.9 ml/min; Est GFR (African American) 131.6 ml/min; Est GFR (Non-African American) 113.5 ml/min; Potassium 4.1 mmol/L (3.5-5.1)
[2021-03-26 09:46] LABS: Basophils # (auto) 0.02 K/uL (0-0.2); Basophils % (auto) 0.7 %; Eosinophils # (auto) 0.05 K/uL (0-0.5); Eosinophils % (auto) 1.8 %; Hematocrit (blood only) 24.9 % (37-47); Hemoglobin 8.2 g/dL (12.0-16.0); Lymphocytes # (auto) 0.61 K/uL (1.2-3.4); Lymphocytes % (auto) 22.4 %; Mean Corpuscular Hemoglobin 26.5 pg (25-34); Mean Corpuscular Hgb Conc 32.9 g/dL (32-36); Mean Corpuscular Volume 80.6 fL (80-100); Mean Platelet Volume 9.6 fL (7.4-10.4); Monocytes # (auto) 0.51 K/uL (0.11-0.59); Monocytes % (auto) 18.8 %; Neutrophils # (auto) 1.53 K/uL (1.4-6.5); Neutrophils % (auto) 56.3 %; Platelet Count 114 K/uL (130-400); RDW Coefficient of Variation 22.1 % (11.5-14.5); RDW Standard Deviation 62.9 fL (36.4-46.3); Red Blood Count 3.09 M/uL (4.2-5.4); White Blood Count 2.72 K/uL (4.8-10.8)
[2021-03-26 10:06] LABS: Anisocytosis Present; Ovalocytes 1+
[2021-03-26] MEDS: ceFAZolin 2000MG 2,000 MG/15 ML SYR IV SCH ×2 (13:54→21:18)
--- NOTE | 2021-03-26 17:52 | Nephrology Progress Note ---
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 She had an element of volume depletion on presentation and was given 1 lit Ns , do not give any more IV fluids. Max sNa for tomorrow am is 137; doubt she will hit this -cont FR 1.2L > she again today denied thirst to me -recheck bmp daily -cont salt tab bid but will stop urea as she has not been able to access this as OP - previous note she is allergic to lasix , but the prescription has lasix on it, Need to clarify this with patient and her son. (2) Altered mental status: Plan: Multifactorial : Sepsis (complicated UTI, possible aspiration pneumonitis, history esophageal dysmotility as per records) Home meds contributory. Not sure of her baseline MS but not severely confused today Admission and Anticipated Discharge Date Admission Date: March 21, 2021 Subjective enjoying supper. states breathing at baseline; denies N/v, feels breathing at baseline. Review of Systems Review of Systems: All systems reviewed & are unremarkable except as noted in Subjective Physical Exam Constitutional: well developed, cooperative and + malnourished Eyes: EOM intact bilaterally ENMT: Ears: no external ear abnormality Nose: no external nose abnormality Mouth: + dry oral mucous membranes Neck: no nuchal rigidity Respiratory: normal respiratory effort Auscultation: + diminished lung s ounds (R side) and + crackles (R base fine/occasional) Cardiovascular: Rate/Rhythm: regular rate and regular rhythm Extremities: no edema Gastrointestinal (Abdomen): Inspection/Auscultation: normal bowel sounds Percussion/Palpation: abdomen soft; abdomen nontender Musculoskeletal: Extremities: + abnormal strength (generalized weakness) Skin: no rashes, warm and dry Neurologic: still w/ psychomotor delay Psychiatric: Orientation: alert, oriented to person and oriented to place Eye Contact: + fair eye contact Results & Data ([facility]) Vital Signs (Past 12 Hours) Vital Signs Temp Pulse Resp BP Pulse Ox 03/26/21 15:32 36.5 C 110 H 16 105/61 98 03/26/21 12:12 36.6 C 119 H 16 95/66 L 97 03/26/21 07:41 36.4 C L 116 H 16 119/77 97 Laboratory Results 03/26/21 06:14 03/26/21 06:14 (1) Altered mental status Altered mental status type: disorientation Qualified Code(s): R41.0 - Disorientation, unspecified
--- NOTE | 2021-03-26 19:35 | Hospitalist Progress Note ---
Date of Service March 26, 2021 Assessment & Plan (1) Metabolic encephalopathy: Plan: per Dr. Bonilla's notes: Multifactorial mostly due to Hyponatremia, UTI- E coli CT head showed no hemorrhage, mass effect, or evidence of acute territorial ischemia Na on admission 120 UA Positive for Leukocytes and Nitrite CXR negative Hyponatremia per Dr. Bonilla's notes: Discharged about 6 weeks ago for Hyponatremia History of chronic hyponatremia, known hx of SIADH Sodium of 120 on admission Na improved to 131 Nephro on board continue fluid restriction, continue salt tablet and urea Hold Lasix for now ( nephro note said that she has lasix allergy, doubt it because last admission I gave her lasix with no reaction) Continue monitor BMP E coli UTI UA positive for Leukocytes and bacteria Urine cx positive Ecoli on Cefazolin IV Left upper arm cellulitis check nasal MRSA: negative on Cefazolin IV Day 1 will likely need 1-2 more days of IV Cefazolin Pancytopenia from [place]? underlying infection? check peripheral smear: The findings are that of non-specific pancytopenia apparently with a component of iron deficiency anemia. Low levels of ovalocytes may be seen in iron deficiency. No overt changes of myelodysplasia or hemolysis are noted. - improving check iron panel Small cell carcinoma of lung S/p 4 cycles of carboplatin and etoposide with radiation completed 02/21/2020 as well as prophylactic cranial radiation Recent PET scan from December 2020 shows new metabolically active hepatic metastasis and new lung nodules and metabolically active mediastinal lymphadenopathy. now considered incurable disease Follows with Dr. Nolasco Chronic respiratory failure with hypoxia COPD In setting of COPD Continue O2 supplementation 2L NC, home inhalers Paroxysmal Atrial fibrillation Rate and rhythm controlled on flecainide Anticoagulated with Eliquis Abnormal CT head finding during last admission per Dr. Bonilla's notes: No focal neuro deficit currently CT head on last admission showed interval development of small focal area of increased attenuation adjacent to the posterior aspect of the falx which was not seen on on recent prior study, might represent developing calcifications, however small bleeding cannot be completely ruled out. Repeat CT head on 02/04 showed no change in the 4 mm hyperdense focus within the right high convexity. This could represent calcification or a small hyperdense lesion rather than intraparenchymal hemorrhage given the stability. MRI on 02/05 showed redemonstration of a subtle nodular focus within the right parietal lobe near the high convexity with minimal surrounding edema. This d emonstrates hypointense signal with possible restricted diffusion. This remains nonspecific but is concerning for a small lesion could represent a metastatic focus. Small focus of intracranial hemorrhage is considered less likely but not entirely excluded. No acute infarct. Recent CT head on this admission showed the tiny hyperdense focus along the high right posterior midline falx is unchanged compare to the Imaging 6 weeks ago Continue outpatient follow up Hypertension Continue lisinopril and Verapmil Continue monitor BP History of CVA Continue asa, statin No current deficits Hypothyroidism TSH wnl Continue levothyroxine, thiothixene, Liothyronine Depression bupropion RAKESH Continue Bipap HS DVT Ppx on Eliquis Code status: FULL Disposition pending PT/OT eval- recommend return home Admission and Anticipated Discharge Date Admission Date: March 21, 2021 Subjective For encephalopathy, etc. Seen resting in bed side chair, comfortable, not in distress States she feels fine overall oriented X3, answers all questions appropriately no urinary symptoms L upper arm pain improving no other symptoms Review of Systems Review of Systems: all noted and negative except for above Physical Exam Physical Exam: General- oriented x 3, not in distress, speaks in sentences with no effort or accessory muscle use Eyes- anicteric Neck- no JVD Lungs- clear breath sounds bilaterally Heart- normal rate, regular rhythm; no murmurs Abdomen- normal bowel sounds, nondistended, soft, nontender Extremities- no pretibial edema, no calf tenderness left upper arm: edema, erythema, warmth improving Neuro- alert, oriented x 3; no gross focal neurologic deficits Skin- warm & dry Results & Data Results & Data ([facility]) Vital Signs (Past 12 Hours) Vital Signs Temp Pulse Resp BP Pulse Ox 03/26/21 19:02 36.6 C 112 H 18 111/72 98 03/26/21 15:32 36.5 C 110 H 16 105/61 98 03/26/21 12:12 36.6 C 119 H 16 95/66 L 97 03/26/21 07:41 36.4 C L 116 H 16 119/77 97 all noted and reviewed including below
[2021-03-26] MEDS: THIOTHIXENE 5 MG CAP PO SCH (21:15)
[2021-03-26] MEDS: MONTELUKAST SODIUM 10 MG TABLET PO SCH (21:15)
[2021-03-27] MEDS: LEVOTHYROXINE SODIUM 125 MCG TABLET PO SCH (06:00)
[2021-03-27] MEDS: ceFAZolin 2000MG 2,000 MG/15 ML SYR IV SCH ×3 (06:00→22:15)
[2021-03-27] MEDS: lisinopril 10 MG TAB PO SCH ×2 (08:08→21:02)
[2021-03-27] MEDS: PANTOprazole 40 MG TAB PO SCH ×2 (08:08→21:04)
[2021-03-27] MEDS: VERAPAMIL HCL 240 MG TABCR PO SCH (08:09)
[2021-03-27] MEDS: FLUTICASONE/VILANTEROL 200/25MCG 14 PUFFS/INHALER INH SCH (08:09)
[2021-03-27] MEDS: SODIUM CHLORIDE 1 GM TABLET PO SCH ×2 (08:09→21:02)
[2021-03-27] MEDS: LIOTHYRONINE SODIUM 5 MCG TAB PO SCH ×2 (08:09→21:01)
[2021-03-27] MEDS: MULTIVITAMIN TAB PO SCH (08:09)
[2021-03-27] MEDS: APIXABAN 5 MG TABLET PO SCH ×2 (08:09→21:03)
[2021-03-27] MEDS: FLECAINIDE ACETATE 100 MG TABLET PO SCH ×2 (08:09→21:03)
[2021-03-27] MEDS: PRAVASTATIN SOD 40 MG TAB PO SCH (08:10)
[2021-03-27] MEDS: MAGNESIUM OXIDE 400 MG TAB PO SCH (08:10)
[2021-03-27 08:30] LABS: BUN Creatinine Ratio 27.9 (10-20); Calcium 8.8 mg/dl (8.5-10.1); Creatinine Clr Calc Pharmacy 138.9 ml/min; Est GFR (African American) 131.6 ml/min; Est GFR (Non-African American) 113.5 ml/min; Potassium 4.2 mmol/L (3.5-5.1)
[2021-03-27] MEDS: HEPARIN 100 UNIT/ML 5ML FLUSH FLUSH PRN (13:50)
--- NOTE | 2021-03-27 16:53 | Nephrology Progress Note ---
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 She had an element of volume depletion on presentation and was given 1 lit Ns , do not give any more IV fluids. Max sNa for tomorrow am is 137; doubt she will hit this -cont FR 1.2L -recheck bmp daily -cont salt tab bid but will stop urea as she has not been able to access this as OP - previous note she is allergic to lasix , but the prescription has lasix on it, Need to clarify this with patient and her son. WILL SIGN OFF NEPHROLOGY DISCHARGE RECOMMENDATIONS -continue 1.2L fluid limit at discharge -continue salt tabs 1 gm twice daily -check chemistry weekly x 4 after hospital discharge which will be ordered by nephrology -follow up appt pls with Dr Matson (her regular communications scientist) 2-3 weeks after discharge (2) Altered mental status: Plan: Multifactorial : Sepsis (complicated UTI, possible aspiration pneumonitis, history esophageal dysmotility as per records) Home meds contributory. Not sure of her baseline MS but not severely confused today Admission and Anticipated Discharge Date Admission Date: March 21, 2021 Subjective thirsty today; denies sob; feels cellulitis better; tolerating po; upt o bath w/ asst; flipped from AF to NSR this am Review of Systems Review of Systems: All systems reviewed & are unremarkable except as noted in Subjective Physical Exam Constitutional: well developed, cooperative and + malnourished Eyes: EOM intact bilaterally ENMT: Ears: no external ear abnormality Nose: no external nose abnormality Mouth: + dry oral mucous membranes Neck: no nuchal rigidity Respiratory: normal respiratory effort Auscultation: + diminished lung s ounds (R side) and + crackles (R base fine/occasional) Cardiovascular: Rate/Rhythm: regular rate and regular rhythm Extremities: no edema Gastrointestinal (Abdomen): Inspection/Auscultation: normal bowel sounds Percussion/Palpation: abdomen soft; abdomen nontender Musculoskeletal: Extremities: + abnormal strength (generalized weakness) Skin: no rashes, warm and dry Psychiatric: Orientation: alert, oriented to person and oriented to place Eye Contact: + fair eye contact Results & Data ([facility]) Vital Signs (Past 12 Hours) Vital Signs Temp Pulse Pulse Resp BP BP Pulse Ox 03/27/21 15:33 36.2 C L 78 16 100/65 98 03/27/21 14:21 75 03/27/21 13:46 36.6 C 72 16 91/60 L 97 03/27/21 11:31 93/60 L 03/27/21 11:16 36.7 C 74 16 87/55 L 96 03/27/21 11:09 72 03/27/21 07:19 36.5 C 113 H 18 132/82 97 03/27/21 07:02 120 H Laboratory Results 03/26/21 06:14 03/27/21 07:27 (1) Altered mental status Altered mental status type: disorientation Qualified Code(s): R41.0 - Disori entation, unspecified
--- NOTE | 2021-03-27 19:41 | Hospitalist Progress Note ---
Date of Service March 27, 2021 Assessment & Plan (1) Metabolic encephalopathy: Plan: per Dr. Bonilla's notes: Multifactorial mostly due to Hyponatremia, UTI- E coli CT head showed no hemorrhage, mass effect, or evidence of acute territorial ischemia Na on admission 120 UA Positive for Leukocytes and Nitrite CXR negative Hyponatremia per Dr. Bonilla's notes: Discharged about 6 weeks ago for Hyponatremia History of chronic hyponatremia, known hx of SIADH Sodium of 120 on admission Na improved to 133 Nephro on board continue fluid restriction, continue salt tablet urea now stopped Hold Lasix for now ( nephro note said that she has lasix allergy, doubt it because last admission I gave her lasix with no reaction) Continue monitor BMP E coli UTI UA positive for Leukocytes and bacteria Urine cx positive Ecoli on Cefazolin IV Left upper arm cellulitis check nasal MRSA: negative improving continue Cefazolin IV d/c on Cephalexin x 3 more days Pancytopenia from [place]? underlying infection? check peripheral smear: The findings are that of non-specific pancytopenia apparently with a component of iron deficiency anemia. Low levels of ovalocytes may be seen in iron deficiency. No overt changes of myelodysplasia or hemolysis are noted. - improving iron level low - will need PO iron Small cell carcinoma of lung S/p 4 cycles of carboplatin and etoposide with radiation completed 02/21/2020 as well as prophylactic cranial radiation Recent PET scan from December 2020 shows new metabolically active hepatic metastasis and new lung nodules and metabolically active mediastinal lymphadenopathy. now considered incurable disease Follows with Dr. Nolasco Chronic respiratory failure with hypoxia COPD In setting of COPD Continue O2 supplementation 2L NC, home inhalers Paroxysmal Atrial fibrillation Rate and rhythm controlled on flecainide Anticoagulated with Eliquis Abnormal CT head finding during last admission per Dr. Bonilla's notes: No focal neuro deficit currently CT head on last admission showed interval development of small focal area of increased attenuation adjacent to the posterior aspect of the falx which was not seen on on recent prior study, might represent developing calcifications, however small bleeding cannot be completely ruled out. Repeat CT head on 02/04 showed no change in the 4 mm hyperdense focus within the right high convexity. This could represent calcification or a small hyperdense lesion rather than intraparenchymal hemorrhage given the stability. MRI on 02/05 showed redemonstration of a subtle nodular focus within the right parietal lobe near the high convexity with minimal surrounding edema. This demonstrates hypointense signal with possible restricted diffusion. This remains nonspecific but is concerning for a small lesion could represent a metastatic focus. Small focus of intracranial hemorrhage is considered less likely but not entirely excluded. No acute infarct. Recent CT head on this admission showed the tiny hyperdense focus along the high right posterior midline falx is unchanged compare to the Imaging 6 weeks ago Continue outpatient follow up Hypertension Continue lisinopril and Verapmil Continue monitor BP History of CVA Continue asa, statin No current deficits Hypothyroidism TSH wnl Continue levothyroxine, thiothixene, Liothyronine Depression bupropion RAKESH Continue Bipap HS DVT Ppx: on Eliquis Code status: FULL Disposition possible d/c home tomorrow PT/OT eval- recommend return home Admission and Anticipated Discharge Date Admission Date: March 21, 2021 Subjective ff up for encephalopathy, etc seen resting in bed, comfortable states she feels fine overall left upper arm pain better no confusion no other symptoms Review of Systems Review of Systems: all noted negative except for above Physical Exam Physical Exam: General- oriented x 3, not in distress, speaks in sentences with no effort or accessory muscle use Eyes- anicteric Neck- no JVD Lungs- clear BS BL Heart- normal rate, regular rhythm; no murmurs Abdomen- normal bowel sounds, nondistended, soft, nontender Extremities- no pretibial edema, no calf tenderness left upper arm redness, edema- significantly improving Neuro- alert, oriented x 3; no gross focal neurologic deficits Skin- warm & dry Results & Data Results & Data ([facility]) Vital Signs (Past 12 Hours) Vital Signs Temp Pulse Pulse Resp BP BP Pulse Ox 03/27/21 18:37 36.9 C 80 16 110/72 98 03/27/21 15:33 36.2 C L 78 16 100/65 98 03/27/21 14:21 75 03/27/21 13:46 36.6 C 72 16 91/60 L 97 03/27/21 11:31 93/60 L 03/27/21 11:16 36.7 C 74 16 87/55 L 96 03/27/21 11:09 72 all noted and reviewed including below
[2021-03-27] MEDS: THIOTHIXENE 5 MG CAP PO SCH (21:01)
[2021-03-27] MEDS: MONTELUKAST SODIUM 10 MG TABLET PO SCH (21:04)
[2021-03-28] MEDS ORDERED: cephALEXin 500 MG CAP PO SCH
[2021-03-28] MEDS: ceFAZolin 2000MG 2,000 MG/15 ML SYR IV SCH ×2 (05:36→13:02)
[2021-03-28] MEDS: LEVOTHYROXINE SODIUM 125 MCG TABLET PO SCH (05:41)
[2021-03-28] MEDS: FLUTICASONE/VILANTEROL 200/25MCG 14 PUFFS/INHALER INH SCH (08:27)
[2021-03-28] MEDS: lisinopril 10 MG TAB PO SCH (08:28)
[2021-03-28] MEDS: SODIUM CHLORIDE 1 GM TABLET PO SCH (08:28)
[2021-03-28] MEDS: MAGNESIUM OXIDE 400 MG TAB PO SCH (08:28)
[2021-03-28] MEDS: PRAVASTATIN SOD 40 MG TAB PO SCH (08:28)
[2021-03-28] MEDS: LIOTHYRONINE SODIUM 5 MCG TAB PO SCH (08:28)
[2021-03-28] MEDS: MULTIVITAMIN TAB PO SCH (08:28)
[2021-03-28] MEDS: PANTOprazole 40 MG TAB PO SCH (08:28)
[2021-03-28] MEDS: FLECAINIDE ACETATE 100 MG TABLET PO SCH (08:28)
[2021-03-28] MEDS: VERAPAMIL HCL 240 MG TABCR PO SCH (08:28)
[2021-03-28] MEDS: APIXABAN 5 MG TABLET PO SCH (08:28)
[2021-03-28 11:18] VITALS: TEMP 98.2; O2SAT 94
[2021-03-28 12:35] VITALS: BP 123/75; PULSE 76
--- NOTE | 2021-03-28 12:41 | Discharge Summary ---
Date of Service March 28, 2021 Admission HPI Per Admitting Provider History obtained from patient, family, and records. Limited history from patient secondary to lethargy. Medical history significant for CAD status post stent, A. fib on Eliquis, recurrent metastatic SCLC sp chemoradiation,hx CVA, chronic respiratory failure secondary to COPD, RAKESH on CPAP, chronic hyponatremia, SIADH, prediabetes, chronic anemia (baseline hemoglobin 10-11), schizoaffective/mood disorder, hypothyroidism, prediabetes, history esophageal dysmotility as per records, past tobacco abuse. Last confinement January 2021 for hyponatremia secondary to SIADH. Patient looks different yesterday as per brother. Not talking a lot. Somewhat confused and lethargic. Cough symptoms noted at the ER by staff. Patient given Zosyn at the ER for sepsis. Medical History as above Surgical History : Breast biopsy, bunion surgery, dental surgery, gynecologic procedure, sebaceous cyst removal Family History : Breast cancer, COPD Personal/Social history : Past tobacco abuse, occasional EtOH intake, disabled, lives with son Admission Exam Per Admitting Provider GENERAL: uncomfortable, incoherent, occasional coughing, no respiratory distress SKIN: Pallor, warm HEENT: Sparse hair, pale palpebral conjunctivae, no ptosis, dry buccal mucosa NECK : Supple, no tenderness CHEST : Decreased breath sounds, no tenderness HEART : Tachycardic, no obvious murmurs ABDOMEN: Some distention, nontender RECTAL : Intact sphincter, brown stool (FOBT negative) EXTREMITIES : No LE swelling/tenderness, no other conspicuous deformities noted NEUROLOGIC : Incoherent, no facial asymmetry, gait and stance not assessed Principal Diagnosis Acute metabolic encephalopathy Hyponatremia Urinary tract infection Left upper arm cellulitis Discharge Exam Constitutional + well hydrated; no acute distress Eyes PERRL, conjunctivae normal, anicteric sclerae ENMT external ear and nose normal, oropharynx normal Respiratory normal respiratory effort, lungs clear to auscultation Cardiovascular Rate/Rhythm: regular rate and regular rhythm S1 S2 Gastrointestinal (Abdomen) normal bowel sounds, soft, nontender, no hepatosplenomegaly Musculoskeletal no cyanosis or clubbing, extremities motor strength 5/5 Neurologic PERRL, EOMI, accommodation nl, no face palsy, no dysarthria Psychiatric A+Ox3, euthymic affect Discharge Data Allergies Allergy/AdvReac Type Severity Reaction Status Date / Time Beta-Blockers Allergy Severe Confusion; Verified 03/21/21 19:12 (Beta-Adrenergic Bloc Diarrhea; Rash tetracycline Allergy Intermediate RASH; Verified 03/21/21 19:12 "MYCINS" ALLERGY clindamycin Allergy Unknown "MYCINS" Verified 03/21/21 19:12 ALLERGY diltiazem Allergy Unknown ? Verified 03/21/21 19:12 Sulfa (Sulfonamide Allergy Unknown Unknown Verified 03/21/21 19:12 Antibiotics) sumatriptan Allergy Unknown "TRIPTANS" Verified 03/21/21 19:12 ALLERGY morphine Allergy Unknown Verified 03/21/21 19:12 codeine AdvReac Severe SYNCOPE Verified 03/21/21 19:12 PER PATIENT oxycodone AdvReac Mild GI UPSET Verified 03/21/21 19:12 Consultations 03/21/21 19:53 ED Decision to Admit Stat 03/21/21 23:19 Consult Nephrology Routine Ordered Studies 03/21/21 17:32 CT head/brain wo con Stat Hospital Course (1) Metabolic encephalopathy: Multifactorial mostly due to Hyponatremia, UTI- E coli CT head showed no hemorrhage, mass effect, or evidence of acute territorial ischemia Na on admission 120 UA Positive for Leukocytes and Nitrite CXR negative Hyponatremia History of chronic hyponatremia, known hx of SIADH Sodium of 120 on admission Na improved to 133 Was comanaged with Nephrology Continue fluid restriction, continue salt tablet Urea now stopped Lasix stopped for now per nephrology E coli UTI UA positive for Leukocytes and bacteria Urine cx positive Ecoli Left upper arm cellulitis Improving continue Cefazolin IV Discharged on Cephalexin x 3 more days (provided 2 day supply by our pharm prior to dc as patient's pharm do not open till tuesday. 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 underlying infection? check peripheral smear: The findings are that of non-specific pancytopenia apparently with a component of iron deficiency anemia. Low levels of ovalocytes may be seen in iron deficiency. No overt changes of myelodysplasia or hemolysis are noted. - improving PCP/Dredging Inspector to monitor Small cell carcinoma of lung S/p 4 cycles of carboplatin and etoposide with radiation completed 02/21/2020 as well as prophylactic cranial radiation Recent PET scan from December 2020 shows new metabolically active hepatic metastasis and new lung nodules and metabolically active mediastinal lymphadenopathy. now considered incurable disease Follows with Dr. Gaurav Chronic respiratory failure with hypoxia COPD In setting of COPD Continue O2 supplementation 2L NC, home inhalers Paroxysmal Atrial fibrillation Rate and rhythm controlled on flecainide Anticoagulated with Eliquis Abnormal CT head finding during last admission per Dr. Bonilla's notes: No focal neuro deficit currently CT head on last admission showed interval development of small focal area of increased attenuation adjacent to the posterior aspect of the falx which was not seen on on recent prior study, might represent developing calcifications, however small bleeding cannot be completely ruled out. Repeat CT head on 02/04 showed no change in the 4 mm hyperdense focus within the right high convexity. This could represent calcification or a small hyperdense lesion rather than intraparenchymal hemorrhage given the stability. MRI on 02/05 showed redemonstration of a subtle nodular focus within the right parietal lobe near the high convexity with minimal surrounding edema. This demonstrates hypointense signal with possible restricted diffusion. This remains nonspecific but is concerning for a small lesion could represent a metastatic focus. Small focus of intracranial hemorrhage is considered less likely but not entirely excluded. No acute infarct. Recent CT head on this admission showed the tiny hyperdense focus along the high right posterior midline falx is unchanged compare to the Imaging 6 weeks ago Continue outpatient follow up Hypertension Continue lisinopril and Verapmil Continue monitor BP History of CVA Continue asa, statin No current deficits Hypothyroidism TSH wnl Continue levothyroxine, thiothixene, Liothyronine Depression bupropion RAKESH Continue Bipap HS Total Time Total Time Spent Total Time Spent (In Minutes): 40 Total Time Includes: Examination of the Patient, Discharge Planning and Medication Reconciliation Discharge Plan Discharge Items Patient Disposition: Home - Self-Care Reason For Visit: ENCEPHALOPATHY, SEPSIS Discharge Diagnosis: ENCEPHALOPATHY SECONDARY TO UTI, HYPONATREMIA LEFT UPPER ARM CELLULITIS Activity: As commented below Activity Comment: RESUME GRADUALLY TOLERATED Driving/Machine Use: NO DRIVING UNTIL RE-EVALUATED AND ALLOWED BY PRIMARY CARE PHYSICIAN Non-emergency contact: Primary Care Provider Call non-emergency contact if: you have any medication questions, your symptoms worsen, your pain is not controlled, your pain is worsening, your pain is unusual for you, your pain is concerning for you and you have a fever Follow-up/Referrals: Donavan Matson MD [Surgeon] - Dmitry Roland DO [Primary Care Provider] - 03/30/21 11:20 am (Dr. Judd will be seeing you for this appointment) Diet: Regular Fluids: 1200ml (5 cups) Addtl Attending Provider Instructions: PLEASE REVIEW YOUR NEW MEDICATION LIST AND FOLLOW INSTRUCTIONS CAREFULLY. STRICTLY OBSERVE FLUID RESTRICTION OF 1.2 L PER DAY. CALL PRIMARY CARE PHYSICIAN OR RETURN TO THE ER IMMEDIATELY IF WITH WORSENING OF SYMPTOMS, INCLUDING CONFUSION, FEVER/CHILLS, ARM SWELLING/PAIN, ETC. FOLLOW UP WITH PRIMARY CARE PHYSICIAN NEXT WEEK OUTLINED ABOVE. FOLLOW UP WITH FUR OPERATOR DR. MATSON IN 2 WEEKS. Pending Studies at Discharge: No Stand-Alone Forms: My [facility] [place], Smoking Cessation Medications and DC Order Prescriptions: New cephalexin 500 mg capsule 500 mg PO QID 3 Days Qty: 12 RF: 0 Continued calcium carbonate [Calcium 500] 500 mg calcium (1,250 mg) tablet 500 mg PO DAILY RF: 0 magnesium oxide 400 mg magnesium capsule 400 mg PO DAILY RF: 0 metformin 1,000 mg tablet 1,000 mg PO BID RF: 0 verapamil 240 mg capsule,ext rel. pellets 24 hr 240 mg PO DAILY RF: 0 (DME) Oxygen Home Liters Per Minute See Rx Instructions .ROUTE .MEDSUPPLY Qty: 1 RF: 0 liothyronine [Cytomel] 5 mcg tablet 5 mcg PO BID RF: 0 multivitamin Tablet 1 tab PO DAILY RF: 0 fluticasone propionate [Flonase Allergy Relief] 50 mcg/actuation spray,suspension 2 sprays INTNAS DAILY PRN (Reason: allergy symptoms) RF: 0 apixaban 5 mg tablet 5 mg PO BID Qty: 180 RF: 0 flecainide 100 mg tablet 100 mg PO BID Qty: 180 RF: 0 omeprazole 20 mg capsule,delayed release(DR/EC) 20 mg PO BID RF: 0 montelukast 10 mg tablet 10 mg PO HS RF: 0 albuterol sulfate [Ventolin HFA] 90 mcg/actuation HFA aerosol inhaler 2 puffs INH Q6H PRN (Reason: Shortness Of Breath Or Wheezing) RF: 0 thiothixene 5 mg capsule 5 mg PO DAILY RF: 0 fluticasone propion-salmeterol [Wixela Inhub] 500-50 mcg/dose Blister With Device 1 inh INHALATION Q12H RF: 0 lisinopril 10 mg Tablet 10 mg PO BID Qty: 60 RF: 0 sennosides-docusate sodium [Senokot-S] 8.6-50 mg Tablet 1 tab PO QAM PRN (Reason: constipation) Qty: 30 RF: 0 pravastatin 80 mg tablet 80 mg PO DAILY RF: 0 aspirin 81 mg Tablet,Delayed Release (Dr/Ec) 162 mg PO HS Qty: 30 RF: 3 bupropion HCl 200 mg tablet sustained-release 12 hr 200 mg PO DAILY RF: 0 levothyroxine 125 mcg tablet 125 mcg PO DAILYBB RF: 0 sodium chloride 1,000 mg Tablet,Soluble 1,000 mg PO BID RF: 0 ondansetron HCl 8 mg tablet 8 mg PO TID PRN (Reason: nausea/vomiting) Qty: 30 RF: 0 Discontinued furosemide 20 mg tablet 20 mg PO BID Qty: 60 RF: 0 urea 15 gram Powder In Packet 1 packet PO BID Qty: 60 RF: 0 Discharge Orders: Discharge Order (Routine); Ordered 03/28/21 Ordered By: Cindy Santiago/Other Patient Handouts: Urinary Tract Infections in Women Admission Data Admit Date/Time: 03/21/21 23:15 Attending Provider: Cindy Fields I. Admit Provider: Ryland Salazar Primary Care Provider: Dmitry Roland Other Providers: Rlyand Salazar ; Lu [place] ; Donavan Matson Elissa R. ; Silvia Guerrero Japheth E. ; Tayla Desouza ; Miguelito Bonilla ; Reji Dos Santos Other Interventions: Discharge Summary Assessment (RN) Last Done: 03/28/21 12:33
[2021-03-28] MEDS: HEPARIN 100 UNIT/ML 5ML FLUSH FLUSH PRN (13:53)
== END 2021-03-28 14:45 | disposition home or self-care (01) | DRG 871 ==
LOC: ED 17:25 → SUATTDRO 23:15 → 2W 03-22 02:01
DX: F32.9 Major depressive disorder, single episode, unspecified; J44.9 Chronic obstructive pulmonary disease, unspecified; C34.90 Malignant neoplasm of unspecified part of unspecified bronchus or lung; A41.9 Sepsis, unspecified organism; I48.0 Paroxysmal atrial fibrillation; L03.114 Cellulitis of left upper limb; Z87.891 Personal history of nicotine dependence; E22.2 Syndrome of inappropriate secretion of antidiuretic hormone; Z79.84 Long term (current) use of oral hypoglycemic drugs; J69.0 Pneumonitis due to inhalation of food and vomit; N39.0 Urinary tract infection, site not specified; J96.11 Chronic respiratory failure with hypoxia; Z99.81 Dependence on supplemental oxygen; Z86.73 Personal history of transient ischemic attack (TIA), and cerebral infarction without residual deficits; Z79.82 Long term (current) use of aspirin

== ENCOUNTER 2021-08-05 23:33 | Inpatient (IN) ==
--- NOTE | 2021-08-05 23:57 | Emergency Department Note ---
Impression & Plan Fracture of hip, left, closed, Respiratory failure Admit to the [facility] service ED Provider Note NAME: ROBERT TERRAZAS AGE: 60 SEX: F ARRIVES VIA: Ambulance INFORMANT: Patient ED PROVIDER(S): Xiomara Guzman DO CHIEF COMPLAINT: Left hip pain and shortness of breath PLAN: Disposition: Admit to the [facility] Condition: Stable MEDICAL DECISION MAKING: This is a 60-year-old female patient with an extensive past medical history who presents to the emergency department with left hip pain after a fall. Patient describes worsening shortness of breath over the past 3 weeks. She has had increasing left hip pain due to physical therapy she has been receiving in her home. Tonight the pain became more severe and her left leg seemed to collapse under her. She fell to the ground and could not bear weight on her left leg. X-ray reveals evidence of a left hip fracture. Patient also describes worsening shortness of breath. She was noted to be 70% oxygen saturation on her usual 4 L by nasal cannula. Triage Nursing notes reviewed and agree with them. Additional history obtained from EMS Prior medical records reviewed Vital Signs: reviewed and remarkable for hypoxia, tachycardia, tachypnea Differential diagnosis: Hip fracture, pneumonia, CHF, COVID-19 Diagnostics interpreted by me: ECG: Atrial fibrillation with rapid ventricular response with a rate of 158. There is no ST segment elevation or signs of ischemia. There is no ectopy. Cardiac Monitoring: A. fib at a rate of 142 Laboratory studies: See below Imaging studies: As per my interpretation Left hip x-ray: Intertrochanteric hip fracture with impaction. Portable chest x-ray: Significant rotation with no obvious consolidation or pulmonary edema. HPI: 60/F arrives for evaluation of left hip pain. The patient describes increasing left hip pain over the past couple of days secondary to doing physical therapy at home. Tonight, the left hip pain dramatically increased and her left leg seem to collapse on her when she fell to the ground. Patient also describes worsening shortness of breath over the past 3 weeks. ROS: See above HPI for pertinent positives & negatives. A total of 10 systems reviewed and were otherwise negative. PAST MEDICAL HISTORY:See Below PAST SURGICAL HISTORY:See Below FAMILY HISTORY:See Below SOCIAL HISTORY:See Below HOME MEDICATIONS:See list ALLERGIES:See list VITALS:See Below PHYSICAL EXAMINATION: HEENT: Head - normocephalic and atraumatic Pupils are equal, round, and reactive to light. Extraocular eye muscles are intact, and sclera are anicteric. Nose - moist nasal mucosa without discharge. Mouth - moist buccal mucosa. Oropharynx is nonerythematous and there is no tonsillar exudate or edema noted. Neck: Supple; no JVD, nuchal rigidity, cervical lymphadenopathy, or auscultated bruits. Heart: Tachycardic rate and and irregular rhythm. There is a normal S1 and S2 with no murmurs, clicks, or gallops appreciated. Lungs: Diminished breath sounds in all lung nolan Abdomen: Soft, completely nontender, nondistended, with good bowel sounds. There are no palpable pulsatile masses or hepatosplenomegaly. There is no guarding, rigidity, or rebound noted. Extremities: No evidence of cyanosis, clubbing, or edema. There is moderate pain to palpation over the left lateral hip. Both feet are extremely cold to touch. I could not palpate pulses in either feet. However there was capillary refill of 4-5 seconds in the toes of both feet. Skin: warm and dry with good turgor and no rashes. ED COURSE: Times/Reassessments: 2335: Patient was evaluated in room A4. History and physical was performed. Patient was immediately placed on supplemental oxygen which brought saturations up into the 90s. An order was placed for continuous cardiac monitoring. The patient was in an atrial fibrillation with rapid ventricular response at a rate of 142. A twelve-lead EKG was obtained. The patient had plain films of the left hip and a portable chest x-ray. She declined wanting anything for pain. Patient's O2 saturations remained stable. [facility] for further management. Xiomara Guzman DO Past Med/Surg History Medical History (Updated 08/06/21 @ 05:27 by Xiomara Guzman DO) Abnormal mammography CAD (coronary artery disease) Chronic hyponatremia Common migraine without aura Contusion of left hip Diaphragmatic hernia Diverticulosis of colon Dizziness DS (disseminated sclerosis) Dyslipidemia Dysmetabolic syndrome X Eczema Encounter for pre-operative examination GERD (gastroesophageal reflux disease) Hearing loss HTN (hypertension) Hyponatremia Memory loss Migraines Neuropathy Non-occlusive coronary artery disease Old anteroseptal myocardial infarction (2004) Osteoporosis, unspecified Presence of stent in LAD coronary artery (2005) Schizoaffective disorder SIADH (syndrome of inappropriate ADH production) Small cell carcinoma of lung Unspecified osteomyelitis, ankle and foot Surgical History History of bunionectomy History of colonoscopy History of coronary angioplasty Stent by Dr. Bryan History of tubal ligation History of wisdom tooth extraction Family History Father , 56yo Hypertension Liver cancer Migraines Mother , at 65yo Breast cancer Diabetes Hypertension Emphysema lung Brother No problems noted. Sister Diabetes Liver cancer H/O liver transplant Hypertension Son No problems noted. 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 Beliefs That Will Affect Care: None marital status: Current Living Situation: Alone Current Living Situation Comment: House no steps into home, into bedroom or into bathroom current occupational status: unemployed current occupation: On disability How many Children do You have: 2 Feels Safe at Home: Yes Diet Comment: High protein diet, fluid restriction, diabetic diet; caffeine: No during the past year weight has: decreased > 10 lbs Assistive Devices: Oxygen - Continuous and Walker Allergies Allergies Allergy/AdvReac Type Severity Reaction Status Date / Time Beta-Blockers Allergy Severe Confusion; Verified 07/23/21 09:48 (Beta-Adrenergic Bloc Diarrhea; Rash tetracycline Allergy Intermediate RASH; Verified 07/23/21 09:48 "MYCINS" ALLERGY clindamycin Allergy Unknown "MYCINS" Verified 07/23/21 09:48 ALLERGY diltiazem Allergy Unknown ? Verified 07/23/21 09:48 Sulfa (Sulfonamide Allergy Unknown Unknown Verified 07/23/21 09:48 Antibiotics) sumatriptan Allergy Unknown "TRIPTANS" Verified 07/23/21 09:48 ALLERGY morphine Allergy Unknown Verified 07/23/21 09:48 codeine AdvReac Severe SYNCOPE Verified 07/23/21 09:48 PER PATIENT oxycodone AdvReac Mild GI UPSET Verified 07/23/21 09:48 Home Meds Home Medications Medication Instructions Recorded Confirmed apixaban 5 mg tablet 5 mg PO BID #180 tab 03/14/19 07/23/21 flecainide 100 mg tablet 100 mg PO BID #180 tab 03/14/19 07/23/21 montelukast 10 mg tablet 10 mg PO HS tab 03/14/19 07/23/21 omeprazole 20 mg capsule,delayed 20 mg PO BID cap 03/14/19 07/23/21 release albuterol sulfate 90 mcg/actuation 2 puffs INH Q6H PRN 03/27/19 07/23/21 aerosol inhaler (Ventolin HFA) Oxygen Home #1 ea 11/20/19 07/23/21 calcium carbonate 500 mg calcium 500 mg PO DAILY 11/20/19 07/23/21 (1,250 mg) tablet (Calcium 500) liothyronine 5 mcg tablet (Cytomel) 5 mcg PO BID tab 11/20/19 07/23/21 magnesium oxide 400 mg PO DAILY 11/20/19 07/23/21 metformin 1,000 mg tablet 1,000 mg PO BID 11/20/19 07/23/21 multivitamin 1 tab PO DAILY 11/20/19 07/23/21 verapamil 240 mg 24 hr 240 mg PO DAILY 11/20/19 07/23/21 capsule,extended release fluticasone propionate 50 2 sprays INTNAS DAILY PRN 11/22/19 07/23/21 mcg/actuation nasal spray,suspension (Flonase Allergy Relief) thiothixene 5 mg capsule 5 mg PO DAILY cap 11/22/19 07/23/21 pravastatin 80 mg tablet 80 mg PO DAILY 07/21/20 07/23/21 fluticasone 500 mcg-salmeterol 50 1 inh INHALATION Q12H 10/01/20 07/23/21 mcg/dose blistr powdr for inhalation (Emelynxela Inhub) sodium chloride 1,000 mg soluble 1,000 mg PO BID 02/02/21 07/23/21 tablet bupropion HCl 200 mg tablet,12 hr 200 mg PO DAILY 03/21/21 07/23/21 sustained-release levothyroxine 125 mcg tablet 125 mcg PO DAILYBB 03/21/21 07/23/21 acetaminophen 500 mg tablet 1,000 mg PO Q6H PRN tab 07/23/21 07/23/21 (Tylenol Extra Strength) Previous Rx's Medication Instructions Recorded sennosides 8.6 mg-docusate sodium 1 tab PO QAM PRN #30 tab 11/12/19 50 mg tablet (Senokot-S) aspirin 81 mg tablet,delayed 162 mg PO HS #30 tab 07/22/20 release lisinopril 10 mg tablet 10 mg PO BID #60 tab 10/05/20 ondansetron HCl 8 mg tablet 8 mg PO TID PRN #30 tab 02/05/21 Results & Data (ED) Vital Signs Vital Signs - 24 hr 08/05/21 23:42 08/05/21 23:48 08/06/21 00:03 Pulse Rate 114 H 149 H 142 H Pulse Rate [Right Finger] 113 H Pulse Rhythm Irregular Irregular Pulse Rhythm [Right Finger] Respiratory Rate 28 H 30 H 28 H Blood Pressure 149/95 H Blood Pressure [Right Arm] 149/95 H Blood Pressure Mean 113 Blood Pressure Mean [Right Arm] 113 Pulse Oximetry 100 100 100 Oxygen Delivery Method Non-rebreather Non-rebreather Non-rebreather Oxygen Flow Rate 11 9 11 Sepsis Recent Fever Within 48 Hours No Sepsis New/Unexplained Change in Mental Status No Sepsis Action Taken by Nursing Physician Notified 08/06/21 01:30 08/06/21 02:31 08/06/21 03:14 Pulse Rate 140 H Pulse Rate [Right Finger] 138 H 130 H Pulse Rhythm Pulse Rhythm [Right Finger] Irregular Irregular Respiratory Rate 24 22 Blood Pressure Blood Pressure [Right Arm] 143/88 H 142/97 H Blood Pressure Mean Blood Pressure Mean [Right Arm] 106 112 Pulse Oximetry 100 100 Oxygen Delivery Method Non-rebreather Non-rebreather Oxygen Flow Rate 8 8 Sepsis Recent Fever Within 48 Hours Sepsis New/Unexplained Change in Mental Status Sepsis Action Taken by Nursing 08/06/21 04:35 08/06/21 04:49 Pulse Rate Pulse Rate [Right Finger] 114 H 105 H Pulse Rhythm Pulse Rhythm [Right Finger] Respiratory Rate 22 22 Blood Pressure Blood Pressure [Right Arm] 150/86 H 150/86 H Blood Pressure Mean Blood Pressure Mean [Right Arm] 107 107 Pulse Oximetry 99 99 Oxygen Delivery Method Non-rebreather Non-rebreather Oxygen Flow Rate 6 6 Sepsis Recent Fever Within 48 Hours Sepsis New/Unexplained Change in Mental Status Sepsis Action Taken by Nursing Laboratory Data Result diagrams: 08/06/21 00:17 08/06/21 00:17 Lab Results 08/06/21 08/06/21 08/06/21 Range/Units 00:17 00:17 01:40 WBC 10.21 (4.8-10.8) K/uL RBC 3.64 L (4.2-5.4) M/uL Hgb 9.5 L (12.0-16.0) g/dL Hct 31.7 L (37-47) % MCV 87.1 (80-100) fL MCH 26.1 (25-34) pg MCHC 30.0 L (32-36) g/dL RDW Std Deviation 64.7 H (36.4-46.3) fL RDW Coeff of Chepe 20.4 H (11.5-14.5) % Plt Count 261 (130-400) K/uL MPV 10.8 H (7.4-10.4) fL Immature Gran % (Auto) 0.3 % Neut % (Auto) 85.6 % Lymph % (Auto) 4.7 % Clinton % (Auto) 9.3 % Eos % (Auto) 0.0 % Baso % (Auto) 0.1 % Neut # (Auto) 8.74 H (1.4-6.5) K/uL Lymph # (Auto) 0.48 L (1.2-3.4) K/uL Clinton # (Auto) 0.95 H (0.11-0.59) K/uL Eos # (Auto) 0.00 (0-0.5) K/uL Baso # (Auto) 0.01 (0-0.2) K/uL Immature Gran # (Auto) 0.03 H (0.00-0.02) K/uL Polychromasia 1+ Anisocytosis Present Ovalocytes 1+ Stomatocytes 1+ APTT (21.0-31.0) Seconds PTT Ratio ABG pH (7.35-7.45) ABG pCO2 (35-46) mmHg ABG pO2 (80-95) mmHg ABG HCO3 (19-24) mmol/L ABG O2 Saturation (90-95) % ABG Base Excess (-9-1.8) mEq/L Edinson Test (Pos) Barometric Pressure mm/Hg Oxygen Given Sodium 133 L (136-145) mmol/L Potassium 4.1 (3.5-5.1) mmol/L Chloride 97 L (98-107) mmol/L Carbon Dioxide 32 (21-32) mmol/L Anion Gap 4.0 (3-11) BUN 15 (7-18) mg/dl Creatinine 0.42 L (0.6-1.2) mg/dl Est Cr Clr Drug Dosing 119.5 ml/min Est GFR ( Amer) 127.3 ml/min Est GFR (Non-Af Amer) 109.9 ml/min BUN/Creatinine Ratio 36.9 H (10-20) Glucose 141 H (70-99) mg/dl Calcium 9.2 (8.5-10.1) mg/dl Magnesium 1.8 (1.8-2.4) mg/dl Total Bilirubin 0.4 (0.2-1) mg/dl AST 86 H (15-37) U/L ALT 50 (12-78) Alkaline Phosphatase 205 H D (45-117) U/L Troponin I < 0.015 (0-0.045) ng/ml NT-Pro-B Natriuret Pep 3661 H (0-900) pg/ml Total Protein 6.8 (6.4-8.2) gm/dl Albumin 3.1 L (3.4-5.0) gm/dl Globulin 3.7 (2.5-4.0) gm/dl Albumin/Globulin Ratio 0.8 L (0.9-2) TSH 3.690 (0.300-4.500) uIu/ml Urine Color Dark Yellow Urine Appearance Clear (Clear) Urine pH 5.5 (4.5-7.5) Ur Specific Egan 1.020 (1.000-1.030) Urine Protein Trace H (Negative) Urine Glucose (UA) Negative (Negative) Urine Ketones Negative (Negative) Urine Blood Negative (Negative) Urine Nitrite Positive A (Negative) Urine Bilirubin Negative (Negative) Urine Urobilinogen Negative (Negative) Ur Leukocyte Esterase Negative (Negative) Urine WBC (Auto) 0 (0-5) /hpf Urine RBC (Auto) 0-4 (0-4) /hpf U Hyaline Cast (Auto) 0 (0-5) /lpf U Epithel Cells (Auto) 0-5 (0-5) /lpf Urine Bacteria (Auto) 4+ H (Negative) SARS-CoV-2, RNA, NAAT (NEGATIVE) 08/06/21 08/06/21 08/06/21 Range/Units 02:33 03:43 03:59 WBC (4.8-10.8) K/uL RBC (4.2-5.4) M/uL Hgb (12.0-16.0) g/dL Hct (37-47) % MCV (80-100) fL MCH (25-34) pg MCHC (32-36) g/dL RDW Std Deviation (36.4-46.3) fL RDW Coeff of Chepe (11.5-14.5) % Plt Count (130-400) K/uL MPV (7.4-10.4) fL Immature Gran % (Auto) % Neut % (Auto) % Lymph % (Auto) % Clinton % (Auto) % Eos % (Auto) % Baso % (Auto) % Neut # (Auto) (1.4-6.5) K/uL Lymph # (Auto) (1.2-3.4) K/uL Clinton # (Auto) (0.11-0.59) K/uL Eos # (Auto) (0-0.5) K/uL Baso # (Auto) (0-0.2) K/uL Immature Gran # (Auto) (0.00-0.02) K/uL Polychromasia Anisocytosis Ovalocytes Stomatocytes APTT 26.5 (21.0-31.0) Seconds PTT Ratio 1.0 ABG pH 7.28 L (7.35-7.45) ABG pCO2 64 H (35-46) mmHg ABG pO2 91 (80-95) mmHg ABG HCO3 29 H (19-24) mmol/L ABG O2 Saturation 96.1 H (90-95) % ABG Base Excess 1.5 (-9-1.8) mEq/L Edinson Test Pos (Pos) Barometric Pressure 734.4 mm/Hg Oxygen Given ROOM AIR Sodium (136-145) mmol/L Potassium (3.5-5.1) mmol/L Chloride (98-107) mmol/L Carbon Dioxide (21-32) mmol/L Anion Gap (3-11) BUN (7-18) mg/dl Creatinine (0.6-1.2) mg/dl Est Cr Clr Drug Dosing ml/min Est GFR ( Amer) ml/min Est GFR (Non-Af Amer) ml/min BUN/Creatinine Ratio (10-20) Glucose (70-99) mg/dl Calcium (8.5-10.1) mg/dl Magnesium (1.8-2.4) mg/dl Total Bilirubin (0.2-1) mg/dl AST (15-37) U/L ALT (12-78) Alkaline Phosphatase (45-117) U/L Troponin I (0-0.045) ng/ml NT-Pro-B Natriuret Pep (0-900) pg/ml Total Protein (6.4-8.2) gm/dl Albumin (3.4-5.0) gm/dl Globulin (2.5-4.0) gm/dl Albumin/Globulin Ratio (0.9-2) TSH (0.300-4.500) uIu/ml Urine Color Urine Appearance (Clear) Urine pH (4.5-7.5) Ur Specific Egan (1.000-1.030) Urine Protein (Negative) Urine Glucose (UA) (Negative) Urine Ketones (Negative) Urine Blood (Negative) Urine Nitrite (Negative) Urine Bilirubin (Negative) Urine Urobilinogen (Negative) Ur Leukocyte Esterase (Negative) Urine WBC (Auto) (0-5) /hpf Urine RBC (Auto) (0-4) /hpf U Hyaline Cast (Auto) (0-5) /lpf U Epithel Cells (Auto) (0-5) /lpf Urine Bacteria (Auto) (Negative) SARS-CoV-2, RNA, NAAT NEGATIVE (NEGATIVE) Administered Medications Magnesium Sulfate/Dextrose (Magnesium Sulfate / D5w) 1 gm in 100 mls @ 50 mls/ hr IV Q2H LEROY Stop: 08/06/21 08:29 Last Admin: 08/06/21 05:04 Dose: 50 mls/hr Documented by: [id number] Discontinued Medications Flecainide Acetate (Flecainide Acetate 100 Mg Tablet) 100 mg PO NOW STA Stop: 08/06/21 03:36 Last Admin: 08/06/21 05:03 Dose: 100 mg Documented by: [id number] Furosemide (Furosemide Inj 20 Mg/2 Ml Vial) 20 mg IV ONE STA Stop: 08/06/21 04:37 Last Admin: 08/06/21 05:04 Dose: 20 mg Documented by: [id number] Sodium Chloride (Nss) 500 mls @ 999 mls/hr IV .Q31M ONE Stop: 08/06/21 01:20 Last Infusion: 08/06/21 03:56 Dose: 0 mls/hr Documented by: [id number] Admin: 08/06/21 02:21 Dose: 999 mls/hr Documented by: [id number] Digoxin 250 mcg/ Syringe 10 mls @ 2 mls/min IV NOW STA Stop: 08/06/21 02:26 Last Admin: 08/06/21 03:14 Dose: 2 mls/min Documented by: [id number] Cefepime HCl (Maxipime) 2,000 mg in 20 mls @ 5 mls/min IV NOW STA; Protocol Stop: 08/06/21 02:27 Last Admin: 08/06/21 03:15 Dose: 5 mls/min Documented by: [id number] Ioversol (Optiray 320 125ml) 120 ml IV ONCE ONE Stop: 08/06/21 04:28 Last Admin: 08/06/21 04:28 Dose: 1 ml Documented by: [id number] Ipratropium Sylvester (Ipratropium Sylvester Neb Soln 0.02% 2.5 Ml Vial) 0.5 mg INH ONE STA Stop: 08/06/21 03:54 Last Admin: 08/06/21 04:29 Dose: 0.5 mg Documented by: [id number] Levalbuterol HCl (Levalbuterol 1.25mg/0.5ml Neb) 1.25 mg INH ONE STA Stop: 08/06/21 03:55 Last Admin: 08/06/21 04:29 Dose: 1.25 mg Documented by: [id number] Methylprednisolone (Methylprednisolone 40 Mg/Ml Vial) 40 mg IV ONE STA Stop: 08/06/21 02:40 Last Admin: 08/06/21 03:14 Dose: 40 mg Documented by: [id number] Verapamil HCl (Verapamil Hcl 2.5 Mg/Ml 2 Ml Vial) 5 mg IV NOW STA Stop: 08/06/21 02:38 Last Admin: 08/06/21 04:34 Dose: 5 mg Documented by: [id number] Discharge Plan Visit Data Chief Complaint: Hip Pain Stated Complaint: FALL W/ LT. HIP PAIN ED Provider: Xiomara Guzman Discharge Problem: Fracture of hip, left, closed, Respiratory failure Forms Stand Alone Forms: [facility] Prescriptions Prescriptions: No Action calcium carbonate [Calcium 500] 500 mg calcium (1,250 mg) tablet 500 mg PO DAILY RF: 0 magnesium oxide 400 mg magnesium capsule 400 mg PO DAILY RF: 0 metformin 1,000 mg tablet 1,000 mg PO BID RF: 0 verapamil 240 mg capsule,ext rel. pellets 24 hr 240 mg PO DAILY RF: 0 (DME) Oxygen Home Liters Per Minute See Rx Instructions .ROUTE .MEDSUPPLY Qty: 1 RF: 0 liothyronine [Cytomel] 5 mcg tablet 5 mcg PO BID RF: 0 multivitamin Tablet 1 tab PO DAILY RF: 0 fluticasone propionate [Flonase Allergy Relief] 50 mcg/actuation spray,suspension 2 sprays INTNAS DAILY PRN (Reason: allergy symptoms) RF: 0 acetaminophen [Tylenol Extra Strength] 500 mg tablet 1,000 mg PO Q6H PRNRF: 0 apixaban 5 mg tablet 5 mg PO BID Qty: 180 RF: 0 flecainide 100 mg tablet 100 mg PO BID Qty: 180 RF: 0 omeprazole 20 mg capsule,delayed release(DR/EC) 20 mg PO BID RF: 0 montelukast 10 mg tablet 10 mg PO HS RF: 0 albuterol sulfate [Ventolin HFA] 90 mcg/actuation HFA aerosol inhaler 2 puffs INH Q6H PRN (Reason: Shortness Of Breath Or Wheezing) RF: 0 thiothixene 5 mg capsule 5 mg PO DAILY RF: 0 fluticasone propion-salmeterol [Wixela Inhub] 500-50 mcg/dose Blister With Device 1 inh INHALATION Q12H RF: 0 lisinopril 10 mg Tablet 10 mg PO BID Qty: 60 RF: 0 sennosides-docusate sodium [Senokot-S] 8.6-50 mg Tablet 1 tab PO QAM PRN (Reason: constipation) Qty: 30 RF: 0 pravastatin 80 mg tablet 80 mg PO DAILY RF: 0 aspirin 81 mg Tablet,Delayed Release (Dr/Ec) 162 mg PO HS Qty: 30 RF: 3 bupropion HCl 200 mg tablet sustained-release 12 hr 200 mg PO DAILY RF: 0 levothyroxine 125 mcg tablet 125 mcg PO DAILYBB RF: 0 sodium chloride 1,000 mg Tablet,Soluble 1,000 mg PO BID RF: 0 ondansetron HCl 8 mg tablet 8 mg PO TID PRN (Reason: nausea/vomiting) Qty: 30 RF: 0 Referrals Referrals: Dmitry Roland DO [Primary Care Provider] - Discharge Problem: Fracture of hip, left, closed Qualifiers: Encounter type: initial encounter Qualified Code(s): S72.002A - Fracture of unspecified part of neck of left femur, initial encounter for closed fracture Respiratory failure Qualifiers: Chronicity: chronic Respiratory failure complication: hypoxia Qualified Code(s): J96.11 - Chronic respiratory failure with hypoxia
[2021-08-06] MEDS ORDERED: SODIUM CHLORIDE 0.9% 500 ML IV ONE (00:50)
[2021-08-06 01:37] LABS: Basophils # (auto) 0.01 K/uL (0-0.2); Basophils % (auto) 0.1 %; Hematocrit (blood only) 31.7 % (37-47); Hemoglobin 9.5 g/dL (12.0-16.0); Immature Granulocytes # (auto) 0.03 K/uL (0.00-0.02); Immature Granulocytes % (auto) 0.3 %; Lymphocytes # (auto) 0.48 K/uL (1.2-3.4); Lymphocytes % (auto) 4.7 %; Mean Corpuscular Hemoglobin 26.1 pg (25-34); Mean Corpuscular Volume 87.1 fL (80-100); Mean Platelet Volume 10.8 fL (7.4-10.4); Monocytes # (auto) 0.95 K/uL (0.11-0.59); Monocytes % (auto) 9.3 %; Neutrophils # (auto) 8.74 K/uL (1.4-6.5); Neutrophils % (auto) 85.6 %; Platelet Count 261 K/uL (130-400); RDW Coefficient of Variation 20.4 % (11.5-14.5); RDW Standard Deviation 64.7 fL (36.4-46.3); Red Blood Count 3.64 M/uL (4.2-5.4); White Blood Count 10.21 K/uL (4.8-10.8)
[2021-08-06 01:55] LABS: Alanine Aminotransferase 50 (12-78); Albumin Level 3.1 gm/dl (3.4-5.0); Aspartate Aminotransferase 86 U/L (15-37); BUN Creatinine Ratio 36.9 (10-20); Blood Urea Nitrogen 15 mg/dl (7-18); Calcium 9.2 mg/dl (8.5-10.1); Carbon Dioxide 32 mmol/L (21-32); Chloride 97 mmol/L (98-107); Creatinine Clr Calc Pharmacy 119.5 ml/min; Est GFR (African American) 127.3 ml/min; Est GFR (Non-African American) 109.9 ml/min; Glucose 141 mg/dl (70-99); Potassium 4.1 mmol/L (3.5-5.1); Sodium 133 mmol/L (136-145)
[2021-08-06 01:59] LABS: Albumin Globulin Ratio 0.8 (0.9-2); Alkaline Phosphatase 205 U/L (45-117); Bilirubin,Total 0.4 mg/dl (0.2-1); Globulin 3.7 gm/dl (2.5-4.0); Total Protein 6.8 gm/dl (6.4-8.2); Troponin I < 0.015 ng/ml (0-0.045)
[2021-08-06 02:01] LABS: Appearance Urine Clear (Clear); Bacteria Urine Automated 4+ (Negative); Bilirubin Urine Negative (Negative); Blood Urine Negative (Negative); Cast Urine Automated 0 /lpf (0-5); Color Urine Dark Yellow; Epithelial Cell Urine Auto 0-5 /lpf (0-5); Glucose Urine UA Negative (Negative); Ketones Urine Negative (Negative); Leukocyte Esterase Urine Negative (Negative); Nitrite Urine Positive (Negative); Protein Urine Trace (Negative); RBC Urine Automated 0-4 /hpf (0-4); Urobilinogen Urine Negative (Negative); WBC Urine Automated 0 /hpf (0-5); pH Urine 5.5 (4.5-7.5)
[2021-08-06 02:06] LABS: Anisocytosis Present; Ovalocytes 1+; Polychromasia 1+; Stomatocytes 1+
[2021-08-06] MEDS ORDERED: DIGOXIN 250 MCG in SYRINGE 9 ML IV STA (02:22)
[2021-08-06] MEDS ORDERED: CEFEPIME 2,000 MG/20 ML VIAL IV STA (02:24)
[2021-08-06] MEDS ORDERED: methylPREDNISolone 40 MG in SYRINGE 0 ML IV STA (02:26)
[2021-08-06] MEDS ORDERED: VERAPAMIL HCL 2.5 MG/ML 2 ML VIAL IV STA (02:37)
[2021-08-06] MEDS ORDERED: FLECAINIDE ACETATE 100 MG TABLET PO STA (03:35)
[2021-08-06] MEDS ORDERED: XOPENEX/ATROVENT 1.25mg/0.5MG NEB COMBO NEB STA (03:35)
--- NOTE | 2021-08-06 03:38 | History & Physical Report ---
Date of Service August 06, 2021 Assessment & Plan (1) Respiratory failure: Plan: Acute on chronic chronic respiratory failure secondary to COPD on home O2, RAKESH on CPAP Multifactorial : COPD exacerbation Mild pulmonary congestion Rule out pulmonary embolism given malignancy history Left hip pain Rule out fracture Complicated UTI History recurrent UTI on methenamine suppression Rx Patient not septic for now Rapid A. fib secondary to illness, missed PM medications On Eliquis for anticoagulation hx CAD status post stent/hx CVA hx recurrent metastatic SCLC sp chemoradiation, off chemotherapy secondary to poor functional status, currently on palliative radiation Chronic hyponatremia, hx SIADH prediabetes on Metformin hemoglobin A1c of 5.8, September 2020 Chronic anemia, hemoglobin at baseline schizoaffective/mood disorder hypothyroidism, euthyroid as of today's TSH past tobacco abuse PCU Supplemental O2 Baseline ABG Steroid, nebs RTC Pulmonary consult if without improvement Lasix [address] chest PE study Re: Hypoxemia CS, Cefepime IV verapamil and digoxin now, facilitate home verapamil and flecainide Cardiology consult if A. fib uncontrolled after initial intervention (Patient known to [facility] CT pelvis RE hip pain N.p.o., bedrest until hip fracture definitely ruled out Patient open to Orthopedics opinion if hip fracture found on imaging DVT prophylaxis. SCDs while Eliquis on hold in anticipation of any procedure. Resume Eliquis if no procedural intervention contemplated. DNR Patient requests for her brother, Mr. Andrade Files to be given periodic updates contact #[phone]. Total critical care time was 40 minutes. Text document was generated using [employer] voice recognition software. It may contain grammatical or spelling errors. Kindly contact undersigned for clarification of any documentation item in question. History of Present Illness Chief Complaint: Fall, left hip pain Primary Care Provider: Dmitry Roland DO History obtained from patient and records. Medical history significant for CAD status post stent, A. fib on Eliquis, recurrent metastatic SCLC sp chemoradiation, hx CVA, chronic respiratory failure secondary to COPD on home O2, RAKESH on CPAP, chronic hyponatremia, SIADH, prediabetes, chronic anemia (baseline hemoglobin 9), schi zoaffective/mood disorder, hypothyroidism, prediabetes, history esophageal dysmotility as per records, recurrent UTIs on methenamine suppression Rx, past tobacco abuse. Last confinement March 2021 for metabolic encephalopathy secondary to E. coli UTI. Few weeks history of shortness of breath worse on exertion. Left-sided chest pain. No cough symptoms. No fluid retention as per patient. Patient also noted left hip pain somewhat worse with motion. Lowest O2 sats on room air was 86% on outpatient exercise oximetry last week. Patient pulmonology provider recommended increased oxygen for daytime use. Patient had worsening left hip pain today causing her to fall down. Patient denies abdominal pain, dysuria complaints, fever, chills. Patient unable to take nighttime meds secondary to not feeling well. O2 sats upon EMS arrival at home 80s on room air. Patient also noted to be in rapid A. fib. Patient brought to the ER for evaluation. Medical Historyas above Surgical History : Breast biopsy, bunion surgery, dental surgery, gynecologic procedure, sebaceous cyst removal Family History : Breast cancer, COPD Personal/Social history : Past tobacco abuse, occasional EtOH intake, disabled Allergies Allergy/AdvReac Type Severity Reaction Status Date / Time Beta-Blockers Allergy Severe Confusion; Verified 08/06/21 07:28 (Beta-Adrenergic Bloc Diarrhea; Rash tetracycline Allergy Intermediate RASH; Verified 08/06/21 07:28 "MYCINS" ALLERGY clindamycin Allergy Unknown "MYCINS" Verified 08/06/21 07:28 ALLERGY diltiazem Allergy Unknown ? Verified 08/06/21 07:28 Sulfa (Sulfonamide Allergy Unknown Unknown Verified 08/06/21 07:28 Antibiotics) sumatriptan Allergy Unknown "TRIPTANS" Verified 08/06/21 07:28 ALLERGY morphine Allergy Unknown Verified 08/06/21 07:28 codeine AdvReac Severe SYNCOPE Verified 08/06/21 07:28 PER PATIENT oxycodone AdvReac Mild GI UPSET Verified 08/06/21 07:28 Home Medications Medication Instructions Recorded Confirmed Type apixaban 5 mg tablet 5 mg PO BID #180 tab 03/14/19 08/06/21 History flecainide 100 mg tablet 100 mg PO BID #180 tab 03/14/19 08/06/21 History montelukast 10 mg tablet 10 mg PO HS tab 03/14/19 08/06/21 History omeprazole 20 mg capsule,delayed 20 mg PO BID cap 03/14/19 08/06/21 History release albuterol sulfate 90 mcg/actuation 2 puffs INH Q6H PRN 03/27/19 08/06/21 History aerosol inhaler (Ventolin HFA) calcium carbonate 500 mg calcium 500 mg PO DAILY 11/20/19 08/06/21 History (1,250 mg) tablet (Calcium 500) liothyronine 5 mcg tablet (Cytomel) 5 mcg PO BID tab 11/20/19 08/06/21 History magnesium oxide 400 mg PO DAILY 11/20/19 08/06/21 History metformin 1,000 mg tablet 1,000 mg PO BID 11/20/19 08/06/21 History multivitamin 1 tab PO DAILY 11/20/19 08/06/21 History verapamil 240 mg 24 hr 240 mg PO DAILY 11/20/19 08/06/21 History capsule,extended release fluticasone propionate 50 2 sprays INTNAS DAILY PRN 11/22/19 08/06/21 History mcg/actuation nasal spray,suspension (Flonase Allergy Relief) thiothixene 5 mg capsule 5 mg PO DAILY cap 11/22/19 08/06/21 History pravastatin 80 mg tablet 80 mg PO DAILY 07/21/20 08/06/21 History aspirin 81 mg tablet,delayed 162 mg PO HS #30 tab 07/22/20 08/06/21 Rx release fluticasone 500 mcg-salmeterol 50 1 inh INHALATION Q12H 10/01/20 08/06/21 History mcg/dose blistr powdr for inhalation (Shaanela Inhub) sodium chloride 1,000 mg soluble 1,000 mg PO BID 02/02/21 08/06/21 History tablet ondansetron HCl 8 mg tablet 8 mg PO TID PRN #30 tab 02/05/21 08/06/21 Rx bupropion HCl 200 mg tablet,12 hr 200 mg PO DAILY 03/21/21 08/06/21 History sustained-release levothyroxine 125 mcg tablet 112 mcg PO DAILYBB 03/21/21 08/06/21 History acetaminophen 500 mg tablet 1,000 mg PO Q6H PRN tab 07/23/21 08/06/21 History (Tylenol Extra Strength) prochlorperazine maleate 10 mg 10 mg PO Q6H PRN 08/06/21 08/06/21 History tablet tizanidine 2 mg capsule 2 mg PO HS PRN 08/06/21 08/06/21 History Past Med/Surg History Medical History (Updated 08/06/21 @ 05:27 by Xiomara Guzman DO) Abnormal mammography CAD (coronary artery disease) Chronic hyponatremia Common migraine without aura Contusion of left hip Diaphragmatic hernia Diverticulosis of colon Dizziness DS (disseminated sclerosis) Dyslipidemia Dysmetabolic syndrome X Eczema Encounter for pre-operative examination GERD (gastroesophageal reflux disease) Hearing loss HTN (hypertension) Hyponatremia Memory loss Migraines Neuropathy Non-occlusive coronary artery disease Old anteroseptal myocardial infarction (2004) Osteoporosis, unspecified Presence of stent in LAD coronary artery (2004) Schizoaffective disorder SIADH (syndrome of inappropriate ADH production) Small cell carcinoma of lung Unspecified osteomyelitis, ankle and foot Surgical History History of bunionectomy History of colonoscopy History of coronary angioplasty Stent by Dr. Bryan History of tubal ligation History of wisdom tooth extraction Family History Father , 56yo Hypertension Liver cancer Migraines Mother , at 65yo Breast cancer Diabetes Hypertension Emphysema lung Brother No problems noted. Sister Diabetes Liver cancer H/O liver transplant Hypertension Son No problems noted. Son Prediabetes Social History Smoking Status: Never smoker Tobacco Type: Cigarettes Cigarettes Per Day: 2-2.5 packs per day; Second Hand Exposure: No; Hx Alcohol Use: No Hx Substance Use: No Preferred Language: Yakut Communication Ability: Effective Visual Impairment: No Limitations Hearing Ability: Normal Environmental Monitoring Technician Required: No Beliefs That Will Affect Care: None marital status: Current Living Situation: Alone Current Living Situation Comment: House no steps into home, into bedroom or into bathroom current occupational status: unemployed current occupation: On disability How many Children do You have: 2 Feels Safe at Home: Yes Diet Comment: High protein diet, fluid restriction, diabetic diet; caffeine: No during the past year weight has: decreased > 10 lbs Assistive Devices: Oxygen - Continuous and Walker Review of Systems Review of Systems: As per HPI, all 10 systems reviewed, all other ROS negative Physical Exam Physical Exam: GENERAL: uncomfortable, respiratory distress SKIN: Pallor, warm HEENT: pale palpebral conjunctivae, no ptosis, dry buccal mucosa, O2 mask in place NECK : Supple, no tenderness CHEST : Decreased breath sounds, expiratory wheezes, no tenderness HEART : Tachycardic, irregular, no obvious murmurs ABDOMEN: Some distention, nontender EXTREMITIES : No LE swelling/tenderness, no other conspicuous deformities noted NEUROLOGIC : Coherent, no facial asymmetry, gait and stance not assessed Results & Data Results & Data ([facility]) Vital Signs (Past 12 Hours) Vital Signs Pulse Pulse Resp BP BP Pulse Ox 08/06/21 03:14 140 H 08/06/21 02:31 130 H 22 142/97 H 100 08/06/21 01:30 138 H 24 143/88 H 100 08/06/21 00:03 142 H 28 H 100 08/05/21 23:48 149 H 30 H 100 08/05/21 23:42 114 H 113 H 28 H 149/95 H 149/95 H 100 Laboratory Results Laboratory Results WBC 10.21 K/uL (4.8-10.8) 08/06/21 00:17 RBC 3.64 M/uL (4.2-5.4) L 08/06/21 00:17 Hgb 9.5 g/dL (12.0-16.0) L 08/06/21 00:17 Hct 31.7 % (37-47) L 08/06/21 00:17 MCV 87.1 fL (80-100) 08/06/21 00:17 MCH 26.1 pg (25-34) 08/06/21 00:17 MCHC 30.0 g/dL (32-36) L 08/06/21 00:17 RDW Std Deviation 64.7 fL (36.4-46.3) H 08/06/21 00:17 RDW Coeff of Chepe 20.4 % (11.5-14.5) H 08/06/21 00:17 Plt Count 261 K/uL (130-400) 08/06/21 00:17 MPV 10.8 fL (7.4-10.4) H 08/06/21 00:17 Immature Gran % (Auto) 0.3 % 08/06/21 00:17 Neut % (Auto) 85.6 % 08/06/21 00:17 Lymph % (Auto) 4.7 % 08/06/21 00:17 Ida % (Auto) 9.3 % 08/06/21 00:17 Eos % (Auto) 0.0 % 08/06/21 00:17 Baso % (Auto) 0.1 % 08/06/21 00:17 Neut # (Auto) 8.74 K/uL (1.4-6.5) H 08/06/21 00:17 Lymph # (Auto) 0.48 K/uL (1.2-3.4) L 08/06/21 00:17 Ida # (Auto) 0.95 K/uL (0.11-0.59) H 08/06/21 00:17 Eos # (Auto) 0.00 K/uL (0-0.5) 08/06/21 00:17 Baso # (Auto) 0.01 K/uL (0-0.2) 08/06/21 00:17 Immature Gran # (Auto) 0.03 K/uL (0.00-0.02) H 08/06/21 00:17 Polychromasia 1+ 08/06/21 00:17 Anisocytosis Present 08/06/21 00:17 Ovalocytes 1+ 08/06/21 00:17 Stomatocytes 1+ 08/06/21 00:17 Sodium 133 mmol/L (136-145) L 08/06/21 00:17 Potassium 4.1 mmol/L (3.5-5.1) 08/06/21 00:17 Chloride 97 mmol/L (98-107) L 08/06/21 00:17 Carbon Dioxide 32 mmol/L (21-32) 08/06/21 00:17 Anion Gap 4.0 (3-11) 08/06/21 00:17 BUN 15 mg/dl (7-18) 08/06/21 00:17 Creatinine 0.42 mg/dl (0.6-1.2) L 08/06/21 00:17 Est Cr Clr Drug Dosing 119.5 ml/min 08/06/21 00:17 Est GFR ( Amer) 127.3 ml/min 08/06/21 00:17 Est GFR (Non-Af Amer) 109.9 ml/min 08/06/21 00:17 BUN/Creatinine Ratio 36.9 (10-20) H 08/06/21 00:17 Glucose 141 mg/dl (70-99) H 08/06/21 00:17 Calcium 9.2 mg/dl (8.5-10.1) 08/06/21 00:17 Total Bilirubin 0.4 mg/dl (0.2-1) 08/06/21 00:17 AST 86 U/L (15-37) H 08/06/21 00:17 ALT 50 (12-78) 08/06/21 00:17 Alkaline Phosphatase 205 U/L (45-117) H D 08/06/21 00:17 Troponin I < 0.015 ng/ml (0-0.045) 08/06/21 00:17 Total Protein 6.8 gm/dl (6.4-8.2) 08/06/21 00:17 Albumin 3.1 gm/dl (3.4-5.0) L 08/06/21 00:17 Globulin 3.7 gm/dl (2.5-4.0) 08/06/21 00:17 Albumin/Globulin Ratio 0.8 (0.9-2) L 08/06/21 00:17 Urine Color Dark Yellow 08/06/21 01:40 Urine Appearance Clear (Clear) 08/06/21 01:40 Urine pH 5.5 (4.5-7.5) 08/06/21 01:40 Ur Specific [place] 1.020 (1.000-1.030) 08/06/21 01:40 Urine Protein Trace (Negative) H 08/06/21 01:40 Urine Glucose (UA) Negative (Negative) 08/06/21 01:40 Urine Ketones Negative (Negative) 08/06/21 01:40 Urine Blood Negative (Negative) 08/06/21 01:40 Urine Nitrite Positive (Negative) A 08/06/21 01:40 Urine Bilirubin Negative (Negative) 08/06/21 01:40 Urine Urobilinogen Negative (Negative) 08/06/21 01:40 Ur Leukocyte Esterase Negative (Negative) 08/06/21 01:40 Urine WBC (Auto) 0 /hpf (0-5) 08/06/21 01:40 Urine RBC (Auto) 0-4 /hpf (0-4) 08/06/21 01:40 U Hyaline Cast (Auto) 0 /lpf (0-5) 08/06/21 01:40 U Epithel Cells (Auto) 0-5 /lpf (0-5) 08/06/21 01:40 Urine Bacteria (Auto) 4+ (Negative) H 08/06/21 01:40 SARS-CoV-2, RNA, NAAT NEGATIVE (NEGATIVE) 08/06/21 02:33 Diagnostic Findings Chest x-ray as per my interpretation cardiomegaly, minimal congestion, COPD Pelvic x-ray as per my interpretation no obvious fractures EKG as per my interpretation : Rate 160, A. fib, RAD, T wave flattening inferior leads (1) Respiratory failure Chronicity: chronic Respiratory failure complication: hypoxia Qualified Code(s): J96.11 - Chronic respiratory failure with hypoxia
[2021-08-06 03:39] LABS: Magnesium 1.8 mg/dl (1.8-2.4); NT Pro B Type Natriuretic Pept 3661 pg/ml (0-900)
[2021-08-06] MEDS ORDERED: IPRATROPIUM BROMIDE NEB SOLN 0.02% 2.5 ML VIAL INH STA (03:53)
[2021-08-06] MEDS ORDERED: LEVALBUTEROL 1.25MG/0.5ML NEB INH STA (03:54)
[2021-08-06 04:05] LABS: Partial Thromboplastin Time 26.5 Seconds (21.0-31.0)
[2021-08-06] MEDS ORDERED: OPTIRAY 320 125ml IV ONE (04:27)
[2021-08-06 04:28] LABS: Base Excess ABG 1.5 mEq/L (-9-1.8); HCO3 ABG 29 mmol/L (19-24); Oxygen Saturation ABG 96.1 % (90-95); PCO2 ABG 64 mmHg (35-46); PO2 ABG 91 mmHg (80-95); pH ABG 7.28 (7.35-7.45)
[2021-08-06 04:33] LABS: Allen Test Pos (Pos)
[2021-08-06] MEDS ORDERED: FUROSEMIDE INJ 20 MG/2 ML VIAL IV STA (04:36)
[2021-08-06] MEDS: MAGNESIUM SULFATE / D5W 1 GM/100 ML BAG IV SCH ×2 (05:04→07:06)
[2021-08-06] MEDS ORDERED: FLUTICASONE PROPIONATE NA SPR 16 GM BTL PRN (06:34)
[2021-08-06] MEDS ORDERED: ACETAMINOPHEN 325 MG TAB PO PRN (06:34)
[2021-08-06] MEDS ORDERED: HYDROCODONE/ACETAMOPHEN 5/325MG TAB PO PRN (06:34)
[2021-08-06] MEDS ORDERED: DOCUSATE SODIUM/SENNA 50/8.6MG TAB PO PRN (06:34)
[2021-08-06] MEDS ORDERED: HYDROmorphone INJ 0.5 MG/0.5 ML SYR IV PRN (06:34)
[2021-08-06] MEDS ORDERED: PROMETHAZINE HCL 12.5 MG in SODIUM CHLORIDE 0.9% 50 ML IV PRN (06:34)
[2021-08-06] MEDS ORDERED: XOPENEX/ATROVENT 1.25mg/0.5MG NEB COMBO NEB SCH (07:00)
[2021-08-06] MEDS ORDERED: VERAPAMIL HCL 2.5 MG/ML 2 ML VIAL IV ONE (07:01)
[2021-08-06 07:20] LABS: Base Excess ABG 2.5 mEq/L (-9-1.8); HCO3 ABG 30 mmol/L (19-24); Oxygen Saturation ABG 96.5 % (90-95); PCO2 ABG 58 mmHg (35-46); PO2 ABG 91 mmHg (80-95); pH ABG 7.32 (7.35-7.45)
[2021-08-06 07:27] LABS: Allen Test Pos (Pos)
--- NOTE | 2021-08-06 07:32 | CT Scan Report ---
CT pelvis wo con CLINICAL HISTORY: Left hip pain. TECHNIQUE: Multiaxial CT images of the left hip are performed without contrast and reformatted in the sagittal and coronal plane. COMPARISON STUDY: Left hip radiograph 08/06/2021. Outside hospital PET/CT 07/15/2021. FINDINGS: Partially visualized large hepatic masses consistent with metastatic disease. This is simil ar to the prior study. Dominant lesion within the right hepatic lobe measures approximately 7.4 cm. T race pelvic free fluid. The visualized loops of bowel show no wall thickening or obstruction. No frac ture or dislocation within the pelvis or hips. The sacrum appears intact. IMPRESSION: 1. No fracture or dislocation within the pelvis or hips. 2. Multiple metastatic hepatic lesions again noted. ACT 112: Negative or not required by law. Electronically signed by: Abiel Garza M.D. 08/06/2021 7:31 AM
[2021-08-06 07:36] LABS: Estimated Average Glucose 114 mg/dl; Hemoglobin A1C 5.6 % (4.5-5.6)
[2021-08-06] MEDS: LEVALBUTEROL 1.25MG/0.5ML NEB INH SCH ×3 (07:42→19:52)
[2021-08-06] MEDS: IPRATROPIUM BROMIDE NEB SOLN 0.02% 2.5 ML VIAL INH SCH ×3 (07:42→19:52)
--- NOTE | 2021-08-06 07:47 | XRay Report ---
XR hip LT 2V w pelvis CLINICAL HISTORY: fall. Left hip pain. COMPARISON STUDY: None. FINDINGS: No fracture or dislocation within the pelvis or hips. The sacrum is intact. Soft tissues ar e unremarkable. IMPRESSION: No fractures within the pelvis or hips. ACT 112: Negative or not required by law. Electronically signed by: Abiel Garza M.D. 08/06/2021 7:46 AM
--- NOTE | 2021-08-06 08:25 | XRay Report ---
SINGLE VIEW CHEST CLINICAL HISTORY: Dyspnea. FINDINGS: An AP, portable, upright chest radiograph is compared to study dated 03/21/2021. The examina tion is degraded by portable technique and patient rotation. A right internal jugular central venou s infusion port is unchanged in position. The heart is enlarged noting atherosclerotic calcification of the thoracic aorta. Enlargement of the central pulmonary arteries suggests pulmonary artery hypert ension. Emphysema and chronic interstitial thickening is similar to previous. There are left larger t devries right pleural effusions. Left perihilar fibrosis is unchanged. No pneumothorax is seen. The skele shari structures are osteopenic. The bony thorax is grossly intact. IMPRESSION: 1. Cardiomegaly and emphysema. 2. Small pleural effusions, left larger than right. ACT 112: Negative or not required by law. Electronically signed by: Tan Ruiz M.D. 08/06/2021 8:23 AM
[2021-08-06] MEDS: LEVOTHYROXINE SODIUM 112 MCG TABLET PO SCH (08:34)
--- NOTE | 2021-08-06 08:55 | CT Scan Report ---
CT angio chest PE protocol CLINICAL HISTORY: sob TECHNIQUE: Multidetector row helical CT of the chest was performed. Coronal and sagittal reformations were obtained. Automated dose lowering techniques and/or adjustment according to patient size were u tilized for this exam. Comparison: Comparison is made to CT chest 05/01/2020 and PET/CT 07/15/2021 FINDINGS: Lungs and pleura: Diffuse centrilobular emphysema is seen most prominent in the upper lobes. There is a small right and moderate left pleural effusion. There is associated subsegmental atelectasis. Smoo th intralobular septal thickening is seen. A 14 mm nodule in the left upper lobe is unchanged from pr ior PET/CT. Heart and pericardium: Heart size is normal. No pericardial effusion. Vessels: The pulmonary trunk is enlarged measuring 31 mm. No pulmonary embolism is seen. Moderate ath erosclerotic changes are seen in the coronary arteries. Mediastinum and genesis: Subcentimeter lymph nodes are seen. Chest wall and lower neck: Unremarkable. Abdomen: Multiple hypodensities are seen in the liver compatible with metastatic disease. Bones: Unremarkable. IMPRESSION: 1. No evidence of pulmonary embolism. 2. Bilateral pleural effusions. 3. Pulmonary edema and pulmonary hypertension. 4. 14 mm nodule left upper lobe is unchanged from prior exam. ACT 112: Negative or not required by law. Electronically signed by: Tino Westbrook M.D. 08/06/2021 8:54 AM
[2021-08-06] MEDS ORDERED: FLECAINIDE ACETATE 100 MG TABLET PO SCH (09:00)
[2021-08-06] MEDS ORDERED: PROMETHAZINE 12.5 MG/50.5 ML NSS IV ONE (09:11)
[2021-08-06] MEDS ORDERED: FUROSEMIDE 40 MG/4 ML VIAL IV ONE (10:34)
[2021-08-06] MEDS: PRAVASTATIN SOD 40 MG TAB PO SCH (11:03)
[2021-08-06] MEDS: FLUTICASONE/VILANTEROL 200/25MCG 14 PUFFS/INHALER INH SCH (11:03)
[2021-08-06] MEDS: PANTOprazole 40 MG TAB PO SCH ×2 (11:03→20:02)
[2021-08-06] MEDS: buPROPion SR 100 MG TABCR PO SCH (11:03)
[2021-08-06] MEDS: MULTIVITAMIN TAB PO SCH (11:03)
[2021-08-06] MEDS: LIOTHYRONINE SODIUM 5 MCG TAB PO SCH ×2 (11:03→20:03)
[2021-08-06] MEDS: SODIUM CHLORIDE 1 GM TABLET PO SCH ×3 (11:04→20:03)
[2021-08-06] MEDS: THIOTHIXENE 5 MG CAP PO SCH (11:04)
[2021-08-06] MEDS: VERAPAMIL HCL 240 MG TABCR PO SCH (11:04)
--- NOTE | 2021-08-06 14:33 | Cardiology Consultation ---
Date of Consultation August 06, 2021 Assessment & Plan (1) Atrial flutter: (2) Anticoagulant long-term use: (3) Respiratory failure: (4) CHF (congestive heart failure): 1. Atrial flutter: Currently she is in atrial flutter, she presented in atrial fibrillation which converted briefly to sinus rhythm while on flecainide 100 mg twice a day and then reverted to atrial flutter with 2-1 AV conduction. At this point flecainide is not working very well, my recommendation would be to use intravenous amiodarone with thoughts toward transitioning to oral amiodarone. I did prescribe that. 2. Anticoagulation: She has been on Eliquis, she may have missed a dose however I am going to restart it. 3. Respiratory failure: I believe this is primarily COPD however she does have a suggestion of congestive heart failure with her chest x-ray and her BNP. 4. Congestive heart failure: I believe she is in congestive heart failure based on her chest x-ray and her BNP, in the past her BNP was normal. Her creatinine is normal and I see no contraindication to giving her dose of diuretic and I have ordered that. I am also going to get an echocardiogram to see with her LV function remains normal as it has been a year since she had 1. History of Present Illness Reason for Consultation: Atrial fibrillation with rapid ventricular response Attending Physician: Keron Zheng MD History of Present Illness This is a 60-year-old woman with a history of severe COPD for which she uses oxygen, small cell lung carcinoma treated in 2019, history of CVA, history of coronary artery disease (she had an anteroseptal microinfarction 2004 with LAD stenting) as well as paroxysmal atrial fibrillation. She is maintained on Eliquis and flecainide as well as verapamil for rate control. She presented to the emergency room with left hip pain following a fall. She is describing worsening shortness of breath over the past 3 weeks however and she was hypoxic on the 4 L nasal cannula that she normally uses. She was noted to be in atrial fibrillation with a rapid heart rate on presentation (158 bpm). She may have missed at least 1 dose of flecainide. The duration of atrial fibrillation is uncertain, the last heart rate I have in the chart was July 23, 2021 and it was 116 which is consistent with her pulse rate when she presented here in atrial fibrillation so I suspect it was present for several weeks, possibly intermittent. Here she was given flecainide and AV huseyin blocking medications and did convert briefly to sinus rhythm in the order filler hours only to return to atrial flutter with a variable heart rate. Currently she is in atrial flutter. Her chest x-ray does not show clear pulmonary edema, her BNP however is elevated. At the time of my evaluation she is supine in bed on BiPAP, she is however surprisingly alert and conversational. She is having shortness of breath but does not have any other complaints including palpitations. Allergies Allergy/AdvReac Type Severity Reaction Status Date / Time Beta-Blockers Allergy Severe Confusion; Verified 08/06/21 07:28 (Beta-Adrenergic Bloc Diarrhea; Rash tetracycline Allergy Intermediate RASH; Verified 08/06/21 07:28 "MYCINS" ALLERGY clindamycin Allergy Unknown "MYCINS" Verified 08/06/21 07:28 ALLERGY diltiazem Allergy Unknown ? Verified 08/06/21 07:28 Sulfa (Sulfonamide Allergy Unknown Unknown Verified 08/06/21 07:28 Antibiotics) sumatriptan Allergy Unknown "TRIPTANS" Verified 08/06/21 07:28 ALLERGY morphine Allergy Unknown Verified 08/06/21 07:28 codeine AdvReac Severe SYNCOPE Verified 08/06/21 07:28 PER PATIENT oxycodone AdvReac Mild GI UPSET Verified 08/06/21 07:28 Home Medications Medication Instructions Recorded Confirmed Type apixaban 5 mg tablet 5 mg PO BID #180 tab 03/14/19 08/06/21 History flecainide 100 mg tablet 100 mg PO BID #180 tab 03/14/19 08/06/21 History montelukast 10 mg tablet 10 mg PO HS tab 03/14/19 08/06/21 History omeprazole 20 mg capsule,delayed 20 mg PO BID cap 03/14/19 08/06/21 History release albuterol sulfate 90 mcg/actuation 2 puffs INH Q6H PRN 03/27/19 08/06/21 History aerosol inhaler (Ventolin HFA) calcium carbonate 500 mg calcium 500 mg PO DAILY 11/20/19 08/06/21 History (1,250 mg) tablet (Calcium 500) liothyronine 5 mcg tablet (Cytomel) 5 mcg PO BID tab 11/20/19 08/06/21 History magnesium oxide 400 mg PO DAILY 11/20/19 08/06/21 History metformin 1,000 mg tablet 1,000 mg PO BID 11/20/19 08/06/21 History multivitamin 1 tab PO DAILY 11/20/19 08/06/21 History verapamil 240 mg 24 hr 240 mg PO DAILY 11/20/19 08/06/21 History capsule,extended release fluticasone propionate 50 2 sprays INTNAS DAILY PRN 11/22/19 08/06/21 History mcg/actuation nasal spray,suspension (Flonase Allergy Relief) thiothixene 5 mg capsule 5 mg PO DAILY cap 11/22/19 08/06/21 History pravastatin 80 mg tablet 80 mg PO DAILY 07/21/20 08/06/21 History aspirin 81 mg tablet,delayed 162 mg PO HS #30 tab 07/22/20 08/06/21 Rx release fluticasone 500 mcg-salmeterol 50 1 inh INHALATION Q12H 10/01/20 08/06/21 History mcg/dose blistr powdr for inhalation (Wixela Inhub) sodium chloride 1,000 mg soluble 1,000 mg PO BID 02/02/21 08/06/21 History tablet ondansetron HCl 8 mg tablet 8 mg PO TID PRN #30 tab 02/05/21 08/06/21 Rx bupropion HCl 200 mg tablet,12 hr 200 mg PO DAILY 03/21/21 08/06/21 History sustained-release levothyroxine 125 mcg tablet 112 mcg PO DAILYBB 03/21/21 08/06/21 History acetaminophen 500 mg tablet 1,000 mg PO Q6H PRN tab 07/23/21 08/06/21 History (Tylenol Extra Strength) prochlorperazine maleate 10 mg 10 mg PO Q6H PRN 08/06/21 08/06/21 History tablet tizanidine 2 mg capsule 2 mg PO HS PRN 08/06/21 08/06/21 History Patient History Medical History Abnormal mammography CAD (coronary artery disease) Chronic hyponatremia Common migraine without aura Contusion of left hip Diaphragmatic hernia Diverticulosis of colon Dizziness DS (disseminated sclerosis) Dyslipidemia Dysmetabolic syndrome X Eczema Encounter for pre-operative examination GERD (gastroesophageal reflux disease) Hearing loss HTN (hypertension) Hyponatremia Memory loss Migraines Neuropathy Non-occlusive coronary artery disease Old anteroseptal myocardial infarction (2004) Osteoporosis, unspecified Presence of stent in LAD coronary artery (2004) Schizoaffective disorder SIADH (syndrome of inappropriate ADH production) Small cell carcinoma of lung Unspecified osteomyelitis, ankle and foot Surgical History History of bunionectomy History of colonoscopy History of coronary angioplasty Stent by Dr. Bryan History of tubal ligation History of wisdom tooth extraction Family History Father , 56yo Hypertension Liver cancer Migraines Mother , at 65yo Breast cancer Diabetes Hypertension Emphysema lung Brother No problems noted. Sister Diabetes Liver cancer H/O liver transplant Hypertension Son No problems noted. Son Prediabetes Social History Smoking Status: Unknown if ever smoked Tobacco Type: Cigarettes Cigarettes Per Day: 2-2.5 packs per day; Second Hand Exposure: No; Hx Alcohol Use: No Hx Substance Use: No Preferred Language: Welsh Communication Ability: Effective Visual Impairment: No Limitations Hearing Ability: Normal Insurance Account Specialist Required: No Beliefs That Will Affect Care: None marital status: Current Living Situation: Alone Current Living Situation Comment: House no steps into home, into bedroom or into bathroom current occupational status: unemployed current occupation: On disability How many Children do You have: 2 Feels Safe at Home: Yes Diet Comment: High protein diet, fluid restriction, diabetic diet; caffeine: No during the past year weight has: decreased > 10 lbs Assistive Devices: Oxygen - Continuous and Walker Physical Exam Physical Exam: Constitutional: Alert, cooperative and in moderate respiratory distress on BiPAP HEENT: Unremarkable Neck: No jugular venous distention, carotid pulses are normal and equal bilaterally without bruits. Pulmonary: Bilateral crackles on auscultation. Cardiac: Regular rapid rhythm with no murmur, gallop or rub. Abdomen: Soft, nontender with normal bowel sounds. Extremities: No edema. Distal pulses intact. Neurologic: No focal findings. Skin: No rash, ecchymoses or petechiae. Results & Data ([facility]) Vital Signs (Past 12 Hours) Vital Signs Pulse Pulse Resp BP Pulse Ox Pulse Ox 08/06/21 12:54 119 H 119 H 22 92 08/06/21 11:00 129 H 20 103/74 93 08/06/21 10:45 137 H 34 H 92 08/06/21 07:43 116 H 116 H 32 H 96 08/06/21 06:34 125 H 20 139/87 90 91 08/06/21 05:58 34 H 96 08/06/21 04:49 105 H 22 150/86 H 99 08/06/21 04:35 114 H 22 150/86 H 99 08/06/21 03:14 140 H 08/06/21 02:31 130 H 22 142/97 H 100 Laboratory Results Cardiac Enzymes 08/06/21 Range/Units 00:17 AST 86 H (15-37) U/L Troponin I < 0.015 (0-0.045) ng/ml Coagulation 08/06/21 Range/Units 03:43 APTT 26.5 (21.0-31.0) Seconds CBC 08/06/21 Range/Units 00:17 WBC 10.21 (4.8-10.8) K/uL RBC 3.64 L (4.2-5.4) M/uL Hgb 9.5 L (12.0-16.0) g/dL Hct 31.7 L (37-47) % Plt Count 261 (130-400) K/uL Neut # (Auto) 8.74 H (1.4-6.5) K/uL Lymph # (Auto) 0.48 L (1.2-3.4) K/uL [place] # (Auto) 0.95 H (0.11-0.59) K/uL Eos # (Auto) 0.00 (0-0.5) K/uL Baso # (Auto) 0.01 (0-0.2) K/uL Comprehensive Metabolic Panel 08/06/21 Range/Units 00:17 Sodium 133 L (136-145) mmol/L Potassium 4.1 (3.5-5.1) mmol/L Chloride 97 L (98-107) mmol/L Carbon Dioxide 32 (21-32) mmol/L BUN 15 (7-18) mg/dl Creatinine 0.42 L (0.6-1.2) mg/dl Glucose 141 H (70-99) mg/dl Calcium 9.2 (8.5-10.1) mg/dl AST 86 H (15-37) U/L ALT 50 (12-78) Alkaline Phosphatase 205 H D (45-117) U/L Total Protein 6.8 (6.4-8.2) gm/dl Albumin 3.1 L (3.4-5.0) gm/dl Intake and Output 08/06/21 08/06/21 08/06/21 06:59 14:59 22:59 Intake Total 500 / 500 200 / 200 Output Total 1200 / 1200 Balance 500 / 500 -1000 / -1000 Intake: IV 500 / 500 200 / 200 Magnesium Sulfate / D5w 1 gm In 200 / 200 100 ml @ 50 mls/hr IV Q2H [facility] Rx#:[id number] Sodium Chloride 0.9% 500 ml @ 500 / 500 999 mls/hr IV .Q31M [facility] Rx#: [id number] Output: Urine Amount (Catheter) 1200 / 1200 Duffy/Indwelling 1200 / 1200 Other: Weight 64.6 kg 64.6 kg Weight Measurement Method Built in [facility] Built in [facility] Patient Weight 08/07/21 06:59 Weight 64.6 kg Diagnostic Findings Telemetry: PG Care Time/CCT Total # of Minutes Spent Total Time Spent with Patient: Total time spent is greater than 50% in coordination of care (as documented) at patient's floor/unit and/or counseling patient: Coding Level of Care Code 01369 Initial Inpt Care Lvl 3 Diagnoses Atrial flutter I48.3 Atrial flutter type: typical Anticoagulant long-term use Z79.01 Respiratory failure J96.21 Chronicity: acute on chronic Respiratory failure complication: hypoxia CHF (congestive heart failure) I50.9 Heart failure type: unspecified Heart failure chronicity: acute (1) Atrial flutter Atrial flutter type: typical Qualified Code(s): I48.3 - Typical atrial flutter (2) Respiratory failure Chronicity: acute on chronic Respiratory failure complication: hypoxia Qualified Code(s): J96.21 - Acute and chronic respiratory failure with hypoxia (3) CHF (congestive heart failure) Heart failure type: unspecified Heart failure chronicity: acute Qualified Code(s): I50.9 - Heart failure, unspecified
[2021-08-06] MEDS ORDERED: STAT IV Infusion **Titration per Protocol STA (15:10)
[2021-08-06] MEDS ORDERED: 0.2 MICRON FILTER SET 1 EA IV ONE (15:10)
[2021-08-06] MEDS ORDERED: AMIODARONE IV BOLUS & DRIP IV STA (15:10)
[2021-08-06] MEDS ORDERED: AMIODARONE / D5W 150 MG/100 ML BAG IV STA (15:10)
[2021-08-06] MEDS ORDERED: AMIODARONE / D5W 360 MG/200 ML BAG IV ONE (15:20)
[2021-08-06] MEDS ORDERED: FUROSEMIDE INJ 20 MG/2 ML VIAL IV ONE (15:35)
[2021-08-06] MEDS: CEFEPIME 2,000 MG in SYRINGE 0 ML IV SCH (16:33)
--- NOTE | 2021-08-06 17:46 | Hospitalist Progress Note ---
Date of Service August 06, 2021 Assessment & Plan (1) Small cell carcinoma of lung: (2) Acute and chronic respiratory failure: (3) Acute exacerbation of chronic obstructive pulmonary disease (COPD): Plan: 60 yo F w/ PMH of CAD status post stent, A. fib on Eliquis, recurrent metastatic SCLC sp chemoradiation, CVA, chronic respiratory failure secondary to COPD on home O2 (3L), RAKESH on CPAP, chronic hyponatremia, SIADH, prediabetes, chronic anemia (baseline hemoglobin 9), schizoaffective/mood disorder, hypothyroidism, prediabetes, esophageal dysmotility as per records, recurrent UTIs on methenamine suppression Rx, past tobacco abuse presented 08/05 to our ED with complaint of worsening SOB for few weeks [employer] associated with left-sided chest pain but no cough symptoms. Patient also complained of left hip pain worse with motion that caused her to fall down on the day of arrival. Patient denies any fever chills or dysuria or abdominal pain at presentation. Patient did not take her nighttime meds prior to arrival secondary to not feeling well. #. Acute on chronic respiratory failure: #. Pulmonary edema #. Small pleural effusion- L>R, c/t monitor #. AE COPD-on prednisone, nebulization, continue supplemental oxygen. Chronic respiratory failure secondary to COPD on home O2 - 3L, RAKESH on CPAP Multifactorial : COPD exacerbation, Mild pulmonary congestion, lung cancer, A. fib with RVR. Admitting CTA chest negative for pulmonary embolism, positive for pulmonary edema. Also revealed bilateral pleural effusion, pulmonary hypertension, unchanged 14 mm GARETH nodule. Admitting proBNP elevated at 3661. Continue with supplemental oxygen as needed, wean down as tolerated to baseline. Will give her dose of Lasix today, will monitor daily clinically, Lasix as needed, strict I's and O's. Continue to monitor pleural effusion, was out for respiratory decompensation. #. A. fib with RVR #. Acute congestive heart failure. Patient noted to be in A. fib with RVR at presentation. Rapid A. fib secondary to illness versus missed p.o. medication versus both. On Eliquis for anticoagulation. We will continue with Eliquis Cardiology consult: Appreciate recommendation. Her admitting BNP elevated with admitting imaging showing cardiomegaly. Prior BNP levels WNL. Cardiology on board: Plan to get echo, Lasix. Strict I's and O's, Lasix as needed. #. Left hip pain Admitting imaging ruled out fracture or any other acute findings. Patient reporting pain under control at bedside exam. Pain meds as needed, continue to monitor. #. Complicated UTI History of recurrent UTI on methenamine suppression treatment. Urine analysis suggestive of UTI, urinary culture pending. Continue with cefepime 08/06. #. Recurrent metastatic SCLC Patient voluntarily stopped taking chemotherapy 3 weeks ago HE[employer]. 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 Mets to brain, mets to liver. Patient and her brother [primary contact] value comfort over any active intervention. They have a discussion with palliative care at [facility]. Upon discussion, they agreed to explore hospice. They also gave hint during the discussion that they had slightly touched hospice topic in the past. executive account manager made aware, will put a consult for hospice. #. Other chronic medical conditions: CAD status post stent, CVA, chronic hyponatremia, prediabetes, chronic anemia, schizoaffective/mood disorder, hypothyroidism Monitor as appropriate, resume home meds when able. DVT prophylaxis. Eliquis resumed. DNR 08/06: Her brother, Mr. Raymond Syed (contact #[phone]) contacted and given update, answered all the question, discuss about goals of care, wanted to explore hospice. He voiced understanding and was agreeable to the plan of care. Admission and Anticipated Discharge Date Admission Date: August 06, 2021 Subjective Patient was lying in bed, on CPAP, NAD, no new acute events overnight. Patient reports pain under control. Per RN, patient was desaturating during medication intake which required taking out her CPAP. She is making urine appropriately. She is recently started using oxygen at home. She does report pain diffusely but under control, especially left hip and belly. She feels weak. Denies headache/dizziness/chest pain/other review of symptoms. Physical Exam Physical Exam: GENERAL: Alert and oriented x3. NAD, on CPAP. HEENT: + pallor, no icterus. Pupils equal, round and reactive to light. Oral mucosa moist. NECK: No JVD, no neck masses. HEART: S1 and S2 heard. Regular rate and rhythm. No murmur, no gallop. RESPIRATORY SYSTEM: Normal AP diameter. No accessory muscle use. + wheezing, + b/l crackles. ABDOMEN: Soft, bowel sounds present, + minimal tender diffuse, + distention mild. CENTRAL NERVOUS SYSTEM: No facial droop. Speech is clear. Obeys simple commands. Moves extremities. EXTREMITIES: No edema, no erythema seen. Results & Data Results & Data ([facility]) Vital Signs (Past 12 Hours) Vital Signs Temp Pulse Pulse Resp BP Pulse Ox Pulse Ox 08/06/21 17:10 123 H 08/06/21 16:57 119 H 22 122/75 94 08/06/21 16:39 96 08/06/21 16:23 36.5 C 128 H 24 126/85 99 08/06/21 15:09 59 L 20 130/53 L 98 08/06/21 12:54 119 H 119 H 22 92 08/06/21 11:00 129 H 20 103/74 93 08/06/21 10:45 137 H 34 H 92 08/06/21 07:43 116 H 116 H 32 H 96 08/06/21 06:34 125 H 20 139/87 90 91 08/06/21 05:58 34 H 96
[2021-08-06] MEDS: ASPIRIN 81 MG ECTAB PO SCH (20:02)
[2021-08-06] MEDS: APIXABAN 5 MG TABLET PO SCH (20:03)
[2021-08-06] MEDS: MONTELUKAST SODIUM 10 MG TABLET PO SCH (20:54)
[2021-08-06] MEDS: AMIODARONE / D5W 360 MG/200 ML BAG IV SCH (22:24)
[2021-08-06] MEDS: PROCHLORPERAZINE MALEATE 5 MG TAB PO PRN (23:27)
[2021-08-07] MEDS ORDERED: HEPARIN 100 UNIT/ML 5ML FLUSH FLUSH PRN ×2 (00:55→09:18)
[2021-08-07] MEDS: IPRATROPIUM BROMIDE NEB SOLN 0.02% 2.5 ML VIAL INH SCH ×4 (01:12→21:05)
[2021-08-07] MEDS: LEVALBUTEROL 1.25MG/0.5ML NEB INH SCH ×4 (01:12→21:05)
[2021-08-07] MEDS: CEFEPIME 2,000 MG in SYRINGE 0 ML IV SCH ×2 (03:31→16:51)
[2021-08-07] MEDS: LEVOTHYROXINE SODIUM 112 MCG TABLET PO SCH (05:57)
[2021-08-07 06:36] LABS: Basophils # (auto) 0.01 K/uL (0-0.2); Basophils % (auto) 0.1 %; Hematocrit (blood only) 30.1 % (37-47); Hemoglobin 8.9 g/dL (12.0-16.0); Immature Granulocytes # (auto) 0.01 K/uL (0.00-0.02); Immature Granulocytes % (auto) 0.1 %; Lymphocytes # (auto) 0.79 K/uL (1.2-3.4); Lymphocytes % (auto) 8.9 %; Mean Corpuscular Hemoglobin 25.4 pg (25-34); Mean Corpuscular Hgb Conc 29.6 g/dL (32-36); Mean Platelet Volume 9.9 fL (7.4-10.4); Monocytes # (auto) 1.07 K/uL (0.11-0.59); Monocytes % (auto) 12.1 %; Neutrophils # (auto) 6.96 K/uL (1.4-6.5); Neutrophils % (auto) 78.8 %; Platelet Count 237 K/uL (130-400); RDW Coefficient of Variation 20.4 % (11.5-14.5); RDW Standard Deviation 63.7 fL (36.4-46.3); White Blood Count 8.84 K/uL (4.8-10.8)
[2021-08-07 07:00] LABS: BUN Creatinine Ratio 21.4 (10-20); Calcium 8.8 mg/dl (8.5-10.1); Creatinine Clr Calc Pharmacy 84.9 ml/min; Est GFR (African American) 113.9 ml/min; Est GFR (Non-African American) 98.2 ml/min; Potassium 3.8 mmol/L (3.5-5.1)
[2021-08-07 07:06] LABS: Anisocytosis Present; Polychromasia 1+
[2021-08-07] MEDS: PRAVASTATIN SOD 40 MG TAB PO SCH (07:47)
[2021-08-07] MEDS: PANTOprazole 40 MG TAB PO SCH ×2 (07:47→20:05)
[2021-08-07] MEDS: predniSONE 20 MG TAB PO SCH (07:47)
[2021-08-07] MEDS: buPROPion SR 100 MG TABCR PO SCH (07:47)
[2021-08-07] MEDS: SODIUM CHLORIDE 1 GM TABLET PO SCH ×3 (07:47→20:05)
[2021-08-07] MEDS: THIOTHIXENE 5 MG CAP PO SCH (07:47)
[2021-08-07] MEDS: LIOTHYRONINE SODIUM 5 MCG TAB PO SCH ×2 (07:47→20:05)
[2021-08-07] MEDS: VERAPAMIL HCL 240 MG TABCR PO SCH (07:47)
[2021-08-07] MEDS: MULTIVITAMIN TAB PO SCH (07:47)
[2021-08-07] MEDS: APIXABAN 5 MG TABLET PO SCH ×2 (07:47→20:06)
[2021-08-07] MEDS: FLUTICASONE/VILANTEROL 200/25MCG 14 PUFFS/INHALER INH SCH (07:48)
--- NOTE | 2021-08-07 09:09 | XCELERA ---
[id number]
[2021-08-07] MEDS: PROCHLORPERAZINE MALEATE 5 MG TAB PO PRN ×2 (09:56→20:04)
[2021-08-07] MEDS: AMIODARONE / D5W 360 MG/200 ML BAG IV SCH ×2 (09:56→21:33)
--- NOTE | 2021-08-07 13:08 | Cardiology Progress Note ---
Date of Service August 07, 2021 Assessment & Plan (1) Atrial flutter: (2) Anticoagulant long-term use: (3) Respiratory failure: (4) CHF (congestive heart failure): Plan: 1. Atrial flutter: Currently she is in atrial fibrillation, she has been going in and out of atrial fibrillation since initiating amiodarone. It is still early in the treatment however and I would continue the current dose for now. Her heart rate is a little bit fast while in atrial fibrillation but hopefully amiodarone will control that as well over the next day or so. I think the heart rate is acceptable for now. 2. Anticoagulation: She has been on Eliquis, she seems to be doing well on it. 3. Respiratory failure: I believe this is primarily COPD however she did have a suggestion of congestive heart failure on admission with her chest x-ray and her BNP. 4. Congestive heart failure: I believe she did have some congestive heart failure on presentation, she has lost fluid and some weight. Admission and Anticipated Discharge Date Admission Date: August 06, 2021 Subjective She looks a lot more comfortable than yesterday and feels less short of breath. She seems to be in good spirits. Physical Exam Physical Exam: Constitutional: Alert, cooperative and in no distress. HEENT: Unremarkable Neck: No jugular venous distention, carotid pulses are normal and equal bilaterally without bruits. Pulmonary: clear to auscultation . Cardiac: Regu irregular rapid rhythm with no murmur, gallop or rub. Abdomen: Soft, nontender with normal bowel sounds. Extremities: No edema. Distal pulses intact. Neurologic: No focal findings. Skin: No rash, ecchymoses or petechiae. Results & Data ([facility]) Vital Signs (Past 12 Hours) Vital Signs Temp Pulse Resp BP Pulse Ox 08/07/21 11:12 37.1 C 116 H 16 115/68 96 08/07/21 07:17 36.5 C 118 H 18 122/76 98 08/07/21 07:14 89 18 96 08/07/21 04:04 36.8 C 91 H 16 119/72 97 Diagnostic Findings CBC 08/07/21 Range/Units 06:19 WBC 8.84 (4.8-10.8) K/uL RBC 3.50 L (4.2-5.4) M/uL Hgb 8.9 L (12.0-16.0) g/dL Hct 30.1 L (37-47) % Plt Count 237 (130-400) K/uL Neut # (Auto) 6.96 H (1.4-6.5) K/uL Lymph # (Auto) 0.79 L (1.2-3.4) K/uL [place] # (Auto) 1.07 H (0.11-0.59) K/uL Eos # (Auto) 0.00 (0-0.5) K/uL Baso # (Auto) 0.01 (0-0.2) K/uL Comprehensive Metabolic Panel 08/07/21 Range/Units 06:19 Sodium 132 L (136-145) mmol/L Potassium 3.8 (3.5-5.1) mmol/L Chloride 94 L (98-107) mmol/L Carbon Dioxide 32 (21-32) mmol/L BUN 13 (7-18) mg/dl Creatinine 0.59 L (0.6-1.2) mg/dl Glucose 109 H (70-99) mg/dl Calcium 8.8 (8.5-10.1) mg/dl Intake and Output 08/06/21 08/07/21 08/07/21 22:59 06:59 14:59 Intake Total 300 / 1350 850 / 1350 312.607 / 312.607 Output Total 1074 / 3274 100 / 100 Balance 300 / -1925 -225 / -1925 212.607 / 212.607 Intake: IV 300 / 500 192.607 / 192.607 Amiodarone / D5w 150 mg In 100 100 / 100 ml @ 600 mls/hr IV NOW STA Rx#: [id number] Amiodarone / D5w 360 mg In 200 200 / 200 192.607 / 192.607 ml @ 0.5 MG/MIN 16.667 mls/hr IV .Q12H [facility] Rx#:[id number] Oral 850 / 850 120 / 120 Output: Urine Amount (Catheter) 1074 / 3274 100 / 100 Duffy/Indwelling 1074 100 / 100 Other: Weight 64.6 kg 64.3 kg Weight Measurement Method Built in [facility] Built in [facility] An echocardiogram done August 07, 2021 shows normal left ventricular systolic function with some elevation of right ventricular systolic pressure. Telemetry: She is transitioning in and out of atrial fibrillation in sinus rhythm, when in atrial fibrillation her heart rate is somewhat fast at around 120 bpm. PG Care Time/CCT Total # of Minutes Spent Total Time Spent with Patient: Total time spent is greater than 50% in coordination of care (as documented) at patient's floor/unit and/or counseling patient: Coding Level of Care Code 15392 Subseq Hosp Care Lvl 2 Diagnoses Atrial flutter I48.3 Atrial flutter type: typical Anticoagulant long-term use Z79.01 Respiratory failure J96.21 Chronicity: acute on chronic Respiratory failure complication: hypoxia CHF (congestive heart failure) I50.9 Heart failure chronicity: acute Heart failure type: unspecified (1) CHF (congestive heart failure) Heart failure chronicity: acute Heart failure type: unspecified Qualified Code(s): I50.9 - Heart failure, unspecified (2) Atrial flutter Atrial flutter type: typical Qualified Code(s): I48.3 - Typical atrial flutter (3) Respiratory failure Chronicity: acute on chronic Respiratory failure complication: hypoxia Qualified Code(s): J96.21 - Acute and chronic respiratory failure with hypoxia
--- NOTE | 2021-08-07 16:39 | Hospitalist Progress Note ---
Date of Service August 07, 2021 Assessment & Plan (1) Small cell carcinoma of lung: (2) Acute and chronic respiratory failure: (3) Acute exacerbation of chronic obstructive pulmonary disease (COPD): Plan: 60 yo F w/ PMH of CAD status post stent, A. 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 Patient also complained of left hip pain worse with motion that caused her to fall down on the day of arrival. Patient denies any fever chills or dysuria or abdominal pain at presentation. Patient did not take her nighttime meds prior to arrival secondary to not feeling well. She is being managed for the following: #. Acute on chronic respiratory failure: #. Pulmonary edema #. Small pleural effusion- L>R, c/t monitor #. AE COPD-on prednisone, nebulization, continue supplemental oxygen. Chronic respiratory failure secondary to COPD on home O2 - 3L, RAKESH on CPAP Multifactorial : COPD exacerbation, Mild pulmonary congestion, lung cancer, A. fib with RVR. Admitting CTA chest negative for pulmonary embolism, positive for pulmonary edema. Also revealed bilateral pleural effusion, pulmonary hypertension, unchanged 14 mm GARETH nodule. Admitting proBNP elevated at 3661. 08/07 echo---> LV systolic function normal, RV borderline dilated, RV systolic pressure elevated at 40-50 mmHg. EF 60 to 65%. Continue with supplemental oxygen as needed, wean down as tolerated to baseline. Wheezing getting better. Might be contributed by congestive heart failure, see below. Continue to monitor pleural effusion. #. A. fib with RVR #. Acute congestive heart failure. Patient noted to be in A. fib with RVR at presentation. Rapid A. fib secondary to illness versus missed p.o. medication versus both. On Eliquis for anticoagulation. c/w Eliquis Cardio managing amio gtt, Flecainaide on hold. Her admitting BNP elevated with admitting imaging showing cardiomegaly. 08/07 Echo as above Prior BNP levels WNL. Likely diastolic heart failure. Cardiology on board Strict I's and O's, Lasix per cardio. #. Left hip pain Admitting imaging ruled out fracture or any other acute findings. Patient reporting pain under control at bedside exam. Pain meds as needed, continue to monitor. #. Complicated UTI History of recurrent UTI on methenamine suppression treatment. Urine analysis suggestive of UTI, urinary culture preliminary gram-negative bacilli, follow final results. Continue with cefepime 08/06. #. 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 Mets to brain, mets to liver. Patient and her brother [primary contact] value comfort over any active intervention. They have a discussion with palliative care at [facility]. Upon discussion, they agreed to explore hospice. They also gave hint during the discussion that they had slightly touched hospice topic in the past. Given poor prognosis, highly recommend discussion with hospice. Patient and her brother Mr. Andrade to have discussion with hospital liaison tomorrow at 1 PM. #. Other chronic medical conditions: CAD status post stent, CVA, chronic hyponatremia, prediabetes, chronic anemia, schizoaffective/mood disorder, hypothyroidism Monitor as appropriate, resume home meds when able. DVT prophylaxis. Libertad DNR 08/06: Her brother, Mr. Andrade Files (contact #[phone]) contacted and given update, answered all the question, discuss about goals of care, wanted to explore hospice. He voiced understanding and was agreeable to the plan of care. Disposition: Patient and her brother Raymond to have discussion with hospice at 1 PM on 08/08. PT/OT consulted. Admission and Anticipated Discharge Date Admission Date: August 06, 2021 Subjective Patient was lying in bed, 5 L nasal cannula, NAD, no new acute events overnight. Patient reports vomiting times 1 in the morning after breakfast. Patient requested Compazine for her vomiting control which has been placed already. Patient reports overall pain getting better. Patient reports overall improvement in her shortness of breath. Patient looks better today. She has been in and out of A. fib, heart rate still not consistently controlled. Patient reports feeling weak. Patient denies headache/dizziness/chest pain/palpitation/other review of symptoms. Physical Exam Physical Exam: GENERAL: Alert and oriented x3. NAD, on 5L NC HEENT: + pallor, no icterus. Pupils equal, round and reactive to light. Oral mucosa moist. NECK: No JVD, no neck masses. HEART: S1 and S2 heard. Regular rate and rhythm. No murmur, no gallop. RESPIRATORY SYSTEM: Normal AP diameter. No accessory muscle use. + wheezing --> decreasing, + b/l crackles. ABDOMEN: Soft, bowel sounds present, + minimal tender diffuse, + distention mild. CENTRAL NERVOUS SYSTEM: No facial droop. Speech is clear. Obeys simple commands. Moves extremities. EXTREMITIES: No edema, no erythema seen. Results & Data Results & Data ([facility]) Vital Signs (Past 12 Hours) Vital Signs Temp Pulse Resp BP Pulse Ox 08/07/21 14:45 36.6 C 122 H 19 115/74 94 08/07/21 11:12 37.1 C 116 H 16 115/68 96 08/07/21 07:17 36.5 C 118 H 18 122/76 98 08/07/21 07:14 89 18 96
[2021-08-07] MEDS: MONTELUKAST SODIUM 10 MG TABLET PO SCH (20:05)
[2021-08-07] MEDS: ASPIRIN 81 MG ECTAB PO SCH (20:06)
[2021-08-07] MEDS: MAGNESIUM OXIDE 400 MG TAB PO SCH (20:39)
--- NOTE | 2021-08-07 21:35 | Electrocardiogram Report ---
Test Reason : Blood Pressure : / mmHG Vent. Rate : 158 BPM Atrial Rate : 141 BPM P-R Int : 000 ms QRS Dur : 072 ms QT Int : 316 ms P-R-T Axes : 000 100 063 degrees QTc Int : 512 ms Atrial fibrillation with rapid ventricular response Rightward axis Nonspecific T wave abnormality Abnormal ECG When compared with ECG of 21-MAR-2021 17:50, Atrial fibrillation has replaced Sinus rhythm Vent. rate has increased BY 57 BPM Nonspecific T wave abnormality now evident in Inferior leads T wave inversion now evident in Anterior leads Confirmed by Alberto Adorno ([id number]) on 08/07/2021 9:34:36 PM Referred By: REFERRED SELF Confirmed By:Alberto Adorno
--- NOTE | 2021-08-07 22:16 | Electrocardiogram Report ---
Test Reason : Blood Pressure : / mmHG Vent. Rate : 126 BPM Atrial Rate : 252 BPM P-R Int : 000 ms QRS Dur : 082 ms QT Int : 238 ms P-R-T Axes : 119 095 100 degrees QTc Int : 344 ms Atrial flutter with 2:1 A-V conduction Rightward axis Nonspecific ST and T wave abnormality Abnormal ECG When compared with ECG of 05-AUG-2021 23:57, (unconfirmed) Atrial flutter has replaced Atrial fibrillation Confirmed by Alberto Adorno ([id number]) on 08/07/2021 10:16:32 PM Referred By: REFERRED SELF Confirmed By:Alberto Adorno
[2021-08-08] MEDS: IPRATROPIUM BROMIDE NEB SOLN 0.02% 2.5 ML VIAL INH SCH ×3 (00:53→12:09)
[2021-08-08] MEDS: LEVALBUTEROL 1.25MG/0.5ML NEB INH SCH ×3 (00:53→12:09)
[2021-08-08] MEDS: CEFEPIME 2,000 MG in SYRINGE 0 ML IV SCH ×2 (03:36→17:03)
[2021-08-08] MEDS: LEVOTHYROXINE SODIUM 112 MCG TABLET PO SCH (05:38)
[2021-08-08 06:34] LABS: Hematocrit (blood only) 27.8 % (37-47); Hemoglobin 8.4 g/dL (12.0-16.0); Mean Corpuscular Hemoglobin 25.3 pg (25-34); Mean Corpuscular Hgb Conc 30.2 g/dL (32-36); Mean Corpuscular Volume 83.7 fL (80-100); Mean Platelet Volume 10.3 fL (7.4-10.4); Platelet Count 229 K/uL (130-400); RDW Coefficient of Variation 19.6 % (11.5-14.5); RDW Standard Deviation 60.7 fL (36.4-46.3); Red Blood Count 3.32 M/uL (4.2-5.4); White Blood Count 8.68 K/uL (4.8-10.8)
[2021-08-08 07:04] LABS: BUN Creatinine Ratio 32.7 (10-20); Calcium 8.7 mg/dl (8.5-10.1); Est GFR (African American) 128.3 ml/min; Est GFR (Non-African American) 110.7 ml/min; Potassium 3.6 mmol/L (3.5-5.1)
[2021-08-08] MEDS: LIOTHYRONINE SODIUM 5 MCG TAB PO SCH ×2 (07:40→20:00)
[2021-08-08] MEDS: PANTOprazole 40 MG TAB PO SCH ×2 (07:40→20:00)
[2021-08-08] MEDS: buPROPion SR 100 MG TABCR PO SCH (07:41)
[2021-08-08] MEDS: predniSONE 20 MG TAB PO SCH (07:41)
[2021-08-08] MEDS: PRAVASTATIN SOD 40 MG TAB PO SCH (07:41)
[2021-08-08] MEDS: MULTIVITAMIN TAB PO SCH (07:41)
[2021-08-08] MEDS: APIXABAN 5 MG TABLET PO SCH ×2 (07:41→20:00)
[2021-08-08] MEDS: SODIUM CHLORIDE 1 GM TABLET PO SCH ×3 (07:41→20:00)
[2021-08-08] MEDS: THIOTHIXENE 5 MG CAP PO SCH (07:41)
[2021-08-08] MEDS: FLUTICASONE/VILANTEROL 200/25MCG 14 PUFFS/INHALER INH SCH (07:42)
[2021-08-08] MEDS: VERAPAMIL HCL 240 MG TABCR PO SCH (07:42)
[2021-08-08] MEDS: MAGNESIUM OXIDE 400 MG TAB PO SCH ×2 (07:42→20:00)
[2021-08-08] MEDS: PROCHLORPERAZINE MALEATE 5 MG TAB PO PRN (07:44)
[2021-08-08] MEDS: AMIODARONE / D5W 360 MG/200 ML BAG IV SCH ×2 (09:39→21:18)
[2021-08-08] MEDS: POLYETHYLENE (MIRALAX) 17 GM PACK PO SCH (11:33)
[2021-08-08] MEDS: DOCUSATE SODIUM/SENNA 50/8.6MG TAB PO SCH (11:33)
[2021-08-08] MEDS ORDERED: FUROSEMIDE INJ 20 MG/2 ML VIAL IV ONE (18:10)
--- NOTE | 2021-08-08 18:15 | Hospitalist Progress Note ---
Date of Service August 08, 2021 Assessment & Plan (1) Small cell carcinoma of lung: (2) Acute and chronic respiratory failure: (3) Acute exacerbation of chronic obstructive pulmonary disease (COPD): Plan: 60 yo F w/ PMH of CAD status post stent, A. 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 Patient also complained of left hip pain worse with motion that caused her to fall down on the day of arrival. Patient denies any fever chills or dysuria or abdominal pain at presentation. Patient did not take her nighttime meds prior to arrival secondary to not feeling well. She is being managed for the following: #. Acute on chronic respiratory failure: #. Pulmonary edema #. Small pleural effusion- L>R, c/t monitor #. AE COPD-on prednisone, nebulization, continue supplemental oxygen. Chronic respiratory failure secondary to COPD on home O2 - 3L, RAKESH on CPAP Multifactorial : COPD exacerbation, Mild pulmonary congestion, lung cancer, A. fib with RVR. Admitting CTA chest negative for pulmonary embolism, positive for pulmonary edema. Also revealed bilateral pleural effusion, pulmonary hypertension, unchanged 14 mm GARETH nodule. Admitting proBNP elevated at 3661. 08/07 echo---> LV systolic function normal, RV borderline dilated, RV systolic pressure elevated at 40-50 mmHg. EF 60 to 65%. Continue with supplemental oxygen as needed, wean down as tolerated to baseline. Wheezing getting better. Might be contributed by congestive heart failure, see below. Continue to monitor pleural effusion. #. A. fib with RVR #. Acute congestive heart failure. Patient noted to be in A. fib with RVR at presentation. Rapid A. fib secondary to illness versus missed p.o. medication versus both. On Eliquis for anticoagulation. c/w Eliquis Cardio managing amio gtt, Flecainaide on hold. Her admitting BNP elevated with admitting imaging showing cardiomegaly. 08/07 Echo as above Prior BNP levels WNL. Likely diastolic heart failure. Cardiology on board Strict I's and O's, Lasix prn #. Left hip pain Admitting imaging ruled out fracture or any other acute findings. Patient reporting pain under control at bedside exam. Pain meds as needed, continue to monitor. #. Complicated UTI History of recurrent UTI on methenamine suppression treatment. Urine analysis suggestive of UTI, urinary culture pansensitive E. coli. Continue with ATB 08/06. #. Recurrent metastatic SCLC #. 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 Mets to brain, mets to liver. Patient and her brother [primary contact] value comfort over any active intervention. They have a discussion with palliative care at [facility]. Upon discussion, they agreed to explore hospice. They also gave hint during the discussion that they had slightly touched hospice topic in the past. Given poor prognosis, highly recommend discussion with hospice. Patient and her brother Mr. Andrade to have discussion with home hospice aide 08/08 at 1 PM. #. Other chronic medical conditions: CAD status post stent, CVA, chronic hyponatremia, prediabetes, chronic anemia, schizoaffective/mood disorder, hypothyroidism Monitor as appropriate, resume home meds when able. DVT prophylaxis. Libertad DNR 08/06: Her brother, Mr. Andrade Files (contact #[phone]) contacted and given update, answered all the question, discuss about goals of care, wanted to explore hospice. He voiced understanding and was agreeable to the plan of care. Disposition: Patient and her brother Raymond along with CM had discussion with hospice at 1 PM on 08/08. According to CM, patient is going home with hospice on Tuesday. When again checked during the evening, patient said to continue all the medical management for now. Also she stated that she does not want to go to home. Updated patient's RN. Will update CM. Admission and Anticipated Discharge Date Admission Date: August 06, 2021 Subjective Patient was lying in bed, 5 L nasal cannula, NAD, no new acute events overnight. Patient requested different food, can eat any kind of foods he likes. Patient has not moved bowels in 6 days. Will add bowel regimen. Patient reports overall pain getting better. Patient reports overall improvement in her shortness of breath. She has been in and out of A. fib, heart rate still not consistently controlled. Patient reports feeling weak. Patient denies headache/dizziness/chest pain/palpitation/other review of symptoms. Physical Exam Physical Exam: GENERAL: Alert and oriented x3. NAD, on 5L NC HEENT: + pallor, no icterus. Pupils equal, round and reactive to light. Oral mucosa moist. NECK: No JVD, no neck masses. HEART: S1 and S2 heard. Regular rate and rhythm. No murmur, no gallop. RESPIRATORY SYSTEM: Normal AP diameter. No accessory muscle use. + wheezing --> decreasing, + b/l crackles. ABDOMEN: Soft, bowel sounds present, + minimal tender diffuse, + distention mild. CENTRAL NERVOUS SYSTEM: No facial droop. Speech is clear. Obeys simple commands. Moves extremities. EXTREMITIES: No edema, no erythema seen. Results & Data Results & Data ([place]) Vital Signs (Past 12 Hours) Vital Signs Temp Pulse Resp BP Pulse Ox Pulse Ox 08/08/21 16:02 36.7 C 114 H 22 128/79 95 08/08/21 15:48 95 08/08/21 15:16 92 08/08/21 12:09 118 H 20 93 08/08/21 11:54 36.4 C L 92 H 20 112/71 91 08/08/21 07:52 36.5 C 111 H 20 122/79 94
[2021-08-08] MEDS: ASPIRIN 81 MG ECTAB PO SCH (20:00)
[2021-08-08] MEDS: MONTELUKAST SODIUM 10 MG TABLET PO SCH (20:00)
[2021-08-09] MEDS: CEFEPIME 2,000 MG in SYRINGE 0 ML IV SCH ×2 (03:59→17:14)
[2021-08-09] MEDS: LEVOTHYROXINE SODIUM 112 MCG TABLET PO SCH (05:49)
[2021-08-09 06:12] LABS: Hematocrit (blood only) 28.2 % (37-47); Hemoglobin 8.6 g/dL (12.0-16.0); Mean Corpuscular Hemoglobin 25.4 pg (25-34); Mean Corpuscular Hgb Conc 30.5 g/dL (32-36); Mean Corpuscular Volume 83.2 fL (80-100); Mean Platelet Volume 10.2 fL (7.4-10.4); Platelet Count 238 K/uL (130-400); RDW Coefficient of Variation 19.4 % (11.5-14.5); RDW Standard Deviation 58.8 fL (36.4-46.3); Red Blood Count 3.39 M/uL (4.2-5.4); White Blood Count 9.25 K/uL (4.8-10.8)
[2021-08-09 06:49] LABS: BUN Creatinine Ratio 31.7 (10-20); Calcium 8.4 mg/dl (8.5-10.1); Creatinine Clr Calc Pharmacy 115.9 ml/min; Est GFR (African American) 125.4 ml/min; Est GFR (Non-African American) 108.2 ml/min; Potassium 3.7 mmol/L (3.5-5.1)
[2021-08-09] MEDS: AMIODARONE / D5W 360 MG/200 ML BAG IV SCH ×2 (09:20→22:13)
[2021-08-09] MEDS: FLUTICASONE/VILANTEROL 200/25MCG 14 PUFFS/INHALER INH SCH (09:21)
[2021-08-09] MEDS: PRAVASTATIN SOD 40 MG TAB PO SCH (09:22)
[2021-08-09] MEDS: buPROPion SR 100 MG TABCR PO SCH (09:23)
[2021-08-09] MEDS: DOCUSATE SODIUM/SENNA 50/8.6MG TAB PO SCH (09:23)
[2021-08-09] MEDS: predniSONE 20 MG TAB PO SCH (09:23)
[2021-08-09] MEDS: MULTIVITAMIN TAB PO SCH (09:23)
[2021-08-09] MEDS: PROCHLORPERAZINE MALEATE 5 MG TAB PO PRN ×2 (09:24→23:23)
[2021-08-09] MEDS: THIOTHIXENE 5 MG CAP PO SCH (09:24)
[2021-08-09] MEDS: VERAPAMIL HCL 240 MG TABCR PO SCH (09:24)
[2021-08-09] MEDS: MAGNESIUM OXIDE 400 MG TAB PO SCH ×2 (09:25→20:33)
[2021-08-09] MEDS: APIXABAN 5 MG TABLET PO SCH ×2 (09:25→20:33)
[2021-08-09] MEDS: LIOTHYRONINE SODIUM 5 MCG TAB PO SCH ×2 (09:25→20:33)
[2021-08-09] MEDS: POLYETHYLENE (MIRALAX) 17 GM PACK PO SCH (09:26)
[2021-08-09] MEDS: PANTOprazole 40 MG TAB PO SCH ×2 (09:26→20:33)
[2021-08-09] MEDS: SODIUM CHLORIDE 1 GM TABLET PO SCH ×3 (09:26→20:33)
[2021-08-09] MEDS: LEVALBUTEROL 1.25MG/0.5ML NEB INH PRN (15:54)
[2021-08-09] MEDS: IPRATROPIUM BROMIDE NEB SOLN 0.02% 2.5 ML VIAL INH PRN (15:54)
--- NOTE | 2021-08-09 17:48 | Hospitalist Progress Note ---
Date of Service August 09, 2021 Assessment & Plan (1) Small cell carcinoma of lung: (2) Acute and chronic respiratory failure: (3) Acute exacerbation of chronic obstructive pulmonary disease (COPD): Plan: 60 yo F w/ PMH of CAD status post stent, A. 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 Patient also complained of left hip pain worse with motion that caused her to fall down on the day of arrival. Patient denies any fever chills or dysuria or abdominal pain at presentation. Patient did not take her nighttime meds prior to arrival secondary to not feeling well. She is being managed for the following: #. Acute on chronic respiratory failure: #. Pulmonary edema -- likely 2/2 Afib RVR component and likely diastolic HF #. Small pleural effusion- L>R, c/t monitor #. AE COPD-on prednisone, nebulization, continue supplemental oxygen. Chronic respiratory failure secondary to COPD on home O2 - 3L, RAKESH on CPAP Multifactorial : COPD exacerbation, Mild pulmonary congestion, lung cancer, A. fib with RVR. Admitting CTA chest negative for pulmonary embolism, positive for pulmonary edema. Also revealed bilateral pleural effusion, pulmonary hypertension, unchanged 14 mm GARETH nodule. Admitting proBNP elevated at 3661. 08/07 echo---> LV and RV systolic function normal, RV borderline dilated, RV systolic pressure elevated at 40-50 mmHg. EF 60 to 65%. Continue with supplemental oxygen as needed, wean down as tolerated to baseline. Wheezing resolved Might be contributed by congestive heart failure, see below. Continue to monitor pleural effusion. #. A. fib with RVR #. Acute congestive heart failure/diastolic Patient noted to be in A. fib with RVR at presentation. Rapid A. fib secondary to illness versus missed p.o. medication versus both. On Eliquis for anticoagulation. c/w Eliquis Cardio managing amio gtt, Flecainaide on hold. Her admitting BNP elevated with admitting imaging showing cardiomegaly. 08/07 Echo as above Prior BNP levels WNL. Likely diastolic heart failure. Cardiology on board Strict I's and O's, Lasix prn #. Left hip pain Admitting imaging ruled out fracture or any other acute findings. Patient reporting pain under control at bedside exam. Pain meds as needed, continue to monitor. #. Complicated UTI History of recurrent UTI on methenamine suppression treatment. Urine analysis suggestive of UTI, urinary culture pansensitive E. coli. Continue with ATB 08/06. #. Recurrent metastatic SCLC #. 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 Mets to brain, mets to liver. Patient and her brother [primary contact] value comfort over any active intervention. They have a discussion with palliative care at [facility]. Upon discussion, they agreed to explore hospice. They also gave hint during the discussion that they had slightly touched hospice topic in the past. Given poor prognosis, highly recommend discussion with hospice. Patient and her brother Mr. Andrade to have discussion with nurse liaison 08/08 at 1 PM. #. Other chronic medical conditions: CAD status post stent, CVA, chronic hyponatremia, prediabetes, chronic anemia, schizoaffective/mood disorder, hy pothyroidism Monitor as appropriate, resume home meds when able. DVT prophylaxis. Libertad DNR 08/06: Her brother, Mr. Andrade Files (contact #[phone]) contacted and given update, answered all the question, discuss about goals of care, wanted to explore hospice. He voiced understanding and was agreeable to the plan of care. Disposition: Patient and her brother Raymond along with CM had discussion with hospice at 1 PM on 08/08. Patient's wants to go to facility with hospice. CM working with DC planning. Admission and Anticipated Discharge Date Admission Date: August 06, 2021 Subjective Patient was sitting up in bed, 5 L nasal cannula, NAD, no new acute events overnight. Patient reports eating okay and see small bowel yesterday. Patient reports overall pain getting better. Patient reports overall improvement in her shortness of breath. She has been in and out of A. fib, heart rate still not consistently controlled. Patient reports feeling weak. Patient denies headache/dizziness/chest pain/palpitation/other review of symptoms. Physical Exam Physical Exam: GENERAL: Alert and oriented x3. NAD, on 5L NC HEENT: + pallor, no icterus. Pupils equal, round and reactive to light. Oral mucosa moist. NECK: No JVD, no neck masses. HEART: S1 and S2 heard. Regular rate and rhythm. No murmur, no gallop. RESPIRATORY SYSTEM: Normal AP diameter. No accessory muscle use. no wheezing, + b/l crackles. ABDOMEN: Soft, bowel sounds present,nontender, + distention mild. CENTRAL NERVOUS SYSTEM: No facial droop. Speech is clear. Obeys simple commands. Moves extremities. EXTREMITIES: No edema, no erythema seen. Results & Data Results & Data ([facility]) Vital Signs (Past 12 Hours) Vital Signs Temp Pulse Resp BP BP Pulse Ox 08/09/21 15:55 83 24 91 08/09/21 15:39 36.4 C L 82 20 112/72 91 08/09/21 15:10 93 08/09/21 15:00 84 L 08/09/21 11:34 36.5 C 116 H 20 139/85 96 08/09/21 08:08 36.8 C 85 19 152/92 H 96
[2021-08-09] MEDS: ASPIRIN 81 MG ECTAB PO SCH (20:33)
[2021-08-09] MEDS: MONTELUKAST SODIUM 10 MG TABLET PO SCH (20:33)
[2021-08-10] MEDS: CEFEPIME 2,000 MG in SYRINGE 0 ML IV SCH (05:03)
[2021-08-10] MEDS: LEVOTHYROXINE SODIUM 112 MCG TABLET PO SCH (06:09)
[2021-08-10] MEDS: PANTOprazole 40 MG TAB PO SCH ×2 (08:20→20:53)
[2021-08-10] MEDS: SODIUM CHLORIDE 1 GM TABLET PO SCH ×3 (08:20→20:53)
[2021-08-10] MEDS: MULTIVITAMIN TAB PO SCH (08:21)
[2021-08-10] MEDS: VERAPAMIL HCL 240 MG TABCR PO SCH (08:21)
[2021-08-10] MEDS: THIOTHIXENE 5 MG CAP PO SCH (08:21)
[2021-08-10] MEDS: predniSONE 20 MG TAB PO SCH (08:21)
[2021-08-10] MEDS: PRAVASTATIN SOD 40 MG TAB PO SCH (08:21)
[2021-08-10] MEDS: DOCUSATE SODIUM/SENNA 50/8.6MG TAB PO SCH (08:22)
[2021-08-10] MEDS: LIOTHYRONINE SODIUM 5 MCG TAB PO SCH ×2 (08:22→20:52)
[2021-08-10] MEDS: buPROPion SR 100 MG TABCR PO SCH (08:22)
[2021-08-10] MEDS: APIXABAN 5 MG TABLET PO SCH ×2 (08:22→20:52)
[2021-08-10] MEDS: MAGNESIUM OXIDE 400 MG TAB PO SCH ×2 (08:23→20:53)
[2021-08-10] MEDS: FLUTICASONE/VILANTEROL 200/25MCG 14 PUFFS/INHALER INH SCH (08:23)
[2021-08-10] MEDS: POLYETHYLENE (MIRALAX) 17 GM PACK PO SCH (08:23)
[2021-08-10] MEDS: AMIODARONE / D5W 360 MG/200 ML BAG IV SCH ×2 (08:36→21:20)
[2021-08-10 09:01] LABS: Hematocrit (blood only) 29.3 % (37-47); Hemoglobin 8.9 g/dL (12.0-16.0); Mean Corpuscular Hemoglobin 25.4 pg (25-34); Mean Corpuscular Hgb Conc 30.4 g/dL (32-36); Mean Corpuscular Volume 83.5 fL (80-100); Mean Platelet Volume 9.7 fL (7.4-10.4); Platelet Count 234 K/uL (130-400); RDW Coefficient of Variation 19.3 % (11.5-14.5); RDW Standard Deviation 59.5 fL (36.4-46.3); Red Blood Count 3.51 M/uL (4.2-5.4); White Blood Count 10.21 K/uL (4.8-10.8)
[2021-08-10 09:21] LABS: BUN Creatinine Ratio 20.6 (10-20); Calcium 8.1 mg/dl (8.5-10.1); Creatinine Clr Calc Pharmacy 101.8 ml/min; Est GFR (African American) 120.2 ml/min; Est GFR (Non-African American) 103.7 ml/min; Potassium 3.6 mmol/L (3.5-5.1)
[2021-08-10] MEDS: cephALEXin 500 MG CAP PO SCH (16:40)
--- NOTE | 2021-08-10 20:17 | Hospitalist Progress Note ---
Date of Service August 10, 2021 Assessment & Plan (1) Small cell carcinoma of lung: (2) Acute and chronic respiratory failure: (3) Acute exacerbation of chronic obstructive pulmonary disease (COPD): Plan: 60 yo F w/ PMH of CAD status post stent, A. fib on Eliquis, recurrent metastatic SCLC sp chemoradiation, CVA, chronic respiratory failure secondary to COPD on home O2 (3L), RAKESH on CPAP, chronic hyponatremia, SIADH, prediabetes, chronic anemia (baseline hemoglobin 9), schizoaffective/mood disorder, hypothyroidism, prediabetes, esophageal dysmotility as per records, recurrent UTIs on methenamine suppression Rx, past tobacco abuse presented 08/05 to our ED with complaint of worsening SOB for few weeks [employer] WORK[employer] associated with left-sided chest pain but no cough symptoms. Patient also complained of left hip pain worse with motion that caused her to fall down on the day of arrival. Patient denies any fever chills or dysuria or abdominal pain at presentation. Patient did not take her nighttime meds prior to arrival secondary to not feeling well. She is being managed for the following: #. Acute on chronic respiratory failure: #. Pulmonary edema -- likely 2/2 Afib RVR component and likely diastolic HF #. Small pleural effusion- L>R, c/t monitor #. AE COPD-on prednisone, nebulization, continue supplemental oxygen. Chronic respiratory failure secondary to COPD on home O2 - 3L, RAKESH on CPAP Multifactorial : COPD exacerbation, Mild pulmonary congestion, lung cancer, A. fib with RVR. Admitting CTA chest negative for pulmonary embolism, positive for pulmonary edema. Also revealed bilateral pleural effusion, pulmonary hypertension, unchanged 14 mm GARETH nodule. Admitting proBNP elevated at 3661. 08/07 echo---> LV and RV systolic function normal, RV borderline dilated, RV systolic pressure elevated at 40-50 mmHg. EF 60 to 65%. Continue with supplemental oxygen as needed, wean down as tolerated to baseline. Wheezing resolved Might be contributed by congestive heart failure, see below. Continue to monitor pleural effusion. #. A. fib with RVR #. Acute congestive heart failure/diastolic Patient noted to be in A. fib with RVR at presentation. Rapid A. fib secondary to illness versus missed p.o. medication versus both. On Eliquis for anticoagulation. c/w Eliquis Cardio managing amio gtt, Flecainaide on hold. Her admitting BNP elevated with admitting imaging showing cardiomegaly. 08/07 Echo as above Prior BNP levels WNL. Likely diastolic heart failure. Cardiology on board, await further recommendations Strict I's and O's, Lasix prn, will likely give one dose lasix junie #. Left hip pain Admitting imaging ruled out fracture or any other acute findings. Patient reporting pain under control at bedside exam. Pain meds as needed, continue to monitor. #. Complicated UTI History of recurrent UTI on methenamine suppression treatment. Urine analysis suggestive of UTI, urinary culture pansensitive E. coli. Continue with ATB 08/06. #. Recurrent metastatic SCLC #. Chronic hyponatremia likely SIADH 2/2 SCLC Patient voluntarily stopped taking chemotherapy 3 weeks ago [employer]. 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 Mets to brain, mets to liver. Patient and her brother [primary contact] value comfort over any active intervention. They have a discussion with palliative [facility] at [facility]. Upon discussion, they agreed to explore hospice. They also gave hint during the discussion that they had slightly touched hospice topic in the past. Given poor prognosis, highly recommend discussion with hospice. Patient and her brother Mr. Andrade to have discussion with liaison engineer 08/08 at 1 PM. #. Other chronic medical conditions: CAD status post stent, CVA, chronic hyponatremia, prediabetes, chronic anemia, schizoaffective/mood disorder, hypothyroidism Monitor as appropriate, resume home meds when able. DVT prophylaxis. Libertad DNR 08/06: Her brother, Mr. Andrade Files (contact #[phone]) contacted and given update, answered all the question, discuss about goals of care, wanted to explore hospice. He voiced understanding and was agreeable to the plan of care. Disposition: Patient and her brother Raymond along with CM had discussion with hospice at 1 PM on 08/08. Patient's wants to go to facility with hospice. CM working with DC planning. Admission and Anticipated Discharge Date Admission Date: August 06, 2021 Subjective Patient was sitting up in bed, 6 L nasal cannula, NAD, no new acute events overnight. Patient reports eating okay and BM 2 d ago. Patient reports overall pain getting better. Patient reports overall improvement in her shortness of breath. She has been in and out of A. fib, heart rate still not consistently controlled. Patient reports feeling weak. Patient denies headache/dizziness/chest pain/palpitation/other review of symptoms. Physical Exam Physical Exam: GENERAL: Alert and oriented x3. NAD, on 5L NC HEENT: + pallor, no icterus. Pupils equal, round and reactive to light. Oral mucosa moist. NECK: No JVD, no neck masses. HEART: S1 and S2 heard. Regular rate and rhythm. No murmur, no gallop. RESPIRATORY SYSTEM: Normal AP diameter. No accessory muscle use. no wheezing, + b/l crackles. ABDOMEN: Soft, bowel sounds present,nontender, + distention mild. CENTRAL NERVOUS SYSTEM: No facial droop. Speech is clear. Obeys simple commands. Moves extremities. EXTREMITIES: No edema, no erythema seen. Results & Data Results & Data ([facility]) Vital Signs (Past 12 Hours) Vital Signs Temp Pulse Pulse Resp BP BP Pulse Ox 08/10/21 19:46 36.6 C 77 18 149/86 H 95 08/10/21 15:48 36.7 C 66 19 121/73 97 08/10/21 15:04 68 08/10/21 12:33 36.8 C 73 22 122/72 91
[2021-08-10] MEDS: ASPIRIN 81 MG ECTAB PO SCH (20:51)
[2021-08-10] MEDS: MONTELUKAST SODIUM 10 MG TABLET PO SCH (20:53)
[2021-08-11] MEDS: LEVOTHYROXINE SODIUM 112 MCG TABLET PO SCH (05:49)
[2021-08-11 06:33] LABS: Hematocrit (blood only) 29.6 % (37-47); Hemoglobin 8.9 g/dL (12.0-16.0); Mean Corpuscular Hemoglobin 25.2 pg (25-34); Mean Corpuscular Hgb Conc 30.1 g/dL (32-36); Mean Corpuscular Volume 83.9 fL (80-100); Mean Platelet Volume 10.3 fL (7.4-10.4); Platelet Count 236 K/uL (130-400); RDW Coefficient of Variation 19.4 % (11.5-14.5); RDW Standard Deviation 59.5 fL (36.4-46.3); Red Blood Count 3.53 M/uL (4.2-5.4); White Blood Count 11.88 K/uL (4.8-10.8)
[2021-08-11 07:05] LABS: BUN Creatinine Ratio 25.9 (10-20); Calcium 8.8 mg/dl (8.5-10.1); Creatinine Clr Calc Pharmacy 139.9 ml/min; Est GFR (African American) 133.9 ml/min; Est GFR (Non-African American) 115.6 ml/min
[2021-08-11] MEDS: AMIODARONE / D5W 360 MG/200 ML BAG IV SCH ×2 (07:37→20:00)
[2021-08-11] MEDS ORDERED: FUROSEMIDE INJ 20 MG/2 ML VIAL IV ONE ×3 (07:45→20:56)
[2021-08-11] MEDS: SODIUM CHLORIDE 1 GM TABLET PO SCH ×3 (08:36→21:08)
[2021-08-11] MEDS: MULTIVITAMIN TAB PO SCH (08:36)
[2021-08-11] MEDS: buPROPion SR 100 MG TABCR PO SCH (08:36)
[2021-08-11] MEDS: cephALEXin 500 MG CAP PO SCH ×2 (08:37→21:09)
[2021-08-11] MEDS: PANTOprazole 40 MG TAB PO SCH ×2 (08:37→21:08)
[2021-08-11] MEDS: FLUTICASONE/VILANTEROL 200/25MCG 14 PUFFS/INHALER INH SCH (08:38)
[2021-08-11] MEDS: LIOTHYRONINE SODIUM 5 MCG TAB PO SCH ×2 (08:38→21:08)
[2021-08-11] MEDS: APIXABAN 5 MG TABLET PO SCH ×2 (08:38→21:09)
[2021-08-11] MEDS: PRAVASTATIN SOD 40 MG TAB PO SCH (08:38)
[2021-08-11] MEDS: MAGNESIUM OXIDE 400 MG TAB PO SCH (08:38)
[2021-08-11] MEDS: VERAPAMIL HCL 240 MG TABCR PO SCH (08:39)
[2021-08-11] MEDS: THIOTHIXENE 5 MG CAP PO SCH (08:39)
[2021-08-11] MEDS: DOCUSATE SODIUM/SENNA 50/8.6MG TAB PO SCH (08:59)
--- NOTE | 2021-08-11 14:53 | Hospitalist Progress Note ---
Date of Service August 11, 2021 Assessment & Plan (1) Small cell carcinoma of lung: (2) Acute and chronic respiratory failure: (3) Acute exacerbation of chronic obstructive pulmonary disease (COPD): Plan: 60 yo F w/ PMH of CAD status post stent, A. 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 Patient also complained of left hip pain worse with motion that caused her to fall down on the day of arrival. Patient denies any fever chills or dysuria or abdominal pain at presentation. Patient did not take her nighttime meds prior to arrival secondary to not feeling well. She is being managed for the following: #. Acute on chronic respiratory failure: #. Pulmonary edema -- likely 2/2 Afib RVR component and likely diastolic HF #. Small pleural effusion- L>R, c/t monitor #. AE COPD-on prednisone, nebulization, continue supplemental oxygen. Chronic respiratory failure secondary to COPD on home O2 - 3L, RAKESH on CPAP Multifactorial : COPD exacerbation, Mild pulmonary congestion, lung cancer, A. fib with RVR. Admitting CTA chest negative for pulmonary embolism, positive for pulmonary edema. Also revealed bilateral pleural effusion, pulmonary hypertension, unchanged 14 mm GARETH nodule. Admitting proBNP elevated at 3661. 08/07 echo---> LV and RV systolic function normal, RV borderline dilated, RV systolic pressure elevated at 40-50 mmHg. EF 60 to 65%. Continue with supplemental oxygen as needed, wean down as tolerated to baseline. Wheezing resolved Might be contributed by congestive heart failure, see below. Lasix as needed. giving 20 mg iv lasix today. Continue to monitor pleural effusion. #. A. fib with RVR #. Acute congestive heart failure/diastolic Patient noted to be in A. fib with RVR at presentation. Rapid A. fib secondary to illness versus missed p.o. medication versus both. On Eliquis for anticoagulation. c/w Eliquis Cardio managing amio gtt, Flecainaide on hold. Her admitting BNP elevated with admitting imaging showing cardiomegaly. 08/07 Echo as above Prior BNP levels WNL. Likely diastolic heart failure. Cardiology on board, await further recommendations Strict I's and O's, Lasix prn, lasix today. #. Left hip pain Admitting imaging ruled out fracture or any other acute findings. Patient reporting pain under control at bedside exam. Pain meds as needed, continue to monitor. #. Complicated UTI History of recurrent UTI on methenamine suppression treatment. Urine analysis suggestive of UTI, urinary culture pansensitive E. coli. Continue with ATB 08/06. #. Recurrent metastatic SCLC #. 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 Mets to brain, mets to liver. Patient and her brother [primary contact] value comfort over any active intervention. They have a discussion with palliative care at [facility]. Upon discussion, they agreed to explore hospice. They also gave hint during the discussion that they had slightly touched hospice topic in the past. Given poor prognosis, highly recommend discussion with hospice. Patient and her brother Mr. Andrade had discussion with hospice community liaison 08/08 at 1 PM. #. Other chronic medical conditions: CAD status post stent, CVA, chronic hyponatremia, prediabetes, chronic anemia, schizoaffective/mood disorder, hypothyroidism Monitor as appropriate, resume home meds when able. Urea BID for hyponatremia. c/t monitor. DVT prophylaxis. Libertad DNR 08/06: Her brother, Mr. Andrade Files (contact #[phone]) contacted and given update, answered all the question, discuss about goals of care, wanted to explore hospice. He voiced understanding and was agreeable to the plan of care. Disposition: Patient and her brother Raymond along with CM had discussion with hospice at 1 PM on 08/08. Patient's wants to go to facility with hospice. CM working with DC planning. Can go when placement found. Admission and Anticipated Discharge Date Admission Date: August 06, 2021 Subjective Patient was lying in bed, 6 L nasal cannula, NAD, no new acute events overnight. Patient reports eating okay and BM 3 d ago. Will add bowel regimen Pt reports some SOB, will give her lasix. Patient reports overall pain getting better. She has been in and out of A. fib, heart rate still not consistently controlled. Patient reports feeling weak. Patient denies headache/dizziness/chest pain/palpitation/other review of symptoms. Physical Exam Physical Exam: GENERAL: Alert and oriented x3. NAD, on 6L NC HEENT: pallor, no icterus. Pupils equal, round and reactive to light. Oral mucosa moist. NECK: No JVD, no neck masses. HEART: S1 and S2 heard. Regular rate and rhythm. No murmur, no gallop. RESPIRATORY SYSTEM: Normal AP diameter. No accessory muscle use. no wheezing, + b/l crackles. ABDOMEN: Soft, bowel sounds present,nontender, + distention mild. CENTRAL NERVOUS SYSTEM: No facial droop. Speech is clear. Obeys simple co mmands. Moves extremities. EXTREMITIES: No edema, no erythema seen. Results & Data Results & Data ([facility]) Vital Signs (Past 12 Hours) Vital Signs Temp Pulse Resp BP Pulse Ox 08/11/21 11:35 36.4 C L 110 H 20 129/85 99 08/11/21 07:20 36.6 C 112 H 19 136/71 96 08/11/21 04:04 36.6 C 79 16 138/78 99
--- NOTE | 2021-08-11 17:03 | Cardiology Progress Note ---
Date of Service August 11, 2021 Assessment & Plan (1) Atrial flutter: (2) Anticoagulant long-term use: (3) Respiratory failure: (4) CHF (congestive heart failure): Plan: 1. Atrial flutter: She is in atrial fibrillation or flutter today at a rate which is slightly elevated, around 100, however she is spending most of her time in sinus rhythm now. I believe on amiodarone there is been a gradual decrease in the time she spends in atrial fibrillation. I think it would be reasonable to continue amiodarone to try to control her atrial arrhythmia. She is still early in the course of therapy as amiodarone takes long time to take effect. I think we should start to transition from intravenous to oral amiodarone assuming she can take the pill. I will try that starting tonight and overlap. 2. Anticoagulation: She has been on Eliquis, she seems to be doing well on it. 3. Respiratory failure: I believe this is primarily COPD however she did have a suggestion of congestive heart failure on admission with her chest x-ray and her BNP. Her weight has been stable for some time and I do not believe she is in significant heart failure currently. 4. Congestive heart failure: I believe she did have some congestive heart failure on presentation, she has lost fluid and some weight. Admission and Anticipated Discharge Date Admission Date: August 06, 2021 Subjective She tells me that she is feeling well today, although she does not look very comfortable. Physical Exam Physical Exam: Constitutional: Alert, cooperative and in no distress. HEENT: Unremarkable Neck: No jugular venous distention, carotid pulses are normal and equal b ilaterally without bruits. Pulmonary: clear to auscultation . Cardiac: Regu irregular rapid rhythm with no murmur, gallop or rub. Abdomen: Soft, nontender with normal bowel sounds. Extremities: No edema. Distal pulses intact. Neurologic: No focal findings. Skin: No rash, ecchymoses or petechiae. Results & Data ([facility]) Vital Signs (Past 12 Hours) Vital Signs Temp Pulse Pulse Resp BP BP Pulse Ox 08/11/21 15:20 36.7 C 95 H 22 102/68 91 08/11/21 15:00 110 H 08/11/21 11:35 36.4 C L 110 H 20 129/85 99 08/11/21 07:20 36.6 C 112 H 19 136/71 96 Laboratory Results CBC 08/11/21 Range/Units 05:45 WBC 11.88 H (4.8-10.8) K/uL RBC 3.53 L (4.2-5.4) M/uL Hgb 8.9 L (12.0-16.0) g/dL Hct 29.6 L (37-47) % Plt Count 236 (130-400) K/uL Comprehensive Metabolic Panel 08/11/21 Range/Units 05:45 Sodium 123 L (136-145) mmol/L Potassium 4.0 (3.5-5.1) mmol/L Chloride 85 L (98-107) mmol/L Carbon Dioxide 33 H (21-32) mmol/L BUN 9 (7-18) mg/dl Creatinine 0.36 L (0.6-1.2) mg/dl Glucose 87 (70-99) mg/dl Calcium 8.8 (8.5-10.1) mg/dl Intake and Output 08/11/21 08/11/21 08/11/21 06:59 14:59 22:59 Intake Total 171.732 / 846.732 675 / 846.732 Output Total 200 / 775 1400 / 1750 350 / 1750 Balance -200 / -151.098 -1228.268 / -903.268 325 / -903.268 Intake: IV 171.732 / 171.732 Amiodarone / D5w 360 mg In 200 171.732 / 171.732 ml @ 0.5 MG/MIN 16.667 mls/hr IV .Q12H [facility] Rx#:[id number] Oral 675 / 675 Output: Urine Amount (Catheter) 200 / 775 1400 / 1750 350 / 1750 Duffy/Indwelling 200 / 775 1400 / 1750 350 / 1750 Other: Weight 65 kg 65 kg Weight Measurement Method Built in [facility] Patient Weight 08/12/21 06:59 Weight 65 kg Diagnostic Findings Telemetry: Sinus rhythm with PAF, atrial fibrillation around 100 bpm, mostly sinus rhythm PG Care Time/CCT Total # of Minutes Spent Total Time Spent with Patient: Total time spent is greater than 50% in coordination of care (as documented) at patient's floor/unit and/or counseling patient: Coding Level of Care Code 74814 Subseq Hosp Care Lvl 2 Diagnoses Atrial flutter I48.3 Atrial flutter type: typical Anticoagulant long-term use Z79.01 Respiratory failure J96.21 Chronicity: acute on chronic Respiratory failure complication: hypoxia CHF (congestive heart failure) I50.9 Heart failure chronicity: acute Heart failure type: unspecified (1) CHF (congestive heart failure) Heart failure chronicity: acute Heart failure type: unspecified Qualified Code(s): I50.9 - Heart failure, unspecified (2) Atrial flutter Atrial flutter type: typical Qualified Code(s): I48.3 - Typical atrial flutter (3) Respiratory failure Chronicity: acute on chronic Respiratory failure complication: hypoxia Qualified Code(s): J96.21 - Acute and chronic respiratory failure with hypoxia
[2021-08-11] MEDS: AMIODARONE 200 MG TAB PO SCH (18:34)
[2021-08-11] MEDS: UREA (UREA-NA) 15 GM PACK PO SCH (21:07)
[2021-08-11] MEDS: MONTELUKAST SODIUM 10 MG TABLET PO SCH (21:08)
[2021-08-11] MEDS: ASPIRIN 81 MG ECTAB PO SCH (21:09)
[2021-08-12] MEDS: LEVOTHYROXINE SODIUM 112 MCG TABLET PO SCH (05:46)
[2021-08-12 06:18] LABS: Hematocrit (blood only) 28.1 % (37-47); Hemoglobin 8.6 g/dL (12.0-16.0); Mean Corpuscular Hemoglobin 25.6 pg (25-34); Mean Corpuscular Hgb Conc 30.6 g/dL (32-36); Mean Corpuscular Volume 83.6 fL (80-100); Mean Platelet Volume 10.4 fL (7.4-10.4); Platelet Count 206 K/uL (130-400); RDW Coefficient of Variation 19.3 % (11.5-14.5); RDW Standard Deviation 59.7 fL (36.4-46.3); Red Blood Count 3.36 M/uL (4.2-5.4); White Blood Count 11.45 K/uL (4.8-10.8)
[2021-08-12 07:02] LABS: BUN Creatinine Ratio 30.5 (10-20); Calcium 8.8 mg/dl (8.5-10.1); Creatinine Clr Calc Pharmacy 179.6 ml/min; Est GFR (African American) 145.5 ml/min; Est GFR (Non-African American) 125.5 ml/min; Potassium 3.5 mmol/L (3.5-5.1)
[2021-08-12] MEDS: DOCUSATE SODIUM/SENNA 50/8.6MG TAB PO SCH (07:46)
[2021-08-12] MEDS: cephALEXin 500 MG CAP PO SCH ×2 (07:46→21:10)
[2021-08-12] MEDS: APIXABAN 5 MG TABLET PO SCH ×2 (07:47→21:10)
[2021-08-12] MEDS: SODIUM CHLORIDE 1 GM TABLET PO SCH ×3 (07:47→21:09)
[2021-08-12] MEDS: PANTOprazole 40 MG TAB PO SCH ×2 (07:47→21:10)
[2021-08-12] MEDS: LIOTHYRONINE SODIUM 5 MCG TAB PO SCH ×2 (07:47→21:11)
[2021-08-12] MEDS: buPROPion SR 100 MG TABCR PO SCH (07:48)
[2021-08-12] MEDS: UREA (UREA-NA) 15 GM PACK PO SCH ×2 (07:48→21:12)
[2021-08-12] MEDS: THIOTHIXENE 5 MG CAP PO SCH (07:48)
[2021-08-12] MEDS: FLUTICASONE/VILANTEROL 200/25MCG 14 PUFFS/INHALER INH SCH (07:49)
[2021-08-12] MEDS: PRAVASTATIN SOD 40 MG TAB PO SCH (07:49)
[2021-08-12] MEDS: MULTIVITAMIN TAB PO SCH (07:49)
[2021-08-12] MEDS: VERAPAMIL HCL 240 MG TABCR PO SCH (07:50)
[2021-08-12] MEDS: AMIODARONE 200 MG TAB PO SCH ×3 (07:50→16:34)
[2021-08-12] MEDS: AMIODARONE / D5W 360 MG/200 ML BAG IV SCH ×2 (08:21→20:14)
--- NOTE | 2021-08-12 09:44 | Cardiology Progress Note ---
Date of Service August 12, 2021 Assessment & Plan (1) Atrial flutter: (2) Anticoagulant long-term use: (3) Respiratory failure: (4) CHF (congestive heart failure): Plan: 1. Atrial flutter: Her atrial fibrillation/flutter burden has increased over the last 24 hours which is not surprising as we discontinued intravenous amiodarone and she is not fully loaded orally. I think this is acceptable, I would continue with oral amiodarone and although the heart rate is a little bit fast I think it is acceptable for the time being. 2. Anticoagulation: She has been on Eliquis, she seems to be doing well on it. 3. Respiratory failure: I believe this is primarily COPD however she did have a suggestion of congestive heart failure on admission with her chest x-ray and her BNP. Her weight has been stable for some time and I do not believe she is in significant heart failure currently. 4. Congestive heart failure: I believe she did have some congestive heart failure on presentation, she has lost fluid and some weight. Admission and Anticipated Discharge Date Admission Date: August 06, 2021 Subjective She tells me that she is feeling well today, she remains supine in bed and appears to be comfortable this morning. She appears to have no side effects on oral amiodarone and denies bleeding. Physical Exam Physical Exam: Constitutional: Alert, cooperative and in no distress. HEENT: Unremarkable Neck: No jugular venous distention, carotid pulses are normal and equal bilaterally without bruits. Pulmonary: clear to auscultation . Cardiac: Regu irregular rapid rhythm with no murmur, gallop or rub. Abdomen: Soft, nontender with normal bowel sounds. Extremities: No edema. Distal pulses intact. Neurologic: No focal findings. Skin: No rash, ecchymoses or petechiae. Results & Data ([facility]) Vital Signs (Past 12 Hours) Vital Signs Temp Pulse Pulse Resp BP BP Pulse Ox 08/12/21 08:00 83 08/12/21 07:47 36.3 C L 102 H 137/85 98 08/12/21 04:07 36.5 C 100 H 20 124/77 97 08/11/21 23:24 36.5 C 111 H 16 133/74 97 08/11/21 23:00 83 Laboratory Results CBC 08/12/21 Range/Units 05:42 WBC 11.45 H (4.8-10.8) K/uL RBC 3.36 L (4.2-5.4) M/uL Hgb 8.6 L (12.0-16.0) g/dL Hct 28.1 L (37-47) % Plt Count 206 (130-400) K/uL Comprehensive Metabolic Panel 08/12/21 Range/Units 05:42 Sodium 122 L (136-145) mmol/L Potassium 3.5 (3.5-5.1) mmol/L Chloride 81 L (98-107) mmol/L Carbon Dioxide 33 H (21-32) mmol/L BUN 8 (7-18) mg/dl Creatinine 0.28 L (0.6-1.2) mg/dl Glucose 93 (70-99) mg/dl Calcium 8.8 (8.5-10.1) mg/dl Intake and Output 08/11/21 08/12/21 08/12/21 22:59 06:59 14:59 Intake Total 875 / 1446.732 400 / 1446.732 200 / 200 Output Total 350 / 2850 1100 / 2850 Balance 525 / -1403.268 -700 / -1403.268 200 / 200 Intake: IV 200 / 371.732 200 / 200 Amiodarone / D5w 360 mg In 200 200 / 371.732 200 / 200 ml @ 0.5 MG/MIN 16.667 mls/hr IV .Q12H [facility] Rx#:[id number] Oral 675 / 1075 400 / 1075 Output: Urine Amount (Catheter) 350 / 2850 1100 / 2850 Duffy/Indwelling 350 / 2850 1100 / 2850 Other: Weight 64.8 kg Weight Measurement Method Built in [facility] Diagnostic Findings Telemetry: Mostly atrial fibrillation around 100 bpm, less sinus rhythm past 24 hours. PG Care Time/CCT Total # of Minutes Spent Total Time Spent with Patient: Total time spent is greater than 50% in coordination of care (as documented) at patient's floor/unit and/or counseling patient: Coding Level of Care Code 20629 Subseq Hosp Care Lvl 2 Diagnoses Atrial flutter I48.3 Atrial flutter type: typical Anticoagulant long-term use Z79.01 Respiratory failure J96.21 Chronicity: acute on chronic Respiratory failure complication: hypoxia CHF (congestive heart failure) I50.9 Heart failure type: unspecified Heart failure chronicity: acute (1) Atrial flutter Atrial flutter type: typical Qualified Code(s): I48.3 - Typical atrial flutter (2) Respiratory failure Chronicity: acute on chronic Respiratory failure complication: hypoxia Qualified Code(s): J96.21 - Acute and chronic respiratory failure with hypoxia (3) CHF (congestive heart failure) Heart failure type: unspecified Heart failure chronicity: acute Qualified Code(s): I50.9 - Heart failure, unspecified
--- NOTE | 2021-08-12 14:55 | Hospitalist Progress Note ---
Date of Service August 12, 2021 Assessment & Plan (1) Acute and chronic respiratory failure: Plan: per Dr. Zheng's notes with addendum: (1) Small cell carcinoma of lung: (2) Acute and chronic respiratory failure: (3) Acute exacerbation of chronic obstructive pulmonary disease (COPD): Plan: 60 yo F w/ PMH of CAD status post stent, A. fib on Eliquis, recurrent metastatic SCLC sp chemoradiation, CVA, chronic respiratory failure secondary to COPD on home O2 (3L), RAKESH on CPAP, chronic hyponatremia, SIADH, prediabetes, chronic anemia (baselinehemoglobin 9), schizoaffective/mood disorder, hypothyroidism, prediabetes, esophageal dysmotility as per records, recurrent UTIs on methenamine suppression Rx, past tobacco abuse presented 08/05 to our ED with complaint of worsening SOB for few weeks [employer] associated with left-sided chest pain but no cough symptoms. Patient also complained of left hip pain worse with motion that caused her to fall down on the day of arrival. Patient denies any fever chills or dysuria or abdominal pain at presentation. Patient did not take her nighttime meds prior to arrival secondary to not feeling well. She is being managed for the following: #. Acute on chronic respiratory failure: #. Pulmonary edema --likely 2/2 Afib RVR component and likely diastolic HF #. Small pleural effusion- L>R, c/t monitor #. AE COPD-onprednisone, nebulization, continue supplemental oxygen. Chronic respiratory failure secondary to COPD on home O2 - 3L, RAKESH on CPAP Multifactorial : COPD exacerbation, Mild pulmonary congestion, lung cancer, A. fib with RVR. Admitting CTA chest negative for pulmonary embolism, positive for pulmonary edema. Also revealed bilateral pleural effusion, pulmonary hypertension, unchanged 14 mm GARETH nodule. Admitting proBNP elevated at 3661. 08/07 echo---> LV and RV systolic function normal, RV borderline dilated, RV systolic pressure elevated at 40-50 mmHg. EF 60 to 65%. Continue with supplemental oxygen as needed, wean down as tolerated to baseline. Wheezing resolved Might be contributed by congestive heart failure, see below. Lasix as needed. giving 20 mg iv lasix today. Continue to monitor pleural effusion. 08/12 Acute on chronic respiratory failure secondary to Acute on Chronic Diastolic Heart Failure diuresed well negative 2 L fluid balance repeat CXR today Possible COPD exacerbation given Prednisone course 40mg x 4 days requiring 6 L today will give 30mg x 2 days, 20mg x 2 days, then 10mg x 2 days monitor #. A. fib with RVR #. Acute congestive heart failure/diastolic Patient noted to be in A. fib with RVR at presentation. Rapid A. fib secondary to illness versus missed p.o. medication versus both. On Eliquis for anticoagulation. c/w Eliquis Cardio managing amio gtt, Flecainaide on hold. Her admitting BNP elevated with admitting imaging showing cardiomegaly. 08/07 Echo as above Prior BNP levels WNL. Likely diastolic heart failure. Cardiology on board,await further recommendations Strict I's and O's, Lasix prn, lasix today. 08/12 Publicity Expert on board currently being transitioned to Amiodarone PO HR now controlled continue to monitor currently appears euvolemic, BP also marginal negative 2 L fluid balance hold off additional IV Lasix #. Left hip pain Admitting imaging ruled out fracture or any other acute findings. Patient reporting pain under control at bedside exam. Pain meds as needed, continue to monitor. #. Complicated UTI History of recurrent UTI on methenamine suppression treatment. Urine analysis suggestive of UTI, urinary culture pansensitive E. coli. Continue with ATB 08/06. -- on Cephalexin PO #. Recurrent metastatic SCLC #. Chronic hyponatremia likely SIADH 2/2 SCLC Patient voluntarily stopped taking chemotherapy 3 weeks ago [employer]. 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 Mets to brain, mets to liver. Patient and her brother [primary contact] value comfort over any active inte rvention. They have a discussion with palliative care at [facility]. Upon discussion, they agreed to explore hospice. They also gave hint during the discussion that they had slightly touched hospice topic in the past. Given poor prognosis, highly recommend discussion with hospice. Patient and her brotherMrTarun Andrade had discussion with hospice care transitions coordinator 08/08 at 1 PM. #. Other chronic medical conditions: CAD status post stent, CVA, chronic hyponatremia, prediabetes, chronic anemia, schizoaffective/mood disorder, hypothyroidism Monitor as appropriate, resume home meds when able. Urea BID for hyponatremia. c/t monitor. DVT prophylaxis. Eliquis DNR 12/16: Her brother, Mr. Raymond Syed (contact #[phone]) contacted and given update, answered all the question, discuss about goals of care, wanted to explore hospice. He voiced understanding and was agreeable to the plan of care. Admission and Anticipated Discharge Date Admission Date: August 06, 2021 Subjective ff up for acute on chronic respiratory failure, etc seen resting in bed, comfortable on 6 L O2 via oxymask states she feels fine overall denies shortness of breath, cough, fever/chills no chest pain, palpitations, dizziness no abdominal pain ,nausea no other symptoms Review of Systems Review of Systems: all noted and negative except for above Physical Exam Physical Exam: General- oriented x 3, not in distress, speaks in sentences with no effort or accessory muscle use Eyes- anicteric Neck- no JVD Lungs- mild rales at the right base Heart- normal rate, regular rhythm; no murmurs Abdomen- normal bowel sounds, nondistended, soft, nontender Extremities- no pretibial edema, no calf tenderness Neuro- alert, oriented x 3; no gross focal neurologic deficits Skin- warm & dry Results & Data Results & Data ([facility]) Vital Signs (Past 12 Hours) Vital Signs Temp Pulse Pulse Resp BP Pulse Ox 08/12/21 11:00 36.4 C L 72 94/65 L 99 08/12/21 08:00 83 08/12/21 07:47 36.3 C L 102 H 137/85 98 08/12/21 04:07 36.5 C 100 H 20 124/77 97 all noted and reviewed including below
--- NOTE | 2021-08-12 15:24 | XRay Report ---
XR chest 1V portable CLINICAL HISTORY: ff up hypoxia, TECHNIQUE: Single frontal radiograph of the chest was obtained. Comparison: Comparison is made to chest one view 08/06/2021 FINDINGS: Lines and tubes are stable. The cardiomediastinal silhouette is normal. Left lung opacities are seen most prominent in the lower aspect of the lung. Small right lung base opacity is seen. A left pleural effusion cannot be excluded. IMPRESSION: 1. Interval development of left greater than right airspace opacities which may represent atelectasi s, pneumonia, and/or aspiration. 2. Possible left pleural effusion. ACT 112: Negative or not required by law. Electronically signed by: Tino Westbrook M.D. 08/12/2021 3:23 PM
[2021-08-12] MEDS: MONTELUKAST SODIUM 10 MG TABLET PO SCH (21:11)
[2021-08-12] MEDS: ASPIRIN 81 MG ECTAB PO SCH (21:11)
[2021-08-12] MEDS: IPRATROPIUM BROMIDE NEB SOLN 0.02% 2.5 ML VIAL INH PRN (22:25)
[2021-08-12] MEDS: LEVALBUTEROL 1.25MG/0.5ML NEB INH PRN (22:25)
[2021-08-13] MEDS: LEVOTHYROXINE SODIUM 112 MCG TABLET PO SCH (06:17)
[2021-08-13] MEDS: DOCUSATE SODIUM/SENNA 50/8.6MG TAB PO SCH (07:31)
[2021-08-13] MEDS: AMIODARONE 200 MG TAB PO SCH ×3 (07:32→16:54)
[2021-08-13] MEDS: VERAPAMIL HCL 240 MG TABCR PO SCH (07:32)
[2021-08-13] MEDS: MULTIVITAMIN TAB PO SCH (07:32)
[2021-08-13] MEDS: THIOTHIXENE 5 MG CAP PO SCH (07:32)
[2021-08-13] MEDS: PANTOprazole 40 MG TAB PO SCH ×2 (07:33→20:54)
[2021-08-13] MEDS: SODIUM CHLORIDE 1 GM TABLET PO SCH ×3 (07:33→20:54)
[2021-08-13] MEDS: PRAVASTATIN SOD 40 MG TAB PO SCH (07:33)
[2021-08-13] MEDS: LIOTHYRONINE SODIUM 5 MCG TAB PO SCH ×2 (07:33→20:56)
[2021-08-13] MEDS: cephALEXin 500 MG CAP PO SCH (07:34)
[2021-08-13] MEDS: APIXABAN 5 MG TABLET PO SCH ×2 (07:34→20:53)
[2021-08-13] MEDS: FLUTICASONE/VILANTEROL 200/25MCG 14 PUFFS/INHALER INH SCH (07:35)
[2021-08-13] MEDS: UREA (UREA-NA) 15 GM PACK PO SCH ×3 (07:35→20:55)
[2021-08-13] MEDS: buPROPion SR 100 MG TABCR PO SCH (07:35)
[2021-08-13] MEDS: AMIODARONE / D5W 360 MG/200 ML BAG IV SCH (07:41)
[2021-08-13] MEDS ORDERED: FUROSEMIDE INJ 20 MG/2 ML VIAL IV ONE ×3 (07:43→11:00)
[2021-08-13] MEDS ORDERED: FUROSEMIDE 40 MG/4 ML VIAL IV STA (08:00)
[2021-08-13] MEDS ORDERED: methylPREDNISolone 40 MG in SYRINGE 0 ML IV ONE (08:30)
[2021-08-13 08:54] LABS: BUN Creatinine Ratio 32.3 (10-20); Calcium 8.5 mg/dl (8.5-10.1); Creatinine Clr Calc Pharmacy 145.3 ml/min; Est GFR (African American) 135.2 ml/min; Est GFR (Non-African American) 116.6 ml/min; Potassium 3.7 mmol/L (3.5-5.1)
[2021-08-13] MEDS: FUROSEMIDE 40 MG/4 ML VIAL IV SCH ×2 (10:39→20:56)
[2021-08-13] MEDS ORDERED: Nursing to Pharmacy Communication SCH (10:45)
[2021-08-13] MEDS: SODIUM CHLORIDE 0.9% 1000ML 1,000 ML IV SCH (10:46)
[2021-08-13 11:35] LABS: BUN Creatinine Ratio 25.7 (10-20); Calcium 8.3 mg/dl (8.5-10.1); Creatinine Clr Calc Pharmacy 124.1 ml/min; Est GFR (African American) 128.3 ml/min; Est GFR (Non-African American) 110.7 ml/min; Potassium 3.5 mmol/L (3.5-5.1)
[2021-08-13] MEDS ORDERED: XOPENEX/ATROVENT 1.25mg/0.5MG NEB COMBO NEB SCH (13:00)
--- NOTE | 2021-08-13 13:02 | Hospitalist Progress Note ---
Date of Service August 13, 2021 Assessment & Plan (1) Acute and chronic respiratory failure: Plan: per Dr. Zheng's notes with addendum: (1) Small cell carcinoma of lung: (2) Acute and chronic respiratory failure: (3) Acute exacerbation of chronic obstructive pulmonary disease (COPD): Plan: 60 yo F w/ PMH of CAD status post stent, A. fib on Eliquis, recurrent metastatic SCLC sp chemoradiation, CVA, chronic respiratory failure secondary to COPD on home O2 (3L), RAKESH on CPAP, chronic hyponatremia, SIADH, prediabetes, chronic anemia (baselinehemoglobin 9), schizoaffective/mood disorder, hypothyroidism, prediabetes, esophageal dysmotility as per records, recurrent UTIs on methenamine suppression Rx, past tobacco abuse presented 08/05 to our ED with complaint of worsening SOB for few weeks [employer] associated with left-sided chest pain but no cough symptoms. Patient also complained of left hip pain worse with motion that caused her to fall down on the day of arrival. Patient denies any fever chills or dysuria or abdominal pain at presentation. Patient did not take her nighttime meds prior to arrival secondary to not feeling well. She is being managed for the following: #. Acute on chronic respiratory failure: #. Pulmonary edema --likely 2/2 Afib RVR component and likely diastolic HF #. Small pleural effusion- L>R, c/t monitor #. AE COPD-onprednisone, nebulization, continue supplemental oxygen. Chronic respiratory failure secondary to COPD on home O2 - 3L, RAKESH on CPAP Multifactorial : COPD exacerbation, Mild pulmonary congestion, lung cancer, A. fib with RVR. Admitting CTA chest negative for pulmonary embolism, positive for pulmonary edema. Also revealed bilateral pleural effusion, pulmonary hypertension, unchanged 14 mm GARETH nodule. Admitting proBNP elevated at 3661. 08/07 echo---> LV and RV systolic function normal, RV borderline dilated, RV systolic pressure elevated at 40-50 mmHg. EF 60 to 65%. Continue with supplemental oxygen as needed, wean down as tolerated to baseline. Wheezing resolved Might be contributed by congestive heart failure, see below. Lasix as needed. giving 20 mg iv lasix today. Continue to monitor pleural effusion. 08/12 Acute on chronic respiratory failure secondary to Acute on Chronic Diastolic Heart Failure diuresed well negative 2 L fluid balance repeat CXR today Possible COPD exacerbation given Prednisone course 40mg x 4 days requiring 6 L today will give 30mg x 2 days, 20mg x 2 days, then 10mg x 2 days monitor 08/13 repeat CXR: left pleural effusion- moderate requiring 6 L NC Lasix 40mg IV ordered patient declines thoracentesis, pleurex cath evaluation after discussion with her she prefers not to have any invasive procedures continue with diuresis Nephro on board #. A. fib with RVR #. Acute congestive heart failure/diastolic Patient noted to be in A. fib with RVR at presentation. Rapid A. fib secondary to illness versus missed p.o. medication versus both. On Eliquis for anticoagulation. c/w Eliquis Cardio managing amio gtt, Flecainaide on hold. Her admitting BNP elevated with admitting imaging showing cardiomegaly. 08/07 Echo as above Prior BNP levels WNL. Likely diastolic heart failure. Cardiology on board,await further recommendations Strict I's and O's, Lasix prn, lasix today. 08/12 [employer] on board currently being transitioned to Amiodarone PO HR now controlled continue to monitor currently appears euvolemic, BP also marginal negative 2 L fluid balance hold off additional IV Lasix 08/13 on IV and PO amio will discuss with Dr. Adorno if IV amio can be d/c'd #. Left hip pain Admitting imaging ruled out fracture or any other acute findings. Patient reporting pain under control at bedside exam. Pain meds as needed, continue to monitor. #. Complicated UTI History of recurrent UTI on methenamine suppression treatment. Urine analysis suggestive of UTI, urinary culture pansensitive E. coli. Continue with ATB 08/06. -- on Cephalexin PO- d/c today #. Recurrent metastatic SCLC #. Chronic hyponatremia likely SIADH 2/2 SCLC Patient voluntarily stopped taking chemotherapy 3 weeks ago [employer]. 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 Mets to brain, mets to liver. Patient and her brother [primary contact] value comfort over any active intervention. They have a discussion with palliative care at [facility]. Upon discussion, they agreed to explore hospice. They also gave hint during the discussion that they had slightly touched hospice topic in the past. Given poor prognosis, highly recommend discussion with hospice. Patient and her brotherMrTarun Andrade had discussion with hospital nurse liaison 08/08 at 1 PM. Na 118 Nephro consulted #. Other chronic medical conditions: CAD status post stent, CVA, chronic hyponatremia, prediabetes, chronic anemia, schizoaffective/mood disorder, hypothyroidism Monitor as appropriate, resume home meds when able. Urea BID for hyponatremia. c/t monitor. DVT prophylaxis. Libertad DNR Admission and Anticipated Discharge Date Admission Date: August 06, 2021 Subjective ff up for acute hypoxic respiratory failure, pleural effusion, lung CA, etc seen resting in bed, at 6 L NC some effort with breathing but states she feels fine states " i want to go home tomorrow" denies cough, fever/chills no chest pain, dyspnea, palpitations, dizziness no other symptoms Review of Systems Review of Systems: all noted and negative except for above Physical Exam Physical Exam: General- oriented x 3, not in distress, speaks in sentences with no effort or accessory muscle use Eyes- anicteric Neck- no JVD Lungs- mild rales and decreased BS on the left base clear on the right Heart- normal rate, regular rhythm; no murmurs Abdomen- normal bowel sounds, nondistended, soft, nontender Extremities- no pretibial edema, no calf tenderness Neuro- alert, oriented x 3; no gross focal neurologic deficits Skin- warm & dry Results & Data Results & Data ([facility]) Vital Signs (Past 12 Hours) Vital Signs Temp Pulse Pulse Resp BP Pulse Ox 08/13/21 06:59 36.9 C 80 24 134/71 99 08/13/21 04:00 37.0 C 79 20 128/75 97 08/13/21 01:44 78 all noted and reviewed including below
[2021-08-13] MEDS: IPRATROPIUM BROMIDE NEB SOLN 0.02% 2.5 ML VIAL INH SCH ×2 (14:22→20:09)
[2021-08-13] MEDS: LEVALBUTEROL 1.25MG/0.5ML NEB INH SCH ×2 (14:22→20:09)
--- NOTE | 2021-08-13 14:25 | Consultation Report ---
NEPHROLOGY CONSULTATION NOTE DATE OF CONSULTATION: 08/13/2021. REASON FOR CONSULTATION: Hyponatremia. HISTORY OF PRESENT ILLNESS: The patient is a 60-year-old female admitted on 08/06/2021 which would b e 1 week ago through the Emergency Department. She presented to the emergency because of increasing shortness of breath as well as left sided chest pain. She was also having worsening left hip pain, w hich caused her to fall. She was hypoxic upon arrival to the Emergency Department and was noted to b e in rapid AFib with rapid ventricular response. Since admission, she has been seen by Cardiology an d is currently getting IV amiodarone as well as flecainide. She did receive some doses of Lasix, but currently she is not getting any. Serum sodium is consistently low, even as an outpatient and fluctu ates a lot, but the most recent outpatient serum sodium was 134 as of 07/20/2021. She has been getti ng her salt tablet while inpatient at the same dose as outpatient, which is at 1 gram 3 times a day. She is also getting urea 15 grams twice daily, but even with that, serum sodium has actually consiste ntly dropped for the last one week. At the time of admission, serum sodium was baseline at 133, but s silas then it has dropped every day and is now 118. Renal function is normal. Urine osmolality was 2 68 with urine sodium 76. She does have some pleural effusion, but on examination otherwise does not appear to be in significant fluid overload. The patient does have metastatic small cell lung cancer and she is undergoing chemoradiation, but currently only on palliative radiation. Her chronic hypona tremia is secondary to SIADH and related with the lung cancer. PAST MEDICAL AND SURGICAL HISTORY: Already detailed in HPI. She does have coronary artery disease, status post stent, recurrent metastatic small cell lung cancer, status post chemoradiation, currently on palliative radiation, history of CVA, chronic respiratory failure secondary to COPD on home oxyge n, obstructive sleep apnea on CPAP, chronic hyponatremia from SIADH in the setting of malignancy, pre diabetes, chronic anemia, seizure affective/mood disorder, hypothyroidism, prediabetes, esophageal dy smotility, recurrent UTI on methenamine suppression, past tobacco abuse, breast biopsy, bunion surger y, dental surgery, sebaceous cyst removal. PERSONAL AND SOCIAL HISTORY: Past tobacco use. Occasional alcohol. ALLERGIES: List was reviewed in detail and is as per the reconciliation list. MEDICATIONS: At home was reviewed in detail and was reviewed. She does take sodium chloride 1 g 3 t imes a day as an outpatient for hyponatremia. FAMILY HISTORY: Negative for renal disease or dialysis. REVIEW OF SYSTEMS: As detailed in HPI; unless stated otherwise, 12 systems reviewed and negative. PHYSICAL EXAMINATION: GENERAL: A middle-aged white female, who appears chronically ill. She looks significantly older irish n her stated age. VITAL SIGNS: Blood pressure is 134/71, pulse rate 80, temperature 36.9. She is on 6 liters of oxyge n and saturating 99%. HEENT: Mucous membrane appears moist. NECK: Supple. No jugular venous distention. CHEST: Bilaterally clear to auscultation, somewhat diminished breath sounds. CARDIOVASCULAR: S1 and S2 regular. Soft systolic murmur heard. ABDOMEN: Soft, nontender. EXTREMITIES: Show no edema. LABORATORY TEST: Reviewed in detail, as stated earlier, her blood sodium typically runs in the low 1 30s as an outpatient. On admission, it was at baseline at 133, but since then it has gone down consi stently every day and is now critically low at 118, which is the most recent blood work, renal functi on normal with a BUN of 11 and creatinine 0.4, calcium is 8.3, albumin is 3.1, glucose is 277. Urine osmolality is 268. Urine sodium 76. Chest x-ray shows interval development of left greater than ri ght airspace opacities representing atelectasis, pneumonia and/or aspiration, possible left pleural e ffusion. ASSESSMENT AND PLAN: A 60-year-old female with known metastatic small cell lung cancer, undergoing p alliative radiation with chronic hyponatremia secondary to syndrome of inappropriate antidiuretic hor antolin secretion, now admitted with multitude of symptoms and was found to have worsening hyponatremia, for which I have been consulted. Hyponatremia: This is acute on chronic problem. She has known SIADH secondary to lung cancer. This is not an uncommon finding. As an outpatient, she does take salt tablet 1 gram 3 times a day, which has been continued and we will continue to do so. She is not eating much, which makes hyponatremia problem significantly worse. Her urine osmolality is still abnormal for her bloods sodium at this po int, but there is also significant component of very low solute in her diet secondary to very poor or al intake of food. Hyponatremia will be very hard to improve unless she eats more solid food high in protein. RECOMMENDATIONS: 1. Protein supplementation with protein drink. 2. Increase urea to 15 grams 3 times a day. 3. Continue salt tablet 1 gram 3 times a day. 4. Normal saline at 50 mL per hour. 5. We will also use Lasix 40 mg twice daily to see the response. It is worth noting that her serum sodium has consistently dropped for the last one week, so we do have to make significant change in he r management. However, the direction of the management will be based mainly on the direction of the serum sodium. Given her hyponatremia problem is very longstanding, I do not believe we have to use h ypertonic saline, especially given her status with metastatic lung cancer. As long as we can get the serum sodium higher than 125, she can be discharged, but at this time serum sodium is only 118. BMP again this evening. Job ID: [id number]
--- NOTE | 2021-08-13 15:08 | Cardiology Progress Note ---
Date of Service August 13, 2021 Assessment & Plan (1) Atrial flutter: (2) Anticoagulant long-term use: (3) Respiratory failure: (4) CHF (congestive heart failure): Plan: 1. Atrial flutter: Her atrial fibrillation/flutter burden has been present around the third of the time over the last 24 hours. I think this is acceptable for now as her amiodarone load continues. 2. Anticoagulation: She has been on Eliquis, she seems to be doing well on it. I would continue the current dose. 3. Respiratory failure: I believe this is primarily COPD however she did have a suggestion of congestive heart failure on admission with her chest x-ray and her BNP. Her weight has been stable for some time and I do not believe she is in significant heart failure currently. 4. Congestive heart failure: I believe she did have some congestive heart failure on presentation, she has lost fluid and some weight. Admission and Anticipated Discharge Date Admission Date: August 06, 2021 Subjective She claims to feel well although she is on a lot of supplemental oxygen, she does deny shortness of breath or chest discomfort or palpitations. Physical Exam Physical Exam: Constitutional: Alert, cooperative and in no distress. HEENT: Unremarkable Neck: No jugular venous distention, carotid pulses are normal and equal bilaterally without bruits. Pulmonary: clear to auscultation . Cardiac: Irregular rapid rhythm with no murmur, gallop or rub. Abdomen: Soft, nontender with normal bowel sounds. Extremities: No edema. Distal pulses intact. Neurologic: No focal findings. Skin: No rash, ecchymoses or petechiae. Results & Data ([facility]) Vital Signs (Past 12 Hours) Vital Signs Temp Pulse Resp BP Pulse Ox 08/13/21 06:59 36.9 C 80 24 134/71 99 08/13/21 04:00 37.0 C 79 20 128/75 97 Laboratory Results Comprehensive Metabolic Panel 08/13/21 08/13/21 Range/Units 08:05 10:38 Sodium 122 L 118 L* (136-145) mmol/L Potassium 3.7 3.5 (3.5-5.1) mmol/L Chloride 81 L 76 L (98-107) mmol/L Carbon Dioxide 36 H 34 H (21-32) mmol/L BUN 11 11 (7-18) mg/dl Creatinine 0.35 L 0.41 L (0.6-1.2) mg/dl Glucose 127 H 277 H (70-99) mg/dl Calcium 8.5 8.3 L (8.5-10.1) mg/dl Intake and Output 08/13/21 08/13/21 08/13/21 06:59 14:59 22:59 Intake Total 391.215 / 391.215 Output Total 200 / 425 800 / 800 Balance -200 / 813.452 -408.785 / -408.785 Intake: IV 391.215 / 391.215 Amiodarone / D5w 360 mg In 200 391.215 / 391.215 ml @ 0.5 MG/MIN 16.667 mls/hr IV .Q12H [facility] Rx#:[id number] Output: Urine Amount (Catheter) 200 / 425 800 / 800 Duffy/Indwelling 200 / 425 800 / 800 Other: Weight 66.4 kg Diagnostic Findings Telemetry: Currently in atrial fibrillation, she is in it about a third of the time over the last 24 hours with an average heart rate during atrial fibrillation of around 100. PG Care Time/CCT Total # of Minutes Spent Total Time Spent with Patient: Total time spent is greater than 50% in coordination of care (as documented) at patient's floor/unit and/or counseling patient: Coding Level of Care Code 33865 Subseq Hosp Care Lvl 2 Diagnoses Atrial flutter I48.3 Atrial flutter type: typical Anticoagulant long-term use Z79.01 Respiratory failure J96.21 Chronicity: acute on chronic Respiratory failure complication: hypoxia CHF (congestive heart failure) I50.9 Heart failure type: unspecified Heart failure chronicity: acute (1) Atrial flutter Atrial flutter type: typical Qualified Code(s): I48.3 - Typical atrial flutter (2) Respiratory failure Chronicity: acute on chronic Respiratory failure complication: hypoxia Qualified Code(s): J96.21 - Acute and chronic respiratory failure with hypoxia (3) CHF (congestive heart failure) Heart failure type: unspecified Heart failure chronicity: acute Qualified Code(s): I50.9 - Heart failure, unspecified
[2021-08-13 15:46] LABS: BUN Creatinine Ratio 25.3 (10-20); Calcium 8.3 mg/dl (8.5-10.1); Creatinine Clr Calc Pharmacy 118.3 ml/min; Est GFR (African American) 126.3 ml/min; Potassium 3.9 mmol/L (3.5-5.1)
[2021-08-13] MEDS: ASPIRIN 81 MG ECTAB PO SCH (20:54)
[2021-08-13] MEDS: MONTELUKAST SODIUM 10 MG TABLET PO SCH (20:54)
[2021-08-13 23:09] LABS: BUN Creatinine Ratio 27.2 (10-20); Calcium 8.1 mg/dl (8.5-10.1); Est GFR (African American) 139.2 ml/min; Est GFR (Non-African American) 120.1 ml/min; Potassium 3.4 mmol/L (3.5-5.1)
[2021-08-14] MEDS: LEVALBUTEROL 1.25MG/0.5ML NEB INH SCH ×2 (00:33→07:31)
[2021-08-14] MEDS: IPRATROPIUM BROMIDE NEB SOLN 0.02% 2.5 ML VIAL INH SCH ×2 (00:33→07:31)
[2021-08-14] MEDS: LEVOTHYROXINE SODIUM 112 MCG TABLET PO SCH (05:38)
[2021-08-14] MEDS: SODIUM CHLORIDE 0.9% 1000ML 1,000 ML IV SCH (05:50)
[2021-08-14] MEDS: PANTOprazole 40 MG TAB PO SCH (08:15)
[2021-08-14] MEDS: APIXABAN 5 MG TABLET PO SCH (08:15)
[2021-08-14] MEDS: DOCUSATE SODIUM/SENNA 50/8.6MG TAB PO SCH (08:16)
[2021-08-14] MEDS: VERAPAMIL HCL 240 MG TABCR PO SCH (08:16)
[2021-08-14] MEDS: SODIUM CHLORIDE 1 GM TABLET PO SCH (08:16)
[2021-08-14] MEDS: LIOTHYRONINE SODIUM 5 MCG TAB PO SCH (08:16)
[2021-08-14] MEDS: buPROPion SR 100 MG TABCR PO SCH (08:17)
[2021-08-14] MEDS: AMIODARONE 200 MG TAB PO SCH ×2 (08:17→12:28)
[2021-08-14] MEDS: THIOTHIXENE 5 MG CAP PO SCH (08:17)
[2021-08-14] MEDS: FLUTICASONE/VILANTEROL 200/25MCG 14 PUFFS/INHALER INH SCH (08:18)
[2021-08-14] MEDS: MULTIVITAMIN TAB PO SCH (08:20)
[2021-08-14] MEDS: FUROSEMIDE 40 MG/4 ML VIAL IV SCH (08:20)
[2021-08-14] MEDS: PRAVASTATIN SOD 40 MG TAB PO SCH (08:20)
[2021-08-14] MEDS: UREA (UREA-NA) 15 GM PACK PO SCH (08:21)
[2021-08-14] MEDS ORDERED: predniSONE 20 MG TAB PO STA (10:54)
--- NOTE | 2021-08-14 10:56 | Hospitalist Progress Note ---
Date of Service August 14, 2021 Assessment & Plan (1) Acute and chronic respiratory failure: Plan: per Dr. Zheng's notes with addendum: (1) Small cell carcinoma of lung: (2) Acute and chronic respiratory failure: (3) Acute exacerbation of chronic obstructive pulmonary disease (COPD): Plan: 60 yo F w/ PMH of CAD status post stent, A. fib on Eliquis, recurrent metastatic SCLC sp chemoradiation, CVA, chronic respiratory failure secondary to COPD on home O2 (3L), RAKESH on CPAP, chronic hyponatremia, SIADH, prediabetes, chronic anemia (baselinehemoglobin 9), schizoaffective/mood disorder, hypothyroidism, prediabetes, esophageal dysmotility as per records, recurrent UTIs on methenamine suppression Rx, past tobacco abuse presented 08/05 to our ED with complaint of worsening SOB for few weeks RN CLINICAL DOCUMENTATION associated with left-sided chest pain but no cough symptoms. Patient also complained of left hip pain worse with motion that caused her to fall down on the day of arrival. Patient denies any fever chills or dysuria or abdominal pain at presentation. Patient did not take her nighttime meds prior to arrival secondary to not feeling well. She is being managed for the following: #. Acute on chronic respiratory failure: #. Pulmonary edema --likely 2/2 Afib RVR component and likely diastolic HF #. Small pleural effusion- L>R, c/t monitor #. AE COPD-onprednisone, nebulization, continue supplemental oxygen. Chronic respiratory failure secondary to COPD on home O2 - 3L, RAKESH on CPAP Multifactorial : COPD exacerbation, Mild pulmonary congestion, lung cancer, A. fib with RVR. Admitting CTA chest negative for pulmonary embolism, positive for pulmonary edema. Also revealed bilateral pleural effusion, pulmonary hypertension, unchanged 14 mm GARETH nodule. Admitting proBNP elevated at 3661. 08/07 echo---> LV and RV systolic function normal, RV borderline dilated, RV systolic pressure elevated at 40-50 mmHg. EF 60 to 65%. Continue with supplemental oxygen as needed, wean down as tolerated to baseline. Wheezing resolved Might be contributed by congestive heart failure, see below. Lasix as needed. giving 20 mg iv lasix today. Continue to monitor pleural effusion. 08/12 Acute on chronic respiratory failure secondary to Acute on Chronic Diastolic Heart Failure diuresed well negative 2 L fluid balance repeat CXR today Possible COPD exacerbation given Prednisone course 40mg x 4 days requiring 6 L today will give 30mg x 2 days, 20mg x 2 days, then 10mg x 2 days monitor 08/13 repeat CXR: left pleural effusion- moderate requiring 6 L NC Lasix 40mg IV ordered patient declines thoracentesis, pleurex cath evaluation after discussion with her she prefers not to have any invasive procedures continue with diuresis Nephro on board 08/14 Stable overall On 6 L of oxygen mask To be transition to hospice services at home Discharge plan: Lasix 40 mg p.o. twice daily Prednisone taper Nebs as needed #. A. fib with RVR #. Acute congestive heart failure/diastolic Patient noted to be in A. fib with RVR at presentation. Rapid A. fib secondary to illness versus missed p.o. medication versus both. On Eliquis for anticoagulation. c/w Eliquis Cardio managing amio gtt, Flecainaide on hold. Her admitting BNP elevated with admitting imaging showing cardiomegaly. 08/07 Echo as above Prior BNP levels WNL. Likely diastolic heart failure. Cardiology on board,await further recommendations Strict I's and O's, Lasix prn, lasix today. 08/12 Relationship Consultant on board currently being transitioned to Amiodarone PO HR now controlled continue to monitor currently appears euvolemic, BP also marginal negative 2 L fluid balance hold off additional IV Lasix 08/13 on IV and PO amio will discuss with Dr. Adorno if IV amio can be d/c'd 08/14 Continue p.o. amiodarone upon discharge #. Left hip pain Admitting imaging ruled out fracture or any other acute findings. Patient reporting pain under control at bedside exam. Pain meds as needed, continue to monitor. #. Complicated UTI History of recurrent UTI on methenamine suppression treatment. Urine analysis suggestive of UTI, urinary culture pansensitive E. coli. Continue with ATB 08/06. --Completed course of cephalexin #. Recurrent metastatic SCLC #. Chronic hyponatremia likely SIADH 2/2 SCLC Patient voluntarily stopped taking chemotherapy 3 weeks ago RN CLINICAL DOCUMENTATION. 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 Mets to brain, mets to liver. Patient and her brother [primary contact] value comfort over any active intervention. They have a discussion with palliative care at [facility]. Upon discussion, they agreed to explore hospice. They also gave hint during the discussion that they had slightly touched hospice topic in the past. Given poor prognosis, highly recommend discussion with hospice. Patient and her brotherMrTarun Andrade had discussion with hospice admitting clerk 08/08 at 1 PM. Na 118 Nephro consulted-sodium chloride tablet increased, NSS given Continue Lasix and sodium chloride tablet upon discharge per nephrology service #. Other chronic medical conditions: CAD status post stent, CVA, chronic hyponatremia, prediabetes, chronic anemia, schizoaffective/mood disorder, hypothyroidism DVT prophylaxis. [facility] DNR Discharge home today with home hospice service Admission and Anticipated Discharge Date Admission Date: August 06, 2021 Subjective Follow-up for acute hypoxic respiratory failure, pleural effusion, etc. Seen resting in bed sleeping on 6 L of oxygen mask, comfortable Easily awakened States she feels fine overall Breathing is okay No other symptoms States she is ready and would like to be discharged today Review of Systems Review of Systems: all noted and negative except for above Physical Exam Physical Exam: General- oriented x 3, not in distress, speaks in sentences with no effort or accessory muscle use Eyes- anicteric Neck- no JVD Lungs-decreased breath sounds left base, clear on the right No crackles or wheezing Heart- normal rate, regular rhythm; no murmurs Abdomen- normal bowel sounds, nondistended, soft, nontender Extremities- no pretibial edema, no calf tenderness Neuro- alert, oriented x 3; no gross focal neurologic deficits Skin- warm & dry Results & Data Results & Data ([facility]) Vital Signs (Past 12 Hours) Vital Signs Temp Pulse Pulse Resp BP BP Pulse Ox 08/14/21 09:21 36.4 C L 107 H 24 119/77 142/78 H 100 08/14/21 07:37 36.4 C L 107 H 24 119/77 100 08/14/21 07:32 103 H 20 98 08/14/21 06:22 101 H 08/14/21 03:46 36.5 C 102 H 24 106/63 99 08/13/21 23:34 36.4 C L 71 24 118/72 98 all noted and reviewed including below
[2021-08-14 10:59] LABS: BUN Creatinine Ratio 24.5 (10-20); Calcium 8.2 mg/dl (8.5-10.1); Creatinine Clr Calc Pharmacy 138.4 ml/min; Est GFR (African American) 133.9 ml/min; Est GFR (Non-African American) 115.6 ml/min; Potassium 3.3 mmol/L (3.5-5.1)
--- NOTE | 2021-08-14 11:02 | Discharge Summary ---
Date of Service August 14, 2021 Admission HPI Per Admitting Provider History obtained from patient and records. Medical history significant for CAD status post stent, A. fib on Eliquis, recurrent metastatic SCLC sp chemoradiation, hx CVA, chronic respiratory failure secondary to COPD on home O2, RAKESH on CPAP, chronic hyponatremia, SIADH, prediabetes, chronic anemia (baseline hemoglobin 9), schizoaffective/mood disorder, hypothyroidism, prediabetes, history esophageal dysmotility as per records, recurrent UTIs on methenamine suppression Rx, past tobacco abuse. Last confinement March 2021 for metabolic encephalopathy secondary to E. coli UTI. Few weeks history of shortness of breath worse on exertion. Left-sided chest pain. No cough symptoms. No fluid retention as per patient. Patient also noted left hip pain somewhat worse with motion. Lowest O2 sats on room air was 86% on outpatient exercise oximetry last week. Patient pulmonology provider recommended increased oxygen for daytime use. Patient had worsening left hip pain today causing her to fall down. Patient denies abdominal pain, dysuria complaints, fever, chills. Patient unable to take nighttime meds secondary to not feeling well. O2 sats upon EMS arrival at home 80s on room air. Patient also noted to be in rapid A. fib. Patient brought to the ER for evaluation. Medical Historyas above Surgical History : Breast biopsy, bunion surgery, dental surgery, gynecologic procedure, sebaceous cyst removal Family History : Breast cancer, COPD Personal/Social history : Past tobacco abuse, occasional EtOH intake, disabled Admission Exam (Per Admitting) Constitutional GENERAL: uncomfortable, respiratory distress SKIN: Pallor, warm HEENT: pale palpebral conjunctivae, no ptosis, dry buccal mucosa, O2 mask in place NECK : Supple, no tenderness CHEST : Decreased breath sounds, expiratory wheezes, no tenderness HEART : Tachycardic, irregular, no obvious murmurs ABDOMEN: Some distention, nontender EXTREMITIES : No LE swelling/tenderness, no other conspicuous deformities noted NEUROLOGIC : Coherent, no facial asymmetry, gait and stance not assessed Discharge Data Consultations 08/06/21 02:15 ED Decision to Admit Stat 08/06/21 07:28 Consult Cardiology Routine 08/12/21 09:53 Consult Palliative Care Routine 08/13/21 07:56 Consult Nephrology Routine Procedures Performed CT angio chest PE protocol CLINICAL HISTORY: sob TECHNIQUE: Multidetector row helical CT of the chest was performed. Coronal and sagittal reformations were obtained. Automated dose lowering techniques and/or adjustment according to patient size were utilized for this exam. Comparison: Comparison is made to CT chest 05/01/2020 and PET/CT 07/15/2021 FINDINGS: Lungs and pleura: Diffuse centrilobular emphysema is seen most prominent in the upper lobes. There is a small right and moderate left pleural effusion. There is associated subsegmental atelectasis. Smooth intralobular septal thickening is seen. A 14 mm nodule in the left upper lobe is unchanged from prior PET/CT. Heart and pericardium: Heart size is normal. No pericardial effusion. Vessels: The pulmonary trunk is enlarged measuring 31 mm. No pulmonary embolism is seen. Moderate atherosclerotic changes are seen in the coronary arteries. Mediastinum and genesis: Subcentimeter lymph nodes are seen. Chest wall and lower neck: Unremarkable. Abdomen: Multiple hypodensities are seen in the liver compatible with metastatic disease. Bones: Unremarkable. IMPRESSION: 1. No evidence of pulmonary embolism. 2. Bilateral pleural effusions. 3. Pulmonary edema and pulmonary hypertension. 4. 14 mm nodule left upper lobe is unchanged from prior exam. ACT 112: Negative or not required by law. CT pelvis wo con CLINICAL HISTORY: Left hip pain. TECHNIQUE: Multiaxial CT images of the left hip are performed without contrast and reformatted in the sagittal and coronal plane. COMPARISON STUDY: Left hip radiograph 08/06/2021. Outside hospital PET/CT 07/15/2021. FINDINGS: Partially visualized large hepatic masses consistent with metastatic disease. This is similar to the prior study. Dominant lesion within the right hepatic lobe measures approximately 7.4 cm. Trace pelvic free fluid. The visualized loops of bowel show no wall thickening or obstruction. No fracture or dislocation within the pelvis or hips. The sacrum appears intact. IMPRESSION: 1. No fracture or dislocation within the pelvis or hips. 2. Multiple metastatic hepatic lesions again noted. ACT 112: Negative or not required by law. Hospital Course (1) Acute and chronic respiratory failure: per Dr. Zheng's notes with addendum: (1) Small cell carcinoma of lung: (2) Acute and chronic respiratory failure: (3) Acute exacerbation of chronic obstructive pulmonary disease (COPD): Plan: 60 yo F w/ PMH of CAD status post stent, A. 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 Patient also complained of left hip pain worse with motion that caused her to fall down on the day of arrival. Patient denies any fever chills or dysuria or abdominal pain at presentation. Patient did not take her nighttime meds prior to arrival secondary to not feeling well. She is being managed for the following: #. Acute on chronic respiratory failure: #. Pulmonary edema --likely 2/2 Afib RVR component and likely diastolic HF #. Small pleural effusion- L>R, c/t monitor #. AE COPD-onprednisone, nebulization, continue supplemental oxygen. Chronic respiratory failure secondary to COPD on home O2 - 3L, RAKESH on CPAP Multifactorial : COPD exacerbation, Mild pulmonary congestion, lung cancer, A. fib with RVR. Admitting CTA chest negative for pulmonary embolism, positive for pulmonary edema. Also revealed bilateral pleural effusion, pulmonary hypertension, unchanged 14 mm GARETH nodule. Admitting proBNP elevated at 3661. 08/07 echo---> LV and RV systolic function normal, RV borderline dilated, RV systolic pressure elevated at 40-50 mmHg. EF 60 to 65%. Continue with supplemental oxygen as needed, wean down as tolerated to baseline. Wheezing resolved Might be contributed by congestive heart failure, see below. Lasix as needed. giving 20 mg iv lasix today. Continue to monitor pleural effusion. 08/12 Acute on chronic respiratory failure secondary to Acute on Chronic Diastolic Heart Failure diuresed well negative 2 L fluid balance repeat CXR today Possible COPD exacerbation given Prednisone course 40mg x 4 days requiring 6 L today will give 30mg x 2 days, 20mg x 2 days, then 10mg x 2 days monitor 08/13 repeat CXR: left pleural effusion- moderate requiring 6 L NC Lasix 40mg IV ordered patient declines thoracentesis, pleurex cath evaluation after discussion with her she prefers not to have any invasive procedures continue with diuresis Nephro on board 08/14 Stable overall On 6 L of oxygen mask To be transitioned to hospice services at home Discharge plan: Lasix 40 mg p.o. twice daily Prednisone taper Nebs as needed #. A. fib with RVR #. Acute congestive heart failure/diastolic Patient noted to be in A. fib with RVR at presentation. Rapid A. fib secondary to illness versus missed p.o. medication versus both. On Eliquis for anticoagulation. c/w Eliquis Cardio managing amio gtt, Flecainaide on hold. Her admitting BNP elevated with admitting imaging showing cardiomegaly. 08/07 Echo as above Prior BNP levels WNL. Likely diastolic heart failure. Cardiology on board,await further recommendations Strict I's and O's, Lasix prn, lasix today. 08/12 Banquet Set Up Person on board currently being transitioned to Amiodarone PO HR now controlled continue to monitor currently appears euvolemic, BP also marginal negative 2 L fluid balance hold off additional IV Lasix 08/13 on IV and PO amio will discuss with Dr. Adorno if IV amio can be d/c'd 08/14 Continue p.o. amiodarone upon discharge #. Left hip pain Admitting imaging ruled out fracture or any other acute findings. Patient reporting pain under control at bedside exam. Pain meds as needed, continue to monitor. #. Complicated UTI History of recurrent UTI on methenamine suppression treatment. Urine analysis suggestive of UTI, urinary culture pansensitive E. coli. Continue with ATB 08/06. --Completed course of cephalexin #. Recurrent metastatic SCLC #. 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 Mets to brain, mets to liver. Patient and her brother [primary contact] value comfort over any active inter vention. They have a discussion with palliative care at [facility]. Upon discussion, they agreed to explore hospice. They also gave hint during the discussion that they had slightly touched hospice topic in the past. Given poor prognosis, highly recommend discussion with hospice. Patient and her brotherMrTarun Andrade had discussion with physician liaison 08/08 at 1 PM. Na 118 Nephro consulted-sodium chloride tablet increased, NSS given Continue Lasix and sodium chloride tablet upon discharge per nephrology service #. Other chronic medical conditions: CAD status post stent, CVA, chronic hyponatremia, prediabetes, chronic anemia, schizoaffective/mood disorder, hypothyroidism DVT prophylaxis. [facility] DNR Discharge home today with home hospice service
[2021-08-14 12:08] VITALS: BP 102/65; PULSE 92; TEMP 97.7; O2SAT 94
== END 2021-08-14 12:43 | disposition hospice, home (50) | DRG 291 ==
LOC: ED 23:33 → EDINP 08-06 03:44 → SUATTDRO 08-06 03:44 → 2S 08-06 06:36